=== PATIENT | male | born 1955 | race Caucasian/White ===

== ENCOUNTER → 2016-08-19 | Outpatient (CLI) | payer MEDICARE, OTHER ==
[2016-08-05 09:41] VITALS: BP 114/36
[~2016-08-19] MED LIST: ALPR0.254 PO; AMLO5TAB2 PO; ASCO500T2 PO; ASPI-482 PO; ATOR20TA58 PO; BISA10SU2 RC; CALC300T5 PO; CARV3.122 PO; CEFE1VIA5 IJ; DAPT500V IV; DARB60DI SQ; DOXY100C2 PO; DOXY100T9 PO; ENOX150D3 SQ; ENOX40DI SQ; ESCI10TA PO; FURO-68 PO; FURO80TA3 IV; GUAI600T38 PO; HYDR-2666 PO; HYDR25TA9 PO; Hydrocodone Bit/Acetaminophen PO; INSU100I13 SQ; INSU100I17 SQ; INSU100V13 SQ; IPRA4AER IH; LIDO700A4 TD; LISI40TA PO; METF10002 PO; METO5TAB55 PO; MULT1TAB52 PO; OMEP20CA5 PO; OXYC1TAB7 PO; OXYC5TAB88 PO; PANT40TA3 PO; PIOG45TA PO; RAMI10CA PO; SENN-22 PO; SENN-37 PO; TAMS0.4C2 PO; WARF4TAB7 PO; WARF6TAB PO; Warfarin Sodium MC; [UNRECOGNIZED DRUG - CODE] IV
== END ==
LOC: PMGWOUND 09:43
PROVIDERS: ATTEND Preventive Medicine Undersea and Hyperbaric Medicine
DX: E11.621 Type 2 diabetes mellitus with foot ulcer (principal); L97.421 Non-pressure chronic ulcer of left heel and midfoot limited to breakdown of skin; E11.69 Type 2 diabetes mellitus with other specified complication; M86.68 Other chronic osteomyelitis, other site; E11.22 Type 2 diabetes mellitus with diabetic chronic kidney disease; I13.2 Hypertensive heart and chronic kidney disease with heart failure and with stage 5 chronic kidney disease, or end stage renal disease; I50.9 Heart failure, unspecified; N18.6 End stage renal disease; I48.91 Unspecified atrial fibrillation; Z86.711 Personal history of pulmonary embolism
CPT/HCPCS: 11042

== ENCOUNTER → 2016-08-24 | Outpatient (CLI) | payer OTHER, MEDICARE ==
[2016-08-05 09:41] VITALS: BP 114/36
[2016-08-24 10:47] LABS: INR 2.2 (0.8-1.1); PROTHROMBIN TIME PATIENT 23.4 SEC (11.7-14.0)
== END | disposition home or self-care (01) ==
LOC: LAB 10:13
PROVIDERS: ATTEND Internal Medicine Nephrology
DX: N18.6 End stage renal disease (principal); Z99.2 Dependence on renal dialysis
CPT/HCPCS: 36415; 85610

== ENCOUNTER → 2016-08-26 | Outpatient (CLI) | payer MEDICARE, OTHER ==
[2016-08-05 09:41] VITALS: BP 114/36
== END | disposition home or self-care (01) ==
LOC: PMGWOUND 09:48
PROVIDERS: ATTEND Preventive Medicine Undersea and Hyperbaric Medicine
DX: E11.621 Type 2 diabetes mellitus with foot ulcer (principal); L97.424 Non-pressure chronic ulcer of left heel and midfoot with necrosis of bone; E11.69 Type 2 diabetes mellitus with other specified complication; M86.8X7 Other osteomyelitis, ankle and foot; E11.22 Type 2 diabetes mellitus with diabetic chronic kidney disease; I13.2 Hypertensive heart and chronic kidney disease with heart failure and with stage 5 chronic kidney disease, or end stage renal disease; I50.9 Heart failure, unspecified; N18.6 End stage renal disease; I48.91 Unspecified atrial fibrillation; Z87.01 Personal history of pneumonia (recurrent); Z86.711 Personal history of pulmonary embolism; Z89.511 Acquired absence of right leg below knee; Z89.412 Acquired absence of left great toe
CPT/HCPCS: 97597

== ENCOUNTER → 2016-09-02 | Outpatient (CLI) | payer MEDICARE, OTHER ==
[2016-08-05 09:41] VITALS: BP 114/36
== END | disposition home or self-care (01) ==
LOC: PMGWOUND 09:51
PROVIDERS: ATTEND Preventive Medicine Undersea and Hyperbaric Medicine
DX: E11.621 Type 2 diabetes mellitus with foot ulcer (principal); L97.424 Non-pressure chronic ulcer of left heel and midfoot with necrosis of bone; E11.22 Type 2 diabetes mellitus with diabetic chronic kidney disease; I13.2 Hypertensive heart and chronic kidney disease with heart failure and with stage 5 chronic kidney disease, or end stage renal disease; I50.9 Heart failure, unspecified; N18.6 End stage renal disease; I48.91 Unspecified atrial fibrillation; M86.8X7 Other osteomyelitis, ankle and foot; E11.69 Type 2 diabetes mellitus with other specified complication; Z86.711 Personal history of pulmonary embolism; Z87.01 Personal history of pneumonia (recurrent); Z89.412 Acquired absence of left great toe; Z89.511 Acquired absence of right leg below knee
CPT/HCPCS: 97597

== ENCOUNTER → 2016-09-09 | Outpatient (CLI) | payer MEDICARE, OTHER ==
[2016-08-05 09:41] VITALS: BP 114/36
== END | disposition home or self-care (01) ==
LOC: PMGWOUND 10:36
PROVIDERS: ATTEND Preventive Medicine Undersea and Hyperbaric Medicine
DX: E11.621 Type 2 diabetes mellitus with foot ulcer (principal); L97.424 Non-pressure chronic ulcer of left heel and midfoot with necrosis of bone; E11.22 Type 2 diabetes mellitus with diabetic chronic kidney disease; I13.2 Hypertensive heart and chronic kidney disease with heart failure and with stage 5 chronic kidney disease, or end stage renal disease; I50.9 Heart failure, unspecified; N18.6 End stage renal disease; E11.69 Type 2 diabetes mellitus with other specified complication; M86.8X7 Other osteomyelitis, ankle and foot; I48.91 Unspecified atrial fibrillation; Z87.01 Personal history of pneumonia (recurrent); Z86.711 Personal history of pulmonary embolism; Z89.511 Acquired absence of right leg below knee; Z89.412 Acquired absence of left great toe
CPT/HCPCS: 97597

== ENCOUNTER → 2016-09-16 | Outpatient (CLI) | payer MEDICARE, OTHER ==
[2016-08-05 09:41] VITALS: BP 114/36
== END | disposition home or self-care (01) ==
LOC: PMGWOUND 11:42
PROVIDERS: ATTEND Preventive Medicine Undersea and Hyperbaric Medicine
DX: E11.621 Type 2 diabetes mellitus with foot ulcer (principal); L97.424 Non-pressure chronic ulcer of left heel and midfoot with necrosis of bone; E11.69 Type 2 diabetes mellitus with other specified complication; M86.8X7 Other osteomyelitis, ankle and foot; I13.2 Hypertensive heart and chronic kidney disease with heart failure and with stage 5 chronic kidney disease, or end stage renal disease; N18.6 End stage renal disease; I50.9 Heart failure, unspecified; I48.91 Unspecified atrial fibrillation; Z87.01 Personal history of pneumonia (recurrent); Z86.711 Personal history of pulmonary embolism; Z89.412 Acquired absence of left great toe; Z89.511 Acquired absence of right leg below knee
CPT/HCPCS: 11042

== ENCOUNTER → 2016-09-23 | Outpatient (CLI) | payer OTHER, MEDICARE ==
[2016-08-05 09:41] VITALS: BP 114/36
== END | disposition home or self-care (01) ==
LOC: PMGWOUND 10:34
PROVIDERS: ATTEND Preventive Medicine Undersea and Hyperbaric Medicine
DX: E11.621 Type 2 diabetes mellitus with foot ulcer (principal); L97.424 Non-pressure chronic ulcer of left heel and midfoot with necrosis of bone; E11.69 Type 2 diabetes mellitus with other specified complication; M86.8X7 Other osteomyelitis, ankle and foot; E11.22 Type 2 diabetes mellitus with diabetic chronic kidney disease; I13.2 Hypertensive heart and chronic kidney disease with heart failure and with stage 5 chronic kidney disease, or end stage renal disease; N18.6 End stage renal disease; I50.9 Heart failure, unspecified; I48.91 Unspecified atrial fibrillation; Z87.01 Personal history of pneumonia (recurrent); Z86.711 Personal history of pulmonary embolism; Z89.412 Acquired absence of left great toe; Z89.511 Acquired absence of right leg below knee
CPT/HCPCS: 15275; Q4101

== ENCOUNTER → 2016-09-30 | Outpatient (CLI) | payer OTHER, MEDICARE ==
[2016-08-05 09:41] VITALS: BP 114/36
[~2016-09-30] MED LIST changes: +METF-620 PO; -METF10002 PO; -WARF6TAB PO; +WARF6TAB49 PO; +[UNRECOGNIZED DRUG - CODE] IV; -[UNRECOGNIZED DRUG - CODE] IV
== END | disposition home or self-care (01) ==
LOC: PMGWOUND 10:47
PROVIDERS: ATTEND Preventive Medicine Undersea and Hyperbaric Medicine
DX: E11.621 Type 2 diabetes mellitus with foot ulcer (principal); L97.421 Non-pressure chronic ulcer of left heel and midfoot limited to breakdown of skin; E11.69 Type 2 diabetes mellitus with other specified complication; M86.68 Other chronic osteomyelitis, other site; I48.91 Unspecified atrial fibrillation; E11.22 Type 2 diabetes mellitus with diabetic chronic kidney disease; I13.2 Hypertensive heart and chronic kidney disease with heart failure and with stage 5 chronic kidney disease, or end stage renal disease; I50.9 Heart failure, unspecified; N18.6 End stage renal disease; F15.90 Other stimulant use, unspecified, uncomplicated; Z86.711 Personal history of pulmonary embolism; Z89.511 Acquired absence of right leg below knee; Z89.412 Acquired absence of left great toe
CPT/HCPCS: 97597

== ENCOUNTER → 2016-10-07 | Outpatient (CLI) | payer OTHER, MEDICARE ==
[2016-08-05 09:41] VITALS: BP 114/36
== END | disposition home or self-care (01) ==
LOC: PMGWOUND 09:56
PROVIDERS: ATTEND Preventive Medicine Undersea and Hyperbaric Medicine
DX: E11.621 Type 2 diabetes mellitus with foot ulcer (principal); L97.421 Non-pressure chronic ulcer of left heel and midfoot limited to breakdown of skin; E11.69 Type 2 diabetes mellitus with other specified complication; M86.68 Other chronic osteomyelitis, other site; E11.22 Type 2 diabetes mellitus with diabetic chronic kidney disease; I13.2 Hypertensive heart and chronic kidney disease with heart failure and with stage 5 chronic kidney disease, or end stage renal disease; I50.9 Heart failure, unspecified; N18.6 End stage renal disease; I48.91 Unspecified atrial fibrillation; F15.90 Other stimulant use, unspecified, uncomplicated; Z86.711 Personal history of pulmonary embolism; Z89.511 Acquired absence of right leg below knee; Z89.412 Acquired absence of left great toe
CPT/HCPCS: 97597

== ENCOUNTER → 2016-10-14 | Outpatient (CLI) | payer OTHER, MEDICARE ==
[2016-08-05 09:41] VITALS: BP 114/36
== END | disposition home or self-care (01) ==
LOC: PMGWOUND 10:20
PROVIDERS: ATTEND Preventive Medicine Undersea and Hyperbaric Medicine
DX: E11.621 Type 2 diabetes mellitus with foot ulcer (principal); L97.421 Non-pressure chronic ulcer of left heel and midfoot limited to breakdown of skin; L89.313 Pressure ulcer of right buttock, stage 3; L89.892 Pressure ulcer of other site, stage 2; E11.69 Type 2 diabetes mellitus with other specified complication; M86.68 Other chronic osteomyelitis, other site; I48.91 Unspecified atrial fibrillation; E11.22 Type 2 diabetes mellitus with diabetic chronic kidney disease; I13.2 Hypertensive heart and chronic kidney disease with heart failure and with stage 5 chronic kidney disease, or end stage renal disease; I50.9 Heart failure, unspecified; N18.6 End stage renal disease; Z86.711 Personal history of pulmonary embolism; Z89.511 Acquired absence of right leg below knee
CPT/HCPCS: 99214

== ENCOUNTER → 2016-10-21 | Outpatient (CLI) | payer OTHER, MEDICARE ==
[2016-08-05 09:41] VITALS: BP 114/36
[~2016-10-21] MED LIST changes: +ALPR1TAB6 PO; +DIPH1TAB PO; +FOLI0.8T21 PO; +METO10TA81 PO; +PIOG45TA19 PO; +SULF1TAB3 PO; +WARF2TAB7 PO
== END | disposition home or self-care (01) ==
LOC: PMGWOUND 09:17
PROVIDERS: ATTEND Preventive Medicine Undersea and Hyperbaric Medicine
DX: E11.621 Type 2 diabetes mellitus with foot ulcer (principal); L97.424 Non-pressure chronic ulcer of left heel and midfoot with necrosis of bone; L89.313 Pressure ulcer of right buttock, stage 3; L89.892 Pressure ulcer of other site, stage 2; I13.2 Hypertensive heart and chronic kidney disease with heart failure and with stage 5 chronic kidney disease, or end stage renal disease; N18.6 End stage renal disease; I50.9 Heart failure, unspecified; E11.22 Type 2 diabetes mellitus with diabetic chronic kidney disease; I48.91 Unspecified atrial fibrillation; E11.69 Type 2 diabetes mellitus with other specified complication; M86.8X7 Other osteomyelitis, ankle and foot; M86.68 Other chronic osteomyelitis, other site; Z87.01 Personal history of pneumonia (recurrent); Z86.711 Personal history of pulmonary embolism; Z89.412 Acquired absence of left great toe; Z89.511 Acquired absence of right leg below knee
CPT/HCPCS: 99214

== ENCOUNTER 2016-10-22 05:58 | Inpatient (IN) | payer OTHER, MEDICARE ==
[2016-10-22] VITALS (20 sets, daily range): BP systolic 67–150; BP diastolic 30–65
[~2016-10-22] VITALS: Ht 190.5 cm; Wt 122.9 kg
[~2016-10-22 05:58] MED LIST changes: -ALPR1TAB6 PO; -DIPH1TAB PO; -FOLI0.8T21 PO; -METO10TA81 PO; -PIOG45TA19 PO; -SULF1TAB3 PO; -WARF2TAB7 PO
[2016-10-22] MEDS ORDERED: fentaNYL PF VIAL 100 MCG/2 ML VIAL IV PRN (06:30)
[2016-10-22] MEDS ORDERED: CONTRAST GIVEN MC PRN ×2 (06:45→07:00)
[2016-10-22] MEDS: PANTOPRAZOLE SODIUM IV 80 MG in IV NORMAL SALINE 100ML 100 ML IV SCH ×2 (06:56→17:00)
--- NOTE | 2016-10-22 06:59 | ED.ADGEN ---
Past Medical History Past Medical History: A-Fib, CHF, Diabetes-Type II, Hypertension, Renal Failure , Other Additional Past Medical Histor: Respiratory arrest Past Surgical History: Other Additional Past Surgical Histo: PEG placement, right BKA, left great toe, left arm shunt, Alcohol Use: None Drug Use: None Adult General Chief Complaint Chief Complaint: RECTAL BLEED HPI HPI Patient is a 61 year old m, hx of type II DM, s/p L bka, htn, ESRD on HD, TTS, scheduled for HD today, p/w c/o dark stool x 2 days, following brown loose stool , multiple emesis w/ dark material since yesterday, multiple episodes. Pt on warfarin 2/2 afib/PE/DVT hx, no hx of GI bleeding, experiencing abd "discomfort ", nausae, no SOB, CP, + for chills, temp 99.4 PO in ED. C/O severe fatigue. No injuries, no recent travel, no sick contacts or exposures. No med changes. Last INR 2.9 last week. Review of Systems Review of Systems Constitutional: Denies fever or chills. [] Eyes: Denies change in visual acuity. [] HENT: Denies nasal congestion or sore throat. [] Respiratory: Denies cough or shortness of breath. [] Cardiovascular: Denies chest pain or edema. [] GI: Abd pain, n/v/d, bloody stool and emesis. : Denies dysuria. [] Musculoskeletal: Denies back pain or joint pain. [] Integument: Denies rash. [] Neurologic: Denies headache, focal weakness or sensory changes. [] Endocrine: Denies polyuria or polydipsia. [] Lymphatic: Denies swollen glands. [] Psychiatric: Denies depression or anxiety. [] Current Medications Current Medications Current Medications Medications (Trade) Dose Ordered Sig/Nanette Start Time Stop Time Status Last Admin Dose Admin Fentanyl Citrate (Fentanyl 2ml Vial) 25 mcg PRN Q15MIN PRN 10/22/16 06:30 10/23/16 06:29 Furosemide (Lasix) 40 mg 1X PRN PRN 10/22/16 07:45 10/23/16 07:44 Info (Do NOT chart on this entry -- for MONITORING) 1 each PRN DAILY PRN 10/22/16 07:00 10/24/16 06:59 Iohexol (Omnipaque 300 Mg/ml) 75 ml 1X ONCE 10/22/16 07:00 10/22/16 07:01 DC Iohexol (Omnipaque 350 Mg/ml) 90 ml 1X ONCE 10/22/16 07:00 10/22/16 07:01 DC 10/22/16 07:34 90 ML Metoclopramide HCl (Reglan) 10 mg 1X ONCE 10/22/16 07:00 10/22/16 07:01 DC 10/22/16 06:51 10 MG Octreotide Acetate 500 mcg/ Sodium Chloride 101 ml @ 0 mls/hr CONT PRN 10/22/16 07:00 10/22/16 06:55 10 MLS/HR Octreotide Acetate (SandoSTATIN) 100 mcg 1X ONCE 10/22/16 07:00 10/22/16 07:01 DC 10/22/16 06:52 100 MCG Ondansetron HCl (Zofran) 4 mg 1X ONCE 10/22/16 07:00 10/22/16 07:01 DC 10/22/16 06:51 4 MG Pantoprazole Sodium (Protonix Vial) 80 mg 1X ONCE 10/22/16 07:00 10/22/16 07:01 DC 10/22/16 06:52 80 MG Pantoprazole Sodium 80 mg/ Sodium Chloride 100 ml @ 10 mls/hr Q10H 10/22/16 07:00 10/22/16 06:56 10 MLS/HR Allergies Allergies Allergies Coded Allergies Type Severity Reaction Last Updated Verified I S O L A T I O N *CONTACT* Allergy Unknown 08/02/15 Yes No Known Medication Allergies Allergy Unknown 08/02/15 Yes Physical Exam Physical Exam Constitutional: Well developed, well nourished, uncomfortable, ill in appearance HENT: Normocephalic, atraumatic, bilateral external ears normal, oropharynx moist, no oral exudates, nose normal. [] Eyes: PERRLA, EOMI, conjunctiva pale, no discharge. [] Neck: Normal range of motion, no tenderness, supple, no stridor. [] Cardiovascular:Heart rate regular rhythm, no murmur, S1, S2, no rubs or gallops. No chest wall TTP, no crepitus.[] Lungs & Thorax: Bilateral breath sounds clear to auscultation, no W/R/R.[] Abdomen: Bowel sounds normal, soft, obese, MTTP epigastric region, periumbilical, no masses, no pulsatile masses. [] Skin: Warm, dry, no erythema, no rash. [] Back: No tenderness, no CVA tenderness. [] Extremities: No tenderness, no cyanosis, no clubbing, ROM intact, no edema. - Peter's sign.[] Neurologic: Alert and oriented X 3, normal motor function, normal sensory function, no focal deficits noted. [] Psychologic: Affect normal, judgement normal, mood normal. [] Current Patient Data Vital Signs Vital Signs Date Time Temp Pulse Resp B/P (MAP) Pulse Ox O2 Delivery O2 Flow Rate FiO2 10/22/16 08:25 57 20 88/50 (63) 95 Nasal Cannula 2.0 10/22/16 06:13 99.4 99.4 Lab Values Laboratory Tests Test 10/22/16 06:10 10/22/16 07:00 Stool Occult Blood Positive (NEG) White Blood Count 21.5 x10^3/uL (4.0-11.0) H Red Blood Count 2.22 x10^6/uL (4.30-5.70) L Hemoglobin 6.6 g/dL (13.0-17.5) *L Hematocrit 20.4 % (39.0-53.0) *L Mean Corpuscular Volume 92 fL (79-100) Mean Corpuscular Hemoglobin 30 pg (25-35) Mean Corpuscular Hemoglobin Concent 32 g/dL (31-37) Red Cell Distribution Width 16.9 % (11.5-14.5) H Platelet Count 316 x10^3/uL (140-400) Neutrophils (%) (Auto) 95 % (31-73) H Lymphocytes (%) (Auto) 2 % (24-48) L Monocytes (%) (Auto) 3 % (0-9) Eosinophils (%) (Auto) 0 % (0-3) Basophils (%) (Auto) 0 % (0-3) Neutrophils # (Auto) 20.4 x10^3uL (1.8-7.7) H Lymphocytes # (Auto) 0.3 x10^3/uL (1.0-4.8) L Monocytes # (Auto) 0.7 x10^3/uL (0.0-1.1) Eosinophils # (Auto) 0.0 x10^3/uL (0.0-0.7) Basophils # (Auto) 0.1 x10^3/uL (0.0-0.2) Segmented Neutrophils % 70 % (35-66) H Band Neutrophils % 23 % (0-9) H Lymphocytes % 3 % (24-48) L Monocytes % 4 % (0-10) Toxic Granulation Slight Platelet Estimate Adequate (ADEQUATE) Hypochromasia Slight Poikilocytosis Slight Anisocytosis Slight Prothrombin Time 34.2 SEC (11.7-14.0) H Prothrombin Time INR 3.7 (0.8-1.1) H PTT 41 SEC (24-38) H Sodium Level 133 mmol/L (136-145) L Potassium Level 4.6 mmol/L (3.5-5.1) Chloride Level 92 mmol/L (98-107) L Carbon Dioxide Level 19 mmol/L (21-32) L Anion Gap 22 (6-14) H Blood Urea Nitrogen 95 mg/dL (8-26) H Creatinine 6.4 mg/dL (0.7-1.3) H Estimated GFR (Cockcroft-Gault) 9.0 BUN/Creatinine Ratio 15 (6-20) Glucose Level 208 mg/dL (70-99) H Lactic Acid Level 4.4 mmol/L (0.4-2.0) *H Calcium Level 8.5 mg/dL (8.5-10.1) Total Bilirubin 0.6 mg/dL (0.2-1.0) Aspartate Amino Transferase (AST) 23 U/L (15-37) Alanine Aminotransferase (ALT) 28 U/L (16-63) Alkaline Phosphatase 126 U/L (46-116) H Troponin I Quantitative 0.218 ng/mL (0.000-0.055) Total Protein 7.2 g/dL (6.4-8.2) Albumin 3.3 g/dL (3.4-5.0) L Albumin/Globulin Ratio 0.8 (1.0-1.7) L Laboratory Tests 10/22/16 07:00 Laboratory Tests 10/22/16 07:00 EKG EKG EC: A. fib, 77 BPM, baseline artifact, low limb lead voltage, L axis deviation, QRS 104, QTC 532, abnormalities in inf, ant lead. Abnormal ECG, does not meet STEMI criteria. As interpreted by me. Radiology/Procedures Radiology/Procedures [][place] [id number] IMAGING REPORT Signed PATIENT: KLEBER NEGRETE ACCOUNT: [id number] : 1955 LOCATION: ER AGE: 61 SEX: M EXAM STATUS: REG ER ORD. PHYSICIAN: MOHINDER MONTANO DO REASON: GI bleeding/weakness PROCEDURE: PORTABLE CHEST 1V Indication weakness. GI bleeding. Protocol study. A single view of the chest was obtained and is compared to an examination 08/17/2015. Cardiomegaly is again seen and appears unchanged. There is no congestive heart failure. There is no focal infiltrate. Significant pleural fluid is not seen. Overall a significant change in the appearance of the chest compared to the previous exam is not seen. Vascular stent in the area of the left axilla is noted. IMPRESSION: Unchanged cardiomegaly. No acute or focal process. No significant change DICTATED and SIGNED BY: SABRINA LEE MD DATE: 10/22/16729 CC: MOHINDER MONTANO DO; RADHA MEYER MD ~ Impressions: [address] [id number] IMAGING REPORT Signed PATIENT: KLEBER NEGRETE ACCOUNT: [id number] : 1955 LOCATION: ER AGE: 61 SEX: M EXAM STATUS: REG ER ORD. PHYSICIAN: MOHINDER MONTANO DO REASON: GI bleed/fever/diarrhea PROCEDURE: CT ABD PELV W/ IV CONTRST ONLY Indication GI bleeding. Multiphase imaging through the abdomen and pelvis was performed. Initially noncontrast imaging through the abdomen and pelvis was performed. This was followed by imaging during the portal venous phase and finally delayed images. There is overall not good opacification of the vascular structures. No arterial phase imaging was obtained. No recent CT imaging of the abdomen or pelvis is available.. No definite GI bleeding is seen but again the study is very limited in this regard. The lung bases are clear. There is mild diffuse soft tissue swelling suggesting a systemic process such as anasarca. There is a small periumbilical hernia which appears uncomplicated. The liver and spleen appear unremarkable. There is a small pericardial effusion. There is sludge and/or small stones in the dependent portion of the gallbladder. No pancreatic abnormality is seen. The [place] kidneys are small but otherwise unremarkable. No pancreatic abnormality is seen. There is a moderate amount of abdominal ascites. A focal mass or inflammatory process in the abdomen is not seen. No focal mass or inflammatory process is seen in the pelvis. Healed fracture deformity associated with the left ischium is noted. Sacral plasty changes are noted in the pelvis. IVC filter is noted. IMPRESSION: Very limited study evaluating for GI bleeding. Gross GI bleeding is not seen. Abdominal ascites. Sludge versus small stones in the gallbladder. Generalized soft tissue swelling suggesting anasarca. Chronic musculoskeletal changes. Small kidneys. DICTATED and SIGNED BY: SABRINA LEE MD DATE: 10/22/16 0811 CC: MOHINDER MONTANO DO; RADHA MEYER MD ~ Course & Med Decision Making Course & Med Decision Making Pertinent Labs and Imaging studies reviewed. (See chart for details) Patient without any emesis or stool in the emergency department. Hemoglobin resulted at 6.6, discussed the patient at bedside, he is agreeable to receiving a blood transfusion, also receiving FFP, consent paperwork was signed at bedside with the patient. Blood pressures are 100s over 50s, heart rate is in the 70s, oxygen saturation remains in the mid 90s on 2 L nasal cannula. INR of 3.7, FFP ordered as stated, also received 10 mg of oral vitamin K. CT of abdomen and pelvis done with GI parameters, denied identify a source of GI bleeding, or other concerning findings, aside from a small amount of ascites. Chest x-ray was unremarkable. Findings as above discussed with Dr. Meyer,, patient's primary care provider. At this point the patient's blood pressure is in the upper 80s over 40s and 50s, heart rate remained stable, oxygen saturations remained stable on supple oxygen, with the patient's elevated INR, and the fact that he has 3 IVs and is currently receiving blood transfusion along with Protonix bolus and Protonix drip, started received an octreotide bolus octreotide drip is running, we'll hold off on placing a central line at this time. Patient accepted his service as a full admission to the ICU, consultation also placed for Dr. Mcmullen of GI, who recommended holding the octreotide infusion, and continuing with other treatment as stated, he will evaluate the patient in the ICU. I also spoke with Dr. Donovan of nephrology, who will arrange for dialysis to be performed in the ICU. Dr. Damon of cardiology was also consult it, to see the patient in the ICU, although he does not state with him in the ED, the patient's elevated troponin, although is likely due to the patient's demand ischemia, and possibly due to his lack of dialysis and simple accumulation of the troponin due to his inability to clear. Patient noted to have a elevate lactic of 4.4, which was repeated, he is denying any abdominal pain or other complaints this time, states that he is feeling better with blood infusing at this time. I stated patient was initially 99.4, repeat temperature was 100.4, this was prior to the initiation of blood as stated, patient did receive Tylenol in the emergency department, is also receive Lasix, with transfusion pending as stated. Patient's blood pressure remained in the upper 80s over 40s and 50s, heart rate in the 70s, oxygen saturation stable on 2 L nasal cannula, temperature transfer to the ICU with plan as above. Bridge orders entered per discussion. Dragon Disclaimer Dragon Disclaimer This electronic medical record was generated, in whole or in part, using a voice recognition dictation system. Critical Care Note Comments Critical care time exclusive of procedures was 45 minutes as stated, both at bedside with patient, and discussion with physicians to coordinate the patient' s care. Problems: Critical Care Time Critical care time was 45 minutes exclusive of procedures. MOHINDER MONTANO DO October 22, 2016 06:59
[2016-10-22] MEDS ORDERED: ONDANSETRON PF 4 MG/2 ML VIAL. IV ONE (07:00)
[2016-10-22] MEDS ORDERED: IOHEXOL 300 MG/ML 75 ML VIAL IV ONE (07:00)
[2016-10-22] MEDS ORDERED: IOHEXOL 350 MG/ML 100 ML VIAL. IV ONE (07:00)
[2016-10-22] MEDS ORDERED: OCTREOTIDE 500 MCG in IV NORMAL SALINE 100ML 100 ML IV PRN (07:00)
[2016-10-22] MEDS ORDERED: PANTOPRAZOLE IV PUSH 40 MG VIAL. IVP ONE (07:00)
[2016-10-22] MEDS ORDERED: METOCLOPRAMIDE HCL 10 MG/2 ML VIAL. IV ONE (07:00)
[2016-10-22] MEDS ORDERED: OCTREOTIDE 100 MCG/ML VIAL IV ONE (07:00)
--- NOTE | 2016-10-22 07:08 | ACF ---
Admission Forms Criteria GASTROINTESTINAL BLEEDING Clinical Indications for Inpatient Care (Place 'X' for any and all applicable criteria): Ongoing inpatient care may be indicated for gastrointestinal bleeding with ANY ONE of the following (4)(20)(21)(22)(23)(24): [X]I. Active bleeding (eg, fresh voluminous blood in emesis or nasogastric aspirate, or per rectum) [ ]II. Hemodynamic instability [ ]III. Anticoagulation therapy or coagulopathy ((eg, advanced liver disease, irreversible anticoagulation) [ ]IV. Ischemic colitis (22) [ ]V. Endoscopy showing arterial bleeding, adherent clot, nonbleeding visible vessel, varices, flat red spots, ulcer size greater than 2 cm, or portal hypertensive gastropathy [ ]. High-risk low platelet count [ ]VII. Anemia requiring inpatient care as indicated by ANY ONE of the following a)[ ] Cognitive impairment b)[ ] Syncope c)[ ] Heart failure d)[ ] Chest pain e)[ ] Dyspnea f)[ ] Other findings suggesting inadequate perfusion (eg, peripheral or myocardial ischemia, end organ dysfunction) [ ]VIII. High-risk low platelet count [ ]IX. Suspected variceal cause of bleeding as indicated by ANY ONE of the following(27)(28): a)[ ] Known varices b)[ ] Hepatomegaly or splenomegaly c)[ ] Ascites d)[ ] Jaundice or scleral icterus e)[ ] History of liver disease (eg, cirrhosis) f)[ ] Physical findings of portal hypertension (eg, caput medusa) g)[ ] Comorbid disorder indicating risk for portal vein thrombosis (eg , abdominal surgery, sepsis, shock, exchange transfusion, prior umbilical vein catheterization) Extended stay may be needed until ALL of the following are present(20)(38)(47): [ ]a) Hemodynamic stability [ ]b) No evidence of active bleeding (eg, stable Hematocrit) [ ]c) Platelet count, prothrombin time, and partial thromboplastin time acceptable for next level of care [ ]d) Surgical or other acute intervention not needed [ ]e) Oral hydration and diet tolerated The original [employer] content created by Melissa Reece has been revised. The portions of the content which have been revised are identified through the use of italic text or in bold, and Melissa Reece has neither reviewed nor approved the modified material. All other unmodified content is copyright [facility]. Please see references footnoted in the original [facility] edition 2016 LIBORIO VALENTINO October 22, 2016 07:08
[2016-10-22 07:18] LABS: BASO # 0.1 x10^3/uL (0.0-0.2); BASO % 0 % (0-3); EOS % 0 % (0-3); LYMPH # 0.3 x10^3/uL (1.0-4.8); LYMPH % 2 % (24-48); MEAN CORPUSCULAR HEMOGLOBIN 30 pg (25-35); MEAN CORPUSCULAR HGB CONC 32 g/dL (31-37); MEAN CORPUSCULAR VOLUME 92 fL (79-100); MONO % 3 % (0-9); NEUT % 95 % (31-73); PLATELET COUNT 316 x10^3/uL (140-400); RED BLOOD COUNT 2.22 x10^6/uL (4.30-5.70); RED CELL DISTRIBUTION WIDTH 16.9 % (11.5-14.5); WHITE BLOOD COUNT 21.5 x10^3/uL (4.0-11.0)
[2016-10-22 07:22] LABS: CALCIUM 8.5 mg/dL (8.5-10.1); CREATININE 6.4 mg/dL (0.7-1.3); POTASSIUM 4.6 mmol/L (3.5-5.1)
[2016-10-22 07:23] LABS: HEMOGLOBIN 6.6 g/dL (13.0-17.5)
[2016-10-22 07:24] LABS: HEMATOCRIT 20.4 % (39.0-53.0)
[2016-10-22 07:25] LABS: NEG OBC FOB NEG; POS OBC FOB POS
[2016-10-22 07:26] LABS: INR 3.7 (0.8-1.1); PROTHROMBIN TIME PATIENT 34.2 SEC (11.7-14.0)
[2016-10-22 07:28] LABS: ALBUMIN 3.3 g/dL (3.4-5.0); ALBUMIN/GLOBULIN RATIO 0.8 (1.0-1.7); TOTAL BILIRUBIN 0.6 mg/dL (0.2-1.0); TOTAL PROTEIN 7.2 g/dL (6.4-8.2)
--- NOTE | 2016-10-22 07:34 | RAD ---
Indication weakness. GI bleeding. Protocol study. A single view of the chest was obtained and is compared to an examination 08/17/2015. Cardiomegaly is again seen and appears unchanged. There is no congestive heart failure. There is no focal infiltrate. Significant pleural fluid is not seen. Overall a significant change in the appearance of the chest compared to the previous exam is not seen. Vascular stent in the area of the left axilla is noted. IMPRESSION: Unchanged cardiomegaly. No acute or focal process. No significant change
[2016-10-22] MEDS ORDERED: FUROSEMIDE 40 MG/4 ML VIAL. IV PRN (07:45)
--- NOTE | 2016-10-22 07:54 | EKG ---
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
--- NOTE | 2016-10-22 08:30 | RAD ---
Indication GI bleeding. Multiphase imaging through the abdomen and pelvis was performed. Initially noncontrast imaging through the abdomen and pelvis was performed. This was followed by imaging during the portal venous phase and finally delayed images. There is overall not good opacification of the vascular structures. No arterial phase imaging was obtained. No recent CT imaging of the abdomen or pelvis is available.. No definite GI bleeding is seen but again the study is very limited in this regard. The lung bases are clear. There is mild diffuse soft tissue swelling suggesting a systemic process such as anasarca. There is a small periumbilical hernia which appears uncomplicated. The liver and spleen appear unremarkable. There is a small pericardial effusion. There is sludge and/or small stones in the dependent portion of the gallbladder. No pancreatic abnormality is seen. The [place] kidneys are small but otherwise unremarkable. No pancreatic abnormality is seen. There is a moderate amount of abdominal ascites. A focal mass or inflammatory process in the abdomen is not seen. No focal mass or inflammatory process is seen in the pelvis. Healed fracture deformity associated with the left ischium is noted. Sacral plasty changes are noted in the pelvis. IVC filter is noted. IMPRESSION: Very limited study evaluating for GI bleeding. Gross GI bleeding is not seen. Abdominal ascites. Sludge versus small stones in the gallbladder. Generalized soft tissue swelling suggesting anasarca. Chronic musculoskeletal changes. Small kidneys.
[2016-10-22] MEDS ORDERED: PHYTONADIONE (VIT K1) 5 MG TABLET PO ONE (09:15)
[2016-10-22 09:41] LABS: PLT ESTIMATE ADEQUATE (ADEQUATE)
[2016-10-22 09:42] LABS: HYPOCHROMIA SLIGHT
[2016-10-22 09:43] LABS: ANISOCYTOSIS SLIGHT; POIKILOCYTOSIS SLIGHT; TOXIC GRANULATION SLIGHT
[2016-10-22] MEDS ORDERED: DEXTROSE 50% 25 GM / 50ML DISP.SYRIN. IV PRN ×2 (09:45→11:45)
[2016-10-22] MEDS ORDERED: ACETAMINOPHEN 325 MG TABLET. PO PRN (09:45)
--- NOTE | 2016-10-22 09:50 | ACF ---
Admission Forms Criteria INTENSIVE CARE UNIT ADMISSION Intensive Care Admission Guidelines ( Place 'X' for any and all applicable criteria): Admission to ICU may be indicated when need is demonstrated by ANY ONE of the following (1)(2)(3)(4)(5)(6)(7)(8)(9) : [X]I. Vital sign abnormalities, including ANY ONE of the following: [ ]a) Systolic arterial pressure less than 90 mm Hg, or 20 mm Hg below the patient's usual pressure [ ]b) Diastolic arterial pressure greater than 120 mm Hg [X]c) Mean arterial pressure less than 70 mm Hg [A] [ ]d) Pulse less than 40 or greater than 140 beats per minute (in adult) [ ]e) Respiratory rate greater than 35 or less than 8 breaths per minute [ ]II. Laboratory findings (new), including ANY ONE of the following (10): [ ]a) Saturation of arterial oxygen less than 88% or partial pressure of oxygen less than 60 mm Hg (8.0 kPa) despite oxygen supplementation [ ]b) Rising partial pressure of carbon dioxide with respiratory acidosis [ ]c) pH less than 7.2 or greater than 7.65 [ ]d) Serum glucose greater than 800 mg/dL (44.4 mmol/L) [ ]e) Serum sodium less than 110 mEq/L (mmol/L) or greater than 160 mEq/L (mmol/L) [ ]f) Serum potassium less than 2 mEq/L (mmol/L) or greater than 7 mEq /L (mmol/L) [ ]g) Serum calcium greater than 15 mg/dL (3.75 mmol/L) [ ]h) Serum phosphorus less than 1 mg/dL (0.32 mmol/L) [ ]i) Toxic drug level or poisoning causing or likely to cause neurologic or Hemodynamic instability [ ]j) Less severe laboratory abnormalities contributing to ANY ONE of the following: [ ]i) Seizure [ ]ii) Altered mental status [ ]iii) Muscle weakness [ ]iv) Arrhythmias [ ]v) Hemodynamic instability [ ]vi) Other significant clinical manifestations [ ]III. Electrocardiogram (or cardiac monitoring) findings, including ANY ONE of the following: [ ]a) Inherently unstable or life-threatening arrhythmia (eg, sustained ventricular tachycardia, ventricular fibrillation, asystole) [ ]b) Arrhythmia causing severe hypotension (eg, bradycardia, tachycardia) [ ]c) Complete heart block causing severe hypotension [ ]d) Other findings indicative of a need for intensive care (eg , AZ) [ ]IV.Physical findings, including ANY ONE of the following: [ ]a) Threatened airway [ ]b) Sudden altered mental status [ ]c) Repeated or prolonged seizures [ ]d) Coma [ ]e) New-onset anuria (urine output <0.1 mL/kg/hr over 4 h) [ ]f) Cyanosis (new) [ ]g) Cardiac tamponade [ ]h) Status post respiratory or cardiac arrest [ ]i) Severe clark (eg, partial thickness clark over more than 10% of body surface, third-degree clark) [ ]j) Findings consistent with abdominal emergency (eg, peritoneal signs) [ ]V.Imaging findings, such as dissecting aneurysm or ruptured viscus [ ].Specific intervention or monitoring needed, as indicated by ANY ONE of the following: [ ]a) New need for assisted ventilation, invasive or noninvasive(11) [ ]b) New need for intubation (eg, to protect airway) [ ]c) New tracheostomy (less than 48 hours old) [ ]d) Hourly vital signs or neurologic checks [ ]e) Pulmonary artery line monitoring needed [ ]f) Continuous arterial line monitoring needed [ ]g) Continuous IV vasoactive drugs [ ]h) Continuous IV antiarrhythmics [ ]i) Large volume IV fluid resuscitation (eg, greater than 6 L per day ) [ ]j) Large or rapid transfusion needs (eg, more than 6 units within 24 hours) [ ]k) High-risk IV treatment, such as bolus IV medicatns or mannitol infusion [ ]l) Acute cardiac pacing [ ]m) Intra-aortic balloon pump [ ]n) Ventricular assist device [ ]o) Cardioversion [ ]p) Pericardiocentesis [ ]q) Hemodialysis in unstable patient [ ]r) Continuous renal replacement therapy (eg, continuous veno-venous hemofiltration) [ ]s) Peritoneal dialysis initiation [ ]t) Emergency bronchoscopic therapy (eg, for hemoptysis) [ ]u) Emergency endoscopic therapy for bleeding [ ]v) Balloon tamponade for variceal bleeding [ ]w) Intracranial pressure monitoring or tissue oxygen monitoring [ ]x) Ventriculostomy monitoring [ ]y) Treatment of ongoing seizures [ ]z) Induced hypothermia or coma [ ]aa) Ongoing frequent testing and treatment for acute conditions, including ANY ONE of the following: [ ]i) Correction of severe metabolic acidosis/ alkalosis [ ]ii). Severe fluid overload [ ]iii) Cerebral edema [ ]iv) Monitoring or suctioning for respiratory insufficiency or acidosis [ ]v) Monitoring for active bleeding [ ]bb) Rapid desensitization for high-risk hypersensitivity reaction to required medication (eg, penicillin)(12) [ ]cc) Other need for treatment or monitoring not available outside the ICU [ ]VII.Cardiology diagnoses or procedures, including ANY ONE of the following (13)(14)(15)(16)(17): [ ]a) Chest pain with ANY ONE of the following: [ ]i) Hemodynamic instability [ ]ii) Suspicion of diagnoses needing ICU care (eg, aortic dissection) [ ]iii) New unstable or symptomatic arrhythmia or ECG finding (eg, ventricular tachycardia, ventricular fibrillation, advanced heart block) [ ]iv) Syncope or near-syncope [ ]v) SBP less than 100 mm Hg [ ]vi) Pulmonary edema thought to be due to ischemia [ ]vii) New or worsening mitral regurgitation murmur, S3 , or rales [ ]b) Acute AZ with complications as indicated by ANY ONE of the following: [ ]i) Persistent chest pain [ ]ii) Hemodynamic instability [ ]iii) New unstable or symptomatic arrhythmia or ECG finding (eg, ventricular tachycardia, ventricular fibrillation, advanced heart block) [ ]iv) Syncope or near-syncope [ ]v) Pulmonary edema thought to be due to ischemia [ ]vi) New or worsening mitral regurgitation murmur, S3 , or rales [ ]vii) New-onset bundle branch block [ ]viii) Hemorrhagic complication (eg, intracranial or access site bleed following thrombolysis) [ ]c) Cardiac arrhythmia or conduction defect with Hemodynamic instability [ ]d) Complication of cardiac ablation, including ANY ONE of the following(18): [ ]i) Pericardial tamponade [ ]ii) Hemodynamic instability [ ]iii) Thromboembolic stroke [ ]iv) Aortic valve injury [ ]v) Vascular injuries [ ]vi) Esophageal perforation [ ]vii) Severe arrhythmia [ ]viii) Air embolism [ ]ix) Other severe complication [ ]e) Cardiogenic shock [ ]f) Hypertensive emergency, with need for ANY ONE of the following(19): [ ]i) IV antihypertensive therapy [ ]ii) Invasive hemodynamic monitoring (eg, arterial line) [ ]g) Pericardial tamponade [ ]h) Severe heart failure, with ANY ONE of the following(15): [ ]i) Respiratory failure [ ]ii) Cardiogenic shock [ ]iii) Severe arrhythmias [ ]iv) Evidence of cardiac ischemia [ ]i Myocarditis, with ANY ONE of the following [ ]i) Hemodynamic instability [ ]ii) Respiratory failure [ ]iii) Severe arrhythmias [ ]iv) Need for cardiac assist device (eg, left ventricular assist device or extracorporeal membrane oxygenator) [ ]j) Status post cardiac arrest(20) [ ]VIII. Cardiovascular Surgery diagnoses or procedures, including ANY ONE of the following.(21)(22): [ ]a) Acute aortic dissection [ ]b) Aortic surgery for ANY ONE of the following: [ ]i) Thoracic aneurysm [ ]ii) Abdominal aneurysm with ANY ONE of the following(23): [ ]1) Emergency repair [ ]2) Severe cardiopulmonary disease [ ]3) Dialysis-dependent renal failure [ ]4) Need for IV blood pressure control [ ]5) Need for ongoing ventilatory support [ ]6) Perioperative complications, including ANY ONE of the following: [ ]A. Sustained Hemodynamic instability [ ]B. Cardiac ischemia or arrhythmia [ ]C. Hypothermia (less than 35 degrees C (95 degrees F)) [ ]D. Blood transfusion greater than 3 L [ ]iii) Aortic coarctation operative excision or repair [ ]iv) Aortofemoral or aortoiliac bypass with ANY ONE of the following: [ ]1) Continued intubation [ ]2) Hemodynamic instability [ ]3) Need for IV blood pressure control [ ]4) Severe cardiopulmonary disease [ ]c) Cardiac surgery [ ]d) Carotid endarterectomy or stent placement with ANY ONE of the following: [ ]i) Blood pressure <100/60 mm Hg or >160/90 mm Hg despite 4 h of postanesthetic management [ ]ii) New or progressive neurologic defect [ ]iii) Chest pain [ ]iv) Continued intubation [ ]v) Heart failure [ ]vi) Airway compromise by hematoma or vocal cord paralysis [ ]vi) Need for IV blood pressure control [ ]e) Heart transplant [ ]f) Infrainguinal peripheral vascular surgery with ANY ONE of the following: [ ]i) Hemodynamic instability [ ]ii) Acute complications such as persistent chest pain or respiratory distress [ ]iii) Requirement for IV antiarrhythmic or vasoactive agent [ ]iv) Requirement for pulmonary artery catheter [ ]v) Severe hypertension despite 6 hours of recovery room management [ ]g) Complications of any surgery requiring ICU intervention as indicated by ANY ONE of the following(24): [ ]i) Hemodynamic instability [ ]ii) Myocardial infarction with complications (eg, severe arrhythmia, hypotension) [ ]iii) Excessive bleeding or severe coagulopathy [ ]iv) Respiratory failure [ ]v) Renal failure [ ]vi) Airway instability or obstruction [ ]vii) Neurologic deterioration [ ]viii) Infection with likelihood of sepsis syndrome or significant fluid shifts [ ]IX.Endocrinology diagnoses or procedures, including ANY ONE of the following(25)(26): [ ]a) Adrenal crisis with Hemodynamic instability(27) [ ]b) Pheochromocytoma with ANY ONE of the following(28): [ ]i) Hypertensive crisis [ ]ii) Postoperative Hemodynamic instability [ ]iii) Need for IV vasoactive therapy [ ]iv) Need for invasive arterial or central venous pressure monitoring [ ]v) Organ ischemia [ ]c) Diabetic hyperosmolar state with obtundation or coma [ ]d) Diabetic ketoacidosis with ANY ONE of the following: [ ]i) Serum pH less than 7.10 or bicarbonate level less than 10 mEq/L (mmol/L) [ ]ii) Rapidly changing electrolytes [ ]iii) Hypotension [ ]iv) Requirement for large-volume fluid resuscitation [ ]v) Respiratory insufficiency [ ]vi) Life-threatening cardiac dysrhythmias [ ]vii) Obtundation [ ]viii) Severe precipitating condition such as sepsis, stroke, or acute AZ [ ]e) Severe hypoglycemia requiring continuous glucose infusion with frequent adjustment or glucagon infusion [ ]f) Hyperthyroidism associated with thyroid storm (also known as thyrotoxic crisis)(29) [ ]g) Myxedema with life-threatening neurologic, cardiovascular, electrolyte, or renal dysfunction(29) [ ]h) Diabetes insipidus that cannot be controlled with routine medication (30) [ ]X. Gastroenterology diagnoses or procedures, including ANY ONE of the following: [ ]a) Esophageal perforation(31) [ ]b) Severe caustic esophageal injury(31) [ ]c) Liver disease complications with ANY ONE of the following(32): [ ]i) Severe hepatic encephalopathy (eg, stage 3 (somnolent) or higher) [ ]ii) Type 1 hepatorenal syndrome [ ]iii) Other cirrhosis-associated causes of acute renal failure ( eg, severe hypovolemia, acute tubular necrosis, abdominal compartment syndrome) [ ]iv) Hemodynamic instability [ ]v) Respiratory insufficiency due to severe ascites [ ]vi) Sepsis due to spontaneous bacterial peritonitis [ ]d) Fulminant hepatic failure when aggressive intervention or transplant is anticipated (32) [ ]e) Gastrointestinal hemorrhage (upper or lower) with ANY ONE of the following(33)(34): [ ]i) Active ongoing bleeding [ ]ii) Transfusion requirement greater than 2 units of packed red cells [ ]iii) Bleeding ulcer or nonbleeding visible vessel seen on endoscopy [ ]iv) Bleeding ulcer, visible blood vessel, bleeding (or recently bleeding) esophageal varices seen on endoscopy [ ]v) Hypotension [ ]vi) Syncope [ ]vii) Coagulopathy [ ]viii) Hepatic cirrhosis [ ]ix) Abnormal mental status [ ]x) Unstable comorbid condition or end organ dysfunction [ ]xi) Ischemia due to poor perfusion [ ]xii) Need for hemodynamic monitoring (eg, for patients with heart failure or valvular disease) [ ]f) Severe pancreatitis indicated by ANY ONE of the following (35)(36): [ ]i) Requirement for aggressive fluid resuscitation [ ]ii) Life-threatening electrolyte abnormality [ ]iii) SBP less than 90 mm Hg [ ]iv) Persistent tachycardia greater than 120 beats per minute [ ]v) Patients at high risk of rapid deterioration, including ANY ONE of the following: [ ]1) Calculated [place] II score greater than 8 [ ]2) Age older than 55 years [ ]3) BMI greater than 30 [ ]4) Greater than 30% pancreatic necrosis on CT scan [ ]5) Admission hematocrit greater than 47% (0.47) [ ]vi) Organ failure as indicated by ANY ONE of the following: [ ]1) Serum creatinine greater than 1.9 mg/dL (168 micromoles/L) [ ]2) Requirement for mechanical ventilation [ ]3) Urine output less than 50 mL/hour [ ]4) Arterial partial pressure of oxygen less than 60 mm Hg (8.0 kPa) despite supplemental oxygen [ ]5) PiO2/FiO2 ratio less than 300 [ ]vii) Expanding pseudocyst [ ]viii) Infected pancreas [ ]ix) Pleural effusion [ ]x) Encephalopathy [ ]xi) Severe comorbidities [ ]XI. General Surgery diagnoses or procedures, including ANY ONE of the following (9)(24)(37): [ ]a) Acute abdominal catastrophe (eg, ischemic bowel, perforated viscus, abdominal compartment syndrome) [ ]b) Complications of any surgery requiring ICU intervention as indicated by ANY ONE of the following: [ ]i) Hemodynamic instability [ ]ii) [place] with complications (eg, severe arrhythmia, hypotension) [ ]iii) Excessive bleeding or severe coagulopathy [ ]iv) Respiratory failure [ ]v) Renal failure [ ]vi) Airway instability or obstruction [ ]vii) Neurologic deterioration [ ]viii) Infection with likelihood of sepsis syndrome or significant fluid shifts [ ]c) Multiple trauma with complicating features as indicated by ANY ONE of the following(38): [ ]i) Impending acute respiratory failure due to lung contusion, unstable chest wall, aspiration, or hemorrhage [ ]ii) Facial or neck injury threatening airway patency [ ]iii) Cardiac contusion [ ]iv) Pericardial effusion [ ]v) Bronchial tear [ ]vi) Hemodynamic instability [ ]vii) Rhabdomyolisis requiring large volume IV fluid resuscitation [ ]viii)Other significant complicating feature [ ]d) Organ transplant(39)(40) [ ]e) Esophagectomy(31) [ ]f) Whipple procedure [ ]g) Preoperative or postoperative patients requiring ICU intervention, such as hemodynamic optimization, pulmonary artery monitoring, mechanical ventilation, or extensive nursing care [ ]h) Obesity surgery patients with ANY ONE of the following(41): [ ]i) ICU management needs for comorbid conditions, such as sleep apnea or airway management needs [ ]ii) Failed postoperative extubation [ ]iii) Intraoperative complications [ ]XII. Nephrology diagnoses or procedures, including acute, or acute on chronic renal insufficiency with ANY ONE of the following(44)(45): [ ]a) Life-threatening electrolyte or acid-base disorder [ ]b) Acute pulmonary edema [ ]c) Hypotension or significant volume depletion [ ]d) Hypertensive emergency [ ]e) Underlying critical illness contributing to renal failure (eg, septic shock, hepatorenal syndrome) [ ]f) Need for continuous renal replacement therapy [ ]XIII. Neurology diagnoses or procedures, including ANY ONE of the following (46)(47) [B] : [ ]a) Intracranial hypertension requiring ANY ONE of the following(49 ): [ ]i) Induced barbiturate coma [ ]ii) Pharmacologic paralysis or deep sedation and mechanical ventilation [ ]iii) Intracranial pressure or cerebral perfusion pressure monitoring [ ]iv) IV mannitol or hypertonic saline [ ]v) Frequent serum osmolality measurements [ ]b) Seizures with ANY ONE of the following(50): [ ]i) Status epilepticus [ ]ii) Airway compromise requiring or likely to require mechanical ventilation [ ]iii) Severe electrolyte abnormalities causing seizures [ ]c) Progressive acute neurologic dysfunction requiring or likely to require ANY ONE of the following: [ ]i) Mechanical ventilation [ ]ii) Intracranial pressure or cerebral perfusion pressure monitoring [ ]d) Meningitis with obtundation or respiratory insufficiency [C])(51 ) [ ]e) Stroke with ANY ONE of the following(52)(53): [ ]i) Need for observation after thrombolysis [ ]ii) Altered mental status [ ]iii) Need for mechanical ventilation [ ]iv) Elevated intracranial pressure [ ]v) Hypertensive emergency [ ]vi) High risk of progressive infarction or deterioration based on CT scan or MRI [ ]vii) Hemorrhage [ ]f) Acute coma [ ]g) Acute spontaneous intracranial hemorrhage(53)(54) [ ]h) Drug ingestion with ANY ONE of the following(56)(57): [ ]i) Hemodynamic instability [ ]ii) Respiratory depression (partial pressure of carbon dioxide >45 mm Hg (6.0 kPa), new) [ ]iii) Patient requires or is likely to require mechanical ventilation. [ ]iv) Arrhythmias [ ]v) Seizures [ ]vi) Altered mental status ([place] coma scale score less than 12, new) [ ]vii) Significant risk for acute deterioration (eg, toxic level of hypotension or arrhythmia-producing drug) [ ]viii) Drug-induced hypothermia or hyperthermia [ ]ix) Increasing metabolic acidosis [ ]x) Severe hypoglycemia requiring glucose infusion with frequent adjustment or glucagon administration [ ]xi) Ongoing antidote administration (eg, continuous naloxone infusion, organophosphate toxicity treatment) [ ]xii) Emergency intervention need (eg, dialysis, hemoperfusion, restraints) [ ]i) Brain with preparation for organ donation [ ]j) Traumatic brain injury with ANY ONE of the following(55): [ ]i) Altered mental status (eg, new onset Jeremias coma scale score less than 10) [ ]ii) Cerebral edema [ ]iii) Cerebral hemorrhage [ ]iv) Increased intracranial pressure [ ]XIV. Neurosurgery diagnoses or procedures, including ANY ONE of the following(49)(58)(59): [ ]a) Emergency craniotomy for tumor, hematoma, or trauma [ ]b) Elective craniotomy for posterior fossa tumor [ ]c) Elective craniotomy (supratentorial) for tumor with ANY ONE of the following: [ ]i) Postoperative neurologic deficit or impaired consciousness 6 hours after completion of procedure [ ]ii) SBP less than 110 mm Hg or greater than 180 mm Hg despite therapy [ ]iii) Extensive operative blood loss [ ]iv) High anesthesia risk (eg, [place] [employer] anesthesi[employer] score greater than 3 [ ]d) Craniotomy for aneurysm with ANY ONE of the following: [ ]i) Postoperative neurologic deficit or impaired consciousness 6 hours after completion of procedure [ ]ii) Preoperative Lopez-Arguelles grade 3 or higher [ ]iii) SBP less than 110 mm Hg or greater than 180 mm Hg despite therapy [ ]iv) Intracranial pressure monitoring [ ]e) Acute spinal cord injury [ ]f) Subarachnoid hemorrhage [ ]g) Traumatic brain injury with ANY ONE of the following: [ ]i) Acute mental status change (Jeremias coma scale score less than 10) [ ]ii) CT scan showing cerebral edema or hemorrhage [ ]iii) Intracranial pressure monitoring [ ]h) Complications of any surgery requiring ICU intervention as indicated by ANY ONE of the following(60): [ ]i) Hemodynamic instability [ ]ii) [place] with complications (eg, severe arrhythmia, hypotension) [ ]iii) Excessive bleeding or severe coagulopathy [ ]iv) Respiratory failure [ ] v) Renal failure [ ]vi) Airway instability or obstruction [ ]vii) Neurologic deterioration [ ]viii) Infection with likelihood of sepsis syndrome or significant fluid shifts [ ]i) Preoperative or postoperative patients requiring ICU intervention, such as hemodynamic optimization, pulmonary artery monitoring, mechanical ventilation, or extensive nursing care [ ]XV.Obstetrics and Gynecology diagnoses or procedures, including ANY ONE of the ffg. (61)(62)(63): [ ]a) Severe peripartum condition as indicated by ANY ONE of the following: [ ]i) Eclampsia [ ]ii) Hypertensive emergency [ ]iii) HELLP syndrome (hemolysis, elevated liver enzymes, and low platelet count) [ ]iv) Pulmonary edema [ ]v) Respiratory failure [ ]vi) Pulmonary embolism [ ]vii) Anaphylactoid syndrome of (amniotic fluid embolus) [ ]viii) Ovarian hyperstimulation syndrome [D] [ ]ix) Acute fatty liver of (hepatic failure) [ ]x) Complications such as placental abruption or severe hemorrhage [ ]xi) Sepsis (eg, puerperal sepsis, chorioamnionitis, septic ) [ ]xii) cardiomyopathy with severe congestive heart failure (eg, respiratory failure, cardiogenic shock) [ ]b) Ruptured ectopic [ ]c) Complications of any surgery requiring ICU intervention as indicated by ANY ONE of the following: [ ]i) Hemodynamic instability [ ]ii) [place] with complications (eg, severe arrhythmia, hypotension) [ ]iii) Excessive bleeding or severe coagulopathy [ ]iv) Respiratory failure [ ]v) Renal failure [ ]vi) Airway instability or obstruction [ ]vii) Neurologic deterioration [ ]viii) Infection with likelihood of sepsis syndrome or significant fluid shifts [ ]d) Preoperative or postoperative patients requiring ICU intervention , such as hemodynamic optimization, pulmonary artery monitoring, mechanical ventilation, or extensive nursing care [ ]XVI.Ophthalmology diagnoses or procedures, including ANY ONE of the following (64): [ ]a) Complications of any surgery requiring ICU intervention, such as ANY ONE of the following: [ ]i) Hemodynamic instability [ ]ii) [place] with complications (eg, severe arrhythmia, hypotension) [ ]iii) Excessive bleeding or severe coagulopathy [ ]iv) Respiratory failure [ ]v) Renal failure [ ]vi) Airway instability or obstruction [ ]vii) Neurologic deterioration [ ]viii) Infection with likelihood of sepsis syndrome or significant fluid shifts [ ]b) Preoperative or postoperative patients requiring ICU intervention , such as hemodynamic optimization, pulmonary artery monitoring, mechanical ventilation, or extensive nursing care [ ]XVII.Orthopedics diagnoses or procedures, including ANY ONE of the following [phone]): [ ]a) Complications of any surgery requiring ICU intervention as indicated by ANY ONE of the following: [ ]i) Hemodynamic instability [ ]ii) [place] with complications (eg, severe arrhythmia, hypotension) [ ]iii) Excessive bleeding or severe coagulopathy [ ]iv) Respiratory failure [ ]v) Renal failure [ ]vi) Airway instability or obstruction [ ] vii) Neurologic deterioration [ ]viii) Infection with likelihood of sepsis syndrome or significant fluid shifts [ ]b) Multiple trauma with complicating features as indicated by ANY ONE of the following(38): [ ]i) Impending acute respiratory failure due to lung contusion, unstable chest wall, pneumothorax, aspiration, or hemorrhage [ ]ii) Facial or neck injury threatening airway patency [ ]iii) Cardiac contusion [ ]iv) Rhabdomyolysis requiring large volume IV fluid resuscitation [ ]v) Pericardial effusion [ ]vi) Bronchial tear [ ]vii) Hemodynamic instability [ ]viii) Other significant complicating feature [ ]c) Threatened compartment syndrome [ ]d) Severe clark with ANY ONE of the following(68)(69)(70): [ ]i) Hypotension or requirement for aggressive fluid resuscitation [ ]ii) Respiratory insufficiency with requirement for high- flow oxygen or mechanical ventilation [ ]iii) Carbon monoxide poisoning [ ]iv) Life-threatening cardiac, renal, pulmonary, or neurologic dysfunction [ ]v) High-voltage (eg, 1000 volts or more) electrical burn [ ]vi) Requirement for frequent or intensive debridement and dressing changes; examples include: [ ]1) Partial thickness clark greater than 10% of body surface [ ]2) Clark on face, hands, feet, genitalia, perineum , or major joints [ ]3) Third-degree clark [ ]4) Any burn greater than 15% of body surface area [ ]vii) Inhalation lung injury [ ]viii) Concomitant trauma or other medical condition requiring ICU care [ ]e) Preoperative or postoperative patients requiring ICU intervention , such as hemodynamic optimization, pulmonary artery monitoring, mechanical ventilation, or extensive nursing care [ ]XVIII.Otolaryngology diagnoses or procedures, including ANY ONE of the following (71)(72): [ ]a) Complications of any surgery requiring ICU intervention as indicated by ANY ONE of the following: [ ]i) Hemodynamic instability [ ]ii) [place] with complications (eg, severe arrhythmia, hypotension) [ ]iii) Excessive bleeding or severe coagulopathy [ ]iv) Respiratory failure [ ]v) Renal failure [ ]vi) Airway instability or obstruction [ ]vii) Neurologic deterioration [ ]viii) Infection with likelihood of sepsis syndrome or significant fluid shifts [ ]b) Airway or hemodynamic compromise that persists after 3 hours of observation in postanesthesia care unit following nasal, palate (eg, uvulopalatopharyngoplasty or palatoplasty), or tongue surgery for sleep apnea [ ]c) Preoperative or postoperative patient requiring ICU intervention, such as hemodynamic optimization, pulmonary artery monitoring, mechanical ventilation, or extensive nursing care [ ]d) Symptomatic upper airway compromise (eg, laryngeal edema, mass) [ ]e) Other airway-compromising procedure (eg, posterior nasal packing) [ ]XIX.Thoracic Surgery and Pulmonary Disease Diagnosis or procedures, including ANY ONE of the following(6): [ ]a) Asthma with ANY ONE of the following(73)(74): [ ]i) Impending or actual respiratory arrest [ ]ii) Need for mechanical ventilation [ ]iii) Peak expiratory flow rate less than 30% of predicted or personal best [ ]iv) Peak expiratory flow rate or FEV1 less than 40% predicted after 1 hour of initial treatment [ ]v) Acidosis [ ]vi) Persistent or worsening hypoxia after initial treatment [ ]vii) Hypercapnia (eg, partial pressure of carbon dioxide greater than 43 mm Hg (5.7 kPa)) [ ]viii) Severe drowsiness, confusion, or coma [ ]ix) Requiring continuous inhaled bronchodilator [ ]b) COPD with ANY ONE of the following(75): [ ]i) Need for assisted ventilation [ ]ii) Hemodynamic instability [ ]iii) Severe dyspnea unresponsive to initial treatment [ ]iv) Change in level of consciousness [ ]v) Persistent findings despite oxygen and outpatient management, including ANY ONE of the following: [ ]1) Partial pressure of oxygen less than 40 mm Hg ( 5.3 kPa) [ ]2) Partial pressure of carbon dioxide greater than 60 mm Hg (8.0 kPa) [ ]3) pH less than 7.25 [ ]4) Worsening hypoxemia or acidosis [ ]c) Cor pulmonale with ANY ONE of the following(75)(76)(77): [ ]i) Hemodynamic instability [ ]ii) Need for IV inotropic or vasoactive agent [ ]iii) Need for invasive hemodynamic monitoring (eg, central venous, pulmonary artery, or arterial catheter) [ ]iv) Hypoxemia with partial pressure of oxygen less than 40 mm Hg (5.3 kPa) [ ]v) Worsening hypoxemia or acidosis despite oxygen therapy [ ]vi) Need for assisted ventilation [ ]vii) Need for right ventricular assist device [ ]viii) Unstable atrial tachyarrhythmia [ ]ix) Need for inhaled nitric oxide [ ]d) Aspiration pneumonia with ANY ONE of the following(78): [ ]i) Acute respiratory distress syndrome (PaO2/FiO2 ratio of 300 or less) [ ]ii) Impending or actual respiratory arrest [ ]iii) Need for invasive or noninvasive mechanical ventilation [ ]e) Pneumocystis jiroveci pneumonia with ANY ONE of the following(79): [ ]i) Impending or actual respiratory arrest [ ]ii) Hypoxia (eg, PO260 mmGh (8.0 kPa) or less despite oxygen therapy) [ ]iii) Need for invasive or noninvasive mechanical ventilation [ ]f) Pneumonia with ANY ONE of the following(80)(81)(82): [ ]i) Need for invasive or noninvasive assisted ventilation [ ]ii) Hemodynamic instability [ ]iii) Severity factors as indicated by 3 or MORE of the following: [ ]1) Respiratory rate 30 breaths per minute or greater [ ]2) PaO2/FiO2 ratio of 250 or less [ ]3) Multilobed infiltrates [ ]4) Altered mental status [ ]5) BUN 20 mg/dL (7.1 mmol/L) or greater [ ]6) WBC count less than 4000/mm3 (4 x109/L) [ ]7) Platelet count <100,000/mm3 (100 x109/L) [ ]8) Temperature less than 36 degrees C (96.8 degrees F ) [ ]9) Hypotension requiring aggressive fluid resuscitation [ ]g) Pulmonary hypertension requiring initiation of parenteral pulmonary vasodilator or trial of inhaled nitric oxide (eg, need for right heart catheterization)(76) [ ]h) Impending respiratory failure as indicated by ANY ONE of the following: [ ]i) Respiratory rate greater than 30 or partial pressure of oxygen less than 60 mm Hg (8.0 kPa) on 50% oxygen or more [ ]ii) Partial pressure of carbon dioxide greater than 45 mm Hg (6.0 kPa) with pH less than 7.35 [ ]i) Respiratory failure with ANY ONE of the following (47): [ ]i) Need for invasive or noninvasive mechanical ventilation [ ]ii) High likelihood of requiring mechanical ventilation within 24 hours [ ]iii) Observation in the first several hours immediately after extubation from mechanical ventilation [ ]iv) Need for close observation and aggressive therapy, such as suctioning, chest physiotherapy, or inhalation treatments at intervals less than 1 hour [ ]v) Pharmacologic ventilatory paralysis [ ]j) Venous thromboembolism with need for systemic or catheter- directed thrombolysis (eg, for limb-threatening thrombosis, phlegmasia cerulea dolens) (83) [ ]k) Pulmonary embolus with ANY ONE of the following(83): [ ]i) Hypotension [ ]ii) Severe hypoxia [ ]iii) Dangerous arrhythmia [ ]iv) Bleeding [ ]v) Need for systemic or catheter-directed thrombolysis [ ]l) Lobectomy or other major thoracic surgery [ ]m) Lung transplant [ ]n) Symptomatic upper airway obstruction (eg, laryngeal edema, mass) [ ]o) Massive hemoptysis [ ]p) Infection or thrombosis of an intravenous device with ANY ONE of the following(6)(84): [ ]i) Hemodynamic instability [ ]ii) Requirement for frequent hemodynamic measurements [ ]iii) Shock [ ]iv) End organ dysfunction [ ] v) Acute renal failure due to missed dialysis [ ]vi) Unstable acute complication (eg, pericardial tamponade , tension pneumothorax) [ ]q) Traumatic rib fracture or fractures with ANY ONE of the following(85): [ ]i) Injury severity score of 19 or greater [ ]ii) Respiratory insufficiency [ ]iii) Flail chest [ ]iv) Sternum fracture [ ]v) Vascular injury (eg, heart or great vessels) [ ]r) Pleural effusion with ANY ONE of the following(86): [ ]i) Respiratory insufficiency [ ]ii) Hemothorax with active ongoing bleeding [ ]iii) Hemodynamic instability [ ]iv) Unstable comorbid condition (eg, sepsis or heart failure [ ]XX. Urology diagnoses or procedures, including ANY ONE of the following ( 87)(88): [ ]a) Renal transplant [ ]b) Complications of any surgery requiring ICU intervention as indicated by ANY ONE of the following: [ ]i) Hemodynamic instability [ ]ii) [place] with complications (eg, severe arrhythmia, hypotension) [ ]iii) Excessive bleeding or severe coagulopathy [ ]iv) Respiratory failure [ ]v) Renal failure [ ]vi) Airway instability or obstruction [ ]vii) Neurologic deterioration [ ]viii) Infection with likelihood of sepsis syndrome or significant fluid shifts [ ]c) Preoperative or postoperative patients requiring ICU intervention , such as hemodynamic optimization, pulmonary artery monitoring, mechanical ventilation , or extensive nursing care [ ]XXI.Infectious Disease diagnoses or procedures, with ANY ONE of the following (6)(43): [ ]a) Hemodynamic instability [ ]b) Shock [ ]c) Requirement for frequent hemodynamic measurements (eg, arterial catheter, pulmonary artery catheter) [ ]d) Sepsis or suspected sepsis with end organ dysfunction (eg, acute kidney injury, acute respiratory distress syndrome) [ ]e) Necrotizing soft tissue infection [ ] XXII.Hematology - Oncology diagnoses or procedures, including chemotherapy administration with ANY ONE of the following(42): [ ]a) Hemodynamic instability [ ]b) Tumor lysis syndrome with ANY ONE of the following : [ ]1) Acute kidney injury [ ]2) Severe electrolyte abnormality [ ]3) Cardiac dysrhythmia [ ]XXIII. Systemic conditions, including ANY ONE of the following: [ ]a) Severe electrolyte or metabolic disturbance causing or likely to cause ANY ONE of the following(10)(89)(90): [ ]i) Life-threatening cardiac dysrhythmia [ ]ii) Respiratory insufficiency [ ]iii) Altered mental status [ ]iv) Seizures [ ]v) Hemodynamic instability [ ]vi) Muscular weakness [ ]b) Environmental injuries such as hypothermia, hyperthermia, electrical injuries, or near drowning(70)(91)(92) The original [facility] content created by [employer] has been revised. The portions of the content which have been revised are identified through the use of italic text or in bold, and [facility] has neither reviewed nor approved the modified material. All other unmodified content is copyright [facility]. Please see references footnoted in the original [facility] edition 2016 Admission Criteria Met?: Yes LIBORIO VALENTINO October 22, 2016 09:50
[2016-10-22] MEDS ORDERED: NOREPINEPHRIN PREMIX 250 ML IV ONE (11:03)
[2016-10-22] MEDS ORDERED: NOREPINEPHRIN PREMIX 250 ML IV PRN (11:15)
[2016-10-22] MEDS ORDERED: PIP/TAZO PER PHARMACY MC PRN (11:30)
[2016-10-22] MEDS ORDERED: VANCOMYCIN 2 GM in IV NORMAL SALINE 500ML BAG 500 ML IV ONE (11:30)
--- NOTE | 2016-10-22 11:42 | PDOC2 ---
GI CONSULT Reason For Consult: GI Bleed HPI: HPI: 61 y/o male w/ extensive PMH as below, on Warfarin and ASA (h/o A Fib and PE), evaluated in the ER for dark stools and dark emesis. He has been "feeling lousy " for awhile (doesn't really elaborate) and has been taking Advil (although has no specific pain). Has a h/o GERD, takes OTC Prilosec PRN. Additional h/o gastroparesis, takes metoclopramide 10mg QID. Also sometimes has diarrhea, takes Lomotil PRN. Has been on and off antibiotics for foot wound/infection, most recently Bactrim which was stopped because it "tore up his stomach." Has noted some darker stools for a few days; this was worse and associated w/ black emesis yesterday evening. In the ER, Hgb 6.6 w/ elevated RDW, INR 3.7, lactic acid 4.4, elevated troponin (0.218), Cr 6.4 (ESRD on HD), BUN 95, hemoccult positive. Last Hgb here in 12/2015 in 9-10 range. Noted w/ fever (max 101.3) and hypotension. CT A/P w/ ascites, gallbladder sludge vs stones, anasarca, and small kidneys. Admitted to ICU on octreotide and PPI drips, along w/ norepinephrine. Has transfused 1 unit pRBCs with another 2 planned during dialysis later as d/w Dr. Donovan. Cardiology consult pending. Reviewed [facility] records. For n/v in 2013, had an EGD by Dr. Wayne which showed mild esophagitis and retained food. Screening colonoscopy that year showed diverticulosis and hemorrhoids. Had PEG tube placed and removed in 2014 for dysphagia post-code. Hiatal hernia and gastritis also noted. Has h/o ascites, doesn't feel more bloated than normal. No h/o liver disease or GI bleeding. PMH: PMH: IDDM, CHF, ESRD on HD, A Fib, HTN, HLD, PE, PVD, NASH, pulmonary hypertension, anemia, hyperparathyroidism, osteomyelitis, depression/anxiety, left hip fracture, tonsillectomy, LE I&Ds, right BKA, left great toe amputation, AV fistula, left hip nailing, bronchoscopy FH: Family History: No pertinent hx Social History: ALCOHOL: none Drugs: None ROS: GEN: +fatigue, "feeling lousy" HEENT: Denies blurred vision, sore throat CV: Denies chest pain RESP: Denies shortness of air, cough GI: Per HPI : Denies hematuria, dysuria ENDO: +fluctuating weight NEURO: Denies confusion, dizziness MSK: Denies weakness, joint pain/swelling SKIN: Denies jaundice, pruritus Vitals: Vitals: Vital Signs Date Time Temp Pulse Resp B/P (MAP) Pulse Ox O2 Delivery O2 Flow Rate FiO2 10/22/16 11:00 66 16 70/38 (49) 97 Nasal Cannula 3.0 10/22/16 10:45 101.3 101.3 Labs: Labs: Laboratory Tests Test 10/22/16 06:10 10/22/16 07:00 Stool Occult Blood Positive (NEG) White Blood Count 21.5 x10^3/uL (4.0-11.0) Red Blood Count 2.22 x10^6/uL (4.30-5.70) Hemoglobin 6.6 g/dL (13.0-17.5) Hematocrit 20.4 % (39.0-53.0) Mean Corpuscular Volume 92 fL (79-100) Mean Corpuscular Hemoglobin 30 pg (25-35) Mean Corpuscular Hemoglobin Concent 32 g/dL (31-37) Red Cell Distribution Width 16.9 % (11.5-14.5) Platelet Count 316 x10^3/uL (140-400) Neutrophils (%) (Auto) 95 % (31-73) Lymphocytes (%) (Auto) 2 % (24-48) Monocytes (%) (Auto) 3 % (0-9) Eosinophils (%) (Auto) 0 % (0-3) Basophils (%) (Auto) 0 % (0-3) Neutrophils # (Auto) 20.4 x10^3uL (1.8-7.7) Lymphocytes # (Auto) 0.3 x10^3/uL (1.0-4.8) Monocytes # (Auto) 0.7 x10^3/uL (0.0-1.1) Eosinophils # (Auto) 0.0 x10^3/uL (0.0-0.7) Basophils # (Auto) 0.1 x10^3/uL (0.0-0.2) Segmented Neutrophils % 70 % (35-66) Band Neutrophils % 23 % (0-9) Lymphocytes % 3 % (24-48) Monocytes % 4 % (0-10) Toxic Granulation Slight Platelet Estimate Adequate (ADEQUATE) Hypochromasia Slight Poikilocytosis Slight Anisocytosis Slight Prothrombin Time 34.2 SEC (11.7-14.0) Prothromb Time International Ratio 3.7 (0.8-1.1) Activated Partial Thromboplast Time 41 SEC (24-38) Sodium Level 133 mmol/L (136-145) Potassium Level 4.6 mmol/L (3.5-5.1) Chloride Level 92 mmol/L (98-107) Carbon Dioxide Level 19 mmol/L (21-32) Anion Gap 22 (6-14) Blood Urea Nitrogen 95 mg/dL (8-26) Creatinine 6.4 mg/dL (0.7-1.3) Estimated GFR (Cockcroft-Gault) 9.0 BUN/Creatinine Ratio 15 (6-20) Glucose Level 208 mg/dL (70-99) Lactic Acid Level 4.4 mmol/L (0.4-2.0) Calcium Level 8.5 mg/dL (8.5-10.1) Total Bilirubin 0.6 mg/dL (0.2-1.0) Aspartate Amino Transf (AST/SGOT) 23 U/L (15-37) Alanine Aminotransferase (ALT/SGPT) 28 U/L (16-63) Alkaline Phosphatase 126 U/L (46-116) Troponin I Quantitative 0.218 ng/mL (0.000-0.055) Total Protein 7.2 g/dL (6.4-8.2) Albumin 3.3 g/dL (3.4-5.0) Albumin/Globulin Ratio 0.8 (1.0-1.7) Allergies: Coded Allergies: I S O L A T I O N *CONTACT* (Verified Allergy, Unknown, 08/02/15) mrsa + No Known Medication Allergies (Verified Allergy, Unknown, 08/02/15) Medications: Current Medications Medications (Trade) Dose Ordered Sig/Nanette Route PRN Reason Start Time Stop Time Status Last Admin Dose Admin Pantoprazole Sodium 80 mg/ Sodium Chloride 100 ml @ 10 mls/hr Q10H IV 10/22/16 07:00 10/22/16 06:56 Pantoprazole Sodium (Protonix Vial) 80 mg 1X ONCE IVP 10/22/16 07:00 10/22/16 07:01 DC 10/22/16 06:52 Octreotide Acetate 500 mcg/ Sodium Chloride 101 ml @ 0 mls/hr CONT PRN IV SEE I/O RECORD 10/22/16 07:00 10/22/16 06:55 Octreotide Acetate (SandoSTATIN) 100 mcg 1X ONCE IV 10/22/16 07:00 10/22/16 07:01 DC 10/22/16 06:52 Metoclopramide HCl (Reglan) 10 mg 1X ONCE IV 10/22/16 07:00 10/22/16 07:01 DC 10/22/16 06:51 Ondansetron HCl (Zofran) 4 mg 1X ONCE IV 10/22/16 07:00 10/22/16 07:01 DC 10/22/16 06:51 Iohexol (Omnipaque 350 Mg/ml) 90 ml 1X ONCE IV 10/22/16 07:00 10/22/16 07:01 DC 10/22/16 07:34 Phytonadione (Mephyton) 10 mg 1X ONCE PO 10/22/16 09:15 10/22/16 09:16 DC 10/22/16 09:18 Norepinephrine Bitartrate 250 ml @ 0 mls/hr CONT PRN IV SEE I/O RECORD 10/22/16 11:15 10/22/16 11:11 Imaging: Imaging: CXR 10/22/16 IMPRESSION: Unchanged cardiomegaly. No acute or focal process. No significant change. CT A/P 10/22/16 IMPRESSION: Very limited study evaluating for GI bleeding. Gross GI bleeding is not seen. Abdominal ascites. Sludge versus small stones in the gallbladder. Generalized soft tissue swelling suggesting anasarca.Chronic musculoskeletal changes. Small kidneys. PE: GEN: a bit uncomfortable HEENT: atraumatic, PERRL LUNGS: clear anteriorly HEART: RRR ABD: some distention/ascites, soft, non-tender, BS+ EXTREMITY: RBKA SKIN: left heel w/ bandage NEURO/PSYCH: A & O 3 OTHER: sister, RN, Dr. Donovan present A/P: A/P: Anemia, coffee-ground emesis, dark/hemoccult positive stools Hypotension, fever, elevated troponin, lactic acidosis -in ICU on pressor ESRD on HD, h/o A Fib and PE on Warfarin and ASA, h/o ascites, h/o PVD w/ LE wounds -plans for additional transfusions during dialysis today -on octreotide and PPI drips -has been on/off atbx Acid reflux -occasional symptoms improved w/ OTC PPI PRN NSAID use -has been taking Advil daily for a few weeks H/o gastroparesis, h/o PEG tube placement (now removed) -retained food on EGD in 2013, takes metoclopramide 10mg QID CRC screen -up to date, colonoscopy in 2013 w/ diverticulosis and hemorrhoids -- Will review w/ Dr. Mcmullen. LOLY RODRIGEZ October 22, 2016 11:42
--- NOTE | 2016-10-22 11:46 | PDOC2 ---
CONSULT Date of Consult Date of Consult DATE: 10/22/16 TIME: 11:42 Reason for Consult Reason for Consult: ESRD Referring Physician Referring Physician: MITCH Identification/Chief Complaint Chief Complaint WEAKNESS AND ABD PAIN WITH BLOOD IN STOOL Source Source: Chart review, Patient History of Present Illness Reason for Visit: THIS IS A 61 YR OLD ADMITTED WITH ABD PAIN AND WEAKNESS. HE HAS BEEN HAVING DARK BLOOD IN HIS STOOL FOR SEVERAL DAYS. HE HAS A HIGH INR DUE TO COUMADIN USE. HE HAS ESRD AND IS ON OP HD ON TTS. HIS BP WAS LOW ON ADMIT AND HE IS NOTED TO HAVE SEVERE ANEMIA. LABS ARE OTHERWISE C/W ESRD Past Medical History Cardiovascular: CHF, HTN, Hyperlipidemia, Valve insufficiency, Pulmonary hypertension Pulmonary: Pulmonary embolus, Other GI: Constipation, Gastritis, Other Heme/Onc: Anemia NOS Renal/: Chronic renal failure Endocrine: Diabetes, Hyperparathyroidism Past Surgical History Past Surgical History: Tonsillectomy, Other Family History Family History: No Significant Social History ALCOHOL: none Drugs: None Lives: with Family Current Medications Current Medications Current Medications Fentanyl Citrate (Fentanyl 2ml Vial) 25 mcg PRN Q15MIN PRN IV PAIN GREATER THAN 3/10; Start 10/22/16 at 06:30; Stop 10/23/16 at 06:29 Pantoprazole Sodium 80 mg/ Sodium Chloride 100 ml @ 10 mls/hr Q10H IV Last administered on 10/22/16 06:56; Start 10/22/16 at 07:00 Pantoprazole Sodium (Protonix Vial) 80 mg 1X ONCE IVP Last administered on 06:52; Start 10/22/16 at 07:00; Stop 10/22/16 at 07:01; Status DC Octreotide Acetate 500 mcg/ Sodium Chloride 101 ml @ 0 mls/hr CONT PRN IV SEE I /O RECORD Last administered on 10/22/16 06:55; Start 10/22/16 at 07:00 Octreotide Acetate (SandoSTATIN) 100 mcg 1X ONCE IV Last administered on 06:52; Start 10/22/16 at 07:00; Stop 10/22/16 at 07:01; Status DC Metoclopramide HCl (Reglan) 10 mg 1X ONCE IV Last administered on 10/22/16 06 :51; Start 10/22/16 at 07:00; Stop 10/22/16 at 07:01; Status DC Ondansetron HCl (Zofran) 4 mg 1X ONCE IV Last administered on 10/22/16 06:51 ; Start 10/22/16 at 07:00; Stop 10/22/16 at 07:01; Status DC Iohexol (Omnipaque 300 Mg/ml) 75 ml 1X ONCE IV ; Start 10/22/16 at 07:00; Stop 10/22/16 at 07:01; Status DC Info (Do NOT chart on this entry -- for MONITORING) 1 each PRN DAILY PRN MC SEE COMMENTS; Start 10/22/16 at 06:45; Stop 10/24/16 at 06:44 Iohexol (Omnipaque 350 Mg/ml) 90 ml 1X ONCE IV Last administered on 10/22/16 07:34; Start 10/22/16 at 07:00; Stop 10/22/16 at 07:01; Status DC Info (Do NOT chart on this entry -- for MONITORING) 1 each PRN DAILY PRN MC SEE COMMENTS; Start 10/22/16 at 07:00; Stop 10/24/16 at 06:59 Furosemide (Lasix) 40 mg 1X PRN PRN IV blood transfusion; Start 10/22/16 at 07: 45; Stop 10/23/16 at 07:44 Phytonadione (Mephyton) 10 mg 1X ONCE PO Last administered on 10/22/16 09:18 ; Start 10/22/16 at 09:15; Stop 10/22/16 at 09:16; Status DC Fentanyl Citrate (Fentanyl 2ml Vial) 50 mcg PRN Q2HR PRN IV PAIN; Start at 09:45; Stop 10/23/16 at 09:44 Acetaminophen (Tylenol) 650 mg PRN Q4HRS PRN PO FEVER; Start 10/22/16 at 09:45 ; Stop 10/23/16 at 09:44 Insulin Aspart (NovoLOG) 0-5 UNITS TIDWMEALS SQ ; Start 10/22/16 at 12:00 Dextrose (Dextrose 50%-Water Syringe) 12.5 gm PRN Q15MIN PRN IV SEE COMMENTS; Start 10/22/16 at 09:45 Norepinephrine Bitartrate 250 ml @ As Directed STK-MED ONCE IV ; Start at 11:03; Stop 10/22/16 at 11:04; Status DC Norepinephrine Bitartrate 250 ml @ 0 mls/hr CONT PRN IV SEE I/O RECORD Last administered on 10/22/16t 11:11; Start 10/22/16 at 11:15 Vancomycin HCl 2 gm/Sodium Chloride 500 ml @ 250 mls/hr 1X ONCE IV ; Start at 11:30; Stop 10/22/16 at 13:29 Piperacillin Sod/ Tazobactam Sod 2.25 gm/Sodium Chloride 50 ml @ 100 mls/hr Q6HRS IV ; Start 10/22/16 at 12:00; Status UNV Piperacillin Sod/ Tazobactam Sod (Zosyn Per Pharmacy) 1 each PRN DAILY PRN MC SEE COMMENTS; Start 10/22/16 at 11:30 Insulin Aspart (NovoLOG) 0-7 UNITS TIDWMEALS SQ ; Start 10/22/16 at 12:00 Dextrose (Dextrose 50%-Water Syringe) 12.5 gm PRN Q15MIN PRN IV SEE COMMENTS; Start 10/22/16 at 11:45 Active Scripts Active Senna-Time S Tablet (Sennosides/Docusate Sodium) 1 Each Tablet 2 Tab PO PRN DAILY PRN Lidoderm (Lidocaine) 700 Mg Adh..patch 2 Patch TD DAILY Novolog Flexpen (Insulin Aspart) 300 Units/3 Ml Insuln.pen 0 Units SQ TIDWMEALS Roxicodone (Oxycodone HCl) 5 Mg Tablet 10 Mg PO PRN Q4HRS PRN Reglan (Metoclopramide Hcl) 5 Mg Tablet 5 Mg PO TIDACHC Alprazolam 0.25 Mg Tablet 1 Tab PO TID PRN PRN Reported Doxycycline Hyclate 100 Mg Tablet.dr 1 Tab PO BID Vitamin C (Ascorbic Acid) 500 Mg Tablet 500 Mg PO DAILY Protonix (Pantoprazole Sodium) 40 Mg Tablet.dr 40 Mg PO DAILY Ramipril 10 Mg Capsule 10 Mg PO DAILY Tums (Calcium Carbonate) 300 Mg Tab.chew 300 Mg PO TIDAC Warfarin Sodium 4 Mg Tablet 4 Mg PO DAILY Escitalopram Oxalate 10 Mg Tablet 1 Tab PO DAILY Carvedilol 3.125 Mg Tablet 1 Tab PO BID Aspir 81 (Aspirin) 81 Mg Tablet.dr 81 Mg PO HS Atorvastatin Calcium 20 Mg Tablet 20 Mg PO DAILY Allergies Allergies: Coded Allergies: I S O L A T I O N *CONTACT* (Verified Allergy, Unknown, 08/02/15) mrsa + No Known Medication Allergies (Verified Allergy, Unknown, 08/02/15) ROS General: YES: Fatigue, Malaise, Appetite PSYCHOLOGICAL ROS: YES: Anxiety Eyes: Yes Decreased vision HEENT: YES: Heacaches Respiratory: YES: Cough Gastrointestinal: Yes Nausea, Yes Abdominal Pain Genitourinary: YES Other (ANURIA) Musculoskeletal: Yes Muscular Weakness Skin: Yes Dry Skin Physical Exam General: Alert, Oriented X3, Cooperative, No acute distress HEENT: Atraumatic, PERRLA, EOMI Lungs: Normal air movement, Other (DECREASED AT BASES) Heart: Regular rate Abdomen: Normal bowel sounds, No tenderness Extremities: No clubbing, No cyanosis Skin: No rashes, No breakdown, No significant lesion Neuro: Normal speech Psych/Mental Status: Other (ANXIOUS AFFECT) MUSCULOSKELETAL: Other (LE AMP) Vitals VITALS Vital Signs Date Time Temp Pulse Resp B/P (MAP) Pulse Ox O2 Delivery O2 Flow Rate FiO2 10/22/16 11:00 66 16 70/38 (49) 97 Nasal Cannula 3.0 10/22/16 10:45 101.3 101.3 Labs Labs Laboratory Tests Test 10/22/16 06:10 10/22/16 07:00 Stool Occult Blood Positive (NEG) White Blood Count 21.5 x10^3/uL (4.0-11.0) Red Blood Count 2.22 x10^6/uL (4.30-5.70) Hemoglobin 6.6 g/dL (13.0-17.5) Hematocrit 20.4 % (39.0-53.0) Mean Corpuscular Volume 92 fL (79-100) Mean Corpuscular Hemoglobin 30 pg (25-35) Mean Corpuscular Hemoglobin Concent 32 g/dL (31-37) Red Cell Distribution Width 16.9 % (11.5-14.5) Platelet Count 316 x10^3/uL (140-400) Neutrophils (%) (Auto) 95 % (31-73) Lymphocytes (%) (Auto) 2 % (24-48) Monocytes (%) (Auto) 3 % (0-9) Eosinophils (%) (Auto) 0 % (0-3) Basophils (%) (Auto) 0 % (0-3) Neutrophils # (Auto) 20.4 x10^3uL (1.8-7.7) Lymphocytes # (Auto) 0.3 x10^3/uL (1.0-4.8) Monocytes # (Auto) 0.7 x10^3/uL (0.0-1.1) Eosinophils # (Auto) 0.0 x10^3/uL (0.0-0.7) Basophils # (Auto) 0.1 x10^3/uL (0.0-0.2) Segmented Neutrophils % 70 % (35-66) Band Neutrophils % 23 % (0-9) Lymphocytes % 3 % (24-48) Monocytes % 4 % (0-10) Toxic Granulation Slight Platelet Estimate Adequate (ADEQUATE) Hypochromasia Slight Poikilocytosis Slight Anisocytosis Slight Prothrombin Time 34.2 SEC (11.7-14.0) Prothromb Time International Ratio 3.7 (0.8-1.1) Activated Partial Thromboplast Time 41 SEC (24-38) Sodium Level 133 mmol/L (136-145) Potassium Level 4.6 mmol/L (3.5-5.1) Chloride Level 92 mmol/L (98-107) Carbon Dioxide Level 19 mmol/L (21-32) Anion Gap 22 (6-14) Blood Urea Nitrogen 95 mg/dL (8-26) Creatinine 6.4 mg/dL (0.7-1.3) Estimated GFR (Cockcroft-Gault) 9.0 BUN/Creatinine Ratio 15 (6-20) Glucose Level 208 mg/dL (70-99) Lactic Acid Level 4.4 mmol/L (0.4-2.0) Calcium Level 8.5 mg/dL (8.5-10.1) Total Bilirubin 0.6 mg/dL (0.2-1.0) Aspartate Amino Transf (AST/SGOT) 23 U/L (15-37) Alanine Aminotransferase (ALT/SGPT) 28 U/L (16-63) Alkaline Phosphatase 126 U/L (46-116) Troponin I Quantitative 0.218 ng/mL (0.000-0.055) Total Protein 7.2 g/dL (6.4-8.2) Albumin 3.3 g/dL (3.4-5.0) Albumin/Globulin Ratio 0.8 (1.0-1.7) Laboratory Tests Test 10/22/16 06:10 10/22/16 07:00 Stool Occult Blood Positive (NEG) White Blood Count 21.5 x10^3/uL (4.0-11.0) Red Blood Count 2.22 x10^6/uL (4.30-5.70) Hemoglobin 6.6 g/dL (13.0-17.5) Hematocrit 20.4 % (39.0-53.0) Mean Corpuscular Volume 92 fL (79-100) Mean Corpuscular Hemoglobin 30 pg (25-35) Mean Corpuscular Hemoglobin Concent 32 g/dL (31-37) Red Cell Distribution Width 16.9 % (11.5-14.5) Platelet Count 316 x10^3/uL (140-400) Neutrophils (%) (Auto) 95 % (31-73) Lymphocytes (%) (Auto) 2 % (24-48) Monocytes (%) (Auto) 3 % (0-9) Eosinophils (%) (Auto) 0 % (0-3) Basophils (%) (Auto) 0 % (0-3) Neutrophils # (Auto) 20.4 x10^3uL (1.8-7.7) Lymphocytes # (Auto) 0.3 x10^3/uL (1.0-4.8) Monocytes # (Auto) 0.7 x10^3/uL (0.0-1.1) Eosinophils # (Auto) 0.0 x10^3/uL (0.0-0.7) Basophils # (Auto) 0.1 x10^3/uL (0.0-0.2) Segmented Neutrophils % 70 % (35-66) Band Neutrophils % 23 % (0-9) Lymphocytes % 3 % (24-48) Monocytes % 4 % (0-10) Toxic Granulation Slight Platelet Estimate Adequate (ADEQUATE) Hypochromasia Slight Poikilocytosis Slight Anisocytosis Slight Prothrombin Time 34.2 SEC (11.7-14.0) Prothromb Time International Ratio 3.7 (0.8-1.1) Activated Partial Thromboplast Time 41 SEC (24-38) Sodium Level 133 mmol/L (136-145) Potassium Level 4.6 mmol/L (3.5-5.1) Chloride Level 92 mmol/L (98-107) Carbon Dioxide Level 19 mmol/L (21-32) Anion Gap 22 (6-14) Blood Urea Nitrogen 95 mg/dL (8-26) Creatinine 6.4 mg/dL (0.7-1.3) Estimated GFR (Cockcroft-Gault) 9.0 BUN/Creatinine Ratio 15 (6-20) Glucose Level 208 mg/dL (70-99) Lactic Acid Level 4.4 mmol/L (0.4-2.0) Calcium Level 8.5 mg/dL (8.5-10.1) Total Bilirubin 0.6 mg/dL (0.2-1.0) Aspartate Amino Transf (AST/SGOT) 23 U/L (15-37) Alanine Aminotransferase (ALT/SGPT) 28 U/L (16-63) Alkaline Phosphatase 126 U/L (46-116) Troponin I Quantitative 0.218 ng/mL (0.000-0.055) Total Protein 7.2 g/dL (6.4-8.2) Albumin 3.3 g/dL (3.4-5.0) Albumin/Globulin Ratio 0.8 (1.0-1.7) Assessment/Plan Assessment/Plan IMP ANEMIA GI BLEED COAGULOPATHY DM II HTN HX HYPOTENSION ESRD PLAN PRBC FFP ARANESP GI EVAL AND TX HD TODAY UF TO DW PRESSORS IF NEEDED DONNY LUEVANO MD October 22, 2016 11:46
[2016-10-22] MEDS: INSULIN ASPART 300 UNITS/3 ML INSULN.PEN SQ SCH ×4 (12:00→17:00)
[2016-10-22] MEDS ORDERED: DARBEPOETIN ALFA 60 MCG/0.3 ML DISP.SYRIN. SQ ONE (13:00)
[2016-10-22] MEDS ORDERED: IV NORMAL SALINE 1000ML BAG 1,000 ML IV PRN ×2 (15:04)
[2016-10-22] MEDS ORDERED: METO10TA81 PO (15:13)
[2016-10-22] MEDS ORDERED: DIPH1TAB PO (15:13)
[2016-10-22] MEDS ORDERED: SULF1TAB3 PO (15:13)
[2016-10-22] MEDS ORDERED: DIALYSIS PATIENT. MC PRN ×2 (15:15)
[2016-10-22] MEDS ORDERED: ALBUMIN HUMAN 25% 200 ML IV PRN (15:15)
[2016-10-22] MEDS ORDERED: PIOG45TA19 PO (15:20)
[2016-10-22] MEDS ORDERED: WARF2TAB7 PO (15:20)
[2016-10-22] MEDS ORDERED: ALPR1TAB6 PO (15:20)
[2016-10-22] MEDS ORDERED: HYDR-2666 PO (15:20)
[2016-10-22] MEDS ORDERED: FOLI0.8T21 PO (15:20)
[2016-10-22] MEDS: fentaNYL PF VIAL 100 MCG/2 ML VIAL IV PRN ×2 (17:24→20:52)
--- NOTE | 2016-10-22 17:36 | PDOC2 ---
CONSULT Date of Consult Date of Consult DATE: 10/22/16 TIME: 17:32 Reason for Consult Reason for Consult: Cardiac history Referring Physician Referring Physician: Dr. Araujo Identification/Chief Complaint Chief Complaint GI bleed History of Present Illness Reason for Visit: This patient is a 61-year-old gentleman with a long cardiac history that has chronic atrial fibrillation and valvular heart disease. He has disease of the aorta with aortic insufficiency and has had problems with CHF in the past and a cardiomyopathy with systolic dysfunction. He also has had previous pulmonary embolisms, peripheral vascular disease, diabetes and end- stage renal disease requiring dialysis. The patient comes in with a possible GI bleed. This is being worked up. I was asked to see him about his heart condition. Patient denies any cardiac complaints at this time. Past Medical History Cardiovascular: AFIB, CAD, CHF, HTN, Hyperlipidemia, Valve insufficiency, Pulmonary hypertension Pulmonary: Pulmonary embolus, Other GI: Constipation, Gastritis, Other Heme/Onc: Anemia NOS Renal/: Chronic renal failure Endocrine: Diabetes, Hyperparathyroidism Past Surgical History Past Surgical History: Tonsillectomy, Other Family History Family History: No Significant Social History ALCOHOL: none Drugs: None Lives: with Family Current Medications Current Medications Current Medications Fentanyl Citrate (Fentanyl 2ml Vial) 25 mcg PRN Q15MIN PRN IV PAIN GREATER THAN 3/10; Start 10/22/16 at 06:30; Stop 10/23/16 at 06:29 Pantoprazole Sodium 80 mg/ Sodium Chloride 100 ml @ 10 mls/hr Q10H IV Last administered on 10/22/16 06:56; Start 10/22/16 at 07:00 Pantoprazole Sodium (Protonix Vial) 80 mg 1X ONCE IVP Last administered on 06:52; Start 10/22/16 at 07:00; Stop 10/22/16 at 07:01; Status DC Octreotide Acetate 500 mcg/ Sodium Chloride 101 ml @ 0 mls/hr CONT PRN IV SEE I /O RECORD Last administered on 10/22/16 06:55; Start 10/22/16 at 07:00 Octreotide Acetate (SandoSTATIN) 100 mcg 1X ONCE IV Last administered on 06:52; Start 10/22/16 at 07:00; Stop 10/22/16 at 07:01; Status DC Metoclopramide HCl (Reglan) 10 mg 1X ONCE IV Last administered on 10/22/16 06 :51; Start 10/22/16 at 07:00; Stop 10/22/16 at 07:01; Status DC Ondansetron HCl (Zofran) 4 mg 1X ONCE IV Last administered on 10/22/16 06:51 ; Start 10/22/16 at 07:00; Stop 10/22/16 at 07:01; Status DC Iohexol (Omnipaque 300 Mg/ml) 75 ml 1X ONCE IV ; Start 10/22/16 at 07:00; Stop 10/22/16 at 07:01; Status DC Info (Do NOT chart on this entry -- for MONITORING) 1 each PRN DAILY PRN MC SEE COMMENTS; Start 10/22/16 at 06:45; Stop 10/24/16 at 06:44 Iohexol (Omnipaque 350 Mg/ml) 90 ml 1X ONCE IV Last administered on 10/22/16 07:34; Start 10/22/16 at 07:00; Stop 10/22/16 at 07:01; Status DC Info (Do NOT chart on this entry -- for MONITORING) 1 each PRN DAILY PRN MC SEE COMMENTS; Start 10/22/16 at 07:00; Stop 10/24/16 at 06:59 Furosemide (Lasix) 40 mg 1X PRN PRN IV blood transfusion; Start 10/22/16 at 07: 45; Stop 10/23/16 at 07:44 Phytonadione (Mephyton) 10 mg 1X ONCE PO Last administered on 10/22/16 09:18 ; Start 10/22/16 at 09:15; Stop 10/22/16 at 09:16; Status DC Fentanyl Citrate (Fentanyl 2ml Vial) 50 mcg PRN Q2HR PRN IV PAIN Last administered on 10/22/16 17:24; Start 10/22/16 at 09:45; Stop 10/23/16 at 09:44 Acetaminophen (Tylenol) 650 mg PRN Q4HRS PRN PO FEVER; Start 10/22/16 at 09:45 ; Stop 10/23/16 at 09:44 Insulin Aspart (NovoLOG) 0-5 UNITS TIDWMEALS SQ ; Start 10/22/16 at 12:00 Dextrose (Dextrose 50%-Water Syringe) 12.5 gm PRN Q15MIN PRN IV SEE COMMENTS; Start 10/22/16 at 09:45; Stop 10/22/16 at 12:42; Status DC Norepinephrine Bitartrate 250 ml @ As Directed STK-MED ONCE IV ; Start at 11:03; Stop 10/22/16 at 11:04; Status DC Norepinephrine Bitartrate 250 ml @ 0 mls/hr CONT PRN IV SEE I/O RECORD Last administered on 10/22/16 11:11; Start 10/22/16 at 11:15 Vancomycin HCl 2 gm/Sodium Chloride 500 ml @ 250 mls/hr 1X ONCE IV ; Start at 11:30; Stop 10/22/16 at 13:29; Status DC Piperacillin Sod/ Tazobactam Sod 2.25 gm/Sodium Chloride 50 ml @ 100 mls/hr Q8HRS IV ; Start 10/22/16 at 12:00 Piperacillin Sod/ Tazobactam Sod (Zosyn Per Pharmacy) 1 each PRN DAILY PRN MC SEE COMMENTS; Start 10/22/16 at 11:30 Insulin Aspart (NovoLOG) 0-7 UNITS TIDWMEALS SQ ; Start 10/22/16 at 12:00 Dextrose (Dextrose 50%-Water Syringe) 12.5 gm PRN Q15MIN PRN IV SEE COMMENTS; Start 10/22/16 at 11:45 Darbepoetin Noel (Aranesp) 60 mcg 1X ONCE SQ Last administered on 10/22/16 15 :48; Start 10/22/16 at 13:00; Stop 10/22/16 at 13:01; Status DC Sodium Chloride 1,000 ml @ 1,000 mls/hr Q1H PRN IV hypotension; Start 10/22/16 at 15:04; Stop 10/22/16 at 21:03 Albumin Human 200 ml @ 200 mls/hr 1X PRN PRN IV Hypotension; Start 10/22/16 at 15:15; Stop 10/22/16 at 21:14 Sodium Chloride 1,000 ml @ 400 mls/hr Q2H30M PRN IV PATENCY; Start 10/22/16 at 15:04; Stop 10/23/16 at 03:03 Info (PHARMACY MONITORING -- do not chart) 1 each PRN DAILY PRN MC SEE COMMENTS ; Start 10/22/16 at 15:15; Status UNV Info (PHARMACY MONITORING -- do not chart) 1 each PRN DAILY PRN MC SEE COMMENTS ; Start 10/22/16 at 15:15 Sodium Chloride 1,000 ml @ 30 mls/hr Q24H IV ; Start 10/23/16 at 11:30 Active Scripts Active Senna-Time S Tablet (Sennosides/Docusate Sodium) 1 Each Tablet 2 Tab PO PRN DAILY PRN Novolog Flexpen (Insulin Aspart) 300 Units/3 Ml Insuln.pen 0 Units SQ TIDWMEALS Reported Sapphire-Sara Tablet (Folic Acid/Vitamin B Comp W-C) 0.8 Mg Tablet 0.8 Mg PO Alprazolam 1 Mg Tablet 1 Tab PO TID Hydrocodone-Apap 5-325 (Hydrocodone Bit/Acetaminophen) 1 Each Tablet 1 Tab PO PRN Q8HRS PRN Warfarin Sodium 2 Mg Tablet 1 Tab PO DAILY Actos (Pioglitazone Hcl) 45 Mg Tablet 1 Tab PO DAILY Reglan (Metoclopramide Hcl) 10 Mg Tablet 10 Mg PO QIDACHS Lomotil Tablet (Diphenoxylate Hcl/Atropine) 1 Each Tablet 1 Tab PO QID PRN Sulfamethoxazole-Tmp Ds Tablet (Sulfamethoxazole/Trimethoprim) 1 Each Tablet 1 Tab PO BID Ramipril 10 Mg Capsule 5 Mg PO DAILY Tums (Calcium Carbonate) 300 Mg Tab.chew 300 Mg PO TIDAC Warfarin Sodium 4 Mg Tablet 5 Mg PO DAILY Escitalopram Oxalate 10 Mg Tablet 40 Tab PO DAILY Atorvastatin Calcium 20 Mg Tablet 40 Mg PO DAILY Allergies Allergies: Coded Allergies: I S O L A T I O N *CONTACT* (Verified Allergy, Unknown, 08/02/15) mrsa + No Known Medication Allergies (Verified Allergy, Unknown, 08/02/15) Physical Exam General: Alert, Oriented X3, Cooperative HEENT: Atraumatic, PERRLA Lungs: Clear to auscultation Heart: Other (irregularly irregular, S1-S2) Abdomen: Normal bowel sounds, Soft Extremities: Other (status post amputation) Vitals VITALS Vital Signs Date Time Temp Pulse Resp B/P (MAP) Pulse Ox O2 Delivery O2 Flow Rate FiO2 10/22/16 17:24 100 Nasal Cannula 3.0 10/22/16 17:00 87 16 150/64 (92) 10/22/16 14:00 99.4 99.4 Labs Labs Laboratory Tests Test 10/22/16 06:10 10/22/16 07:00 10/22/16 11:50 10/22/16 15:00 Stool Occult Blood Positive (NEG) White Blood Count 21.5 x10^3/uL (4.0-11.0) Red Blood Count 2.22 x10^6/uL (4.30-5.70) Hemoglobin 6.6 g/dL (13.0-17.5) 8.1 g/dL (13.0-17.5) Hematocrit 20.4 % (39.0-53.0) Mean Corpuscular Volume 92 fL (79-100) Mean Corpuscular Hemoglobin 30 pg (25-35) Mean Corpuscular Hemoglobin Concent 32 g/dL (31-37) Red Cell Distribution Width 16.9 % (11.5-14.5) Platelet Count 316 x10^3/uL (140-400) Neutrophils (%) (Auto) 95 % (31-73) Lymphocytes (%) (Auto) 2 % (24-48) Monocytes (%) (Auto) 3 % (0-9) Eosinophils (%) (Auto) 0 % (0-3) Basophils (%) (Auto) 0 % (0-3) Neutrophils # (Auto) 20.4 x10^3uL (1.8-7.7) Lymphocytes # (Auto) 0.3 x10^3/uL (1.0-4.8) Monocytes # (Auto) 0.7 x10^3/uL (0.0-1.1) Eosinophils # (Auto) 0.0 x10^3/uL (0.0-0.7) Basophils # (Auto) 0.1 x10^3/uL (0.0-0.2) Segmented Neutrophils % 70 % (35-66) Band Neutrophils % 23 % (0-9) Lymphocytes % 3 % (24-48) Monocytes % 4 % (0-10) Toxic Granulation Slight Platelet Estimate Adequate (ADEQUATE) Hypochromasia Slight Poikilocytosis Slight Anisocytosis Slight Prothrombin Time 34.2 SEC (11.7-14.0) Prothromb Time International Ratio 3.7 (0.8-1.1) Activated Partial Thromboplast Time 41 SEC (24-38) Sodium Level 133 mmol/L (136-145) Potassium Level 4.6 mmol/L (3.5-5.1) Chloride Level 92 mmol/L (98-107) Carbon Dioxide Level 19 mmol/L (21-32) Anion Gap 22 (6-14) Blood Urea Nitrogen 95 mg/dL (8-26) Creatinine 6.4 mg/dL (0.7-1.3) Estimated GFR (Cockcroft-Gault) 9.0 BUN/Creatinine Ratio 15 (6-20) Glucose Level 208 mg/dL (70-99) Lactic Acid Level 4.4 mmol/L (0.4-2.0) 1.0 mmol/L (0.4-2.0) Calcium Level 8.5 mg/dL (8.5-10.1) Total Bilirubin 0.6 mg/dL (0.2-1.0) Aspartate Amino Transf (AST/SGOT) 23 U/L (15-37) Alanine Aminotransferase (ALT/SGPT) 28 U/L (16-63) Alkaline Phosphatase 126 U/L (46-116) Troponin I Quantitative 0.218 ng/mL (0.000-0.055) Total Protein 7.2 g/dL (6.4-8.2) Albumin 3.3 g/dL (3.4-5.0) Albumin/Globulin Ratio 0.8 (1.0-1.7) Laboratory Tests Test 10/22/16 06:10 10/22/16 07:00 10/22/16 11:50 10/22/16 15:00 Stool Occult Blood Positive (NEG) White Blood Count 21.5 x10^3/uL (4.0-11.0) Red Blood Count 2.22 x10^6/uL (4.30-5.70) Hemoglobin 6.6 g/dL (13.0-17.5) 8.1 g/dL (13.0-17.5) Hematocrit 20.4 % (39.0-53.0) Mean Corpuscular Volume 92 fL (79-100) Mean Corpuscular Hemoglobin 30 pg (25-35) Mean Corpuscular Hemoglobin Concent 32 g/dL (31-37) Red Cell Distribution Width 16.9 % (11.5-14.5) Platelet Count 316 x10^3/uL (140-400) Neutrophils (%) (Auto) 95 % (31-73) Lymphocytes (%) (Auto) 2 % (24-48) Monocytes (%) (Auto) 3 % (0-9) Eosinophils (%) (Auto) 0 % (0-3) Basophils (%) (Auto) 0 % (0-3) Neutrophils # (Auto) 20.4 x10^3uL (1.8-7.7) Lymphocytes # (Auto) 0.3 x10^3/uL (1.0-4.8) Monocytes # (Auto) 0.7 x10^3/uL (0.0-1.1) Eosinophils # (Auto) 0.0 x10^3/uL (0.0-0.7) Basophils # (Auto) 0.1 x10^3/uL (0.0-0.2) Segmented Neutrophils % 70 % (35-66) Band Neutrophils % 23 % (0-9) Lymphocytes % 3 % (24-48) Monocytes % 4 % (0-10) Toxic Granulation Slight Platelet Estimate Adequate (ADEQUATE) Hypochromasia Slight Poikilocytosis Slight Anisocytosis Slight Prothrombin Time 34.2 SEC (11.7-14.0) Prothromb Time International Ratio 3.7 (0.8-1.1) Activated Partial Thromboplast Time 41 SEC (24-38) Sodium Level 133 mmol/L (136-145) Potassium Level 4.6 mmol/L (3.5-5.1) Chloride Level 92 mmol/L (98-107) Carbon Dioxide Level 19 mmol/L (21-32) Anion Gap 22 (6-14) Blood Urea Nitrogen 95 mg/dL (8-26) Creatinine 6.4 mg/dL (0.7-1.3) Estimated GFR (Cockcroft-Gault) 9.0 BUN/Creatinine Ratio 15 (6-20) Glucose Level 208 mg/dL (70-99) Lactic Acid Level 4.4 mmol/L (0.4-2.0) 1.0 mmol/L (0.4-2.0) Calcium Level 8.5 mg/dL (8.5-10.1) Total Bilirubin 0.6 mg/dL (0.2-1.0) Aspartate Amino Transf (AST/SGOT) 23 U/L (15-37) Alanine Aminotransferase (ALT/SGPT) 28 U/L (16-63) Alkaline Phosphatase 126 U/L (46-116) Troponin I Quantitative 0.218 ng/mL (0.000-0.055) Total Protein 7.2 g/dL (6.4-8.2) Albumin 3.3 g/dL (3.4-5.0) Albumin/Globulin Ratio 0.8 (1.0-1.7) Assessment/Plan Assessment/Plan This patient appears to be compensated cardiac-vazquez at this time. He has a long cardiac history but that does not seem to be the issue. He has been on anticoagulation with warfarin due to his valvular heart disease as well as the rhythm. In addition to that he scattered known history of DVT and pulmonary embolisms. I agree with holding the anticoagulation for now and to proceed with a GI workup. Thank you very much for asking me to participate in the care of this patient JARON RAMOS MD October 22, 2016 17:36
--- NOTE | 2016-10-22 18:21 | PDOC ---
Provider Note Provider Note H&P dictated.. critical care .more than 30mts time spent coordinating care. #[id number] RADHA MEYER MD October 22, 2016 18:21
[2016-10-22] MEDS: PIPERACILLIN/TAZOBACTAM 2.25 GM in IV NORMAL SALINE 50ML 50 ML IV SCH (18:27)
[2016-10-22 21:26] LABS: CALCIUM 8.5 mg/dL (8.5-10.1); CREATININE 4.4 mg/dL (0.7-1.3); GFR 13.8; POTASSIUM 4.2 mmol/L (3.5-5.1)
--- NOTE | 2016-10-22 22:00 | HP ---
ADMIT DATE: 10/22/2016 LOCATION: 114. REASON FOR ADMISSION TO THE HOSPITAL: Gastrointestinal bleed. HISTORY OF PRESENT ILLNESS: The patient is a 61-year-old male patient known to me with history of diabetes, hypertension, congestive heart failure, sick sinus syndrome, and paroxysmal AFib, on Coumadin. He was having nausea and vomiting the last couple of days, got progressively worse and noticed some black stools, came to the Emergency Room; his hemoglobin was low at 6, white count was high, blood pressure was low. The patient was seen in the Emergency Room, was given fluids, transfusion, and admitted to the ICU, seen by GI, scheduled for an EGD tomorrow. The patient is also on dialysis 3 times a week, was dialyzed in the ICU. PAST MEDICAL HISTORY: History of end-stage renal disease secondary to diabetes, hypertension, chronic systolic heart failure, atrial fibrillation, diabetes type 2, hypertension. PAST SURGICAL HISTORY: Right idzrr-cml-ibje amputation, left big toe amputation, AV shunt in the left arm, had a cardiac cath in the past. The patient is on Coumadin for atrial fibrillation. ALLERGIES: No known drug allergies. MEDICATIONS: At home, the patient is on Coumadin 4 mg, Xanax 1 mg 3 times a day, atorvastatin 40 mg daily, Lomotil p.r.n., Lexapro 40 mg daily, folic acid daily, hydrocodone 5/325 mg q. 6 hours, insulin sliding scale, Reglan 10 mg before meals and at bedtime, senna daily, calcium carbonate times daily, Actos 45 mg daily, Altace 10 mg daily. PERSONAL HISTORY: No history of smoking, alcohol, or drug abuse. FAMILY HISTORY: Positive for diabetes and heart disease in the parents, . SOCIAL HISTORY: The patient lives with his , goes to dialysis in a wheelchair level, has been to the [facility]. PHYSICAL EXAMINATION: GENERAL: The patient is not in any distress, getting dialysis today. At this moment seen in the ICU. VITAL SIGNS: Temperature went up to 101.3, pulse 64, respirations 16, blood pressure 85/38, 97 on 2 liters. HEENT: Head is atraumatic. Pupils equal. Oral cavity: No congestion. NECK: Supple. Thyroid not enlarged. JVD not elevated. CHEST: Symmetrical. CARDIOVASCULAR: S1, S2. LUNGS: Clear to auscultation. ABDOMEN: Slight epigastric tenderness to deep palpation. Bowel sounds present. No mass palpable. EXTERNAL GENITALIA: No Jeong. RECTAL: Deferred. EXTREMITIES: Right nevwo-zlf-samt amputation, stump looks good. Left foot, amputation of the left big toe, patient has ulcer on the posterior left heel, Achilles tendon area, which is 1 inch x 1/2 inch wide, stage 2, with some granulation tissue. LABORATORY DATA: 21 WBC, hemoglobin 6.6, platelets 316. Electrolytes show sodium 133, potassium 4.6, chloride 92, BUN 95, creatinine 6.4, glucose 208. Lactic acid 4.4. LFTs were normal. Troponin 0.2. INR is 3.7. Stool was positive for occult blood. CT of the abdomen and pelvis, some ascites, sludge in the gallbladder. Chest x-ray, cardiomegaly. EKG done, report is pending. FINAL IMPRESSION: 1. Acute gastrointestinal bleed, possible upper gastrointestinal source. 2. Leukocytosis with elevated temperature, possible aspiration pneumonia. 3. End-stage renal disease, on hemodialysis. 4. Chronic atrial fibrillation, on Coumadin. 5. Anemia secondary to acute gastrointestinal blood loss. 6. Diabetes, insulin-dependent. 7. Chronic systolic heart failure, stable. 8. Right smbju-weq-qeaw amputation. 9. Stage 2 ulcer, left foot. PLAN: At this time, was admitted to hospital, was seen by Cardiology and also GI scheduled for EGD tomorrow,Octeride IV as well as IV Protonix drip and transfuse to keep hemoglobin between 8 and 10, checking the hemoglobin every 8 hours where he is given FFP and vitamin K. Dialyzed today and see how the patient's condition improves. Also, because of his aspiration pneumonia, was given a dose of vancomycin and Zosyn. ID is consulted. Critical care, total time spent more than 30 minutes. RADHA MEYER MD DR: TODD/makenna JOB#: [id number] / [id number] KAROLINA
[2016-10-23] VITALS (28 sets, daily range): BP systolic 76–134; BP diastolic 37–58
[2016-10-23] MEDS: PIPERACILLIN/TAZOBACTAM 2.25 GM in IV NORMAL SALINE 50ML 50 ML IV SCH ×4 (01:27→21:41)
[2016-10-23] MEDS: NYSTATIN TOPICAL POWDER 15GM BOTTLE. TP SCH ×3 (01:29→21:20)
[2016-10-23] MEDS: PANTOPRAZOLE SODIUM IV 80 MG in IV NORMAL SALINE 100ML 100 ML IV SCH ×2 (01:30→13:00)
[2016-10-23 05:47] LABS: BASO # 0.1 x10^3/uL (0.0-0.2); BASO % 0 % (0-3); EOS % 0 % (0-3); HEMATOCRIT 22.1 % (39.0-53.0); HEMOGLOBIN 7.2 g/dL (13.0-17.5); LYMPH # 0.7 x10^3/uL (1.0-4.8); LYMPH % 3 % (24-48); MEAN CORPUSCULAR HEMOGLOBIN 29 pg (25-35); MEAN CORPUSCULAR HGB CONC 33 g/dL (31-37); MEAN CORPUSCULAR VOLUME 90 fL (79-100); MONO % 6 % (0-9); NEUT % 92 % (31-73); PLATELET COUNT 267 x10^3/uL (140-400); RED BLOOD COUNT 2.44 x10^6/uL (4.30-5.70); RED CELL DISTRIBUTION WIDTH 16.5 % (11.5-14.5); WHITE BLOOD COUNT 28.4 x10^3/uL (4.0-11.0)
[2016-10-23 06:06] LABS: CALCIUM 8.8 mg/dL (8.5-10.1); CREATININE 4.7 mg/dL (0.7-1.3); GFR 12.8; POTASSIUM 4.7 mmol/L (3.5-5.1)
[2016-10-23] MEDS: ONDANSETRON PF 4 MG/2 ML VIAL. IV PRN ×2 (07:35→13:12)
[2016-10-23] MEDS: INSULIN ASPART 300 UNITS/3 ML INSULN.PEN SQ SCH ×6 (08:00→17:00)
--- NOTE | 2016-10-23 08:42 | PDOC ---
Infectious Disease Note Vital Sign Vital Signs Vital Signs Date Time Temp Pulse Resp B/P (MAP) Pulse Ox O2 Delivery O2 Flow Rate FiO2 10/23/16 06:00 77 16 80/48 (59) 99 Nasal Cannula 3.0 10/23/16 04:00 98.9 98.9 Labs Lab Laboratory Tests Test 10/22/16 11:15 10/22/16 11:50 10/22/16 15:00 10/22/16 18:37 Nasal Screen MRSA (PCR) Negative (Negative) Hemoglobin 8.1 g/dL (13.0-17.5) Lactic Acid Level 1.0 mmol/L (0.4-2.0) Glucose (Fingerstick) 111 mg/dL (70-99) Test 10/22/16 20:55 10/23/16 05:00 Hemoglobin 7.0 g/dL (13.0-17.5) 7.2 g/dL (13.0-17.5) Sodium Level 138 mmol/L (136-145) 136 mmol/L (136-145) Potassium Level 4.2 mmol/L (3.5-5.1) 4.7 mmol/L (3.5-5.1) Chloride Level 98 mmol/L (98-107) 97 mmol/L (98-107) Carbon Dioxide Level 25 mmol/L (21-32) 26 mmol/L (21-32) Anion Gap 15 (6-14) 13 (6-14) Blood Urea Nitrogen 57 mg/dL (8-26) 62 mg/dL (8-26) Creatinine 4.4 mg/dL (0.7-1.3) 4.7 mg/dL (0.7-1.3) Estimated GFR (Cockcroft-Gault) 13.8 12.8 Glucose Level 126 mg/dL (70-99) 165 mg/dL (70-99) Calcium Level 8.5 mg/dL (8.5-10.1) 8.8 mg/dL (8.5-10.1) Troponin I Quantitative 1.204 ng/mL (0.000-0.055) White Blood Count 28.4 x10^3/uL (4.0-11.0) Red Blood Count 2.44 x10^6/uL (4.30-5.70) Hematocrit 22.1 % (39.0-53.0) Mean Corpuscular Volume 90 fL (79-100) Mean Corpuscular Hemoglobin 29 pg (25-35) Mean Corpuscular Hemoglobin Concent 33 g/dL (31-37) Red Cell Distribution Width 16.5 % (11.5-14.5) Platelet Count 267 x10^3/uL (140-400) Neutrophils (%) (Auto) 92 % (31-73) Lymphocytes (%) (Auto) 3 % (24-48) Monocytes (%) (Auto) 6 % (0-9) Eosinophils (%) (Auto) 0 % (0-3) Basophils (%) (Auto) 0 % (0-3) Neutrophils # (Auto) 26.0 x10^3uL (1.8-7.7) Lymphocytes # (Auto) 0.7 x10^3/uL (1.0-4.8) Monocytes # (Auto) 1.6 x10^3/uL (0.0-1.1) Eosinophils # (Auto) 0.0 x10^3/uL (0.0-0.7) Basophils # (Auto) 0.1 x10^3/uL (0.0-0.2) Objective Assessment GI bleed Fever and leukocytosis ESRD on HD DM Possible aspiration Lactic acidosis Plan Plan of Care vanc and zosyn culture supportive care ALEAH SCHAFER MD October 23, 2016 08:42
[2016-10-23 10:15] LABS: INR 2.9 (0.8-1.1); PROTHROMBIN TIME PATIENT 28.8 SEC (11.7-14.0)
--- NOTE | 2016-10-23 10:16 | PDOC ---
PROGRESS NOTES Subjective Subjective no more active bleed Objective Objective Vital Signs Date Time Temp Pulse Resp B/P (MAP) Pulse Ox O2 Delivery O2 Flow Rate FiO2 10/23/16 06:00 77 16 80/48 (59) 99 Nasal Cannula 3.0 10/23/16 04:00 98.9 98.9 Intake and Output 10/23/16 07:00 Intake Total 1902 ml Output Total 0 ml Balance 1902 ml Intake Oral 0 ml IV Total 1552 ml Blood Product IV Normal Saline Flush 350 ml Output Urine Total 0 ml Physical Exam Abdomen: Normal bowel sounds, Soft Heart: Other (irregularly irregular, S1-S2) Extremities: Other (status post amputation) General: Alert, Oriented X3, Cooperative HEENT: Atraumatic, PERRLA Lungs: Clear to auscultation MUSCULOSKELETAL: Other (LE AMP) Neuro: Normal speech Psych/Mental Status: Other (ANXIOUS AFFECT) Skin: No rashes, No breakdown, No significant lesion COMMENT Rt BKA Assessment Assessment FINAL IMPRESSION: 1. Acute gastrointestinal bleed, possible upper gastrointestinal source. 2. Leukocytosis with elevated temperature, possible aspiration pneumonia. 3. End-stage renal disease, on hemodialysis. 4. Chronic atrial fibrillation, on Coumadin. 5. Anemia secondary to acute gastrointestinal blood loss. 6. Diabetes, insulin-dependent. 7. Chronic systolic heart failure, stable. 8. Right ihhiv-tat-rbru amputation. 9. Stage 2 ulcer, left foot. 10 .sarika troponin ,?demand ischemia PLAN: transfuse prn, Hb 7.0 EGD today. FFP and vit k . inr check.pending iv antibiotics for aspiration, wbc 22 Dialysis today?. At this time, was admitted to hospital, was seen by Cardiology and also GI scheduled for EGD today.Octaride IV as well as IV Protonix drip and transfuse to keep hemoglobin between 8 and 10, checking the hemoglobin every 8 hours where he is given FFB and vitamin K. Dialyzed today and see how the patient's condition improves. Also, because of his aspiration pneumonia, was given a dose of vancomycin and Zosyn. ID is consulted. Problems: Comment Review of Relevant I have reviewed the following items maria teresa (where applicable) has been applied. Labs Laboratory Tests Test 10/22/16 11:15 10/22/16 11:50 10/22/16 15:00 10/22/16 18:37 Nasal Screen MRSA (PCR) Negative (Negative) Hemoglobin 8.1 g/dL (13.0-17.5) Lactic Acid Level 1.0 mmol/L (0.4-2.0) Glucose (Fingerstick) 111 mg/dL (70-99) Test 10/22/16 20:55 10/23/16 05:00 Hemoglobin 7.0 g/dL (13.0-17.5) 7.2 g/dL (13.0-17.5) Sodium Level 138 mmol/L (136-145) 136 mmol/L (136-145) Potassium Level 4.2 mmol/L (3.5-5.1) 4.7 mmol/L (3.5-5.1) Chloride Level 98 mmol/L (98-107) 97 mmol/L (98-107) Carbon Dioxide Level 25 mmol/L (21-32) 26 mmol/L (21-32) Anion Gap 15 (6-14) 13 (6-14) Blood Urea Nitrogen 57 mg/dL (8-26) 62 mg/dL (8-26) Creatinine 4.4 mg/dL (0.7-1.3) 4.7 mg/dL (0.7-1.3) Estimated GFR (Cockcroft-Gault) 13.8 12.8 Glucose Level 126 mg/dL (70-99) 165 mg/dL (70-99) Calcium Level 8.5 mg/dL (8.5-10.1) 8.8 mg/dL (8.5-10.1) Troponin I Quantitative 1.204 ng/mL (0.000-0.055) White Blood Count 28.4 x10^3/uL (4.0-11.0) Red Blood Count 2.44 x10^6/uL (4.30-5.70) Hematocrit 22.1 % (39.0-53.0) Mean Corpuscular Volume 90 fL (79-100) Mean Corpuscular Hemoglobin 29 pg (25-35) Mean Corpuscular Hemoglobin Concent 33 g/dL (31-37) Red Cell Distribution Width 16.5 % (11.5-14.5) Platelet Count 267 x10^3/uL (140-400) Neutrophils (%) (Auto) 92 % (31-73) Lymphocytes (%) (Auto) 3 % (24-48) Monocytes (%) (Auto) 6 % (0-9) Eosinophils (%) (Auto) 0 % (0-3) Basophils (%) (Auto) 0 % (0-3) Neutrophils # (Auto) 26.0 x10^3uL (1.8-7.7) Lymphocytes # (Auto) 0.7 x10^3/uL (1.0-4.8) Monocytes # (Auto) 1.6 x10^3/uL (0.0-1.1) Eosinophils # (Auto) 0.0 x10^3/uL (0.0-0.7) Basophils # (Auto) 0.1 x10^3/uL (0.0-0.2) Medications Current Medications Albumin Human 200 ml @ 200 mls/hr 1X PRN PRN IV Hypotension; Start 10/22/16 at 15:15; Stop 10/22/16 at 21:14; Status DC Darbepoetin Noel (Aranesp) 60 mcg 1X ONCE SQ Last administered on 10/22/16t 15 :48; Start 10/22/16 at 13:00; Stop 10/22/16 at 13:01; Status DC Dextrose (Dextrose 50%-Water Syringe) 12.5 gm PRN Q15MIN PRN IV SEE COMMENTS; Start 10/22/16 at 11:45 Fentanyl Citrate (Fentanyl 2ml Vial) 25 mcg PRN Q2HR PRN IV SEVERE PAIN; Start 10/22/16 at 21:15 Info (PHARMACY MONITORING -- do not chart) 1 each PRN DAILY PRN MC SEE COMMENTS ; Start 10/22/16 at 15:15 Info (PHARMACY MONITORING -- do not chart) 1 each PRN DAILY PRN MC SEE COMMENTS ; Start 10/22/16 at 15:15; Status UNV Insulin Aspart (NovoLOG) 0-5 UNITS TIDWMEALS SQ ; Start 10/22/16 at 12:00 Insulin Aspart (NovoLOG) 0-7 UNITS TIDWMEALS SQ ; Start 10/22/16 at 12:00 Mupirocin (Bactroban) 1 leana BID NS ; Start 10/23/16 at 09:00 Norepinephrine Bitartrate 250 ml @ As Directed STK-MED ONCE IV ; Start at 11:03; Stop 10/22/16 at 11:04; Status DC Norepinephrine Bitartrate 250 ml @ 0 mls/hr CONT PRN IV SEE I/O RECORD Last administered on 10/22/16 11:11; Start 10/22/16 at 11:15 Nystatin (Nystop) 1 leana BID TP Last administered on 10/23/16 01:29; Start at 22:00 Ondansetron HCl (Zofran) 4 mg PRN Q6HRS PRN IV NAUSEA/VOMITING Last administered on 10/23/16 07:35; Start 10/23/16 at 07:30 Piperacillin Sod/ Tazobactam Sod (Zosyn Per Pharmacy) 1 each PRN DAILY PRN MC SEE COMMENTS; Start 10/22/16 at 11:30 Piperacillin Sod/ Tazobactam Sod 2.25 gm/Sodium Chloride 50 ml @ 100 mls/hr Q8HRS IV Last administered on 10/23/16 06:06; Start 10/22/16 at 12:00 Sodium Chloride 1,000 ml @ 30 mls/hr Q24H IV ; Start 10/23/16 at 11:30 Sodium Chloride 1,000 ml @ 400 mls/hr Q2H30M PRN IV PATENCY; Start 10/22/16 at 15:04; Stop 10/23/16 at 03:03; Status DC Sodium Chloride 1,000 ml @ 1,000 mls/hr Q1H PRN IV hypotension; Start 10/22/16 at 15:04; Stop 10/22/16 at 21:03; Status DC Vancomycin HCl 2 gm/Sodium Chloride 500 ml @ 250 mls/hr 1X ONCE IV Last administered on 10/22/16 18:28; Start 10/22/16 at 11:30; Stop 10/22/16 at 13:29 ; Status DC Vitals/I & O Vital Sign - Last 24 Hours 10/22/16 10/22/16 10/22/16 10/22/16 10:30 10:45 11:00 12:00 Temp 101.3 101.3 Pulse 64 66 68 Resp 16 16 16 B/P (MAP) 85/38 (54) 70/38 (49) 101/47 (65) Pulse Ox 97 97 100 O2 Delivery Nasal Cannula Nasal Cannula Nasal Cannula Nasal Cannula O2 Flow Rate 3.0 2.0 3.0 3.0 10/22/16 10/22/16 10/22/16 10/22/16 12:00 12:05 13:00 13:48 Temp 100.3 99.5 100.3 99.5 Pulse 70 65 68 Resp 18 16 16 B/P (MAP) 104/49 121/49 (73) 121/49 Pulse Ox 99 O2 Delivery Nasal Cannula Nasal Cannula O2 Flow Rate 3.0 3.0 10/22/16 10/22/16 10/22/16 10/22/16 14:00 15:00 16:00 16:00 Temp 99.4 99.4 Pulse 66 65 68 Resp 16 16 16 B/P (MAP) 137/46 (76) 131/57 (81) 132/65 (87) Pulse Ox 100 100 100 O2 Delivery Nasal Cannula Nasal Cannula Nasal Cannula Nasal Cannula O2 Flow Rate 3.0 3.0 3.0 3.0 10/22/16 10/22/16 10/22/16 10/22/16 17:00 17:24 18:00 19:00 Temp 99.3 99.3 Pulse 87 68 64 Resp 16 16 12 B/P (MAP) 150/64 (92) 131/62 (85) 97/44 (61) Pulse Ox 100 100 100 100 O2 Delivery Nasal Cannula Nasal Cannula Nasal Cannula Nasal Cannula O2 Flow Rate 3.0 3.0 3.0 3.0 10/22/16 10/22/16 10/22/16 10/22/16 20:00 20:00 20:52 21:00 Temp 98.7 98.7 Pulse 66 64 Resp 20 16 B/P (MAP) 90/48 (62) 86/43 (57) Pulse Ox 100 100 100 O2 Delivery Nasal Cannula Nasal Cannula Nasal Cannula Nasal Cannula O2 Flow Rate 3.0 3.0 3.0 3.0 10/22/16 10/22/16 10/22/16 10/22/16 21:22 22:00 22:53 23:00 Temp 98.7 98.7 Pulse 62 63 64 Resp 16 24 20 24 B/P (MAP) 82/44 (57) 67/30 87/53 (64) Pulse Ox 100 100 100 O2 Delivery Nasal Cannula Nasal Cannula Nasal Cannula O2 Flow Rate 3.0 3.0 3.0 10/22/16 10/23/16 10/23/16 10/23/16 23:59 00:00 01:00 01:45 Temp 99.0 99.0 99.0 99.0 Pulse 65 65 68 Resp 16 16 16 B/P (MAP) 92/47 (62) 92/48 (63) 92/48 Pulse Ox 100 100 O2 Delivery Nasal Cannula Nasal Cannula Nasal Cannula O2 Flow Rate 3.0 3.0 3.0 10/23/16 10/23/16 10/23/16 10/23/16 02:00 03:00 04:00 04:00 Temp 98.9 98.9 Pulse 65 56 70 Resp 16 16 16 B/P (MAP) 108/45 (66) 86/49 (61) 87/49 (62) Pulse Ox 100 95 95 O2 Delivery Nasal Cannula Nasal Cannula Nasal Cannula Nasal Cannula O2 Flow Rate 3.0 3.0 3.0 3.0 10/23/16 10/23/16 05:00 06:00 Pulse 60 77 Resp 16 16 B/P (MAP) 90/46 (61) 80/48 (59) Pulse Ox 99 99 O2 Delivery Nasal Cannula Nasal Cannula O2 Flow Rate 3.0 3.0 Intake and Output 10/22/16 10/22/16 10/23/16 15:00 23:00 07:00 Intake Total 360 ml 1542 ml Output Total 0 ml 0 ml 0 ml Balance 360 ml 0 ml 1542 ml RADHA MEYER MD October 23, 2016 10:16
--- NOTE | 2016-10-23 10:30 | CONS ---
DATE OF CONSULTATION: 10/23/2016 REQUESTING PHYSICIAN: Dr. Araujo. REASON FOR CONSULTATION: Lactic acidosis. HISTORY OF PRESENT ILLNESS: This is a 61-year-old gentleman who has multiple medical problems including diabetes, end-stage renal disease, who says, couple of days ago, he started having loose stool and then yesterday turned into pure black stool and then he started coffee ground emesis. He vomited about at least 3 times. The patient came in, patient had fever here. The patient had lactic acidosis, severe anemia, leukocytosis. The patient has been admitted, supported, and started on vancomycin and Zosyn. The patient is feeling a little bit better. The black stool has improved now with the stooling. The patient denies any chest pain, denies any shortness of breath. There is some diffuse abdominal discomfort present. He denies any headache or visual symptoms. PAST MEDICAL HISTORY: Positive for diabetes mellitus; end-stage renal disease, on hemodialysis; hypertension; congestive heart failure; atrial fibrillation. The patient also has right below knee amputation, left big toe amputation, and a left calcaneal wound that he has been doctoring at the wound care center. ALLERGIES: No known drug allergies. CURRENT MEDICATIONS: Reviewed. The patient is on vancomycin and Zosyn. REVIEW OF SYSTEMS: As per HPI, all other systems reviewed and are negative. PHYSICAL EXAMINATION: GENERAL: Alert and oriented gentleman, not in any distress. VITAL SIGNS: Stable, afebrile. T-max is 99, when he came in, it was 101.3; pulse is 65; respirations 16; blood pressure 92/48. HEENT: Both pupils are round and reacting. No conjunctival lesion. No lesion in the mouth. NECK: Supple, no JVP, no lymphadenopathy. LUNGS: Clear. HEART: S1, S2 regular. ABDOMEN: Soft, very mild diffuse tenderness present. No rebound or guarding. EXTREMITIES: No edema or cyanosis. SKIN: Unremarkable. Right below knee amputation is unremarkable. Left calcaneal ulcer is not bad. Rest of the skin examination is unremarkable. NEUROLOGIC: The patient is neurologically intact. He does have a left upper arm graft/fistula and it is not showing any signs of infection. LABORATORY DATA: White count is 28,000; hemoglobin was down to 6.6; platelets are normal. BUN is 62, creatinine 4.7. Lactic acid was up to 4.4, which has improved. Cultures are pending. CT scan of the abdomen and pelvis was unremarkable. Chest x-ray is unremarkable. IMPRESSION: 1. Gastrointestinal bleed. 2. Lactic acidosis may have been secondary to the infection/sepsis. 3. Possible aspiration from vomiting. 4. End-stage renal disease, on hemodialysis. 5. Diabetes. 6. Fever and leukocytosis. RECOMMENDATIONS: I would continue vancomycin and Zosyn, earl-cultures have been done, supportive care, control of GI bleed, and we will continue to follow. Thank you very much, Dr. Araujo, for giving me the opportunity to participate in this patient's care. ALEAH SCHAFER MD DR: FLOR/makenna JOB#: [id number] / [id number]
--- NOTE | 2016-10-23 11:04 | PDOC ---
Renal-Progress Notes Subjective Notes Notes FEELING BETTER, HAVING BM History of Present Illness Hx of present illness STABLE Vitals Vitals Vital Signs Date Time Temp Pulse Resp B/P (MAP) Pulse Ox O2 Delivery O2 Flow Rate FiO2 10/23/16 06:00 77 16 80/48 (59) 99 Nasal Cannula 3.0 10/23/16 04:00 98.9 98.9 Weight Weight [ ] I.O. Intake and Output Intake and Output 10/23/16 06:59 Intake Total 1902 ml Output Total 0 ml Balance 1902 ml Intake Oral 0 ml IV Total 1552 ml Blood Product IV Normal Saline Flush 350 ml Output Urine Total 0 ml Labs Labs Laboratory Tests Test 10/22/16 11:15 10/22/16 11:50 10/22/16 15:00 10/22/16 18:37 Nasal Screen MRSA (PCR) Negative (Negative) Hemoglobin 8.1 g/dL (13.0-17.5) Lactic Acid Level 1.0 mmol/L (0.4-2.0) Glucose (Fingerstick) 111 mg/dL (70-99) Test 10/22/16 20:55 10/23/16 05:00 10/23/16 09:45 Hemoglobin 7.0 g/dL (13.0-17.5) 7.2 g/dL (13.0-17.5) Sodium Level 138 mmol/L (136-145) 136 mmol/L (136-145) Potassium Level 4.2 mmol/L (3.5-5.1) 4.7 mmol/L (3.5-5.1) Chloride Level 98 mmol/L (98-107) 97 mmol/L (98-107) Carbon Dioxide Level 25 mmol/L (21-32) 26 mmol/L (21-32) Anion Gap 15 (6-14) 13 (6-14) Blood Urea Nitrogen 57 mg/dL (8-26) 62 mg/dL (8-26) Creatinine 4.4 mg/dL (0.7-1.3) 4.7 mg/dL (0.7-1.3) Estimated GFR (Cockcroft-Gault) 13.8 12.8 Glucose Level 126 mg/dL (70-99) 165 mg/dL (70-99) Calcium Level 8.5 mg/dL (8.5-10.1) 8.8 mg/dL (8.5-10.1) Troponin I Quantitative 1.204 ng/mL (0.000-0.055) White Blood Count 28.4 x10^3/uL (4.0-11.0) Red Blood Count 2.44 x10^6/uL (4.30-5.70) Hematocrit 22.1 % (39.0-53.0) Mean Corpuscular Volume 90 fL (79-100) Mean Corpuscular Hemoglobin 29 pg (25-35) Mean Corpuscular Hemoglobin Concent 33 g/dL (31-37) Red Cell Distribution Width 16.5 % (11.5-14.5) Platelet Count 267 x10^3/uL (140-400) Neutrophils (%) (Auto) 92 % (31-73) Lymphocytes (%) (Auto) 3 % (24-48) Monocytes (%) (Auto) 6 % (0-9) Eosinophils (%) (Auto) 0 % (0-3) Basophils (%) (Auto) 0 % (0-3) Neutrophils # (Auto) 26.0 x10^3uL (1.8-7.7) Lymphocytes # (Auto) 0.7 x10^3/uL (1.0-4.8) Monocytes # (Auto) 1.6 x10^3/uL (0.0-1.1) Eosinophils # (Auto) 0.0 x10^3/uL (0.0-0.7) Basophils # (Auto) 0.1 x10^3/uL (0.0-0.2) Prothrombin Time 28.8 SEC (11.7-14.0) Prothromb Time International Ratio 2.9 (0.8-1.1) Review of Systems Constitutional: yes: weakness, alert, oriented Ears/Nose/Throat: Yes: no symptom reported Pulmonary: Yes dyspnea Cardiovascular: Yes edema Gastrointestional: Yes: diarrhea Musculoskeletal: Yes: muscle stiffness Skin: Yes no symptom reported Physical Exam General Appearance: no apparent distress Skin: warm Respiratory: decreased breath sounds Heart: S1S2 Abdomen: soft, bowel sounds present Genitourinary: bladder flat Neurology: alert Assessment Assessment IMP ANEMIA ESRD HYPERVOLEMIA PLAN EXTRA HD TODAY TO GET HIM TO HIS DW CONT ARANESP PRBC TODAY GI EVAL AND TX LUEVANO,DONNY S MD October 23, 2016 11:04
[2016-10-23] MEDS: IV NORMAL SALINE 1000ML BAG 1,000 ML IV SCH (11:30)
[2016-10-23] MEDS: MUPIROCIN 2 % NASAL OINTMENT 22GM TUBE. NS SCH ×2 (13:14→21:21)
[2016-10-23] MEDS: fentaNYL PF VIAL 100 MCG/2 ML VIAL IV PRN ×2 (14:27→19:06)
[2016-10-23] MEDS ORDERED: ETOMIDATE 20 MG/10 ML VIAL. IV ONE (15:03)
[2016-10-23] MEDS ORDERED: PROPOFOL 20 ML IV ONE (15:03)
--- NOTE | 2016-10-23 15:44 | PDOC4 ---
PROCEDURE Procedure EGD Indication: hematemesis. Meds: per anesthesia Findings: D-Ehvqgi-nycqex reflux at 40cm with very mild stricturing, non-obstructive. G--Normal D--Edema, bulb. No discrete ulcer seen (though if on posterior wall at apex, couldn't see). No fresh or old blood present. Second portion normal. Leesa. well. IMP: 1. Reflux esophagitis 2. Would be suspicious of unseen ulcer at apex of the bulb, posterior wall--seems a popular spot for NSAID DU's and difficult to see with 'scope. REC: Clears ok. po PPI bid while here; consider daily PPI at home chronically, particularly if continues to use NSAIDs. No NSAIDS for at least 2 weeks. Strive to keep INR ~2.5 or so. GURWINDER ESTEVEZ MD October 23, 2016 15:44
[2016-10-23 16:33] LABS: HEMATOCRIT 23.6 % (39.0-53.0); HEMOGLOBIN 7.8 g/dL (13.0-17.5); RED BLOOD COUNT 2.67 x10^6/uL (4.30-5.70); WHITE BLOOD COUNT 24.6 x10^3/uL (4.0-11.0)
--- NOTE | 2016-10-23 16:40 | PDOC ---
PROGRESS NOTES Subjective Subjective Patient's BP has been labile. He had an endoscopy done today and tolerated it well. No apparent source of bleeding was found. Objective Objective Vital Signs Date Time Temp Pulse Resp B/P (MAP) Pulse Ox O2 Delivery O2 Flow Rate FiO2 10/23/16 15:39 70 20 124/56 97 10/23/16 15:35 99.4 Nasal Cannula 99.4 10/23/16 15:19 3.0 Intake and Output 10/23/16 07:00 Intake Total 1902 ml Output Total 0 ml Balance 1902 ml Intake Oral 0 ml IV Total 1552 ml Blood Product IV Normal Saline Flush 350 ml Output Urine Total 0 ml Physical Exam Physical Exam No significant changes in cardiac exam Assessment Assessment Patient's BP is chronically labile especially on dialysis days. I agree with present plan. Comment Review of Relevant I have reviewed the following items maria teresa (where applicable) has been applied. Labs Laboratory Tests Test 10/22/16 06:10 10/22/16 07:00 10/22/16 11:15 10/22/16 11:50 Stool Occult Blood Positive (NEG) White Blood Count 21.5 x10^3/uL (4.0-11.0) Red Blood Count 2.22 x10^6/uL (4.30-5.70) Hemoglobin 6.6 g/dL (13.0-17.5) 8.1 g/dL (13.0-17.5) Hematocrit 20.4 % (39.0-53.0) Mean Corpuscular Volume 92 fL (79-100) Mean Corpuscular Hemoglobin 30 pg (25-35) Mean Corpuscular Hemoglobin Concent 32 g/dL (31-37) Red Cell Distribution Width 16.9 % (11.5-14.5) Platelet Count 316 x10^3/uL (140-400) Neutrophils (%) (Auto) 95 % (31-73) Lymphocytes (%) (Auto) 2 % (24-48) Monocytes (%) (Auto) 3 % (0-9) Eosinophils (%) (Auto) 0 % (0-3) Basophils (%) (Auto) 0 % (0-3) Neutrophils # (Auto) 20.4 x10^3uL (1.8-7.7) Lymphocytes # (Auto) 0.3 x10^3/uL (1.0-4.8) Monocytes # (Auto) 0.7 x10^3/uL (0.0-1.1) Eosinophils # (Auto) 0.0 x10^3/uL (0.0-0.7) Basophils # (Auto) 0.1 x10^3/uL (0.0-0.2) Segmented Neutrophils % 70 % (35-66) Band Neutrophils % 23 % (0-9) Lymphocytes % 3 % (24-48) Monocytes % 4 % (0-10) Toxic Granulation Slight Platelet Estimate Adequate (ADEQUATE) Hypochromasia Slight Poikilocytosis Slight Anisocytosis Slight Prothrombin Time 34.2 SEC (11.7-14.0) Prothromb Time International Ratio 3.7 (0.8-1.1) Activated Partial Thromboplast Time 41 SEC (24-38) Sodium Level 133 mmol/L (136-145) Potassium Level 4.6 mmol/L (3.5-5.1) Chloride Level 92 mmol/L (98-107) Carbon Dioxide Level 19 mmol/L (21-32) Anion Gap 22 (6-14) Blood Urea Nitrogen 95 mg/dL (8-26) Creatinine 6.4 mg/dL (0.7-1.3) Estimated GFR (Cockcroft-Gault) 9.0 BUN/Creatinine Ratio 15 (6-20) Glucose Level 208 mg/dL (70-99) Lactic Acid Level 4.4 mmol/L (0.4-2.0) Calcium Level 8.5 mg/dL (8.5-10.1) Total Bilirubin 0.6 mg/dL (0.2-1.0) Aspartate Amino Transf (AST/SGOT) 23 U/L (15-37) Alanine Aminotransferase (ALT/SGPT) 28 U/L (16-63) Alkaline Phosphatase 126 U/L (46-116) Troponin I Quantitative 0.218 ng/mL (0.000-0.055) Total Protein 7.2 g/dL (6.4-8.2) Albumin 3.3 g/dL (3.4-5.0) Albumin/Globulin Ratio 0.8 (1.0-1.7) Nasal Screen MRSA (PCR) Negative (Negative) Test 10/22/16 15:00 10/22/16 18:37 10/22/16 20:55 10/23/16 05:00 Lactic Acid Level 1.0 mmol/L (0.4-2.0) Glucose (Fingerstick) 111 mg/dL (70-99) Hemoglobin 7.0 g/dL (13.0-17.5) 7.2 g/dL (13.0-17.5) Sodium Level 138 mmol/L (136-145) 136 mmol/L (136-145) Potassium Level 4.2 mmol/L (3.5-5.1) 4.7 mmol/L (3.5-5.1) Chloride Level 98 mmol/L (98-107) 97 mmol/L (98-107) Carbon Dioxide Level 25 mmol/L (21-32) 26 mmol/L (21-32) Anion Gap 15 (6-14) 13 (6-14) Blood Urea Nitrogen 57 mg/dL (8-26) 62 mg/dL (8-26) Creatinine 4.4 mg/dL (0.7-1.3) 4.7 mg/dL (0.7-1.3) Estimated GFR (Cockcroft-Gault) 13.8 12.8 Glucose Level 126 mg/dL (70-99) 165 mg/dL (70-99) Calcium Level 8.5 mg/dL (8.5-10.1) 8.8 mg/dL (8.5-10.1) Troponin I Quantitative 1.204 ng/mL (0.000-0.055) White Blood Count 28.4 x10^3/uL (4.0-11.0) Red Blood Count 2.44 x10^6/uL (4.30-5.70) Hematocrit 22.1 % (39.0-53.0) Mean Corpuscular Volume 90 fL (79-100) Mean Corpuscular Hemoglobin 29 pg (25-35) Mean Corpuscular Hemoglobin Concent 33 g/dL (31-37) Red Cell Distribution Width 16.5 % (11.5-14.5) Platelet Count 267 x10^3/uL (140-400) Neutrophils (%) (Auto) 92 % (31-73) Lymphocytes (%) (Auto) 3 % (24-48) Monocytes (%) (Auto) 6 % (0-9) Eosinophils (%) (Auto) 0 % (0-3) Basophils (%) (Auto) 0 % (0-3) Neutrophils # (Auto) 26.0 x10^3uL (1.8-7.7) Lymphocytes # (Auto) 0.7 x10^3/uL (1.0-4.8) Monocytes # (Auto) 1.6 x10^3/uL (0.0-1.1) Eosinophils # (Auto) 0.0 x10^3/uL (0.0-0.7) Basophils # (Auto) 0.1 x10^3/uL (0.0-0.2) Test 10/23/16 09:45 10/23/16 16:25 Prothrombin Time 28.8 SEC (11.7-14.0) Prothromb Time International Ratio 2.9 (0.8-1.1) White Blood Count 24.6 x10^3/uL (4.0-11.0) Red Blood Count 2.67 x10^6/uL (4.30-5.70) Hemoglobin 7.8 g/dL (13.0-17.5) Hematocrit 23.6 % (39.0-53.0) Mean Corpuscular Volume 89 fL (79-100) Mean Corpuscular Hemoglobin 29 pg (25-35) Mean Corpuscular Hemoglobin Concent 33 g/dL (31-37) Red Cell Distribution Width 17.0 % (11.5-14.5) Platelet Count 269 x10^3/uL (140-400) Laboratory Tests Test 10/22/16 18:37 10/22/16 20:55 10/23/16 05:00 10/23/16 09:45 Glucose (Fingerstick) 111 mg/dL (70-99) Hemoglobin 7.0 g/dL (13.0-17.5) 7.2 g/dL (13.0-17.5) Sodium Level 138 mmol/L (136-145) 136 mmol/L (136-145) Potassium Level 4.2 mmol/L (3.5-5.1) 4.7 mmol/L (3.5-5.1) Chloride Level 98 mmol/L (98-107) 97 mmol/L (98-107) Carbon Dioxide Level 25 mmol/L (21-32) 26 mmol/L (21-32) Anion Gap 15 (6-14) 13 (6-14) Blood Urea Nitrogen 57 mg/dL (8-26) 62 mg/dL (8-26) Creatinine 4.4 mg/dL (0.7-1.3) 4.7 mg/dL (0.7-1.3) Estimated GFR (Cockcroft-Gault) 13.8 12.8 Glucose Level 126 mg/dL (70-99) 165 mg/dL (70-99) Calcium Level 8.5 mg/dL (8.5-10.1) 8.8 mg/dL (8.5-10.1) Troponin I Quantitative 1.204 ng/mL (0.000-0.055) White Blood Count 28.4 x10^3/uL (4.0-11.0) Red Blood Count 2.44 x10^6/uL (4.30-5.70) Hematocrit 22.1 % (39.0-53.0) Mean Corpuscular Volume 90 fL (79-100) Mean Corpuscular Hemoglobin 29 pg (25-35) Mean Corpuscular Hemoglobin Concent 33 g/dL (31-37) Red Cell Distribution Width 16.5 % (11.5-14.5) Platelet Count 267 x10^3/uL (140-400) Neutrophils (%) (Auto) 92 % (31-73) Lymphocytes (%) (Auto) 3 % (24-48) Monocytes (%) (Auto) 6 % (0-9) Eosinophils (%) (Auto) 0 % (0-3) Basophils (%) (Auto) 0 % (0-3) Neutrophils # (Auto) 26.0 x10^3uL (1.8-7.7) Lymphocytes # (Auto) 0.7 x10^3/uL (1.0-4.8) Monocytes # (Auto) 1.6 x10^3/uL (0.0-1.1) Eosinophils # (Auto) 0.0 x10^3/uL (0.0-0.7) Basophils # (Auto) 0.1 x10^3/uL (0.0-0.2) Prothrombin Time 28.8 SEC (11.7-14.0) Prothromb Time International Ratio 2.9 (0.8-1.1) Test 10/23/16 16:25 White Blood Count 24.6 x10^3/uL (4.0-11.0) Red Blood Count 2.67 x10^6/uL (4.30-5.70) Hemoglobin 7.8 g/dL (13.0-17.5) Hematocrit 23.6 % (39.0-53.0) Mean Corpuscular Volume 89 fL (79-100) Mean Corpuscular Hemoglobin 29 pg (25-35) Mean Corpuscular Hemoglobin Concent 33 g/dL (31-37) Red Cell Distribution Width 17.0 % (11.5-14.5) Platelet Count 269 x10^3/uL (140-400) Microbiology 10/22/16 Blood Culture - Preliminary, Resulted NO GROWTH AFTER 1 DAY Medications Current Medications Fentanyl Citrate (Fentanyl 2ml Vial) 25 mcg PRN Q15MIN PRN IV PAIN GREATER THAN 3/10; Start 10/22/16 at 06:30; Stop 10/23/16 at 06:29; Status DC Pantoprazole Sodium 80 mg/ Sodium Chloride 100 ml @ 10 mls/hr Q10H IV Last administered on 10/23/16 01:30; Start 10/22/16 at 07:00; Stop 10/23/16 at 15:46 ; Status DC Pantoprazole Sodium (Protonix Vial) 80 mg 1X ONCE IVP Last administered on 06:52; Start 10/22/16 at 07:00; Stop 10/22/16 at 07:01; Status DC Octreotide Acetate 500 mcg/ Sodium Chloride 101 ml @ 0 mls/hr CONT PRN IV SEE I /O RECORD Last administered on 10/22/16 06:55; Start 10/22/16 at 07:00 Octreotide Acetate (SandoSTATIN) 100 mcg 1X ONCE IV Last administered on 06:52; Start 10/22/16 at 07:00; Stop 10/22/16 at 07:01; Status DC Metoclopramide HCl (Reglan) 10 mg 1X ONCE IV Last administered on 10/22/16 06 :51; Start 10/22/16 at 07:00; Stop 10/22/16 at 07:01; Status DC Ondansetron HCl (Zofran) 4 mg 1X ONCE IV Last administered on 10/22/16 06:51 ; Start 10/22/16 at 07:00; Stop 10/22/16 at 07:01; Status DC Iohexol (Omnipaque 300 Mg/ml) 75 ml 1X ONCE IV ; Start 10/22/16 at 07:00; Stop 10/22/16 at 07:01; Status DC Info (Do NOT chart on this entry -- for MONITORING) 1 each PRN DAILY PRN MC SEE COMMENTS; Start 10/22/16 at 06:45; Stop 10/23/16 at 07:26; Status DC Iohexol (Omnipaque 350 Mg/ml) 90 ml 1X ONCE IV Last administered on 10/22/16 07:34; Start 10/22/16 at 07:00; Stop 10/22/16 at 07:01; Status DC Info (Do NOT chart on this entry -- for MONITORING) 1 each PRN DAILY PRN MC SEE COMMENTS; Start 10/22/16 at 07:00; Stop 10/24/16 at 06:59 Furosemide (Lasix) 40 mg 1X PRN PRN IV blood transfusion; Start 10/22/16 at 07: 45; Stop 10/23/16 at 07:44; Status DC Phytonadione (Mephyton) 10 mg 1X ONCE PO Last administered on 10/22/16 09:18 ; Start 10/22/16 at 09:15; Stop 10/22/16 at 09:16; Status DC Fentanyl Citrate (Fentanyl 2ml Vial) 50 mcg PRN Q2HR PRN IV PAIN Last administered on 10/22/16 20:52; Start 10/22/16 at 09:45; Stop 10/23/16 at 09:44 ; Status DC Acetaminophen (Tylenol) 650 mg PRN Q4HRS PRN PO FEVER; Start 10/22/16 at 09:45 ; Stop 10/23/16 at 09:44; Status DC Insulin Aspart (NovoLOG) 0-5 UNITS TIDWMEALS SQ ; Start 10/22/16 at 12:00 Dextrose (Dextrose 50%-Water Syringe) 12.5 gm PRN Q15MIN PRN IV SEE COMMENTS; Start 10/22/16 at 09:45; Stop 10/22/16 at 12:42; Status DC Norepinephrine Bitartrate 250 ml @ As Directed STK-MED ONCE IV ; Start at 11:03; Stop 10/22/16 at 11:04; Status DC Norepinephrine Bitartrate 250 ml @ 0 mls/hr CONT PRN IV SEE I/O RECORD Last administered on 10/22/16 11:11; Start 10/22/16 at 11:15 Vancomycin HCl 2 gm/Sodium Chloride 500 ml @ 250 mls/hr 1X ONCE IV Last administered on 10/22/16 18:28; Start 10/22/16 at 11:30; Stop 10/22/16 at 13:29 ; Status DC Piperacillin Sod/ Tazobactam Sod 2.25 gm/Sodium Chloride 50 ml @ 100 mls/hr Q8HRS IV Last administered on 10/23/16 06:06; Start 10/22/16 at 12:00 Piperacillin Sod/ Tazobactam Sod (Zosyn Per Pharmacy) 1 each PRN DAILY PRN MC SEE COMMENTS; Start 10/22/16 at 11:30 Insulin Aspart (NovoLOG) 0-7 UNITS TIDWMEALS SQ ; Start 10/22/16 at 12:00 Dextrose (Dextrose 50%-Water Syringe) 12.5 gm PRN Q15MIN PRN IV SEE COMMENTS; Start 10/22/16 at 11:45 Darbepoetin Noel (Aranesp) 60 mcg 1X ONCE SQ Last administered on 10/22/16 15 :48; Start 10/22/16 at 13:00; Stop 10/22/16 at 13:01; Status DC Sodium Chloride 1,000 ml @ 1,000 mls/hr Q1H PRN IV hypotension; Start 10/22/16 at 15:04; Stop 10/22/16 at 21:03; Status DC Albumin Human 200 ml @ 200 mls/hr 1X PRN PRN IV Hypotension; Start 10/22/16 at 15:15; Stop 10/22/16 at 21:14; Status DC Sodium Chloride 1,000 ml @ 400 mls/hr Q2H30M PRN IV PATENCY; Start 10/22/16 at 15:04; Stop 10/23/16 at 03:03; Status DC Info (PHARMACY MONITORING -- do not chart) 1 each PRN DAILY PRN MC SEE COMMENTS ; Start 10/22/16 at 15:15; Status UNV Info (PHARMACY MONITORING -- do not chart) 1 each PRN DAILY PRN MC SEE COMMENTS ; Start 10/22/16 at 15:15 Sodium Chloride 1,000 ml @ 30 mls/hr Q24H IV ; Start 10/23/16 at 11:30 Nystatin (Nystop) 1 leana BID TP Last administered on 10/23/16 13:14; Start at 22:00 Fentanyl Citrate (Fentanyl 2ml Vial) 25 mcg PRN Q2HR PRN IV SEVERE PAIN Last administered on 10/23/16 14:27; Start 10/22/16 at 21:15 Mupirocin (Bactroban) 1 leana BID NS Last administered on 10/23/16 13:14; Start 10/23/16 at 09:00 Ondansetron HCl (Zofran) 4 mg PRN Q6HRS PRN IV NAUSEA/VOMITING Last administered on 10/23/16 13:12; Start 10/23/16 at 07:30 Etomidate (Amidate) 20 mg STK-MED ONCE IV ; Start 10/23/16 at 15:03; Stop at 15:04; Status DC Propofol 20 ml @ As Directed STK-MED ONCE IV ; Start 10/23/16 at 15:03; Stop at 15:04; Status DC Pantoprazole Sodium (Protonix) 40 mg BIDAC PO ; Start 10/23/16 at 16:30 Active Scripts Active Senna-Time S Tablet (Sennosides/Docusate Sodium) 1 Each Tablet 2 Tab PO PRN DAILY PRN Novolog Flexpen (Insulin Aspart) 300 Units/3 Ml Insuln.pen 0 Units SQ TIDWMEALS Reported Sapphire-Sara Tablet (Folic Acid/Vitamin B Comp W-C) 0.8 Mg Tablet 0.8 Mg PO Alprazolam 1 Mg Tablet 1 Tab PO TID Hydrocodone-Apap 5-325 (Hydrocodone Bit/Acetaminophen) 1 Each Tablet 1 Tab PO PRN Q8HRS PRN Warfarin Sodium 2 Mg Tablet 1 Tab PO DAILY Actos (Pioglitazone Hcl) 45 Mg Tablet 1 Tab PO DAILY Reglan (Metoclopramide Hcl) 10 Mg Tablet 10 Mg PO QIDACHS Lomotil Tablet (Diphenoxylate Hcl/Atropine) 1 Each Tablet 1 Tab PO QID PRN Sulfamethoxazole-Tmp Ds Tablet (Sulfamethoxazole/Trimethoprim) 1 Each Tablet 1 Tab PO BID Ramipril 10 Mg Capsule 5 Mg PO DAILY Tums (Calcium Carbonate) 300 Mg Tab.chew 300 Mg PO TIDAC Warfarin Sodium 4 Mg Tablet 5 Mg PO DAILY Escitalopram Oxalate 10 Mg Tablet 40 Tab PO DAILY Atorvastatin Calcium 20 Mg Tablet 40 Mg PO DAILY Vitals/I & O Vital Sign - Last 24 Hours 10/22/16 10/22/16 10/22/16 10/22/16 17:00 17:24 18:00 19:00 Temp 99.3 99.3 Pulse 87 68 64 Resp 16 12 B/P (MAP) 150/64 (92) 131/62 (85) 97/44 (61) Pulse Ox 100 100 100 100 O2 Delivery Nasal Cannula Nasal Cannula Nasal Cannula Nasal Cannula O2 Flow Rate 3.0 3.0 3.0 3.0 10/22/16 10/22/16 10/22/16 10/22/16 20:00 20:00 20:52 21:00 Temp 98.7 98.7 Pulse 66 64 Resp 16 B/P (MAP) 90/48 (62) 86/43 (57) Pulse Ox 100 100 100 O2 Delivery Nasal Cannula Nasal Cannula Nasal Cannula Nasal Cannula O2 Flow Rate 3.0 3.0 3.0 3.0 10/22/16 10/22/16 10/22/16 10/22/16 21:22 22:00 22:53 23:00 Temp 98.7 98.7 Pulse 62 63 64 Resp 16 24 B/P (MAP) 82/44 (57) 67/30 87/53 (64) Pulse Ox 100 100 100 O2 Delivery Nasal Cannula Nasal Cannula Nasal Cannula O2 Flow Rate 3.0 3.0 3.0 10/22/16 10/23/16 10/23/16 10/23/16 23:59 00:00 01:00 01:45 Temp 99.0 99.0 99.0 99.0 Pulse 65 65 68 Resp 16 16 16 B/P (MAP) 92/47 (62) 92/48 (63) 92/48 Pulse Ox 100 100 O2 Delivery Nasal Cannula Nasal Cannula Nasal Cannula O2 Flow Rate 3.0 3.0 3.0 5/10/23/16 10/23/16 10/23/16 02:00 03:00 04:00 04:00 Temp 98.9 98.9 Pulse 65 56 70 Resp 16 16 16 B/P (MAP) 108/45 (66) 86/49 (61) 87/49 (62) Pulse Ox 100 95 95 O2 Delivery Nasal Cannula Nasal Cannula Nasal Cannula Nasal Cannula O2 Flow Rate 3.0 3.0 3.0 3.0 10/23/16 10/23/16 10/23/16 10/23/16 05:00 06:00 14:24 14:27 Temp 98.4 98.4 Pulse 60 77 62 Resp 16 16 18 B/P (MAP) 90/46 (61) 80/48 (59) 93/44 Pulse Ox 99 99 99 O2 Delivery Nasal Cannula Nasal Cannula Nasal Cannula O2 Flow Rate 3.0 3.0 3.0 10/23/16 10/23/16 10/23/16 10/23/16 14:39 14:52 14:57 15:19 Temp 98.3 99.1 98.3 99.1 Pulse 60 59 Resp 20 20 B/P (MAP) 110/46 112/52 Pulse Ox 97 O2 Delivery Nasal Cannula Nasal Cannula O2 Flow Rate 3.0 3.0 10/23/16 10/23/16 10/23/16 15:20 15:35 15:39 Temp 99.4 99.4 99.4 99.4 Pulse 66 67 70 Resp 20 20 20 B/P (MAP) 91/31 124/56 Pulse Ox 99 96 97 O2 Delivery Nasal Cannula Intake and Output 10/22/16 10/22/16 10/23/16 15:00 23:00 07:00 Intake Total 360 ml 1542 ml Output Total 0 ml 0 ml 0 ml Balance 360 ml 0 ml 1542 ml JARON RAMOS MD October 23, 2016 16:40
[2016-10-23] MEDS: PANTOPRAZOLE 40 MG TABLET.DR. PO SCH (18:01)
[2016-10-23] MEDS: ALPRAZolam 1 MG TABLET PO SCH (21:20)
[2016-10-24] VITALS (19 sets, daily range): BP systolic 78–107; BP diastolic 44–69
[2016-10-24 05:38] LABS: BASO % 0 % (0-3); EOS % 1 % (0-3); HEMATOCRIT 24.1 % (39.0-53.0); HEMOGLOBIN 8.3 g/dL (13.0-17.5); LYMPH # 0.8 x10^3/uL (1.0-4.8); LYMPH % 4 % (24-48); MEAN CORPUSCULAR HEMOGLOBIN 31 pg (25-35); MEAN CORPUSCULAR HGB CONC 35 g/dL (31-37); MEAN CORPUSCULAR VOLUME 88 fL (79-100); MONO % 5 % (0-9); NEUT % 90 % (31-73); PLATELET COUNT 293 x10^3/uL (140-400); RED BLOOD COUNT 2.72 x10^6/uL (4.30-5.70); RED CELL DISTRIBUTION WIDTH 17.5 % (11.5-14.5)
[2016-10-24 05:52] LABS: CALCIUM 8.5 mg/dL (8.5-10.1); CREATININE 4.7 mg/dL (0.7-1.3); GFR 12.8; POTASSIUM 4.1 mmol/L (3.5-5.1)
[2016-10-24] MEDS: PIPERACILLIN/TAZOBACTAM 2.25 GM in IV NORMAL SALINE 50ML 50 ML IV SCH ×3 (05:59→22:10)
[2016-10-24] MEDS ORDERED: IV NORMAL SALINE 1000ML BAG 1,000 ML IV PRN ×2 (07:23)
[2016-10-24] MEDS ORDERED: DIALYSIS PATIENT. MC PRN (07:30)
[2016-10-24] MEDS: INSULIN ASPART 300 UNITS/3 ML INSULN.PEN SQ SCH ×4 (07:47→17:25)
[2016-10-24 07:56] LABS: % BASOS 1 % (0-3); ANISOCYTOSIS PRESENT; PLT ESTIMATE ADEQUATE (ADEQUATE)
[2016-10-24 07:57] LABS: POIKILOCYTOSIS PRESENT
--- NOTE | 2016-10-24 08:20 | PDOC ---
G I PROGRESS NOTE Subjective No complaints. No melena, N or V. Tolerated clears. Objective No reports of any overt bleeding. Physical Exam Lungs clear. RRR Abdomen soft, not tender nor distended. Review of Relevant I have reviewed the following items maria teresa (where applicable) has been applied. Labs Laboratory Tests Test 10/22/16 11:15 10/22/16 11:50 10/22/16 15:00 10/22/16 18:37 Nasal Screen MRSA (PCR) Negative (Negative) Hemoglobin 8.1 g/dL (13.0-17.5) Lactic Acid Level 1.0 mmol/L (0.4-2.0) Glucose (Fingerstick) 111 mg/dL (70-99) Test 10/22/16 20:55 10/23/16 05:00 10/23/16 09:45 10/23/16 16:25 Hemoglobin 7.0 g/dL (13.0-17.5) 7.2 g/dL (13.0-17.5) 7.8 g/dL (13.0-17.5) Sodium Level 138 mmol/L (136-145) 136 mmol/L (136-145) Potassium Level 4.2 mmol/L (3.5-5.1) 4.7 mmol/L (3.5-5.1) Chloride Level 98 mmol/L (98-107) 97 mmol/L (98-107) Carbon Dioxide Level 25 mmol/L (21-32) 26 mmol/L (21-32) Anion Gap 15 (6-14) 13 (6-14) Blood Urea Nitrogen 57 mg/dL (8-26) 62 mg/dL (8-26) Creatinine 4.4 mg/dL (0.7-1.3) 4.7 mg/dL (0.7-1.3) Estimated GFR (Cockcroft-Gault) 13.8 12.8 Glucose Level 126 mg/dL (70-99) 165 mg/dL (70-99) Calcium Level 8.5 mg/dL (8.5-10.1) 8.8 mg/dL (8.5-10.1) Troponin I Quantitative 1.204 ng/mL (0.000-0.055) White Blood Count 28.4 x10^3/uL (4.0-11.0) 24.6 x10^3/uL (4.0-11.0) Red Blood Count 2.44 x10^6/uL (4.30-5.70) 2.67 x10^6/uL (4.30-5.70) Hematocrit 22.1 % (39.0-53.0) 23.6 % (39.0-53.0) Mean Corpuscular Volume 90 fL (79-100) 89 fL (79-100) Mean Corpuscular Hemoglobin 29 pg (25-35) 29 pg (25-35) Mean Corpuscular Hemoglobin Concent 33 g/dL (31-37) 33 g/dL (31-37) Red Cell Distribution Width 16.5 % (11.5-14.5) 17.0 % (11.5-14.5) Platelet Count 267 x10^3/uL (140-400) 269 x10^3/uL (140-400) Neutrophils (%) (Auto) 92 % (31-73) Lymphocytes (%) (Auto) 3 % (24-48) Monocytes (%) (Auto) 6 % (0-9) Eosinophils (%) (Auto) 0 % (0-3) Basophils (%) (Auto) 0 % (0-3) Neutrophils # (Auto) 26.0 x10^3uL (1.8-7.7) Lymphocytes # (Auto) 0.7 x10^3/uL (1.0-4.8) Monocytes # (Auto) 1.6 x10^3/uL (0.0-1.1) Eosinophils # (Auto) 0.0 x10^3/uL (0.0-0.7) Basophils # (Auto) 0.1 x10^3/uL (0.0-0.2) Prothrombin Time 28.8 SEC (11.7-14.0) Prothromb Time International Ratio 2.9 (0.8-1.1) Test 10/23/16 17:57 10/24/16 05:00 10/24/16 07:42 Glucose (Fingerstick) 134 mg/dL (70-99) 150 mg/dL (70-99) White Blood Count 21.0 x10^3/uL (4.0-11.0) Red Blood Count 2.72 x10^6/uL (4.30-5.70) Hemoglobin 8.3 g/dL (13.0-17.5) Hematocrit 24.1 % (39.0-53.0) Mean Corpuscular Volume 88 fL (79-100) Mean Corpuscular Hemoglobin 31 pg (25-35) Mean Corpuscular Hemoglobin Concent 35 g/dL (31-37) Red Cell Distribution Width 17.5 % (11.5-14.5) Platelet Count 293 x10^3/uL (140-400) Neutrophils (%) (Auto) 90 % (31-73) Lymphocytes (%) (Auto) 4 % (24-48) Monocytes (%) (Auto) 5 % (0-9) Eosinophils (%) (Auto) 1 % (0-3) Basophils (%) (Auto) 0 % (0-3) Neutrophils # (Auto) 18.8 x10^3uL (1.8-7.7) Lymphocytes # (Auto) 0.8 x10^3/uL (1.0-4.8) Monocytes # (Auto) 1.1 x10^3/uL (0.0-1.1) Eosinophils # (Auto) 0.3 x10^3/uL (0.0-0.7) Basophils # (Auto) 0.0 x10^3/uL (0.0-0.2) Segmented Neutrophils % 86 % (35-66) Band Neutrophils % 6 % (0-9) Lymphocytes % 6 % (24-48) Monocytes % 1 % (0-10) Basophils % 1 % (0-3) Platelet Estimate Adequate (ADEQUATE) Poikilocytosis Present Anisocytosis Present Sodium Level 135 mmol/L (136-145) Potassium Level 4.1 mmol/L (3.5-5.1) Chloride Level 96 mmol/L (98-107) Carbon Dioxide Level 27 mmol/L (21-32) Anion Gap 12 (6-14) Blood Urea Nitrogen 56 mg/dL (8-26) Creatinine 4.7 mg/dL (0.7-1.3) Estimated GFR (Cockcroft-Gault) 12.8 Glucose Level 148 mg/dL (70-99) Calcium Level 8.5 mg/dL (8.5-10.1) Laboratory Tests Test 10/23/16 09:45 10/23/16 16:25 10/23/16 17:57 10/24/16 05:00 Prothrombin Time 28.8 SEC (11.7-14.0) Prothromb Time International Ratio 2.9 (0.8-1.1) White Blood Count 24.6 x10^3/uL (4.0-11.0) 21.0 x10^3/uL (4.0-11.0) Red Blood Count 2.67 x10^6/uL (4.30-5.70) 2.72 x10^6/uL (4.30-5.70) Hemoglobin 7.8 g/dL (13.0-17.5) 8.3 g/dL (13.0-17.5) Hematocrit 23.6 % (39.0-53.0) 24.1 % (39.0-53.0) Mean Corpuscular Volume 89 fL (79-100) 88 fL (79-100) Mean Corpuscular Hemoglobin 29 pg (25-35) 31 pg (25-35) Mean Corpuscular Hemoglobin Concent 33 g/dL (31-37) 35 g/dL (31-37) Red Cell Distribution Width 17.0 % (11.5-14.5) 17.5 % (11.5-14.5) Platelet Count 269 x10^3/uL (140-400) 293 x10^3/uL (140-400) Glucose (Fingerstick) 134 mg/dL (70-99) Neutrophils (%) (Auto) 90 % (31-73) Lymphocytes (%) (Auto) 4 % (24-48) Monocytes (%) (Auto) 5 % (0-9) Eosinophils (%) (Auto) 1 % (0-3) Basophils (%) (Auto) 0 % (0-3) Neutrophils # (Auto) 18.8 x10^3uL (1.8-7.7) Lymphocytes # (Auto) 0.8 x10^3/uL (1.0-4.8) Monocytes # (Auto) 1.1 x10^3/uL (0.0-1.1) Eosinophils # (Auto) 0.3 x10^3/uL (0.0-0.7) Basophils # (Auto) 0.0 x10^3/uL (0.0-0.2) Segmented Neutrophils % 86 % (35-66) Band Neutrophils % 6 % (0-9) Lymphocytes % 6 % (24-48) Monocytes % 1 % (0-10) Basophils % 1 % (0-3) Platelet Estimate Adequate (ADEQUATE) Poikilocytosis Present Anisocytosis Present Sodium Level 135 mmol/L (136-145) Potassium Level 4.1 mmol/L (3.5-5.1) Chloride Level 96 mmol/L (98-107) Carbon Dioxide Level 27 mmol/L (21-32) Anion Gap 12 (6-14) Blood Urea Nitrogen 56 mg/dL (8-26) Creatinine 4.7 mg/dL (0.7-1.3) Estimated GFR (Cockcroft-Gault) 12.8 Glucose Level 148 mg/dL (70-99) Calcium Level 8.5 mg/dL (8.5-10.1) Test 10/24/16 07:42 Glucose (Fingerstick) 150 mg/dL (70-99) Microbiology 10/22/16 Blood Culture - Preliminary, Resulted NO GROWTH AFTER 1 DAY Hemoglobin stable overnight. Medications Current Medications Fentanyl Citrate (Fentanyl 2ml Vial) 25 mcg PRN Q15MIN PRN IV PAIN GREATER THAN 3/10; Start 10/22/16 at 06:30; Stop 10/23/16 at 06:29; Status DC Pantoprazole Sodium 80 mg/ Sodium Chloride 100 ml @ 10 mls/hr Q10H IV Last administered on 10/23/16 01:30; Start 10/22/16 at 07:00; Stop 10/23/16 at 15:46 ; Status DC Pantoprazole Sodium (Protonix Vial) 80 mg 1X ONCE IVP Last administered on 06:52; Start 10/22/16 at 07:00; Stop 10/22/16 at 07:01; Status DC Octreotide Acetate 500 mcg/ Sodium Chloride 101 ml @ 0 mls/hr CONT PRN IV SEE I /O RECORD Last administered on 10/22/16 06:55; Start 10/22/16 at 07:00 Octreotide Acetate (SandoSTATIN) 100 mcg 1X ONCE IV Last administered on 06:52; Start 10/22/16 at 07:00; Stop 10/22/16 at 07:01; Status DC Metoclopramide HCl (Reglan) 10 mg 1X ONCE IV Last administered on 10/22/16 06 :51; Start 10/22/16 at 07:00; Stop 10/22/16 at 07:01; Status DC Ondansetron HCl (Zofran) 4 mg 1X ONCE IV Last administered on 10/22/16 06:51 ; Start 10/22/16 at 07:00; Stop 10/22/16 at 07:01; Status DC Iohexol (Omnipaque 300 Mg/ml) 75 ml 1X ONCE IV ; Start 10/22/16 at 07:00; Stop 10/22/16 at 07:01; Status DC Info (Do NOT chart on this entry -- for MONITORING) 1 each PRN DAILY PRN MC SEE COMMENTS; Start 10/22/16 at 06:45; Stop 10/23/16 at 07:26; Status DC Iohexol (Omnipaque 350 Mg/ml) 90 ml 1X ONCE IV Last administered on 10/22/16 07:34; Start 10/22/16 at 07:00; Stop 10/22/16 at 07:01; Status DC Info (Do NOT chart on this entry -- for MONITORING) 1 each PRN DAILY PRN MC SEE COMMENTS; Start 10/22/16 at 07:00; Stop 10/24/16 at 06:59; Status DC Furosemide (Lasix) 40 mg 1X PRN PRN IV blood transfusion; Start 10/22/16 at 07: 45; Stop 10/23/16 at 07:44; Status DC Phytonadione (Mephyton) 10 mg 1X ONCE PO Last administered on 10/22/16 09:18 ; Start 10/22/16 at 09:15; Stop 10/22/16 at 09:16; Status DC Fentanyl Citrate (Fentanyl 2ml Vial) 50 mcg PRN Q2HR PRN IV PAIN Last administered on 10/22/16 20:52; Start 10/22/16 at 09:45; Stop 10/23/16 at 09:44 ; Status DC Acetaminophen (Tylenol) 650 mg PRN Q4HRS PRN PO FEVER; Start 10/22/16 at 09:45 ; Stop 10/23/16 at 09:44; Status DC Insulin Aspart (NovoLOG) 0-5 UNITS TIDWMEALS SQ ; Start 10/22/16 at 12:00 Dextrose (Dextrose 50%-Water Syringe) 12.5 gm PRN Q15MIN PRN IV SEE COMMENTS; Start 10/22/16 at 09:45; Stop 10/22/16 at 12:42; Status DC Norepinephrine Bitartrate 250 ml @ As Directed STK-MED ONCE IV ; Start at 11:03; Stop 10/22/16 at 11:04; Status DC Norepinephrine Bitartrate 250 ml @ 0 mls/hr CONT PRN IV SEE I/O RECORD Last administered on 10/22/16 11:11; Start 10/22/16 at 11:15 Vancomycin HCl 2 gm/Sodium Chloride 500 ml @ 250 mls/hr 1X ONCE IV Last administered on 10/22/16 18:28; Start 10/22/16 at 11:30; Stop 10/22/16 at 13:29 ; Status DC Piperacillin Sod/ Tazobactam Sod 2.25 gm/Sodium Chloride 50 ml @ 100 mls/hr Q8HRS IV Last administered on 10/24/16 05:59; Start 10/22/16 at 12:00 Piperacillin Sod/ Tazobactam Sod (Zosyn Per Pharmacy) 1 each PRN DAILY PRN MC SEE COMMENTS; Start 10/22/16 at 11:30 Insulin Aspart (NovoLOG) 0-7 UNITS TIDWMEALS SQ ; Start 10/22/16 at 12:00 Dextrose (Dextrose 50%-Water Syringe) 12.5 gm PRN Q15MIN PRN IV SEE COMMENTS; Start 10/22/16 at 11:45 Darbepoetin Noel (Aranesp) 60 mcg 1X ONCE SQ Last administered on 10/22/16 15 :48; Start 10/22/16 at 13:00; Stop 10/22/16 at 13:01; Status DC Sodium Chloride 1,000 ml @ 1,000 mls/hr Q1H PRN IV hypotension; Start 10/22/16 at 15:04; Stop 10/22/16 at 21:03; Status DC Albumin Human 200 ml @ 200 mls/hr 1X PRN PRN IV Hypotension; Start 10/22/16 at 15:15; Stop 10/22/16 at 21:14; Status DC Sodium Chloride 1,000 ml @ 400 mls/hr Q2H30M PRN IV PATENCY; Start 10/22/16 at 15:04; Stop 10/23/16 at 03:03; Status DC Info (PHARMACY MONITORING -- do not chart) 1 each PRN DAILY PRN MC SEE COMMENTS ; Start 10/22/16 at 15:15; Status UNV Info (PHARMACY MONITORING -- do not chart) 1 each PRN DAILY PRN MC SEE COMMENTS ; Start 10/22/16 at 15:15 Sodium Chloride 1,000 ml @ 30 mls/hr Q24H IV ; Start 10/23/16 at 11:30 Nystatin (Nystop) 1 leana BID TP Last administered on 10/23/16 21:20; Start at 22:00 Fentanyl Citrate (Fentanyl 2ml Vial) 25 mcg PRN Q2HR PRN IV SEVERE PAIN Last administered on 10/23/16 19:06; Start 10/22/16 at 21:15 Mupirocin (Bactroban) 1 leana BID NS Last administered on 10/23/16 21:21; Start 10/23/16 at 09:00 Ondansetron HCl (Zofran) 4 mg PRN Q6HRS PRN IV NAUSEA/VOMITING Last administered on 10/23/16 13:12; Start 10/23/16 at 07:30 Etomidate (Amidate) 20 mg STK-MED ONCE IV ; Start 10/23/16 at 15:03; Stop at 15:04; Status DC Propofol 20 ml @ As Directed STK-MED ONCE IV ; Start 10/23/16 at 15:03; Stop at 15:04; Status DC Pantoprazole Sodium (Protonix) 40 mg BIDAC PO Last administered on 10/23/16 18 :01; Start 10/23/16 at 16:30 Alprazolam (Xanax) 1 mg TID PO Last administered on 10/23/16 21:20; Start at 21:00 Sodium Chloride 1,000 ml @ 1,000 mls/hr Q1H PRN IV hypotension; Start 10/24/16 at 07:23; Stop 10/24/16 at 13:22 Sodium Chloride 1,000 ml @ 400 mls/hr Q2H30M PRN IV PATENCY; Start 10/24/16 at 07:23; Stop 10/24/16 at 19:22 Info (PHARMACY MONITORING -- do not chart) 1 each PRN DAILY PRN MC SEE COMMENTS ; Start 10/24/16 at 07:30 Active Scripts Active Senna-Time S Tablet (Sennosides/Docusate Sodium) 1 Each Tablet 2 Tab PO PRN DAILY PRN Novolog Flexpen (Insulin Aspart) 300 Units/3 Ml Insuln.pen 0 Units SQ TIDWMEALS Reported Sapphire-Sara Tablet (Folic Acid/Vitamin B Comp W-C) 0.8 Mg Tablet 0.8 Mg PO Alprazolam 1 Mg Tablet 1 Tab PO TID Hydrocodone-Apap 5-325 (Hydrocodone Bit/Acetaminophen) 1 Each Tablet 1 Tab PO PRN Q8HRS PRN Warfarin Sodium 2 Mg Tablet 1 Tab PO DAILY Actos (Pioglitazone Hcl) 45 Mg Tablet 1 Tab PO DAILY Reglan (Metoclopramide Hcl) 10 Mg Tablet 10 Mg PO QIDACHS Lomotil Tablet (Diphenoxylate Hcl/Atropine) 1 Each Tablet 1 Tab PO QID PRN Sulfamethoxazole-Tmp Ds Tablet (Sulfamethoxazole/Trimethoprim) 1 Each Tablet 1 Tab PO BID Ramipril 10 Mg Capsule 5 Mg PO DAILY Tums (Calcium Carbonate) 300 Mg Tab.chew 300 Mg PO TIDAC Warfarin Sodium 4 Mg Tablet 5 Mg PO DAILY Escitalopram Oxalate 10 Mg Tablet 40 Tab PO DAILY Atorvastatin Calcium 20 Mg Tablet 40 Mg PO DAILY Vitals/I & O Vital Sign - Last 24 Hours 10/23/16 10/23/16 10/23/16 10/23/16 09:00 10:00 11:00 12:00 Pulse 77 77 77 77 Resp 16 16 16 16 B/P (MAP) 80/48 (59) 76/37 (50) 81/39 (53) 99/48 (65) Pulse Ox 99 99 99 99 O2 Delivery Nasal Cannula Nasal Cannula Nasal Cannula Nasal Cannula O2 Flow Rate 3.0 3.0 3.0 3.0 10/23/16 10/23/16 10/23/16 10/23/16 13:00 14:00 14:24 14:27 Temp 98.4 98.4 Pulse 77 77 62 Resp 16 16 18 B/P (MAP) 93/44 (60) 115/51 (72) 93/44 Pulse Ox 99 99 99 O2 Delivery Nasal Cannula Nasal Cannula Nasal Cannula O2 Flow Rate 3.0 3.0 3.0 10/23/16 10/23/16 10/23/16 10/23/16 14:39 14:52 15:00 15:19 Temp 98.3 99.1 98.3 99.1 Pulse 60 59 77 Resp 20 20 16 B/P (MAP) 110/46 112/52 92/45 (61) Pulse Ox 99 O2 Delivery Nasal Cannula Nasal Cannula O2 Flow Rate 3.0 3.0 10/23/16 10/23/16 10/23/16 10/23/16 15:20 15:35 15:39 16:00 Temp 99.4 99.4 99.4 99.4 Pulse 66 67 70 77 Resp 20 20 20 16 B/P (MAP) 91/31 124/56 121/54 (76) Pulse Ox 99 96 97 99 O2 Delivery Nasal Cannula Nasal Cannula O2 Flow Rate 3.0 10/23/16 10/23/16 10/23/16 10/23/16 17:00 18:00 19:00 19:06 Temp 99.5 99.5 Pulse 77 77 65 Resp 16 16 16 16 B/P (MAP) 80/48 (59) 134/56 (82) 104/53 (70) Pulse Ox 99 99 100 O2 Delivery Nasal Cannula Nasal Cannula Nasal Cannula O2 Flow Rate 3.0 3.0 3.0 3.0 10/23/16 10/23/16 10/23/16 10/23/16 19:36 20:00 20:00 21:00 Temp 98.9 98.9 Pulse 60 60 Resp 12 16 12 B/P (MAP) 87/40 (56) 82/41 (55) Pulse Ox 99 99 99 O2 Delivery Nasal Cannula Nasal Cannula Nasal Cannula Nasal Cannula O2 Flow Rate 3.0 3.0 3.0 3.0 10/23/16 10/23/16 10/24/16 10/24/16 22:00 23:00 00:00 00:00 Pulse 58 60 62 Resp 19 12 19 B/P (MAP) 93/47 (62) 86/47 (60) 87/44 (58) Pulse Ox 100 98 96 O2 Delivery Nasal Cannula Nasal Cannula Nasal Cannula Nasal Cannula O2 Flow Rate 3.0 3.0 3.0 3.0 10/24/16 10/24/16 10/24/16 10/24/16 01:00 02:00 03:00 04:00 Temp 98.4 98.4 Pulse 60 58 56 56 Resp 20 20 19 19 B/P (MAP) 87/48 (61) 83/48 (60) 84/47 (59) 95/46 (62) Pulse Ox 97 98 99 99 O2 Delivery Nasal Cannula Nasal Cannula Nasal Cannula Nasal Cannula O2 Flow Rate 3.0 3.0 3.0 3.0 10/24/16 10/24/16 10/24/16 04:00 05:00 06:00 Pulse 56 57 Resp 22 19 B/P (MAP) 83/49 (60) 92/51 (65) Pulse Ox 99 99 O2 Delivery Nasal Cannula Nasal Cannula Nasal Cannula O2 Flow Rate 3.0 3.0 3.0 Intake and Output 10/23/16 10/23/16 10/24/16 15:00 23:00 07:00 Intake Total 350 ml 600 ml Output Total 0 ml Balance 350 ml 0 ml 600 ml Assessment Hematemesis, resolved. NSAID DU suspect; likely in area not well seen with endoscopy. Plan of Care: Continue current Tx, Mgmt Plan of Care Note OK to advance diet cautiously and consider out of ICU. Would give BID PPI here and once daily at home for 3-4 weeks; chronic Rx if continues NSAID use, though advised to go back to narcotics for pain. GURWINDER ESTEVEZ MD October 24, 2016 08:20
[2016-10-24] MEDS: ALPRAZolam 1 MG TABLET PO SCH ×3 (09:00→20:48)
--- NOTE | 2016-10-24 09:40 | PDOC ---
Infectious Disease Note Subjective Subjective Comfortable, denies pain No fever last 24 hours Runny stools yesterday, no BM so far today On supplemental O2 at 3LNC. SpO2 100% ROS ROS Denies chills, aches or sweats Denies SOA or cough Denies N/V Vital Sign Vital Signs Vital Signs Date Time Temp Pulse Resp B/P (MAP) Pulse Ox O2 Delivery O2 Flow Rate FiO2 10/24/16 09:00 58 22 98/55 (69) 100 Nasal Cannula 3.0 10/24/16 08:00 98.3 98.3 Physical Exam PHYSICAL EXAM GENERAL: Alert, dialyzing, relaxed appearance HEENT: PERRL, OC/OP pink and dry LUNGS: Clear HEART: S1S2 ABD: BS present, soft, NT EXT: No edema, no cyanosis. Right BKA-unremarkable. Wound left heel, bandaged. GERIATRICS PHYSICIAN: Alert, oriented x 3, no focal neurologic deficit SKIN: No rash Peripheral IVs. Labs Lab Laboratory Tests Test 10/23/16 09:45 10/23/16 16:25 10/23/16 17:57 10/24/16 05:00 Prothrombin Time 28.8 SEC (11.7-14.0) Prothromb Time International Ratio 2.9 (0.8-1.1) White Blood Count 24.6 x10^3/uL (4.0-11.0) 21.0 x10^3/uL (4.0-11.0) Red Blood Count 2.67 x10^6/uL (4.30-5.70) 2.72 x10^6/uL (4.30-5.70) Hemoglobin 7.8 g/dL (13.0-17.5) 8.3 g/dL (13.0-17.5) Hematocrit 23.6 % (39.0-53.0) 24.1 % (39.0-53.0) Mean Corpuscular Volume 89 fL (79-100) 88 fL (79-100) Mean Corpuscular Hemoglobin 29 pg (25-35) 31 pg (25-35) Mean Corpuscular Hemoglobin Concent 33 g/dL (31-37) 35 g/dL (31-37) Red Cell Distribution Width 17.0 % (11.5-14.5) 17.5 % (11.5-14.5) Platelet Count 269 x10^3/uL (140-400) 293 x10^3/uL (140-400) Glucose (Fingerstick) 134 mg/dL (70-99) Neutrophils (%) (Auto) 90 % (31-73) Lymphocytes (%) (Auto) 4 % (24-48) Monocytes (%) (Auto) 5 % (0-9) Eosinophils (%) (Auto) 1 % (0-3) Basophils (%) (Auto) 0 % (0-3) Neutrophils # (Auto) 18.8 x10^3uL (1.8-7.7) Lymphocytes # (Auto) 0.8 x10^3/uL (1.0-4.8) Monocytes # (Auto) 1.1 x10^3/uL (0.0-1.1) Eosinophils # (Auto) 0.3 x10^3/uL (0.0-0.7) Basophils # (Auto) 0.0 x10^3/uL (0.0-0.2) Segmented Neutrophils % 86 % (35-66) Band Neutrophils % 6 % (0-9) Lymphocytes % 6 % (24-48) Monocytes % 1 % (0-10) Basophils % 1 % (0-3) Platelet Estimate Adequate (ADEQUATE) Poikilocytosis Present Anisocytosis Present Sodium Level 135 mmol/L (136-145) Potassium Level 4.1 mmol/L (3.5-5.1) Chloride Level 96 mmol/L (98-107) Carbon Dioxide Level 27 mmol/L (21-32) Anion Gap 12 (6-14) Blood Urea Nitrogen 56 mg/dL (8-26) Creatinine 4.7 mg/dL (0.7-1.3) Estimated GFR (Cockcroft-Gault) 12.8 Glucose Level 148 mg/dL (70-99) Calcium Level 8.5 mg/dL (8.5-10.1) Test 10/24/16 07:42 Glucose (Fingerstick) 150 mg/dL (70-99) Micro BLOOD CULTURE Preliminary NO GROWTH AFTER 1 DAY Objective Assessment GI bleed Fever, better Leukocytosis, slowly trending down ESRD on HD DM Possible aspiration Lactic acidosis h/o MRSA Plan Plan of Care Zosyn vanc times one dose, 10/22 CXR in am f/u cultures supportive care D/w family Attending Co-Sign Attending Co-Sign The patient was seen and interviewed as well as examined at the bedside. The chart was reviewed. The case was discussed. Agree with the plan of care. MANUEL PEDROZA APRN October 24, 2016 09:40 THOMAS DANIELSON MD October 24, 2016 13:47
[2016-10-24 10:30] LABS: INR 1.6 (0.8-1.1); PROTHROMBIN TIME PATIENT 18.4 SEC (11.7-14.0)
--- NOTE | 2016-10-24 12:01 | PDOC ---
PROGRESS NOTES Subjective Subjective just done with dialysis Objective Objective Vital Signs Date Time Temp Pulse Resp B/P (MAP) Pulse Ox O2 Delivery O2 Flow Rate FiO2 10/24/16 11:00 66 22 105/52 (69) 100 Nasal Cannula 3.0 10/24/16 08:00 98.3 98.3 Intake and Output 10/24/16 07:00 Intake Total 950 ml Output Total 0 ml Balance 950 ml IV Total 600 ml Blood Product IV Normal Saline Flush 350 ml Output Urine Total 0 ml # Bowel Movements 3 Physical Exam Abdomen: Normal bowel sounds, Soft Heart: Other (irregularly irregular, S1-S2) Extremities: Other (status post amputation) General: Alert, Oriented X3, Cooperative HEENT: Atraumatic, PERRLA Lungs: Clear to auscultation MUSCULOSKELETAL: Other (LE AMP) Neuro: Normal speech Psych/Mental Status: Other (ANXIOUS AFFECT) Skin: No rashes, No breakdown, No significant lesion COMMENT Rt BKA Assessment Assessment FINAL IMPRESSION: 1. Acute gastrointestinal bleed, possible upper gastrointestinal source. 2. Leukocytosis with elevated temperature, possible aspiration pneumonia. 3. End-stage renal disease, on hemodialysis. 4. Chronic atrial fibrillation, on Coumadin. 5. Anemia secondary to acute gastrointestinal blood loss. 6. Diabetes, insulin-dependent. 7. Chronic systolic heart failure, stable. 8. Right [id number] amputation. 9. Stage 2 ulcer, left foot. 10 .sarika troponin ,?demand ischemia PLAN: transfer out of icu today transfuse prn, Hb 8.4 EGD no active bleeding lesions identified FFP and vit k .inr 1.6 today iv antibiotics for aspiration, wbc 18 trending down Dialysis today At this time, was admitted to hospital, was seen by Cardiology and also GI scheduled for EGD today.Octaride IV as well as IV Protonix drip and transfuse to keep hemoglobin between 8 and 10, checking the hemoglobin every 8 hours where he is given FFB and vitamin K. Dialyzed today and see how the patient's condition improves. Also, because of his aspiration pneumonia, was given a dose of vancomycin and Zosyn. ID is consulted. Problems: Comment Review of Relevant I have reviewed the following items maria teresa (where applicable) has been applied. Labs Laboratory Tests Test 10/23/16 16:25 10/23/16 17:57 10/24/16 05:00 10/24/16 07:42 White Blood Count 24.6 x10^3/uL (4.0-11.0) 21.0 x10^3/uL (4.0-11.0) Red Blood Count 2.67 x10^6/uL (4.30-5.70) 2.72 x10^6/uL (4.30-5.70) Hemoglobin 7.8 g/dL (13.0-17.5) 8.3 g/dL (13.0-17.5) Hematocrit 23.6 % (39.0-53.0) 24.1 % (39.0-53.0) Mean Corpuscular Volume 89 fL (79-100) 88 fL (79-100) Mean Corpuscular Hemoglobin 29 pg (25-35) 31 pg (25-35) Mean Corpuscular Hemoglobin Concent 33 g/dL (31-37) 35 g/dL (31-37) Red Cell Distribution Width 17.0 % (11.5-14.5) 17.5 % (11.5-14.5) Platelet Count 269 x10^3/uL (140-400) 293 x10^3/uL (140-400) Glucose (Fingerstick) 134 mg/dL (70-99) 150 mg/dL (70-99) Neutrophils (%) (Auto) 90 % (31-73) Lymphocytes (%) (Auto) 4 % (24-48) Monocytes (%) (Auto) 5 % (0-9) Eosinophils (%) (Auto) 1 % (0-3) Basophils (%) (Auto) 0 % (0-3) Neutrophils # (Auto) 18.8 x10^3uL (1.8-7.7) Lymphocytes # (Auto) 0.8 x10^3/uL (1.0-4.8) Monocytes # (Auto) 1.1 x10^3/uL (0.0-1.1) Eosinophils # (Auto) 0.3 x10^3/uL (0.0-0.7) Basophils # (Auto) 0.0 x10^3/uL (0.0-0.2) Segmented Neutrophils % 86 % (35-66) Band Neutrophils % 6 % (0-9) Lymphocytes % 6 % (24-48) Monocytes % 1 % (0-10) Basophils % 1 % (0-3) Platelet Estimate Adequate (ADEQUATE) Poikilocytosis Present Anisocytosis Present Sodium Level 135 mmol/L (136-145) Potassium Level 4.1 mmol/L (3.5-5.1) Chloride Level 96 mmol/L (98-107) Carbon Dioxide Level 27 mmol/L (21-32) Anion Gap 12 (6-14) Blood Urea Nitrogen 56 mg/dL (8-26) Creatinine 4.7 mg/dL (0.7-1.3) Estimated GFR (Cockcroft-Gault) 12.8 Glucose Level 148 mg/dL (70-99) Calcium Level 8.5 mg/dL (8.5-10.1) Test 10/24/16 10:00 10/24/16 11:29 Prothrombin Time 18.4 SEC (11.7-14.0) Prothromb Time International Ratio 1.6 (0.8-1.1) Glucose (Fingerstick) 107 mg/dL (70-99) Microbiology 10/22/16 Blood Culture - Preliminary, Resulted NO GROWTH AFTER 1 DAY Medications Current Medications Alprazolam (Xanax) 1 mg TID PO Last administered on 10/23/16 21:20; Start at 21:00 Etomidate (Amidate) 20 mg STK-MED ONCE IV ; Start 10/23/16 at 15:03; Stop at 15:04; Status DC Info (PHARMACY MONITORING -- do not chart) 1 each PRN DAILY PRN MC SEE COMMENTS ; Start 10/24/16 at 07:30; Status Cancel Pantoprazole Sodium (Protonix) 40 mg BIDAC PO Last administered on 10/23/16 18 :01; Start 10/23/16 at 16:30 Propofol 20 ml @ As Directed STK-MED ONCE IV ; Start 10/23/16 at 15:03; Stop at 15:04; Status DC Sodium Chloride 1,000 ml @ 400 mls/hr Q2H30M PRN IV PATENCY; Start 10/24/16 at 07:23; Stop 10/24/16 at 19:22 Sodium Chloride 1,000 ml @ 1,000 mls/hr Q1H PRN IV hypotension; Start 10/24/16 at 07:23; Stop 10/24/16 at 13:22 Vitals/I & O Vital Sign - Last 24 Hours 10/23/16 10/23/16 10/23/16 10/23/16 12:00 13:00 14:00 14:24 Temp 98.4 98.4 Pulse 77 77 77 62 Resp 16 16 16 18 B/P (MAP) 99/48 (65) 93/44 (60) 115/51 (72) 93/44 Pulse Ox 99 99 99 O2 Delivery Nasal Cannula Nasal Cannula Nasal Cannula O2 Flow Rate 3.0 3.0 3.0 10/23/16 10/23/16 10/23/16 10/23/16 14:27 14:39 14:52 15:00 Temp 98.3 99.1 98.3 99.1 Pulse 60 59 77 Resp 20 20 16 B/P (MAP) 110/46 112/52 92/45 (61) Pulse Ox 99 99 O2 Delivery Nasal Cannula Nasal Cannula O2 Flow Rate 3.0 3.0 10/23/16 10/23/16 10/23/16 10/23/16 15:19 15:20 15:35 15:39 Temp 99.4 99.4 99.4 99.4 Pulse 66 67 70 Resp 20 20 20 B/P (MAP) 91/31 124/56 Pulse Ox 99 96 97 O2 Delivery Nasal Cannula Nasal Cannula O2 Flow Rate 3.0 10/23/16 10/23/16 10/23/16 10/23/16 16:00 17:00 18:00 19:00 Temp 99.5 99.5 Pulse 77 77 77 65 Resp 16 16 16 16 B/P (MAP) 121/54 (76) 80/48 (59) 134/56 (82) 104/53 (70) Pulse Ox 99 99 99 100 O2 Delivery Nasal Cannula Nasal Cannula Nasal Cannula Nasal Cannula O2 Flow Rate 3.0 3.0 3.0 3.0 10/23/16 10/23/16 10/23/16 10/23/16 19:06 19:36 20:00 20:00 Temp 98.9 98.9 Pulse 60 Resp 16 12 16 B/P (MAP) 87/40 (56) Pulse Ox 99 99 O2 Delivery Nasal Cannula Nasal Cannula Nasal Cannula O2 Flow Rate 3.0 3.0 3.0 3.0 10/23/16 10/23/16 10/23/16 10/24/16 21:00 22:00 23:00 00:00 Pulse 60 58 60 62 Resp 12 19 12 19 B/P (MAP) 82/41 (55) 93/47 (62) 86/47 (60) 87/44 (58) Pulse Ox 99 100 98 96 O2 Delivery Nasal Cannula Nasal Cannula Nasal Cannula Nasal Cannula O2 Flow Rate 3.0 3.0 3.0 3.0 10/24/16 10/24/16 10/24/16 10/24/16 00:00 01:00 02:00 03:00 Pulse 60 58 56 Resp 20 20 19 B/P (MAP) 87/48 (61) 83/48 (60) 84/47 (59) Pulse Ox 97 98 99 O2 Delivery Nasal Cannula Nasal Cannula Nasal Cannula Nasal Cannula O2 Flow Rate 3.0 3.0 3.0 3.0 10/24/16 10/24/16 10/24/16 10/24/16 04:00 04:00 05:00 06:00 Temp 98.4 98.4 Pulse 56 56 57 Resp 19 22 19 B/P (MAP) 95/46 (62) 83/49 (60) 92/51 (65) Pulse Ox 99 99 99 O2 Delivery Nasal Cannula Nasal Cannula Nasal Cannula Nasal Cannula O2 Flow Rate 3.0 3.0 3.0 3.0 10/24/16 10/24/16 10/24/16 10/24/16 07:00 08:00 08:00 09:00 Temp 98.3 98.3 Pulse 60 55 58 Resp 16 20 22 B/P (MAP) 96/52 (67) 93/54 (67) 98/55 (69) Pulse Ox 100 100 100 O2 Delivery Nasal Cannula Nasal Cannula Nasal Cannula Nasal Cannula O2 Flow Rate 3.0 3.0 3.0 3.0 10/24/16 10/24/16 10:00 11:00 Pulse 60 66 Resp 14 22 B/P (MAP) 99/52 (68) 105/52 (69) Pulse Ox 100 100 O2 Delivery Nasal Cannula Nasal Cannula O2 Flow Rate 3.0 3.0 Intake and Output 10/23/16 10/23/16 10/24/16 15:00 23:00 07:00 Intake Total 350 ml 600 ml Output Total 0 ml Balance 350 ml 0 ml 600 ml RADHA MEYER MD October 24, 2016 12:01
[2016-10-24] MEDS: fentaNYL PF VIAL 100 MCG/2 ML VIAL IV PRN (12:16)
[2016-10-24] MEDS: PANTOPRAZOLE 40 MG TABLET.DR. PO SCH ×2 (12:16→17:22)
[2016-10-24] MEDS: MUPIROCIN 2 % NASAL OINTMENT 22GM TUBE. NS SCH ×2 (12:16→20:48)
[2016-10-24] MEDS: NYSTATIN TOPICAL POWDER 15GM BOTTLE. TP SCH ×2 (12:16→20:48)
[2016-10-24] MEDS: IV NORMAL SALINE 1000ML BAG 1,000 ML IV SCH ×2 (12:28→20:38)
--- NOTE | 2016-10-24 13:43 | PDOC ---
SUBJECTIVE ROS ESRD done with HD earlier today and vernell well CVS: no Orthopnea, no CP RESP: no SOB, no SHAH GI: no Nausea, no Vomiting : no Dysuria, no Urgency OBJECTIVE Vital Signs Vital Signs Date Time Temp Pulse Resp B/P (MAP) Pulse Ox O2 Delivery O2 Flow Rate FiO2 10/24/16 13:00 73 16 107/55 (72) 100 Nasal Cannula 3.0 10/24/16 12:00 98.0 98.0 I & 0 Intake and Output 10/24/16 07:00 Intake Total 950 ml Output Total 0 ml Balance 950 ml IV Total 600 ml Blood Product IV Normal Saline Flush 350 ml Output Urine Total 0 ml # Bowel Movements 3 PHYSICAL EXAM Physical Exam GEN: Awake, Oriented x 3, In no distress EYES: Vision Unchanged, Conjunctiva Normal EN: No EN Drainage, Mucous Membranes moist NECK: no JVD, min JVP, Supple, no Thyromegaly CVS: S1S2, + Murmur, No Gallop, No Rub,tr Edema RESP: no Rales, no Rhonchi,no Acc. 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 ANEMIA in CKD ; (wa felt to be due to GI Bleed) somewhat better after hemoconcentration; Aranesp as ordered, Transfuse with next HD as needed HyperPhosphatemia/ KAYLAH -cehck phos levels and alter binder regimen base on PO intake Discussed Plan of Care with family at bedside Problems: COMMENT/RELEVANT DATA Meds Current Medications Medications (Trade) Dose Ordered Sig/Nanette Start Time Stop Time Status Last Admin Dose Admin Acetaminophen (Tylenol) 650 mg PRN Q4HRS PRN 10/22/16 09:45 10/23/16 09:44 DC Albumin Human 200 ml @ 200 mls/hr 1X PRN PRN 10/22/16 15:15 10/22/16 21:14 DC Alprazolam (Xanax) 1 mg TID 10/23/16 21:00 10/24/16 12:15 1 MG Darbepoetin Noel (Aranesp) 60 mcg 1X ONCE 10/22/16 13:00 10/22/16 13:01 DC 10/22/16 15:48 60 MCG Dextrose (Dextrose 50%-Water Syringe) 12.5 gm PRN Q15MIN PRN 10/22/16 11:45 Etomidate (Amidate) 20 mg STK-MED ONCE 10/23/16 15:03 10/23/16 15:04 DC Fentanyl Citrate (Fentanyl 2ml Vial) 25 mcg PRN Q2HR PRN 10/22/16 21:15 10/24/16 12:16 25 MCG Furosemide (Lasix) 40 mg 1X PRN PRN 10/22/16 07:45 10/23/16 07:44 DC Info (Do NOT chart on this entry -- for MONITORING) 1 each PRN DAILY PRN 10/22/16 07:00 10/24/16 06:59 DC Info (PHARMACY MONITORING -- do not chart) 1 each PRN DAILY PRN 10/24/16 07:30 Cancel Insulin Aspart (NovoLOG) 0-7 UNITS TIDWMEALS 10/22/16 12:00 Iohexol (Omnipaque 300 Mg/ml) 75 ml 1X ONCE 10/22/16 07:00 10/22/16 07:01 DC Iohexol (Omnipaque 350 Mg/ml) 90 ml 1X ONCE 10/22/16 07:00 10/22/16 07:01 DC 10/22/16 07:34 90 ML Metoclopramide HCl (Reglan) 10 mg 1X ONCE 10/22/16 07:00 10/22/16 07:01 DC 10/22/16 06:51 10 MG Mupirocin (Bactroban) 1 leana BID 10/23/16 09:00 10/24/16 12:16 1 LEANA Norepinephrine Bitartrate 250 ml @ 0 mls/hr CONT PRN 10/22/16 11:15 10/22/16 11:11 18.75 MLS/HR Nystatin (Nystop) 1 leana BID 10/22/16 22:00 10/24/16 12:16 1 LEANA Octreotide Acetate 500 mcg/ Sodium Chloride 101 ml @ 0 mls/hr CONT PRN 10/22/16 07:00 10/22/16 06:55 10 MLS/HR Octreotide Acetate (SandoSTATIN) 100 mcg 1X ONCE 10/22/16 07:00 10/22/16 07:01 DC 10/22/16 06:52 100 MCG Ondansetron HCl (Zofran) 4 mg PRN Q6HRS PRN 10/23/16 07:30 10/23/16 13:12 4 MG Pantoprazole Sodium (Protonix Vial) 80 mg 1X ONCE 10/22/16 07:00 10/22/16 07:01 DC 10/22/16 06:52 80 MG Pantoprazole Sodium (Protonix) 40 mg BIDAC 10/23/16 16:30 10/24/16 12:16 40 MG Pantoprazole Sodium 80 mg/ Sodium Chloride 100 ml @ 10 mls/hr Q10H 10/22/16 07:00 10/23/16 15:46 DC 10/23/16 01:30 10 MLS/HR Phytonadione (Mephyton) 10 mg 1X ONCE 10/22/16 09:15 10/22/16 09:16 DC 10/22/16 09:18 10 MG Piperacillin Sod/ Tazobactam Sod (Zosyn Per Pharmacy) 1 each PRN DAILY PRN 10/22/16 11:30 Piperacillin Sod/ Tazobactam Sod 2.25 gm/Sodium Chloride 50 ml @ 100 mls/hr Q8HRS 10/22/16 12:00 10/24/16 05:59 100 MLS/HR Propofol 20 ml @ As Directed STK-MED ONCE 10/23/16 15:03 10/23/16 15:04 DC Sodium Chloride 1,000 ml @ 400 mls/hr Q2H30M PRN 10/24/16 07:23 10/24/16 19:22 Vancomycin HCl 2 gm/Sodium Chloride 500 ml @ 250 mls/hr 1X ONCE 10/22/16 11:30 10/22/16 13:29 DC 10/22/16 18:28 250 MLS/HR Warfarin Sodium (Coumadin Per Pharmacy) 1 each PRN DAILY PRN 10/24/16 12:00 10/24/16 12:15 1 EACH Warfarin Sodium (Coumadin) 3 mg 1X WARF ONCE 10/24/16 16:00 10/24/16 16:01 Lab Laboratory Tests Test 10/23/16 16:25 10/23/16 17:57 10/24/16 05:00 10/24/16 07:42 White Blood Count 24.6 x10^3/uL (4.0-11.0) 21.0 x10^3/uL (4.0-11.0) Red Blood Count 2.67 x10^6/uL (4.30-5.70) 2.72 x10^6/uL (4.30-5.70) Hemoglobin 7.8 g/dL (13.0-17.5) 8.3 g/dL (13.0-17.5) Hematocrit 23.6 % (39.0-53.0) 24.1 % (39.0-53.0) Mean Corpuscular Volume 89 fL (79-100) 88 fL (79-100) Mean Corpuscular Hemoglobin 29 pg (25-35) 31 pg (25-35) Mean Corpuscular Hemoglobin Concent 33 g/dL (31-37) 35 g/dL (31-37) Red Cell Distribution Width 17.0 % (11.5-14.5) 17.5 % (11.5-14.5) Platelet Count 269 x10^3/uL (140-400) 293 x10^3/uL (140-400) Glucose (Fingerstick) 134 mg/dL (70-99) 150 mg/dL (70-99) Neutrophils (%) (Auto) 90 % (31-73) Lymphocytes (%) (Auto) 4 % (24-48) Monocytes (%) (Auto) 5 % (0-9) Eosinophils (%) (Auto) 1 % (0-3) Basophils (%) (Auto) 0 % (0-3) Neutrophils # (Auto) 18.8 x10^3uL (1.8-7.7) Lymphocytes # (Auto) 0.8 x10^3/uL (1.0-4.8) Monocytes # (Auto) 1.1 x10^3/uL (0.0-1.1) Eosinophils # (Auto) 0.3 x10^3/uL (0.0-0.7) Basophils # (Auto) 0.0 x10^3/uL (0.0-0.2) Segmented Neutrophils % 86 % (35-66) Band Neutrophils % 6 % (0-9) Lymphocytes % 6 % (24-48) Monocytes % 1 % (0-10) Basophils % 1 % (0-3) Platelet Estimate Adequate (ADEQUATE) Poikilocytosis Present Anisocytosis Present Sodium Level 135 mmol/L (136-145) Potassium Level 4.1 mmol/L (3.5-5.1) Chloride Level 96 mmol/L (98-107) Carbon Dioxide Level 27 mmol/L (21-32) Anion Gap 12 (6-14) Blood Urea Nitrogen 56 mg/dL (8-26) Creatinine 4.7 mg/dL (0.7-1.3) Estimated GFR (Cockcroft-Gault) 12.8 Glucose Level 148 mg/dL (70-99) Calcium Level 8.5 mg/dL (8.5-10.1) Test 10/24/16 10:00 10/24/16 11:29 Prothrombin Time 18.4 SEC (11.7-14.0) Prothromb Time International Ratio 1.6 (0.8-1.1) Glucose (Fingerstick) 107 mg/dL (70-99) YUMIKO SCHAFER MD October 24, 2016 13:43
--- NOTE | 2016-10-24 14:46 | PDOC ---
PROGRESS NOTES Subjective Subjective The patient has no new complaints. He tolerated dialysis well. Presently the blood pressure is doing better. Objective Objective Vital Signs Date Time Temp Pulse Resp B/P (MAP) Pulse Ox O2 Delivery O2 Flow Rate FiO2 10/24/16 13:00 73 16 107/55 (72) 100 Nasal Cannula 3.0 10/24/16 12:00 98.0 98.0 Intake and Output 10/24/16 07:00 Intake Total 950 ml Output Total 0 ml Balance 950 ml IV Total 600 ml Blood Product IV Normal Saline Flush 350 ml Output Urine Total 0 ml # Bowel Movements 3 Physical Exam Physical Exam No significant changes in cardiac exam Assessment Assessment Patient appears to be compensated cardiac-vazquez. He usually has episodes of hypotension I would not recommend adding any drips for that on this patient. I agree with the present plan. Comment Review of Relevant I have reviewed the following items maria teresa (where applicable) has been applied. Labs Laboratory Tests Test 10/22/16 15:00 10/22/16 18:37 10/22/16 20:55 10/23/16 05:00 Lactic Acid Level 1.0 mmol/L (0.4-2.0) Glucose (Fingerstick) 111 mg/dL (70-99) Hemoglobin 7.0 g/dL (13.0-17.5) 7.2 g/dL (13.0-17.5) Sodium Level 138 mmol/L (136-145) 136 mmol/L (136-145) Potassium Level 4.2 mmol/L (3.5-5.1) 4.7 mmol/L (3.5-5.1) Chloride Level 98 mmol/L (98-107) 97 mmol/L (98-107) Carbon Dioxide Level 25 mmol/L (21-32) 26 mmol/L (21-32) Anion Gap 15 (6-14) 13 (6-14) Blood Urea Nitrogen 57 mg/dL (8-26) 62 mg/dL (8-26) Creatinine 4.4 mg/dL (0.7-1.3) 4.7 mg/dL (0.7-1.3) Estimated GFR (Cockcroft-Gault) 13.8 12.8 Glucose Level 126 mg/dL (70-99) 165 mg/dL (70-99) Calcium Level 8.5 mg/dL (8.5-10.1) 8.8 mg/dL (8.5-10.1) Troponin I Quantitative 1.204 ng/mL (0.000-0.055) White Blood Count 28.4 x10^3/uL (4.0-11.0) Red Blood Count 2.44 x10^6/uL (4.30-5.70) Hematocrit 22.1 % (39.0-53.0) Mean Corpuscular Volume 90 fL (79-100) Mean Corpuscular Hemoglobin 29 pg (25-35) Mean Corpuscular Hemoglobin Concent 33 g/dL (31-37) Red Cell Distribution Width 16.5 % (11.5-14.5) Platelet Count 267 x10^3/uL (140-400) Neutrophils (%) (Auto) 92 % (31-73) Lymphocytes (%) (Auto) 3 % (24-48) Monocytes (%) (Auto) 6 % (0-9) Eosinophils (%) (Auto) 0 % (0-3) Basophils (%) (Auto) 0 % (0-3) Neutrophils # (Auto) 26.0 x10^3uL (1.8-7.7) Lymphocytes # (Auto) 0.7 x10^3/uL (1.0-4.8) Monocytes # (Auto) 1.6 x10^3/uL (0.0-1.1) Eosinophils # (Auto) 0.0 x10^3/uL (0.0-0.7) Basophils # (Auto) 0.1 x10^3/uL (0.0-0.2) Test 10/23/16 09:45 10/23/16 16:25 10/23/16 17:57 10/24/16 05:00 Prothrombin Time 28.8 SEC (11.7-14.0) Prothromb Time International Ratio 2.9 (0.8-1.1) White Blood Count 24.6 x10^3/uL (4.0-11.0) 21.0 x10^3/uL (4.0-11.0) Red Blood Count 2.67 x10^6/uL (4.30-5.70) 2.72 x10^6/uL (4.30-5.70) Hemoglobin 7.8 g/dL (13.0-17.5) 8.3 g/dL (13.0-17.5) Hematocrit 23.6 % (39.0-53.0) 24.1 % (39.0-53.0) Mean Corpuscular Volume 89 fL (79-100) 88 fL (79-100) Mean Corpuscular Hemoglobin 29 pg (25-35) 31 pg (25-35) Mean Corpuscular Hemoglobin Concent 33 g/dL (31-37) 35 g/dL (31-37) Red Cell Distribution Width 17.0 % (11.5-14.5) 17.5 % (11.5-14.5) Platelet Count 269 x10^3/uL (140-400) 293 x10^3/uL (140-400) Glucose (Fingerstick) 134 mg/dL (70-99) Neutrophils (%) (Auto) 90 % (31-73) Lymphocytes (%) (Auto) 4 % (24-48) Monocytes (%) (Auto) 5 % (0-9) Eosinophils (%) (Auto) 1 % (0-3) Basophils (%) (Auto) 0 % (0-3) Neutrophils # (Auto) 18.8 x10^3uL (1.8-7.7) Lymphocytes # (Auto) 0.8 x10^3/uL (1.0-4.8) Monocytes # (Auto) 1.1 x10^3/uL (0.0-1.1) Eosinophils # (Auto) 0.3 x10^3/uL (0.0-0.7) Basophils # (Auto) 0.0 x10^3/uL (0.0-0.2) Segmented Neutrophils % 86 % (35-66) Band Neutrophils % 6 % (0-9) Lymphocytes % 6 % (24-48) Monocytes % 1 % (0-10) Basophils % 1 % (0-3) Platelet Estimate Adequate (ADEQUATE) Poikilocytosis Present Anisocytosis Present Sodium Level 135 mmol/L (136-145) Potassium Level 4.1 mmol/L (3.5-5.1) Chloride Level 96 mmol/L (98-107) Carbon Dioxide Level 27 mmol/L (21-32) Anion Gap 12 (6-14) Blood Urea Nitrogen 56 mg/dL (8-26) Creatinine 4.7 mg/dL (0.7-1.3) Estimated GFR (Cockcroft-Gault) 12.8 Glucose Level 148 mg/dL (70-99) Calcium Level 8.5 mg/dL (8.5-10.1) Test 10/24/16 07:42 10/24/16 10:00 10/24/16 11:29 Glucose (Fingerstick) 150 mg/dL (70-99) 107 mg/dL (70-99) Prothrombin Time 18.4 SEC (11.7-14.0) Prothromb Time International Ratio 1.6 (0.8-1.1) Laboratory Tests Test 10/23/16 16:25 10/23/16 17:57 10/24/16 05:00 10/24/16 07:42 White Blood Count 24.6 x10^3/uL (4.0-11.0) 21.0 x10^3/uL (4.0-11.0) Red Blood Count 2.67 x10^6/uL (4.30-5.70) 2.72 x10^6/uL (4.30-5.70) Hemoglobin 7.8 g/dL (13.0-17.5) 8.3 g/dL (13.0-17.5) Hematocrit 23.6 % (39.0-53.0) 24.1 % (39.0-53.0) Mean Corpuscular Volume 89 fL (79-100) 88 fL (79-100) Mean Corpuscular Hemoglobin 29 pg (25-35) 31 pg (25-35) Mean Corpuscular Hemoglobin Concent 33 g/dL (31-37) 35 g/dL (31-37) Red Cell Distribution Width 17.0 % (11.5-14.5) 17.5 % (11.5-14.5) Platelet Count 269 x10^3/uL (140-400) 293 x10^3/uL (140-400) Glucose (Fingerstick) 134 mg/dL (70-99) 150 mg/dL (70-99) Neutrophils (%) (Auto) 90 % (31-73) Lymphocytes (%) (Auto) 4 % (24-48) Monocytes (%) (Auto) 5 % (0-9) Eosinophils (%) (Auto) 1 % (0-3) Basophils (%) (Auto) 0 % (0-3) Neutrophils # (Auto) 18.8 x10^3uL (1.8-7.7) Lymphocytes # (Auto) 0.8 x10^3/uL (1.0-4.8) Monocytes # (Auto) 1.1 x10^3/uL (0.0-1.1) Eosinophils # (Auto) 0.3 x10^3/uL (0.0-0.7) Basophils # (Auto) 0.0 x10^3/uL (0.0-0.2) Segmented Neutrophils % 86 % (35-66) Band Neutrophils % 6 % (0-9) Lymphocytes % 6 % (24-48) Monocytes % 1 % (0-10) Basophils % 1 % (0-3) Platelet Estimate Adequate (ADEQUATE) Poikilocytosis Present Anisocytosis Present Sodium Level 135 mmol/L (136-145) Potassium Level 4.1 mmol/L (3.5-5.1) Chloride Level 96 mmol/L (98-107) Carbon Dioxide Level 27 mmol/L (21-32) Anion Gap 12 (6-14) Blood Urea Nitrogen 56 mg/dL (8-26) Creatinine 4.7 mg/dL (0.7-1.3) Estimated GFR (Cockcroft-Gault) 12.8 Glucose Level 148 mg/dL (70-99) Calcium Level 8.5 mg/dL (8.5-10.1) Test 10/24/16 10:00 10/24/16 11:29 Prothrombin Time 18.4 SEC (11.7-14.0) Prothromb Time International Ratio 1.6 (0.8-1.1) Glucose (Fingerstick) 107 mg/dL (70-99) Microbiology 10/22/16 Blood Culture - Preliminary, Resulted NO GROWTH AFTER 1 DAY Medications Current Medications Fentanyl Citrate (Fentanyl 2ml Vial) 25 mcg PRN Q15MIN PRN IV PAIN GREATER THAN 3/10; Start 10/22/16 at 06:30; Stop 10/23/16 at 06:29; Status DC Pantoprazole Sodium 80 mg/ Sodium Chloride 100 ml @ 10 mls/hr Q10H IV Last administered on 10/23/16 01:30; Start 10/22/16 at 07:00; Stop 10/23/16 at 15:46 ; Status DC Pantoprazole Sodium (Protonix Vial) 80 mg 1X ONCE IVP Last administered on 06:52; Start 10/22/16 at 07:00; Stop 10/22/16 at 07:01; Status DC Octreotide Acetate 500 mcg/ Sodium Chloride 101 ml @ 0 mls/hr CONT PRN IV SEE I /O RECORD Last administered on 10/22/16 06:55; Start 10/22/16 at 07:00 Octreotide Acetate (SandoSTATIN) 100 mcg 1X ONCE IV Last administered on 06:52; Start 10/22/16 at 07:00; Stop 10/22/16 at 07:01; Status DC Metoclopramide HCl (Reglan) 10 mg 1X ONCE IV Last administered on 10/22/16 06 :51; Start 10/22/16 at 07:00; Stop 10/22/16 at 07:01; Status DC Ondansetron HCl (Zofran) 4 mg 1X ONCE IV Last administered on 10/22/16 06:51 ; Start 10/22/16 at 07:00; Stop 10/22/16 at 07:01; Status DC Iohexol (Omnipaque 300 Mg/ml) 75 ml 1X ONCE IV ; Start 10/22/16 at 07:00; Stop 10/22/16 at 07:01; Status DC Info (Do NOT chart on this entry -- for MONITORING) 1 each PRN DAILY PRN MC SEE COMMENTS; Start 10/22/16 at 06:45; Stop 10/23/16 at 07:26; Status DC Iohexol (Omnipaque 350 Mg/ml) 90 ml 1X ONCE IV Last administered on 10/22/16 07:34; Start 10/22/16 at 07:00; Stop 10/22/16 at 07:01; Status DC Info (Do NOT chart on this entry -- for MONITORING) 1 each PRN DAILY PRN MC SEE COMMENTS; Start 10/22/16 at 07:00; Stop 10/24/16 at 06:59; Status DC Furosemide (Lasix) 40 mg 1X PRN PRN IV blood transfusion; Start 10/22/16 at 07: 45; Stop 10/23/16 at 07:44; Status DC Phytonadione (Mephyton) 10 mg 1X ONCE PO Last administered on 10/22/16 09:18 ; Start 10/22/16 at 09:15; Stop 10/22/16 at 09:16; Status DC Fentanyl Citrate (Fentanyl 2ml Vial) 50 mcg PRN Q2HR PRN IV PAIN Last administered on 10/22/16 20:52; Start 10/22/16 at 09:45; Stop 10/23/16 at 09:44 ; Status DC Acetaminophen (Tylenol) 650 mg PRN Q4HRS PRN PO FEVER; Start 10/22/16 at 09:45 ; Stop 10/23/16 at 09:44; Status DC Insulin Aspart (NovoLOG) 0-5 UNITS TIDWMEALS SQ ; Start 10/22/16 at 12:00; Stop 10/24/16 at 10:42; Status DC Dextrose (Dextrose 50%-Water Syringe) 12.5 gm PRN Q15MIN PRN IV SEE COMMENTS; Start 10/22/16 at 09:45; Stop 10/22/16 at 12:42; Status DC Norepinephrine Bitartrate 250 ml @ As Directed STK-MED ONCE IV ; Start at 11:03; Stop 10/22/16 at 11:04; Status DC Norepinephrine Bitartrate 250 ml @ 0 mls/hr CONT PRN IV SEE I/O RECORD Last administered on 10/22/16 11:11; Start 10/22/16 at 11:15 Vancomycin HCl 2 gm/Sodium Chloride 500 ml @ 250 mls/hr 1X ONCE IV Last administered on 10/22/16 18:28; Start 10/22/16 at 11:30; Stop 10/22/16 at 13:29 ; Status DC Piperacillin Sod/ Tazobactam Sod 2.25 gm/Sodium Chloride 50 ml @ 100 mls/hr Q8HRS IV Last administered on 10/24/16 13:34; Start 10/22/16 at 12:00 Piperacillin Sod/ Tazobactam Sod (Zosyn Per Pharmacy) 1 each PRN DAILY PRN MC SEE COMMENTS; Start 10/22/16 at 11:30 Insulin Aspart (NovoLOG) 0-7 UNITS TIDWMEALS SQ ; Start 10/22/16 at 12:00 Dextrose (Dextrose 50%-Water Syringe) 12.5 gm PRN Q15MIN PRN IV SEE COMMENTS; Start 10/22/16 at 11:45 Darbepoetin Noel (Aranesp) 60 mcg 1X ONCE SQ Last administered on 10/22/16 15 :48; Start 10/22/16 at 13:00; Stop 10/22/16 at 13:01; Status DC Sodium Chloride 1,000 ml @ 1,000 mls/hr Q1H PRN IV hypotension; Start 10/22/16 at 15:04; Stop 10/22/16 at 21:03; Status DC Albumin Human 200 ml @ 200 mls/hr 1X PRN PRN IV Hypotension; Start 10/22/16 at 15:15; Stop 10/22/16 at 21:14; Status DC Sodium Chloride 1,000 ml @ 400 mls/hr Q2H30M PRN IV PATENCY; Start 10/22/16 at 15:04; Stop 10/23/16 at 03:03; Status DC Info (PHARMACY MONITORING -- do not chart) 1 each PRN DAILY PRN MC SEE COMMENTS ; Start 10/22/16 at 15:15; Status UNV Info (PHARMACY MONITORING -- do not chart) 1 each PRN DAILY PRN MC SEE COMMENTS ; Start 10/22/16 at 15:15 Sodium Chloride 1,000 ml @ 30 mls/hr Q24H IV Last administered on 10/24/16 12 :28; Start 10/23/16 at 11:30 Nystatin (Nystop) 1 leana BID TP Last administered on 10/24/16 12:16; Start at 22:00 Fentanyl Citrate (Fentanyl 2ml Vial) 25 mcg PRN Q2HR PRN IV SEVERE PAIN Last administered on 10/24/16 12:16; Start 10/22/16 at 21:15 Mupirocin (Bactroban) 1 leana BID NS Last administered on 10/24/16 12:16; Start 10/23/16 at 09:00 Ondansetron HCl (Zofran) 4 mg PRN Q6HRS PRN IV NAUSEA/VOMITING Last administered on 10/23/16 13:12; Start 10/23/16 at 07:30 Etomidate (Amidate) 20 mg STK-MED ONCE IV ; Start 10/23/16 at 15:03; Stop at 15:04; Status DC Propofol 20 ml @ As Directed STK-MED ONCE IV ; Start 10/23/16 at 15:03; Stop at 15:04; Status DC Pantoprazole Sodium (Protonix) 40 mg BIDAC PO Last administered on 10/24/16 12 :16; Start 10/23/16 at 16:30 Alprazolam (Xanax) 1 mg TID PO Last administered on 10/24/16 12:15; Start at 21:00 Sodium Chloride 1,000 ml @ 1,000 mls/hr Q1H PRN IV hypotension; Start 10/24/16 at 07:23; Stop 10/24/16 at 13:22; Status DC Sodium Chloride 1,000 ml @ 400 mls/hr Q2H30M PRN IV PATENCY; Start 10/24/16 at 07:23; Stop 10/24/16 at 19:22 Info (PHARMACY MONITORING -- do not chart) 1 each PRN DAILY PRN MC SEE COMMENTS ; Start 10/24/16 at 07:30; Status Cancel Warfarin Sodium (Coumadin Per Pharmacy) 1 each PRN DAILY PRN MC SEE COMMENTS Last administered on 10/24/16 12:15; Start 10/24/16 at 12:00 Warfarin Sodium (Coumadin) 3 mg 1X WARF ONCE PO ; Start 10/24/16 at 16:00; Stop 10/24/16 at 16:01 Active Scripts Active Senna-Time S Tablet (Sennosides/Docusate Sodium) 1 Each Tablet 2 Tab PO PRN DAILY PRN Novolog Flexpen (Insulin Aspart) 300 Units/3 Ml Insuln.pen 0 Units SQ TIDWMEALS Reported Sapphire-Sara Tablet (Folic Acid/Vitamin B Comp W-C) 0.8 Mg Tablet 0.8 Mg PO Alprazolam 1 Mg Tablet 1 Tab PO TID Hydrocodone-Apap 5-325 (Hydrocodone Bit/Acetaminophen) 1 Each Tablet 1 Tab PO PRN Q8HRS PRN Warfarin Sodium 2 Mg Tablet 1 Tab PO DAILY Actos (Pioglitazone Hcl) 45 Mg Tablet 1 Tab PO DAILY Reglan (Metoclopramide Hcl) 10 Mg Tablet 10 Mg PO QIDACHS Lomotil Tablet (Diphenoxylate Hcl/Atropine) 1 Each Tablet 1 Tab PO QID PRN Sulfamethoxazole-Tmp Ds Tablet (Sulfamethoxazole/Trimethoprim) 1 Each Tablet 1 Tab PO BID Ramipril 10 Mg Capsule 5 Mg PO DAILY Tums (Calcium Carbonate) 300 Mg Tab.chew 300 Mg PO TIDAC Warfarin Sodium 4 Mg Tablet 5 Mg PO DAILY Escitalopram Oxalate 10 Mg Tablet 40 Tab PO DAILY Atorvastatin Calcium 20 Mg Tablet 40 Mg PO DAILY Vitals/I & O Vital Sign - Last 24 Hours 10/23/16 10/23/16 10/23/16 10/23/16 14:52 15:00 15:19 15:20 Temp 99.1 99.4 99.1 99.4 Pulse 59 77 66 Resp 20 16 20 B/P (MAP) 112/52 92/45 (61) Pulse Ox 99 99 O2 Delivery Nasal Cannula Nasal Cannula O2 Flow Rate 3.0 3.0 10/23/16 10/23/16 10/23/16 10/23/16 15:35 15:39 16:00 17:00 Temp 99.4 99.5 99.4 99.5 Pulse 67 70 77 77 Resp 20 20 16 16 B/P (MAP) 91/31 124/56 121/54 (76) 80/48 (59) Pulse Ox 96 97 99 99 O2 Delivery Nasal Cannula Nasal Cannula Nasal Cannula O2 Flow Rate 3.0 3.0 10/23/16 10/23/16 10/23/16 10/23/16 18:00 19:00 19:06 20:00 Pulse 77 65 Resp 16 16 16 B/P (MAP) 134/56 (82) 104/53 (70) Pulse Ox 99 100 O2 Delivery Nasal Cannula Nasal Cannula Nasal Cannula O2 Flow Rate 3.0 3.0 3.0 3.0 10/23/16 10/23/16 10/23/16 10/23/16 20:00 21:00 22:00 23:00 Temp 98.9 98.9 Pulse 60 60 58 60 Resp 16 12 19 12 B/P (MAP) 87/40 (56) 82/41 (55) 93/47 (62) 86/47 (60) Pulse Ox 99 99 100 98 O2 Delivery Nasal Cannula Nasal Cannula Nasal Cannula Nasal Cannula O2 Flow Rate 3.0 3.0 3.0 3.0 10/24/16 10/24/16 10/24/16 10/24/16 00:00 00:00 01:00 02:00 Pulse 62 60 58 Resp 19 20 20 B/P (MAP) 87/44 (58) 87/48 (61) 83/48 (60) Pulse Ox 96 97 98 O2 Delivery Nasal Cannula Nasal Cannula Nasal Cannula Nasal Cannula O2 Flow Rate 3.0 3.0 3.0 3.0 10/24/16 10/24/16 10/24/16 10/24/16 03:00 04:00 04:00 05:00 Temp 98.4 98.4 Pulse 56 56 56 Resp 19 19 22 B/P (MAP) 84/47 (59) 95/46 (62) 83/49 (60) Pulse Ox 99 99 99 O2 Delivery Nasal Cannula Nasal Cannula Nasal Cannula Nasal Cannula O2 Flow Rate 3.0 3.0 3.0 3.0 10/24/16 10/24/16 10/24/16 10/24/16 06:00 07:00 08:00 08:00 Temp 98.3 98.3 Pulse 57 60 55 Resp 19 16 20 B/P (MAP) 92/51 (65) 96/52 (67) 93/54 (67) Pulse Ox 99 100 100 O2 Delivery Nasal Cannula Nasal Cannula Nasal Cannula Nasal Cannula O2 Flow Rate 3.0 3.0 3.0 3.0 10/24/16 10/24/16 10/24/16 10/24/16 09:00 10:00 11:00 12:00 Temp 98.0 98.0 Pulse 58 60 66 66 Resp 22 14 22 16 B/P (MAP) 98/55 (69) 99/52 (68) 105/52 (69) 102/69 (80) Pulse Ox 100 100 100 100 O2 Delivery Nasal Cannula Nasal Cannula Nasal Cannula Nasal Cannula O2 Flow Rate 3.0 3.0 3.0 3.0 10/24/16 10/24/16 10/24/16 10/24/16 12:00 12:16 12:50 13:00 Pulse 73 Resp 16 18 16 B/P (MAP) 107/55 (72) Pulse Ox 99 99 100 O2 Delivery Nasal Cannula Nasal Cannula Nasal Cannula Nasal Cannula O2 Flow Rate 3.0 3.0 3.0 3.0 Intake and Output 10/23/16 10/23/16 10/24/16 15:00 23:00 07:00 Intake Total 350 ml 600 ml Output Total 0 ml Balance 350 ml 0 ml 600 ml JARON RAMOS MD October 24, 2016 14:46
[2016-10-24] MEDS ORDERED: WARFARIN 3 MG TABLET. PO ONE (16:00)
[2016-10-25 03:00] VITALS: BP 94/48
[2016-10-25 05:37] LABS: BASO % 0 % (0-3); EOS % 2 % (0-3); HEMATOCRIT 24.5 % (39.0-53.0); HEMOGLOBIN 8.3 g/dL (13.0-17.5); LYMPH # 0.9 x10^3/uL (1.0-4.8); LYMPH % 7 % (24-48); MEAN CORPUSCULAR HEMOGLOBIN 30 pg (25-35); MEAN CORPUSCULAR HGB CONC 34 g/dL (31-37); MEAN CORPUSCULAR VOLUME 89 fL (79-100); MONO % 7 % (0-9); NEUT % 84 % (31-73); PLATELET COUNT 299 x10^3/uL (140-400); RED BLOOD COUNT 2.76 x10^6/uL (4.30-5.70); WHITE BLOOD COUNT 12.7 x10^3/uL (4.0-11.0)
[2016-10-25 05:51] LABS: INR 2.2 (0.8-1.1)
[2016-10-25] MEDS: PIPERACILLIN/TAZOBACTAM 2.25 GM in IV NORMAL SALINE 50ML 50 ML IV SCH (05:52)
[2016-10-25 07:00] VITALS: BP 99/41
--- NOTE | 2016-10-25 07:39 | RAD ---
EXAM: Chest, single view. HISTORY: Aspiration. COMPARISON: 10/22/2016. FINDINGS: A frontal view of the chest is obtained. There is no infiltrate, effusion or pneumothorax. The heart is normal in size for portable technique. IMPRESSION: No acute pulmonary finding.
--- NOTE | 2016-10-25 07:57 | PDOC ---
SUBJECTIVE ROS ESRD Doign and feeling better today CVS: no Orthopnea, no CP RESP: no SOB, no SHAH GI: no Nausea, no Vomiting : no Dysuria, no Urgency OBJECTIVE Vital Signs Vital Signs Date Time Temp Pulse Resp B/P (MAP) Pulse Ox O2 Delivery O2 Flow Rate FiO2 10/25/16 07:00 98.3 59 18 99/41 (60) 100 Room Air 98.3 10/25/16 03:00 3.0 I & 0 Intake and Output 10/25/16 07:00 Intake Total 1000 ml Balance 1000 ml Intake Oral 1000 ml # Voids 1 # Bowel Movements 1 PHYSICAL EXAM Physical Exam GEN: Awake, Oriented x 3, In no distress EYES: Vision Unchanged, Conjunctiva Normal EN: No EN Drainage, Mucous Membranes moist NECK: no JVD, min JVP, Supple, no Thyromegaly CVS: S1S2, + Murmur, No Gallop, No Rub,tr Edema RESP: no Rales, no Rhonchi,no Acc. Muscle Use GI: BS + ve, NO Bruit, Non Tender, Non Distended : no CVA tenderness, no Suprapubic Tenderness DIAGNOSIS/ASSESSMENT Assessment & Plan ESRD: Current fluid and E-lyte status does not necessitate emergent need for dialysis. Will re-evaluate for dialysis in the am and continue on TTSat schedule. Fl Overload: clinically much better ANEMIA in CKD ; (was felt to be due to GI Bleed) somewhat better after hemoconcentration; Aranesp as ordered, Transfuse with next HD as needed HyperPhosphatemia/ KAYLAH -cehck phos levels and alter binder regimen base on PO intake Marginal BP: restrict aggressive Uf as OP Discussed Plan of Care with family at bedside; OK to D/c from renal standpoint COMMENT/RELEVANT DATA Meds Current Medications Medications (Trade) Dose Ordered Sig/Nanette Start Time Stop Time Status Last Admin Dose Admin Acetaminophen (Tylenol) 650 mg PRN Q4HRS PRN 10/22/16 09:45 10/23/16 09:44 DC Albumin Human 200 ml @ 200 mls/hr 1X PRN PRN 10/22/16 15:15 10/22/16 21:14 DC Alprazolam (Xanax) 1 mg TID 10/23/16 21:00 10/24/16 20:48 1 MG Darbepoetin Noel (Aranesp) 60 mcg 1X ONCE 10/22/16 13:00 10/22/16 13:01 DC 10/22/16 15:48 60 MCG Dextrose (Dextrose 50%-Water Syringe) 12.5 gm PRN Q15MIN PRN 10/22/16 11:45 Etomidate (Amidate) 20 mg STK-MED ONCE 10/23/16 15:03 10/23/16 15:04 DC Fentanyl Citrate (Fentanyl 2ml Vial) 25 mcg PRN Q2HR PRN 10/22/16 21:15 10/24/16 12:16 25 MCG Furosemide (Lasix) 40 mg 1X PRN PRN 10/22/16 07:45 10/23/16 07:44 DC Info (Do NOT chart on this entry -- for MONITORING) 1 each PRN DAILY PRN 10/22/16 07:00 10/24/16 06:59 DC Info (PHARMACY MONITORING -- do not chart) 1 each PRN DAILY PRN 10/24/16 07:30 Cancel Insulin Aspart (NovoLOG) 0-7 UNITS TIDWMEALS 10/22/16 12:00 10/24/16 17:25 4 UNITS Iohexol (Omnipaque 300 Mg/ml) 75 ml 1X ONCE 10/22/16 07:00 10/22/16 07:01 DC Iohexol (Omnipaque 350 Mg/ml) 90 ml 1X ONCE 10/22/16 07:00 10/22/16 07:01 DC 10/22/16 07:34 90 ML Metoclopramide HCl (Reglan) 10 mg 1X ONCE 10/22/16 07:00 10/22/16 07:01 DC 10/22/16 06:51 10 MG Mupirocin (Bactroban) 1 leana BID 10/23/16 09:00 10/24/16 20:48 1 LEANA Norepinephrine Bitartrate 250 ml @ 0 mls/hr CONT PRN 10/22/16 11:15 10/22/16 11:11 18.75 MLS/HR Nystatin (Nystop) 1 leana BID 10/22/16 22:00 10/24/16 20:48 1 LEANA Octreotide Acetate 500 mcg/ Sodium Chloride 101 ml @ 0 mls/hr CONT PRN 10/22/16 07:00 10/22/16 06:55 10 MLS/HR Octreotide Acetate (SandoSTATIN) 100 mcg 1X ONCE 10/22/16 07:00 10/22/16 07:01 DC 10/22/16 06:52 100 MCG Ondansetron HCl (Zofran) 4 mg PRN Q6HRS PRN 10/23/16 07:30 10/23/16 13:12 4 MG Pantoprazole Sodium (Protonix Vial) 80 mg 1X ONCE 10/22/16 07:00 10/22/16 07:01 DC 10/22/16 06:52 80 MG Pantoprazole Sodium (Protonix) 40 mg BIDAC 10/23/16 16:30 10/24/16 17:22 40 MG Pantoprazole Sodium 80 mg/ Sodium Chloride 100 ml @ 10 mls/hr Q10H 10/22/16 07:00 10/23/16 15:46 DC 10/23/16 01:30 10 MLS/HR Phytonadione (Mephyton) 10 mg 1X ONCE 10/22/16 09:15 10/22/16 09:16 DC 10/22/16 09:18 10 MG Piperacillin Sod/ Tazobactam Sod (Zosyn Per Pharmacy) 1 each PRN DAILY PRN 10/22/16 11:30 Piperacillin Sod/ Tazobactam Sod 2.25 gm/Sodium Chloride 50 ml @ 100 mls/hr Q8HRS 10/22/16 12:00 10/25/16 05:52 100 MLS/HR Propofol 20 ml @ As Directed STK-MED ONCE 10/23/16 15:03 10/23/16 15:04 DC Sodium Chloride 1,000 ml @ 400 mls/hr Q2H30M PRN 10/24/16 07:23 10/24/16 19:22 DC Vancomycin HCl 2 gm/Sodium Chloride 500 ml @ 250 mls/hr 1X ONCE 10/22/16 11:30 10/22/16 13:29 DC 10/22/16 18:28 250 MLS/HR Warfarin Sodium (Coumadin Per Pharmacy) 1 each PRN DAILY PRN 10/24/16 12:00 10/24/16 12:15 1 EACH Warfarin Sodium (Coumadin) 3 mg 1X WARF ONCE 10/24/16 16:00 10/24/16 16:01 DC 10/24/16 17:22 3 MG Lab Laboratory Tests Test 10/24/16 10:00 10/24/16 11:29 10/24/16 17:16 10/24/16 20:51 Prothrombin Time 18.4 SEC (11.7-14.0) Prothromb Time International Ratio 1.6 (0.8-1.1) Glucose (Fingerstick) 107 mg/dL (70-99) 207 mg/dL (70-99) 176 mg/dL (70-99) Test 10/25/16 05:15 10/25/16 07:24 White Blood Count 12.7 x10^3/uL (4.0-11.0) Red Blood Count 2.76 x10^6/uL (4.30-5.70) Hemoglobin 8.3 g/dL (13.0-17.5) Hematocrit 24.5 % (39.0-53.0) Mean Corpuscular Volume 89 fL (79-100) Mean Corpuscular Hemoglobin 30 pg (25-35) Mean Corpuscular Hemoglobin Concent 34 g/dL (31-37) Red Cell Distribution Width 17.0 % (11.5-14.5) Platelet Count 299 x10^3/uL (140-400) Neutrophils (%) (Auto) 84 % (31-73) Lymphocytes (%) (Auto) 7 % (24-48) Monocytes (%) (Auto) 7 % (0-9) Eosinophils (%) (Auto) 2 % (0-3) Basophils (%) (Auto) 0 % (0-3) Neutrophils # (Auto) 10.7 x10^3uL (1.8-7.7) Lymphocytes # (Auto) 0.9 x10^3/uL (1.0-4.8) Monocytes # (Auto) 0.9 x10^3/uL (0.0-1.1) Eosinophils # (Auto) 0.2 x10^3/uL (0.0-0.7) Basophils # (Auto) 0.0 x10^3/uL (0.0-0.2) Prothrombin Time 23.0 SEC (11.7-14.0) Prothromb Time International Ratio 2.2 (0.8-1.1) Glucose (Fingerstick) 179 mg/dL (70-99) YUMIKO SCHAFER MD October 25, 2016 07:57
[2016-10-25] MEDS ORDERED: MAGNESIUM SULFATE 2GM 50 ML IV PRN (08:00)
[2016-10-25] MEDS: INSULIN ASPART 300 UNITS/3 ML INSULN.PEN SQ SCH ×3 (08:00→17:42)
[2016-10-25] MEDS: PANTOPRAZOLE 40 MG TABLET.DR. PO SCH ×2 (08:36→16:55)
[2016-10-25] MEDS: ALPRAZolam 1 MG TABLET PO SCH ×4 (08:36→20:54)
--- NOTE | 2016-10-25 08:40 | PDOC ---
G I PROGRESS NOTE Subjective No GI complaints. Eating well. No further overt bleeding. Physical Exam Lungs clear. RRR Abdomen soft, not tender nor distended. Review of Relevant I have reviewed the following items maria teresa (where applicable) has been applied. Labs Laboratory Tests Test 10/23/16 09:45 10/23/16 16:25 10/23/16 17:57 10/24/16 05:00 Prothrombin Time 28.8 SEC (11.7-14.0) Prothromb Time International Ratio 2.9 (0.8-1.1) White Blood Count 24.6 x10^3/uL (4.0-11.0) 21.0 x10^3/uL (4.0-11.0) Red Blood Count 2.67 x10^6/uL (4.30-5.70) 2.72 x10^6/uL (4.30-5.70) Hemoglobin 7.8 g/dL (13.0-17.5) 8.3 g/dL (13.0-17.5) Hematocrit 23.6 % (39.0-53.0) 24.1 % (39.0-53.0) Mean Corpuscular Volume 89 fL (79-100) 88 fL (79-100) Mean Corpuscular Hemoglobin 29 pg (25-35) 31 pg (25-35) Mean Corpuscular Hemoglobin Concent 33 g/dL (31-37) 35 g/dL (31-37) Red Cell Distribution Width 17.0 % (11.5-14.5) 17.5 % (11.5-14.5) Platelet Count 269 x10^3/uL (140-400) 293 x10^3/uL (140-400) Glucose (Fingerstick) 134 mg/dL (70-99) Neutrophils (%) (Auto) 90 % (31-73) Lymphocytes (%) (Auto) 4 % (24-48) Monocytes (%) (Auto) 5 % (0-9) Eosinophils (%) (Auto) 1 % (0-3) Basophils (%) (Auto) 0 % (0-3) Neutrophils # (Auto) 18.8 x10^3uL (1.8-7.7) Lymphocytes # (Auto) 0.8 x10^3/uL (1.0-4.8) Monocytes # (Auto) 1.1 x10^3/uL (0.0-1.1) Eosinophils # (Auto) 0.3 x10^3/uL (0.0-0.7) Basophils # (Auto) 0.0 x10^3/uL (0.0-0.2) Segmented Neutrophils % 86 % (35-66) Band Neutrophils % 6 % (0-9) Lymphocytes % 6 % (24-48) Monocytes % 1 % (0-10) Basophils % 1 % (0-3) Platelet Estimate Adequate (ADEQUATE) Poikilocytosis Present Anisocytosis Present Sodium Level 135 mmol/L (136-145) Potassium Level 4.1 mmol/L (3.5-5.1) Chloride Level 96 mmol/L (98-107) Carbon Dioxide Level 27 mmol/L (21-32) Anion Gap 12 (6-14) Blood Urea Nitrogen 56 mg/dL (8-26) Creatinine 4.7 mg/dL (0.7-1.3) Estimated GFR (Cockcroft-Gault) 12.8 Glucose Level 148 mg/dL (70-99) Calcium Level 8.5 mg/dL (8.5-10.1) Test 10/24/16 07:42 10/24/16 10:00 10/24/16 11:29 10/24/16 17:16 Glucose (Fingerstick) 150 mg/dL (70-99) 107 mg/dL (70-99) 207 mg/dL (70-99) Prothrombin Time 18.4 SEC (11.7-14.0) Prothromb Time International Ratio 1.6 (0.8-1.1) Test 10/24/16 20:51 10/25/16 05:15 10/25/16 07:24 Glucose (Fingerstick) 176 mg/dL (70-99) 179 mg/dL (70-99) White Blood Count 12.7 x10^3/uL (4.0-11.0) Red Blood Count 2.76 x10^6/uL (4.30-5.70) Hemoglobin 8.3 g/dL (13.0-17.5) Hematocrit 24.5 % (39.0-53.0) Mean Corpuscular Volume 89 fL (79-100) Mean Corpuscular Hemoglobin 30 pg (25-35) Mean Corpuscular Hemoglobin Concent 34 g/dL (31-37) Red Cell Distribution Width 17.0 % (11.5-14.5) Platelet Count 299 x10^3/uL (140-400) Neutrophils (%) (Auto) 84 % (31-73) Lymphocytes (%) (Auto) 7 % (24-48) Monocytes (%) (Auto) 7 % (0-9) Eosinophils (%) (Auto) 2 % (0-3) Basophils (%) (Auto) 0 % (0-3) Neutrophils # (Auto) 10.7 x10^3uL (1.8-7.7) Lymphocytes # (Auto) 0.9 x10^3/uL (1.0-4.8) Monocytes # (Auto) 0.9 x10^3/uL (0.0-1.1) Eosinophils # (Auto) 0.2 x10^3/uL (0.0-0.7) Basophils # (Auto) 0.0 x10^3/uL (0.0-0.2) Prothrombin Time 23.0 SEC (11.7-14.0) Prothromb Time International Ratio 2.2 (0.8-1.1) Laboratory Tests Test 10/24/16 10:00 10/24/16 11:29 10/24/16 17:16 10/24/16 20:51 Prothrombin Time 18.4 SEC (11.7-14.0) Prothromb Time International Ratio 1.6 (0.8-1.1) Glucose (Fingerstick) 107 mg/dL (70-99) 207 mg/dL (70-99) 176 mg/dL (70-99) Test 10/25/16 05:15 10/25/16 07:24 White Blood Count 12.7 x10^3/uL (4.0-11.0) Red Blood Count 2.76 x10^6/uL (4.30-5.70) Hemoglobin 8.3 g/dL (13.0-17.5) Hematocrit 24.5 % (39.0-53.0) Mean Corpuscular Volume 89 fL (79-100) Mean Corpuscular Hemoglobin 30 pg (25-35) Mean Corpuscular Hemoglobin Concent 34 g/dL (31-37) Red Cell Distribution Width 17.0 % (11.5-14.5) Platelet Count 299 x10^3/uL (140-400) Neutrophils (%) (Auto) 84 % (31-73) Lymphocytes (%) (Auto) 7 % (24-48) Monocytes (%) (Auto) 7 % (0-9) Eosinophils (%) (Auto) 2 % (0-3) Basophils (%) (Auto) 0 % (0-3) Neutrophils # (Auto) 10.7 x10^3uL (1.8-7.7) Lymphocytes # (Auto) 0.9 x10^3/uL (1.0-4.8) Monocytes # (Auto) 0.9 x10^3/uL (0.0-1.1) Eosinophils # (Auto) 0.2 x10^3/uL (0.0-0.7) Basophils # (Auto) 0.0 x10^3/uL (0.0-0.2) Prothrombin Time 23.0 SEC (11.7-14.0) Prothromb Time International Ratio 2.2 (0.8-1.1) Glucose (Fingerstick) 179 mg/dL (70-99) Microbiology 10/22/16 Blood Culture - Preliminary, Resulted NO GROWTH AFTER 2 DAYS Medications Current Medications Fentanyl Citrate (Fentanyl 2ml Vial) 25 mcg PRN Q15MIN PRN IV PAIN GREATER THAN 3/10; Start 10/22/16 at 06:30; Stop 10/23/16 at 06:29; Status DC Pantoprazole Sodium 80 mg/ Sodium Chloride 100 ml @ 10 mls/hr Q10H IV Last administered on 10/23/16 01:30; Start 10/22/16 at 07:00; Stop 10/23/16 at 15:46 ; Status DC Pantoprazole Sodium (Protonix Vial) 80 mg 1X ONCE IVP Last administered on 06:52; Start 10/22/16 at 07:00; Stop 10/22/16 at 07:01; Status DC Octreotide Acetate 500 mcg/ Sodium Chloride 101 ml @ 0 mls/hr CONT PRN IV SEE I /O RECORD Last administered on 10/22/16 06:55; Start 10/22/16 at 07:00 Octreotide Acetate (SandoSTATIN) 100 mcg 1X ONCE IV Last administered on 06:52; Start 10/22/16 at 07:00; Stop 10/22/16 at 07:01; Status DC Metoclopramide HCl (Reglan) 10 mg 1X ONCE IV Last administered on 10/22/16 06 :51; Start 10/22/16 at 07:00; Stop 10/22/16 at 07:01; Status DC Ondansetron HCl (Zofran) 4 mg 1X ONCE IV Last administered on 10/22/16 06:51 ; Start 10/22/16 at 07:00; Stop 10/22/16 at 07:01; Status DC Iohexol (Omnipaque 300 Mg/ml) 75 ml 1X ONCE IV ; Start 10/22/16 at 07:00; Stop 10/22/16 at 07:01; Status DC Info (Do NOT chart on this entry -- for MONITORING) 1 each PRN DAILY PRN MC SEE COMMENTS; Start 10/22/16 at 06:45; Stop 10/23/16 at 07:26; Status DC Iohexol (Omnipaque 350 Mg/ml) 90 ml 1X ONCE IV Last administered on 10/22/16 07:34; Start 10/22/16 at 07:00; Stop 10/22/16 at 07:01; Status DC Info (Do NOT chart on this entry -- for MONITORING) 1 each PRN DAILY PRN MC SEE COMMENTS; Start 10/22/16 at 07:00; Stop 10/24/16 at 06:59; Status DC Furosemide (Lasix) 40 mg 1X PRN PRN IV blood transfusion; Start 10/22/16 at 07: 45; Stop 10/23/16 at 07:44; Status DC Phytonadione (Mephyton) 10 mg 1X ONCE PO Last administered on 10/22/16 09:18 ; Start 10/22/16 at 09:15; Stop 10/22/16 at 09:16; Status DC Fentanyl Citrate (Fentanyl 2ml Vial) 50 mcg PRN Q2HR PRN IV PAIN Last administered on 10/22/16 20:52; Start 10/22/16 at 09:45; Stop 10/23/16 at 09:44 ; Status DC Acetaminophen (Tylenol) 650 mg PRN Q4HRS PRN PO FEVER; Start 10/22/16 at 09:45 ; Stop 10/23/16 at 09:44; Status DC Insulin Aspart (NovoLOG) 0-5 UNITS TIDWMEALS SQ ; Start 10/22/16 at 12:00; Stop 10/24/16 at 10:42; Status DC Dextrose (Dextrose 50%-Water Syringe) 12.5 gm PRN Q15MIN PRN IV SEE COMMENTS; Start 10/22/16 at 09:45; Stop 10/22/16 at 12:42; Status DC Norepinephrine Bitartrate 250 ml @ As Directed STK-MED ONCE IV ; Start at 11:03; Stop 10/22/16 at 11:04; Status DC Norepinephrine Bitartrate 250 ml @ 0 mls/hr CONT PRN IV SEE I/O RECORD Last administered on 10/22/16 11:11; Start 10/22/16 at 11:15 Vancomycin HCl 2 gm/Sodium Chloride 500 ml @ 250 mls/hr 1X ONCE IV Last administered on 10/22/16 18:28; Start 10/22/16 at 11:30; Stop 10/22/16 at 13:29 ; Status DC Piperacillin Sod/ Tazobactam Sod 2.25 gm/Sodium Chloride 50 ml @ 100 mls/hr Q8HRS IV Last administered on 10/25/16 05:52; Start 10/22/16 at 12:00 Piperacillin Sod/ Tazobactam Sod (Zosyn Per Pharmacy) 1 each PRN DAILY PRN MC SEE COMMENTS; Start 10/22/16 at 11:30 Insulin Aspart (NovoLOG) 0-7 UNITS TIDWMEALS SQ Last administered on 10/25/16 08:00; Start 10/22/16 at 12:00 Dextrose (Dextrose 50%-Water Syringe) 12.5 gm PRN Q15MIN PRN IV SEE COMMENTS; Start 10/22/16 at 11:45 Darbepoetin Noel (Aranesp) 60 mcg 1X ONCE SQ Last administered on 10/22/16 15 :48; Start 10/22/16 at 13:00; Stop 10/22/16 at 13:01; Status DC Sodium Chloride 1,000 ml @ 1,000 mls/hr Q1H PRN IV hypotension; Start 10/22/16 at 15:04; Stop 10/22/16 at 21:03; Status DC Albumin Human 200 ml @ 200 mls/hr 1X PRN PRN IV Hypotension; Start 10/22/16 at 15:15; Stop 10/22/16 at 21:14; Status DC Sodium Chloride 1,000 ml @ 400 mls/hr Q2H30M PRN IV PATENCY; Start 10/22/16 at 15:04; Stop 10/23/16 at 03:03; Status DC Info (PHARMACY MONITORING -- do not chart) 1 each PRN DAILY PRN MC SEE COMMENTS ; Start 10/22/16 at 15:15; Status UNV Info (PHARMACY MONITORING -- do not chart) 1 each PRN DAILY PRN MC SEE COMMENTS ; Start 10/22/16 at 15:15 Sodium Chloride 1,000 ml @ 30 mls/hr Q24H IV Last administered on 10/24/16 20 :38; Start 10/23/16 at 11:30 Nystatin (Nystop) 1 leana BID TP Last administered on 10/24/16 20:48; Start at 22:00 Fentanyl Citrate (Fentanyl 2ml Vial) 25 mcg PRN Q2HR PRN IV SEVERE PAIN Last administered on 10/24/16 12:16; Start 10/22/16 at 21:15 Mupirocin (Bactroban) 1 leana BID NS Last administered on 10/24/16 20:48; Start 10/23/16 at 09:00 Ondansetron HCl (Zofran) 4 mg PRN Q6HRS PRN IV NAUSEA/VOMITING Last administered on 10/23/16 13:12; Start 10/23/16 at 07:30 Etomidate (Amidate) 20 mg STK-MED ONCE IV ; Start 10/23/16 at 15:03; Stop at 15:04; Status DC Propofol 20 ml @ As Directed STK-MED ONCE IV ; Start 10/23/16 at 15:03; Stop at 15:04; Status DC Pantoprazole Sodium (Protonix) 40 mg BIDAC PO Last administered on 10/24/16 17 :22; Start 10/23/16 at 16:30 Alprazolam (Xanax) 1 mg TID PO Last administered on 10/24/16 20:48; Start at 21:00 Sodium Chloride 1,000 ml @ 1,000 mls/hr Q1H PRN IV hypotension; Start 10/24/16 at 07:23; Stop 10/24/16 at 13:22; Status DC Sodium Chloride 1,000 ml @ 400 mls/hr Q2H30M PRN IV PATENCY; Start 10/24/16 at 07:23; Stop 10/24/16 at 19:22; Status DC Info (PHARMACY MONITORING -- do not chart) 1 each PRN DAILY PRN MC SEE COMMENTS ; Start 10/24/16 at 07:30; Status Cancel Warfarin Sodium (Coumadin Per Pharmacy) 1 each PRN DAILY PRN MC SEE COMMENTS Last administered on 10/24/16 12:15; Start 10/24/16 at 12:00 Warfarin Sodium (Coumadin) 3 mg 1X WARF ONCE PO Last administered on 17:22; Start 10/24/16 at 16:00; Stop 10/24/16 at 16:01; Status DC Magnesium Sulfate/ Dextrose 50 ml @ 25 mls/hr PRN DAILY PRN IV for Mag < 1.7 on am labs; Start 10/25/16 at 08:00 Active Scripts Active Senna-Time S Tablet (Sennosides/Docusate Sodium) 1 Each Tablet 2 Tab PO PRN DAILY PRN Novolog Flexpen (Insulin Aspart) 300 Units/3 Ml Insuln.pen 0 Units SQ TIDWMEALS Reported Sapphire-Sara Tablet (Folic Acid/Vitamin B Comp W-C) 0.8 Mg Tablet 0.8 Mg PO Alprazolam 1 Mg Tablet 1 Tab PO TID Hydrocodone-Apap 5-325 (Hydrocodone Bit/Acetaminophen) 1 Each Tablet 1 Tab PO PRN Q8HRS PRN Warfarin Sodium 2 Mg Tablet 1 Tab PO DAILY Actos (Pioglitazone Hcl) 45 Mg Tablet 1 Tab PO DAILY Reglan (Metoclopramide Hcl) 10 Mg Tablet 10 Mg PO QIDACHS Lomotil Tablet (Diphenoxylate Hcl/Atropine) 1 Each Tablet 1 Tab PO QID PRN Sulfamethoxazole-Tmp Ds Tablet (Sulfamethoxazole/Trimethoprim) 1 Each Tablet 1 Tab PO BID Ramipril 10 Mg Capsule 5 Mg PO DAILY Tums (Calcium Carbonate) 300 Mg Tab.chew 300 Mg PO TIDAC Warfarin Sodium 4 Mg Tablet 5 Mg PO DAILY Escitalopram Oxalate 10 Mg Tablet 40 Tab PO DAILY Atorvastatin Calcium 20 Mg Tablet 40 Mg PO DAILY Vitals/I & O Vital Sign - Last 24 Hours 10/24/16 10/24/16 10/24/16 10/24/16 09:00 10:00 11:00 12:00 Temp 98.0 98.0 Pulse 58 60 66 66 Resp 22 14 22 16 B/P (MAP) 98/55 (69) 99/52 (68) 105/52 (69) 102/69 (80) Pulse Ox 100 100 100 100 O2 Delivery Nasal Cannula Nasal Cannula Nasal Cannula Nasal Cannula O2 Flow Rate 3.0 3.0 3.0 3.0 10/24/16 10/24/16 10/24/16 10/24/16 12:00 12:16 12:50 13:00 Pulse 73 Resp 16 18 16 B/P (MAP) 107/55 (72) Pulse Ox 99 99 100 O2 Delivery Nasal Cannula Nasal Cannula Nasal Cannula Nasal Cannula O2 Flow Rate 3.0 3.0 3.0 3.0 10/24/16 10/24/16 10/24/16 10/24/16 14:00 15:00 16:00 19:30 Temp 98.2 98.1 98.2 98.1 Pulse 73 68 63 57 Resp 16 18 18 16 B/P (MAP) 90/49 (63) 78/54 (62) 96/47 (63) 99/46 (63) Pulse Ox 100 100 97 100 O2 Delivery Nasal Cannula Nasal Cannula Room Air Room Air O2 Flow Rate 3.0 3.0 10/24/16 10/24/16 10/25/16 10/25/16 21:00 23:00 03:00 07:00 Temp 98.4 97.7 98.3 98.4 97.7 98.3 Pulse 74 67 59 Resp 20 14 18 B/P (MAP) 78/46 (57) 94/48 (63) 99/41 (60) Pulse Ox 89 99 100 O2 Delivery Room Air Room Air Nasal Cannula Room Air O2 Flow Rate 3.0 Intake and Output 10/24/16 10/24/16 10/25/16 15:00 23:00 07:00 Intake Total 300 ml 700 ml Balance 300 ml 700 ml Assessment UGI bleed. Exact cause unclear, but NSAID-related lesion suspect in non- visualized area. Plan of Care: Continue current Tx, Mgmt Plan of Care Note BID PPI here/once daily at home for at least 4 weeks. Consider chronic therapy , particularly if continues use of NSAID. Consider po iron bid-tid for 6 months to replace iron stores. OK with me to dismiss at your discretion. F/u with us prn. GURWINDER ESTEVEZ MD October 25, 2016 08:40
[2016-10-25] MEDS: MUPIROCIN 2 % NASAL OINTMENT 22GM TUBE. NS SCH ×2 (09:00→20:54)
[2016-10-25] MEDS: NYSTATIN TOPICAL POWDER 15GM BOTTLE. TP SCH ×2 (09:00→20:54)
--- NOTE | 2016-10-25 09:09 | PDOC ---
Infectious Disease Note Subjective Subjective Feeling anxious Denies pain + loose stools O2 at night ROS ROS GEN: Denies fevers, chills, sweats CV: Denies chest pain RESP: Denies shortness of air, cough GI: Denies n/v NEURO: Denies confusion, dizziness Vital Sign Vital Signs Vital Signs Date Time Temp Pulse Resp B/P (MAP) Pulse Ox O2 Delivery O2 Flow Rate FiO2 10/25/16 07:00 98.3 59 18 99/41 (60) 100 Room Air 98.3 10/25/16 03:00 3.0 Physical Exam PHYSICAL EXAM GENERAL: Sitting on side of bed, calm, HEENT: PERRL, OC/OP pink and dry LUNGS: Clear HEART: S1S2 ABD: BS present, soft, NT EXT: No edema, no cyanosis. Right BKA-unremarkable. Wound left heel, bandaged. 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 Labs Lab Laboratory Tests Test 10/24/16 10:00 10/24/16 11:29 10/24/16 17:16 10/24/16 20:51 Prothrombin Time 18.4 SEC (11.7-14.0) Prothromb Time International Ratio 1.6 (0.8-1.1) Glucose (Fingerstick) 107 mg/dL (70-99) 207 mg/dL (70-99) 176 mg/dL (70-99) Test 10/25/16 05:15 10/25/16 07:24 White Blood Count 12.7 x10^3/uL (4.0-11.0) Red Blood Count 2.76 x10^6/uL (4.30-5.70) Hemoglobin 8.3 g/dL (13.0-17.5) Hematocrit 24.5 % (39.0-53.0) Mean Corpuscular Volume 89 fL (79-100) Mean Corpuscular Hemoglobin 30 pg (25-35) Mean Corpuscular Hemoglobin Concent 34 g/dL (31-37) Red Cell Distribution Width 17.0 % (11.5-14.5) Platelet Count 299 x10^3/uL (140-400) Neutrophils (%) (Auto) 84 % (31-73) Lymphocytes (%) (Auto) 7 % (24-48) Monocytes (%) (Auto) 7 % (0-9) Eosinophils (%) (Auto) 2 % (0-3) Basophils (%) (Auto) 0 % (0-3) Neutrophils # (Auto) 10.7 x10^3uL (1.8-7.7) Lymphocytes # (Auto) 0.9 x10^3/uL (1.0-4.8) Monocytes # (Auto) 0.9 x10^3/uL (0.0-1.1) Eosinophils # (Auto) 0.2 x10^3/uL (0.0-0.7) Basophils # (Auto) 0.0 x10^3/uL (0.0-0.2) Prothrombin Time 23.0 SEC (11.7-14.0) Prothromb Time International Ratio 2.2 (0.8-1.1) Glucose (Fingerstick) 179 mg/dL (70-99) EXAM: Chest, single view. HISTORY: Aspiration. COMPARISON: 10/22/2016. FINDINGS: A frontal view of the chest is obtained. There is no infiltrate, effusion or pneumothorax. The heart is normal in size for portable technique. IMPRESSION: No acute pulmonary finding. Micro BLOOD CULTURE Preliminary NO GROWTH AFTER 2 DAY Objective Assessment GI bleed Fever, better Leukocytosis, slowly trending down ESRD on HD DM Possible aspiration. CXR unremarkable Lactic acidosis h/o MRSA Plan Plan of Care D/c Zosyn- wean soon - CXR clean vanc times one dose, 10/22 Cultures NGTD supportive care F/u C-diff but unlikely given no cramps/bloating/Fever and WBC better Attending Co-Sign Attending Co-Sign The patient was seen and interviewed as well as examined at the bedside. The chart was reviewed. The case was discussed. Agree with the plan of care. MANUEL PEDROZA APRN October 25, 2016 09:09 THOMAS DANIELSON MD October 25, 2016 13:01
[2016-10-25 10:52] VITALS: BP 98/53
--- NOTE | 2016-10-25 11:06 | PDOC ---
PROGRESS NOTES Subjective Subjective anxious today Objective Objective Vital Signs Date Time Temp Pulse Resp B/P (MAP) Pulse Ox O2 Delivery O2 Flow Rate FiO2 10/25/16 10:52 98.2 59 20 98/53 (68) 92 Room Air 98.2 10/25/16 03:00 3.0 Intake and Output 10/25/16 07:00 Intake Total 1000 ml Balance 1000 ml Intake Oral 1000 ml # Voids 1 # Bowel Movements 1 Physical Exam Abdomen: Normal bowel sounds, Soft Heart: Other (irregularly irregular, S1-S2) Extremities: Other (status post amputation) General: Alert, Oriented X3, Cooperative HEENT: Atraumatic, PERRLA Lungs: Clear to auscultation MUSCULOSKELETAL: Other (LE AMP) Neuro: Normal speech Psych/Mental Status: Other (ANXIOUS AFFECT) Skin: No rashes, No breakdown, No significant lesion COMMENT Rt BKA Assessment Assessment FINAL IMPRESSION: 1. Acute gastrointestinal bleed, possible upper gastrointestinal source. 2. Leukocytosis with elevated temperature, possible aspiration pneumonia. 3. End-stage renal disease, on hemodialysis. 4. Chronic atrial fibrillation, on Coumadin. 5. Anemia secondary to acute gastrointestinal blood loss. 6. Diabetes, insulin-dependent. 7. Chronic systolic heart failure, stable. 8. Right [id number] amputation. 9. Stage 2 ulcer, left foot. 10 .sarika troponin ,?demand ischemia PLAN: transfered out of icu 10/24 transfused prn, Hb 8.4 EGD no active bleeding lesions identified resumed coumadin.inr 2.3 today iv antibiotics for aspiration, wbc 12 trending down Dialysis wednesday. cxr imrpoved Problems: Comment Review of Relevant I have reviewed the following items maria teresa (where applicable) has been applied. Labs Laboratory Tests Test 10/24/16 11:29 10/24/16 17:16 10/24/16 20:51 10/25/16 05:15 Glucose (Fingerstick) 107 mg/dL (70-99) 207 mg/dL (70-99) 176 mg/dL (70-99) White Blood Count 12.7 x10^3/uL (4.0-11.0) Red Blood Count 2.76 x10^6/uL (4.30-5.70) Hemoglobin 8.3 g/dL (13.0-17.5) Hematocrit 24.5 % (39.0-53.0) Mean Corpuscular Volume 89 fL (79-100) Mean Corpuscular Hemoglobin 30 pg (25-35) Mean Corpuscular Hemoglobin Concent 34 g/dL (31-37) Red Cell Distribution Width 17.0 % (11.5-14.5) Platelet Count 299 x10^3/uL (140-400) Neutrophils (%) (Auto) 84 % (31-73) Lymphocytes (%) (Auto) 7 % (24-48) Monocytes (%) (Auto) 7 % (0-9) Eosinophils (%) (Auto) 2 % (0-3) Basophils (%) (Auto) 0 % (0-3) Neutrophils # (Auto) 10.7 x10^3uL (1.8-7.7) Lymphocytes # (Auto) 0.9 x10^3/uL (1.0-4.8) Monocytes # (Auto) 0.9 x10^3/uL (0.0-1.1) Eosinophils # (Auto) 0.2 x10^3/uL (0.0-0.7) Basophils # (Auto) 0.0 x10^3/uL (0.0-0.2) Prothrombin Time 23.0 SEC (11.7-14.0) Prothromb Time International Ratio 2.2 (0.8-1.1) Test 10/25/16 07:24 Glucose (Fingerstick) 179 mg/dL (70-99) Microbiology 10/22/16 Blood Culture - Preliminary, Resulted NO GROWTH AFTER 2 DAYS Medications Current Medications Magnesium Sulfate/ Dextrose 50 ml @ 25 mls/hr PRN DAILY PRN IV for Mag < 1.7 on am labs; Start 10/25/16 at 08:00 Warfarin Sodium (Coumadin Per Pharmacy) 1 each PRN DAILY PRN MC SEE COMMENTS Last administered on 10/24/16 12:15; Start 10/24/16 at 12:00 Warfarin Sodium (Coumadin) 3 mg 1X WARF ONCE PO Last administered on 17:22; Start 10/24/16 at 16:00; Stop 10/24/16 at 16:01; Status DC Vitals/I & O Vital Sign - Last 24 Hours 10/24/16 10/24/16 10/24/16 10/24/16 12:00 12:00 12:16 12:50 Temp 98.0 98.0 Pulse 66 Resp 16 16 18 B/P (MAP) 102/69 (80) Pulse Ox 100 99 99 O2 Delivery Nasal Cannula Nasal Cannula Nasal Cannula Nasal Cannula O2 Flow Rate 3.0 3.0 3.0 3.0 10/24/16 10/24/16 10/24/16 10/24/16 13:00 14:00 15:00 16:00 Temp 98.2 98.2 Pulse 73 73 68 63 Resp 16 16 18 18 B/P (MAP) 107/55 (72) 90/49 (63) 78/54 (62) 96/47 (63) Pulse Ox 100 100 100 97 O2 Delivery Nasal Cannula Nasal Cannula Nasal Cannula Room Air O2 Flow Rate 3.0 3.0 3.0 10/24/16 10/24/16 10/24/16 10/25/16 19:30 21:00 23:00 03:00 Temp 98.1 98.4 97.7 98.1 98.4 97.7 Pulse 57 74 67 Resp 16 20 14 B/P (MAP) 99/46 (63) 78/46 (57) 94/48 (63) Pulse Ox 100 89 99 O2 Delivery Room Air Room Air Room Air Nasal Cannula O2 Flow Rate 3.0 10/25/16 10/25/16 10/25/16 07:00 08:00 10:52 Temp 98.3 98.2 98.3 98.2 Pulse 59 59 Resp 18 20 B/P (MAP) 99/41 (60) 98/53 (68) Pulse Ox 100 92 O2 Delivery Room Air Room Air Room Air Intake and Output 10/24/16 10/24/16 10/25/16 15:00 23:00 07:00 Intake Total 300 ml 700 ml Balance 300 ml 700 ml RADHA MEYER MD October 25, 2016 11:06
--- NOTE | 2016-10-25 13:23 | PDOC ---
PROGRESS NOTES Subjective Subjective The patient is feeling better today and his blood pressure has improved. He is able to sit up and not become hypotensive and dizzy. No cardiac complaints. Objective Objective Vital Signs Date Time Temp Pulse Resp B/P (MAP) Pulse Ox O2 Delivery O2 Flow Rate FiO2 10/25/16 10:52 98.2 59 20 98/53 (68) 92 Room Air 98.2 10/25/16 03:00 3.0 Intake and Output 10/25/16 07:00 Intake Total 1000 ml Balance 1000 ml Intake Oral 1000 ml # Voids 1 # Bowel Movements 1 Physical Exam Physical Exam No significant changes in cardiac exam Assessment Assessment Patient seems to be improving. No apparent acute bleeding. Compensated cardiac-vazquez. I agree with present plan. Comment Review of Relevant I have reviewed the following items maria teresa (where applicable) has been applied. Labs Laboratory Tests Test 10/23/16 16:25 10/23/16 17:57 10/24/16 05:00 10/24/16 07:42 White Blood Count 24.6 x10^3/uL (4.0-11.0) 21.0 x10^3/uL (4.0-11.0) Red Blood Count 2.67 x10^6/uL (4.30-5.70) 2.72 x10^6/uL (4.30-5.70) Hemoglobin 7.8 g/dL (13.0-17.5) 8.3 g/dL (13.0-17.5) Hematocrit 23.6 % (39.0-53.0) 24.1 % (39.0-53.0) Mean Corpuscular Volume 89 fL (79-100) 88 fL (79-100) Mean Corpuscular Hemoglobin 29 pg (25-35) 31 pg (25-35) Mean Corpuscular Hemoglobin Concent 33 g/dL (31-37) 35 g/dL (31-37) Red Cell Distribution Width 17.0 % (11.5-14.5) 17.5 % (11.5-14.5) Platelet Count 269 x10^3/uL (140-400) 293 x10^3/uL (140-400) Glucose (Fingerstick) 134 mg/dL (70-99) 150 mg/dL (70-99) Neutrophils (%) (Auto) 90 % (31-73) Lymphocytes (%) (Auto) 4 % (24-48) Monocytes (%) (Auto) 5 % (0-9) Eosinophils (%) (Auto) 1 % (0-3) Basophils (%) (Auto) 0 % (0-3) Neutrophils # (Auto) 18.8 x10^3uL (1.8-7.7) Lymphocytes # (Auto) 0.8 x10^3/uL (1.0-4.8) Monocytes # (Auto) 1.1 x10^3/uL (0.0-1.1) Eosinophils # (Auto) 0.3 x10^3/uL (0.0-0.7) Basophils # (Auto) 0.0 x10^3/uL (0.0-0.2) Segmented Neutrophils % 86 % (35-66) Band Neutrophils % 6 % (0-9) Lymphocytes % 6 % (24-48) Monocytes % 1 % (0-10) Basophils % 1 % (0-3) Platelet Estimate Adequate (ADEQUATE) Poikilocytosis Present Anisocytosis Present Sodium Level 135 mmol/L (136-145) Potassium Level 4.1 mmol/L (3.5-5.1) Chloride Level 96 mmol/L (98-107) Carbon Dioxide Level 27 mmol/L (21-32) Anion Gap 12 (6-14) Blood Urea Nitrogen 56 mg/dL (8-26) Creatinine 4.7 mg/dL (0.7-1.3) Estimated GFR (Cockcroft-Gault) 12.8 Glucose Level 148 mg/dL (70-99) Calcium Level 8.5 mg/dL (8.5-10.1) Test 10/24/16 10:00 10/24/16 11:29 10/24/16 17:16 10/24/16 20:51 Prothrombin Time 18.4 SEC (11.7-14.0) Prothromb Time International Ratio 1.6 (0.8-1.1) Glucose (Fingerstick) 107 mg/dL (70-99) 207 mg/dL (70-99) 176 mg/dL (70-99) Test 10/25/16 05:15 10/25/16 07:24 10/25/16 11:34 White Blood Count 12.7 x10^3/uL (4.0-11.0) Red Blood Count 2.76 x10^6/uL (4.30-5.70) Hemoglobin 8.3 g/dL (13.0-17.5) Hematocrit 24.5 % (39.0-53.0) Mean Corpuscular Volume 89 fL (79-100) Mean Corpuscular Hemoglobin 30 pg (25-35) Mean Corpuscular Hemoglobin Concent 34 g/dL (31-37) Red Cell Distribution Width 17.0 % (11.5-14.5) Platelet Count 299 x10^3/uL (140-400) Neutrophils (%) (Auto) 84 % (31-73) Lymphocytes (%) (Auto) 7 % (24-48) Monocytes (%) (Auto) 7 % (0-9) Eosinophils (%) (Auto) 2 % (0-3) Basophils (%) (Auto) 0 % (0-3) Neutrophils # (Auto) 10.7 x10^3uL (1.8-7.7) Lymphocytes # (Auto) 0.9 x10^3/uL (1.0-4.8) Monocytes # (Auto) 0.9 x10^3/uL (0.0-1.1) Eosinophils # (Auto) 0.2 x10^3/uL (0.0-0.7) Basophils # (Auto) 0.0 x10^3/uL (0.0-0.2) Prothrombin Time 23.0 SEC (11.7-14.0) Prothromb Time International Ratio 2.2 (0.8-1.1) Glucose (Fingerstick) 179 mg/dL (70-99) 237 mg/dL (70-99) Laboratory Tests Test 10/24/16 17:16 10/24/16 20:51 10/25/16 05:15 10/25/16 07:24 Glucose (Fingerstick) 207 mg/dL (70-99) 176 mg/dL (70-99) 179 mg/dL (70-99) White Blood Count 12.7 x10^3/uL (4.0-11.0) Red Blood Count 2.76 x10^6/uL (4.30-5.70) Hemoglobin 8.3 g/dL (13.0-17.5) Hematocrit 24.5 % (39.0-53.0) Mean Corpuscular Volume 89 fL (79-100) Mean Corpuscular Hemoglobin 30 pg (25-35) Mean Corpuscular Hemoglobin Concent 34 g/dL (31-37) Red Cell Distribution Width 17.0 % (11.5-14.5) Platelet Count 299 x10^3/uL (140-400) Neutrophils (%) (Auto) 84 % (31-73) Lymphocytes (%) (Auto) 7 % (24-48) Monocytes (%) (Auto) 7 % (0-9) Eosinophils (%) (Auto) 2 % (0-3) Basophils (%) (Auto) 0 % (0-3) Neutrophils # (Auto) 10.7 x10^3uL (1.8-7.7) Lymphocytes # (Auto) 0.9 x10^3/uL (1.0-4.8) Monocytes # (Auto) 0.9 x10^3/uL (0.0-1.1) Eosinophils # (Auto) 0.2 x10^3/uL (0.0-0.7) Basophils # (Auto) 0.0 x10^3/uL (0.0-0.2) Prothrombin Time 23.0 SEC (11.7-14.0) Prothromb Time International Ratio 2.2 (0.8-1.1) Test 10/25/16 11:34 Glucose (Fingerstick) 237 mg/dL (70-99) Microbiology 10/22/16 Blood Culture - Preliminary, Resulted NO GROWTH AFTER 2 DAYS Medications Current Medications Fentanyl Citrate (Fentanyl 2ml Vial) 25 mcg PRN Q15MIN PRN IV PAIN GREATER THAN 3/10; Start 10/22/16 at 06:30; Stop 10/23/16 at 06:29; Status DC Pantoprazole Sodium 80 mg/ Sodium Chloride 100 ml @ 10 mls/hr Q10H IV Last administered on 10/23/16 01:30; Start 10/22/16 at 07:00; Stop 10/23/16 at 15:46 ; Status DC Pantoprazole Sodium (Protonix Vial) 80 mg 1X ONCE IVP Last administered on 06:52; Start 10/22/16 at 07:00; Stop 10/22/16 at 07:01; Status DC Octreotide Acetate 500 mcg/ Sodium Chloride 101 ml @ 0 mls/hr CONT PRN IV SEE I /O RECORD Last administered on 10/22/16 06:55; Start 10/22/16 at 07:00; Stop at 11:05; Status DC Octreotide Acetate (SandoSTATIN) 100 mcg 1X ONCE IV Last administered on 06:52; Start 10/22/16 at 07:00; Stop 10/22/16 at 07:01; Status DC Metoclopramide HCl (Reglan) 10 mg 1X ONCE IV Last administered on 10/22/16 06 :51; Start 10/22/16 at 07:00; Stop 10/22/16 at 07:01; Status DC Ondansetron HCl (Zofran) 4 mg 1X ONCE IV Last administered on 10/22/16 06:51 ; Start 10/22/16 at 07:00; Stop 10/22/16 at 07:01; Status DC Iohexol (Omnipaque 300 Mg/ml) 75 ml 1X ONCE IV ; Start 10/22/16 at 07:00; Stop 10/22/16 at 07:01; Status DC Info (Do NOT chart on this entry -- for MONITORING) 1 each PRN DAILY PRN MC SEE COMMENTS; Start 10/22/16 at 06:45; Stop 10/23/16 at 07:26; Status DC Iohexol (Omnipaque 350 Mg/ml) 90 ml 1X ONCE IV Last administered on 10/22/16 07:34; Start 10/22/16 at 07:00; Stop 10/22/16 at 07:01; Status DC Info (Do NOT chart on this entry -- for MONITORING) 1 each PRN DAILY PRN MC SEE COMMENTS; Start 10/22/16 at 07:00; Stop 10/24/16 at 06:59; Status DC Furosemide (Lasix) 40 mg 1X PRN PRN IV blood transfusion; Start 10/22/16 at 07: 45; Stop 10/23/16 at 07:44; Status DC Phytonadione (Mephyton) 10 mg 1X ONCE PO Last administered on 10/22/16 09:18 ; Start 10/22/16 at 09:15; Stop 10/22/16 at 09:16; Status DC Fentanyl Citrate (Fentanyl 2ml Vial) 50 mcg PRN Q2HR PRN IV PAIN Last administered on 10/22/16 20:52; Start 10/22/16 at 09:45; Stop 10/23/16 at 09:44 ; Status DC Acetaminophen (Tylenol) 650 mg PRN Q4HRS PRN PO FEVER; Start 10/22/16 at 09:45 ; Stop 10/23/16 at 09:44; Status DC Insulin Aspart (NovoLOG) 0-5 UNITS TIDWMEALS SQ ; Start 10/22/16 at 12:00; Stop 10/24/16 at 10:42; Status DC Dextrose (Dextrose 50%-Water Syringe) 12.5 gm PRN Q15MIN PRN IV SEE COMMENTS; Start 10/22/16 at 09:45; Stop 10/22/16 at 12:42; Status DC Norepinephrine Bitartrate 250 ml @ As Directed STK-MED ONCE IV ; Start at 11:03; Stop 10/22/16 at 11:04; Status DC Norepinephrine Bitartrate 250 ml @ 0 mls/hr CONT PRN IV SEE I/O RECORD Last administered on 10/22/16 11:11; Start 10/22/16 at 11:15 Vancomycin HCl 2 gm/Sodium Chloride 500 ml @ 250 mls/hr 1X ONCE IV Last administered on 10/22/16 18:28; Start 10/22/16 at 11:30; Stop 10/22/16 at 13:29 ; Status DC Piperacillin Sod/ Tazobactam Sod 2.25 gm/Sodium Chloride 50 ml @ 100 mls/hr Q8HRS IV Last administered on 10/25/16 05:52; Start 10/22/16 at 12:00; Stop at 13:00; Status DC Piperacillin Sod/ Tazobactam Sod (Zosyn Per Pharmacy) 1 each PRN DAILY PRN MC SEE COMMENTS; Start 10/22/16 at 11:30 Insulin Aspart (NovoLOG) 0-7 UNITS TIDWMEALS SQ Last administered on 10/25/16 12:00; Start 10/22/16 at 12:00 Dextrose (Dextrose 50%-Water Syringe) 12.5 gm PRN Q15MIN PRN IV SEE COMMENTS; Start 10/22/16 at 11:45 Darbepoetin Noel (Aranesp) 60 mcg 1X ONCE SQ Last administered on 10/22/16 15 :48; Start 10/22/16 at 13:00; Stop 10/22/16 at 13:01; Status DC Sodium Chloride 1,000 ml @ 1,000 mls/hr Q1H PRN IV hypotension; Start 10/22/16 at 15:04; Stop 10/22/16 at 21:03; Status DC Albumin Human 200 ml @ 200 mls/hr 1X PRN PRN IV Hypotension; Start 10/22/16 at 15:15; Stop 10/22/16 at 21:14; Status DC Sodium Chloride 1,000 ml @ 400 mls/hr Q2H30M PRN IV PATENCY; Start 10/22/16 at 15:04; Stop 10/23/16 at 03:03; Status DC Info (PHARMACY MONITORING -- do not chart) 1 each PRN DAILY PRN MC SEE COMMENTS ; Start 10/22/16 at 15:15; Status UNV Info (PHARMACY MONITORING -- do not chart) 1 each PRN DAILY PRN MC SEE COMMENTS ; Start 10/22/16 at 15:15 Sodium Chloride 1,000 ml @ 30 mls/hr Q24H IV Last administered on 10/24/16 20 :38; Start 10/23/16 at 11:30; Stop 10/25/16 at 11:05; Status DC Nystatin (Nystop) 1 leana BID TP Last administered on 10/24/16 20:48; Start at 22:00 Fentanyl Citrate (Fentanyl 2ml Vial) 25 mcg PRN Q2HR PRN IV SEVERE PAIN Last administered on 10/24/16 12:16; Start 10/22/16 at 21:15 Mupirocin (Bactroban) 1 leana BID NS Last administered on 10/24/16 20:48; Start 10/23/16 at 09:00 Ondansetron HCl (Zofran) 4 mg PRN Q6HRS PRN IV NAUSEA/VOMITING Last administered on 10/23/16 13:12; Start 10/23/16 at 07:30 Etomidate (Amidate) 20 mg STK-MED ONCE IV ; Start 10/23/16 at 15:03; Stop at 15:04; Status DC Propofol 20 ml @ As Directed STK-MED ONCE IV ; Start 10/23/16 at 15:03; Stop at 15:04; Status DC Pantoprazole Sodium (Protonix) 40 mg BIDAC PO Last administered on 10/25/16 08 :36; Start 10/23/16 at 16:30 Alprazolam (Xanax) 1 mg TID PO Last administered on 10/25/16 08:36; Start at 21:00; Stop 10/25/16 at 11:05; Status DC Sodium Chloride 1,000 ml @ 1,000 mls/hr Q1H PRN IV hypotension; Start 10/24/16 at 07:23; Stop 10/24/16 at 13:22; Status DC Sodium Chloride 1,000 ml @ 400 mls/hr Q2H30M PRN IV PATENCY; Start 10/24/16 at 07:23; Stop 10/24/16 at 19:22; Status DC Info (PHARMACY MONITORING -- do not chart) 1 each PRN DAILY PRN MC SEE COMMENTS ; Start 10/24/16 at 07:30; Status Cancel Warfarin Sodium (Coumadin Per Pharmacy) 1 each PRN DAILY PRN MC SEE COMMENTS Last administered on 10/24/16 12:15; Start 10/24/16 at 12:00 Warfarin Sodium (Coumadin) 3 mg 1X WARF ONCE PO Last administered on 17:22; Start 10/24/16 at 16:00; Stop 10/24/16 at 16:01; Status DC Magnesium Sulfate/ Dextrose 50 ml @ 25 mls/hr PRN DAILY PRN IV for Mag < 1.7 on am labs; Start 10/25/16 at 08:00 Alprazolam (Xanax) 1 mg QID PO Last administered on 10/25/16 13:15; Start at 13:00 Active Scripts Active Senna-Time S Tablet (Sennosides/Docusate Sodium) 1 Each Tablet 2 Tab PO PRN DAILY PRN Novolog Flexpen (Insulin Aspart) 300 Units/3 Ml Insuln.pen 0 Units SQ TIDWMEALS Reported Sapphire-Sara Tablet (Folic Acid/Vitamin B Comp W-C) 0.8 Mg Tablet 0.8 Mg PO Alprazolam 1 Mg Tablet 1 Tab PO TID Hydrocodone-Apap 5-325 (Hydrocodone Bit/Acetaminophen) 1 Each Tablet 1 Tab PO PRN Q8HRS PRN Warfarin Sodium 2 Mg Tablet 1 Tab PO DAILY Actos (Pioglitazone Hcl) 45 Mg Tablet 1 Tab PO DAILY Reglan (Metoclopramide Hcl) 10 Mg Tablet 10 Mg PO QIDACHS Lomotil Tablet (Diphenoxylate Hcl/Atropine) 1 Each Tablet 1 Tab PO QID PRN Sulfamethoxazole-Tmp Ds Tablet (Sulfamethoxazole/Trimethoprim) 1 Each Tablet 1 Tab PO BID Ramipril 10 Mg Capsule 5 Mg PO DAILY Tums (Calcium Carbonate) 300 Mg Tab.chew 300 Mg PO TIDAC Warfarin Sodium 4 Mg Tablet 5 Mg PO DAILY Escitalopram Oxalate 10 Mg Tablet 40 Tab PO DAILY Atorvastatin Calcium 20 Mg Tablet 40 Mg PO DAILY Vitals/I & O Vital Sign - Last 24 Hours 10/24/16 10/24/16 10/24/16 10/24/16 14:00 15:00 16:00 19:30 Temp 98.2 98.1 98.2 98.1 Pulse 73 68 63 57 Resp 16 18 18 16 B/P (MAP) 90/49 (63) 78/54 (62) 96/47 (63) 99/46 (63) Pulse Ox 100 100 97 100 O2 Delivery Nasal Cannula Nasal Cannula Room Air Room Air O2 Flow Rate 3.0 3.0 10/24/16 10/24/16 10/25/16 10/25/16 21:00 23:00 03:00 07:00 Temp 98.4 97.7 98.3 98.4 97.7 98.3 Pulse 74 67 59 Resp 20 14 18 B/P (MAP) 78/46 (57) 94/48 (63) 99/41 (60) Pulse Ox 89 99 100 O2 Delivery Room Air Room Air Nasal Cannula Room Air O2 Flow Rate 3.0 10/25/16 10/25/16 08:00 10:52 Temp 98.2 98.2 Pulse 59 Resp 20 B/P (MAP) 98/53 (68) Pulse Ox 92 O2 Delivery Room Air Room Air Intake and Output 10/24/16 10/24/16 10/25/16 15:00 23:00 07:00 Intake Total 300 ml 700 ml Balance 300 ml 700 ml JARON RAMOS MD October 25, 2016 13:23
[2016-10-25] MEDS ORDERED: WARFARIN 3 MG TABLET. PO ONE (16:00)
[2016-10-25] MEDS: fentaNYL PF VIAL 100 MCG/2 ML VIAL IV PRN (18:43)
[2016-10-25 19:47] VITALS: BP 105/69
[2016-10-25 23:00] VITALS: BP 103/54
[2016-10-26 03:42] LABS: BASO # 0.1 x10^3/uL (0.0-0.2); BASO % 1 % (0-3); EOS % 6 % (0-3); HEMATOCRIT 24.4 % (39.0-53.0); LYMPH % 12 % (24-48); MEAN CORPUSCULAR HEMOGLOBIN 30 pg (25-35); MEAN CORPUSCULAR HGB CONC 33 g/dL (31-37); MEAN CORPUSCULAR VOLUME 92 fL (79-100); MONO % 9 % (0-9); NEUT % 71 % (31-73); PLATELET COUNT 296 x10^3/uL (140-400); RED BLOOD COUNT 2.65 x10^6/uL (4.30-5.70)
[2016-10-26 03:48] VITALS: BP 102/29
[2016-10-26 04:02] LABS: ALBUMIN 2.7 g/dL (3.4-5.0); CALCIUM 8.1 mg/dL (8.5-10.1); CREATININE 5.4 mg/dL (0.7-1.3); GFR 10.9; PHOSPHORUS 5.2 mg/dL (2.6-4.7); POTASSIUM 3.9 mmol/L (3.5-5.1)
[2016-10-26 04:08] LABS: INR 2.5 (0.8-1.1); PROTHROMBIN TIME PATIENT 25.2 SEC (11.7-14.0)
[2016-10-26 07:00] VITALS: BP 106/49
[2016-10-26] MEDS: PANTOPRAZOLE 40 MG TABLET.DR. PO SCH ×2 (07:42→17:39)
[2016-10-26] MEDS: ALPRAZolam 1 MG TABLET PO SCH ×4 (08:05→20:13)
--- NOTE | 2016-10-26 08:06 | PDOC ---
Infectious Disease Note Subjective Subjective Occ cough but nothing unusual Denies pain + loose stools times one O2 at night ROS ROS GEN: Denies fevers, chills, sweats HEENT: Denies blurred vision, sore throat CV: Denies chest pain RESP: Denies shortness of air, cough GI: Denies n/v/d NEURO: Denies confusion, dizziness MSK: Denies weakness, joint pain/swelling Vital Sign Vital Signs Vital Signs Date Time Temp Pulse Resp B/P (MAP) Pulse Ox O2 Delivery O2 Flow Rate FiO2 10/26/16 07:49 Room Air 10/26/16 03:48 97.6 58 18 102/29 (53) 99 3.0 97.6 Physical Exam PHYSICAL EXAM GENERAL: NAD, coop HEENT: PERRL, OC/OP pink and dry LUNGS: Clear HEART: S1S2 ABD: BS present, soft, NT EXT: No edema, no cyanosis. Right BKA-unremarkable. Wound left heel, bandaged. [employer]: Alert, oriented x 3, no focal neurologic deficit SKIN: No rash Peripheral IVs. Labs Lab Laboratory Tests Test 10/25/16 11:34 10/25/16 17:20 10/25/16 20:11 10/26/16 02:55 Glucose (Fingerstick) 237 mg/dL (70-99) 224 mg/dL (70-99) 188 mg/dL (70-99) White Blood Count 8.0 x10^3/uL (4.0-11.0) Red Blood Count 2.65 x10^6/uL (4.30-5.70) Hemoglobin 8.0 g/dL (13.0-17.5) Hematocrit 24.4 % (39.0-53.0) Mean Corpuscular Volume 92 fL (79-100) Mean Corpuscular Hemoglobin 30 pg (25-35) Mean Corpuscular Hemoglobin Concent 33 g/dL (31-37) Red Cell Distribution Width 17.0 % (11.5-14.5) Platelet Count 296 x10^3/uL (140-400) Neutrophils (%) (Auto) 71 % (31-73) Lymphocytes (%) (Auto) 12 % (24-48) Monocytes (%) (Auto) 9 % (0-9) Eosinophils (%) (Auto) 6 % (0-3) Basophils (%) (Auto) 1 % (0-3) Neutrophils # (Auto) 5.7 x10^3uL (1.8-7.7) Lymphocytes # (Auto) 1.0 x10^3/uL (1.0-4.8) Monocytes # (Auto) 0.7 x10^3/uL (0.0-1.1) Eosinophils # (Auto) 0.5 x10^3/uL (0.0-0.7) Basophils # (Auto) 0.1 x10^3/uL (0.0-0.2) Prothrombin Time 25.2 SEC (11.7-14.0) Prothromb Time International Ratio 2.5 (0.8-1.1) Sodium Level 134 mmol/L (136-145) Potassium Level 3.9 mmol/L (3.5-5.1) Chloride Level 95 mmol/L (98-107) Carbon Dioxide Level 27 mmol/L (21-32) Anion Gap 12 (6-14) Blood Urea Nitrogen 42 mg/dL (8-26) Creatinine 5.4 mg/dL (0.7-1.3) Estimated GFR (Cockcroft-Gault) 10.9 Glucose Level 212 mg/dL (70-99) Calcium Level 8.1 mg/dL (8.5-10.1) Phosphorus Level 5.2 mg/dL (2.6-4.7) Magnesium Level 1.9 mg/dL (1.8-2.4) Albumin 2.7 g/dL (3.4-5.0) Objective Assessment GI bleed Fever, better Leukocytosis - resolved ESRD on HD DM Possible aspiration. CXR unremarkable Lactic acidosis h/o MRSA Plan Plan of Care Cont off abx Please call with questions THOMAS DANIELSON MD October 26, 2016 08:06
[2016-10-26] MEDS: INSULIN ASPART 300 UNITS/3 ML INSULN.PEN SQ SCH ×3 (08:09→17:00)
--- NOTE | 2016-10-26 08:53 | PDOC ---
G I PROGRESS NOTE Subjective No GI complaints. Eating well. No further overt bleeding. Thinks home maybe today or tomorrow. Physical Exam Lungs clear. RRR Abdomen soft, not tender nor distended. Review of Relevant I have reviewed the following items maria teresa (where applicable) has been applied. Labs Laboratory Tests Test 10/24/16 10:00 10/24/16 11:29 10/24/16 17:16 10/24/16 20:51 Prothrombin Time 18.4 SEC (11.7-14.0) Prothromb Time International Ratio 1.6 (0.8-1.1) Glucose (Fingerstick) 107 mg/dL (70-99) 207 mg/dL (70-99) 176 mg/dL (70-99) Test 10/25/16 05:15 10/25/16 07:24 10/25/16 11:34 10/25/16 17:20 White Blood Count 12.7 x10^3/uL (4.0-11.0) Red Blood Count 2.76 x10^6/uL (4.30-5.70) Hemoglobin 8.3 g/dL (13.0-17.5) Hematocrit 24.5 % (39.0-53.0) Mean Corpuscular Volume 89 fL (79-100) Mean Corpuscular Hemoglobin 30 pg (25-35) Mean Corpuscular Hemoglobin Concent 34 g/dL (31-37) Red Cell Distribution Width 17.0 % (11.5-14.5) Platelet Count 299 x10^3/uL (140-400) Neutrophils (%) (Auto) 84 % (31-73) Lymphocytes (%) (Auto) 7 % (24-48) Monocytes (%) (Auto) 7 % (0-9) Eosinophils (%) (Auto) 2 % (0-3) Basophils (%) (Auto) 0 % (0-3) Neutrophils # (Auto) 10.7 x10^3uL (1.8-7.7) Lymphocytes # (Auto) 0.9 x10^3/uL (1.0-4.8) Monocytes # (Auto) 0.9 x10^3/uL (0.0-1.1) Eosinophils # (Auto) 0.2 x10^3/uL (0.0-0.7) Basophils # (Auto) 0.0 x10^3/uL (0.0-0.2) Prothrombin Time 23.0 SEC (11.7-14.0) Prothromb Time International Ratio 2.2 (0.8-1.1) Glucose (Fingerstick) 179 mg/dL (70-99) 237 mg/dL (70-99) 224 mg/dL (70-99) Test 10/25/16 20:11 10/26/16 02:55 Glucose (Fingerstick) 188 mg/dL (70-99) White Blood Count 8.0 x10^3/uL (4.0-11.0) Red Blood Count 2.65 x10^6/uL (4.30-5.70) Hemoglobin 8.0 g/dL (13.0-17.5) Hematocrit 24.4 % (39.0-53.0) Mean Corpuscular Volume 92 fL (79-100) Mean Corpuscular Hemoglobin 30 pg (25-35) Mean Corpuscular Hemoglobin Concent 33 g/dL (31-37) Red Cell Distribution Width 17.0 % (11.5-14.5) Platelet Count 296 x10^3/uL (140-400) Neutrophils (%) (Auto) 71 % (31-73) Lymphocytes (%) (Auto) 12 % (24-48) Monocytes (%) (Auto) 9 % (0-9) Eosinophils (%) (Auto) 6 % (0-3) Basophils (%) (Auto) 1 % (0-3) Neutrophils # (Auto) 5.7 x10^3uL (1.8-7.7) Lymphocytes # (Auto) 1.0 x10^3/uL (1.0-4.8) Monocytes # (Auto) 0.7 x10^3/uL (0.0-1.1) Eosinophils # (Auto) 0.5 x10^3/uL (0.0-0.7) Basophils # (Auto) 0.1 x10^3/uL (0.0-0.2) Prothrombin Time 25.2 SEC (11.7-14.0) Prothromb Time International Ratio 2.5 (0.8-1.1) Sodium Level 134 mmol/L (136-145) Potassium Level 3.9 mmol/L (3.5-5.1) Chloride Level 95 mmol/L (98-107) Carbon Dioxide Level 27 mmol/L (21-32) Anion Gap 12 (6-14) Blood Urea Nitrogen 42 mg/dL (8-26) Creatinine 5.4 mg/dL (0.7-1.3) Estimated GFR (Cockcroft-Gault) 10.9 Glucose Level 212 mg/dL (70-99) Calcium Level 8.1 mg/dL (8.5-10.1) Phosphorus Level 5.2 mg/dL (2.6-4.7) Magnesium Level 1.9 mg/dL (1.8-2.4) Albumin 2.7 g/dL (3.4-5.0) Laboratory Tests Test 10/25/16 11:34 10/25/16 17:20 10/25/16 20:11 10/26/16 02:55 Glucose (Fingerstick) 237 mg/dL (70-99) 224 mg/dL (70-99) 188 mg/dL (70-99) White Blood Count 8.0 x10^3/uL (4.0-11.0) Red Blood Count 2.65 x10^6/uL (4.30-5.70) Hemoglobin 8.0 g/dL (13.0-17.5) Hematocrit 24.4 % (39.0-53.0) Mean Corpuscular Volume 92 fL (79-100) Mean Corpuscular Hemoglobin 30 pg (25-35) Mean Corpuscular Hemoglobin Concent 33 g/dL (31-37) Red Cell Distribution Width 17.0 % (11.5-14.5) Platelet Count 296 x10^3/uL (140-400) Neutrophils (%) (Auto) 71 % (31-73) Lymphocytes (%) (Auto) 12 % (24-48) Monocytes (%) (Auto) 9 % (0-9) Eosinophils (%) (Auto) 6 % (0-3) Basophils (%) (Auto) 1 % (0-3) Neutrophils # (Auto) 5.7 x10^3uL (1.8-7.7) Lymphocytes # (Auto) 1.0 x10^3/uL (1.0-4.8) Monocytes # (Auto) 0.7 x10^3/uL (0.0-1.1) Eosinophils # (Auto) 0.5 x10^3/uL (0.0-0.7) Basophils # (Auto) 0.1 x10^3/uL (0.0-0.2) Prothrombin Time 25.2 SEC (11.7-14.0) Prothromb Time International Ratio 2.5 (0.8-1.1) Sodium Level 134 mmol/L (136-145) Potassium Level 3.9 mmol/L (3.5-5.1) Chloride Level 95 mmol/L (98-107) Carbon Dioxide Level 27 mmol/L (21-32) Anion Gap 12 (6-14) Blood Urea Nitrogen 42 mg/dL (8-26) Creatinine 5.4 mg/dL (0.7-1.3) Estimated GFR (Cockcroft-Gault) 10.9 Glucose Level 212 mg/dL (70-99) Calcium Level 8.1 mg/dL (8.5-10.1) Phosphorus Level 5.2 mg/dL (2.6-4.7) Magnesium Level 1.9 mg/dL (1.8-2.4) Albumin 2.7 g/dL (3.4-5.0) Microbiology 10/22/16 Blood Culture - Preliminary, Resulted NO GROWTH AFTER 3 DAYS Hemoglobin stable. Medications Current Medications Fentanyl Citrate (Fentanyl 2ml Vial) 25 mcg PRN Q15MIN PRN IV PAIN GREATER THAN 3/10; Start 10/22/16 at 06:30; Stop 10/23/16 at 06:29; Status DC Pantoprazole Sodium 80 mg/ Sodium Chloride 100 ml @ 10 mls/hr Q10H IV Last administered on 10/23/16 01:30; Start 10/22/16 at 07:00; Stop 10/23/16 at 15:46 ; Status DC Pantoprazole Sodium (Protonix Vial) 80 mg 1X ONCE IVP Last administered on 06:52; Start 10/22/16 at 07:00; Stop 10/22/16 at 07:01; Status DC Octreotide Acetate 500 mcg/ Sodium Chloride 101 ml @ 0 mls/hr CONT PRN IV SEE I /O RECORD Last administered on 10/22/16 06:55; Start 10/22/16 at 07:00; Stop at 11:05; Status DC Octreotide Acetate (SandoSTATIN) 100 mcg 1X ONCE IV Last administered on 06:52; Start 10/22/16 at 07:00; Stop 10/22/16 at 07:01; Status DC Metoclopramide HCl (Reglan) 10 mg 1X ONCE IV Last administered on 10/22/16 06 :51; Start 10/22/16 at 07:00; Stop 10/22/16 at 07:01; Status DC Ondansetron HCl (Zofran) 4 mg 1X ONCE IV Last administered on 10/22/16 06:51 ; Start 10/22/16 at 07:00; Stop 10/22/16 at 07:01; Status DC Iohexol (Omnipaque 300 Mg/ml) 75 ml 1X ONCE IV ; Start 10/22/16 at 07:00; Stop 10/22/16 at 07:01; Status DC Info (Do NOT chart on this entry -- for MONITORING) 1 each PRN DAILY PRN MC SEE COMMENTS; Start 10/22/16 at 06:45; Stop 10/23/16 at 07:26; Status DC Iohexol (Omnipaque 350 Mg/ml) 90 ml 1X ONCE IV Last administered on 10/22/16 07:34; Start 10/22/16 at 07:00; Stop 10/22/16 at 07:01; Status DC Info (Do NOT chart on this entry -- for MONITORING) 1 each PRN DAILY PRN MC SEE COMMENTS; Start 10/22/16 at 07:00; Stop 10/24/16 at 06:59; Status DC Furosemide (Lasix) 40 mg 1X PRN PRN IV blood transfusion; Start 10/22/16 at 07: 45; Stop 10/23/16 at 07:44; Status DC Phytonadione (Mephyton) 10 mg 1X ONCE PO Last administered on 10/22/16 09:18 ; Start 10/22/16 at 09:15; Stop 10/22/16 at 09:16; Status DC Fentanyl Citrate (Fentanyl 2ml Vial) 50 mcg PRN Q2HR PRN IV PAIN Last administered on 10/22/16 20:52; Start 10/22/16 at 09:45; Stop 10/23/16 at 09:44 ; Status DC Acetaminophen (Tylenol) 650 mg PRN Q4HRS PRN PO FEVER; Start 10/22/16 at 09:45 ; Stop 10/23/16 at 09:44; Status DC Insulin Aspart (NovoLOG) 0-5 UNITS TIDWMEALS SQ ; Start 10/22/16 at 12:00; Stop 10/24/16 at 10:42; Status DC Dextrose (Dextrose 50%-Water Syringe) 12.5 gm PRN Q15MIN PRN IV SEE COMMENTS; Start 10/22/16 at 09:45; Stop 10/22/16 at 12:42; Status DC Norepinephrine Bitartrate 250 ml @ As Directed STK-MED ONCE IV ; Start at 11:03; Stop 10/22/16 at 11:04; Status DC Norepinephrine Bitartrate 250 ml @ 0 mls/hr CONT PRN IV SEE I/O RECORD Last administered on 10/22/16 11:11; Start 10/22/16 at 11:15 Vancomycin HCl 2 gm/Sodium Chloride 500 ml @ 250 mls/hr 1X ONCE IV Last administered on 10/22/16 18:28; Start 10/22/16 at 11:30; Stop 10/22/16 at 13:29 ; Status DC Piperacillin Sod/ Tazobactam Sod 2.25 gm/Sodium Chloride 50 ml @ 100 mls/hr Q8HRS IV Last administered on 10/25/16 05:52; Start 10/22/16 at 12:00; Stop at 13:00; Status DC Piperacillin Sod/ Tazobactam Sod (Zosyn Per Pharmacy) 1 each PRN DAILY PRN MC SEE COMMENTS; Start 10/22/16 at 11:30 Insulin Aspart (NovoLOG) 0-7 UNITS TIDWMEALS SQ Last administered on 10/26/16 08:09; Start 10/22/16 at 12:00 Dextrose (Dextrose 50%-Water Syringe) 12.5 gm PRN Q15MIN PRN IV SEE COMMENTS; Start 10/22/16 at 11:45 Darbepoetin Noel (Aranesp) 60 mcg 1X ONCE SQ Last administered on 10/22/16 15 :48; Start 10/22/16 at 13:00; Stop 10/22/16 at 13:01; Status DC Sodium Chloride 1,000 ml @ 1,000 mls/hr Q1H PRN IV hypotension; Start 10/22/16 at 15:04; Stop 10/22/16 at 21:03; Status DC Albumin Human 200 ml @ 200 mls/hr 1X PRN PRN IV Hypotension; Start 10/22/16 at 15:15; Stop 10/22/16 at 21:14; Status DC Sodium Chloride 1,000 ml @ 400 mls/hr Q2H30M PRN IV PATENCY; Start 10/22/16 at 15:04; Stop 10/23/16 at 03:03; Status DC Info (PHARMACY MONITORING -- do not chart) 1 each PRN DAILY PRN MC SEE COMMENTS ; Start 10/22/16 at 15:15; Status UNV Info (PHARMACY MONITORING -- do not chart) 1 each PRN DAILY PRN MC SEE COMMENTS ; Start 10/22/16 at 15:15 Sodium Chloride 1,000 ml @ 30 mls/hr Q24H IV Last administered on 10/24/16 20 :38; Start 10/23/16 at 11:30; Stop 10/25/16 at 11:05; Status DC Nystatin (Nystop) 1 leana BID TP Last administered on 10/25/16 20:54; Start at 22:00 Fentanyl Citrate (Fentanyl 2ml Vial) 25 mcg PRN Q2HR PRN IV SEVERE PAIN Last administered on 10/25/16 18:43; Start 10/22/16 at 21:15 Mupirocin (Bactroban) 1 leana BID NS Last administered on 10/25/16 20:54; Start 10/23/16 at 09:00 Ondansetron HCl (Zofran) 4 mg PRN Q6HRS PRN IV NAUSEA/VOMITING Last administered on 10/23/16 13:12; Start 10/23/16 at 07:30 Etomidate (Amidate) 20 mg STK-MED ONCE IV ; Start 10/23/16 at 15:03; Stop at 15:04; Status DC Propofol 20 ml @ As Directed STK-MED ONCE IV ; Start 10/23/16 at 15:03; Stop at 15:04; Status DC Pantoprazole Sodium (Protonix) 40 mg BIDAC PO Last administered on 10/26/16 07 :42; Start 10/23/16 at 16:30 Alprazolam (Xanax) 1 mg TID PO Last administered on 10/25/16 08:36; Start at 21:00; Stop 10/25/16 at 11:05; Status DC Sodium Chloride 1,000 ml @ 1,000 mls/hr Q1H PRN IV hypotension; Start 10/24/16 at 07:23; Stop 10/24/16 at 13:22; Status DC Sodium Chloride 1,000 ml @ 400 mls/hr Q2H30M PRN IV PATENCY; Start 10/24/16 at 07:23; Stop 10/24/16 at 19:22; Status DC Info (PHARMACY MONITORING -- do not chart) 1 each PRN DAILY PRN MC SEE COMMENTS ; Start 10/24/16 at 07:30; Status Cancel Warfarin Sodium (Coumadin Per Pharmacy) 1 each PRN DAILY PRN MC SEE COMMENTS Last administered on 10/25/16 15:40; Start 10/24/16 at 12:00 Warfarin Sodium (Coumadin) 3 mg 1X WARF ONCE PO Last administered on 17:22; Start 10/24/16 at 16:00; Stop 10/24/16 at 16:01; Status DC Magnesium Sulfate/ Dextrose 50 ml @ 25 mls/hr PRN DAILY PRN IV for Mag < 1.7 on am labs; Start 10/25/16 at 08:00 Alprazolam (Xanax) 1 mg QID PO Last administered on 10/26/16 08:05; Start at 13:00 Warfarin Sodium (Coumadin) 3 mg 1X WARF ONCE PO Last administered on 16:55; Start 10/25/16 at 16:00; Stop 10/25/16 at 16:01; Status DC Active Scripts Active Senna-Time S Tablet (Sennosides/Docusate Sodium) 1 Each Tablet 2 Tab PO PRN DAILY PRN Novolog Flexpen (Insulin Aspart) 300 Units/3 Ml Insuln.pen 0 Units SQ TIDWMEALS Reported Sapphire-Sara Tablet (Folic Acid/Vitamin B Comp W-C) 0.8 Mg Tablet 0.8 Mg PO Alprazolam 1 Mg Tablet 1 Tab PO TID Hydrocodone-Apap 5-325 (Hydrocodone Bit/Acetaminophen) 1 Each Tablet 1 Tab PO PRN Q8HRS PRN Warfarin Sodium 2 Mg Tablet 1 Tab PO DAILY Actos (Pioglitazone Hcl) 45 Mg Tablet 1 Tab PO DAILY Reglan (Metoclopramide Hcl) 10 Mg Tablet 10 Mg PO QIDACHS Lomotil Tablet (Diphenoxylate Hcl/Atropine) 1 Each Tablet 1 Tab PO QID PRN Sulfamethoxazole-Tmp Ds Tablet (Sulfamethoxazole/Trimethoprim) 1 Each Tablet 1 Tab PO BID Ramipril 10 Mg Capsule 5 Mg PO DAILY Tums (Calcium Carbonate) 300 Mg Tab.chew 300 Mg PO TIDAC Warfarin Sodium 4 Mg Tablet 5 Mg PO DAILY Escitalopram Oxalate 10 Mg Tablet 40 Tab PO DAILY Atorvastatin Calcium 20 Mg Tablet 40 Mg PO DAILY Vitals/I & O Vital Sign - Last 24 Hours 10/25/16 10/25/16 10/25/16 10/25/16 10:52 19:47 19:54 20:00 Temp 98.2 98.2 98.2 98.2 Pulse 59 63 Resp 20 18 B/P (MAP) 98/53 (68) 105/69 (81) Pulse Ox 92 96 O2 Delivery Room Air Room Air Room Air Nasal Cannula O2 Flow Rate 3.0 10/25/16 10/26/16 10/26/16 10/26/16 23:00 03:48 07:00 07:49 Temp 97.7 97.6 97.5 97.7 97.6 97.5 Pulse 57 58 61 Resp 18 18 18 B/P (MAP) 103/54 (70) 102/29 (53) 106/49 (68) Pulse Ox 99 99 99 O2 Delivery Nasal Cannula Nasal Cannula Room Air Room Air O2 Flow Rate 3.0 3.0 Intake and Output 10/25/16 10/25/16 10/26/16 14:59 22:59 06:59 Intake Total 840 ml 2520 ml 0 ml Balance 840 ml 2520 ml 0 ml Assessment UGI bleed, ceased. NSAID lesion suspect, though not seen. Plan of Care: Continue current Tx, Mgmt Plan of Care Note PPI rec's as per yesterday. OK with me to dismiss at your discretion. GURWINDER ESTEVEZ MD October 26, 2016 08:52
[2016-10-26] MEDS: MUPIROCIN 2 % NASAL OINTMENT 22GM TUBE. NS SCH ×2 (09:00→20:14)
[2016-10-26] MEDS: NYSTATIN TOPICAL POWDER 15GM BOTTLE. TP SCH ×2 (09:00→20:14)
--- NOTE | 2016-10-26 10:06 | PDOC ---
SUBJECTIVE ROS ESRD doing OK overall CVS: no Orthopnea, no CP RESP: no SOB, no SHAH GI: no Nausea, no Vomiting : no Dysuria, no Urgency OBJECTIVE Vital Signs Vital Signs Date Time Temp Pulse Resp B/P (MAP) Pulse Ox O2 Delivery O2 Flow Rate FiO2 10/26/16 07:49 Room Air 10/26/16 07:00 97.5 61 18 106/49 (68) 99 97.5 10/26/16 03:48 3.0 I & 0 Intake and Output 10/26/16 07:00 Intake Total 3360 ml Balance 3360 ml Intake Oral 3360 ml # Voids 2 # Bowel Movements 3 PHYSICAL EXAM Physical Exam GEN: Awake, Oriented x 3, In no distress EYES: Vision Unchanged, Conjunctiva Normal EN: No EN Drainage, Mucous Membranes moist NECK: no JVD, min JVP, Supple, no Thyromegaly CVS: S1S2, + Murmur, No Gallop, No Rub,tr Edema RESP: no Rales, no Rhonchi,no Acc. Muscle Use GI: BS + ve, NO Bruit, Non Tender, Non Distended : no CVA tenderness, no Suprapubic Tenderness DIAGNOSIS/ASSESSMENT Assessment & Plan ESRD: Current E-lyte status does not necessitate emergent need for dialysis. Will re-evaluate for dialysis in the am and continue on TTSat schedule. Will SCUF today for 3L as vernell Fl Overload: clinically much better; SCUF 3L today as vernell ANEMIA in CKD ; (was felt to be due to GI Bleed) somewhat better after hemoconcentration; Aranesp as ordered, Transfuse with next HD as needed HyperPhosphatemia/ KAYLAH - see O for change to binder regimen Marginal BP: restrict aggressive Uf as OP Discussed Plan of Care with family at bedside; OK to D/c from renal standpoint COMMENT/RELEVANT DATA Meds Current Medications Medications (Trade) Dose Ordered Sig/Nanette Start Time Stop Time Status Last Admin Dose Admin Acetaminophen (Tylenol) 650 mg PRN Q4HRS PRN 10/22/16 09:45 10/23/16 09:44 DC Albumin Human 200 ml @ 200 mls/hr 1X PRN PRN 10/22/16 15:15 10/22/16 21:14 DC Alprazolam (Xanax) 1 mg QID 10/25/16 13:00 10/26/16 08:05 1 MG Darbepoetin Noel (Aranesp) 60 mcg 1X ONCE 10/22/16 13:00 10/22/16 13:01 DC 10/22/16 15:48 60 MCG Dextrose (Dextrose 50%-Water Syringe) 12.5 gm PRN Q15MIN PRN 10/22/16 11:45 Etomidate (Amidate) 20 mg STK-MED ONCE 10/23/16 15:03 10/23/16 15:04 DC Fentanyl Citrate (Fentanyl 2ml Vial) 25 mcg PRN Q2HR PRN 10/22/16 21:15 10/25/16 18:43 25 MCG Furosemide (Lasix) 40 mg 1X PRN PRN 10/22/16 07:45 10/23/16 07:44 DC Info (Do NOT chart on this entry -- for MONITORING) 1 each PRN DAILY PRN 10/22/16 07:00 10/24/16 06:59 DC Info (PHARMACY MONITORING -- do not chart) 1 each PRN DAILY PRN 10/24/16 07:30 Cancel Insulin Aspart (NovoLOG) 0-7 UNITS TIDWMEALS 10/22/16 12:00 10/26/16 08:09 4 UNITS Iohexol (Omnipaque 300 Mg/ml) 75 ml 1X ONCE 10/22/16 07:00 10/22/16 07:01 DC Iohexol (Omnipaque 350 Mg/ml) 90 ml 1X ONCE 10/22/16 07:00 10/22/16 07:01 DC 10/22/16 07:34 90 ML Magnesium Sulfate/ Dextrose 50 ml @ 25 mls/hr PRN DAILY PRN 10/25/16 08:00 Metoclopramide HCl (Reglan) 10 mg 1X ONCE 10/22/16 07:00 10/22/16 07:01 DC 10/22/16 06:51 10 MG Mupirocin (Bactroban) 1 leana BID 10/23/16 09:00 10/25/16 20:54 1 LEANA Norepinephrine Bitartrate 250 ml @ 0 mls/hr CONT PRN 10/22/16 11:15 10/22/16 11:11 18.75 MLS/HR Nystatin (Nystop) 1 leana BID 10/22/16 22:00 10/25/16 20:54 1 LEANA Octreotide Acetate 500 mcg/ Sodium Chloride 101 ml @ 0 mls/hr CONT PRN 10/22/16 07:00 10/25/16 11:05 DC 10/22/16 06:55 10 MLS/HR Octreotide Acetate (SandoSTATIN) 100 mcg 1X ONCE 10/22/16 07:00 10/22/16 07:01 DC 10/22/16 06:52 100 MCG Ondansetron HCl (Zofran) 4 mg PRN Q6HRS PRN 10/23/16 07:30 10/23/16 13:12 4 MG Pantoprazole Sodium (Protonix Vial) 80 mg 1X ONCE 10/22/16 07:00 10/22/16 07:01 DC 10/22/16 06:52 80 MG Pantoprazole Sodium (Protonix) 40 mg BIDAC 10/23/16 16:30 10/26/16 07:42 40 MG Pantoprazole Sodium 80 mg/ Sodium Chloride 100 ml @ 10 mls/hr Q10H 10/22/16 07:00 10/23/16 15:46 DC 10/23/16 01:30 10 MLS/HR Phytonadione (Mephyton) 10 mg 1X ONCE 10/22/16 09:15 10/22/16 09:16 DC 10/22/16 09:18 10 MG Piperacillin Sod/ Tazobactam Sod (Zosyn Per Pharmacy) 1 each PRN DAILY PRN 10/22/16 11:30 Piperacillin Sod/ Tazobactam Sod 2.25 gm/Sodium Chloride 50 ml @ 100 mls/hr Q8HRS 10/22/16 12:00 10/25/16 13:00 DC 10/25/16 05:52 100 MLS/HR Propofol 20 ml @ As Directed STK-MED ONCE 10/23/16 15:03 10/23/16 15:04 DC Sodium Chloride 1,000 ml @ 400 mls/hr Q2H30M PRN 10/24/16 07:23 10/24/16 19:22 DC Vancomycin HCl 2 gm/Sodium Chloride 500 ml @ 250 mls/hr 1X ONCE 10/22/16 11:30 10/22/16 13:29 DC 10/22/16 18:28 250 MLS/HR Warfarin Sodium (Coumadin Per Pharmacy) 1 each PRN DAILY PRN 10/24/16 12:00 10/25/16 15:40 1 EACH Warfarin Sodium (Coumadin) 3 mg 1X WARF ONCE 10/25/16 16:00 10/25/16 16:01 DC 10/25/16 16:55 3 MG Lab Laboratory Tests Test 10/25/16 11:34 10/25/16 17:20 10/25/16 20:11 10/26/16 02:55 Glucose (Fingerstick) 237 mg/dL (70-99) 224 mg/dL (70-99) 188 mg/dL (70-99) White Blood Count 8.0 x10^3/uL (4.0-11.0) Red Blood Count 2.65 x10^6/uL (4.30-5.70) Hemoglobin 8.0 g/dL (13.0-17.5) Hematocrit 24.4 % (39.0-53.0) Mean Corpuscular Volume 92 fL (79-100) Mean Corpuscular Hemoglobin 30 pg (25-35) Mean Corpuscular Hemoglobin Concent 33 g/dL (31-37) Red Cell Distribution Width 17.0 % (11.5-14.5) Platelet Count 296 x10^3/uL (140-400) Neutrophils (%) (Auto) 71 % (31-73) Lymphocytes (%) (Auto) 12 % (24-48) Monocytes (%) (Auto) 9 % (0-9) Eosinophils (%) (Auto) 6 % (0-3) Basophils (%) (Auto) 1 % (0-3) Neutrophils # (Auto) 5.7 x10^3uL (1.8-7.7) Lymphocytes # (Auto) 1.0 x10^3/uL (1.0-4.8) Monocytes # (Auto) 0.7 x10^3/uL (0.0-1.1) Eosinophils # (Auto) 0.5 x10^3/uL (0.0-0.7) Basophils # (Auto) 0.1 x10^3/uL (0.0-0.2) Prothrombin Time 25.2 SEC (11.7-14.0) Prothromb Time International Ratio 2.5 (0.8-1.1) Sodium Level 134 mmol/L (136-145) Potassium Level 3.9 mmol/L (3.5-5.1) Chloride Level 95 mmol/L (98-107) Carbon Dioxide Level 27 mmol/L (21-32) Anion Gap 12 (6-14) Blood Urea Nitrogen 42 mg/dL (8-26) Creatinine 5.4 mg/dL (0.7-1.3) Estimated GFR (Cockcroft-Gault) 10.9 Glucose Level 212 mg/dL (70-99) Calcium Level 8.1 mg/dL (8.5-10.1) Phosphorus Level 5.2 mg/dL (2.6-4.7) Magnesium Level 1.9 mg/dL (1.8-2.4) Albumin 2.7 g/dL (3.4-5.0) YUMIKO SCHAFER MD October 26, 2016 10:06
[2016-10-26] MEDS ORDERED: DARBEPOETIN ALFA 100 MCG/0.5 ML DISP.SYRIN. SQ SCH ×2 (10:12→21:00)
--- NOTE | 2016-10-26 10:27 | PDOC ---
PROGRESS NOTES Subjective Subjective Pt has no cardiac complaints Objective Objective Vital Signs Date Time Temp Pulse Resp B/P (MAP) Pulse Ox O2 Delivery O2 Flow Rate FiO2 10/26/16 07:49 Room Air 10/26/16 07:00 97.5 61 18 106/49 (68) 99 97.5 10/26/16 03:48 3.0 Intake and Output 10/26/16 07:00 Intake Total 3360 ml Balance 3360 ml Intake Oral 3360 ml # Voids 2 # Bowel Movements 3 Physical Exam Physical Exam No significant changes in cardiac exam Assessment Assessment Stable May go home Comment Review of Relevant I have reviewed the following items maria teresa (where applicable) has been applied. Labs Laboratory Tests Test 10/24/16 11:29 10/24/16 17:16 10/24/16 20:51 10/25/16 05:15 Glucose (Fingerstick) 107 mg/dL (70-99) 207 mg/dL (70-99) 176 mg/dL (70-99) White Blood Count 12.7 x10^3/uL (4.0-11.0) Red Blood Count 2.76 x10^6/uL (4.30-5.70) Hemoglobin 8.3 g/dL (13.0-17.5) Hematocrit 24.5 % (39.0-53.0) Mean Corpuscular Volume 89 fL (79-100) Mean Corpuscular Hemoglobin 30 pg (25-35) Mean Corpuscular Hemoglobin Concent 34 g/dL (31-37) Red Cell Distribution Width 17.0 % (11.5-14.5) Platelet Count 299 x10^3/uL (140-400) Neutrophils (%) (Auto) 84 % (31-73) Lymphocytes (%) (Auto) 7 % (24-48) Monocytes (%) (Auto) 7 % (0-9) Eosinophils (%) (Auto) 2 % (0-3) Basophils (%) (Auto) 0 % (0-3) Neutrophils # (Auto) 10.7 x10^3uL (1.8-7.7) Lymphocytes # (Auto) 0.9 x10^3/uL (1.0-4.8) Monocytes # (Auto) 0.9 x10^3/uL (0.0-1.1) Eosinophils # (Auto) 0.2 x10^3/uL (0.0-0.7) Basophils # (Auto) 0.0 x10^3/uL (0.0-0.2) Prothrombin Time 23.0 SEC (11.7-14.0) Prothromb Time International Ratio 2.2 (0.8-1.1) Test 10/25/16 07:24 10/25/16 11:34 10/25/16 17:20 10/25/16 20:11 Glucose (Fingerstick) 179 mg/dL (70-99) 237 mg/dL (70-99) 224 mg/dL (70-99) 188 mg/dL (70-99) Test 10/26/16 02:55 White Blood Count 8.0 x10^3/uL (4.0-11.0) Red Blood Count 2.65 x10^6/uL (4.30-5.70) Hemoglobin 8.0 g/dL (13.0-17.5) Hematocrit 24.4 % (39.0-53.0) Mean Corpuscular Volume 92 fL (79-100) Mean Corpuscular Hemoglobin 30 pg (25-35) Mean Corpuscular Hemoglobin Concent 33 g/dL (31-37) Red Cell Distribution Width 17.0 % (11.5-14.5) Platelet Count 296 x10^3/uL (140-400) Neutrophils (%) (Auto) 71 % (31-73) Lymphocytes (%) (Auto) 12 % (24-48) Monocytes (%) (Auto) 9 % (0-9) Eosinophils (%) (Auto) 6 % (0-3) Basophils (%) (Auto) 1 % (0-3) Neutrophils # (Auto) 5.7 x10^3uL (1.8-7.7) Lymphocytes # (Auto) 1.0 x10^3/uL (1.0-4.8) Monocytes # (Auto) 0.7 x10^3/uL (0.0-1.1) Eosinophils # (Auto) 0.5 x10^3/uL (0.0-0.7) Basophils # (Auto) 0.1 x10^3/uL (0.0-0.2) Prothrombin Time 25.2 SEC (11.7-14.0) Prothromb Time International Ratio 2.5 (0.8-1.1) Sodium Level 134 mmol/L (136-145) Potassium Level 3.9 mmol/L (3.5-5.1) Chloride Level 95 mmol/L (98-107) Carbon Dioxide Level 27 mmol/L (21-32) Anion Gap 12 (6-14) Blood Urea Nitrogen 42 mg/dL (8-26) Creatinine 5.4 mg/dL (0.7-1.3) Estimated GFR (Cockcroft-Gault) 10.9 Glucose Level 212 mg/dL (70-99) Calcium Level 8.1 mg/dL (8.5-10.1) Phosphorus Level 5.2 mg/dL (2.6-4.7) Magnesium Level 1.9 mg/dL (1.8-2.4) Albumin 2.7 g/dL (3.4-5.0) Laboratory Tests Test 10/25/16 11:34 10/25/16 17:20 10/25/16 20:11 10/26/16 02:55 Glucose (Fingerstick) 237 mg/dL (70-99) 224 mg/dL (70-99) 188 mg/dL (70-99) White Blood Count 8.0 x10^3/uL (4.0-11.0) Red Blood Count 2.65 x10^6/uL (4.30-5.70) Hemoglobin 8.0 g/dL (13.0-17.5) Hematocrit 24.4 % (39.0-53.0) Mean Corpuscular Volume 92 fL (79-100) Mean Corpuscular Hemoglobin 30 pg (25-35) Mean Corpuscular Hemoglobin Concent 33 g/dL (31-37) Red Cell Distribution Width 17.0 % (11.5-14.5) Platelet Count 296 x10^3/uL (140-400) Neutrophils (%) (Auto) 71 % (31-73) Lymphocytes (%) (Auto) 12 % (24-48) Monocytes (%) (Auto) 9 % (0-9) Eosinophils (%) (Auto) 6 % (0-3) Basophils (%) (Auto) 1 % (0-3) Neutrophils # (Auto) 5.7 x10^3uL (1.8-7.7) Lymphocytes # (Auto) 1.0 x10^3/uL (1.0-4.8) Monocytes # (Auto) 0.7 x10^3/uL (0.0-1.1) Eosinophils # (Auto) 0.5 x10^3/uL (0.0-0.7) Basophils # (Auto) 0.1 x10^3/uL (0.0-0.2) Prothrombin Time 25.2 SEC (11.7-14.0) Prothromb Time International Ratio 2.5 (0.8-1.1) Sodium Level 134 mmol/L (136-145) Potassium Level 3.9 mmol/L (3.5-5.1) Chloride Level 95 mmol/L (98-107) Carbon Dioxide Level 27 mmol/L (21-32) Anion Gap 12 (6-14) Blood Urea Nitrogen 42 mg/dL (8-26) Creatinine 5.4 mg/dL (0.7-1.3) Estimated GFR (Cockcroft-Gault) 10.9 Glucose Level 212 mg/dL (70-99) Calcium Level 8.1 mg/dL (8.5-10.1) Phosphorus Level 5.2 mg/dL (2.6-4.7) Magnesium Level 1.9 mg/dL (1.8-2.4) Albumin 2.7 g/dL (3.4-5.0) Microbiology 10/22/16 Blood Culture - Preliminary, Resulted NO GROWTH AFTER 3 DAYS Medications Current Medications Fentanyl Citrate (Fentanyl 2ml Vial) 25 mcg PRN Q15MIN PRN IV PAIN GREATER THAN 3/10; Start 10/22/16 at 06:30; Stop 10/23/16 at 06:29; Status DC Pantoprazole Sodium 80 mg/ Sodium Chloride 100 ml @ 10 mls/hr Q10H IV Last administered on 10/23/16 01:30; Start 10/22/16 at 07:00; Stop 10/23/16 at 15:46 ; Status DC Pantoprazole Sodium (Protonix Vial) 80 mg 1X ONCE IVP Last administered on 06:52; Start 10/22/16 at 07:00; Stop 10/22/16 at 07:01; Status DC Octreotide Acetate 500 mcg/ Sodium Chloride 101 ml @ 0 mls/hr CONT PRN IV SEE I /O RECORD Last administered on 10/22/16 06:55; Start 10/22/16 at 07:00; Stop at 11:05; Status DC Octreotide Acetate (SandoSTATIN) 100 mcg 1X ONCE IV Last administered on 06:52; Start 10/22/16 at 07:00; Stop 10/22/16 at 07:01; Status DC Metoclopramide HCl (Reglan) 10 mg 1X ONCE IV Last administered on 10/22/16 06 :51; Start 10/22/16 at 07:00; Stop 10/22/16 at 07:01; Status DC Ondansetron HCl (Zofran) 4 mg 1X ONCE IV Last administered on 10/22/16 06:51 ; Start 10/22/16 at 07:00; Stop 10/22/16 at 07:01; Status DC Iohexol (Omnipaque 300 Mg/ml) 75 ml 1X ONCE IV ; Start 10/22/16 at 07:00; Stop 10/22/16 at 07:01; Status DC Info (Do NOT chart on this entry -- for MONITORING) 1 each PRN DAILY PRN MC SEE COMMENTS; Start 10/22/16 at 06:45; Stop 10/23/16 at 07:26; Status DC Iohexol (Omnipaque 350 Mg/ml) 90 ml 1X ONCE IV Last administered on 10/22/16 07:34; Start 10/22/16 at 07:00; Stop 10/22/16 at 07:01; Status DC Info (Do NOT chart on this entry -- for MONITORING) 1 each PRN DAILY PRN MC SEE COMMENTS; Start 10/22/16 at 07:00; Stop 10/24/16 at 06:59; Status DC Furosemide (Lasix) 40 mg 1X PRN PRN IV blood transfusion; Start 10/22/16 at 07: 45; Stop 10/23/16 at 07:44; Status DC Phytonadione (Mephyton) 10 mg 1X ONCE PO Last administered on 10/22/16 09:18 ; Start 10/22/16 at 09:15; Stop 10/22/16 at 09:16; Status DC Fentanyl Citrate (Fentanyl 2ml Vial) 50 mcg PRN Q2HR PRN IV PAIN Last administered on 10/22/16 20:52; Start 10/22/16 at 09:45; Stop 10/23/16 at 09:44 ; Status DC Acetaminophen (Tylenol) 650 mg PRN Q4HRS PRN PO FEVER; Start 10/22/16 at 09:45 ; Stop 10/23/16 at 09:44; Status DC Insulin Aspart (NovoLOG) 0-5 UNITS TIDWMEALS SQ ; Start 10/22/16 at 12:00; Stop 10/24/16 at 10:42; Status DC Dextrose (Dextrose 50%-Water Syringe) 12.5 gm PRN Q15MIN PRN IV SEE COMMENTS; Start 10/22/16 at 09:45; Stop 10/22/16 at 12:42; Status DC Norepinephrine Bitartrate 250 ml @ As Directed STK-MED ONCE IV ; Start at 11:03; Stop 10/22/16 at 11:04; Status DC Norepinephrine Bitartrate 250 ml @ 0 mls/hr CONT PRN IV SEE I/O RECORD Last administered on 10/22/16 11:11; Start 10/22/16 at 11:15 Vancomycin HCl 2 gm/Sodium Chloride 500 ml @ 250 mls/hr 1X ONCE IV Last administered on 10/22/16 18:28; Start 10/22/16 at 11:30; Stop 10/22/16 at 13:29 ; Status DC Piperacillin Sod/ Tazobactam Sod 2.25 gm/Sodium Chloride 50 ml @ 100 mls/hr Q8HRS IV Last administered on 10/25/16 05:52; Start 10/22/16 at 12:00; Stop at 13:00; Status DC Piperacillin Sod/ Tazobactam Sod (Zosyn Per Pharmacy) 1 each PRN DAILY PRN MC SEE COMMENTS; Start 10/22/16 at 11:30 Insulin Aspart (NovoLOG) 0-7 UNITS TIDWMEALS SQ Last administered on 10/26/16 08:09; Start 10/22/16 at 12:00 Dextrose (Dextrose 50%-Water Syringe) 12.5 gm PRN Q15MIN PRN IV SEE COMMENTS; Start 10/22/16 at 11:45 Darbepoetin Noel (Aranesp) 60 mcg 1X ONCE SQ Last administered on 10/22/16 15 :48; Start 10/22/16 at 13:00; Stop 10/22/16 at 13:01; Status DC Sodium Chloride 1,000 ml @ 1,000 mls/hr Q1H PRN IV hypotension; Start 10/22/16 at 15:04; Stop 10/22/16 at 21:03; Status DC Albumin Human 200 ml @ 200 mls/hr 1X PRN PRN IV Hypotension; Start 10/22/16 at 15:15; Stop 10/22/16 at 21:14; Status DC Sodium Chloride 1,000 ml @ 400 mls/hr Q2H30M PRN IV PATENCY; Start 10/22/16 at 15:04; Stop 10/23/16 at 03:03; Status DC Info (PHARMACY MONITORING -- do not chart) 1 each PRN DAILY PRN MC SEE COMMENTS ; Start 10/22/16 at 15:15; Status UNV Info (PHARMACY MONITORING -- do not chart) 1 each PRN DAILY PRN MC SEE COMMENTS ; Start 10/22/16 at 15:15 Sodium Chloride 1,000 ml @ 30 mls/hr Q24H IV Last administered on 10/24/16 20 :38; Start 10/23/16 at 11:30; Stop 10/25/16 at 11:05; Status DC Nystatin (Nystop) 1 leana BID TP Last administered on 10/25/16 20:54; Start at 22:00 Fentanyl Citrate (Fentanyl 2ml Vial) 25 mcg PRN Q2HR PRN IV SEVERE PAIN Last administered on 10/25/16 18:43; Start 10/22/16 at 21:15 Mupirocin (Bactroban) 1 leana BID NS Last administered on 10/25/16 20:54; Start 10/23/16 at 09:00 Ondansetron HCl (Zofran) 4 mg PRN Q6HRS PRN IV NAUSEA/VOMITING Last administered on 10/23/16 13:12; Start 10/23/16 at 07:30 Etomidate (Amidate) 20 mg STK-MED ONCE IV ; Start 10/23/16 at 15:03; Stop at 15:04; Status DC Propofol 20 ml @ As Directed STK-MED ONCE IV ; Start 10/23/16 at 15:03; Stop at 15:04; Status DC Pantoprazole Sodium (Protonix) 40 mg BIDAC PO Last administered on 10/26/16 07 :42; Start 10/23/16 at 16:30 Alprazolam (Xanax) 1 mg TID PO Last administered on 10/25/16 08:36; Start at 21:00; Stop 10/25/16 at 11:05; Status DC Sodium Chloride 1,000 ml @ 1,000 mls/hr Q1H PRN IV hypotension; Start 10/24/16 at 07:23; Stop 10/24/16 at 13:22; Status DC Sodium Chloride 1,000 ml @ 400 mls/hr Q2H30M PRN IV PATENCY; Start 10/24/16 at 07:23; Stop 10/24/16 at 19:22; Status DC Info (PHARMACY MONITORING -- do not chart) 1 each PRN DAILY PRN MC SEE COMMENTS ; Start 10/24/16 at 07:30; Status Cancel Warfarin Sodium (Coumadin Per Pharmacy) 1 each PRN DAILY PRN MC SEE COMMENTS Last administered on 10/25/16 15:40; Start 10/24/16 at 12:00 Warfarin Sodium (Coumadin) 3 mg 1X WARF ONCE PO Last administered on 17:22; Start 10/24/16 at 16:00; Stop 10/24/16 at 16:01; Status DC Magnesium Sulfate/ Dextrose 50 ml @ 25 mls/hr PRN DAILY PRN IV for Mag < 1.7 on am labs; Start 10/25/16 at 08:00 Alprazolam (Xanax) 1 mg QID PO Last administered on 10/26/16 08:05; Start at 13:00 Warfarin Sodium (Coumadin) 3 mg 1X WARF ONCE PO Last administered on 16:55; Start 10/25/16 at 16:00; Stop 10/25/16 at 16:01; Status DC Darbepoetin Noel (Aranesp) 60 mcg Mo SQ ; Start 10/26/16 at 21:00 Calcium Acetate (Phoslo) 1,334 mg TIDWMEALS PO ; Start 10/26/16 at 12:00 Darbepoetin Noel (Aranesp) 100 mcg Mo SQ ; Start 10/26/16 at 10:12 Active Scripts Active Senna-Time S Tablet (Sennosides/Docusate Sodium) 1 Each Tablet 2 Tab PO PRN DAILY PRN Novolog Flexpen (Insulin Aspart) 300 Units/3 Ml Insuln.pen 0 Units SQ TIDWMEALS Reported Sapphire-Sara Tablet (Folic Acid/Vitamin B Comp W-C) 0.8 Mg Tablet 0.8 Mg PO Alprazolam 1 Mg Tablet 1 Tab PO TID Hydrocodone-Apap 5-325 (Hydrocodone Bit/Acetaminophen) 1 Each Tablet 1 Tab PO PRN Q8HRS PRN Warfarin Sodium 2 Mg Tablet 1 Tab PO DAILY Actos (Pioglitazone Hcl) 45 Mg Tablet 1 Tab PO DAILY Reglan (Metoclopramide Hcl) 10 Mg Tablet 10 Mg PO QIDACHS Lomotil Tablet (Diphenoxylate Hcl/Atropine) 1 Each Tablet 1 Tab PO QID PRN Sulfamethoxazole-Tmp Ds Tablet (Sulfamethoxazole/Trimethoprim) 1 Each Tablet 1 Tab PO BID Ramipril 10 Mg Capsule 5 Mg PO DAILY Tums (Calcium Carbonate) 300 Mg Tab.chew 300 Mg PO TIDAC Warfarin Sodium 4 Mg Tablet 5 Mg PO DAILY Escitalopram Oxalate 10 Mg Tablet 40 Tab PO DAILY Atorvastatin Calcium 20 Mg Tablet 40 Mg PO DAILY Vitals/I & O Vital Sign - Last 24 Hours 10/25/16 10/25/16 10/25/16 10/25/16 10:52 19:47 19:54 20:00 Temp 98.2 98.2 98.2 98.2 Pulse 59 63 Resp 20 18 B/P (MAP) 98/53 (68) 105/69 (81) Pulse Ox 92 96 O2 Delivery Room Air Room Air Room Air Nasal Cannula O2 Flow Rate 3.0 10/25/16 10/26/16 10/26/16 10/26/16 23:00 03:48 07:00 07:49 Temp 97.7 97.6 97.5 97.7 97.6 97.5 Pulse 57 58 61 Resp 18 18 18 B/P (MAP) 103/54 (70) 102/29 (53) 106/49 (68) Pulse Ox 99 99 99 O2 Delivery Nasal Cannula Nasal Cannula Room Air Room Air O2 Flow Rate 3.0 3.0 Intake and Output 10/25/16 10/25/16 10/26/16 15:00 23:00 07:00 Intake Total 840 ml 2520 ml 0 ml Balance 840 ml 2520 ml 0 ml JARON RAMOS MD October 26, 2016 10:27
--- NOTE | 2016-10-26 10:32 | PDOC ---
PROGRESS NOTES Subjective Subjective feels better today Objective Objective Vital Signs Date Time Temp Pulse Resp B/P (MAP) Pulse Ox O2 Delivery O2 Flow Rate FiO2 10/26/16 07:49 Room Air 10/26/16 07:00 97.5 61 18 106/49 (68) 99 97.5 10/26/16 03:48 3.0 Intake and Output 10/26/16 07:00 Intake Total 3360 ml Balance 3360 ml Intake Oral 3360 ml # Voids 2 # Bowel Movements 3 Physical Exam Abdomen: Normal bowel sounds, Soft Heart: Other (irregularly irregular, S1-S2) Extremities: Other (status post amputation) General: Alert, Oriented X3, Cooperative HEENT: Atraumatic, PERRLA Lungs: Clear to auscultation MUSCULOSKELETAL: Other (LE AMP) Neuro: Normal speech Psych/Mental Status: Other (ANXIOUS AFFECT) Skin: No rashes, No breakdown, No significant lesion COMMENT Rt BKA Assessment Assessment FINAL IMPRESSION: 1. Acute gastrointestinal bleed, possible upper gastrointestinal source. 2. Leukocytosis with elevated temperature, possible aspiration pneumonia. 3. End-stage renal disease, on hemodialysis. 4. Chronic atrial fibrillation, on Coumadin. 5. Anemia secondary to acute gastrointestinal blood loss. 6. Diabetes, insulin-dependent. 7. Chronic systolic heart failure, stable. 8. Right [id number] amputation. 9. Stage 2 ulcer, left foot. 10 .sarika troponin ,?demand ischemia PLAN: home tomorrow after dialysis transferred out of icu 10/24 transfused prn, Hb 8.4 EGD no active bleeding lesions identified resumed [email or web address] 2.5 today iv antibiotics for aspiration, wbc 8 trending down Dialysis wednesday. cxr improved. home tomorrow Problems: Comment Review of Relevant I have reviewed the following items maria teresa (where applicable) has been applied. Labs Laboratory Tests Test 10/25/16 11:34 10/25/16 17:20 10/25/16 20:11 10/26/16 02:55 Glucose (Fingerstick) 237 mg/dL (70-99) 224 mg/dL (70-99) 188 mg/dL (70-99) White Blood Count 8.0 x10^3/uL (4.0-11.0) Red Blood Count 2.65 x10^6/uL (4.30-5.70) Hemoglobin 8.0 g/dL (13.0-17.5) Hematocrit 24.4 % (39.0-53.0) Mean Corpuscular Volume 92 fL (79-100) Mean Corpuscular Hemoglobin 30 pg (25-35) Mean Corpuscular Hemoglobin Concent 33 g/dL (31-37) Red Cell Distribution Width 17.0 % (11.5-14.5) Platelet Count 296 x10^3/uL (140-400) Neutrophils (%) (Auto) 71 % (31-73) Lymphocytes (%) (Auto) 12 % (24-48) Monocytes (%) (Auto) 9 % (0-9) Eosinophils (%) (Auto) 6 % (0-3) Basophils (%) (Auto) 1 % (0-3) Neutrophils # (Auto) 5.7 x10^3uL (1.8-7.7) Lymphocytes # (Auto) 1.0 x10^3/uL (1.0-4.8) Monocytes # (Auto) 0.7 x10^3/uL (0.0-1.1) Eosinophils # (Auto) 0.5 x10^3/uL (0.0-0.7) Basophils # (Auto) 0.1 x10^3/uL (0.0-0.2) Prothrombin Time 25.2 SEC (11.7-14.0) Prothromb Time International Ratio 2.5 (0.8-1.1) Sodium Level 134 mmol/L (136-145) Potassium Level 3.9 mmol/L (3.5-5.1) Chloride Level 95 mmol/L (98-107) Carbon Dioxide Level 27 mmol/L (21-32) Anion Gap 12 (6-14) Blood Urea Nitrogen 42 mg/dL (8-26) Creatinine 5.4 mg/dL (0.7-1.3) Estimated GFR (Cockcroft-Gault) 10.9 Glucose Level 212 mg/dL (70-99) Calcium Level 8.1 mg/dL (8.5-10.1) Phosphorus Level 5.2 mg/dL (2.6-4.7) Magnesium Level 1.9 mg/dL (1.8-2.4) Albumin 2.7 g/dL (3.4-5.0) Microbiology 10/22/16 Blood Culture - Preliminary, Resulted NO GROWTH AFTER 3 DAYS Medications Current Medications Alprazolam (Xanax) 1 mg QID PO Last administered on 10/26/16 08:05; Start at 13:00 Calcium Acetate (Phoslo) 1,334 mg TIDWMEALS PO ; Start 10/26/16 at 12:00 Darbepoetin Noel (Aranesp) 60 mcg Mo SQ ; Start 10/26/16 at 21:00 Darbepoetin Noel (Aranesp) 100 mcg Mo SQ ; Start 10/26/16 at 10:12 Warfarin Sodium (Coumadin) 3 mg 1X WARF ONCE PO Last administered on 16:55; Start 10/25/16 at 16:00; Stop 10/25/16 at 16:01; Status DC Vitals/I & O Vital Sign - Last 24 Hours 10/25/16 10/25/16 10/25/16 10/25/16 10:52 19:47 19:54 20:00 Temp 98.2 98.2 98.2 98.2 Pulse 59 63 Resp 20 18 B/P (MAP) 98/53 (68) 105/69 (81) Pulse Ox 92 96 O2 Delivery Room Air Room Air Room Air Nasal Cannula O2 Flow Rate 3.0 10/25/16 10/26/16 10/26/16 10/26/16 23:00 03:48 07:00 07:49 Temp 97.7 97.6 97.5 97.7 97.6 97.5 Pulse 57 58 61 Resp 18 18 18 B/P (MAP) 103/54 (70) 102/29 (53) 106/49 (68) Pulse Ox 99 99 99 O2 Delivery Nasal Cannula Nasal Cannula Room Air Room Air O2 Flow Rate 3.0 3.0 Intake and Output 10/25/16 10/25/16 10/26/16 15:00 23:00 07:00 Intake Total 840 ml 2520 ml 0 ml Balance 840 ml 2520 ml 0 ml RADHA MEYER MD October 26, 2016 10:31
[2016-10-26 10:51] VITALS: BP 110/52
[2016-10-26] MEDS: CALCIUM ACETATE 667 MG CAPSULE PO SCH ×2 (12:00→17:39)
[2016-10-26] MEDS ORDERED: IV NORMAL SALINE 1000ML BAG 1,000 ML IV PRN ×2 (12:04)
[2016-10-26] MEDS ORDERED: DIALYSIS PATIENT. MC PRN (12:15)
[2016-10-26] MEDS ORDERED: ALBUMIN HUMAN 25% 200 ML IV PRN (12:15)
[2016-10-26 15:00] VITALS: BP 110/52
[2016-10-26] MEDS ORDERED: WARFARIN 2 MG TABLET. PO ONE (16:00)
[2016-10-26 19:55] VITALS: BP_SYST 100
[2016-10-26] MEDS ORDERED: DARBEPOETIN ALFA 60 MCG/0.3 ML DISP.SYRIN. SQ SCH (21:00)
[2016-10-26] MEDS: fentaNYL PF VIAL 100 MCG/2 ML VIAL IV PRN (21:12)
[2016-10-26 23:16] VITALS: BP 110/56
[2016-10-27 03:26] VITALS: BP 102/53
[2016-10-27 06:07] LABS: INR 1.7 (0.8-1.1); PROTHROMBIN TIME PATIENT 19.2 SEC (11.7-14.0)
[2016-10-27 06:13] LABS: ALBUMIN 2.6 g/dL (3.4-5.0); CREATININE 4.8 mg/dL (0.7-1.3); GFR 12.5; MAGNESIUM 1.7 mg/dL (1.8-2.4); PHOSPHORUS 4.9 mg/dL (2.6-4.7); POTASSIUM 3.8 mmol/L (3.5-5.1)
[2016-10-27 07:34] VITALS: BP 108/56
[2016-10-27] MEDS: PANTOPRAZOLE 40 MG TABLET.DR. PO SCH ×2 (07:53→15:57)
[2016-10-27] MEDS: MUPIROCIN 2 % NASAL OINTMENT 22GM TUBE. NS SCH (07:54)
[2016-10-27] MEDS: NYSTATIN TOPICAL POWDER 15GM BOTTLE. TP SCH (07:58)
[2016-10-27] MEDS: INSULIN ASPART 300 UNITS/3 ML INSULN.PEN SQ SCH ×2 (08:03→15:03)
[2016-10-27] MEDS: ALPRAZolam 1 MG TABLET PO SCH ×2 (08:06→14:55)
[2016-10-27] MEDS: CALCIUM ACETATE 667 MG CAPSULE PO SCH ×2 (08:06→14:55)
[2016-10-27] MEDS ORDERED: DIALYSIS PATIENT. MC PRN ×2 (10:30)
[2016-10-27] MEDS ORDERED: IV NORMAL SALINE 1000ML BAG 1,000 ML IV PRN (10:30)
--- NOTE | 2016-10-27 10:43 | PDOC ---
PROGRESS NOTES Subjective Subjective no complaints Objective Objective Vital Signs Date Time Temp Pulse Resp B/P (MAP) Pulse Ox O2 Delivery O2 Flow Rate FiO2 10/27/16 08:00 Room Air 10/27/16 07:34 98.0 62 20 108/56 (73) 96 3.0 98.0 Intake and Output 10/27/16 07:00 Intake Total 2050 ml Balance 2050 ml Intake Oral 700 ml IV Total 1050 ml Blood Product IV Normal Saline Flush 300 ml # Voids 1 # Bowel Movements 3 Physical Exam Abdomen: Normal bowel sounds, Soft Heart: Other (irregularly irregular, S1-S2) Extremities: Other (status post amputation) General: Alert, Oriented X3, Cooperative HEENT: Atraumatic, PERRLA Lungs: Clear to auscultation MUSCULOSKELETAL: Other (LE AMP) Neuro: Normal speech Psych/Mental Status: Other (ANXIOUS AFFECT) Skin: No rashes, No breakdown, No significant lesion COMMENT Rt BKA Assessment Assessment FINAL IMPRESSION: 1. Acute gastrointestinal bleed, possible upper gastrointestinal source. 2. Leukocytosis with elevated temperature, possible aspiration pneumonia. 3. End-stage renal disease, on hemodialysis. 4. Chronic atrial fibrillation, on Coumadin. 5. Anemia secondary to acute gastrointestinal blood loss. 6. Diabetes, insulin-dependent. 7. Chronic systolic heart failure, stable. 8. Right [id number] amputation. 9. Stage 2 ulcer, left foot. 10 .sarika troponin ,?demand ischemia PLAN: home today after dialysis transferred out of icu 10/24 transfused prn, Hb 8.4 EGD no active bleeding lesions identified resumed coumadin.inr 2.5 today off antibiotics for aspiration, wbc 8 trending down Dialysis wednesday. cxr improved. home today Problems: Comment Review of Relevant I have reviewed the following items maria teresa (where applicable) has been applied. Labs Laboratory Tests Test 10/26/16 12:04 10/26/16 17:01 10/26/16 20:45 10/27/16 05:15 Glucose (Fingerstick) 209 mg/dL (70-99) 154 mg/dL (70-99) 230 mg/dL (70-99) Prothrombin Time 19.2 SEC (11.7-14.0) Prothromb Time International Ratio 1.7 (0.8-1.1) Sodium Level 134 mmol/L (136-145) Potassium Level 3.8 mmol/L (3.5-5.1) Chloride Level 97 mmol/L (98-107) Carbon Dioxide Level 28 mmol/L (21-32) Anion Gap 9 (6-14) Blood Urea Nitrogen 33 mg/dL (8-26) Creatinine 4.8 mg/dL (0.7-1.3) Estimated GFR (Cockcroft-Gault) 12.5 Glucose Level 220 mg/dL (70-99) Calcium Level 8.0 mg/dL (8.5-10.1) Phosphorus Level 4.9 mg/dL (2.6-4.7) Magnesium Level 1.7 mg/dL (1.8-2.4) Albumin 2.6 g/dL (3.4-5.0) Test 10/27/16 07:38 Glucose (Fingerstick) 227 mg/dL (70-99) Microbiology 10/22/16 Blood Culture - Preliminary, Resulted NO GROWTH AFTER 4 DAYS Medications Current Medications Albumin Human 200 ml @ 200 mls/hr 1X PRN PRN IV Hypotension; Start 10/26/16 at 12:15; Stop 10/26/16 at 18:14; Status DC Calcium Acetate (Phoslo) 1,334 mg TIDWMEALS PO Last administered on 10/27/16 08:06; Start 10/26/16 at 12:00 Darbepoetin Noel (Aranesp) 60 mcg Mo SQ Last administered on 10/26/16 20:13; Start 10/26/16 at 21:00 Darbepoetin Noel (Aranesp) 100 mcg Mo SQ Last administered on 10/26/16 20:13; Start 10/26/16 at 21:00 Info (PHARMACY MONITORING -- do not chart) 1 each PRN DAILY PRN MC SEE COMMENTS ; Start 10/26/16 at 12:15 Info (PHARMACY MONITORING -- do not chart) 1 each PRN DAILY PRN MC SEE COMMENTS ; Start 10/27/16 at 10:30; Status UNV Info (PHARMACY MONITORING -- do not chart) 1 each PRN DAILY PRN MC SEE COMMENTS ; Start 10/27/16 at 10:30; Status UNV Sodium Chloride 1,000 ml @ 400 mls/hr Q2H30M PRN IV PATENCY; Start 10/26/16 at 12:04; Stop 10/27/16 at 00:03; Status DC Sodium Chloride 1,000 ml @ 1,000 mls/hr Q1H PRN IV hypotension; Start 10/26/16 at 12:04; Stop 10/26/16 at 18:03; Status DC Sodium Chloride 1,000 ml @ 1,000 mls/hr Q1H PRN IV hypotension; Start 10/27/16 at 10:30; Stop 10/27/16 at 16:29 Warfarin Sodium (Coumadin) 2 mg 1X WARF ONCE PO Last administered on t 17:39; Start 10/26/16 at 16:00; Stop 10/26/16 at 16:01; Status DC Vitals/I & O Vital Sign - Last 24 Hours 10/26/16 10/26/16 10/26/16 10/26/16 10:51 15:00 19:48 19:55 Temp 97.6 97.6 98.2 97.6 97.6 98.2 Pulse 60 60 61 Resp 18 16 B/P (MAP) 110/52 (71) 110/52 (71) 100/ Pulse Ox 99 99 95 O2 Delivery Room Air Room Air Room Air Room Air O2 Flow Rate 3.0 10/26/16 10/27/16 10/27/16 10/27/16 23:16 03:26 07:34 08:00 Temp 98.2 98.4 98.0 98.2 98.4 98.0 Pulse 69 61 62 Resp 20 20 20 B/P (MAP) 110/56 (74) 102/53 (69) 108/56 (73) Pulse Ox 97 100 96 O2 Delivery Nasal Cannula Nasal Cannula Nasal Cannula Room Air O2 Flow Rate 3.0 3.0 3.0 Intake and Output 10/26/16 10/26/16 10/27/16 15:00 23:00 07:00 Intake Total 1350 ml 300 ml 400 ml Balance 1350 ml 300 ml 400 ml RADHA MEYER MD October 27, 2016 10:43
--- NOTE | 2016-10-27 10:44 | PDOC ---
Dialysis Progress Note Dialysis Note Dialysis Note Seen on Hemodialysis, tolerating treatment Okay Vitals on Hemodialysis: 108/50 72 afeb General Appearance: Awake: Alert Oriented x 3 Neck: No JVD or JVP Chest: CTA Breezy Heart: S1 S2 Abdomen - Soft NTND Extremities - No Edema ESRD : Dialysis as below F 180 NR 4.0 Hrs 3 K 2.5 Ca 140 Na 35 HC03 Qb 350 + Qd 500+ Heparin 0 Units Uf 3 Kgs or to dry weight as tolerated May give 25-50 gms of 25% Albumin if needed to maintain Hemodynamic stability Treatment plan reviewed and discussed with media services director Vitals Vital Signs Vital Signs Date Time Temp Pulse Resp B/P (MAP) Pulse Ox O2 Delivery O2 Flow Rate FiO2 10/27/16 08:00 Room Air 10/27/16 07:34 98.0 62 20 108/56 (73) 96 3.0 98.0 Labs Last Labs Laboratory Tests Test 10/25/16 11:34 10/25/16 17:20 10/25/16 20:11 10/26/16 02:55 Glucose (Fingerstick) 237 mg/dL (70-99) 224 mg/dL (70-99) 188 mg/dL (70-99) White Blood Count 8.0 x10^3/uL (4.0-11.0) Red Blood Count 2.65 x10^6/uL (4.30-5.70) Hemoglobin 8.0 g/dL (13.0-17.5) Hematocrit 24.4 % (39.0-53.0) Mean Corpuscular Volume 92 fL (79-100) Mean Corpuscular Hemoglobin 30 pg (25-35) Mean Corpuscular Hemoglobin Concent 33 g/dL (31-37) Red Cell Distribution Width 17.0 % (11.5-14.5) Platelet Count 296 x10^3/uL (140-400) Neutrophils (%) (Auto) 71 % (31-73) Lymphocytes (%) (Auto) 12 % (24-48) Monocytes (%) (Auto) 9 % (0-9) Eosinophils (%) (Auto) 6 % (0-3) Basophils (%) (Auto) 1 % (0-3) Neutrophils # (Auto) 5.7 x10^3uL (1.8-7.7) Lymphocytes # (Auto) 1.0 x10^3/uL (1.0-4.8) Monocytes # (Auto) 0.7 x10^3/uL (0.0-1.1) Eosinophils # (Auto) 0.5 x10^3/uL (0.0-0.7) Basophils # (Auto) 0.1 x10^3/uL (0.0-0.2) Prothrombin Time 25.2 SEC (11.7-14.0) Prothromb Time International Ratio 2.5 (0.8-1.1) Sodium Level 134 mmol/L (136-145) Potassium Level 3.9 mmol/L (3.5-5.1) Chloride Level 95 mmol/L (98-107) Carbon Dioxide Level 27 mmol/L (21-32) Anion Gap 12 (6-14) Blood Urea Nitrogen 42 mg/dL (8-26) Creatinine 5.4 mg/dL (0.7-1.3) Estimated GFR (Cockcroft-Gault) 10.9 Glucose Level 212 mg/dL (70-99) Calcium Level 8.1 mg/dL (8.5-10.1) Phosphorus Level 5.2 mg/dL (2.6-4.7) Magnesium Level 1.9 mg/dL (1.8-2.4) Albumin 2.7 g/dL (3.4-5.0) Test 10/26/16 07:23 10/26/16 12:04 10/26/16 17:01 10/26/16 20:45 Glucose (Fingerstick) 212 mg/dL (70-99) 209 mg/dL (70-99) 154 mg/dL (70-99) 230 mg/dL (70-99) Test 10/27/16 05:15 10/27/16 07:38 Prothrombin Time 19.2 SEC (11.7-14.0) Prothromb Time International Ratio 1.7 (0.8-1.1) Sodium Level 134 mmol/L (136-145) Potassium Level 3.8 mmol/L (3.5-5.1) Chloride Level 97 mmol/L (98-107) Carbon Dioxide Level 28 mmol/L (21-32) Anion Gap 9 (6-14) Blood Urea Nitrogen 33 mg/dL (8-26) Creatinine 4.8 mg/dL (0.7-1.3) Estimated GFR (Cockcroft-Gault) 12.5 Glucose Level 220 mg/dL (70-99) Calcium Level 8.0 mg/dL (8.5-10.1) Phosphorus Level 4.9 mg/dL (2.6-4.7) Magnesium Level 1.7 mg/dL (1.8-2.4) Albumin 2.6 g/dL (3.4-5.0) Glucose (Fingerstick) 227 mg/dL (70-99) Laboratory Tests Test 10/26/16 12:04 10/26/16 17:01 10/26/16 20:45 10/27/16 05:15 Glucose (Fingerstick) 209 mg/dL (70-99) 154 mg/dL (70-99) 230 mg/dL (70-99) Prothrombin Time 19.2 SEC (11.7-14.0) Prothromb Time International Ratio 1.7 (0.8-1.1) Sodium Level 134 mmol/L (136-145) Potassium Level 3.8 mmol/L (3.5-5.1) Chloride Level 97 mmol/L (98-107) Carbon Dioxide Level 28 mmol/L (21-32) Anion Gap 9 (6-14) Blood Urea Nitrogen 33 mg/dL (8-26) Creatinine 4.8 mg/dL (0.7-1.3) Estimated GFR (Cockcroft-Gault) 12.5 Glucose Level 220 mg/dL (70-99) Calcium Level 8.0 mg/dL (8.5-10.1) Phosphorus Level 4.9 mg/dL (2.6-4.7) Magnesium Level 1.7 mg/dL (1.8-2.4) Albumin 2.6 g/dL (3.4-5.0) Test 10/27/16 07:38 Glucose (Fingerstick) 227 mg/dL (70-99) YUMIKO SCHAFER MD October 27, 2016 10:44
[2016-10-27] MEDS ORDERED: ALPR1TAB6 PO (10:46)
[2016-10-27] MEDS ORDERED: PANT40TA5 PO (10:46)
[2016-10-27] MEDS ORDERED: HYDR-2672 PO (10:46)
[2016-10-27] MEDS ORDERED: MAGNESIUM SULFATE 1GM 100 ML IV ONE (11:00)
--- NOTE | 2016-10-27 11:21 | PDOC ---
Subjective: Subjective: No complaints, says discharging today. No bleeding. Objective: Vital Signs: Vital Signs Date Time Temp Pulse Resp B/P (MAP) Pulse Ox O2 Delivery O2 Flow Rate FiO2 10/27/16 08:00 Room Air 10/27/16 07:34 98.0 62 20 108/56 (73) 96 3.0 98.0 Labs: Laboratory Tests Test 10/26/16 12:04 10/26/16 17:01 10/26/16 20:45 10/27/16 05:15 Glucose (Fingerstick) 209 mg/dL 154 mg/dL 230 mg/dL Prothrombin Time 19.2 SEC Prothromb Time International Ratio 1.7 Sodium Level 134 mmol/L Potassium Level 3.8 mmol/L Chloride Level 97 mmol/L Carbon Dioxide Level 28 mmol/L Anion Gap 9 Blood Urea Nitrogen 33 mg/dL Creatinine 4.8 mg/dL Estimated GFR (Cockcroft-Gault) 12.5 Glucose Level 220 mg/dL Calcium Level 8.0 mg/dL Phosphorus Level 4.9 mg/dL Magnesium Level 1.7 mg/dL Albumin 2.6 g/dL Test 10/27/16 07:38 Glucose (Fingerstick) 227 mg/dL Imaging: EGD 10/23/16 O-[id number]-rctqka reflux at 40cm with very mild stricturing, non-obstructive. G--Normal D--Edema, bulb. No discrete ulcer seen (though if on posterior wall at apex, couldn't see). No fresh or old blood present. Second portion normal. IMP: 1. Reflux esophagitis 2. Would be suspicious of unseen ulcer at apex of the bulb, posterior wall--seems a popular spot for NSAID DU's and difficult to see with 'scope. PE: GEN: NAD, dialyzing LUNGS: clear HEART: S1S2 ABD: soft, non-tender NEURO/PSYCH: A & O 3 A/P: Coffee-ground emesis, dark stools - resolved Anemia -Hgb improved/stable GERD, suspected NSAID lesion (duodenum) on EGD -on PPI H/o gastroparesis -takes metoclopramide 10mg QID at home CRC screen -up to date, colonoscopy in 2013 w/ diverticulosis and hemorrhoids -- Note DC plans, okay per GI. Continue PPI, avoid NSAIDs. LOLY RODRIGEZ October 27, 2016 11:21
[2016-10-27 15:27] VITALS: BP 128/63
[2016-10-27] MEDS: fentaNYL PF VIAL 100 MCG/2 ML VIAL IV PRN (15:57)
[2016-10-27] MEDS ORDERED: WARFARIN 4 MG TABLET. PO ONE (16:00)
--- NOTE | 2016-10-28 20:29 | PDOC ---
Provider Note Provider Note Discharge summary dictated. #[id number] RADHA MEYER MD October 28, 2016 20:29
--- NOTE | 2016-10-29 13:15 | DS ---
DATE OF DISCHARGE: 10/27/2016 REASON FOR ADMISSION TO THE HOSPITAL: Upper GI bleed. CONSULTATIONS: Dr. Mcmullen. PROCEDURES DONE: 1. EGD. 2. Blood Transfusion. 3. Hemodialysis. HOSPITAL COURSE: The patient is a 61-year-old male with history of diabetes, end-stage renal disease on dialysis, also atrial fibrillation on Coumadin and he has been taking Coumadin plus he has been having lot of pain, taking ibuprofen. He was complaining of dark bloody stools, so the patient was admitted to the hospital. His hemoglobin was low at 6.4. INR was 5. The patient was given vitamin K and FFP. It corrected the patient. The patient is on hemodialysis 3 times a week, was dialyzed in the hospital and the patient was given blood transfusion to keep hemoglobin around 9. Pt was seen by GI, Had EGD, which showed reflux esophagitis, suspicious ulcers of the apex of the bulb posterior wall, but it is hard to see with a scope. It was recommended that the patient not take any non steroidals and take narcotic pain medications for pain and was given Octeride IV and IV Protonix and later on changed to oral Protonix. The patient was seen by Physical Therapy Rehab, moved out of ICU, continued on hemodialysis and monitored INR. The patient also had a white count of 24,000, fever and x-ray showed infiltrates in the lung. The patient has vomited and it was felt that the patient had probable aspiration pneumonia, was treated with vancomycin and Zosyn. White count came down nicely to 8 at the time of discharge, hemoglobin remained stable at 8, platelets 290. Electrolytes were reasonable. Creatinine 4.8. The patient has dialysis. INR was 2.5 and it was felt that the patient could be discharged home. Monitor INR periodically to keep between 2 to 2.5, avoid nonsteroidals, continue Protonix and the patient is off IV antibiotics, received a week of antibiotics in the hospital. RADHA MEYER MD DR: TODD/makenna JOB#: [id number] / [id number] KAROLINA
== END 2016-10-27 17:33 | disposition home or self-care (01) | DRG 177 ==
LOC: ER 05:58 → 1 WEST ICU 08:41 → 6 SOUTH 10-24 15:00
PROVIDERS: ADMIT Internal Medicine; ATTEND Internal Medicine
PROC: 0DJ08ZZ Inspection of Upper Intestinal Tract, Via Natural or Artificial Opening Endoscopic (ICD-10-PCS; principal; 2016-10-22)
PROC: 30233L1 Transfusion of Nonautologous Fresh Plasma into Peripheral Vein, Percutaneous Approach (ICD-10-PCS; 2016-10-22)
PROC: 30233N1 Transfusion of Nonautologous Red Blood Cells into Peripheral Vein, Percutaneous Approach (ICD-10-PCS; 2016-10-22)
PROC: 30233K1 Transfusion of Nonautologous Frozen Plasma into Peripheral Vein, Percutaneous Approach (ICD-10-PCS; 2016-10-22)
PROC: 5A1D60Z (ICD-10-PCS; 2016-10-22)
DX: J69.0 Pneumonitis due to inhalation of food and vomit (principal); N18.6 End stage renal disease; K92.2 Gastrointestinal hemorrhage, unspecified; E87.2 Acidosis; D68.9 Coagulation defect, unspecified; D62 Acute posthemorrhagic anemia; I13.2 Hypertensive heart and chronic kidney disease with heart failure and with stage 5 chronic kidney disease, or end stage renal disease; I42.9 Cardiomyopathy, unspecified; R18.8 Other ascites; M86.9 Osteomyelitis, unspecified; I50.22 Chronic systolic (congestive) heart failure; I31.3 Pericardial effusion (noninflammatory); K21.0 Gastro-esophageal reflux disease with esophagitis; E11.22 Type 2 diabetes mellitus with diabetic chronic kidney disease; E11.43 Type 2 diabetes mellitus with diabetic autonomic (poly)neuropathy; E11.51 Type 2 diabetes mellitus with diabetic peripheral angiopathy without gangrene; E11.69 Type 2 diabetes mellitus with other specified complication; E78.5 Hyperlipidemia, unspecified; E21.3 Hyperparathyroidism, unspecified; F32.9 Major depressive disorder, single episode, unspecified; E11.621 Type 2 diabetes mellitus with foot ulcer; F41.9 Anxiety disorder, unspecified; G47.33 Obstructive sleep apnea (adult) (pediatric); I25.10 Atherosclerotic heart disease of native coronary artery without angina pectoris; I35.1 Nonrheumatic aortic (valve) insufficiency; I27.2 Other secondary pulmonary hypertension; K31.84 Gastroparesis; K57.90 Diverticulosis of intestine, part unspecified, without perforation or abscess without bleeding; L97.529 Non-pressure chronic ulcer of other part of left foot with unspecified severity; I49.5 Sick sinus syndrome; K59.00 Constipation, unspecified; R13.10 Dysphagia, unspecified; I95.9 Hypotension, unspecified; K80.20 Calculus of gallbladder without cholecystitis without obstruction; I48.0 Paroxysmal atrial fibrillation; D63.1 Anemia in chronic kidney disease; K64.9 Unspecified hemorrhoids; K44.9 Diaphragmatic hernia without obstruction or gangrene; K29.70 Gastritis, unspecified, without bleeding; K42.9 Umbilical hernia without obstruction or gangrene; D72.829 Elevated white blood cell count, unspecified; Z79.4 Long term (current) use of insulin; Z79.01 Long term (current) use of anticoagulants; Z99.2 Dependence on renal dialysis; Z83.3 Family history of diabetes mellitus; Z86.14 Personal history of Methicillin resistant Staphylococcus aureus infection; Z86.711 Personal history of pulmonary embolism; Z86.718 Personal history of other venous thrombosis and embolism; Z89.511 Acquired absence of right leg below knee; Z89.512 Acquired absence of left leg below knee
CPT/HCPCS: 36415; 36430; 71010; 74177; 80048; 80053; 80069; 82274; 82962; 83605; 83735; 84484; 85007; 85018; 85027; 85610; 85730; 86850; 86900; 86901; 86920; 86927; 87040; 87641; 93005; 96365; 96366; 96375; C9113; J0881; J1815; J2354; J2405; J2543; J2704; J2765; J3010; J3370; J3475; J7030; J7040; P9016; P9017; Q9967; 97116; 97530; 99291-25

== ENCOUNTER → 2016-11-04 | Outpatient (CLI) | payer OTHER, MEDICARE ==
[2016-10-27 15:27] VITALS: BP 128/63
[~2016-11-04] MED LIST changes: +ALPR1TAB6 PO; +DIPH1TAB PO; +FOLI0.8T21 PO; +HYDR-2672 PO; +METO10TA81 PO; +PANT40TA5 PO; +PIOG45TA19 PO; +SULF1TAB3 PO; +WARF2TAB7 PO
== END | disposition home or self-care (01) ==
LOC: PMGWOUND 08:23
PROVIDERS: ATTEND Preventive Medicine Undersea and Hyperbaric Medicine
DX: E11.621 Type 2 diabetes mellitus with foot ulcer (principal); L97.424 Non-pressure chronic ulcer of left heel and midfoot with necrosis of bone; F41.9 Anxiety disorder, unspecified; K21.9 Gastro-esophageal reflux disease without esophagitis; E78.5 Hyperlipidemia, unspecified; E21.3 Hyperparathyroidism, unspecified; I48.0 Paroxysmal atrial fibrillation; F32.9 Major depressive disorder, single episode, unspecified; E11.43 Type 2 diabetes mellitus with diabetic autonomic (poly)neuropathy; E11.51 Type 2 diabetes mellitus with diabetic peripheral angiopathy without gangrene; E11.69 Type 2 diabetes mellitus with other specified complication; M86.68 Other chronic osteomyelitis, other site; M86.8X7 Other osteomyelitis, ankle and foot; F15.90 Other stimulant use, unspecified, uncomplicated; E11.22 Type 2 diabetes mellitus with diabetic chronic kidney disease; I13.2 Hypertensive heart and chronic kidney disease with heart failure and with stage 5 chronic kidney disease, or end stage renal disease; N18.6 End stage renal disease; I50.22 Chronic systolic (congestive) heart failure; Z99.2 Dependence on renal dialysis; Z79.4 Long term (current) use of insulin; Z79.01 Long term (current) use of anticoagulants; Z87.01 Personal history of pneumonia (recurrent); Z86.711 Personal history of pulmonary embolism; Z86.718 Personal history of other venous thrombosis and embolism; Z86.14 Personal history of Methicillin resistant Staphylococcus aureus infection; Z89.512 Acquired absence of left leg below knee; Z89.511 Acquired absence of right leg below knee
CPT/HCPCS: 97597

== ENCOUNTER → 2016-11-11 | Outpatient (CLI) | payer OTHER, MEDICARE ==
[2016-10-27 15:27] VITALS: BP 128/63
[~2016-11-11] MED LIST changes: -ESCI10TA PO; +ESCITALOPRAM OX10 MG PO; -GUAI600T38 PO; +GUAI600T47 PO; -HYDR-2666 PO; -HYDR-2672 PO; +HYDR-2758 PO; +HYDR-2766 PO; -PIOG45TA PO; -PIOG45TA19 PO; +PIOG45TA3 PO; +PIOG45TA40 PO; +SULF-143 PO; -SULF1TAB3 PO
== END | disposition home or self-care (01) ==
LOC: PMGWOUND 10:15
PROVIDERS: ATTEND Preventive Medicine Undersea and Hyperbaric Medicine
DX: E11.621 Type 2 diabetes mellitus with foot ulcer (principal); L97.424 Non-pressure chronic ulcer of left heel and midfoot with necrosis of bone; F41.9 Anxiety disorder, unspecified; K21.9 Gastro-esophageal reflux disease without esophagitis; E78.5 Hyperlipidemia, unspecified; E21.3 Hyperparathyroidism, unspecified; F32.9 Major depressive disorder, single episode, unspecified; F15.90 Other stimulant use, unspecified, uncomplicated; I48.0 Paroxysmal atrial fibrillation; E11.69 Type 2 diabetes mellitus with other specified complication; M86.68 Other chronic osteomyelitis, other site; M86.8X7 Other osteomyelitis, ankle and foot; E11.51 Type 2 diabetes mellitus with diabetic peripheral angiopathy without gangrene; E11.43 Type 2 diabetes mellitus with diabetic autonomic (poly)neuropathy; E11.22 Type 2 diabetes mellitus with diabetic chronic kidney disease; I13.2 Hypertensive heart and chronic kidney disease with heart failure and with stage 5 chronic kidney disease, or end stage renal disease; N18.6 End stage renal disease; I50.22 Chronic systolic (congestive) heart failure; Z99.2 Dependence on renal dialysis; Z87.01 Personal history of pneumonia (recurrent); Z86.14 Personal history of Methicillin resistant Staphylococcus aureus infection; Z86.711 Personal history of pulmonary embolism; Z79.4 Long term (current) use of insulin; Z79.01 Long term (current) use of anticoagulants; Z89.512 Acquired absence of left leg below knee; Z89.511 Acquired absence of right leg below knee
CPT/HCPCS: 97597

== ENCOUNTER → 2016-11-18 | Outpatient (CLI) | payer OTHER, MEDICARE ==
[2016-10-27 15:27] VITALS: BP 128/63
== END | disposition home or self-care (01) ==
LOC: PMGWOUND 11:16
PROVIDERS: ATTEND Preventive Medicine Undersea and Hyperbaric Medicine
DX: E11.621 Type 2 diabetes mellitus with foot ulcer (principal); L97.424 Non-pressure chronic ulcer of left heel and midfoot with necrosis of bone; K21.9 Gastro-esophageal reflux disease without esophagitis; F41.9 Anxiety disorder, unspecified; E11.22 Type 2 diabetes mellitus with diabetic chronic kidney disease; I13.2 Hypertensive heart and chronic kidney disease with heart failure and with stage 5 chronic kidney disease, or end stage renal disease; I50.32 Chronic diastolic (congestive) heart failure; N18.6 End stage renal disease; E78.5 Hyperlipidemia, unspecified; E21.3 Hyperparathyroidism, unspecified; F32.9 Major depressive disorder, single episode, unspecified; E11.69 Type 2 diabetes mellitus with other specified complication; M86.68 Other chronic osteomyelitis, other site; M86.8X7 Other osteomyelitis, ankle and foot; F15.90 Other stimulant use, unspecified, uncomplicated; I48.0 Paroxysmal atrial fibrillation; E11.51 Type 2 diabetes mellitus with diabetic peripheral angiopathy without gangrene; E11.43 Type 2 diabetes mellitus with diabetic autonomic (poly)neuropathy; Z86.14 Personal history of Methicillin resistant Staphylococcus aureus infection; Z86.711 Personal history of pulmonary embolism; Z87.01 Personal history of pneumonia (recurrent); Z79.4 Long term (current) use of insulin; Z79.01 Long term (current) use of anticoagulants; Z89.511 Acquired absence of right leg below knee; Z89.512 Acquired absence of left leg below knee; Z99.2 Dependence on renal dialysis
CPT/HCPCS: 97597

== ENCOUNTER → 2016-11-25 | Outpatient (CLI) | payer OTHER, MEDICARE ==
[2016-10-27 15:27] VITALS: BP 128/63
== END | disposition home or self-care (01) ==
LOC: PMGWOUND 11:15
PROVIDERS: ATTEND Preventive Medicine Undersea and Hyperbaric Medicine
DX: E11.621 Type 2 diabetes mellitus with foot ulcer (principal); L97.424 Non-pressure chronic ulcer of left heel and midfoot with necrosis of bone; F41.9 Anxiety disorder, unspecified; F32.9 Major depressive disorder, single episode, unspecified; K21.9 Gastro-esophageal reflux disease without esophagitis; E78.5 Hyperlipidemia, unspecified; E11.43 Type 2 diabetes mellitus with diabetic autonomic (poly)neuropathy; E11.69 Type 2 diabetes mellitus with other specified complication; M86.8X7 Other osteomyelitis, ankle and foot; M86.68 Other chronic osteomyelitis, other site; E11.51 Type 2 diabetes mellitus with diabetic peripheral angiopathy without gangrene; E11.22 Type 2 diabetes mellitus with diabetic chronic kidney disease; I13.2 Hypertensive heart and chronic kidney disease with heart failure and with stage 5 chronic kidney disease, or end stage renal disease; I50.42 Chronic combined systolic (congestive) and diastolic (congestive) heart failure; N18.6 End stage renal disease; E21.3 Hyperparathyroidism, unspecified; I48.0 Paroxysmal atrial fibrillation; F15.90 Other stimulant use, unspecified, uncomplicated; Z86.14 Personal history of Methicillin resistant Staphylococcus aureus infection; Z79.01 Long term (current) use of anticoagulants; Z99.2 Dependence on renal dialysis; Z79.4 Long term (current) use of insulin; Z87.01 Personal history of pneumonia (recurrent); Z86.711 Personal history of pulmonary embolism; Z86.718 Personal history of other venous thrombosis and embolism; Z89.512 Acquired absence of left leg below knee; Z89.511 Acquired absence of right leg below knee
CPT/HCPCS: 97597

== ENCOUNTER → 2016-12-02 | Outpatient (CLI) | payer OTHER, MEDICARE | END | disposition home or self-care (01) | LOC: PMGWOUND 11:56 | PROVIDERS: ATTEND Preventive Medicine Undersea and Hyperbaric Medicine | DX: E11.621 Type 2 diabetes mellitus with foot ulcer (principal); L97.424 Non-pressure chronic ulcer of left heel and midfoot with necrosis of bone; S90.425D Blister (nonthermal), left lesser toe(s), subsequent encounter; F41.9 Anxiety disorder, unspecified; F32.9 Major depressive disorder, single episode, unspecified; F15.90 Other stimulant use, unspecified, uncomplicated; K21.9 Gastro-esophageal reflux disease without esophagitis; E78.5 Hyperlipidemia, unspecified; E21.3 Hyperparathyroidism, unspecified; E11.22 Type 2 diabetes mellitus with diabetic chronic kidney disease; I13.2 Hypertensive heart and chronic kidney disease with heart failure and with stage 5 chronic kidney disease, or end stage renal disease; N18.6 End stage renal disease; I50.42 Chronic combined systolic (congestive) and diastolic (congestive) heart failure; E11.69 Type 2 diabetes mellitus with other specified complication; M86.8X7 Other osteomyelitis, ankle and foot; E11.43 Type 2 diabetes mellitus with diabetic autonomic (poly)neuropathy; I48.0 Paroxysmal atrial fibrillation; Z99.2 Dependence on renal dialysis; Z86.14 Personal history of Methicillin resistant Staphylococcus aureus infection; Z86.718 Personal history of other venous thrombosis and embolism; Z87.01 Personal history of pneumonia (recurrent); Z86.711 Personal history of pulmonary embolism; Z79.4 Long term (current) use of insulin; Z89.511 Acquired absence of right leg below knee; Z89.512 Acquired absence of left leg below knee; X58.XXXD Exposure to other specified factors, subsequent encounter | CPT/HCPCS: 11042; 97597 ==

== ENCOUNTER → 2016-12-09 | Outpatient (CLI) | payer OTHER, MEDICARE | END | disposition home or self-care (01) | LOC: PMGWOUND 11:03 | PROVIDERS: ATTEND Preventive Medicine Undersea and Hyperbaric Medicine | DX: E11.621 Type 2 diabetes mellitus with foot ulcer (principal); L97.424 Non-pressure chronic ulcer of left heel and midfoot with necrosis of bone; L97.521 Non-pressure chronic ulcer of other part of left foot limited to breakdown of skin; F41.9 Anxiety disorder, unspecified; K21.9 Gastro-esophageal reflux disease without esophagitis; E78.5 Hyperlipidemia, unspecified; E21.3 Hyperparathyroidism, unspecified; F32.9 Major depressive disorder, single episode, unspecified; E11.43 Type 2 diabetes mellitus with diabetic autonomic (poly)neuropathy; E11.51 Type 2 diabetes mellitus with diabetic peripheral angiopathy without gangrene; E11.22 Type 2 diabetes mellitus with diabetic chronic kidney disease; I13.2 Hypertensive heart and chronic kidney disease with heart failure and with stage 5 chronic kidney disease, or end stage renal disease; N18.6 End stage renal disease; I50.42 Chronic combined systolic (congestive) and diastolic (congestive) heart failure; E11.69 Type 2 diabetes mellitus with other specified complication; M86.8X7 Other osteomyelitis, ankle and foot; F15.90 Other stimulant use, unspecified, uncomplicated; I48.0 Paroxysmal atrial fibrillation; Z86.14 Personal history of Methicillin resistant Staphylococcus aureus infection; Z86.718 Personal history of other venous thrombosis and embolism; Z86.711 Personal history of pulmonary embolism; Z87.01 Personal history of pneumonia (recurrent); Z79.01 Long term (current) use of anticoagulants; Z99.2 Dependence on renal dialysis; Z79.4 Long term (current) use of insulin; Z89.511 Acquired absence of right leg below knee; Z89.512 Acquired absence of left leg below knee; M86.68 Other chronic osteomyelitis, other site | CPT/HCPCS: 97597; 97598 ==

== ENCOUNTER → 2016-12-16 | Outpatient (CLI) | payer OTHER, MEDICARE | END | disposition home or self-care (01) | LOC: PMGWOUND 11:19 | PROVIDERS: ATTEND Preventive Medicine Undersea and Hyperbaric Medicine | DX: E11.621 Type 2 diabetes mellitus with foot ulcer (principal); L97.424 Non-pressure chronic ulcer of left heel and midfoot with necrosis of bone; F41.9 Anxiety disorder, unspecified; K21.9 Gastro-esophageal reflux disease without esophagitis; E78.5 Hyperlipidemia, unspecified; E21.3 Hyperparathyroidism, unspecified; F32.9 Major depressive disorder, single episode, unspecified; E11.69 Type 2 diabetes mellitus with other specified complication; M86.68 Other chronic osteomyelitis, other site; M86.8X7 Other osteomyelitis, ankle and foot; F15.90 Other stimulant use, unspecified, uncomplicated; I48.0 Paroxysmal atrial fibrillation; E11.51 Type 2 diabetes mellitus with diabetic peripheral angiopathy without gangrene; E11.43 Type 2 diabetes mellitus with diabetic autonomic (poly)neuropathy; I13.2 Hypertensive heart and chronic kidney disease with heart failure and with stage 5 chronic kidney disease, or end stage renal disease; E11.22 Type 2 diabetes mellitus with diabetic chronic kidney disease; N18.6 End stage renal disease; I50.42 Chronic combined systolic (congestive) and diastolic (congestive) heart failure; Z86.718 Personal history of other venous thrombosis and embolism; Z86.14 Personal history of Methicillin resistant Staphylococcus aureus infection; Z87.01 Personal history of pneumonia (recurrent); Z99.2 Dependence on renal dialysis; Z86.711 Personal history of pulmonary embolism; Z79.4 Long term (current) use of insulin; Z79.01 Long term (current) use of anticoagulants; Z89.511 Acquired absence of right leg below knee; Z89.512 Acquired absence of left leg below knee | CPT/HCPCS: 97597 ==

== ENCOUNTER → 2016-12-23 | Outpatient (CLI) | payer OTHER, MEDICARE | END | disposition home or self-care (01) | LOC: PMGWOUND 10:52 | PROVIDERS: ATTEND Preventive Medicine Undersea and Hyperbaric Medicine | DX: E11.621 Type 2 diabetes mellitus with foot ulcer (principal); L97.424 Non-pressure chronic ulcer of left heel and midfoot with necrosis of bone; E11.69 Type 2 diabetes mellitus with other specified complication; M86.68 Other chronic osteomyelitis, other site; I48.91 Unspecified atrial fibrillation; E11.22 Type 2 diabetes mellitus with diabetic chronic kidney disease; I13.2 Hypertensive heart and chronic kidney disease with heart failure and with stage 5 chronic kidney disease, or end stage renal disease; I50.42 Chronic combined systolic (congestive) and diastolic (congestive) heart failure; N18.6 End stage renal disease; Z99.2 Dependence on renal dialysis; F41.9 Anxiety disorder, unspecified; K21.9 Gastro-esophageal reflux disease without esophagitis; E78.5 Hyperlipidemia, unspecified; F32.9 Major depressive disorder, single episode, unspecified; E11.43 Type 2 diabetes mellitus with diabetic autonomic (poly)neuropathy; E11.51 Type 2 diabetes mellitus with diabetic peripheral angiopathy without gangrene; Z86.711 Personal history of pulmonary embolism; Z89.511 Acquired absence of right leg below knee; Z79.4 Long term (current) use of insulin; Z86.718 Personal history of other venous thrombosis and embolism | CPT/HCPCS: 97597 ==

== ENCOUNTER → 2016-12-30 | Outpatient (CLI) | payer OTHER, MEDICARE | END | disposition home or self-care (01) | LOC: PMGWOUND 11:27 | PROVIDERS: ATTEND Emergency Medicine Undersea and Hyperbaric Medicine | DX: E11.621 Type 2 diabetes mellitus with foot ulcer (principal); L97.424 Non-pressure chronic ulcer of left heel and midfoot with necrosis of bone; E11.622 Type 2 diabetes mellitus with other skin ulcer; L98.491 Non-pressure chronic ulcer of skin of other sites limited to breakdown of skin; S90.425D Blister (nonthermal), left lesser toe(s), subsequent encounter; E11.22 Type 2 diabetes mellitus with diabetic chronic kidney disease; I13.2 Hypertensive heart and chronic kidney disease with heart failure and with stage 5 chronic kidney disease, or end stage renal disease; I50.42 Chronic combined systolic (congestive) and diastolic (congestive) heart failure; N18.6 End stage renal disease; E11.69 Type 2 diabetes mellitus with other specified complication; M86.8X7 Other osteomyelitis, ankle and foot; M86.68 Other chronic osteomyelitis, other site; K21.9 Gastro-esophageal reflux disease without esophagitis; E11.43 Type 2 diabetes mellitus with diabetic autonomic (poly)neuropathy; E11.51 Type 2 diabetes mellitus with diabetic peripheral angiopathy without gangrene; F15.90 Other stimulant use, unspecified, uncomplicated; E21.3 Hyperparathyroidism, unspecified; I48.0 Paroxysmal atrial fibrillation; F41.9 Anxiety disorder, unspecified; F32.9 Major depressive disorder, single episode, unspecified; Z99.2 Dependence on renal dialysis; Z87.01 Personal history of pneumonia (recurrent); Z86.711 Personal history of pulmonary embolism; Z89.412 Acquired absence of left great toe; Z89.511 Acquired absence of right leg below knee; Z79.4 Long term (current) use of insulin; Z86.718 Personal history of other venous thrombosis and embolism; Z79.01 Long term (current) use of anticoagulants; Z86.14 Personal history of Methicillin resistant Staphylococcus aureus infection; X58.XXXD Exposure to other specified factors, subsequent encounter | CPT/HCPCS: 99214 ==

== ENCOUNTER → 2017-01-06 | Outpatient (CLI) | payer OTHER, MEDICARE | END | disposition home or self-care (01) | LOC: PMGWOUND 09:15 | PROVIDERS: ATTEND Emergency Medicine Undersea and Hyperbaric Medicine | DX: E11.621 Type 2 diabetes mellitus with foot ulcer (principal); L97.424 Non-pressure chronic ulcer of left heel and midfoot with necrosis of bone; E11.69 Type 2 diabetes mellitus with other specified complication; M86.68 Other chronic osteomyelitis, other site; E11.22 Type 2 diabetes mellitus with diabetic chronic kidney disease; I13.2 Hypertensive heart and chronic kidney disease with heart failure and with stage 5 chronic kidney disease, or end stage renal disease; I50.9 Heart failure, unspecified; N18.6 End stage renal disease; Z99.2 Dependence on renal dialysis; I48.91 Unspecified atrial fibrillation; Z86.711 Personal history of pulmonary embolism; Z89.412 Acquired absence of left great toe; Z89.511 Acquired absence of right leg below knee | CPT/HCPCS: 11042; 97597 ==

== ENCOUNTER → 2017-01-13 | Outpatient (CLI) | payer OTHER, MEDICARE | END | disposition home or self-care (01) | LOC: PMGWOUND 10:56 | PROVIDERS: ATTEND Preventive Medicine Undersea and Hyperbaric Medicine | DX: E11.621 Type 2 diabetes mellitus with foot ulcer (principal); L97.424 Non-pressure chronic ulcer of left heel and midfoot with necrosis of bone; E11.622 Type 2 diabetes mellitus with other skin ulcer; L98.491 Non-pressure chronic ulcer of skin of other sites limited to breakdown of skin; E11.69 Type 2 diabetes mellitus with other specified complication; M86.8X7 Other osteomyelitis, ankle and foot; E11.22 Type 2 diabetes mellitus with diabetic chronic kidney disease; I13.2 Hypertensive heart and chronic kidney disease with heart failure and with stage 5 chronic kidney disease, or end stage renal disease; I50.9 Heart failure, unspecified; N18.6 End stage renal disease; I48.91 Unspecified atrial fibrillation; Z87.01 Personal history of pneumonia (recurrent); Z86.711 Personal history of pulmonary embolism; Z89.511 Acquired absence of right leg below knee; Z89.412 Acquired absence of left great toe | CPT/HCPCS: 97597 ==

== ENCOUNTER → 2017-01-20 | Outpatient (CLI) | payer OTHER, MEDICARE | END | disposition home or self-care (01) | LOC: PMGWOUND 11:07 | PROVIDERS: ATTEND Preventive Medicine Undersea and Hyperbaric Medicine | DX: E11.621 Type 2 diabetes mellitus with foot ulcer (principal); L97.424 Non-pressure chronic ulcer of left heel and midfoot with necrosis of bone; S90.425D Blister (nonthermal), left lesser toe(s), subsequent encounter; E11.22 Type 2 diabetes mellitus with diabetic chronic kidney disease; I13.2 Hypertensive heart and chronic kidney disease with heart failure and with stage 5 chronic kidney disease, or end stage renal disease; N18.6 End stage renal disease; I50.42 Chronic combined systolic (congestive) and diastolic (congestive) heart failure; E11.69 Type 2 diabetes mellitus with other specified complication; M86.68 Other chronic osteomyelitis, other site; F41.9 Anxiety disorder, unspecified; K21.9 Gastro-esophageal reflux disease without esophagitis; E21.3 Hyperparathyroidism, unspecified; F32.9 Major depressive disorder, single episode, unspecified; F15.90 Other stimulant use, unspecified, uncomplicated; I48.0 Paroxysmal atrial fibrillation; E11.43 Type 2 diabetes mellitus with diabetic autonomic (poly)neuropathy; E11.51 Type 2 diabetes mellitus with diabetic peripheral angiopathy without gangrene; E78.5 Hyperlipidemia, unspecified; Z86.711 Personal history of pulmonary embolism; Z87.01 Personal history of pneumonia (recurrent); Z86.14 Personal history of Methicillin resistant Staphylococcus aureus infection; Z86.718 Personal history of other venous thrombosis and embolism; Z99.2 Dependence on renal dialysis; Z79.4 Long term (current) use of insulin; Z79.01 Long term (current) use of anticoagulants; Z89.412 Acquired absence of left great toe; Z89.511 Acquired absence of right leg below knee; X58.XXXD Exposure to other specified factors, subsequent encounter | CPT/HCPCS: 11042; 97597 ==

== ENCOUNTER → 2017-01-27 | Outpatient (CLI) | payer OTHER, MEDICARE | END | disposition home or self-care (01) | LOC: PMGWOUND 10:06 | PROVIDERS: ATTEND Preventive Medicine Undersea and Hyperbaric Medicine | DX: E11.621 Type 2 diabetes mellitus with foot ulcer (principal); L97.424 Non-pressure chronic ulcer of left heel and midfoot with necrosis of bone; L97.521 Non-pressure chronic ulcer of other part of left foot limited to breakdown of skin; E11.69 Type 2 diabetes mellitus with other specified complication; M86.68 Other chronic osteomyelitis, other site; E11.22 Type 2 diabetes mellitus with diabetic chronic kidney disease; I13.2 Hypertensive heart and chronic kidney disease with heart failure and with stage 5 chronic kidney disease, or end stage renal disease; I50.9 Heart failure, unspecified; N18.6 End stage renal disease; Z99.2 Dependence on renal dialysis; Z86.711 Personal history of pulmonary embolism; Z89.511 Acquired absence of right leg below knee; Z89.412 Acquired absence of left great toe | CPT/HCPCS: 97597 ==

== ENCOUNTER → 2017-02-03 | Outpatient (CLI) | payer OTHER, MEDICARE ==
--- NOTE | 2017-02-03 12:20 | RAD ---
Indication ulcer on the second toe which will not heal. AP oblique and lateral views of the left foot were obtained. There is marked bony demineralization. The patient is status post amputation of the great toe. There are some degenerative changes at the metatarsal phalangeal joints of the second, third and fourth digits. There is deformity of the second metacarpal similar to an examination 03/11/2016. There is fusion of the PIP and DIP joints of the second digit. There is chronic appearing deformity associated with the calcaneus. An acute bony finding is not seen. Plain film findings of osteomyelitis are not seen. Extensive vascular calcification is noted IMPRESSION: Chronic changes. No definite acute finding seen
== END | disposition home or self-care (01) ==
LOC: PMGWOUND 09:58
PROVIDERS: ATTEND Preventive Medicine Undersea and Hyperbaric Medicine
DX: E11.621 Type 2 diabetes mellitus with foot ulcer (principal); L97.424 Non-pressure chronic ulcer of left heel and midfoot with necrosis of bone; S90.424D Blister (nonthermal), right lesser toe(s), subsequent encounter; I13.2 Hypertensive heart and chronic kidney disease with heart failure and with stage 5 chronic kidney disease, or end stage renal disease; E11.22 Type 2 diabetes mellitus with diabetic chronic kidney disease; I50.42 Chronic combined systolic (congestive) and diastolic (congestive) heart failure; N18.6 End stage renal disease; E11.69 Type 2 diabetes mellitus with other specified complication; M86.68 Other chronic osteomyelitis, other site; M86.8X7 Other osteomyelitis, ankle and foot; F41.9 Anxiety disorder, unspecified; K21.9 Gastro-esophageal reflux disease without esophagitis; E78.5 Hyperlipidemia, unspecified; E11.43 Type 2 diabetes mellitus with diabetic autonomic (poly)neuropathy; E11.51 Type 2 diabetes mellitus with diabetic peripheral angiopathy without gangrene; E21.3 Hyperparathyroidism, unspecified; F32.9 Major depressive disorder, single episode, unspecified; I48.0 Paroxysmal atrial fibrillation; F15.90 Other stimulant use, unspecified, uncomplicated; Z86.711 Personal history of pulmonary embolism; Z86.14 Personal history of Methicillin resistant Staphylococcus aureus infection; Z87.01 Personal history of pneumonia (recurrent); Z86.718 Personal history of other venous thrombosis and embolism; Z99.2 Dependence on renal dialysis; Z79.4 Long term (current) use of insulin; Z79.01 Long term (current) use of anticoagulants; Z89.512 Acquired absence of left leg below knee; X58.XXXD Exposure to other specified factors, subsequent encounter
CPT/HCPCS: 73630; 97597

== ENCOUNTER → 2017-02-10 | Outpatient (CLI) | payer OTHER, MEDICARE | END | disposition home or self-care (01) | LOC: PMGWOUND 09:59 | PROVIDERS: ATTEND Preventive Medicine Undersea and Hyperbaric Medicine | DX: E11.621 Type 2 diabetes mellitus with foot ulcer (principal); L97.424 Non-pressure chronic ulcer of left heel and midfoot with necrosis of bone; F41.9 Anxiety disorder, unspecified; K21.9 Gastro-esophageal reflux disease without esophagitis; E11.22 Type 2 diabetes mellitus with diabetic chronic kidney disease; I13.2 Hypertensive heart and chronic kidney disease with heart failure and with stage 5 chronic kidney disease, or end stage renal disease; N18.6 End stage renal disease; I50.43 Acute on chronic combined systolic (congestive) and diastolic (congestive) heart failure; E78.5 Hyperlipidemia, unspecified; E21.3 Hyperparathyroidism, unspecified; F32.9 Major depressive disorder, single episode, unspecified; E11.69 Type 2 diabetes mellitus with other specified complication; M86.8X7 Other osteomyelitis, ankle and foot; M86.68 Other chronic osteomyelitis, other site; I48.0 Paroxysmal atrial fibrillation; E11.43 Type 2 diabetes mellitus with diabetic autonomic (poly)neuropathy; E11.51 Type 2 diabetes mellitus with diabetic peripheral angiopathy without gangrene; F15.90 Other stimulant use, unspecified, uncomplicated; Z86.14 Personal history of Methicillin resistant Staphylococcus aureus infection; Z86.718 Personal history of other venous thrombosis and embolism; Z86.711 Personal history of pulmonary embolism; Z89.511 Acquired absence of right leg below knee; Z89.512 Acquired absence of left leg below knee; Z99.2 Dependence on renal dialysis; Z79.01 Long term (current) use of anticoagulants; Z79.4 Long term (current) use of insulin | CPT/HCPCS: 97597 ==

== ENCOUNTER → 2017-02-17 | Outpatient (CLI) | payer OTHER, MEDICARE | END | disposition home or self-care (01) | LOC: PMGWOUND 10:34 | PROVIDERS: ATTEND Preventive Medicine Undersea and Hyperbaric Medicine | DX: E11.621 Type 2 diabetes mellitus with foot ulcer (principal); L97.424 Non-pressure chronic ulcer of left heel and midfoot with necrosis of bone; L97.521 Non-pressure chronic ulcer of other part of left foot limited to breakdown of skin; F41.9 Anxiety disorder, unspecified; K21.9 Gastro-esophageal reflux disease without esophagitis; E11.22 Type 2 diabetes mellitus with diabetic chronic kidney disease; I13.2 Hypertensive heart and chronic kidney disease with heart failure and with stage 5 chronic kidney disease, or end stage renal disease; N18.6 End stage renal disease; I50.43 Acute on chronic combined systolic (congestive) and diastolic (congestive) heart failure; E78.5 Hyperlipidemia, unspecified; E21.3 Hyperparathyroidism, unspecified; F32.9 Major depressive disorder, single episode, unspecified; E11.69 Type 2 diabetes mellitus with other specified complication; M86.8X7 Other osteomyelitis, ankle and foot; M86.68 Other chronic osteomyelitis, other site; F15.90 Other stimulant use, unspecified, uncomplicated; I48.0 Paroxysmal atrial fibrillation; E11.43 Type 2 diabetes mellitus with diabetic autonomic (poly)neuropathy; E11.51 Type 2 diabetes mellitus with diabetic peripheral angiopathy without gangrene; Z86.14 Personal history of Methicillin resistant Staphylococcus aureus infection; Z86.718 Personal history of other venous thrombosis and embolism; Z86.711 Personal history of pulmonary embolism; Z87.01 Personal history of pneumonia (recurrent); Z89.511 Acquired absence of right leg below knee; Z89.512 Acquired absence of left leg below knee; Z79.01 Long term (current) use of anticoagulants; Z79.4 Long term (current) use of insulin; Z99.2 Dependence on renal dialysis | CPT/HCPCS: 97597 ==

== ENCOUNTER 2017-02-23 16:56 | Inpatient (IN) | payer OTHER, MEDICARE ==
[~2017-02-23] VITALS: Ht 190.5 cm; Wt 120.7 kg
--- NOTE | 2017-02-23 17:11 | PHYS DOC ---
Past Medical History Past Medical History: A-Fib, CHF, Diabetes-Type II, Hypertension, Renal Failure , Other Additional Past Medical Histor: Respiratory arrest Past Surgical History: Other Additional Past Surgical Histo: PEG placement, right BKA, left great toe, left arm shunt, Alcohol Use: None Drug Use: None Adult General Chief Complaint Chief Complaint: LOWER EXT PAIN HPI HPI Patient is a 61 year old male who presents with of his left second toe on his left foot. He states it started couple weeks ago is been getting worse. According to his she states the bones been exposed and they've been going to wound care 2 nights ago she noticed there is redness of the leg and he hasn't been filling as well as he normally does. He denies any nausea but states he's had less appetite. He denies any fevers but has felt some chills. He denies any vomiting. He follows with Dr. Prater. He also does dialysis on Saturdays and came from dialysis today. Review of Systems Review of Systems Constitutional: As it for chills [] Eyes: Denies change in visual acuity, redness, or eye pain [] HENT: Denies nasal congestion or sore throat [] Respiratory: Denies cough or shortness of breath [] Cardiovascular: No additional information not addressed in HPI [] GI: Denies abdominal pain, nausea, vomiting, bloody stools or diarrhea [] : Denies dysuria or hematuria [] Musculoskeletal: Denies back pain or joint pain [] Integument: Positive for redness and warmth of left lower extremity Neurologic: Denies headache, focal weakness or sensory changes [] Endocrine: Denies polyuria or polydipsia [] Current Medications Current Medications Current Medications Medications (Trade) Dose Ordered Sig/Nanette Start Time Stop Time Status Last Admin Dose Admin Lorazepam (Ativan) 0.5 mg 1X ONCE 02/23/17 18:15 02/23/17 18:16 DC 02/23/17 18:23 0.5 MG Allergies Allergies Allergies Coded Allergies Type Severity Reaction Last Updated Verified I S O L A T I O N *CONTACT* Allergy Unknown 10/23/16 Yes No Known Medication Allergies Allergy Unknown 10/23/16 Yes Physical Exam Physical Exam Constitutional: Well developed, well nourished, no acute distress, non-toxic appearance. [] HENT: Normocephalic, atraumatic, bilateral external ears normal, oropharynx moist, no oral exudates, nose normal. [] Eyes: PERRLA, EOMI, conjunctiva normal, no discharge. [] Neck: Normal range of motion, no tenderness, supple, no stridor. [] Cardiovascular:Heart rate regular rhythm, no murmur [] Lungs & Thorax: Bilateral breath sounds clear to auscultation [] Abdomen: Bowel sounds normal, soft, no tenderness, no masses, no pulsatile masses. [] Skin: Warm, dry, no erythema, no rash. [] Back: No tenderness, no CVA tenderness. [] Extremities: Right BKA, left lower show many erythema from mid calf to toes with 1+ pitting edema, great toe surgically removed, second toe on the left with erythema and an open wound. Neurologic: Alert and oriented X 3, normal motor function, normal sensory function, no focal deficits noted. [] Psychologic: Affect normal, judgement normal, mood normal. [] Current Patient Data Vital Signs Vital Signs Date Time Temp Pulse Resp B/P (MAP) Pulse Ox O2 Delivery O2 Flow Rate FiO2 02/23/17 17:20 98.4 63 20 128/58 (81) 98 Room Air 98.4 Lab Values Laboratory Tests Test 02/23/17 18:05 White Blood Count 15.1 x10^3/uL (4.0-11.0) H Red Blood Count 3.72 x10^6/uL (4.30-5.70) L Hemoglobin 10.5 g/dL (13.0-17.5) L Hematocrit 33.1 % (39.0-53.0) L Mean Corpuscular Volume 89 fL (79-100) Mean Corpuscular Hemoglobin 28 pg (25-35) Mean Corpuscular Hemoglobin Concent 32 g/dL (31-37) Red Cell Distribution Width 17.6 % (11.5-14.5) H Platelet Count 425 x10^3/uL (140-400) H Neutrophils (%) (Auto) 90 % (31-73) H Lymphocytes (%) (Auto) 4 % (24-48) L Monocytes (%) (Auto) 5 % (0-9) Eosinophils (%) (Auto) 1 % (0-3) Basophils (%) (Auto) 0 % (0-3) Neutrophils # (Auto) 13.6 x10^3uL (1.8-7.7) H Lymphocytes # (Auto) 0.7 x10^3/uL (1.0-4.8) L Monocytes # (Auto) 0.7 x10^3/uL (0.0-1.1) Eosinophils # (Auto) 0.1 x10^3/uL (0.0-0.7) Basophils # (Auto) 0.1 x10^3/uL (0.0-0.2) Platelet Estimate Pending Prothrombin Time 33.2 SEC (11.7-14.0) H Prothrombin Time INR 3.5 (0.8-1.1) H PTT 55 SEC (24-38) H Sodium Level 135 mmol/L (136-145) L Potassium Level 3.6 mmol/L (3.5-5.1) Chloride Level 92 mmol/L (98-107) L Carbon Dioxide Level 29 mmol/L (21-32) Anion Gap 14 (6-14) Blood Urea Nitrogen 35 mg/dL (8-26) H Creatinine 4.3 mg/dL (0.7-1.3) H Estimated GFR (Cockcroft-Gault) 14.2 Glucose Level 137 mg/dL (70-99) H Lactic Acid Level 1.3 mmol/L (0.4-2.0) Calcium Level 8.9 mg/dL (8.5-10.1) Total Bilirubin 0.9 mg/dL (0.2-1.0) Direct Bilirubin 0.4 mg/dL (0.0-0.2) H Aspartate Amino Transferase (AST) 33 U/L (15-37) Alanine Aminotransferase (ALT) 42 U/L (16-63) Alkaline Phosphatase 284 U/L (46-116) H Total Protein 8.5 g/dL (6.4-8.2) H Albumin 3.3 g/dL (3.4-5.0) L Laboratory Tests 02/23/17 18:05 Laboratory Tests 02/23/17 18:05 EKG EKG [] Radiology/Procedures Radiology/Procedures Left lower extremity 3 view x-ray shows osteoporosis, surgical removal of the great toe, degeneration of the second toe with soft tissue swelling, no foreign bodies appreciated. Impressions: Cellulitis of the left lower extremities Diabetes End-stage renal disease on hemodialysis Wednesday On anticoagulation Course & Med Decision Making Course & Med Decision Making Pertinent Labs and Imaging studies reviewed. (See chart for details) Patient presents with cellulitis of the left calf and a wound on his left foot that's likely the source. Dr. Prater is planning on taking him to the OR tomorrow to remove his second toe on his left foot. I've started Vanco and Zosyn per pharmacy dosing for his renal disease per 's request. I spoke with Dr. Lezama he wanted to units of FFP given and the patient's Coumadin held tonight. Patient isn't agreeable condition and interim orders have been written. Dragon Disclaimer Dragon Disclaimer This electronic medical record was generated, in whole or in part, using a voice recognition dictation system. Departure Departure Impression: Primary Impression: Diabetic ulcer of left foot Disposition: ADMITTED INPATIENT Admitting Physician: Radha Meyer Condition: STABLE Referrals: RADHA MEYER MD (PCP) Problem Qualifiers Primary Impression: Diabetic ulcer of left foot Diabetic foot ulcer location: toe Diabetes mellitus type: type 2 Non- pressure ulcer stage: unspecified non-pressure ulcer stage Qualified Codes: E11.621 - Type 2 diabetes mellitus with foot ulcer; L97.529 - Non-pressure chronic ulcer of other part of left foot with unspecified severity LUANNE HERNANDEZ MD Feb 23, 2017 17:11
[2017-02-23 18:24] LABS: BASO # 0.1 x10^3/uL (0.0-0.2); BASO % 0 % (0-3); EOS % 1 % (0-3); HEMATOCRIT 33.1 % (39.0-53.0); HEMOGLOBIN 10.5 g/dL (13.0-17.5); LYMPH # 0.7 x10^3/uL (1.0-4.8); LYMPH % 4 % (24-48); MEAN CORPUSCULAR HEMOGLOBIN 28 pg (25-35); MEAN CORPUSCULAR HGB CONC 32 g/dL (31-37); MEAN CORPUSCULAR VOLUME 89 fL (79-100); MONO % 5 % (0-9); NEUT % 90 % (31-73); PLATELET COUNT 425 x10^3/uL (140-400); RED BLOOD COUNT 3.72 x10^6/uL (4.30-5.70); RED CELL DISTRIBUTION WIDTH 17.6 % (11.5-14.5); WHITE BLOOD COUNT 15.1 x10^3/uL (4.0-11.0)
[2017-02-23 18:34] LABS: INR 3.5 (0.8-1.1); PROTHROMBIN TIME PATIENT 33.2 SEC (11.7-14.0)
[2017-02-23 18:44] LABS: CALCIUM 8.9 mg/dL (8.5-10.1); CREATININE 4.3 mg/dL (0.7-1.3); GFR 14.2; POTASSIUM 3.6 mmol/L (3.5-5.1)
[2017-02-23] MEDS ORDERED: PIP/TAZO PER PHARMACY MC PRN (18:45)
[2017-02-23] MEDS ORDERED: VANCOMYCIN 2 GM in IV NORMAL SALINE 500ML BAG 500 ML IV ONE (18:45)
[2017-02-23] MEDS ORDERED: PIPERACILLIN/TAZOBACTAM 3.375 GM in IV NORMAL SALINE 50ML 50 ML IV ONE (18:45)
[2017-02-23 18:49] LABS: ALBUMIN 3.3 g/dL (3.4-5.0); DIRECT BILIRUBIN 0.4 mg/dL (0.0-0.2); TOTAL BILIRUBIN 0.9 mg/dL (0.2-1.0); TOTAL PROTEIN 8.5 g/dL (6.4-8.2)
[2017-02-23] MEDS ORDERED: ONDANSETRON PF 4 MG/2 ML VIAL. IV PRN (19:15)
[2017-02-23 20:02] LABS: ANISOCYTOSIS SLIGHT; PLT ESTIMATE INCREASED (ADEQUATE); POIKILOCYTOSIS SLIGHT
[2017-02-23 20:13] VITALS: BP 111/36
[2017-02-23] MEDS: VANCOMYCIN PER PHARMACY MC PRN (20:57)
[2017-02-23] MEDS ORDERED: DIPHENOXYLATE/ATROPINE TABLET. PO PRN (21:30)
[2017-02-23] MEDS ORDERED: ACETAMINOPHEN 325 MG TABLET. PO PRN (21:30)
[2017-02-23] MEDS ORDERED: HYDROcodone/APAP 10/325 1 TAB TABLET PO PRN (21:30)
[2017-02-23] MEDS ORDERED: SENNOSIDES/DOCUSATE 8.6/50MG TABLET. PO PRN (21:30)
[2017-02-23] MEDS ORDERED: PIPERACILLIN/TAZOBACTAM 2.25 GM in IV NORMAL SALINE 50ML 50 ML IV SCH (22:00)
[2017-02-23 22:31] VITALS: BP 98/37
[2017-02-23 23:05] VITALS: BP 99/42
[2017-02-23 23:20] VITALS: BP 99/41
[2017-02-24] VITALS (15 sets, daily range): BP systolic 96–130; BP diastolic 28–78
[2017-02-24] MEDS: PIPERACILLIN/TAZOBACTAM 2.25 GM in IV NORMAL SALINE 50ML 50 ML IV SCH ×3 (06:17→21:22)
[2017-02-24] MEDS ORDERED: BUPIVACAINE 0.5% 50 ML VIAL. ONE (06:30)
--- NOTE | 2017-02-24 06:47 | EKG ---
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
[2017-02-24] MEDS ORDERED: PROPOFOL 20 ML IV ONE (07:17)
[2017-02-24] MEDS ORDERED: KETAMINE HCL 500 MG/10 ML VIAL. ONE (07:17)
[2017-02-24] MEDS: CALCIUM CARBONATE 500 MG TAB.CHEW PO SCH ×3 (07:30→17:42)
[2017-02-24] MEDS: METOCLOPRAMIDE 5 MG TABLET. PO SCH ×4 (07:30→21:22)
[2017-02-24] MEDS: PANTOPRAZOLE 40 MG TABLET.DR. PO SCH ×2 (07:30→17:42)
[2017-02-24] MEDS: INSULIN ASPART 300 UNITS/3 ML INSULN.PEN SQ SCH ×4 (08:00→17:45)
[2017-02-24] MEDS ORDERED: ALPRAZolam 1 MG TABLET PO SCH (09:00)
[2017-02-24] MEDS ORDERED: DEXTROSE 50% 25 GM / 50ML DISP.SYRIN. IV PRN (09:15)
--- NOTE | 2017-02-24 09:16 | RAD ---
Examination: 3 views of the left foot History: History of infected foot, diabetic ulcer. Comparison: 02/03/2017 Findings: Diffuse osseous demineralization limits evaluation. Amputation changes of the great toe are again identified. Moderate degenerative disease identified in the tarsometatarsal joints, metatarsophalangeal joints. Deformity of the second metacarpal likely old healed fracture again identified. There is chronic appearing deformity of the calcaneus. Moderate degenerative disease identified in the third and fourth metatarsophalangeal joints. There is mild soft tissue swelling identified at the amputation site. Impression: 1. Chronic changes described above. 2. No obvious plain film evidence of osteomyelitis however if osteomyelitis is a clinical concern MRI may be useful.
[2017-02-24] MEDS: FOLIC/VIT B COMP W-C (RENAL) TABLET. PO SCH (09:49)
[2017-02-24] MEDS: LISINOPRIL 10 MG TABLET PO SCH (09:50)
[2017-02-24] MEDS: PIOGLITAZONE 15 MG TABLET. PO SCH (09:50)
[2017-02-24] MEDS: CITALOPRAM 20 MG TABLET. PO SCH (09:50)
--- NOTE | 2017-02-24 10:22 | PDOC ---
Provider Note Provider Note Pt seen,H&P dictated. #[id number] RADHA MEYER MD Feb 24, 2017 10:22
[2017-02-24 11:18] LABS: BASO # 0.1 x10^3/uL (0.0-0.2); BASO % 1 % (0-3); EOS % 1 % (0-3); HEMATOCRIT 28.7 % (39.0-53.0); HEMOGLOBIN 9.4 g/dL (13.0-17.5); LYMPH # 0.9 x10^3/uL (1.0-4.8); LYMPH % 9 % (24-48); MEAN CORPUSCULAR HEMOGLOBIN 29 pg (25-35); MEAN CORPUSCULAR HGB CONC 33 g/dL (31-37); MEAN CORPUSCULAR VOLUME 89 fL (79-100); MONO % 8 % (0-9); NEUT % 81 % (31-73); PLATELET COUNT 373 x10^3/uL (140-400); RED BLOOD COUNT 3.22 x10^6/uL (4.30-5.70); RED CELL DISTRIBUTION WIDTH 17.4 % (11.5-14.5)
[2017-02-24 11:27] LABS: INR 3.4 (0.8-1.1); PROTHROMBIN TIME PATIENT 32.1 SEC (11.7-14.0)
[2017-02-24 11:38] LABS: CALCIUM 8.8 mg/dL (8.5-10.1); CREATININE 5.5 mg/dL (0.7-1.3); GFR 10.7; POTASSIUM 4.1 mmol/L (3.5-5.1)
--- NOTE | 2017-02-24 12:46 | PDOC2 ---
CONSULT Date of Consult Date of Consult DATE: 02/24/17 TIME: 12:43 Reason for Consult Reason for Consult: ESRD Referring Physician Referring Physician: MITCH Identification/Chief Complaint Chief Complaint LEFT FOOT WOUND Problems: Source Source: Chart review, Patient History of Present Illness Reason for Visit: THIS IS A 61 YR OLD WITH A LEFT FOOT DIABETIC ULCER. HX OF SIGNIFICANT LE WOUNDS NEEDING AMPUTATIONS. HE HAS ESRD AND IS ON OP HD ON TTS. LAST HD WAS YESTERDAY. LABS ARE C/W ESRD. PAIN CONTROL IS ADEQUATE Past Medical History Cardiovascular: AFIB, CAD, CHF, HTN, Hyperlipidemia, Valve insufficiency, Pulmonary hypertension Pulmonary: Pulmonary embolus, Other GI: Constipation, Gastritis, Other Heme/Onc: Anemia NOS Renal/: Chronic renal failure Endocrine: Diabetes, Hyperparathyroidism Past Surgical History Past Surgical History: Tonsillectomy, Other Family History Family History: No Significant Social History ALCOHOL: none Drugs: None Lives: with Family Current Problem List Problem List Problems Medical Problems: (1) Diabetic ulcer of left foot Status: Acute Current Medications Current Medications Current Medications Lorazepam (Ativan) 0.5 mg 1X ONCE IV Last administered on 02/23/17 18:23; Start 02/23/17 at 18:15; Stop 02/23/17 at 18:16; Status DC Vancomycin HCl (Vanco Per Pharmacy) 1 each PRN DAILY PRN MC SEE COMMENTS Last administered on 02/23/17 20:57; Start 02/23/17 at 18:45 Piperacillin Sod/ Tazobactam Sod (Zosyn Per Pharmacy) 1 each PRN DAILY PRN MC SEE COMMENTS; Start 02/23/17 at 18:45 Vancomycin HCl 2 gm/Sodium Chloride 500 ml @ 250 mls/hr 1X ONCE IV Last administered on 02/23/17 20:35; Start 02/23/17 at 18:45; Stop 02/23/17 at 20:44 ; Status DC Piperacillin Sod/ Tazobactam Sod 3.375 gm/Sodium Chloride 50 ml @ 100 mls/hr 1X ONCE IV Last administered on 02/23/17 19:26; Start 02/23/17 at 18:45; Stop 02/23/17 at 19:14; Status DC Ondansetron HCl (Zofran) 4 mg PRN Q8HRS PRN IV NAUSEA/VOMITING; Start 02/23/17 at 19:15; Stop 02/24/17 at 19:14 Vancomycin HCl 1 each 1X ONCE MC ; Start 02/25/17 at 06:00; Stop 02/25/17 at 06 :01 Piperacillin Sod/ Tazobactam Sod 2.25 gm/Sodium Chloride 50 ml @ 100 mls/hr Q8HRS IV ; Start 02/23/17 at 22:00; Stop 02/23/17 at 22:00; Status DC Piperacillin Sod/ Tazobactam Sod 2.25 gm/Sodium Chloride 50 ml @ 100 mls/hr Q8HRS IV Last administered on 02/24/17 06:17; Start 02/24/17 at 06:00 Acetaminophen (Tylenol) 650 mg PRN Q6HRS PRN PO MILD PAIN / TEMP; Start at 21:30 Alprazolam (Xanax) 1 mg QID PO Last administered on 02/24/17 09:49; Start at 09:00; Stop 02/24/17 at 10:06; Status DC Atorvastatin Calcium (Lipitor) 40 mg HS PO ; Start 02/24/17 at 21:00 Diphenoxylate HCl/ Atropine (Lomotil) 1 tab PRN QID PRN PO CONSTIPATION; Start 02/23/17 at 21:30 Vitamin B Complex/ Vitamin C (Sapphire-Sara) 1 tab DAILY PO Last administered on 09:49; Start 02/24/17 at 09:00 Acetaminophen/ Hydrocodone Bitart (Lortab 10/325) 1 tab PRN Q6HRS PRN PO PAIN; Start 02/23/17 at 21:30 Insulin Aspart (NovoLOG) TIDWMEALS SQ ; Start 02/24/17 at 08:00 Metoclopramide HCl (Reglan) 5 mg QIDACHS PO Last administered on 02/24/17 12: 12; Start 02/24/17 at 07:30 Pantoprazole Sodium (Protonix) 40 mg BIDAC PO ; Start 02/24/17 at 07:30 Senna/Docusate Sodium (Senna Plus) 2 tab PRN DAILY PRN PO CONSTIPATION 1ST CHOICE; Start 02/23/17 at 21:30 Calcium Carbonate/ Glycine (Tums) 250 mg TIDAC PO Last administered on 12:13; Start 02/24/17 at 07:30 Citalopram Hydrobromide (CeleXA) 80 mg DAILY PO Last administered on 02/24/17 09:50; Start 02/24/17 at 09:00 Pioglitazone HCl (Actos) 45 mg DAILY PO Last administered on 02/24/17 09:50; Start 02/24/17 at 09:00 Lisinopril (Prinivil) 10 mg DAILY PO Last administered on 02/24/17 09:50; Start 02/24/17 at 09:00 Trazodone HCl (Desyrel) 50 mg QHS PO ; Start 02/24/17 at 21:00 Propofol 20 ml @ As Directed STK-MED ONCE IV ; Start 02/24/17 at 07:17; Stop at 07:18; Status DC Ketamine HCl 500 mg STK-MED ONCE .ROUTE ; Start 02/24/17 at 07:17; Stop at 07:18; Status DC Bupivacaine HCl (Marcaine 0.5%) 50 ml STK-MED ONCE .ROUTE Last administered on 02/24/17 07:47; Start 02/24/17 at 06:30; Stop 02/24/17 at 07:31; Status DC Alprazolam (Xanax) 1 mg TID PO ; Start 02/24/17 at 14:00 Insulin Aspart (NovoLOG) 0-7 UNITS TIDWMEALS SQ ; Start 02/24/17 at 12:00 Dextrose (Dextrose 50%-Water Syringe) 12.5 gm PRN Q15MIN PRN IV SEE COMMENTS; Start 02/24/17 at 09:15 Active Scripts Active Hydrocodone-Apap 10-325 (Hydrocodone Bit/Acetaminophen) 1 Each Tablet 1 Tab PO PRN Q6HRS PRN 30 Days Alprazolam 1 Mg Tablet 1 Mg PO QID 30 Days Pantoprazole Sodium 40 Mg Tablet.dr 40 Mg PO BIDAC 30 Days Senna-Time S Tablet (Sennosides/Docusate Sodium) 1 Each Tablet 2 Tab PO PRN DAILY PRN Novolog Flexpen (Insulin Aspart) 300 Units/3 Ml Insuln.pen 0 Units SQ TIDWMEALS Reported Sapphire-Sara Tablet (Folic Acid/Vitamin B Comp W-C) 0.8 Mg Tablet 0.8 Mg PO Alprazolam 1 Mg Tablet 1 Tab PO TID Warfarin Sodium 2 Mg Tablet 1 Tab PO DAILY Actos (Pioglitazone Hcl) 45 Mg Tablet 1 Tab PO DAILY Reglan (Metoclopramide Hcl) 10 Mg Tablet 10 Mg PO QIDACHS Lomotil Tablet (Diphenoxylate Hcl/Atropine) 1 Each Tablet 1 Tab PO QID PRN Ramipril 10 Mg Capsule 5 Mg PO DAILY Tums (Calcium Carbonate) 300 Mg Tab.chew 300 Mg PO TIDAC Warfarin Sodium 4 Mg Tablet 5 Mg PO DAILY Escitalopram Oxalate 10 Mg Tablet 40 Tab PO DAILY Atorvastatin Calcium 20 Mg Tablet 40 Mg PO DAILY Allergies Allergies: Coded Allergies: I S O L A T I O N *CONTACT* (Verified Allergy, Unknown, 02/24/17) mrsa + No Known Medication Allergies (Verified Allergy, Unknown, 02/24/17) ROS General: YES: Fatigue PSYCHOLOGICAL ROS: YES: Anxiety, Depression Eyes: Yes Decreased vision HEENT: YES: Heacaches Respiratory: YES: Cough Cardiovascular: yes Orthopnea Gastrointestinal: Yes Constipation Genitourinary: YES Other (ANURIA) Musculoskeletal: Yes Joint Pain Neurological: Yes Weakness Physical Exam General: Alert, Oriented X3, Cooperative, No acute distress HEENT: Atraumatic Lungs: Clear to auscultation Heart: Regular rate Abdomen: Normal bowel sounds, Soft, No tenderness Extremities: No clubbing, No cyanosis, Other (LEFT FOOT WOUND-? BONE EXPOSED) MUSCULOSKELETAL: Other (LE AMP) Vitals VITALS Vital Signs Date Time Temp Pulse Resp B/P (MAP) Pulse Ox O2 Delivery O2 Flow Rate FiO2 02/24/17 11:10 54 100/30 (53) 96 Room Air 02/24/17 09:55 20 02/24/17 09:40 97.7 97.7 02/24/17 09:10 3 Labs Labs Laboratory Tests Test 02/23/17 18:05 02/23/17 20:35 02/24/17 07:01 02/24/17 08:25 White Blood Count 15.1 x10^3/uL (4.0-11.0) Red Blood Count 3.72 x10^6/uL (4.30-5.70) Hemoglobin 10.5 g/dL (13.0-17.5) Hematocrit 33.1 % (39.0-53.0) Mean Corpuscular Volume 89 fL (79-100) Mean Corpuscular Hemoglobin 28 pg (25-35) Mean Corpuscular Hemoglobin Concent 32 g/dL (31-37) Red Cell Distribution Width 17.6 % (11.5-14.5) Platelet Count 425 x10^3/uL (140-400) Neutrophils (%) (Auto) 90 % (31-73) Lymphocytes (%) (Auto) 4 % (24-48) Monocytes (%) (Auto) 5 % (0-9) Eosinophils (%) (Auto) 1 % (0-3) Basophils (%) (Auto) 0 % (0-3) Neutrophils # (Auto) 13.6 x10^3uL (1.8-7.7) Lymphocytes # (Auto) 0.7 x10^3/uL (1.0-4.8) Monocytes # (Auto) 0.7 x10^3/uL (0.0-1.1) Eosinophils # (Auto) 0.1 x10^3/uL (0.0-0.7) Basophils # (Auto) 0.1 x10^3/uL (0.0-0.2) Segmented Neutrophils % 85 % (35-66) Band Neutrophils % 4 % (0-9) Lymphocytes % 7 % (24-48) Monocytes % 4 % (0-10) Platelet Estimate Increased (ADEQUATE) Poikilocytosis Slight Anisocytosis Slight Prothrombin Time 33.2 SEC (11.7-14.0) Prothromb Time International Ratio 3.5 (0.8-1.1) Activated Partial Thromboplast Time 55 SEC (24-38) Sodium Level 135 mmol/L (136-145) Potassium Level 3.6 mmol/L (3.5-5.1) Chloride Level 92 mmol/L (98-107) Carbon Dioxide Level 29 mmol/L (21-32) Anion Gap 14 (6-14) Blood Urea Nitrogen 35 mg/dL (8-26) Creatinine 4.3 mg/dL (0.7-1.3) Estimated GFR (Cockcroft-Gault) 14.2 Glucose Level 137 mg/dL (70-99) Lactic Acid Level 1.3 mmol/L (0.4-2.0) Calcium Level 8.9 mg/dL (8.5-10.1) Total Bilirubin 0.9 mg/dL (0.2-1.0) Direct Bilirubin 0.4 mg/dL (0.0-0.2) Aspartate Amino Transf (AST/SGOT) 33 U/L (15-37) Alanine Aminotransferase (ALT/SGPT) 42 U/L (16-63) Alkaline Phosphatase 284 U/L (46-116) Total Protein 8.5 g/dL (6.4-8.2) Albumin 3.3 g/dL (3.4-5.0) Glucose (Fingerstick) 166 mg/dL (70-99) 133 mg/dL (70-99) 139 mg/dL (70-99) Test 02/24/17 10:50 02/24/17 11:42 White Blood Count 10.0 x10^3/uL (4.0-11.0) Red Blood Count 3.22 x10^6/uL (4.30-5.70) Hemoglobin 9.4 g/dL (13.0-17.5) Hematocrit 28.7 % (39.0-53.0) Mean Corpuscular Volume 89 fL (79-100) Mean Corpuscular Hemoglobin 29 pg (25-35) Mean Corpuscular Hemoglobin Concent 33 g/dL (31-37) Red Cell Distribution Width 17.4 % (11.5-14.5) Platelet Count 373 x10^3/uL (140-400) Neutrophils (%) (Auto) 81 % (31-73) Lymphocytes (%) (Auto) 9 % (24-48) Monocytes (%) (Auto) 8 % (0-9) Eosinophils (%) (Auto) 1 % (0-3) Basophils (%) (Auto) 1 % (0-3) Neutrophils # (Auto) 8.1 x10^3uL (1.8-7.7) Lymphocytes # (Auto) 0.9 x10^3/uL (1.0-4.8) Monocytes # (Auto) 0.8 x10^3/uL (0.0-1.1) Eosinophils # (Auto) 0.1 x10^3/uL (0.0-0.7) Basophils # (Auto) 0.1 x10^3/uL (0.0-0.2) Prothrombin Time 32.1 SEC (11.7-14.0) Prothromb Time International Ratio 3.4 (0.8-1.1) Sodium Level 135 mmol/L (136-145) Potassium Level 4.1 mmol/L (3.5-5.1) Chloride Level 95 mmol/L (98-107) Carbon Dioxide Level 28 mmol/L (21-32) Anion Gap 12 (6-14) Blood Urea Nitrogen 48 mg/dL (8-26) Creatinine 5.5 mg/dL (0.7-1.3) Estimated GFR (Cockcroft-Gault) 10.7 Glucose Level 139 mg/dL (70-99) Calcium Level 8.8 mg/dL (8.5-10.1) Glucose (Fingerstick) 134 mg/dL (70-99) Laboratory Tests Test 02/23/17 18:05 02/23/17 20:35 02/24/17 07:01 02/24/17 08:25 White Blood Count 15.1 x10^3/uL (4.0-11.0) Red Blood Count 3.72 x10^6/uL (4.30-5.70) Hemoglobin 10.5 g/dL (13.0-17.5) Hematocrit 33.1 % (39.0-53.0) Mean Corpuscular Volume 89 fL (79-100) Mean Corpuscular Hemoglobin 28 pg (25-35) Mean Corpuscular Hemoglobin Concent 32 g/dL (31-37) Red Cell Distribution Width 17.6 % (11.5-14.5) Platelet Count 425 x10^3/uL (140-400) Neutrophils (%) (Auto) 90 % (31-73) Lymphocytes (%) (Auto) 4 % (24-48) Monocytes (%) (Auto) 5 % (0-9) Eosinophils (%) (Auto) 1 % (0-3) Basophils (%) (Auto) 0 % (0-3) Neutrophils # (Auto) 13.6 x10^3uL (1.8-7.7) Lymphocytes # (Auto) 0.7 x10^3/uL (1.0-4.8) Monocytes # (Auto) 0.7 x10^3/uL (0.0-1.1) Eosinophils # (Auto) 0.1 x10^3/uL (0.0-0.7) Basophils # (Auto) 0.1 x10^3/uL (0.0-0.2) Segmented Neutrophils % 85 % (35-66) Band Neutrophils % 4 % (0-9) Lymphocytes % 7 % (24-48) Monocytes % 4 % (0-10) Platelet Estimate Increased (ADEQUATE) Poikilocytosis Slight Anisocytosis Slight Prothrombin Time 33.2 SEC (11.7-14.0) Prothromb Time International Ratio 3.5 (0.8-1.1) Activated Partial Thromboplast Time 55 SEC (24-38) Sodium Level 135 mmol/L (136-145) Potassium Level 3.6 mmol/L (3.5-5.1) Chloride Level 92 mmol/L (98-107) Carbon Dioxide Level 29 mmol/L (21-32) Anion Gap 14 (6-14) Blood Urea Nitrogen 35 mg/dL (8-26) Creatinine 4.3 mg/dL (0.7-1.3) Estimated GFR (Cockcroft-Gault) 14.2 Glucose Level 137 mg/dL (70-99) Lactic Acid Level 1.3 mmol/L (0.4-2.0) Calcium Level 8.9 mg/dL (8.5-10.1) Total Bilirubin 0.9 mg/dL (0.2-1.0) Direct Bilirubin 0.4 mg/dL (0.0-0.2) Aspartate Amino Transf (AST/SGOT) 33 U/L (15-37) Alanine Aminotransferase (ALT/SGPT) 42 U/L (16-63) Alkaline Phosphatase 284 U/L (46-116) Total Protein 8.5 g/dL (6.4-8.2) Albumin 3.3 g/dL (3.4-5.0) Glucose (Fingerstick) 166 mg/dL (70-99) 133 mg/dL (70-99) 139 mg/dL (70-99) Test 02/24/17 10:50 02/24/17 11:42 White Blood Count 10.0 x10^3/uL (4.0-11.0) Red Blood Count 3.22 x10^6/uL (4.30-5.70) Hemoglobin 9.4 g/dL (13.0-17.5) Hematocrit 28.7 % (39.0-53.0) Mean Corpuscular Volume 89 fL (79-100) Mean Corpuscular Hemoglobin 29 pg (25-35) Mean Corpuscular Hemoglobin Concent 33 g/dL (31-37) Red Cell Distribution Width 17.4 % (11.5-14.5) Platelet Count 373 x10^3/uL (140-400) Neutrophils (%) (Auto) 81 % (31-73) Lymphocytes (%) (Auto) 9 % (24-48) Monocytes (%) (Auto) 8 % (0-9) Eosinophils (%) (Auto) 1 % (0-3) Basophils (%) (Auto) 1 % (0-3) Neutrophils # (Auto) 8.1 x10^3uL (1.8-7.7) Lymphocytes # (Auto) 0.9 x10^3/uL (1.0-4.8) Monocytes # (Auto) 0.8 x10^3/uL (0.0-1.1) Eosinophils # (Auto) 0.1 x10^3/uL (0.0-0.7) Basophils # (Auto) 0.1 x10^3/uL (0.0-0.2) Prothrombin Time 32.1 SEC (11.7-14.0) Prothromb Time International Ratio 3.4 (0.8-1.1) Sodium Level 135 mmol/L (136-145) Potassium Level 4.1 mmol/L (3.5-5.1) Chloride Level 95 mmol/L (98-107) Carbon Dioxide Level 28 mmol/L (21-32) Anion Gap 12 (6-14) Blood Urea Nitrogen 48 mg/dL (8-26) Creatinine 5.5 mg/dL (0.7-1.3) Estimated GFR (Cockcroft-Gault) 10.7 Glucose Level 139 mg/dL (70-99) Calcium Level 8.8 mg/dL (8.5-10.1) Glucose (Fingerstick) 134 mg/dL (70-99) Assessment/Plan Assessment/Plan IMP ESRD ANEMIA DM II HTN LEFT FOOT DM RELATED ULCER PLAN START [facility] DONNY LUEVANO MD Feb 24, 2017 12:46
[2017-02-24] MEDS: ALPRAZolam 1 MG TABLET PO SCH ×2 (13:27→21:22)
--- NOTE | 2017-02-24 13:50 | HP ---
ADMIT DATE: 02/23/2017 REASON FOR ADMISSION TO THE HOSPITAL: Left second toe osteomyelitis with cellulitis of the leg, diabetes, end-stage renal disease, on dialysis. HISTORY OF PRESENT ILLNESS: The patient is a 61-year-old male patient, known to me, has history of diabetes, end-stage renal disease on hemodialysis for at least 2 years now. He has foot ulcer, [facility], lately his second toe was getting worse with ulceration, redness and redness extending to the leg. He came to the Emergency Room and was admitted for IV antibiotics, surgical consult was done. Orthopedic took him to surgery this morning, had amputation of the left second toe, had a previous amputation of the left big toe. PAST MEDICAL HISTORY: The patient has a history of diabetes, had amputation of the right leg, has a prosthesis now. He also had a broken left hip, end-stage renal disease on hemodialysis. He also has atrial fibrillation on Coumadin, diabetes, hypertension, hyperlipidemia. PAST SURGICAL HISTORY: He had a right [id number] amputation, left big toe amputation, AV shunt, had a cardiac catheterization in the past and a left hip fracture surgery. ALLERGIES: No known drug allergies. MEDICATIONS: The patient is on Coumadin 5-7 mg for anticoagulation, Xanax 1 mg 4 times daily, atorvastatin 40 mg daily, calcium 3 times a day, Lomotil for diarrhea, Lexapro 40 mg daily, hydrocodone for pain, insulin sliding scale, Reglan 10 mg 3 times daily, Protonix 40 mg daily, Actos 45 mg daily, Altace 10 mg daily, senna 1 daily. PERSONAL HISTORY: No history of smoking, alcohol or drug abuse. FAMILY HISTORY: Positive for diabetes, heart disease. REVIEW OF SYSTEMS: CARDIAC: No chest pain. GASTROINTESTINAL: No nausea or vomiting. Rest of the 14 systems reviewed. SOCIAL HISTORY: No smoking or drinking. He is on motorized wheelchair because of mobility, and dialysis on Wednesday, , Wednesday. PHYSICAL EXAMINATION: VITAL SIGNS: At the time of admission shows temperature 101, pulse 62, respirations 18, blood pressure 113/36, 95% on room air. HEENT: Head is atraumatic. Pupils equal. Oral cavity: No congestion. NECK: Supple. Thyroid not enlarged. JVD not elevated. CHEST: Symmetrical. CARDIOVASCULAR: S1, S2. LUNGS: Clear to auscultation. ABDOMEN: Soft. No mass palpable. EXTERNAL GENITALIA: No Jeong. RECTAL: Deferred. EXTREMITIES: Right below the knee stump looks good. Left foot had a dressing, just came from the operating room, had a surgery, amputation of second toe, dressing present, and has AV shunt in the left arm. LABORATORY DATA: Shows a white count 15, came down to 10 today, hemoglobin 10, platelets 425. Electrolytes show sodium 135, potassium 3.6, chloride 92, bicarbonate 14, BUN 35, creatinine 4.3. Lactic acid 1.3. LFTs were normal. INR is 3.5. Foot x-ray shows no obvious osteomyelitis. FINAL IMPRESSION: 1. Left second toe with cellulitis, ulceration, osteomyelitis. The patient was taken to surgery, had amputation done. 2. Chronic anticoagulation, Coumadin, for atrial fibrillation. 3. Chronic systolic heart failure, ejection fraction is 30%. 4. Diabetes, insulin dependent. 5. End-stage renal disease, on hemodialysis. 6. History of [id number] amputation. PLAN: At this time, admit to hospital, intravenous antibiotics and the patient was taken to surgery, had amputation done. PT/OT, was given fresh frozen plasma to correct the INR. Resume Coumadin and see how the patient's condition improves. RADHA MEYER MD DR: TODD/makenna JOB#: [id number] / [id number]
[2017-02-24] MEDS: VANCOMYCIN PER PHARMACY MC PRN (14:10)
--- NOTE | 2017-02-24 18:04 | PDOC4 ---
Operative Note Operative Note Date of surgery: 02/24/2017 Preoperative diagnosis: Osteomyelitis left second toe Postoperative diagnosis: Same Procedure: Left second toe amputation Surgeon: Josi Anesthesia: Local plus deep sedation Estimated blood loss 25 mL Complications none Specimen discarded Operative indications: Patient was seen previously in the office with osteomyelitis of his left second toe and surgery actually planned for next week but he was sent in early from the wound clinic with cellulitis and increase of his wound infection symptoms and admitted following his dialysis yesterday. I previously gone over with him the risks benefits postoperative course of toe amputation and the rationale due to his infection possibility of additional procedures if infection is not completely eradicated and his risk for medical surgical complications especially with this heart history. All his questions were answered he wants to proceed with surgical evaluation and treatment. Informed consent was obtained. Operative text: Patient was identified procedure verified. Patient was placed in the supine position on the operating table in the left lower extremity was prepped and draped in standard sterile fashion. After adequate amounts of sedation were provided by anesthesia a local digital block was obtained with half percent plain Marcaine and a fishmouth incision was made at the base of the toe phalanges were sharply removed and found to be soft osteomyelitic bone that was removed in its entirety. Flexor tendon was trimmed back to and allowed to retract and tissue was debrided back to healthy tissue bleeding points controlled by electrocautery skin edges were trimmed thorough irrigation again carried out normal saline solution and closure was accomplished with 3-0 nylon suture sterile dressings were applied patient was returned to recovery room in stable condition having tolerated procedure well APURVA SEVILLA MD Feb 24, 2017 18:04
--- NOTE | 2017-02-24 18:35 | CONS ---
DATE OF CONSULTATION: 02/23/2017 REQUESTING PHYSICIAN: [facility] and Dr. Araujo. REASON FOR CONSULTATION: Left second toe infection with osteomyelitis. HISTORY OF PRESENT ILLNESS: The patient is a 61-year-old male that was seen last week in clinic due to some exposed bone on his left second toe and planned for elective left second toe amputation, pending some medical examination and logistics arrangement who was actually in the wound care clinic today and noted to have worsening infection of his left second toe and was sent to the Emergency Department following his dialysis and I was notified of his admission due to the worsening of the toe. The left second toe problem has been going on for a few weeks. He indicates that he has had decreased appetite recently and overall feeling poorly, has had some chills. He is unaware of any fever. PAST MEDICAL HISTORY: Significant for congestive heart failure, type 2 diabetes, atrial fibrillation, hypertension, renal failure. PAST SURGICAL HISTORY: Right below knee amputation, left great toe amputation, left arm shunt for dialysis and a PEG tube placement. MEDICATIONS: List is reviewed. ALLERGIES: INCLUDE NO KNOWN DRUG ALLERGIES. REVIEW OF SYSTEMS: Some chills, overall lethargy and some redness and warmth of his left lower extremity. Denies any headache, focal weakness, sensory changes, chest pain, shortness of breath. PHYSICAL EXAMINATION: GENERAL: This is a pleasant, cooperative 61-year-old male, alert and oriented, no acute distress. VITAL SIGNS: Blood pressure 128/58, 98% saturation on room air, pulse 63, respirations 20, temperature 98.4. EXTREMITIES: Examination of the left second toe shows obvious bone exposed, some granulation tissue around the area, but overall poor blood supply and some cellulitis to the lower extremity, well-healed incision site from a previous great toe amputation. He has an intact below knee amputation on the right. Good hip and knee alignment, stability bilaterally. IMAGING: No imaging studies obtained today, but previous imaging showed osteomyelitis of his left second toe. LABORATORY EXAMINATION: Shows a white count of 15.1. IMPRESSION: Left second toe osteomyelitis and left lower extremity cellulitis. TREATMENT PLAN: I had gone over with him the previous plans for amputation of his toe, pending some medical evaluation and some antibiotics for cellulitis. He agrees to proceed and surgery will proceed for a left second toe amputation as soon as medically cleared and reasonably stable. APURVA SEVILLA MD DR: SENG/makenna JOB#: [id number] / [id number]
--- NOTE | 2017-02-24 20:37 | PDOC2 ---
CONSULT Date of Consult Date of Consult DATE: 02/24/17 TIME: 20:34 Reason for Consult Reason for Consult: Heart disease Referring Physician Referring Physician: Dr Araujo Identification/Chief Complaint Chief Complaint Toe amputation Problems: History of Present Illness Reason for Visit: This patient is a 61-year-old gentleman that has a known history of heart disease and valvular heart disease with aortic insufficiency. He's had previous episodes of CHF. He has been doing rather well with medical treatment to control the heart failure. He is an amputee and had his right leg amputated in the past. The patient now comes in for amputation of a toe. He has been treated as an outpatient but the situation with the toe continues to worsen therefore was decided to bring him in for further surgery. At the time that I saw him the patient denies any cardiac issues. Past Medical History Cardiovascular: AFIB, CAD, CHF, HTN, Hyperlipidemia, Valve insufficiency, Pulmonary hypertension Pulmonary: Pulmonary embolus, Other GI: Constipation, Gastritis, Other Heme/Onc: Anemia NOS Renal/: Chronic renal failure Endocrine: Diabetes, Hyperparathyroidism Past Surgical History Past Surgical History: Tonsillectomy, Other Family History Family History: No Significant Social History ALCOHOL: none Drugs: None Lives: with Family Current Problem List Problem List Problems Medical Problems: (1) Diabetic ulcer of left foot Status: Acute Current Medications Current Medications Current Medications Lorazepam (Ativan) 0.5 mg 1X ONCE IV Last administered on 02/23/17 18:23; Start 02/23/17 at 18:15; Stop 02/23/17 at 18:16; Status DC Vancomycin HCl (Vanco Per Pharmacy) 1 each PRN DAILY PRN MC SEE COMMENTS Last administered on 02/24/17 14:10; Start 02/23/17 at 18:45 Piperacillin Sod/ Tazobactam Sod (Zosyn Per Pharmacy) 1 each PRN DAILY PRN MC SEE COMMENTS; Start 02/23/17 at 18:45 Vancomycin HCl 2 gm/Sodium Chloride 500 ml @ 250 mls/hr 1X ONCE IV Last administered on 02/23/17 20:35; Start 02/23/17 at 18:45; Stop 02/23/17 at 20:44 ; Status DC Piperacillin Sod/ Tazobactam Sod 3.375 gm/Sodium Chloride 50 ml @ 100 mls/hr 1X ONCE IV Last administered on 02/23/17 19:26; Start 02/23/17 at 18:45; Stop 02/23/17 at 19:14; Status DC Ondansetron HCl (Zofran) 4 mg PRN Q8HRS PRN IV NAUSEA/VOMITING; Start 02/23/17 at 19:15; Stop 02/24/17 at 19:14; Status DC Vancomycin HCl 1 each 1X ONCE MC ; Start 02/25/17 at 06:00; Stop 02/25/17 at 06 :01 Piperacillin Sod/ Tazobactam Sod 2.25 gm/Sodium Chloride 50 ml @ 100 mls/hr Q8HRS IV ; Start 02/23/17 at 22:00; Stop 02/23/17 at 22:00; Status DC Piperacillin Sod/ Tazobactam Sod 2.25 gm/Sodium Chloride 50 ml @ 100 mls/hr Q8HRS IV Last administered on 02/24/17 13:23; Start 02/24/17 at 06:00 Acetaminophen (Tylenol) 650 mg PRN Q6HRS PRN PO MILD PAIN / TEMP; Start at 21:30 Alprazolam (Xanax) 1 mg QID PO Last administered on 02/24/17 09:49; Start at 09:00; Stop 02/24/17 at 10:06; Status DC Atorvastatin Calcium (Lipitor) 40 mg HS PO ; Start 02/24/17 at 21:00 Diphenoxylate HCl/ Atropine (Lomotil) 1 tab PRN QID PRN PO CONSTIPATION; Start 02/23/17 at 21:30 Vitamin B Complex/ Vitamin C (Sapphire-Sara) 1 tab DAILY PO Last administered on 09:49; Start 02/24/17 at 09:00 Acetaminophen/ Hydrocodone Bitart (Lortab 10/325) 1 tab PRN Q6HRS PRN PO PAIN; Start 02/23/17 at 21:30 Insulin Aspart (NovoLOG) TIDWMEALS SQ ; Start 02/24/17 at 08:00; Stop 02/24/17 at 14:07; Status DC Metoclopramide HCl (Reglan) 5 mg QIDACHS PO Last administered on 02/24/17 17: 42; Start 02/24/17 at 07:30 Pantoprazole Sodium (Protonix) 40 mg BIDAC PO Last administered on 02/24/17 17 :42; Start 02/24/17 at 07:30 Senna/Docusate Sodium (Senna Plus) 2 tab PRN DAILY PRN PO CONSTIPATION 1ST CHOICE; Start 02/23/17 at 21:30 Calcium Carbonate/ Glycine (Tums) 250 mg TIDAC PO Last administered on 17:42; Start 02/24/17 at 07:30 Citalopram Hydrobromide (CeleXA) 80 mg DAILY PO Last administered on 02/24/17 09:50; Start 02/24/17 at 09:00 Pioglitazone HCl (Actos) 45 mg DAILY PO Last administered on 02/24/17 09:50; Start 02/24/17 at 09:00 Lisinopril (Prinivil) 10 mg DAILY PO Last administered on 02/24/17 09:50; Start 02/24/17 at 09:00 Trazodone HCl (Desyrel) 50 mg QHS PO ; Start 02/24/17 at 21:00 Propofol 20 ml @ As Directed STK-MED ONCE IV ; Start 02/24/17 at 07:17; Stop at 07:18; Status DC Ketamine HCl 500 mg STK-MED ONCE .ROUTE ; Start 02/24/17 at 07:17; Stop at 07:18; Status DC Bupivacaine HCl (Marcaine 0.5%) 50 ml STK-MED ONCE .ROUTE Last administered on 02/24/17 07:47; Start 02/24/17 at 06:30; Stop 02/24/17 at 07:31; Status DC Alprazolam (Xanax) 1 mg TID PO Last administered on 02/24/17 13:27; Start at 14:00 Insulin Aspart (NovoLOG) 0-7 UNITS TIDWMEALS SQ Last administered on 02/24/17 17:45; Start 02/24/17 at 12:00 Dextrose (Dextrose 50%-Water Syringe) 12.5 gm PRN Q15MIN PRN IV SEE COMMENTS; Start 02/24/17 at 09:15 Darbepoetin Noel (Aranesp) 60 mcg We SQ ; Start 02/24/17 at 21:00 Active Scripts Active Hydrocodone-Apap 10-325 (Hydrocodone Bit/Acetaminophen) 1 Each Tablet 1 Tab PO PRN Q6HRS PRN 30 Days Alprazolam 1 Mg Tablet 1 Mg PO QID 30 Days Pantoprazole Sodium 40 Mg Tablet.dr 40 Mg PO BIDAC 30 Days Senna-Time S Tablet (Sennosides/Docusate Sodium) 1 Each Tablet 2 Tab PO PRN DAILY PRN Novolog Flexpen (Insulin Aspart) 300 Units/3 Ml Insuln.pen 0 Units SQ TIDWMEALS Reported Sapphire-Sara Tablet (Folic Acid/Vitamin B Comp W-C) 0.8 Mg Tablet 0.8 Mg PO Alprazolam 1 Mg Tablet 1 Tab PO TID Warfarin Sodium 2 Mg Tablet 1 Tab PO DAILY Actos (Pioglitazone Hcl) 45 Mg Tablet 1 Tab PO DAILY Reglan (Metoclopramide Hcl) 10 Mg Tablet 10 Mg PO QIDACHS Lomotil Tablet (Diphenoxylate Hcl/Atropine) 1 Each Tablet 1 Tab PO QID PRN Ramipril 10 Mg Capsule 5 Mg PO DAILY Tums (Calcium Carbonate) 300 Mg Tab.chew 300 Mg PO TIDAC Warfarin Sodium 4 Mg Tablet 5 Mg PO DAILY Escitalopram Oxalate 10 Mg Tablet 40 Tab PO DAILY Atorvastatin Calcium 20 Mg Tablet 40 Mg PO DAILY Allergies Allergies: Coded Allergies: I S O L A T I O N *CONTACT* (Verified Allergy, Unknown, 02/24/17) mrsa + No Known Medication Allergies (Verified Allergy, Unknown, 02/24/17) Physical Exam General: Alert, Oriented X3, Cooperative HEENT: PERRLA Lungs: Clear to auscultation Heart: Other (irregularly irregular, S1, S2 no changes in murmur.) Extremities: Other (right leg amputation. Large dressing over the left foot) Vitals VITALS Vital Signs Date Time Temp Pulse Resp B/P (MAP) Pulse Ox O2 Delivery O2 Flow Rate FiO2 02/24/17 16:30 98.2 47 20 108/53 (71) 97 Room Air 98.2 02/24/17 09:10 3 Labs Labs Laboratory Tests Test 02/23/17 18:05 02/23/17 20:35 02/23/17 23:58 02/24/17 07:01 White Blood Count 15.1 x10^3/uL (4.0-11.0) Red Blood Count 3.72 x10^6/uL (4.30-5.70) Hemoglobin 10.5 g/dL (13.0-17.5) Hematocrit 33.1 % (39.0-53.0) Mean Corpuscular Volume 89 fL (79-100) Mean Corpuscular Hemoglobin 28 pg (25-35) Mean Corpuscular Hemoglobin Concent 32 g/dL (31-37) Red Cell Distribution Width 17.6 % (11.5-14.5) Platelet Count 425 x10^3/uL (140-400) Neutrophils (%) (Auto) 90 % (31-73) Lymphocytes (%) (Auto) 4 % (24-48) Monocytes (%) (Auto) 5 % (0-9) Eosinophils (%) (Auto) 1 % (0-3) Basophils (%) (Auto) 0 % (0-3) Neutrophils # (Auto) 13.6 x10^3uL (1.8-7.7) Lymphocytes # (Auto) 0.7 x10^3/uL (1.0-4.8) Monocytes # (Auto) 0.7 x10^3/uL (0.0-1.1) Eosinophils # (Auto) 0.1 x10^3/uL (0.0-0.7) Basophils # (Auto) 0.1 x10^3/uL (0.0-0.2) Segmented Neutrophils % 85 % (35-66) Band Neutrophils % 4 % (0-9) Lymphocytes % 7 % (24-48) Monocytes % 4 % (0-10) Platelet Estimate Increased (ADEQUATE) Poikilocytosis Slight Anisocytosis Slight Prothrombin Time 33.2 SEC (11.7-14.0) Prothromb Time International Ratio 3.5 (0.8-1.1) Activated Partial Thromboplast Time 55 SEC (24-38) Sodium Level 135 mmol/L (136-145) Potassium Level 3.6 mmol/L (3.5-5.1) Chloride Level 92 mmol/L (98-107) Carbon Dioxide Level 29 mmol/L (21-32) Anion Gap 14 (6-14) Blood Urea Nitrogen 35 mg/dL (8-26) Creatinine 4.3 mg/dL (0.7-1.3) Estimated GFR (Cockcroft-Gault) 14.2 Glucose Level 137 mg/dL (70-99) Lactic Acid Level 1.3 mmol/L (0.4-2.0) Calcium Level 8.9 mg/dL (8.5-10.1) Total Bilirubin 0.9 mg/dL (0.2-1.0) Direct Bilirubin 0.4 mg/dL (0.0-0.2) Aspartate Amino Transf (AST/SGOT) 33 U/L (15-37) Alanine Aminotransferase (ALT/SGPT) 42 U/L (16-63) Alkaline Phosphatase 284 U/L (46-116) Total Protein 8.5 g/dL (6.4-8.2) Albumin 3.3 g/dL (3.4-5.0) Glucose (Fingerstick) 166 mg/dL (70-99) 133 mg/dL (70-99) Nasal Screen MRSA (PCR) Negative (Negative) Test 02/24/17 08:25 02/24/17 10:50 02/24/17 11:42 02/24/17 16:34 Glucose (Fingerstick) 139 mg/dL (70-99) 134 mg/dL (70-99) 219 mg/dL (70-99) White Blood Count 10.0 x10^3/uL (4.0-11.0) Red Blood Count 3.22 x10^6/uL (4.30-5.70) Hemoglobin 9.4 g/dL (13.0-17.5) Hematocrit 28.7 % (39.0-53.0) Mean Corpuscular Volume 89 fL (79-100) Mean Corpuscular Hemoglobin 29 pg (25-35) Mean Corpuscular Hemoglobin Concent 33 g/dL (31-37) Red Cell Distribution Width 17.4 % (11.5-14.5) Platelet Count 373 x10^3/uL (140-400) Neutrophils (%) (Auto) 81 % (31-73) Lymphocytes (%) (Auto) 9 % (24-48) Monocytes (%) (Auto) 8 % (0-9) Eosinophils (%) (Auto) 1 % (0-3) Basophils (%) (Auto) 1 % (0-3) Neutrophils # (Auto) 8.1 x10^3uL (1.8-7.7) Lymphocytes # (Auto) 0.9 x10^3/uL (1.0-4.8) Monocytes # (Auto) 0.8 x10^3/uL (0.0-1.1) Eosinophils # (Auto) 0.1 x10^3/uL (0.0-0.7) Basophils # (Auto) 0.1 x10^3/uL (0.0-0.2) Prothrombin Time 32.1 SEC (11.7-14.0) Prothromb Time International Ratio 3.4 (0.8-1.1) Sodium Level 135 mmol/L (136-145) Potassium Level 4.1 mmol/L (3.5-5.1) Chloride Level 95 mmol/L (98-107) Carbon Dioxide Level 28 mmol/L (21-32) Anion Gap 12 (6-14) Blood Urea Nitrogen 48 mg/dL (8-26) Creatinine 5.5 mg/dL (0.7-1.3) Estimated GFR (Cockcroft-Gault) 10.7 Glucose Level 139 mg/dL (70-99) Calcium Level 8.8 mg/dL (8.5-10.1) Laboratory Tests Test 02/23/17 20:35 02/23/17 23:58 02/24/17 07:01 02/24/17 08:25 Glucose (Fingerstick) 166 mg/dL (70-99) 133 mg/dL (70-99) 139 mg/dL (70-99) Nasal Screen MRSA (PCR) Negative (Negative) Test 02/24/17 10:50 02/24/17 11:42 02/24/17 16:34 White Blood Count 10.0 x10^3/uL (4.0-11.0) Red Blood Count 3.22 x10^6/uL (4.30-5.70) Hemoglobin 9.4 g/dL (13.0-17.5) Hematocrit 28.7 % (39.0-53.0) Mean Corpuscular Volume 89 fL (79-100) Mean Corpuscular Hemoglobin 29 pg (25-35) Mean Corpuscular Hemoglobin Concent 33 g/dL (31-37) Red Cell Distribution Width 17.4 % (11.5-14.5) Platelet Count 373 x10^3/uL (140-400) Neutrophils (%) (Auto) 81 % (31-73) Lymphocytes (%) (Auto) 9 % (24-48) Monocytes (%) (Auto) 8 % (0-9) Eosinophils (%) (Auto) 1 % (0-3) Basophils (%) (Auto) 1 % (0-3) Neutrophils # (Auto) 8.1 x10^3uL (1.8-7.7) Lymphocytes # (Auto) 0.9 x10^3/uL (1.0-4.8) Monocytes # (Auto) 0.8 x10^3/uL (0.0-1.1) Eosinophils # (Auto) 0.1 x10^3/uL (0.0-0.7) Basophils # (Auto) 0.1 x10^3/uL (0.0-0.2) Prothrombin Time 32.1 SEC (11.7-14.0) Prothromb Time International Ratio 3.4 (0.8-1.1) Sodium Level 135 mmol/L (136-145) Potassium Level 4.1 mmol/L (3.5-5.1) Chloride Level 95 mmol/L (98-107) Carbon Dioxide Level 28 mmol/L (21-32) Anion Gap 12 (6-14) Blood Urea Nitrogen 48 mg/dL (8-26) Creatinine 5.5 mg/dL (0.7-1.3) Estimated GFR (Cockcroft-Gault) 10.7 Glucose Level 139 mg/dL (70-99) Calcium Level 8.8 mg/dL (8.5-10.1) Glucose (Fingerstick) 134 mg/dL (70-99) 219 mg/dL (70-99) Assessment/Plan Assessment/Plan This patient comes in for amputation of that toe. He is stable cardiac vazquez and may proceed with the surgery. Thank you very much for asking me to participate in the care of this patient JARON RAMOS MD Feb 24, 2017 20:37
[2017-02-24] MEDS ORDERED: DARBEPOETIN ALFA 60 MCG/0.3 ML DISP.SYRIN. SQ SCH (21:00)
[2017-02-24] MEDS: ATORVASTATIN CALCIUM 20 MG TABLET PO SCH (21:22)
[2017-02-24] MEDS: traZODone 50 MG TABLET. PO SCH (21:23)
[2017-02-25 03:38] VITALS: BP 116/53
[2017-02-25] MEDS: PIPERACILLIN/TAZOBACTAM 2.25 GM in IV NORMAL SALINE 50ML 50 ML IV SCH ×3 (05:51→20:06)
[2017-02-25] MEDS ORDERED: VANCOMYCIN RANDOM LEVEL. MC ONE (06:00)
[2017-02-25 06:45] VITALS: BP 117/57
[2017-02-25 06:58] LABS: CALCIUM 8.6 mg/dL (8.5-10.1); CREATININE 6.6 mg/dL (0.7-1.3); GFR 8.7; POTASSIUM 4.4 mmol/L (3.5-5.1)
[2017-02-25 07:02] LABS: INR 3.5 (0.8-1.1); PROTHROMBIN TIME PATIENT 32.7 SEC (11.7-14.0)
[2017-02-25 07:05] LABS: BASO # 0.1 x10^3/uL (0.0-0.2); BASO % 1 % (0-3); EOS % 4 % (0-3); HEMATOCRIT 29.4 % (39.0-53.0); HEMOGLOBIN 9.6 g/dL (13.0-17.5); LYMPH # 1.2 x10^3/uL (1.0-4.8); LYMPH % 15 % (24-48); MEAN CORPUSCULAR HEMOGLOBIN 29 pg (25-35); MEAN CORPUSCULAR HGB CONC 33 g/dL (31-37); MEAN CORPUSCULAR VOLUME 89 fL (79-100); MONO % 11 % (0-9); NEUT % 69 % (31-73); PLATELET COUNT 410 x10^3/uL (140-400); RED BLOOD COUNT 3.32 x10^6/uL (4.30-5.70); RED CELL DISTRIBUTION WIDTH 17.5 % (11.5-14.5)
[2017-02-25] MEDS: METOCLOPRAMIDE 5 MG TABLET. PO SCH ×4 (07:30→20:07)
[2017-02-25] MEDS: CALCIUM CARBONATE 500 MG TAB.CHEW PO SCH ×3 (07:30→16:35)
[2017-02-25] MEDS: PANTOPRAZOLE 40 MG TABLET.DR. PO SCH ×2 (07:30→16:35)
[2017-02-25] MEDS: LISINOPRIL 10 MG TABLET PO SCH (08:57)
[2017-02-25] MEDS: CITALOPRAM 20 MG TABLET. PO SCH (08:58)
[2017-02-25] MEDS: PIOGLITAZONE 15 MG TABLET. PO SCH (08:58)
[2017-02-25] MEDS: FOLIC/VIT B COMP W-C (RENAL) TABLET. PO SCH (08:58)
[2017-02-25] MEDS: ALPRAZolam 1 MG TABLET PO SCH ×3 (08:58→20:06)
[2017-02-25] MEDS: INSULIN ASPART 300 UNITS/3 ML INSULN.PEN SQ SCH ×3 (09:04→17:00)
--- NOTE | 2017-02-25 10:17 | PDOC ---
PROGRESS NOTES Subjective Subjective feels better Objective Objective Vital Signs Date Time Temp Pulse Resp B/P (MAP) Pulse Ox O2 Delivery O2 Flow Rate FiO2 02/25/17 08:57 52 117/57 02/25/17 06:45 98.1 17 95 BiPAP/CPAP 98.1 02/24/17 09:10 3 Physical Exam Abdomen: Normal bowel sounds, Soft, No tenderness Heart: Regular rate, Normal S1, Normal S2, Other (irregularly irregular, S1, S2 no changes in murmur.) Extremities: Other (right leg amputation. Large dressing over the left foot) General: Alert, Oriented X3, Cooperative HEENT: PERRLA Lungs: Clear to auscultation MUSCULOSKELETAL: Other (LE AMP) Neck: Supple Neuro: Normal speech Psych/Mental Status: Mental status NL Diagnosis Problem List Problems Medical Problems: (1) Diabetic ulcer of left foot Status: Acute Assessment Assessment Problems Medical Problems: (1) Diabetic ulcer of left foot Status: Acute FINAL IMPRESSION: 1. Left second toe with cellulitis, ulceration, osteomyelitis. The patient was taken to surgery, had amputation done. 2. Chronic anticoagulation, Coumadin, for atrial fibrillation. 3. Chronic systolic heart failure, ejection fraction is 30%. 4. Diabetes, insulin dependent. 5. End-stage renal disease, on hemodialysis. 6. 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 PLAN: had amputation of toe 2nd toe. dialysis today. iv antibiotics. home tomorrow. redness down. wbc 8.0. At this time, admit to hospital, intravenous antibiotics and the patient was taken to surgery, had amputation done. PT/OT, was given fresh frozen plasma to correct the INR. Resume Coumadin and see how the patient's condition improves. Problems: Plan Plan of Care Problems Medical Problems: (1) Diabetic ulcer of left foot Status: Acute Comment Review of Relevant I have reviewed the following items maria teresa (where applicable) has been applied. Labs Laboratory Tests Test 02/24/17 10:50 02/24/17 11:42 02/24/17 16:34 02/24/17 21:27 White Blood Count 10.0 x10^3/uL (4.0-11.0) Red Blood Count 3.22 x10^6/uL (4.30-5.70) Hemoglobin 9.4 g/dL (13.0-17.5) Hematocrit 28.7 % (39.0-53.0) Mean Corpuscular Volume 89 fL (79-100) Mean Corpuscular Hemoglobin 29 pg (25-35) Mean Corpuscular Hemoglobin Concent 33 g/dL (31-37) Red Cell Distribution Width 17.4 % (11.5-14.5) Platelet Count 373 x10^3/uL (140-400) Neutrophils (%) (Auto) 81 % (31-73) Lymphocytes (%) (Auto) 9 % (24-48) Monocytes (%) (Auto) 8 % (0-9) Eosinophils (%) (Auto) 1 % (0-3) Basophils (%) (Auto) 1 % (0-3) Neutrophils # (Auto) 8.1 x10^3uL (1.8-7.7) Lymphocytes # (Auto) 0.9 x10^3/uL (1.0-4.8) Monocytes # (Auto) 0.8 x10^3/uL (0.0-1.1) Eosinophils # (Auto) 0.1 x10^3/uL (0.0-0.7) Basophils # (Auto) 0.1 x10^3/uL (0.0-0.2) Prothrombin Time 32.1 SEC (11.7-14.0) Prothromb Time International Ratio 3.4 (0.8-1.1) Sodium Level 135 mmol/L (136-145) Potassium Level 4.1 mmol/L (3.5-5.1) Chloride Level 95 mmol/L (98-107) Carbon Dioxide Level 28 mmol/L (21-32) Anion Gap 12 (6-14) Blood Urea Nitrogen 48 mg/dL (8-26) Creatinine 5.5 mg/dL (0.7-1.3) Estimated GFR (Cockcroft-Gault) 10.7 Glucose Level 139 mg/dL (70-99) Calcium Level 8.8 mg/dL (8.5-10.1) Glucose (Fingerstick) 134 mg/dL (70-99) 219 mg/dL (70-99) 232 mg/dL (70-99) Test 02/25/17 05:00 02/25/17 06:52 White Blood Count 8.0 x10^3/uL (4.0-11.0) Red Blood Count 3.32 x10^6/uL (4.30-5.70) Hemoglobin 9.6 g/dL (13.0-17.5) Hematocrit 29.4 % (39.0-53.0) Mean Corpuscular Volume 89 fL (79-100) Mean Corpuscular Hemoglobin 29 pg (25-35) Mean Corpuscular Hemoglobin Concent 33 g/dL (31-37) Red Cell Distribution Width 17.5 % (11.5-14.5) Platelet Count 410 x10^3/uL (140-400) Neutrophils (%) (Auto) 69 % (31-73) Lymphocytes (%) (Auto) 15 % (24-48) Monocytes (%) (Auto) 11 % (0-9) Eosinophils (%) (Auto) 4 % (0-3) Basophils (%) (Auto) 1 % (0-3) Neutrophils # (Auto) 5.5 x10^3uL (1.8-7.7) Lymphocytes # (Auto) 1.2 x10^3/uL (1.0-4.8) Monocytes # (Auto) 0.9 x10^3/uL (0.0-1.1) Eosinophils # (Auto) 0.4 x10^3/uL (0.0-0.7) Basophils # (Auto) 0.1 x10^3/uL (0.0-0.2) Prothrombin Time 32.7 SEC (11.7-14.0) Prothromb Time International Ratio 3.5 (0.8-1.1) Sodium Level 134 mmol/L (136-145) Potassium Level 4.4 mmol/L (3.5-5.1) Chloride Level 93 mmol/L (98-107) Carbon Dioxide Level 28 mmol/L (21-32) Anion Gap 13 (6-14) Blood Urea Nitrogen 58 mg/dL (8-26) Creatinine 6.6 mg/dL (0.7-1.3) Estimated GFR (Cockcroft-Gault) 8.7 Glucose Level 196 mg/dL (70-99) Calcium Level 8.6 mg/dL (8.5-10.1) Random Vancomycin Level 17.5 mcg/mL Glucose (Fingerstick) 174 mg/dL (70-99) Microbiology 02/23/17 Blood Culture - Preliminary, Resulted NO GROWTH AFTER 1 DAY Medications Current Medications Alprazolam (Xanax) 1 mg TID PO Last administered on 02/25/17 08:58; Start at 14:00 Atorvastatin Calcium (Lipitor) 40 mg HS PO Last administered on 02/24/17 21:22 ; Start 02/24/17 at 21:00 Darbepoetin Noel (Aranesp) 60 mcg We SQ Last administered on 02/24/17 21:23; Start 02/24/17 at 21:00 Insulin Aspart (NovoLOG) 0-7 UNITS TIDWMEALS SQ Last administered on 02/25/17 09:04; Start 02/24/17 at 12:00 Trazodone HCl (Desyrel) 50 mg QHS PO Last administered on 02/24/17 21:23; Start 02/24/17 at 21:00 Vancomycin HCl 1 each 1X ONCE MC ; Start 02/25/17 at 06:00; Stop 02/25/17 at 06 :01; Status DC Vitals/I & O Vital Sign - Last 24 Hours 02/24/17 02/24/17 02/24/17 02/24/17 10:20 10:50 11:10 16:30 Temp 98.2 98.2 Pulse 59 52 54 47 Resp 20 B/P (MAP) 127/52 (77) 103/28 (53) 100/30 (53) 108/53 (71) Pulse Ox 97 96 96 97 O2 Delivery Room Air Room Air Room Air Room Air 02/24/17 02/24/17 02/24/17 02/25/17 19:00 20:15 23:39 03:38 Temp 98.2 98.3 98.1 98.2 98.3 98.1 Pulse 68 48 48 Resp 18 18 16 B/P (MAP) 109/78 (88) 101/44 (63) 116/53 (74) Pulse Ox 95 93 94 O2 Delivery Room Air Room Air BiPAP/CPAP BiPAP/CPAP 02/25/17 02/25/17 06:45 08:57 Temp 98.1 98.1 Pulse 52 52 Resp 17 B/P (MAP) 117/57 (77) 117/57 Pulse Ox 95 O2 Delivery BiPAP/CPAP RADHA MEYER MD Feb 25, 2017 10:17
[2017-02-25] MEDS: VANCOMYCIN PER PHARMACY MC PRN (11:16)
--- NOTE | 2017-02-25 11:42 | PDOC ---
Renal-Progress Notes Subjective Notes Notes NO NEW COMPLAINTS. PAIN IS WELL CONTROLLED History of Present Illness Hx of present illness STABLE Vitals Vitals Vital Signs Date Time Temp Pulse Resp B/P (MAP) Pulse Ox O2 Delivery O2 Flow Rate FiO2 02/25/17 08:57 52 117/57 02/25/17 06:45 98.1 17 95 BiPAP/CPAP 98.1 02/24/17 09:10 3 Weight Weight [ ] Labs Labs Laboratory Tests Test 02/24/17 11:42 02/24/17 16:34 02/24/17 21:27 02/25/17 05:00 Glucose (Fingerstick) 134 mg/dL (70-99) 219 mg/dL (70-99) 232 mg/dL (70-99) White Blood Count 8.0 x10^3/uL (4.0-11.0) Red Blood Count 3.32 x10^6/uL (4.30-5.70) Hemoglobin 9.6 g/dL (13.0-17.5) Hematocrit 29.4 % (39.0-53.0) Mean Corpuscular Volume 89 fL (79-100) Mean Corpuscular Hemoglobin 29 pg (25-35) Mean Corpuscular Hemoglobin Concent 33 g/dL (31-37) Red Cell Distribution Width 17.5 % (11.5-14.5) Platelet Count 410 x10^3/uL (140-400) Neutrophils (%) (Auto) 69 % (31-73) Lymphocytes (%) (Auto) 15 % (24-48) Monocytes (%) (Auto) 11 % (0-9) Eosinophils (%) (Auto) 4 % (0-3) Basophils (%) (Auto) 1 % (0-3) Neutrophils # (Auto) 5.5 x10^3uL (1.8-7.7) Lymphocytes # (Auto) 1.2 x10^3/uL (1.0-4.8) Monocytes # (Auto) 0.9 x10^3/uL (0.0-1.1) Eosinophils # (Auto) 0.4 x10^3/uL (0.0-0.7) Basophils # (Auto) 0.1 x10^3/uL (0.0-0.2) Prothrombin Time 32.7 SEC (11.7-14.0) Prothromb Time International Ratio 3.5 (0.8-1.1) Sodium Level 134 mmol/L (136-145) Potassium Level 4.4 mmol/L (3.5-5.1) Chloride Level 93 mmol/L (98-107) Carbon Dioxide Level 28 mmol/L (21-32) Anion Gap 13 (6-14) Blood Urea Nitrogen 58 mg/dL (8-26) Creatinine 6.6 mg/dL (0.7-1.3) Estimated GFR (Cockcroft-Gault) 8.7 Glucose Level 196 mg/dL (70-99) Calcium Level 8.6 mg/dL (8.5-10.1) Random Vancomycin Level 17.5 mcg/mL Test 02/25/17 06:52 Glucose (Fingerstick) 174 mg/dL (70-99) Micro Micro Microbiology 02/23/17 Blood Culture - Preliminary, Resulted NO GROWTH AFTER 1 DAY Review of Systems Constitutional: yes: weakness, alert, oriented Ears/Nose/Throat: Yes: no symptom reported Eyes: Yes: no symptom reported Pulmonary: Yes no symptom reported Cardiovascular: Yes no symptom reported Gastrointestional: Yes: constipation Genitourinary: Yes: no symptom reported Musculoskeletal: Yes: foot pain Skin: Yes no symptom reported Psychiatric/Neurological: Yes: no symptom reported Endocrine: Yes: no symptom reported Physical Exam General Appearance: no apparent distress Skin: warm Respiratory: bilateral CTA Heart: S1S2, RRR Abdomen: soft, bowel sounds present Extremities: pulses present, atrophy Neurology: alert, oriented Assessment Assessment IMP ESRD DM II HTN ANEMIA S/P LEFT 2ND TOE AMP PLAN HD TODAY UF TO DW DONNY JUAREZ MD Feb 25, 2017 11:42
--- NOTE | 2017-02-25 14:27 | PDOC ---
ORTHO PROGRESS NOTES Subjective Patient is doing well, No significant pain. diminished sensation left foot. Post-op Day: 1 (Left second toe amputation) Vitals Vital Signs Date Time Temp Pulse Resp B/P (MAP) Pulse Ox O2 Delivery O2 Flow Rate FiO2 02/25/17 08:57 52 117/57 02/25/17 06:45 98.1 17 95 BiPAP/CPAP 98.1 02/24/17 09:10 3 Labs Laboratory Tests Test 02/23/17 18:05 02/23/17 20:35 02/23/17 23:58 02/24/17 07:01 White Blood Count 15.1 x10^3/uL (4.0-11.0) Red Blood Count 3.72 x10^6/uL (4.30-5.70) Hemoglobin 10.5 g/dL (13.0-17.5) Hematocrit 33.1 % (39.0-53.0) Mean Corpuscular Volume 89 fL (79-100) Mean Corpuscular Hemoglobin 28 pg (25-35) Mean Corpuscular Hemoglobin Concent 32 g/dL (31-37) Red Cell Distribution Width 17.6 % (11.5-14.5) Platelet Count 425 x10^3/uL (140-400) Neutrophils (%) (Auto) 90 % (31-73) Lymphocytes (%) (Auto) 4 % (24-48) Monocytes (%) (Auto) 5 % (0-9) Eosinophils (%) (Auto) 1 % (0-3) Basophils (%) (Auto) 0 % (0-3) Neutrophils # (Auto) 13.6 x10^3uL (1.8-7.7) Lymphocytes # (Auto) 0.7 x10^3/uL (1.0-4.8) Monocytes # (Auto) 0.7 x10^3/uL (0.0-1.1) Eosinophils # (Auto) 0.1 x10^3/uL (0.0-0.7) Basophils # (Auto) 0.1 x10^3/uL (0.0-0.2) Segmented Neutrophils % 85 % (35-66) Band Neutrophils % 4 % (0-9) Lymphocytes % 7 % (24-48) Monocytes % 4 % (0-10) Platelet Estimate Increased (ADEQUATE) Poikilocytosis Slight Anisocytosis Slight Prothrombin Time 33.2 SEC (11.7-14.0) Prothromb Time International Ratio 3.5 (0.8-1.1) Activated Partial Thromboplast Time 55 SEC (24-38) Sodium Level 135 mmol/L (136-145) Potassium Level 3.6 mmol/L (3.5-5.1) Chloride Level 92 mmol/L (98-107) Carbon Dioxide Level 29 mmol/L (21-32) Anion Gap 14 (6-14) Blood Urea Nitrogen 35 mg/dL (8-26) Creatinine 4.3 mg/dL (0.7-1.3) Estimated GFR (Cockcroft-Gault) 14.2 Glucose Level 137 mg/dL (70-99) Lactic Acid Level 1.3 mmol/L (0.4-2.0) Calcium Level 8.9 mg/dL (8.5-10.1) Total Bilirubin 0.9 mg/dL (0.2-1.0) Direct Bilirubin 0.4 mg/dL (0.0-0.2) Aspartate Amino Transf (AST/SGOT) 33 U/L (15-37) Alanine Aminotransferase (ALT/SGPT) 42 U/L (16-63) Alkaline Phosphatase 284 U/L (46-116) Total Protein 8.5 g/dL (6.4-8.2) Albumin 3.3 g/dL (3.4-5.0) Glucose (Fingerstick) 166 mg/dL (70-99) 133 mg/dL (70-99) Nasal Screen MRSA (PCR) Negative (Negative) Test 02/24/17 08:25 02/24/17 10:50 02/24/17 11:42 02/24/17 16:34 Glucose (Fingerstick) 139 mg/dL (70-99) 134 mg/dL (70-99) 219 mg/dL (70-99) White Blood Count 10.0 x10^3/uL (4.0-11.0) Red Blood Count 3.22 x10^6/uL (4.30-5.70) Hemoglobin 9.4 g/dL (13.0-17.5) Hematocrit 28.7 % (39.0-53.0) Mean Corpuscular Volume 89 fL (79-100) Mean Corpuscular Hemoglobin 29 pg (25-35) Mean Corpuscular Hemoglobin Concent 33 g/dL (31-37) Red Cell Distribution Width 17.4 % (11.5-14.5) Platelet Count 373 x10^3/uL (140-400) Neutrophils (%) (Auto) 81 % (31-73) Lymphocytes (%) (Auto) 9 % (24-48) Monocytes (%) (Auto) 8 % (0-9) Eosinophils (%) (Auto) 1 % (0-3) Basophils (%) (Auto) 1 % (0-3) Neutrophils # (Auto) 8.1 x10^3uL (1.8-7.7) Lymphocytes # (Auto) 0.9 x10^3/uL (1.0-4.8) Monocytes # (Auto) 0.8 x10^3/uL (0.0-1.1) Eosinophils # (Auto) 0.1 x10^3/uL (0.0-0.7) Basophils # (Auto) 0.1 x10^3/uL (0.0-0.2) Prothrombin Time 32.1 SEC (11.7-14.0) Prothromb Time International Ratio 3.4 (0.8-1.1) Sodium Level 135 mmol/L (136-145) Potassium Level 4.1 mmol/L (3.5-5.1) Chloride Level 95 mmol/L (98-107) Carbon Dioxide Level 28 mmol/L (21-32) Anion Gap 12 (6-14) Blood Urea Nitrogen 48 mg/dL (8-26) Creatinine 5.5 mg/dL (0.7-1.3) Estimated GFR (Cockcroft-Gault) 10.7 Glucose Level 139 mg/dL (70-99) Calcium Level 8.8 mg/dL (8.5-10.1) Test 02/24/17 21:27 02/25/17 05:00 02/25/17 06:52 Glucose (Fingerstick) 232 mg/dL (70-99) 174 mg/dL (70-99) White Blood Count 8.0 x10^3/uL (4.0-11.0) Red Blood Count 3.32 x10^6/uL (4.30-5.70) Hemoglobin 9.6 g/dL (13.0-17.5) Hematocrit 29.4 % (39.0-53.0) Mean Corpuscular Volume 89 fL (79-100) Mean Corpuscular Hemoglobin 29 pg (25-35) Mean Corpuscular Hemoglobin Concent 33 g/dL (31-37) Red Cell Distribution Width 17.5 % (11.5-14.5) Platelet Count 410 x10^3/uL (140-400) Neutrophils (%) (Auto) 69 % (31-73) Lymphocytes (%) (Auto) 15 % (24-48) Monocytes (%) (Auto) 11 % (0-9) Eosinophils (%) (Auto) 4 % (0-3) Basophils (%) (Auto) 1 % (0-3) Neutrophils # (Auto) 5.5 x10^3uL (1.8-7.7) Lymphocytes # (Auto) 1.2 x10^3/uL (1.0-4.8) Monocytes # (Auto) 0.9 x10^3/uL (0.0-1.1) Eosinophils # (Auto) 0.4 x10^3/uL (0.0-0.7) Basophils # (Auto) 0.1 x10^3/uL (0.0-0.2) Prothrombin Time 32.7 SEC (11.7-14.0) Prothromb Time International Ratio 3.5 (0.8-1.1) Sodium Level 134 mmol/L (136-145) Potassium Level 4.4 mmol/L (3.5-5.1) Chloride Level 93 mmol/L (98-107) Carbon Dioxide Level 28 mmol/L (21-32) Anion Gap 13 (6-14) Blood Urea Nitrogen 58 mg/dL (8-26) Creatinine 6.6 mg/dL (0.7-1.3) Estimated GFR (Cockcroft-Gault) 8.7 Glucose Level 196 mg/dL (70-99) Calcium Level 8.6 mg/dL (8.5-10.1) Random Vancomycin Level 17.5 mcg/mL Laboratory Tests Test 02/24/17 16:34 02/24/17 21:27 02/25/17 05:00 02/25/17 06:52 Glucose (Fingerstick) 219 mg/dL (70-99) 232 mg/dL (70-99) 174 mg/dL (70-99) White Blood Count 8.0 x10^3/uL (4.0-11.0) Red Blood Count 3.32 x10^6/uL (4.30-5.70) Hemoglobin 9.6 g/dL (13.0-17.5) Hematocrit 29.4 % (39.0-53.0) Mean Corpuscular Volume 89 fL (79-100) Mean Corpuscular Hemoglobin 29 pg (25-35) Mean Corpuscular Hemoglobin Concent 33 g/dL (31-37) Red Cell Distribution Width 17.5 % (11.5-14.5) Platelet Count 410 x10^3/uL (140-400) Neutrophils (%) (Auto) 69 % (31-73) Lymphocytes (%) (Auto) 15 % (24-48) Monocytes (%) (Auto) 11 % (0-9) Eosinophils (%) (Auto) 4 % (0-3) Basophils (%) (Auto) 1 % (0-3) Neutrophils # (Auto) 5.5 x10^3uL (1.8-7.7) Lymphocytes # (Auto) 1.2 x10^3/uL (1.0-4.8) Monocytes # (Auto) 0.9 x10^3/uL (0.0-1.1) Eosinophils # (Auto) 0.4 x10^3/uL (0.0-0.7) Basophils # (Auto) 0.1 x10^3/uL (0.0-0.2) Prothrombin Time 32.7 SEC (11.7-14.0) Prothromb Time International Ratio 3.5 (0.8-1.1) Sodium Level 134 mmol/L (136-145) Potassium Level 4.4 mmol/L (3.5-5.1) Chloride Level 93 mmol/L (98-107) Carbon Dioxide Level 28 mmol/L (21-32) Anion Gap 13 (6-14) Blood Urea Nitrogen 58 mg/dL (8-26) Creatinine 6.6 mg/dL (0.7-1.3) Estimated GFR (Cockcroft-Gault) 8.7 Glucose Level 196 mg/dL (70-99) Calcium Level 8.6 mg/dL (8.5-10.1) Random Vancomycin Level 17.5 mcg/mL Notes Patient is awake and alert sitting up in bed. Breathing unlabored, no acute distress. Incision is well approximated closed with sutures and slight bloody drainage. Good cap refill and surrounding skin. No erythema, apparently at drainage or significant tenderness. Diminished sensation. Palpable pedal pulse Problems: (1) Osteomyelitis of ankle or foot Assessment and Plan Daily dressing changes Nonweightbearing GRISELDA PETERS INSURANCE AGENT Feb 25, 2017 14:27
[2017-02-25] MEDS ORDERED: VANCOMYCIN 1 GM in IV NORMAL SALINE 250ML 250 ML IV ONE (16:00)
[2017-02-25 19:00] VITALS: BP 123/41
[2017-02-25] MEDS: ATORVASTATIN CALCIUM 20 MG TABLET PO SCH (20:07)
[2017-02-25] MEDS: traZODone 50 MG TABLET. PO SCH (20:07)
[2017-02-25 23:00] VITALS: BP 128/50
[2017-02-26 03:00] VITALS: BP 134/41
[2017-02-26] MEDS: PIPERACILLIN/TAZOBACTAM 2.25 GM in IV NORMAL SALINE 50ML 50 ML IV SCH (05:57)
[2017-02-26 07:00] VITALS: BP 116/44
[2017-02-26 08:32] VITALS: BP 116/44
[2017-02-26] MEDS: ALPRAZolam 1 MG TABLET PO SCH (08:32)
[2017-02-26] MEDS: FOLIC/VIT B COMP W-C (RENAL) TABLET. PO SCH (08:32)
[2017-02-26] MEDS: LISINOPRIL 10 MG TABLET PO SCH (08:32)
[2017-02-26] MEDS: PANTOPRAZOLE 40 MG TABLET.DR. PO SCH (08:33)
[2017-02-26] MEDS: PIOGLITAZONE 15 MG TABLET. PO SCH (08:33)
[2017-02-26] MEDS: CITALOPRAM 20 MG TABLET. PO SCH (08:33)
[2017-02-26] MEDS: CALCIUM CARBONATE 500 MG TAB.CHEW PO SCH (08:33)
[2017-02-26] MEDS: METOCLOPRAMIDE 5 MG TABLET. PO SCH (08:33)
[2017-02-26] MEDS: INSULIN ASPART 300 UNITS/3 ML INSULN.PEN SQ SCH (08:39)
--- NOTE | 2017-02-26 09:20 | PDOC ---
PROGRESS NOTES Subjective Subjective feels good ,ready to go home Objective Objective Vital Signs Date Time Temp Pulse Resp B/P (MAP) Pulse Ox O2 Delivery O2 Flow Rate FiO2 02/26/17 08:32 53 116/44 02/26/17 07:00 97.5 20 99 Room Air 97.5 Physical Exam Abdomen: Normal bowel sounds, Soft, No tenderness Heart: Regular rate, Normal S1, Normal S2, Other (irregularly irregular, S1, S2 no changes in murmur.) Extremities: Other (right leg amputation. Large dressing over the left foot) General: Alert, Oriented X3, Cooperative HEENT: PERRLA Lungs: Clear to auscultation MUSCULOSKELETAL: Other (LE AMP) Neck: Supple Neuro: Normal speech Psych/Mental Status: Mental status NL Diagnosis Problem List Problems Medical Problems: (1) Diabetic ulcer of left foot Status: Acute Assessment Assessment Problems Medical Problems: (1) Diabetic ulcer of left foot Status: Acute FINAL IMPRESSION: 1. Left second toe with cellulitis, ulceration, osteomyelitis. The patient was taken to surgery, had amputation done. 2. Chronic anticoagulation, Coumadin, for atrial fibrillation. 3. Chronic systolic heart failure, ejection fraction is 30%. 4. Diabetes, insulin dependent. 5. End-stage renal disease, on hemodialysis. 6. History of cytsw-loe-qvvf amputation. PLAN: had amputation of toe 2nd toe. dialysis yesterday po antibiotics. home today. redness cleared wbc 8.0. inr 3.5 Problems: Plan Plan of Care Problems Medical Problems: (1) Diabetic ulcer of left foot Status: Acute Comment Review of Relevant I have reviewed the following items maria teresa (where applicable) has been applied. Labs Laboratory Tests Test 02/25/17 16:22 02/25/17 22:06 02/26/17 07:11 Glucose (Fingerstick) 147 mg/dL (70-99) 322 mg/dL (70-99) 226 mg/dL (70-99) Microbiology 02/23/17 Blood Culture - Preliminary, Resulted NO GROWTH AFTER 2 DAYS Medications Current Medications Vancomycin HCl 750 mg/Sodium Chloride 250 ml @ 250 mls/hr QTUTHSA IV ; Start at 16:00 Vancomycin HCl 1 gm/Sodium Chloride 250 ml @ 250 mls/hr 1X ONCE IV Last administered on 02/25/17t 16:32; Start 02/25/17 at 16:00; Stop 02/25/17 at 16:59 ; Status DC Vitals/I & O Vital Sign - Last 24 Hours 02/25/17 02/25/17 02/25/17 02/25/17 19:00 20:00 22:09 23:00 Temp 98.8 98.3 98.8 98.3 Pulse 61 59 Resp 20 20 B/P (MAP) 123/41 (68) 128/50 (76) Pulse Ox 98 98 O2 Delivery Room Air Room Air Room Air Room Air 02/25/17 02/26/17 02/26/17 02/26/17 23:20 03:00 07:00 08:32 Temp 98.2 97.5 98.2 97.5 Pulse 48 53 53 Resp 20 20 B/P (MAP) 134/41 (72) 116/44 (68) 116/44 Pulse Ox 94 99 O2 Delivery Room Air BiPAP/CPAP Room Air RADHA MEYER MD Feb 26, 2017 09:20
[2017-02-26] MEDS ORDERED: WARF3TAB54 PO (09:24)
[2017-02-26] MEDS ORDERED: AMOX1TAB58 PO (09:24)
[2017-02-26 09:32] LABS: INR 2.1 (0.8-1.1); PROTHROMBIN TIME PATIENT 22.4 SEC (11.7-14.0)
--- NOTE | 2017-02-26 12:36 | PDOC ---
Renal-Progress Notes Subjective Notes Notes FEELS WELL, NO PAIN History of Present Illness Hx of present illness STABLE Vitals Vitals Vital Signs Date Time Temp Pulse Resp B/P (MAP) Pulse Ox O2 Delivery O2 Flow Rate FiO2 02/26/17 08:32 53 116/44 02/26/17 08:00 Room Air 3.0 02/26/17 07:00 97.5 20 99 97.5 Weight Weight [ ] Labs Labs Laboratory Tests Test 02/25/17 16:22 02/25/17 22:06 02/26/17 07:11 02/26/17 08:50 Glucose (Fingerstick) 147 mg/dL (70-99) 322 mg/dL (70-99) 226 mg/dL (70-99) Prothrombin Time 22.4 SEC (11.7-14.0) Prothromb Time International Ratio 2.1 (0.8-1.1) Micro Micro Microbiology 02/23/17 Blood Culture - Preliminary, Resulted NO GROWTH AFTER 2 DAYS Review of Systems Constitutional: yes: weakness, alert, oriented Ears/Nose/Throat: Yes: no symptom reported Eyes: Yes: no symptom reported Pulmonary: Yes no symptom reported Cardiovascular: Yes no symptom reported Gastrointestional: Yes: constipation Genitourinary: Yes: no symptom reported Musculoskeletal: Yes: foot pain Skin: Yes no symptom reported Psychiatric/Neurological: Yes: no symptom reported Endocrine: Yes: no symptom reported Physical Exam General Appearance: no apparent distress Skin: warm Respiratory: bilateral CTA Heart: S1S2, RRR Abdomen: soft, bowel sounds present Extremities: pulses present, atrophy Neurology: alert, oriented Assessment Assessment IMP ESRD DM II HTN ANEMIA S/P LEFT 2ND TOE AMP PLAN HD TOMORROW OP D/C TOMORROW REPORT CALLED DONNY LUEVANO MD Feb 26, 2017 12:36
[2017-02-26] MEDS: VANCOMYCIN PER PHARMACY MC PRN (14:14)
--- NOTE | 2017-02-27 15:12 | PATHOLOGY ---
PATHOLOGY REPORT * * * * * * * * FINAL DIAGNOSIS: Toe, left second, amputation: - Skin with focal ulceration and acute abscess. - Underlying bone with focal fibrosis of marrow space. - Viable skin and subcutaneous tissue present at margin of specimen. (SKM:matthias; 02/26/2017) REPORT ELECTRONICALLY SIGNED BY: Susan Crandall M.D. DATE/TIME: 02/27/2017 15:11 * * * * * * * * GROSS PATHOLOGY: The specimen is received in formalin labeled "Kleber Bonilla, left second toe". Received is an amputated digit measuring 5.7 x 2.3 x 2.0 cm in greatest dimensions. The bone margin is jagged in appearance. The bone and soft tissue margins are inked black. The nail is absent. The ventral aspect of the specimen displays a poorly circumscribed, irregular in contour, necrotic, focally ulcerated light degroot lesion measuring 3.5 x 2.1 cm, which grossly abuts the inked margin. A full-thickness longitudinal cross-section is submitted from proximal to distal aspects in cassettes A1 and A2, following decalcification. (CAA; 02/25/2017) INITIAL CPT CODE(S): A; 04211, 57437 Professional services performed [place] [address] Technical services performed by [facility] at [address] [place] [address], [place] [address]. SPECIMEN(S) RECEIVED: A.Left second toe CLINICAL HISTORY: Osteomyelitis, cellulitis, left foot PATIENT: KLEBER BONILLA /AGE: 5 1955 (Age: 61) PATIENT #: [id number] ALT CASE #: SPECIMEN COLLECTION DATE: 02/24/2017 SPECIMEN RECEIVED DATE: 02/24/2017 [facility] - [address] [place] [address] - PHONE: [phone] * * * END OF REPORT * * *
[2017-02-27] MEDS ORDERED: VANCOMYCIN 750 MG in IV NORMAL SALINE 250ML 250 ML IV SCH (16:00)
--- NOTE | 2017-02-27 23:19 | PDOC ---
Provider Note Provider Note Discharge summary dictated. #[id number] RADHA MEYER MD Feb 27, 2017 23:19
--- NOTE | 2017-02-28 00:04 | DS ---
DATE OF DISCHARGE: 02/26/2017 REASON FOR ADMISSION TO THE HOSPITAL: Osteomyelitis of the left second toe. PROCEDURES DONE: 1. Amputation done. 2. Hemodialysis. CONSULTATIONS: Dr. Prater, Dr. Donovan, Dr. Damon. HOSPITAL COURSE: The patient is a 61-year-old male with history of diabetes. He has a previous amputation of the right below the knee and left foot as [facility]. He had a previous amputation of the left big toe, now the second toe has infection not doing any better, developed cellulitis of the foot and the thigh, was admitted to the hospital, was given vancomycin and Zosyn, was taken to surgery, had amputation of the left second toe and the patient was admitted to the hospital, was given antibiotics, was taken to surgery, and the patient's left second toe was done. The patient was given dialysis. His white count was down. Cellulitis improved, redness cleared up. The patient will be discharged on Augmentin for 7 more days. The patient is on Coumadin for atrial fibrillation. INR was slightly at 3.5, was given fresh frozen plasma prior to surgery to correct coagulopathy and patient was resumed back on Coumadin after that to keep it between 2 and 3 as a goal. FINAL DIAGNOSES: 1. Left second toe osteomyelitis. The patient underwent toe amputation. 2. End-stage renal disease, on hemodialysis. 3. Diabetes. 4. Hypertension. 5. Hyperlipidemia. 6. History of previous right cwfbp-ixn-wtzp amputation. 7. Ch A fib on coumadin DISPOSITION: Home. DISCHARGE MEDICATIONS: See MRAD for discharge medications. FOLLOWUP: [facility]. RADHA MEYER MD DR: TODD/makenna JOB#: [id number] / [id number] KAROLINA
== END 2017-02-26 14:36 | disposition home or self-care (01) | DRG 853 ==
LOC: ER 16:56 → 6 SOUTH 18:30
PROVIDERS: ADMIT Internal Medicine; ATTEND Internal Medicine
PROC: 5A1D00Z (ICD-10-PCS; 2017-02-23)
PROC: 30233L1 Transfusion of Nonautologous Fresh Plasma into Peripheral Vein, Percutaneous Approach (ICD-10-PCS; 2017-02-23)
PROC: 30233K1 Transfusion of Nonautologous Frozen Plasma into Peripheral Vein, Percutaneous Approach (ICD-10-PCS; 2017-02-23)
PROC: 0Y6S0Z0 Detachment at Left 2nd Toe, Complete, Open Approach (ICD-10-PCS; principal; 2017-02-24 07:30)
DX: A41.9 Sepsis, unspecified organism (principal); N18.6 End stage renal disease; I13.2 Hypertensive heart and chronic kidney disease with heart failure and with stage 5 chronic kidney disease, or end stage renal disease; E11.22 Type 2 diabetes mellitus with diabetic chronic kidney disease; E11.621 Type 2 diabetes mellitus with foot ulcer; D68.9 Coagulation defect, unspecified; L03.116 Cellulitis of left lower limb; I50.22 Chronic systolic (congestive) heart failure; M86.8X8 Other osteomyelitis, other site; I27.2 Other secondary pulmonary hypertension; L03.032 Cellulitis of left toe; D64.9 Anemia, unspecified; E11.69 Type 2 diabetes mellitus with other specified complication; E78.5 Hyperlipidemia, unspecified; I25.10 Atherosclerotic heart disease of native coronary artery without angina pectoris; I48.91 Unspecified atrial fibrillation; L97.529 Non-pressure chronic ulcer of other part of left foot with unspecified severity; Z83.3 Family history of diabetes mellitus; Z86.711 Personal history of pulmonary embolism; Z89.412 Acquired absence of left great toe; Z89.511 Acquired absence of right leg below knee; Z99.2 Dependence on renal dialysis; E21.3 Hyperparathyroidism, unspecified; K59.00 Constipation, unspecified; Z88.8 Allergy status to other drugs, medicaments and biological substances; E11.65 Type 2 diabetes mellitus with hyperglycemia
CPT/HCPCS: 36415; 73630; 80048; 80076; 80202; 82962; 83605; 85007; 85025; 85610; 85730; 86850; 86900; 86901; 86927; 87040; 87641; 93005; 96365; 96375; J0881; J1815; J2060; J2543; J2704; J3370; J3490; J7040; J7050; J8597; P9017; 99285-25; J7030

== ENCOUNTER → 2017-03-03 | Outpatient (CLI) | payer OTHER, MEDICARE ==
[2017-02-26 08:32] VITALS: BP 116/44
[~2017-03-03] MED LIST changes: +AMOX1TAB58 PO; +WARF3TAB54 PO
== END | disposition home or self-care (01) ==
LOC: PMGWOUND 11:03
PROVIDERS: ATTEND Preventive Medicine Undersea and Hyperbaric Medicine
DX: E11.621 Type 2 diabetes mellitus with foot ulcer (principal); L97.424 Non-pressure chronic ulcer of left heel and midfoot with necrosis of bone; E11.69 Type 2 diabetes mellitus with other specified complication; M86.68 Other chronic osteomyelitis, other site; E11.22 Type 2 diabetes mellitus with diabetic chronic kidney disease; I13.2 Hypertensive heart and chronic kidney disease with heart failure and with stage 5 chronic kidney disease, or end stage renal disease; I50.9 Heart failure, unspecified; N18.6 End stage renal disease; Z99.2 Dependence on renal dialysis; I48.91 Unspecified atrial fibrillation; Z86.711 Personal history of pulmonary embolism; Z89.511 Acquired absence of right leg below knee
CPT/HCPCS: 97597

== ENCOUNTER → 2017-03-10 | Outpatient (CLI) | payer OTHER, MEDICARE ==
[2017-02-26 08:32] VITALS: BP 116/44
== END | disposition home or self-care (01) ==
LOC: PMGWOUND 11:00
PROVIDERS: ATTEND Preventive Medicine Undersea and Hyperbaric Medicine
DX: E11.621 Type 2 diabetes mellitus with foot ulcer (principal); L97.424 Non-pressure chronic ulcer of left heel and midfoot with necrosis of bone; E11.69 Type 2 diabetes mellitus with other specified complication; M86.68 Other chronic osteomyelitis, other site; E11.22 Type 2 diabetes mellitus with diabetic chronic kidney disease; I13.2 Hypertensive heart and chronic kidney disease with heart failure and with stage 5 chronic kidney disease, or end stage renal disease; I50.9 Heart failure, unspecified; N18.6 End stage renal disease; Z99.2 Dependence on renal dialysis; I48.91 Unspecified atrial fibrillation; Z86.711 Personal history of pulmonary embolism
CPT/HCPCS: 97597

== ENCOUNTER → 2017-03-17 | Outpatient (CLI) | payer OTHER, MEDICARE ==
[2017-02-26 08:32] VITALS: BP 116/44
== END | disposition home or self-care (01) ==
LOC: PMGWOUND 10:16
PROVIDERS: ATTEND Emergency Medicine Undersea and Hyperbaric Medicine
DX: E11.621 Type 2 diabetes mellitus with foot ulcer (principal); L97.424 Non-pressure chronic ulcer of left heel and midfoot with necrosis of bone; E11.22 Type 2 diabetes mellitus with diabetic chronic kidney disease; I13.2 Hypertensive heart and chronic kidney disease with heart failure and with stage 5 chronic kidney disease, or end stage renal disease; N18.6 End stage renal disease; I50.43 Acute on chronic combined systolic (congestive) and diastolic (congestive) heart failure; E11.69 Type 2 diabetes mellitus with other specified complication; M86.68 Other chronic osteomyelitis, other site; I25.10 Atherosclerotic heart disease of native coronary artery without angina pectoris; E78.5 Hyperlipidemia, unspecified; E21.3 Hyperparathyroidism, unspecified; F41.9 Anxiety disorder, unspecified; K21.9 Gastro-esophageal reflux disease without esophagitis; F15.90 Other stimulant use, unspecified, uncomplicated; F32.9 Major depressive disorder, single episode, unspecified; M86.8X7 Other osteomyelitis, ankle and foot; I48.0 Paroxysmal atrial fibrillation; E11.51 Type 2 diabetes mellitus with diabetic peripheral angiopathy without gangrene; E11.43 Type 2 diabetes mellitus with diabetic autonomic (poly)neuropathy; Z86.14 Personal history of Methicillin resistant Staphylococcus aureus infection; Z86.711 Personal history of pulmonary embolism; Z86.718 Personal history of other venous thrombosis and embolism; Z79.4 Long term (current) use of insulin; Z79.01 Long term (current) use of anticoagulants; Z89.511 Acquired absence of right leg below knee; Z89.512 Acquired absence of left leg below knee; Z99.2 Dependence on renal dialysis
CPT/HCPCS: 97597

== ENCOUNTER → 2017-03-24 | Outpatient (CLI) | payer OTHER, MEDICARE ==
[2017-02-26 08:32] VITALS: BP 116/44
== END | disposition home or self-care (01) ==
LOC: PMGWOUND 10:00
PROVIDERS: ATTEND Preventive Medicine Undersea and Hyperbaric Medicine
DX: E11.621 Type 2 diabetes mellitus with foot ulcer (principal); L97.424 Non-pressure chronic ulcer of left heel and midfoot with necrosis of bone; L97.524 Non-pressure chronic ulcer of other part of left foot with necrosis of bone; F41.9 Anxiety disorder, unspecified; I25.10 Atherosclerotic heart disease of native coronary artery without angina pectoris; K21.9 Gastro-esophageal reflux disease without esophagitis; E11.22 Type 2 diabetes mellitus with diabetic chronic kidney disease; I13.2 Hypertensive heart and chronic kidney disease with heart failure and with stage 5 chronic kidney disease, or end stage renal disease; N18.6 End stage renal disease; I50.43 Acute on chronic combined systolic (congestive) and diastolic (congestive) heart failure; E78.5 Hyperlipidemia, unspecified; E21.3 Hyperparathyroidism, unspecified; F32.9 Major depressive disorder, single episode, unspecified; E11.69 Type 2 diabetes mellitus with other specified complication; M86.68 Other chronic osteomyelitis, other site; M86.8X7 Other osteomyelitis, ankle and foot; F15.90 Other stimulant use, unspecified, uncomplicated; E11.43 Type 2 diabetes mellitus with diabetic autonomic (poly)neuropathy; E11.51 Type 2 diabetes mellitus with diabetic peripheral angiopathy without gangrene; I48.0 Paroxysmal atrial fibrillation; Z86.718 Personal history of other venous thrombosis and embolism; Z86.711 Personal history of pulmonary embolism; Z89.512 Acquired absence of left leg below knee; Z89.511 Acquired absence of right leg below knee; Z79.4 Long term (current) use of insulin; Z99.2 Dependence on renal dialysis; Z79.01 Long term (current) use of anticoagulants
CPT/HCPCS: 97597

== ENCOUNTER → 2017-03-31 | Outpatient (CLI) | payer OTHER, MEDICARE ==
[~2017-03-31] MED LIST changes: +AMOX1TAB10 PO; +CITA40TA5 PO; +DOXY100T PO; +TRAZ50TA15 PO
== END | disposition home or self-care (01) ==
LOC: PMGWOUND 09:50
PROVIDERS: ATTEND Preventive Medicine Undersea and Hyperbaric Medicine
DX: E11.621 Type 2 diabetes mellitus with foot ulcer (principal); L97.424 Non-pressure chronic ulcer of left heel and midfoot with necrosis of bone; L97.524 Non-pressure chronic ulcer of other part of left foot with necrosis of bone; S60.415A Abrasion of left ring finger, initial encounter; S60.417A Abrasion of left little finger, initial encounter; F41.9 Anxiety disorder, unspecified; I25.10 Atherosclerotic heart disease of native coronary artery without angina pectoris; K21.9 Gastro-esophageal reflux disease without esophagitis; E78.5 Hyperlipidemia, unspecified; E21.3 Hyperparathyroidism, unspecified; F32.9 Major depressive disorder, single episode, unspecified; E11.22 Type 2 diabetes mellitus with diabetic chronic kidney disease; I13.2 Hypertensive heart and chronic kidney disease with heart failure and with stage 5 chronic kidney disease, or end stage renal disease; N18.6 End stage renal disease; I50.43 Acute on chronic combined systolic (congestive) and diastolic (congestive) heart failure; E11.69 Type 2 diabetes mellitus with other specified complication; M86.8X7 Other osteomyelitis, ankle and foot; M86.68 Other chronic osteomyelitis, other site; I48.0 Paroxysmal atrial fibrillation; E11.43 Type 2 diabetes mellitus with diabetic autonomic (poly)neuropathy; E11.51 Type 2 diabetes mellitus with diabetic peripheral angiopathy without gangrene; F15.90 Other stimulant use, unspecified, uncomplicated; Z86.718 Personal history of other venous thrombosis and embolism; Z86.711 Personal history of pulmonary embolism; Z99.2 Dependence on renal dialysis; Z79.01 Long term (current) use of anticoagulants; Z79.4 Long term (current) use of insulin; Z89.511 Acquired absence of right leg below knee; Z89.512 Acquired absence of left leg below knee; X58.XXXA Exposure to other specified factors, initial encounter; Y93.89 Activity, other specified; Y92.89 Other specified places as the place of occurrence of the external cause; Y99.8 Other external cause status
CPT/HCPCS: 97597

== ENCOUNTER 2017-04-28 16:23 | Inpatient (IN) | payer MEDICARE, OTHER ==
[~2017-04-28] VITALS: Ht 190.5 cm; Wt 124.7 kg
[~2017-04-28 16:23] MED LIST changes: +CLON0.5T3 PO; +DARB10SY IJ; +FAMO20TA5 PO; +FERR-26 PO; +FOLI0.8T3 PO; +HYDR100V3 IV; +INSU100V SQ; +LISI10TA2 PO; +OXYC10TA45 PO
[2017-04-28 19:00] VITALS: BP 97/40
[2017-04-28] MEDS: HYDROcodone/APAP 10/325 1 TAB TABLET PO PRN (19:38)
[2017-04-28] MEDS ORDERED: clonazePAM 0.5 MG TABLET PO PRN (21:15)
[2017-04-28] MEDS ORDERED: SENNOSIDES/DOCUSATE 8.6/50MG TABLET. PO PRN (21:15)
[2017-04-28] MEDS ORDERED: INSU100C SQ (21:46)
[2017-04-28] MEDS ORDERED: WARF3TAB7 PO (21:46)
[2017-04-28] MEDS ORDERED: PIOG45TA40 PO (21:46)
[2017-04-28] MEDS ORDERED: MIDO5TAB PO (21:46)
[2017-04-28] MEDS ORDERED: CLON0.5T3 PO (21:46)
[2017-04-28] MEDS ORDERED: DIPH1TAB PO (21:46)
[2017-04-28] MEDS ORDERED: POLY17PO29 PO (21:46)
[2017-04-28] MEDS ORDERED: [UNRECOGNIZED DRUG - OTHER] TOP (21:46)
[2017-04-28] MEDS ORDERED: ONDA4DIS4 IV (21:46)
[2017-04-28] MEDS ORDERED: MICO (21:46)
[2017-04-28] MEDS: clonazePAM 0.5 MG TABLET PO SCH (22:00)
[2017-04-28] MEDS ORDERED: DIPHENOXYLATE/ATROPINE TABLET. PO PRN (22:00)
[2017-04-28] MEDS ORDERED: ONDANSETRON PF 4 MG/2 ML VIAL. IV PRN (22:00)
[2017-04-28] MEDS ORDERED: POLYETHYLENE GLYCOL 3350 17 GM PACKET. PO PRN (22:00)
[2017-04-28] MEDS ORDERED: DEXTROSE 50% 25 GM / 50ML DISP.SYRIN. IV PRN (22:00)
[2017-04-28] MEDS ORDERED: DARB60DI SQ (22:01)
[2017-04-28 23:00] VITALS: BP 90/41
[2017-04-29 05:27] LABS: BASO # 0.2 x10^3/uL (0.0-0.2); BASO % 2 % (0-3); EOS % 6 % (0-3); HEMATOCRIT 24.5 % (39.0-53.0); HEMOGLOBIN 7.8 g/dL (13.0-17.5); LYMPH # 1.1 x10^3/uL (1.0-4.8); LYMPH % 16 % (24-48); MEAN CORPUSCULAR HEMOGLOBIN 29 pg (25-35); MEAN CORPUSCULAR HGB CONC 32 g/dL (31-37); MEAN CORPUSCULAR VOLUME 92 fL (79-100); MONO % 8 % (0-9); NEUT % 67 % (31-73); PLATELET COUNT 256 x10^3/uL (140-400); RED BLOOD COUNT 2.67 x10^6/uL (4.30-5.70); RED CELL DISTRIBUTION WIDTH 17.4 % (11.5-14.5); WHITE BLOOD COUNT 7.1 x10^3/uL (4.0-11.0)
[2017-04-29 05:43] LABS: INR 2.5 (0.8-1.1); PROTHROMBIN TIME PATIENT 25.6 SEC (11.7-14.0)
[2017-04-29 05:46] LABS: CALCIUM 8.5 mg/dL (8.5-10.1); CREATININE 6.7 mg/dL (0.7-1.3); GFR 8.5; POTASSIUM 4.8 mmol/L (3.5-5.1)
[2017-04-29 06:00] VITALS: BP 99/45
[2017-04-29] MEDS: MIDODRINE 5 MG TABLET PO SCH ×2 (07:30→16:14)
[2017-04-29] MEDS ORDERED: INSULIN ASPART 300 UNITS/3 ML INSULN.PEN SQ SCH ×2 (07:30→08:00)
[2017-04-29] MEDS: CALCIUM CARBONATE 500 MG TAB.CHEW PO SCH ×3 (07:30→16:30)
[2017-04-29] MEDS ORDERED: IV NORMAL SALINE 1000ML BAG 1,000 ML IV PRN ×2 (08:39)
[2017-04-29] MEDS ORDERED: DIALYSIS PATIENT. MC PRN ×2 (08:45)
[2017-04-29] MEDS ORDERED: ALBUMIN HUMAN 25% 200 ML IV PRN (08:45)
[2017-04-29] MEDS: CITALOPRAM 20 MG TABLET. PO SCH (09:00)
[2017-04-29] MEDS: FOLIC/VIT B COMP W-C (RENAL) TABLET. PO SCH (09:00)
[2017-04-29] MEDS: FERROUS SULFATE 325 MG TABLET. PO SCH (09:00)
[2017-04-29] MEDS: clonazePAM 0.5 MG TABLET PO SCH ×3 (09:00→21:49)
[2017-04-29] MEDS: oxyCODONE ER 10 MG TAB.ER.12H PO SCH ×2 (09:00→21:49)
[2017-04-29] MEDS: PIOGLITAZONE 15 MG TABLET. PO SCH (09:00)
[2017-04-29] MEDS: ATORVASTATIN CALCIUM 40 MG TABLET. PO SCH (09:00)
[2017-04-29] MEDS: LISINOPRIL 10 MG TABLET PO SCH (09:00)
[2017-04-29] MEDS ORDERED: FAMOTIDINE 20 MG TABLET. PO SCH (09:00)
[2017-04-29] MEDS ORDERED: DEXTROSE 50% 25 GM / 50ML DISP.SYRIN. IV PRN (10:00)
--- NOTE | 2017-04-29 10:15 | PDOC ---
Provider Note Provider Note H&P dictated. #[id number] RADHA MEYER MD Apr 29, 2017 10:15
--- NOTE | 2017-04-29 11:02 | HP ---
ADMIT DATE: 04/28/2017 PATIENT LOCATION: 434. REASON FOR ADMISSION TO THE HOSPITAL: Shift in the fragments of the distal femoral fracture and for possible surgery with correction of the fracture fragment. HISTORY OF PRESENT ILLNESS: The patient is a 61-year-old male. The patient was in the hospital and discharged on 04/08/2017. At that time, he had a fall, had a distal femoral fracture and he also had a previous left hip fracture in the past and had surgery done, removal of hip screw and placement of a long trochanteric nail for the femoral fracture. The patient was discharged to [facility] on 04/08/2017 for rehabilitation and therapy and the patient had seen Dr. Prater yesterday in the office for followup of the fracture. X-ray shows displacement of the distal femoral fracture. So, the patient was admitted to the hospital for contemplating surgery today. The patient is on dialysis this morning. PAST MEDICAL HISTORY: He has a history of congestive heart failure, atrial fibrillation, diabetes, peripheral vascular disease, end-stage renal disease, hypertension and hyperlipidemia. PAST SURGICAL HISTORY: He had a right gnpzr-dso-brei amputation. The patient has a left second toe amputation for osteomyelitis, left hip fracture and beginning of this month, he had a mechanical fall, had a distal femoral fracture and had nailing done. He also had AV shunt, cardiac catheterization in the past. ALLERGIES: None. MEDICATIONS: Coumadin 5 mg daily, Xanax 1 mg 4 times daily, atorvastatin 40 mg daily, Lexapro 40 mg daily, hydrocodone q.6h., insulin sliding scale, Reglan 10 mg 3 times daily, Protonix 40 mg daily, Actos 45 mg daily, Altace 10 mg daily and senna daily. PERSONAL HISTORY: No history of smoking, alcohol or drug abuse. FAMILY HISTORY: Positive for diabetes and heart disease. SOCIAL HISTORY: Lives with his , has a motor scooter and has right yygmm-ykt-glsh prosthesis. REVIEW OF SYMPTOMS: The patient feels okay. Denies any problems, seen in dialysis unit. PHYSICAL EXAMINATION: VITAL SIGNS: Temperature 97, pulse 50, respirations 18, blood pressure 97/40 and 96 on room air. HEENT: Head is atraumatic. Pupils equal. Oral cavity, no congestion. He has a central line in the neck. CHEST: Symmetrical. CARDIOVASCULAR: S1, S2. LUNGS: Clear. ABDOMEN: Soft. No mass palpable. EXTERNAL GENITALIA: No Jeong. RECTAL EXAMINATION: Deferred. EXTREMITIES: Right lygsa-rtm-ldkv amputation stump looks good. Left foot, the patient has a dressing, had a previous amputation of the left second toe and the patient has a surgical scar on the left hip as well as the distal thigh for the recent surgery. NEUROLOGICAL EXAMINATION: Normal cranial nerves. Moving upper extremities. The patient has an AV shunt in the left upper arm. He has ulcers on the left third and fourth fingers on the left hand from chronic vascular disease. LABORATORY DATA: Shows an INR is 2.5. White count 7, hemoglobin 7.8 and platelets 174,000. Electrolytes show sodium 137, potassium 4.8, chloride 99, bicarbonate 30, BUN 52, creatinine 6.7 and glucose 95. FINAL IMPRESSION: 1. Shifting of the distal femoral fragment. The patient had intramedullary nailing done earlier this month, is going to go for revision. 2. End-stage renal disease, on hemodialysis. 3. Insulin-dependent diabetes. 4. Right dokvz-zfw-rhtn amputation. 5. Congestive heart failure, chronic, systolic. 6. Chronic atrial fibrillation, on Coumadin. PLAN: At this time, going to surgery today. Later correct the INR and also dialysis this morning. PT, OT rehabilitation. RADHA MEYER MD DR: TODD/makenna JOB#: [id number] / [id number]
[2017-04-29] MEDS: INSULIN ASPART 300 UNITS/3 ML INSULN.PEN SQ SCH ×2 (12:00→17:00)
--- NOTE | 2017-04-29 12:10 | PDOC ---
Renal-Progress Notes Subjective Notes Notes NO COMPLAINTS History of Present Illness Hx of present illness STABLE Vitals Vitals Vital Signs Date Time Temp Pulse Resp B/P (MAP) Pulse Ox O2 Delivery O2 Flow Rate FiO2 04/29/17 06:00 96.8 54 18 99/45 (63) 97 Room Air 96.8 04/28/17 20:38 2.0 Weight Weight [ ] I.O. Intake and Output Intake and Output 04/29/17 07:00 Intake Total 200 ml Output Total 300 ml Balance -100 ml Intake Oral 200 ml Output Urine Total 300 ml Labs Labs Laboratory Tests Test 04/28/17 21:22 04/29/17 05:20 Glucose (Fingerstick) 104 mg/dL (70-99) White Blood Count 7.1 x10^3/uL (4.0-11.0) Red Blood Count 2.67 x10^6/uL (4.30-5.70) Hemoglobin 7.8 g/dL (13.0-17.5) Hematocrit 24.5 % (39.0-53.0) Mean Corpuscular Volume 92 fL (79-100) Mean Corpuscular Hemoglobin 29 pg (25-35) Mean Corpuscular Hemoglobin Concent 32 g/dL (31-37) Red Cell Distribution Width 17.4 % (11.5-14.5) Platelet Count 256 x10^3/uL (140-400) Neutrophils (%) (Auto) 67 % (31-73) Lymphocytes (%) (Auto) 16 % (24-48) Monocytes (%) (Auto) 8 % (0-9) Eosinophils (%) (Auto) 6 % (0-3) Basophils (%) (Auto) 2 % (0-3) Neutrophils # (Auto) 4.7 x10^3uL (1.8-7.7) Lymphocytes # (Auto) 1.1 x10^3/uL (1.0-4.8) Monocytes # (Auto) 0.6 x10^3/uL (0.0-1.1) Eosinophils # (Auto) 0.5 x10^3/uL (0.0-0.7) Basophils # (Auto) 0.2 x10^3/uL (0.0-0.2) Prothrombin Time 25.6 SEC (11.7-14.0) Prothromb Time International Ratio 2.5 (0.8-1.1) Sodium Level 137 mmol/L (136-145) Potassium Level 4.8 mmol/L (3.5-5.1) Chloride Level 99 mmol/L (98-107) Carbon Dioxide Level 30 mmol/L (21-32) Anion Gap 8 (6-14) Blood Urea Nitrogen 52 mg/dL (8-26) Creatinine 6.7 mg/dL (0.7-1.3) Estimated GFR (Cockcroft-Gault) 8.5 Glucose Level 95 mg/dL (70-99) Calcium Level 8.5 mg/dL (8.5-10.1) Review of Systems Constitutional: yes: weakness, alert, oriented Ears/Nose/Throat: Yes: no symptom reported Pulmonary: Yes no symptom reported Cardiovascular: Yes no symptom reported Gastrointestional: Yes: constipation Genitourinary: Yes: no symptom reported Musculoskeletal: Yes: muscle stiffness Skin: Yes no symptom reported Psychiatric/Neurological: Yes: no symptom reported Endocrine: Yes: no symptom reported Physical Exam General Appearance: no apparent distress Skin: warm Respiratory: bilateral CTA Heart: S1S2 Abdomen: soft Genitourinary: bladder flat Extremities: pulses present Neurology: alert, oriented Assessment Assessment IMP ESRD ANEMIA DM II HTN DISTAL FEMUR FX - APPARENT SHIFT IN A DISTAL FRAGMENT? PLAN START ARANESP HD TODAY UF TO DW CORRECTIVE SURGERY LATER TODAY DONNY LUEVANO MD Apr 29, 2017 12:10
--- NOTE | 2017-04-29 13:47 | PDOC ---
Provider Note Provider Note Reason for consult Lt foot wound with wound vac Referring physician DR Araujo HPI: 61-year-old male well known to us [facility] getting [facility]. The patient was in the hospital and discharged on 04/08/2017. Patient had seen Dr. Prater in the office for followup of the fracture. X-ray shows displacement of the Lt distal femoral fracture. Pt readmitted at [facility] for possible surgery.He has not been on any antibiotics at this time.He is at dialysis unit today ROS pt says feels ok pain is under control otherwise neg wound vac lt foot PAST MEDICAL HISTORY: ESRD on HD H/O CHF,A FIB DM PVD HTN HLD PAST SURGICAL HISTORY: Right tapzy-fst-pbtd amputation. The patient has a left second toe amputation for osteomyelitis,treated with wound vac He had left hip fracture s/p distal femoral fracture with nail ALLERGIES: None. MEDICATIONS: reviewed antibiotics none FAMILY HISTORY: as in H and P SOCIAL HISTORY: No history of smoking, alcohol or drug abuse. PHYSICAL EXAMINATION: VITAL SIGNS: stable afebrile HEENT: atraumatic,normocephalic no oral lesions NECK supple CHEST: Clear HEART S1, S2. ABDO: Soft. No mass palpable. EXT Right uwtwy-glr-lggw amputation stump looks good. Left foot, the patient has a dressing, had a previous amputation of the left second toe and the patient has a surgical scar on the left hip as well as the distal thigh for the recent surgery.Dressing intact, dry, wound vac in place, pics seen NEURO: grossly intact DERM no gen rash He has ulcers on the left third and fourth fingers on the left hand from chronic vascular disease.stable PSYCH appropiate mood LAB CBC,CMP reviewed IMP 1. Shifting of the distal femoral fragment. The patient had intramedullary nailing done earlier this month, is going to go for revision. 2. End-stage renal disease, on hemodialysis. 3. Insulin-dependent diabetes. 4. Right mzqtr-kqw-hzct amputation. 5. Congestive heart failure, chronic, systolic. 6. Chronic atrial fibrillation, on Coumadin. 7.Chronic ulcers on lt hand not infected 8.Lt foot wound with wound vac stable REC: Continue observation off antibiotics at this tiime Plans is to go for surgery today Monitor for fever continue supportive care HOLLIE SCHAFER MD Apr 29, 2017 13:47
[2017-04-29] MEDS ORDERED: fentaNYL PF VIAL 100 MCG/2 ML VIAL IM PRN (14:15)
[2017-04-29 14:35] VITALS: BP 115/44
[2017-04-29 14:57] VITALS: BP 117/46
[2017-04-29] MEDS ORDERED: PROPOFOL 20 ML IV ONE (15:45)
[2017-04-29] MEDS ORDERED: LIDOCAINE 2% PF Vial for OR 5 ML VIAL. ONE (15:45)
[2017-04-29] MEDS ORDERED: fentaNYL PF VIAL 100 MCG/2 ML VIAL ONE ×2 (15:46→17:23)
[2017-04-29] MEDS ORDERED: ROCURONIUM 50 MG/5 ML VIAL. ONE ×2 (15:46→17:23)
[2017-04-29] MEDS ORDERED: SUCCINYLCHOLINE 200 MG/10 ML VIAL. ONE (15:46)
[2017-04-29] MEDS: WARFARIN 3 MG TABLET. PO SCH (16:00)
[2017-04-29] MEDS ORDERED: NEOSTIGMINE 10 MG/10 ML VIAL. ONE (17:32)
[2017-04-29] MEDS ORDERED: ONDANSETRON PF 4 MG/2 ML VIAL. ONE (17:32)
[2017-04-29] MEDS ORDERED: GLYCOPYRROLATE 1 MG/5 ML VIAL. ONE (17:33)
[2017-04-29] MEDS ORDERED: ALBUMIN HUMAN 5% 500 ML IV ONE (17:50)
[2017-04-29] MEDS ORDERED: VASOPRESSIN 20 UNIT/ML VIAL. ONE (17:53)
[2017-04-29] MEDS ORDERED: 0.9 % SODIUM CHLORIDE 50 ML VIAL. IJ ONE (17:54)
[2017-04-29 18:07] LABS: HEMATOCRIT 21.2 % (39.0-53.0); WHITE BLOOD COUNT 6.6 x10^3/uL (4.0-11.0)
[2017-04-29 18:10] LABS: HEMOGLOBIN 6.9 g/dL (13.0-17.5)
[2017-04-29 18:11] LABS: HEP B SURFACE ABDY Non Reactive (.)
[2017-04-29 18:11] LABS: INR 2.1 (0.8-1.1); PROTHROMBIN TIME PATIENT 22.2 SEC (11.7-14.0)
[2017-04-29 20:00] VITALS: BP 92/49
--- NOTE | 2017-04-29 20:02 | PDOC4 ---
Operative Note Operative Note Date of surgery: 04/29/2017 Preoperative diagnosis: Left distal femur fracture Postoperative diagnosis same Operative procedure: Operative reduction internal fixation left distal femur fracture Surgeon: Josi Anesthesia: Gen. endotracheal Estimated blood loss: 1000 mL Complications: None Transfused 4 units packed red blood cells, 2 units fresh frozen plasma plus crystalloid Operative indications: Patient is a 61-year-old male endstage renal disease on dialysis with multiple medical problems who underwent intramedullary fixation of a femoral shaft fracture with a long intramedullary nail secondary to a present healing intertrochanteric fracture as well. Patient sustained a fractured distal to the fixation and rehabilitation. I explained to the family despite his risk of healing due to circulatory issues and diabetes among other medical problems this fracture requires open plate fixation. All the patient's and family's questions were answered consent was obtained and he agrees to proceed with operative evaluation and treatment Operative text: Patient was identified procedure verified patient placed in the supine position on the operating table. After adequate amounts of general endotracheal anesthesia were administered the left lower extremity was prepped and draped in standard sterile fashion and after timeout was performed patient procedure identified and verified and incision was made over the lateral femur dissection carried out through the iliotibial band and the comminuted fracture site was located. Distal femoral nail locking screws were involved in the fracture site and were therefore loose and removed. An 18 hole Catie periprosthetic distal femur locking plate was placed with the minimally invasive targeting guide and a single distal fixation screw was carried out under fluoroscopic guidance with the plate aligned proximally under fluoroscopic guidance a single cable was placed to draw the bone into the plate and several distal locking screws were placed in the femoral condyle area one through the nail which was locked for additional fixation and proximal screws were placed anterior and posterior to the nail for additional fixation as well as unicortical screws very proximally where the nail impeded their further progress these were all locked to ensure optimal and fixation and excellent fixation carried out under multiple fluoroscopic views. Thorough irrigation carried out normal saline solution fascia was closed with #1 strata fix PDS suture subcutaneous closure with buried Vicryl suture skin closure with tia sterile dressings were applied patient was returned recovery room and subsequently to intensive care unit in stable condition APURVA SEVILLA MD Apr 29, 2017 20:02
[2017-04-29] MEDS ORDERED: HYDROmorphone 2 MG/ML VIAL IV PRN (20:30)
[2017-04-29] MEDS ORDERED: fentaNYL PF VIAL 100 MCG/2 ML VIAL IV PRN ×2 (20:30)
[2017-04-29] MEDS ORDERED: ONDANSETRON PF 4 MG/2 ML VIAL. IV PRN (20:30)
[2017-04-29] MEDS ORDERED: MORPHINE SULFATE 2 MG/ML DISP.SYRIN. IV PRN (20:30)
[2017-04-29] MEDS: PHENYLEPHRINE INJ 80 MG in IV NORMAL SALINE 250ML 250 ML IV PRN (20:36)
[2017-04-29 20:43] LABS: BASO # 0.1 x10^3/uL (0.0-0.2); BASO % 1 % (0-3); EOS % 0 % (0-3); HEMATOCRIT 26.4 % (39.0-53.0); HEMOGLOBIN 8.7 g/dL (13.0-17.5); LYMPH # 0.2 x10^3/uL (1.0-4.8); LYMPH % 2 % (24-48); MEAN CORPUSCULAR HEMOGLOBIN 29 pg (25-35); MEAN CORPUSCULAR HGB CONC 33 g/dL (31-37); MEAN CORPUSCULAR VOLUME 88 fL (79-100); MONO % 1 % (0-9); NEUT % 97 % (31-73); PLATELET COUNT 165 x10^3/uL (140-400); RED BLOOD COUNT 2.99 x10^6/uL (4.30-5.70); RED CELL DISTRIBUTION WIDTH 17.2 % (11.5-14.5); WHITE BLOOD COUNT 12.7 x10^3/uL (4.0-11.0)
[2017-04-29 20:53] LABS: INR 2.5 (0.8-1.1); PROTHROMBIN TIME PATIENT 25.4 SEC (11.7-14.0)
[2017-04-29 20:59] LABS: ALBUMIN 2.6 g/dL (3.4-5.0); ALBUMIN/GLOBULIN RATIO 0.9 (1.0-1.7); CALCIUM 7.8 mg/dL (8.5-10.1); CREATININE 3.9 mg/dL (0.7-1.3); GFR 15.9; POTASSIUM 4.6 mmol/L (3.5-5.1); TOTAL BILIRUBIN 1.2 mg/dL (0.2-1.0); TOTAL PROTEIN 5.6 g/dL (6.4-8.2)
[2017-04-29] MEDS ORDERED: INSULIN DETEMIR 300 UNITS/3 ML INSULN.PEN. SQ SCH (21:00)
[2017-04-29] MEDS: INSULIN DETEMIR 300 UNITS/3 ML INSULN.PEN. SQ SCH (21:00)
[2017-04-29] MEDS ORDERED: DARBEPOETIN ALFA 60 MCG/0.3 ML DISP.SYRIN. SQ SCH ×2 (21:00)
[2017-04-29 21:10] LABS: ANISOCYTOSIS SLIGHT; PLT ESTIMATE ADEQUATE (ADEQUATE)
[2017-04-29 21:11] LABS: BURR CELLS FEW; POIKILOCYTOSIS SLIGHT; SCHISTOCYTES OCC
[2017-04-29] MEDS: traZODone 50 MG TABLET. PO PRN (21:50)
[2017-04-29 22:00] VITALS: BP 114/39
[2017-04-29 23:00] VITALS: BP 91/46
[2017-04-30] VITALS (24 sets, daily range): BP systolic 78–141; BP diastolic 39–61
[2017-04-30] MEDS: fentaNYL PF VIAL 100 MCG/2 ML VIAL IV PRN ×4 (00:24→20:18)
[2017-04-30 07:16] LABS: CALCIUM 7.8 mg/dL (8.5-10.1); CREATININE 4.6 mg/dL (0.7-1.3); GFR 13.1; POTASSIUM 5.1 mmol/L (3.5-5.1)
--- NOTE | 2017-04-30 07:28 | PDOC ---
Infectious Disease Note Subjective Subjective pt feels ok, pain is under control, no f/c/n/v/d he underwent Operative reduction internal fixation left distal femur fracture for lt distal femur fracture on 04/29/2017 ROS ROS neg Vital Sign Vital Signs Vital Signs Date Time Temp Pulse Resp B/P (MAP) Pulse Ox O2 Delivery O2 Flow Rate FiO2 04/30/17 06:00 74 17 110/53 (72) 100 Nasal Cannula 4.0 04/30/17 04:00 98.3 98.3 Physical Exam PHYSICAL EXAM GENERAL: NAD, Alertxox3 HEENT: anicteric NECK: Supple, no JVD, LUNGS: Clear HEART: S1S2, ABD: Soft, NT, no organomegaly, no rebound EXT: LLE dressing intact, dry,RT BKA stump looks good, lt hand dressing dry, intact, ulcers stable 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: Alert, oriented x 3, no focal neurologic deficit SKIN: No rash IV: ok RT IJ,PIV LUE fistula site looks ok Labs Lab Laboratory Tests Test 04/29/17 08:50 04/29/17 14:05 04/29/17 18:00 04/29/17 19:27 Hepatitis B Surface Antigen Negative (Negative) Hepatitis B Surface Antibody Non reactive (.) Glucose (Fingerstick) 77 mg/dL (70-99) 121 mg/dL (70-99) White Blood Count 6.6 x10^3/uL (4.0-11.0) Hemoglobin 6.9 g/dL (13.0-17.5) Hematocrit 21.2 % (39.0-53.0) Platelet Count 232 x10^3/uL (140-400) Prothrombin Time 22.2 SEC (11.7-14.0) Prothromb Time International Ratio 2.1 (0.8-1.1) Activated Partial Thromboplast Time 48 SEC (24-38) Test 04/29/17 20:30 04/29/17 21:53 White Blood Count 12.7 x10^3/uL (4.0-11.0) Red Blood Count 2.99 x10^6/uL (4.30-5.70) Hemoglobin 8.7 g/dL (13.0-17.5) Hematocrit 26.4 % (39.0-53.0) Mean Corpuscular Volume 88 fL (79-100) Mean Corpuscular Hemoglobin 29 pg (25-35) Mean Corpuscular Hemoglobin Concent 33 g/dL (31-37) Red Cell Distribution Width 17.2 % (11.5-14.5) Platelet Count 165 x10^3/uL (140-400) Neutrophils (%) (Auto) 97 % (31-73) Lymphocytes (%) (Auto) 2 % (24-48) Monocytes (%) (Auto) 1 % (0-9) Eosinophils (%) (Auto) 0 % (0-3) Basophils (%) (Auto) 1 % (0-3) Neutrophils # (Auto) 12.3 x10^3uL (1.8-7.7) Lymphocytes # (Auto) 0.2 x10^3/uL (1.0-4.8) Monocytes # (Auto) 0.1 x10^3/uL (0.0-1.1) Eosinophils # (Auto) 0.0 x10^3/uL (0.0-0.7) Basophils # (Auto) 0.1 x10^3/uL (0.0-0.2) Segmented Neutrophils % 89 % (35-66) Band Neutrophils % 7 % (0-9) Lymphocytes % 3 % (24-48) Monocytes % 1 % (0-10) Platelet Estimate Adequate (ADEQUATE) Poikilocytosis Slight Anisocytosis Slight [place] Cells Few Schistocytes Occ Prothrombin Time 25.4 SEC (11.7-14.0) Prothromb Time International Ratio 2.5 (0.8-1.1) Sodium Level 138 mmol/L (136-145) Potassium Level 4.6 mmol/L (3.5-5.1) Chloride Level 99 mmol/L (98-107) Carbon Dioxide Level 26 mmol/L (21-32) Anion Gap 13 (6-14) Blood Urea Nitrogen 27 mg/dL (8-26) Creatinine 3.9 mg/dL (0.7-1.3) Estimated GFR (Cockcroft-Gault) 15.9 BUN/Creatinine Ratio 7 (6-20) Glucose Level 162 mg/dL (70-99) Calcium Level 7.8 mg/dL (8.5-10.1) Total Bilirubin 1.2 mg/dL (0.2-1.0) Aspartate Amino Transf (AST/SGOT) 26 U/L (15-37) Alanine Aminotransferase (ALT/SGPT) 13 U/L (16-63) Alkaline Phosphatase 127 U/L (46-116) Total Protein 5.6 g/dL (6.4-8.2) Albumin 2.6 g/dL (3.4-5.0) Albumin/Globulin Ratio 0.9 (1.0-1.7) Glucose (Fingerstick) 159 mg/dL (70-99) Micro none Objective Assessment 1.Fracture of distal femoral fragment Operative reduction internal fixation left distal femur fracture for lt distal femur fracture on 04/29/2017 2. End-stage renal disease, on hemodialysis. 3. Insulin-dependent diabetes. 4. Right mwcho-[id number] amputation. 5. h/o Congestive heart failure, chronic, systolic. 6. Chronic atrial fibrillation, on Coumadin. 7.Chronic ulcers on lt hand un infected,ischemia from underlying PAD 8.Lt foot wound per wound team pics stable 9.leucocytosis reactive 10.anemia chronic 11.PAD Plan Plan of Care continue off abx at this time monitor closely leucocytosis is reactive ,post surgery wound care for LLE and lt hand HOLLIE SCHAFER MD Apr 30, 2017 07:28
--- NOTE | 2017-04-30 07:39 | PDOC ---
PROGRESS NOTES Objective Objective Vital Signs Date Time Temp Pulse Resp B/P (MAP) Pulse Ox O2 Delivery O2 Flow Rate FiO2 04/30/17 06:00 74 17 110/53 (72) 100 Nasal Cannula 4.0 04/30/17 04:00 98.3 98.3 Intake and Output 04/30/17 07:00 Intake Total 1149 ml Output Total 0 ml Balance 1149 ml Intake Oral 480 ml IV Total 31 ml Blood Product IV Normal Saline Flush 638 ml Output Urine Total 0 ml # Bowel Movements 1 Physical Exam MUSCULOSKELETAL: Other Comment Review of Relevant I have reviewed the following items maria teresa (where applicable) has been applied. Labs Laboratory Tests Test 04/29/17 08:50 04/29/17 14:05 04/29/17 18:00 04/29/17 19:27 Hepatitis B Surface Antigen Negative (Negative) Hepatitis B Surface Antibody Non reactive (.) Glucose (Fingerstick) 77 mg/dL (70-99) 121 mg/dL (70-99) White Blood Count 6.6 x10^3/uL (4.0-11.0) Hemoglobin 6.9 g/dL (13.0-17.5) Hematocrit 21.2 % (39.0-53.0) Platelet Count 232 x10^3/uL (140-400) Prothrombin Time 22.2 SEC (11.7-14.0) Prothromb Time International Ratio 2.1 (0.8-1.1) Activated Partial Thromboplast Time 48 SEC (24-38) Test 04/29/17 20:30 04/29/17 21:53 04/30/17 06:50 White Blood Count 12.7 x10^3/uL (4.0-11.0) Red Blood Count 2.99 x10^6/uL (4.30-5.70) Hemoglobin 8.7 g/dL (13.0-17.5) Hematocrit 26.4 % (39.0-53.0) Mean Corpuscular Volume 88 fL (79-100) Mean Corpuscular Hemoglobin 29 pg (25-35) Mean Corpuscular Hemoglobin Concent 33 g/dL (31-37) Red Cell Distribution Width 17.2 % (11.5-14.5) Platelet Count 165 x10^3/uL (140-400) Neutrophils (%) (Auto) 97 % (31-73) Lymphocytes (%) (Auto) 2 % (24-48) Monocytes (%) (Auto) 1 % (0-9) Eosinophils (%) (Auto) 0 % (0-3) Basophils (%) (Auto) 1 % (0-3) Neutrophils # (Auto) 12.3 x10^3uL (1.8-7.7) Lymphocytes # (Auto) 0.2 x10^3/uL (1.0-4.8) Monocytes # (Auto) 0.1 x10^3/uL (0.0-1.1) Eosinophils # (Auto) 0.0 x10^3/uL (0.0-0.7) Basophils # (Auto) 0.1 x10^3/uL (0.0-0.2) Segmented Neutrophils % 89 % (35-66) Band Neutrophils % 7 % (0-9) Lymphocytes % 3 % (24-48) Monocytes % 1 % (0-10) Platelet Estimate Adequate (ADEQUATE) Poikilocytosis Slight Anisocytosis Slight [place] Cells Few Schistocytes Occ Prothrombin Time 25.4 SEC (11.7-14.0) Prothromb Time International Ratio 2.5 (0.8-1.1) Sodium Level 138 mmol/L (136-145) 136 mmol/L (136-145) Potassium Level 4.6 mmol/L (3.5-5.1) 5.1 mmol/L (3.5-5.1) Chloride Level 99 mmol/L (98-107) 97 mmol/L (98-107) Carbon Dioxide Level 26 mmol/L (21-32) 27 mmol/L (21-32) Anion Gap 13 (6-14) 12 (6-14) Blood Urea Nitrogen 27 mg/dL (8-26) 34 mg/dL (8-26) Creatinine 3.9 mg/dL (0.7-1.3) 4.6 mg/dL (0.7-1.3) Estimated GFR (Cockcroft-Gault) 15.9 13.1 BUN/Creatinine Ratio 7 (6-20) Glucose Level 162 mg/dL (70-99) 225 mg/dL (70-99) Calcium Level 7.8 mg/dL (8.5-10.1) 7.8 mg/dL (8.5-10.1) Total Bilirubin 1.2 mg/dL (0.2-1.0) Aspartate Amino Transf (AST/SGOT) 26 U/L (15-37) Alanine Aminotransferase (ALT/SGPT) 13 U/L (16-63) Alkaline Phosphatase 127 U/L (46-116) Total Protein 5.6 g/dL (6.4-8.2) Albumin 2.6 g/dL (3.4-5.0) Albumin/Globulin Ratio 0.9 (1.0-1.7) Glucose (Fingerstick) 159 mg/dL (70-99) Medications Current Medications Albumin Human 200 ml @ 200 mls/hr 1X PRN PRN IV Hypotension; Start 04/29/17 at 08:45; Stop 04/29/17 at 14:44; Status DC Albumin Human 500 ml @ As Directed STK-MED ONCE IV ; Start 04/29/17 at 17:50; Stop 04/29/17 at 17:51; Status DC Atorvastatin Calcium (Lipitor) 40 mg DAILY PO ; Start 04/29/17 at 09:00 Cefazolin Sodium/ Dextrose 50 ml @ As Directed STK-MED ONCE IV ; Start at 16:46; Stop 04/29/17 at 16:47; Status DC Citalopram Hydrobromide (CeleXA) 20 mg DAILY PO ; Start 04/29/17 at 09:00 Darbepoetin Noel (Aranesp) 60 mcg Th SQ Last administered on 04/29/17t 22:11; Start 04/29/17 at 21:00 Darbepoetin Noel (Aranesp) 60 mcg WEEKLYHS SQ ; Start 04/29/17 at 21:00; Stop 04/29/17 at 21:00; Status DC Dextrose (Dextrose 50%-Water Syringe) 12.5 gm PRN Q15MIN PRN IV SEE COMMENTS; Start 04/29/17 at 10:00 Ephedrine Sulfate (Akovaz) 50 mg STK-MED ONCE .ROUTE ; Start 04/29/17 at 16:47 ; Stop 04/29/17 at 16:48; Status DC Famotidine (Pepcid) 20 mg DAILY PO ; Start 04/29/17 at 09:00; Stop 04/29/17 at 14:04; Status DC Famotidine (Pepcid) 20 mg Q48H PO ; Start 05/01/17 at 09:00 Fentanyl Citrate (Fentanyl 2ml Vial) 12.5 mcg PRN Q3HRS PRN IM PAIN; Start at 14:15; Stop 04/29/17 at 14:34; Status DC Fentanyl Citrate (Fentanyl 2ml Vial) 12.5 mcg PRN Q3HRS PRN IV PAIN Last administered on 04/30/17t 00:24; Start 04/29/17 at 14:45 Fentanyl Citrate (Fentanyl 2ml Vial) 25 mcg PRN Q5MIN PRN IV Acute Pain; Start 04/29/17 at 20:30; Stop 04/30/17 at 20:29 Fentanyl Citrate (Fentanyl 2ml Vial) 50 mcg PRN Q5MIN PRN IV Acute Pain; Start 04/29/17 at 20:30; Stop 04/30/17 at 20:29 Fentanyl Citrate (Fentanyl 2ml Vial) 100 mcg STK-MED ONCE .ROUTE ; Start at 15:46; Stop 04/29/17 at 15:47; Status DC Fentanyl Citrate (Fentanyl 2ml Vial) 100 mcg STK-MED ONCE .ROUTE ; Start at 17:23; Stop 04/29/17 at 17:24; Status DC Ferrous Sulfate (Feosol) 325 mg DAILY PO ; Start 04/29/17 at 09:00 Glycopyrrolate (Robinul) 1 mg STK-MED ONCE .ROUTE ; Start 04/29/17 at 17:33; Stop 04/29/17 at 17:34; Status DC Hydromorphone HCl (Dilaudid) 0.2 mg PRN Q10MIN PRN IV Mild pain; Start at 20:30; Stop 04/30/17 at 20:29 Info (PHARMACY MONITORING -- do not chart) 1 each PRN DAILY PRN MC SEE COMMENTS ; Start 04/29/17 at 08:45 Info (PHARMACY MONITORING -- do not chart) 1 each PRN DAILY PRN MC SEE COMMENTS ; Start 04/29/17 at 08:45; Status UNV Insulin Aspart (NovoLOG) 0-5 UNITS TIDWMEALS SQ ; Start 04/29/17 at 08:00; Stop 04/29/17 at 14:05; Status DC Insulin Aspart (NovoLOG) 0-7 UNITS TIDWMEALS SQ ; Start 04/29/17 at 12:00 Insulin Detemir (Levemir) 12 units QHS SQ ; Start 04/29/17 at 21:00 Insulin Detemir (Levemir) 22 units QHS SQ ; Start 04/29/17 at 21:00; Stop at 21:00; Status DC Lidocaine HCl (Lidocaine Pf 2% Vial) 5 ml STK-MED ONCE .ROUTE ; Start 04/29/17 at 15:45; Stop 04/29/17 at 15:46; Status DC Lisinopril (Prinivil) 10 mg DAILY PO ; Start 04/29/17 at 09:00 Morphine Sulfate 2 mg PRN Q10MIN PRN IV Mild Pain; Start 04/29/17 at 20:30; Stop 04/30/17 at 20:29 Neostigmine Methylsulfate (Bloxiverz) 10 mg STK-MED ONCE .ROUTE ; Start at 17:32; Stop 04/29/17 at 17:33; Status DC Ondansetron HCl (Zofran) 4 mg PRN Q6HRS PRN IV Nausea, 1st Choice; Start 04/29 at 20:30; Stop 04/30/17 at 20:29 Ondansetron HCl (Zofran) 4 mg STK-MED ONCE .ROUTE ; Start 04/29/17 at 17:32; Stop 04/29/17 at 17:33; Status DC Oxycodone HCl (OxyCONTIN) 10 mg BID PO Last administered on 04/29/17t 21:49; Start 04/29/17 at 09:00 Phenylephrine HCl 80 mg/Sodium Chloride 258 ml @ 0 mls/hr CONT PRN IV SEE I/O RECORD Last administered on 04/29/17 20:36; Start 04/29/17 at 20:30 Pioglitazone HCl (Actos) 45 mg DAILY PO ; Start 04/29/17 at 09:00 Propofol 20 ml @ As Directed STK-MED ONCE IV ; Start 04/29/17 at 15:45; Stop 04/29/17 at 15:46; Status DC Rocuronium [place] (Zemuron) 50 mg STK-MED ONCE .ROUTE ; Start 04/29/17 at 15: 46; Stop 04/29/17 at 15:47; Status DC Rocuronium [place] (Zemuron) 50 mg STK-MED ONCE .ROUTE ; Start 04/29/17 at 17: 23; Stop 04/29/17 at 17:24; Status DC Sodium Chloride 1,000 ml @ 400 mls/hr Q2H30M PRN IV PATENCY; Start 04/29/17 at 08:39; Stop 04/29/17 at 20:38; Status DC Sodium Chloride 1,000 ml @ 1,000 mls/hr Q1H PRN IV hypotension; Start at 08:39; Stop 04/29/17 at 14:38; Status DC Sodium Chloride (Sodium Chloride) 50 ml STK-MED ONCE IJ ; Start 04/29/17 at 17: 54; Stop 04/29/17 at 17:55; Status DC Succinylcholine Chloride (Anectine) 200 mg STK-MED ONCE .ROUTE ; Start at 15:46; Stop 04/29/17 at 15:47; Status DC Vasopressin (Vasostrict) 20 unit STK-MED ONCE .ROUTE ; Start 04/29/17 at 17:53 ; Stop 04/29/17 at 17:54; Status DC Vitamin B Complex/ Vitamin C (Sapphire-Sara) 1 tab DAILY PO ; Start 04/29/17 at 09: 00 Warfarin Sodium (Coumadin) 3 mg DAILY16 PO ; Start 04/29/17 at 16:00 Vitals/I & O Vital Sign - Last 24 Hours 04/29/17 04/29/17 04/29/17 04/29/17 08:00 14:35 14:57 15:32 Temp 97.9 98.1 97.4 97.9 98.1 97.4 Pulse 72 72 74 Resp 18 18 17 B/P (MAP) 115/44 117/46 135/62 Pulse Ox 96 O2 Delivery Nasal Cannula Nasal Cannula O2 Flow Rate 3 04/29/17 04/29/17 04/29/17 04/29/17 15:32 15:35 19:25 19:30 Temp 36.45022 101.7 36.3 101.7 Pulse 74 84 Resp 20 B/P (MAP) 118/52 Pulse Ox 96 94 O2 Delivery Nasal Cannula Nasal Cannula Nasal Cannula O2 Flow Rate 3 4.0 04/29/17 04/29/17 04/29/17 04/29/17 19:40 19:55 20:00 20:09 Pulse 84 84 84 89 Resp 20 22 12 20 B/P (MAP) 109/52 84/45 92/49 (63) 67/41 Pulse Ox 94 94 100 96 O2 Delivery Nasal Cannula Nasal Cannula Nasal Cannula Nasal Cannula O2 Flow Rate 4 4 4.0 4 04/29/17 04/29/17 04/29/17 04/29/17 20:15 20:30 20:45 21:49 Pulse 88 86 86 Resp 22 20 20 16 B/P (MAP) 84/45 74/41 92/46 Pulse Ox 100 100 99 100 O2 Delivery Nasal Cannula Nasal Cannula Nasal Cannula Nasal Cannula O2 Flow Rate 4 4 4 4.0 04/29/17 04/29/17 04/30/17 04/30/17 22:00 23:00 00:00 00:00 Temp 98.1 98.1 Pulse 85 90 84 Resp 03 21 16 B/P (MAP) 114/39 (64) 91/46 (61) 99/47 (64) Pulse Ox 100 100 96 O2 Delivery Nasal Cannula Nasal Cannula BiPAP/CPAP Nasal Cannula O2 Flow Rate 4.0 4.0 3.0 4.0 04/30/17 04/30/17 04/30/17 04/30/17 00:24 00:54 01:00 01:50 Pulse 81 Resp 23 16 16 18 B/P (MAP) 96/45 (62) Pulse Ox 96 94 94 96 O2 Delivery BiPAP/CPAP BiPAP/CPAP BiPAP/CPAP BiPAP/CPAP O2 Flow Rate 3.0 3.0 3.0 3.0 04/30/17 04/30/17 04/30/17 04/30/17 02:00 03:00 04:00 04:00 Temp 98.3 98.3 Pulse 81 76 77 Resp 18 15 15 B/P (MAP) 101/50 (67) 95/47 (63) 101/49 (66) Pulse Ox 96 94 94 O2 Delivery BiPAP/CPAP BiPAP/CPAP BiPAP/CPAP Nasal Cannula O2 Flow Rate 3.0 3.0 3.0 3.0 04/30/17 04/30/17 05:00 06:00 Pulse 74 74 Resp 26 17 B/P (MAP) 102/49 (66) 110/53 (72) Pulse Ox 92 100 O2 Delivery BiPAP/CPAP Nasal Cannula O2 Flow Rate 3.0 4.0 Intake and Output 04/29/17 04/29/17 04/30/17 15:00 23:00 07:00 Intake Total 338 ml 300 ml 511 ml Output Total 0 ml 0 ml Balance 338 ml 300 ml 511 ml RADHA MEYER MD Apr 30, 2017 07:39
[2017-04-30 07:41] LABS: BASO % 0 % (0-3); EOS % 0 % (0-3); HEMOGLOBIN 8.2 g/dL (13.0-17.5); LYMPH # 0.5 x10^3/uL (1.0-4.8); LYMPH % 5 % (24-48); MEAN CORPUSCULAR HEMOGLOBIN 29 pg (25-35); MEAN CORPUSCULAR HGB CONC 33 g/dL (31-37); MEAN CORPUSCULAR VOLUME 88 fL (79-100); MONO % 3 % (0-9); NEUT % 92 % (31-73); PLATELET COUNT 202 x10^3/uL (140-400); RED BLOOD COUNT 2.86 x10^6/uL (4.30-5.70); WHITE BLOOD COUNT 9.7 x10^3/uL (4.0-11.0)
[2017-04-30] MEDS: INSULIN ASPART 300 UNITS/3 ML INSULN.PEN SQ SCH ×3 (08:00→17:36)
[2017-04-30] MEDS ORDERED: IV NORMAL SALINE 1000ML BAG 1,000 ML IV PRN ×2 (08:33)
[2017-04-30] MEDS ORDERED: diphenhydrAMINE 50 MG/ML VIAL IV PRN ×2 (08:45)
[2017-04-30] MEDS ORDERED: DIALYSIS PATIENT. MC PRN (08:45)
[2017-04-30] MEDS: LISINOPRIL 10 MG TABLET PO SCH ×2 (09:00→09:25)
[2017-04-30] MEDS: ATORVASTATIN CALCIUM 40 MG TABLET. PO SCH (09:24)
[2017-04-30] MEDS: FOLIC/VIT B COMP W-C (RENAL) TABLET. PO SCH (09:24)
[2017-04-30] MEDS: CALCIUM CARBONATE 500 MG TAB.CHEW PO SCH ×3 (09:24→17:33)
[2017-04-30] MEDS: oxyCODONE ER 10 MG TAB.ER.12H PO SCH ×2 (09:25→21:00)
[2017-04-30] MEDS: MIDODRINE 5 MG TABLET PO SCH ×2 (09:25→17:33)
[2017-04-30] MEDS: CITALOPRAM 20 MG TABLET. PO SCH (09:25)
[2017-04-30] MEDS: FERROUS SULFATE 325 MG TABLET. PO SCH (09:25)
[2017-04-30] MEDS: PIOGLITAZONE 15 MG TABLET. PO SCH (09:25)
[2017-04-30] MEDS: clonazePAM 0.5 MG TABLET PO SCH ×3 (09:25→20:59)
[2017-04-30 11:17] LABS: INR 2.5 (0.8-1.1); PROTHROMBIN TIME PATIENT 25.6 SEC (11.7-14.0)
--- NOTE | 2017-04-30 11:40 | PDOC ---
Renal-Progress Notes Subjective Notes Notes NONE History of Present Illness Hx of present illness STABLE Vitals Vitals Vital Signs Date Time Temp Pulse Resp B/P (MAP) Pulse Ox O2 Delivery O2 Flow Rate FiO2 04/30/17 09:25 74 110/53 04/30/17 09:25 100 Nasal Cannula 4.0 04/30/17 06:00 17 04/30/17 04:00 98.3 98.3 Weight Weight [ ] I.O. Intake and Output Intake and Output 04/30/17 07:00 Intake Total 1149 ml Output Total 0 ml Balance 1149 ml Intake Oral 480 ml IV Total 31 ml Blood Product IV Normal Saline Flush 638 ml Output Urine Total 0 ml # Bowel Movements 1 Labs Labs Laboratory Tests Test 04/29/17 14:05 04/29/17 18:00 04/29/17 19:27 04/29/17 20:30 Glucose (Fingerstick) 77 mg/dL (70-99) 121 mg/dL (70-99) White Blood Count 6.6 x10^3/uL (4.0-11.0) 12.7 x10^3/uL (4.0-11.0) Hemoglobin 6.9 g/dL (13.0-17.5) 8.7 g/dL (13.0-17.5) Hematocrit 21.2 % (39.0-53.0) 26.4 % (39.0-53.0) Platelet Count 232 x10^3/uL (140-400) 165 x10^3/uL (140-400) Prothrombin Time 22.2 SEC (11.7-14.0) 25.4 SEC (11.7-14.0) Prothromb Time International Ratio 2.1 (0.8-1.1) 2.5 (0.8-1.1) Activated Partial Thromboplast Time 48 SEC (24-38) Red Blood Count 2.99 x10^6/uL (4.30-5.70) Mean Corpuscular Volume 88 fL (79-100) Mean Corpuscular Hemoglobin 29 pg (25-35) Mean Corpuscular Hemoglobin Concent 33 g/dL (31-37) Red Cell Distribution Width 17.2 % (11.5-14.5) Neutrophils (%) (Auto) 97 % (31-73) Lymphocytes (%) (Auto) 2 % (24-48) Monocytes (%) (Auto) 1 % (0-9) Eosinophils (%) (Auto) 0 % (0-3) Basophils (%) (Auto) 1 % (0-3) Neutrophils # (Auto) 12.3 x10^3uL (1.8-7.7) Lymphocytes # (Auto) 0.2 x10^3/uL (1.0-4.8) Monocytes # (Auto) 0.1 x10^3/uL (0.0-1.1) Eosinophils # (Auto) 0.0 x10^3/uL (0.0-0.7) Basophils # (Auto) 0.1 x10^3/uL (0.0-0.2) Segmented Neutrophils % 89 % (35-66) Band Neutrophils % 7 % (0-9) Lymphocytes % 3 % (24-48) Monocytes % 1 % (0-10) Platelet Estimate Adequate (ADEQUATE) Poikilocytosis Slight Anisocytosis Slight [place] Cells Few Schistocytes Occ Sodium Level 138 mmol/L (136-145) Potassium Level 4.6 mmol/L (3.5-5.1) Chloride Level 99 mmol/L (98-107) Carbon Dioxide Level 26 mmol/L (21-32) Anion Gap 13 (6-14) Blood Urea Nitrogen 27 mg/dL (8-26) Creatinine 3.9 mg/dL (0.7-1.3) Estimated GFR (Cockcroft-Gault) 15.9 BUN/Creatinine Ratio 7 (6-20) Glucose Level 162 mg/dL (70-99) Calcium Level 7.8 mg/dL (8.5-10.1) Total Bilirubin 1.2 mg/dL (0.2-1.0) Aspartate Amino Transf (AST/SGOT) 26 U/L (15-37) Alanine Aminotransferase (ALT/SGPT) 13 U/L (16-63) Alkaline Phosphatase 127 U/L (46-116) Total Protein 5.6 g/dL (6.4-8.2) Albumin 2.6 g/dL (3.4-5.0) Albumin/Globulin Ratio 0.9 (1.0-1.7) Test 04/29/17 21:53 04/30/17 06:50 Glucose (Fingerstick) 159 mg/dL (70-99) White Blood Count 9.7 x10^3/uL (4.0-11.0) Red Blood Count 2.86 x10^6/uL (4.30-5.70) Hemoglobin 8.2 g/dL (13.0-17.5) Hematocrit 25.0 % (39.0-53.0) Mean Corpuscular Volume 88 fL (79-100) Mean Corpuscular Hemoglobin 29 pg (25-35) Mean Corpuscular Hemoglobin Concent 33 g/dL (31-37) Red Cell Distribution Width 17.0 % (11.5-14.5) Platelet Count 202 x10^3/uL (140-400) Neutrophils (%) (Auto) 92 % (31-73) Lymphocytes (%) (Auto) 5 % (24-48) Monocytes (%) (Auto) 3 % (0-9) Eosinophils (%) (Auto) 0 % (0-3) Basophils (%) (Auto) 0 % (0-3) Neutrophils # (Auto) 8.9 x10^3uL (1.8-7.7) Lymphocytes # (Auto) 0.5 x10^3/uL (1.0-4.8) Monocytes # (Auto) 0.3 x10^3/uL (0.0-1.1) Eosinophils # (Auto) 0.0 x10^3/uL (0.0-0.7) Basophils # (Auto) 0.0 x10^3/uL (0.0-0.2) Prothrombin Time 25.6 SEC (11.7-14.0) Prothromb Time International Ratio 2.5 (0.8-1.1) Sodium Level 136 mmol/L (136-145) Potassium Level 5.1 mmol/L (3.5-5.1) Chloride Level 97 mmol/L (98-107) Carbon Dioxide Level 27 mmol/L (21-32) Anion Gap 12 (6-14) Blood Urea Nitrogen 34 mg/dL (8-26) Creatinine 4.6 mg/dL (0.7-1.3) Estimated GFR (Cockcroft-Gault) 13.1 Glucose Level 225 mg/dL (70-99) Calcium Level 7.8 mg/dL (8.5-10.1) 25-Hydroxy Vitamin D Total 10.3 ng/mL (30-100) Review of Systems Constitutional: yes: weakness, alert, oriented Ears/Nose/Throat: Yes: no symptom reported Pulmonary: Yes no symptom reported Cardiovascular: Yes no symptom reported Gastrointestional: Yes: constipation Genitourinary: Yes: no symptom reported Musculoskeletal: Yes: muscle stiffness Skin: Yes no symptom reported Psychiatric/Neurological: Yes: no symptom reported Endocrine: Yes: no symptom reported Physical Exam General Appearance: no apparent distress Skin: warm Respiratory: bilateral CTA Heart: S1S2 Abdomen: soft Genitourinary: bladder flat Extremities: pulses present Neurology: alert, oriented Assessment Assessment IMP ESRD ANEMIA DM II HTN S/P ORIF OF DISTAL FEMUR FX PLAN CONT ARANESP HD TODAY UF TO DONNY ENCISO MD Apr 30, 2017 11:40
[2017-04-30] MEDS: HYDROcodone/APAP 10/325 1 TAB TABLET PO PRN ×2 (11:55→18:13)
--- NOTE | 2017-04-30 15:55 | PDOC2 ---
CONSULT Date of Consult Date of Consult DATE: 04/30/17 TIME: 15:44 Reason for Consult Reason for Consult: Cardiac history Referring Physician Referring Physician: Dr. 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 He is already had multiple amputations. He came in with a leg that required surgery and there are some issues with healing. The patient is with end-stage renal disease and has been on dialysis. He needs valve surgery for his heart but he is not a surgical candidate. For some time he has been having all kinds of issues with recurrent infections and admissions to the hospital and he has had a very poor quality of life for the last 2 years. At this point he didn't have any cardiac complaints but that's probably about one of the few things that he did not complain about Past Medical History Cardiovascular: AFIB, CAD, CHF, HTN, Hyperlipidemia, Valve insufficiency, Pulmonary hypertension Pulmonary: Pulmonary embolus, Other GI: Constipation, Gastritis, Other Heme/Onc: Anemia NOS Renal/: Chronic renal failure Endocrine: Diabetes, Hyperparathyroidism Past Surgical History Past Surgical History: Tonsillectomy, Other Family History Family History: No Significant Social History ALCOHOL: none Drugs: None Lives: with Family Current Medications Current Medications Current Medications Acetaminophen/ Hydrocodone Bitart (Lortab 10/325) 1 tab PRN Q6HRS PRN PO PAIN Last administered on 04/30/17 11:55; Start 04/28/17 at 18:45 Atorvastatin Calcium (Lipitor) 40 mg DAILY PO Last administered on 04/30/17 09 :24; Start 04/29/17 at 09:00 Clonazepam (KlonoPIN) 0.5 mg PRN Q6HRS PRN PO ANXIETY / AGITATION; Start 04/28 at 21:15 Famotidine (Pepcid) 20 mg DAILY PO ; Start 04/29/17 at 09:00; Stop 04/29/17 at 14:04; Status DC Ferrous Sulfate (Feosol) 325 mg DAILY PO Last administered on 04/30/17 09:25; Start 04/29/17 at 09:00 Vitamin B Complex/ Vitamin C (Sapphire-Sara) 1 tab DAILY PO Last administered on 09:24; Start 04/29/17 at 09:00 Lisinopril (Prinivil) 10 mg DAILY PO ; Start 04/29/17 at 09:00 Oxycodone HCl (OxyCONTIN) 10 mg BID PO Last administered on 04/30/17 09:25; Start 04/29/17 at 09:00 Senna/Docusate Sodium (Senna Plus) 2 tab PRN DAILY PRN PO CONSTIPATION 1ST CHOICE; Start 04/28/17 at 21:15 Trazodone HCl (Desyrel) 50 mg PRN QHS PRN PO INSOMNIA Last administered on 21:50; Start 04/28/17 at 21:15 Calcium Carbonate/ Glycine (Tums) 500 mg TIDAC PO Last administered on 13:29; Start 04/29/17 at 07:30 Citalopram Hydrobromide (CeleXA) 20 mg DAILY PO Last administered on 04/30/17 09:25; Start 04/29/17 at 09:00 Insulin Detemir (Levemir) 22 units QHS SQ ; Start 04/29/17 at 21:00; Stop at 21:00; Status DC Insulin Aspart (NovoLOG) 2 units TIDAC SQ ; Start 04/29/17 at 07:30; Stop at 07:30; Status DC Pioglitazone HCl (Actos) 45 mg DAILY PO Last administered on 04/30/17 09:25; Start 04/29/17 at 09:00 Insulin Detemir (Levemir) 12 units QHS SQ ; Start 04/29/17 at 21:00 Insulin Aspart (NovoLOG) 0-5 UNITS TIDWMEALS SQ ; Start 04/29/17 at 08:00; Stop 04/29/17 at 14:05; Status DC Dextrose (Dextrose 50%-Water Syringe) 12.5 gm PRN Q15MIN PRN IV SEE COMMENTS; Start 04/28/17 at 22:00; Stop 04/29/17 at 12:17; Status DC Clonazepam (KlonoPIN) 0.5 mg TID PO Last administered on 04/30/17 13:30; Start 04/28/17 at 22:00 Diphenoxylate HCl/ Atropine (Lomotil) 1 tab PRN QID PRN PO DIARRHEA; Start at 22:00 Midodrine (Proamatine) 5 mg BIDBFRMEAL PO Last administered on 04/30/17 09:25 ; Start 04/29/17 at 07:30 Polyethylene Glycol (miraLAX PACKET) 17 gm PRN DAILY PRN PO CONSTIPATION; Start 04/28/17 at 22:00 Warfarin Sodium (Coumadin) 3 mg DAILY16 PO ; Start 04/29/17 at 16:00 Darbepoetin Noel (Aranesp) 60 mcg Th SQ Last administered on 04/29/17 22:11; Start 04/29/17 at 21:00 Ondansetron HCl (Zofran) 4 mg PRN Q4HRS PRN IV NAUSEA; Start 04/28/17 at 22:00 Warfarin Sodium (Coumadin Per Physician) 1 each PRN DAILY PRN MC SEE COMMENTS Last administered on 04/30/17 11:15; Start 04/28/17 at 22:15 Sodium Chloride 1,000 ml @ 1,000 mls/hr Q1H PRN IV hypotension; Start at 08:39; Stop 04/29/17 at 14:38; Status DC Albumin Human 200 ml @ 200 mls/hr 1X PRN PRN IV Hypotension; Start 04/29/17 at 08:45; Stop 04/29/17 at 14:44; Status DC Sodium Chloride 1,000 ml @ 400 mls/hr Q2H30M PRN IV PATENCY; Start 04/29/17 at 08:39; Stop 04/29/17 at 20:38; Status DC Info (PHARMACY MONITORING -- do not chart) 1 each PRN DAILY PRN MC SEE COMMENTS ; Start 04/29/17 at 08:45; Status UNV Info (PHARMACY MONITORING -- do not chart) 1 each PRN DAILY PRN MC SEE COMMENTS ; Start 04/29/17 at 08:45 Insulin Aspart (NovoLOG) 0-7 UNITS TIDWMEALS SQ ; Start 04/29/17 at 12:00 Dextrose (Dextrose 50%-Water Syringe) 12.5 gm PRN Q15MIN PRN IV SEE COMMENTS; Start 04/29/17 at 10:00 Darbepoetin Noel (Aranesp) 60 mcg WEEKLYHS SQ ; Start 04/29/17 at 21:00; Stop 04/29/17 at 21:00; Status DC Famotidine (Pepcid) 20 mg Q48H PO ; Start 05/01/17 at 09:00 Fentanyl Citrate (Fentanyl 2ml Vial) 12.5 mcg PRN Q3HRS PRN IM PAIN; Start at 14:15; Stop 04/29/17 at 14:34; Status DC Fentanyl Citrate (Fentanyl 2ml Vial) 12.5 mcg PRN Q3HRS PRN IV PAIN Last administered on 04/30/17t 13:29; Start 04/29/17 at 14:45 Propofol 20 ml @ As Directed STK-MED ONCE IV ; Start 04/29/17 at 15:45; Stop 04/29/17 at 15:46; Status DC Lidocaine HCl (Lidocaine Pf 2% Vial) 5 ml STK-MED ONCE .ROUTE ; Start 04/29/17 at 15:45; Stop 04/29/17 at 15:46; Status DC Succinylcholine Chloride (Anectine) 200 mg STK-MED ONCE .ROUTE ; Start at 15:46; Stop 04/29/17 at 15:47; Status DC Rocuronium Surveyor (Zemuron) 50 mg STK-MED ONCE .ROUTE ; Start 04/29/17 at 15: 46; Stop 04/29/17 at 15:47; Status DC Fentanyl Citrate (Fentanyl 2ml Vial) 100 mcg STK-MED ONCE .ROUTE ; Start at 15:46; Stop 04/29/17 at 15:47; Status DC Cefazolin Sodium/ Dextrose 50 ml @ As Directed STK-MED ONCE IV ; Start at 16:46; Stop 04/29/17 at 16:47; Status DC Ephedrine Sulfate (Akovaz) 50 mg STK-MED ONCE .ROUTE ; Start 04/29/17 at 16:47 ; Stop 04/29/17 at 16:48; Status DC Rocuronium Surveyor (Zemuron) 50 mg STK-MED ONCE .ROUTE ; Start 04/29/17 at 17: 23; Stop 04/29/17 at 17:24; Status DC Fentanyl Citrate (Fentanyl 2ml Vial) 100 mcg STK-MED ONCE .ROUTE ; Start at 17:23; Stop 04/29/17 at 17:24; Status DC Ondansetron HCl (Zofran) 4 mg STK-MED ONCE .ROUTE ; Start 04/29/17 at 17:32; Stop 04/29/17 at 17:33; Status DC Neostigmine Methylsulfate (Bloxiverz) 10 mg STK-MED ONCE .ROUTE ; Start at 17:32; Stop 04/29/17 at 17:33; Status DC Glycopyrrolate (Robinul) 1 mg STK-MED ONCE .ROUTE ; Start 04/29/17 at 17:33; Stop 04/29/17 at 17:34; Status DC Albumin Human 500 ml @ As Directed STK-MED ONCE IV ; Start 04/29/17 at 17:50; Stop 04/29/17 at 17:51; Status DC Vasopressin (Vasostrict) 20 unit STK-MED ONCE .ROUTE ; Start 04/29/17 at 17:53 ; Stop 04/29/17 at 17:54; Status DC Sodium Chloride (Sodium Chloride) 50 ml STK-MED ONCE IJ ; Start 04/29/17 at 17: 54; Stop 04/29/17 at 17:55; Status DC Phenylephrine HCl 80 mg/Sodium Chloride 258 ml @ 0 mls/hr CONT PRN IV SEE I/O RECORD Last administered on 04/29/17t 20:36; Start 04/29/17 at 20:30 Fentanyl Citrate (Fentanyl 2ml Vial) 25 mcg PRN Q5MIN PRN IV Acute Pain; Start 04/29/17 at 20:30; Stop 04/30/17 at 20:29 Fentanyl Citrate (Fentanyl 2ml Vial) 50 mcg PRN Q5MIN PRN IV Acute Pain; Start 04/29/17 at 20:30; Stop 04/30/17 at 20:29 Morphine Sulfate 2 mg PRN Q10MIN PRN IV Mild Pain; Start 04/29/17 at 20:30; Stop 04/30/17 at 20:29 Hydromorphone HCl (Dilaudid) 0.2 mg PRN Q10MIN PRN IV Mild pain; Start at 20:30; Stop 04/30/17 at 20:29 Ondansetron HCl (Zofran) 4 mg PRN Q6HRS PRN IV Nausea, 1st Choice; Start 04/29 at 20:30; Stop 04/30/17 at 20:29 Sodium Chloride 1,000 ml @ 1,000 mls/hr Q1H PRN IV hypotension; Start 04/30/17 at 08:33; Stop 04/30/17 at 14:32; Status DC Diphenhydramine HCl (Benadryl) 25 mg 1X PRN PRN IV ITCHING; Start 04/30/17 at 08:45; Stop 05/01/17 at 08:44 Diphenhydramine HCl (Benadryl) 25 mg 1X PRN PRN IV ITCHING; Start 04/30/17 at 08:45; Stop 05/01/17 at 08:44 Sodium Chloride 1,000 ml @ 400 mls/hr Q2H30M PRN IV PATENCY; Start 04/30/17 at 08:33; Stop 04/30/17 at 20:32 Info (PHARMACY MONITORING -- do not chart) 1 each PRN DAILY PRN MC SEE COMMENTS ; Start 04/30/17 at 08:45; Status UNV Active Scripts Active Hydrocodone-Apap 10-325 (Hydrocodone Bit/Acetaminophen) 1 Each Tablet 1 Tab PO PRN Q6HRS PRN 30 Days Senna-Time S Tablet (Sennosides/Docusate Sodium) 1 Each Tablet 2 Tab PO PRN DAILY PRN Reported Aranesp Syringe (Darbepoetin Noel In Polysorbat) 60 Mcg/0.3 Ml Disp.syrin 60 Mcg SQ WE@2100 Warfarin Sodium 3 Mg Tablet 1 Tab PO DAILY Midodrine Hcl 5 Mg Tablet 5 Mg PO BID at 10 and 18 Clonazepam 0.5 Mg Tablet 1 Tab PO TID [micro guard2% powd] TOP [moriah] Miralax (Polyethylene Glycol 3350) 17 Gm Powd.pack 1 Packet PO DAILY PRN Actos (Pioglitazone Hcl) 45 Mg Tablet 1 Tab PO DAILY Ondansetron HCl 4 mg/2 ml Syr (Ondansetron HCl/Pf) 4 Mg/2 Ml Syringe 4 Mg IV Q4HRS PRN Lomotil Tablet (Diphenoxylate Hcl/Atropine) 1 Each Tablet 1 Tab PO QID PRN Humalog (Insulin Lispro) 100 Unit/1 Ml Cartridge 0 SQ TIDAC sliding scale Lisinopril 10 Mg Tablet 10 Mg PO DAILY Oxycontin (Oxycodone HCl) 10 Mg Tab.er.12h 10 Mg PO BID Nephro-Sara Tablet (Folic Acid/Vitamin B Comp W-C) 0.8 Mg Tablet 0.8 Mg PO DAILY Ferrous Sulfate 325 Mg Tablet 325 Mg PO DAILY Famotidine 20 Mg Tablet 20 Mg PO DAILY Clonazepam 0.5 Mg Tablet 0.5 Mg PO Q6HRS PRN Escitalopram Oxalate 10 Mg Tablet 10 Mg PO DAILY Lantus Solostar (Insulin Glargine,Hum.rec.anlog) 100 Unit/1 Ml Insuln.pen 12 Units SQ QHS Trazodone Hcl 50 Mg Tablet 50 Mg PO PRN QHS PRN Actos (Pioglitazone Hcl) 45 Mg Tablet 1 Tab PO DAILY Tums (Calcium Carbonate) 300 Mg Tab.chew 300 Mg PO TIDAC Atorvastatin Calcium 20 Mg Tablet 40 Mg PO DAILY Allergies Allergies: Coded Allergies: I S O L A T I O N *CONTACT* (Verified Allergy, Unknown, 04/29/17) mrsa + No Known Medication Allergies (Verified Allergy, Unknown, 04/29/17) Physical Exam General: Alert, Oriented X3, Cooperative HEENT: PERRLA Lungs: Normal air movement Heart: Other (regular rate and rhythm S1-S2 2/6 systolic murmur. 1 to 2/6 diastolic murmur.) Abdomen: Normal bowel sounds, Soft Extremities: Other (right leg has been amputated and there is a dressing over the stump from an area that is infected. The left leg is in a dressing that covers the leg and foot below the knee. The left hand and wrist are completely dressed.) Vitals VITALS Vital Signs Date Time Temp Pulse Resp B/P (MAP) Pulse Ox O2 Delivery O2 Flow Rate FiO2 04/30/17 15:00 82 16 78/39 (52) 95 Nasal Cannula 4.0 04/30/17 12:00 97.8 97.8 Labs Labs Laboratory Tests Test 04/28/17 20:00 04/28/17 21:22 04/29/17 05:20 04/29/17 08:50 Nasal Screen MRSA (PCR) Negative (Negative) Glucose (Fingerstick) 104 mg/dL (70-99) White Blood Count 7.1 x10^3/uL (4.0-11.0) Red Blood Count 2.67 x10^6/uL (4.30-5.70) Hemoglobin 7.8 g/dL (13.0-17.5) Hematocrit 24.5 % (39.0-53.0) Mean Corpuscular Volume 92 fL (79-100) Mean Corpuscular Hemoglobin 29 pg (25-35) Mean Corpuscular Hemoglobin Concent 32 g/dL (31-37) Red Cell Distribution Width 17.4 % (11.5-14.5) Platelet Count 256 x10^3/uL (140-400) Neutrophils (%) (Auto) 67 % (31-73) Lymphocytes (%) (Auto) 16 % (24-48) Monocytes (%) (Auto) 8 % (0-9) Eosinophils (%) (Auto) 6 % (0-3) Basophils (%) (Auto) 2 % (0-3) Neutrophils # (Auto) 4.7 x10^3uL (1.8-7.7) Lymphocytes # (Auto) 1.1 x10^3/uL (1.0-4.8) Monocytes # (Auto) 0.6 x10^3/uL (0.0-1.1) Eosinophils # (Auto) 0.5 x10^3/uL (0.0-0.7) Basophils # (Auto) 0.2 x10^3/uL (0.0-0.2) Prothrombin Time 25.6 SEC (11.7-14.0) Prothromb Time International Ratio 2.5 (0.8-1.1) Sodium Level 137 mmol/L (136-145) Potassium Level 4.8 mmol/L (3.5-5.1) Chloride Level 99 mmol/L (98-107) Carbon Dioxide Level 30 mmol/L (21-32) Anion Gap 8 (6-14) Blood Urea Nitrogen 52 mg/dL (8-26) Creatinine 6.7 mg/dL (0.7-1.3) Estimated GFR (Cockcroft-Gault) 8.5 Glucose Level 95 mg/dL (70-99) Calcium Level 8.5 mg/dL (8.5-10.1) Hepatitis B Surface Antigen Negative (Negative) Hepatitis B Surface Antibody Non reactive (.) Test 04/29/17 14:05 04/29/17 18:00 04/29/17 19:04/29/17 20:30 Glucose (Fingerstick) 77 mg/dL (70-99) 121 mg/dL (70-99) White Blood Count 6.6 x10^3/uL (4.0-11.0) 12.7 x10^3/uL (4.0-11.0) Hemoglobin 6.9 g/dL (13.0-17.5) 8.7 g/dL (13.0-17.5) Hematocrit 21.2 % (39.0-53.0) 26.4 % (39.0-53.0) Platelet Count 232 x10^3/uL (140-400) 165 x10^3/uL (140-400) Prothrombin Time 22.2 SEC (11.7-14.0) 25.4 SEC (11.7-14.0) Prothromb Time International Ratio 2.1 (0.8-1.1) 2.5 (0.8-1.1) Activated Partial Thromboplast Time 48 SEC (24-38) Red Blood Count 2.99 x10^6/uL (4.30-5.70) Mean Corpuscular Volume 88 fL (79-100) Mean Corpuscular Hemoglobin 29 pg (25-35) Mean Corpuscular Hemoglobin Concent 33 g/dL (31-37) Red Cell Distribution Width 17.2 % (11.5-14.5) Neutrophils (%) (Auto) 97 % (31-73) Lymphocytes (%) (Auto) 2 % (24-48) Monocytes (%) (Auto) 1 % (0-9) Eosinophils (%) (Auto) 0 % (0-3) Basophils (%) (Auto) 1 % (0-3) Neutrophils # (Auto) 12.3 x10^3uL (1.8-7.7) Lymphocytes # (Auto) 0.2 x10^3/uL (1.0-4.8) Monocytes # (Auto) 0.1 x10^3/uL (0.0-1.1) Eosinophils # (Auto) 0.0 x10^3/uL (0.0-0.7) Basophils # (Auto) 0.1 x10^3/uL (0.0-0.2) Segmented Neutrophils % 89 % (35-66) Band Neutrophils % 7 % (0-9) Lymphocytes % 3 % (24-48) Monocytes % 1 % (0-10) Platelet Estimate Adequate (ADEQUATE) Poikilocytosis Slight Anisocytosis Slight Central Cells Few Schistocytes Occ Sodium Level 138 mmol/L (136-145) Potassium Level 4.6 mmol/L (3.5-5.1) Chloride Level 99 mmol/L (98-107) Carbon Dioxide Level 26 mmol/L (21-32) Anion Gap 13 (6-14) Blood Urea Nitrogen 27 mg/dL (8-26) Creatinine 3.9 mg/dL (0.7-1.3) Estimated GFR (Cockcroft-Gault) 15.9 BUN/Creatinine Ratio 7 (6-20) Glucose Level 162 mg/dL (70-99) Calcium Level 7.8 mg/dL (8.5-10.1) Total Bilirubin 1.2 mg/dL (0.2-1.0) Aspartate Amino Transf (AST/SGOT) 26 U/L (15-37) Alanine Aminotransferase (ALT/SGPT) 13 U/L (16-63) Alkaline Phosphatase 127 U/L (46-116) Total Protein 5.6 g/dL (6.4-8.2) Albumin 2.6 g/dL (3.4-5.0) Albumin/Globulin Ratio 0.9 (1.0-1.7) Test 04/29/17 21:53 04/30/17 06:50 04/30/17 13:13 Glucose (Fingerstick) 159 mg/dL (70-99) 127 mg/dL (70-99) White Blood Count 9.7 x10^3/uL (4.0-11.0) Red Blood Count 2.86 x10^6/uL (4.30-5.70) Hemoglobin 8.2 g/dL (13.0-17.5) Hematocrit 25.0 % (39.0-53.0) Mean Corpuscular Volume 88 fL (79-100) Mean Corpuscular Hemoglobin 29 pg (25-35) Mean Corpuscular Hemoglobin Concent 33 g/dL (31-37) Red Cell Distribution Width 17.0 % (11.5-14.5) Platelet Count 202 x10^3/uL (140-400) Neutrophils (%) (Auto) 92 % (31-73) Lymphocytes (%) (Auto) 5 % (24-48) Monocytes (%) (Auto) 3 % (0-9) Eosinophils (%) (Auto) 0 % (0-3) Basophils (%) (Auto) 0 % (0-3) Neutrophils # (Auto) 8.9 x10^3uL (1.8-7.7) Lymphocytes # (Auto) 0.5 x10^3/uL (1.0-4.8) Monocytes # (Auto) 0.3 x10^3/uL (0.0-1.1) Eosinophils # (Auto) 0.0 x10^3/uL (0.0-0.7) Basophils # (Auto) 0.0 x10^3/uL (0.0-0.2) Prothrombin Time 25.6 SEC (11.7-14.0) Prothromb Time International Ratio 2.5 (0.8-1.1) Sodium Level 136 mmol/L (136-145) Potassium Level 5.1 mmol/L (3.5-5.1) Chloride Level 97 mmol/L (98-107) Carbon Dioxide Level 27 mmol/L (21-32) Anion Gap 12 (6-14) Blood Urea Nitrogen 34 mg/dL (8-26) Creatinine 4.6 mg/dL (0.7-1.3) Estimated GFR (Cockcroft-Gault) 13.1 Glucose Level 225 mg/dL (70-99) Calcium Level 7.8 mg/dL (8.5-10.1) 25-Hydroxy Vitamin D Total 10.3 ng/mL (30-100) Laboratory Tests Test 04/29/17 18:00 04/29/17 19:27 04/29/17 20:30 04/29/17 21:53 White Blood Count 6.6 x10^3/uL (4.0-11.0) 12.7 x10^3/uL (4.0-11.0) Hemoglobin 6.9 g/dL (13.0-17.5) 8.7 g/dL (13.0-17.5) Hematocrit 21.2 % (39.0-53.0) 26.4 % (39.0-53.0) Platelet Count 232 x10^3/uL (140-400) 165 x10^3/uL (140-400) Prothrombin Time 22.2 SEC (11.7-14.0) 25.4 SEC (11.7-14.0) Prothromb Time International Ratio 2.1 (0.8-1.1) 2.5 (0.8-1.1) Activated Partial Thromboplast Time 48 SEC (24-38) Glucose (Fingerstick) 121 mg/dL (70-99) 159 mg/dL (70-99) Red Blood Count 2.99 x10^6/uL (4.30-5.70) Mean Corpuscular Volume 88 fL (79-100) Mean Corpuscular Hemoglobin 29 pg (25-35) Mean Corpuscular Hemoglobin Concent 33 g/dL (31-37) Red Cell Distribution Width 17.2 % (11.5-14.5) Neutrophils (%) (Auto) 97 % (31-73) Lymphocytes (%) (Auto) 2 % (24-48) Monocytes (%) (Auto) 1 % (0-9) Eosinophils (%) (Auto) 0 % (0-3) Basophils (%) (Auto) 1 % (0-3) Neutrophils # (Auto) 12.3 x10^3uL (1.8-7.7) Lymphocytes # (Auto) 0.2 x10^3/uL (1.0-4.8) Monocytes # (Auto) 0.1 x10^3/uL (0.0-1.1) Eosinophils # (Auto) 0.0 x10^3/uL (0.0-0.7) Basophils # (Auto) 0.1 x10^3/uL (0.0-0.2) Segmented Neutrophils % 89 % (35-66) Band Neutrophils % 7 % (0-9) Lymphocytes % 3 % (24-48) Monocytes % 1 % (0-10) Platelet Estimate Adequate (ADEQUATE) Poikilocytosis Slight Anisocytosis Slight Central Cells Few Schistocytes Occ Sodium Level 138 mmol/L (136-145) Potassium Level 4.6 mmol/L (3.5-5.1) Chloride Level 99 mmol/L (98-107) Carbon Dioxide Level 26 mmol/L (21-32) Anion Gap 13 (6-14) Blood Urea Nitrogen 27 mg/dL (8-26) Creatinine 3.9 mg/dL (0.7-1.3) Estimated GFR (Cockcroft-Gault) 15.9 BUN/Creatinine Ratio 7 (6-20) Glucose Level 162 mg/dL (70-99) Calcium Level 7.8 mg/dL (8.5-10.1) Total Bilirubin 1.2 mg/dL (0.2-1.0) Aspartate Amino Transf (AST/SGOT) 26 U/L (15-37) Alanine Aminotransferase (ALT/SGPT) 13 U/L (16-63) Alkaline Phosphatase 127 U/L (46-116) Total Protein 5.6 g/dL (6.4-8.2) Albumin 2.6 g/dL (3.4-5.0) Albumin/Globulin Ratio 0.9 (1.0-1.7) Test 04/30/17 06:50 04/30/17 13:13 White Blood Count 9.7 x10^3/uL (4.0-11.0) Red Blood Count 2.86 x10^6/uL (4.30-5.70) Hemoglobin 8.2 g/dL (13.0-17.5) Hematocrit 25.0 % (39.0-53.0) Mean Corpuscular Volume 88 fL (79-100) Mean Corpuscular Hemoglobin 29 pg (25-35) Mean Corpuscular Hemoglobin Concent 33 g/dL (31-37) Red Cell Distribution Width 17.0 % (11.5-14.5) Platelet Count 202 x10^3/uL (140-400) Neutrophils (%) (Auto) 92 % (31-73) Lymphocytes (%) (Auto) 5 % (24-48) Monocytes (%) (Auto) 3 % (0-9) Eosinophils (%) (Auto) 0 % (0-3) Basophils (%) (Auto) 0 % (0-3) Neutrophils # (Auto) 8.9 x10^3uL (1.8-7.7) Lymphocytes # (Auto) 0.5 x10^3/uL (1.0-4.8) Monocytes # (Auto) 0.3 x10^3/uL (0.0-1.1) Eosinophils # (Auto) 0.0 x10^3/uL (0.0-0.7) Basophils # (Auto) 0.0 x10^3/uL (0.0-0.2) Prothrombin Time 25.6 SEC (11.7-14.0) Prothromb Time International Ratio 2.5 (0.8-1.1) Sodium Level 136 mmol/L (136-145) Potassium Level 5.1 mmol/L (3.5-5.1) Chloride Level 97 mmol/L (98-107) Carbon Dioxide Level 27 mmol/L (21-32) Anion Gap 12 (6-14) Blood Urea Nitrogen 34 mg/dL (8-26) Creatinine 4.6 mg/dL (0.7-1.3) Estimated GFR (Cockcroft-Gault) 13.1 Glucose Level 225 mg/dL (70-99) Calcium Level 7.8 mg/dL (8.5-10.1) 25-Hydroxy Vitamin D Total 10.3 ng/mL (30-100) Glucose (Fingerstick) 127 mg/dL (70-99) Assessment/Plan Assessment/Plan This patient is a vasculopath diabetic patient with valvular heart disease and end-stage renal disease that is on dialysis and has had multiple amputations. At this point he is compensated cardiac-vazquez. I have no new recommendations from a heart standpoint. However I have had a lengthy discussion with the patient about his situation, prognosis, and options. He has had a very poor quality of life and if things continue the way they are we are just going to continue with further amputations. At the present time the patient states that he does not want any more surgeries. After discussing this at length my recommendation is to continue with medical treatment. No further surgeries. Continue with dialysis until after the New Year 's and then at that point consider stopping dialysis and keeping him on comfort measures only. The patient and the family agree with this approach. Thank you very much for asking me to participate in the care of this patient. JARON RAMOS MD Apr 30, 2017 15:55
--- NOTE | 2017-04-30 16:04 | PDOC ---
PROGRESS NOTES Subjective Subjective transferred to ICU after surgery yesterday Objective Objective Vital Signs Date Time Temp Pulse Resp B/P (MAP) Pulse Ox O2 Delivery O2 Flow Rate FiO2 04/30/17 15:00 82 16 78/39 (52) 95 Nasal Cannula 4.0 04/30/17 12:00 97.8 97.8 Intake and Output 04/30/17 07:00 Intake Total 1149 ml Output Total 0 ml Balance 1149 ml Intake Oral 480 ml IV Total 31 ml Blood Product IV Normal Saline Flush 638 ml Output Urine Total 0 ml # Bowel Movements 1 Physical Exam Abdomen: Normal bowel sounds, Soft Heart: Regular rate, Normal S1, Normal S2, Other (regular rate and rhythm S1- S2 2/6 systolic murmur. 1 to 2/6 diastolic murmur.) Extremities: No clubbing, Other (right leg has been amputated and there is a dressing over the stump from an area that is infected. The left leg is in a dressing that covers the leg and foot below the knee. The left hand and wrist are completely dressed.) General: Alert, Oriented X3, Cooperative HEENT: PERRLA Lungs: Normal air movement MUSCULOSKELETAL: Other Neck: No JVD Neuro: Normal speech Psych/Mental Status: Mental status NL Assessment Assessment FINAL IMPRESSION: Hypotension on pressors levophed 1. Shifting of the distal femoral fragment. The patient had intramedullary nailing done earlier this month, is going to go for revision. 2. End-stage renal disease, on hemodialysis. 3. Insulin-dependent diabetes. 4. Right [id number] amputation. 5. Congestive heart failure, chronic, systolic.30% EJF 6. Chronic atrial fibrillation, on Coumadin. PLAN: Lt femur surgery.Operative procedure: Operative reduction internal fixation left distal femur fracture, 04/29/17 Pt transferred to ICU recieved 5 u prbc+3 uffp levophed to maintain BP dialysis today. pt donot want code blue spoke with staff Problems: Comment Review of Relevant I have reviewed the following items maria teresa (where applicable) has been applied. Labs Laboratory Tests Test 04/29/17 18:00 04/29/17 19:27 04/29/17 20:30 04/29/17 21:53 White Blood Count 6.6 x10^3/uL (4.0-11.0) 12.7 x10^3/uL (4.0-11.0) Hemoglobin 6.9 g/dL (13.0-17.5) 8.7 g/dL (13.0-17.5) Hematocrit 21.2 % (39.0-53.0) 26.4 % (39.0-53.0) Platelet Count 232 x10^3/uL (140-400) 165 x10^3/uL (140-400) Prothrombin Time 22.2 SEC (11.7-14.0) 25.4 SEC (11.7-14.0) Prothromb Time International Ratio 2.1 (0.8-1.1) 2.5 (0.8-1.1) Activated Partial Thromboplast Time 48 SEC (24-38) Glucose (Fingerstick) 121 mg/dL (70-99) 159 mg/dL (70-99) Red Blood Count 2.99 x10^6/uL (4.30-5.70) Mean Corpuscular Volume 88 fL (79-100) Mean Corpuscular Hemoglobin 29 pg (25-35) Mean Corpuscular Hemoglobin Concent 33 g/dL (31-37) Red Cell Distribution Width 17.2 % (11.5-14.5) Neutrophils (%) (Auto) 97 % (31-73) Lymphocytes (%) (Auto) 2 % (24-48) Monocytes (%) (Auto) 1 % (0-9) Eosinophils (%) (Auto) 0 % (0-3) Basophils (%) (Auto) 1 % (0-3) Neutrophils # (Auto) 12.3 x10^3uL (1.8-7.7) Lymphocytes # (Auto) 0.2 x10^3/uL (1.0-4.8) Monocytes # (Auto) 0.1 x10^3/uL (0.0-1.1) Eosinophils # (Auto) 0.0 x10^3/uL (0.0-0.7) Basophils # (Auto) 0.1 x10^3/uL (0.0-0.2) Segmented Neutrophils % 89 % (35-66) Band Neutrophils % 7 % (0-9) Lymphocytes % 3 % (24-48) Monocytes % 1 % (0-10) Platelet Estimate Adequate (ADEQUATE) Poikilocytosis Slight Anisocytosis Slight [place] Cells Few Schistocytes Occ Sodium Level 138 mmol/L (136-145) Potassium Level 4.6 mmol/L (3.5-5.1) Chloride Level 99 mmol/L (98-107) Carbon Dioxide Level 26 mmol/L (21-32) Anion Gap 13 (6-14) Blood Urea Nitrogen 27 mg/dL (8-26) Creatinine 3.9 mg/dL (0.7-1.3) Estimated GFR (Cockcroft-Gault) 15.9 BUN/Creatinine Ratio 7 (6-20) Glucose Level 162 mg/dL (70-99) Calcium Level 7.8 mg/dL (8.5-10.1) Total Bilirubin 1.2 mg/dL (0.2-1.0) Aspartate Amino Transf (AST/SGOT) 26 U/L (15-37) Alanine Aminotransferase (ALT/SGPT) 13 U/L (16-63) Alkaline Phosphatase 127 U/L (46-116) Total Protein 5.6 g/dL (6.4-8.2) Albumin 2.6 g/dL (3.4-5.0) Albumin/Globulin Ratio 0.9 (1.0-1.7) Test 04/30/17 06:50 04/30/17 13:13 White Blood Count 9.7 x10^3/uL (4.0-11.0) Red Blood Count 2.86 x10^6/uL (4.30-5.70) Hemoglobin 8.2 g/dL (13.0-17.5) Hematocrit 25.0 % (39.0-53.0) Mean Corpuscular Volume 88 fL (79-100) Mean Corpuscular Hemoglobin 29 pg (25-35) Mean Corpuscular Hemoglobin Concent 33 g/dL (31-37) Red Cell Distribution Width 17.0 % (11.5-14.5) Platelet Count 202 x10^3/uL (140-400) Neutrophils (%) (Auto) 92 % (31-73) Lymphocytes (%) (Auto) 5 % (24-48) Monocytes (%) (Auto) 3 % (0-9) Eosinophils (%) (Auto) 0 % (0-3) Basophils (%) (Auto) 0 % (0-3) Neutrophils # (Auto) 8.9 x10^3uL (1.8-7.7) Lymphocytes # (Auto) 0.5 x10^3/uL (1.0-4.8) Monocytes # (Auto) 0.3 x10^3/uL (0.0-1.1) Eosinophils # (Auto) 0.0 x10^3/uL (0.0-0.7) Basophils # (Auto) 0.0 x10^3/uL (0.0-0.2) Prothrombin Time 25.6 SEC (11.7-14.0) Prothromb Time International Ratio 2.5 (0.8-1.1) Sodium Level 136 mmol/L (136-145) Potassium Level 5.1 mmol/L (3.5-5.1) Chloride Level 97 mmol/L (98-107) Carbon Dioxide Level 27 mmol/L (21-32) Anion Gap 12 (6-14) Blood Urea Nitrogen 34 mg/dL (8-26) Creatinine 4.6 mg/dL (0.7-1.3) Estimated GFR (Cockcroft-Gault) 13.1 Glucose Level 225 mg/dL (70-99) Calcium Level 7.8 mg/dL (8.5-10.1) 25-Hydroxy Vitamin D Total 10.3 ng/mL (30-100) Glucose (Fingerstick) 127 mg/dL (70-99) Medications Current Medications Albumin Human 500 ml @ As Directed STK-MED ONCE IV ; Start 04/29/17 at 17:50; Stop 04/29/17 at 17:51; Status DC Cefazolin Sodium/ Dextrose 50 ml @ As Directed STK-MED ONCE IV ; Start at 16:46; Stop 04/29/17 at 16:47; Status DC Darbepoetin Noel (Aranesp) 60 mcg Th SQ Last administered on 04/29/17t 22:11; Start 04/29/17 at 21:00 Darbepoetin Noel (Aranesp) 60 mcg WEEKLYHS SQ ; Start 04/29/17 at 21:00; Stop 04/29/17 at 21:00; Status DC Diphenhydramine HCl (Benadryl) 25 mg 1X PRN PRN IV ITCHING; Start 04/30/17 at 08:45; Stop 05/01/17 at 08:44 Diphenhydramine HCl (Benadryl) 25 mg 1X PRN PRN IV ITCHING; Start 04/30/17 at 08:45; Stop 05/01/17 at 08:44 Ephedrine Sulfate (Akovaz) 50 mg STK-MED ONCE .ROUTE ; Start 04/29/17 at 16:47 ; Stop 04/29/17 at 16:48; Status DC Famotidine (Pepcid) 20 mg Q48H PO ; Start 05/01/17 at 09:00 Fentanyl Citrate (Fentanyl 2ml Vial) 25 mcg PRN Q5MIN PRN IV Acute Pain; Start 04/29/17 at 20:30; Stop 04/30/17 at 20:29 Fentanyl Citrate (Fentanyl 2ml Vial) 50 mcg PRN Q5MIN PRN IV Acute Pain; Start 04/29/17 at 20:30; Stop 04/30/17 at 20:29 Fentanyl Citrate (Fentanyl 2ml Vial) 100 mcg STK-MED ONCE .ROUTE ; Start at 17:23; Stop 04/29/17 at 17:24; Status DC Glycopyrrolate (Robinul) 1 mg STK-MED ONCE .ROUTE ; Start 04/29/17 at 17:33; Stop 04/29/17 at 17:34; Status DC Hydromorphone HCl (Dilaudid) 0.2 mg PRN Q10MIN PRN IV Mild pain; Start at 20:30; Stop 04/30/17 at 20:29 Info (PHARMACY MONITORING -- do not chart) 1 each PRN DAILY PRN MC SEE COMMENTS ; Start 04/30/17 at 08:45; Status UNV Insulin Detemir (Levemir) 12 units QHS SQ ; Start 04/29/17 at 21:00 Insulin Detemir (Levemir) 22 units QHS SQ ; Start 04/29/17 at 21:00; Stop at 21:00; Status DC Morphine Sulfate 2 mg PRN Q10MIN PRN IV Mild Pain; Start 04/29/17 at 20:30; Stop 04/30/17 at 20:29 Neostigmine Methylsulfate (Bloxiverz) 10 mg STK-MED ONCE .ROUTE ; Start at 17:32; Stop 04/29/17 at 17:33; Status DC Ondansetron HCl (Zofran) 4 mg PRN Q6HRS PRN IV Nausea, 1st Choice; Start 04/29 at 20:30; Stop 04/30/17 at 20:29 Ondansetron HCl (Zofran) 4 mg STK-MED ONCE .ROUTE ; Start 04/29/17 at 17:32; Stop 04/29/17 at 17:33; Status DC Phenylephrine HCl 80 mg/Sodium Chloride 258 ml @ 0 mls/hr CONT PRN IV SEE I/O RECORD Last administered on 04/29/17t 20:36; Start 04/29/17 at 20:30 Rocuronium [place] (Zemuron) 50 mg STK-MED ONCE .ROUTE ; Start 04/29/17 at 17: 23; Stop 04/29/17 at 17:24; Status DC Sodium Chloride 1,000 ml @ 400 mls/hr Q2H30M PRN IV PATENCY; Start 04/30/17 at 08:33; Stop 04/30/17 at 20:32 Sodium Chloride 1,000 ml @ 1,000 mls/hr Q1H PRN IV hypotension; Start 04/30/17 at 08:33; Stop 04/30/17 at 14:32; Status DC Sodium Chloride (Sodium Chloride) 50 ml STK-MED ONCE IJ ; Start 04/29/17 at 17: 54; Stop 04/29/17 at 17:55; Status DC Vasopressin (Vasostrict) 20 unit STK-MED ONCE .ROUTE ; Start 04/29/17 at 17:53 ; Stop 04/29/17 at 17:54; Status DC Vitals/I & O Vital Sign - Last 24 Hours 04/29/17 04/29/17 04/29/17 04/29/17 19:25 19:30 19:40 19:55 Temp 101.7 101.7 Pulse 84 84 84 Resp 20 20 22 B/P (MAP) 118/52 109/52 84/45 Pulse Ox 94 94 94 O2 Delivery Nasal Cannula Nasal Cannula Nasal Cannula Nasal Cannula O2 Flow Rate 4.0 4 4 04/29/17 04/29/17 04/29/17 04/29/17 20:00 20:09 20:15 20:30 Pulse 84 89 88 86 Resp 12 20 22 20 B/P (MAP) 92/49 (63) 67/41 84/45 74/41 Pulse Ox 100 96 100 100 O2 Delivery Nasal Cannula Nasal Cannula Nasal Cannula Nasal Cannula O2 Flow Rate 4.0 4 4 4 04/29/17 04/29/17 04/29/17 04/29/17 20:45 21:49 22:00 23:00 Pulse 86 85 90 Resp 20 16 10 22 B/P (MAP) 92/46 114/39 (64) 91/46 (61) Pulse Ox 99 100 100 100 O2 Delivery Nasal Cannula Nasal Cannula Nasal Cannula Nasal Cannula O2 Flow Rate 4 4.0 4.0 4.0 04/30/17 04/30/17 04/30/17 04/30/17 00:00 00:00 00:24 00:54 Temp 98.1 98.1 Pulse 84 Resp 16 23 16 B/P (MAP) 99/47 (64) Pulse Ox 96 96 94 O2 Delivery BiPAP/CPAP Nasal Cannula BiPAP/CPAP BiPAP/CPAP O2 Flow Rate 3.0 4.0 3.0 3.0 04/30/17 04/30/17 04/30/17 04/30/17 01:00 01:50 02:00 03:00 Pulse 81 81 76 Resp 16 18 18 15 B/P (MAP) 96/45 (62) 101/50 (67) 95/47 (63) Pulse Ox 94 96 96 94 O2 Delivery BiPAP/CPAP BiPAP/CPAP BiPAP/CPAP BiPAP/CPAP O2 Flow Rate 3.0 3.0 3.0 3.0 04/30/17 04/30/17 04/30/17 04/30/17 04:00 04:00 05:00 06:00 Temp 98.3 98.3 Pulse 77 74 74 Resp 15 26 17 B/P (MAP) 101/49 (66) 102/49 (66) 110/53 (72) Pulse Ox 94 92 100 O2 Delivery BiPAP/CPAP Nasal Cannula BiPAP/CPAP Nasal Cannula O2 Flow Rate 3.0 3.0 3.0 4.0 04/30/17 04/30/17 04/30/17 04/30/17 07:00 08:00 08:00 09:00 Temp 97.6 97.6 Pulse 76 74 74 Resp 14 15 B/P (MAP) 116/54 (74) 113/55 (74) 141/61 (87) Pulse Ox 99 99 O2 Delivery Nasal Cannula Nasal Cannula Nasal Cannula Nasal Cannula O2 Flow Rate 4.0 4.0 3.0 4.0 04/30/17 04/30/17 04/30/17 04/30/17 09:24 09:25 09:25 10:00 Pulse 74 70 Resp 16 B/P (MAP) 110/53 98/43 (61) Pulse Ox 100 100 100 O2 Delivery Nasal Cannula Nasal Cannula Nasal Cannula O2 Flow Rate 4.0 4.0 4.0 04/30/17 04/30/17 04/30/17 04/30/17 11:00 12:00 12:00 13:00 Temp 97.8 97.8 Pulse 68 70 70 Resp 13 15 13 B/P (MAP) 106/52 (70) 106/55 (72) 111/53 (72) Pulse Ox 100 98 99 O2 Delivery Nasal Cannula Nasal Cannula Nasal Cannula Nasal Cannula O2 Flow Rate 4.0 4.0 3.0 4.0 04/30/17 04/30/17 14:00 15:00 Pulse 74 82 Resp 21 16 B/P (MAP) 91/48 (62) 78/39 (52) Pulse Ox 100 95 O2 Delivery Nasal Cannula Nasal Cannula O2 Flow Rate 4.0 4.0 Intake and Output 04/29/17 04/29/17 04/30/17 15:00 23:00 07:00 Intake Total 338 ml 300 ml 511 ml Output Total 0 ml 0 ml Balance 338 ml 300 ml 511 ml RADHA MEYER MD Apr 30, 2017 16:04
[2017-04-30] MEDS: WARFARIN 3 MG TABLET. PO SCH (17:33)
--- NOTE | 2017-04-30 18:47 | PDOC ---
PROGRESS NOTES Subjective Subjective Problems overnight: Doing much better today patient currently undergoing dialysis is awake and alert pain well controlled no other complaints Objective Vital Signs Vital Signs Date Time Temp Pulse Resp B/P (MAP) Pulse Ox O2 Delivery O2 Flow Rate FiO2 04/30/17 18:00 80 16 101/48 (65) 95 Nasal Cannula 4.0 04/30/17 16:00 98.3 98.3 Physical Exam Exam the left lower extremity reveals dressings clean dry intact distal neurovascular status at baseline Labs Laboratory Tests Test 04/28/17 20:00 04/28/17 21:22 04/29/17 05:20 04/29/17 08:50 Nasal Screen MRSA (PCR) Negative (Negative) Glucose (Fingerstick) 104 mg/dL (70-99) White Blood Count 7.1 x10^3/uL (4.0-11.0) Red Blood Count 2.67 x10^6/uL (4.30-5.70) Hemoglobin 7.8 g/dL (13.0-17.5) Hematocrit 24.5 % (39.0-53.0) Mean Corpuscular Volume 92 fL (79-100) Mean Corpuscular Hemoglobin 29 pg (25-35) Mean Corpuscular Hemoglobin Concent 32 g/dL (31-37) Red Cell Distribution Width 17.4 % (11.5-14.5) Platelet Count 256 x10^3/uL (140-400) Neutrophils (%) (Auto) 67 % (31-73) Lymphocytes (%) (Auto) 16 % (24-48) Monocytes (%) (Auto) 8 % (0-9) Eosinophils (%) (Auto) 6 % (0-3) Basophils (%) (Auto) 2 % (0-3) Neutrophils # (Auto) 4.7 x10^3uL (1.8-7.7) Lymphocytes # (Auto) 1.1 x10^3/uL (1.0-4.8) Monocytes # (Auto) 0.6 x10^3/uL (0.0-1.1) Eosinophils # (Auto) 0.5 x10^3/uL (0.0-0.7) Basophils # (Auto) 0.2 x10^3/uL (0.0-0.2) Prothrombin Time 25.6 SEC (11.7-14.0) Prothromb Time International Ratio 2.5 (0.8-1.1) Sodium Level 137 mmol/L (136-145) Potassium Level 4.8 mmol/L (3.5-5.1) Chloride Level 99 mmol/L (98-107) Carbon Dioxide Level 30 mmol/L (21-32) Anion Gap 8 (6-14) Blood Urea Nitrogen 52 mg/dL (8-26) Creatinine 6.7 mg/dL (0.7-1.3) Estimated GFR (Cockcroft-Gault) 8.5 Glucose Level 95 mg/dL (70-99) Calcium Level 8.5 mg/dL (8.5-10.1) Hepatitis B Surface Antigen Negative (Negative) Hepatitis B Surface Antibody Non reactive (.) Test 04/29/17 14:05 04/29/17 18:00 04/29/17 19:27 04/29/17 20:30 Glucose (Fingerstick) 77 mg/dL (70-99) 121 mg/dL (70-99) White Blood Count 6.6 x10^3/uL (4.0-11.0) 12.7 x10^3/uL (4.0-11.0) Hemoglobin 6.9 g/dL (13.0-17.5) 8.7 g/dL (13.0-17.5) Hematocrit 21.2 % (39.0-53.0) 26.4 % (39.0-53.0) Platelet Count 232 x10^3/uL (140-400) 165 x10^3/uL (140-400) Prothrombin Time 22.2 SEC (11.7-14.0) 25.4 SEC (11.7-14.0) Prothromb Time International Ratio 2.1 (0.8-1.1) 2.5 (0.8-1.1) Activated Partial Thromboplast Time 48 SEC (24-38) Red Blood Count 2.99 x10^6/uL (4.30-5.70) Mean Corpuscular Volume 88 fL (79-100) Mean Corpuscular Hemoglobin 29 pg (25-35) Mean Corpuscular Hemoglobin Concent 33 g/dL (31-37) Red Cell Distribution Width 17.2 % (11.5-14.5) Neutrophils (%) (Auto) 97 % (31-73) Lymphocytes (%) (Auto) 2 % (24-48) Monocytes (%) (Auto) 1 % (0-9) Eosinophils (%) (Auto) 0 % (0-3) Basophils (%) (Auto) 1 % (0-3) Neutrophils # (Auto) 12.3 x10^3uL (1.8-7.7) Lymphocytes # (Auto) 0.2 x10^3/uL (1.0-4.8) Monocytes # (Auto) 0.1 x10^3/uL (0.0-1.1) Eosinophils # (Auto) 0.0 x10^3/uL (0.0-0.7) Basophils # (Auto) 0.1 x10^3/uL (0.0-0.2) Segmented Neutrophils % 89 % (35-66) Band Neutrophils % 7 % (0-9) Lymphocytes % 3 % (24-48) Monocytes % 1 % (0-10) Platelet Estimate Adequate (ADEQUATE) Poikilocytosis Slight Anisocytosis Slight [place] Cells Few Schistocytes Occ Sodium Level 138 mmol/L (136-145) Potassium Level 4.6 mmol/L (3.5-5.1) Chloride Level 99 mmol/L (98-107) Carbon Dioxide Level 26 mmol/L (21-32) Anion Gap 13 (6-14) Blood Urea Nitrogen 27 mg/dL (8-26) Creatinine 3.9 mg/dL (0.7-1.3) Estimated GFR (Cockcroft-Gault) 15.9 BUN/Creatinine Ratio 7 (6-20) Glucose Level 162 mg/dL (70-99) Calcium Level 7.8 mg/dL (8.5-10.1) Total Bilirubin 1.2 mg/dL (0.2-1.0) Aspartate Amino Transf (AST/SGOT) 26 U/L (15-37) Alanine Aminotransferase (ALT/SGPT) 13 U/L (16-63) Alkaline Phosphatase 127 U/L (46-116) Total Protein 5.6 g/dL (6.4-8.2) Albumin 2.6 g/dL (3.4-5.0) Albumin/Globulin Ratio 0.9 (1.0-1.7) Test 04/29/17 21:53 04/30/17 06:50 04/30/17 13:13 04/30/17 17:22 Glucose (Fingerstick) 159 mg/dL (70-99) 127 mg/dL (70-99) 265 mg/dL (70-99) White Blood Count 9.7 x10^3/uL (4.0-11.0) Red Blood Count 2.86 x10^6/uL (4.30-5.70) Hemoglobin 8.2 g/dL (13.0-17.5) Hematocrit 25.0 % (39.0-53.0) Mean Corpuscular Volume 88 fL (79-100) Mean Corpuscular Hemoglobin 29 pg (25-35) Mean Corpuscular Hemoglobin Concent 33 g/dL (31-37) Red Cell Distribution Width 17.0 % (11.5-14.5) Platelet Count 202 x10^3/uL (140-400) Neutrophils (%) (Auto) 92 % (31-73) Lymphocytes (%) (Auto) 5 % (24-48) Monocytes (%) (Auto) 3 % (0-9) Eosinophils (%) (Auto) 0 % (0-3) Basophils (%) (Auto) 0 % (0-3) Neutrophils # (Auto) 8.9 x10^3uL (1.8-7.7) Lymphocytes # (Auto) 0.5 x10^3/uL (1.0-4.8) Monocytes # (Auto) 0.3 x10^3/uL (0.0-1.1) Eosinophils # (Auto) 0.0 x10^3/uL (0.0-0.7) Basophils # (Auto) 0.0 x10^3/uL (0.0-0.2) Prothrombin Time 25.6 SEC (11.7-14.0) Prothromb Time International Ratio 2.5 (0.8-1.1) Sodium Level 136 mmol/L (136-145) Potassium Level 5.1 mmol/L (3.5-5.1) Chloride Level 97 mmol/L (98-107) Carbon Dioxide Level 27 mmol/L (21-32) Anion Gap 12 (6-14) Blood Urea Nitrogen 34 mg/dL (8-26) Creatinine 4.6 mg/dL (0.7-1.3) Estimated GFR (Cockcroft-Gault) 13.1 Glucose Level 225 mg/dL (70-99) Calcium Level 7.8 mg/dL (8.5-10.1) 25-Hydroxy Vitamin D Total 10.3 ng/mL (30-100) Laboratory Tests Test 04/29/17 19:27 04/29/17 20:30 04/29/17 21:53 04/30/17 06:50 Glucose (Fingerstick) 121 mg/dL (70-99) 159 mg/dL (70-99) White Blood Count 12.7 x10^3/uL (4.0-11.0) 9.7 x10^3/uL (4.0-11.0) Red Blood Count 2.99 x10^6/uL (4.30-5.70) 2.86 x10^6/uL (4.30-5.70) Hemoglobin 8.7 g/dL (13.0-17.5) 8.2 g/dL (13.0-17.5) Hematocrit 26.4 % (39.0-53.0) 25.0 % (39.0-53.0) Mean Corpuscular Volume 88 fL (79-100) 88 fL (79-100) Mean Corpuscular Hemoglobin 29 pg (25-35) 29 pg (25-35) Mean Corpuscular Hemoglobin Concent 33 g/dL (31-37) 33 g/dL (31-37) Red Cell Distribution Width 17.2 % (11.5-14.5) 17.0 % (11.5-14.5) Platelet Count 165 x10^3/uL (140-400) 202 x10^3/uL (140-400) Neutrophils (%) (Auto) 97 % (31-73) 92 % (31-73) Lymphocytes (%) (Auto) 2 % (24-48) 5 % (24-48) Monocytes (%) (Auto) 1 % (0-9) 3 % (0-9) Eosinophils (%) (Auto) 0 % (0-3) 0 % (0-3) Basophils (%) (Auto) 1 % (0-3) 0 % (0-3) Neutrophils # (Auto) 12.3 x10^3uL (1.8-7.7) 8.9 x10^3uL (1.8-7.7) Lymphocytes # (Auto) 0.2 x10^3/uL (1.0-4.8) 0.5 x10^3/uL (1.0-4.8) Monocytes # (Auto) 0.1 x10^3/uL (0.0-1.1) 0.3 x10^3/uL (0.0-1.1) Eosinophils # (Auto) 0.0 x10^3/uL (0.0-0.7) 0.0 x10^3/uL (0.0-0.7) Basophils # (Auto) 0.1 x10^3/uL (0.0-0.2) 0.0 x10^3/uL (0.0-0.2) Segmented Neutrophils % 89 % (35-66) Band Neutrophils % 7 % (0-9) Lymphocytes % 3 % (24-48) Monocytes % 1 % (0-10) Platelet Estimate Adequate (ADEQUATE) Poikilocytosis Slight Anisocytosis Slight [place] Cells Few Schistocytes Occ Prothrombin Time 25.4 SEC (11.7-14.0) 25.6 SEC (11.7-14.0) Prothromb Time International Ratio 2.5 (0.8-1.1) 2.5 (0.8-1.1) Sodium Level 138 mmol/L (136-145) 136 mmol/L (136-145) Potassium Level 4.6 mmol/L (3.5-5.1) 5.1 mmol/L (3.5-5.1) Chloride Level 99 mmol/L (98-107) 97 mmol/L (98-107) Carbon Dioxide Level 26 mmol/L (21-32) 27 mmol/L (21-32) Anion Gap 13 (6-14) 12 (6-14) Blood Urea Nitrogen 27 mg/dL (8-26) 34 mg/dL (8-26) Creatinine 3.9 mg/dL (0.7-1.3) 4.6 mg/dL (0.7-1.3) Estimated GFR (Cockcroft-Gault) 15.9 13.1 BUN/Creatinine Ratio 7 (6-20) Glucose Level 162 mg/dL (70-99) 225 mg/dL (70-99) Calcium Level 7.8 mg/dL (8.5-10.1) 7.8 mg/dL (8.5-10.1) Total Bilirubin 1.2 mg/dL (0.2-1.0) Aspartate Amino Transf (AST/SGOT) 26 U/L (15-37) Alanine Aminotransferase (ALT/SGPT) 13 U/L (16-63) Alkaline Phosphatase 127 U/L (46-116) Total Protein 5.6 g/dL (6.4-8.2) Albumin 2.6 g/dL (3.4-5.0) Albumin/Globulin Ratio 0.9 (1.0-1.7) 25-Hydroxy Vitamin D Total 10.3 ng/mL (30-100) Test 04/30/17 13:13 04/30/17 17:22 Glucose (Fingerstick) 127 mg/dL (70-99) 265 mg/dL (70-99) Imaging Intraoperative fluoroscopy shows excellent reduction of a comminuted distal femur fracture with plate and screw fixation Assessment Assessment POD# [1], S/P [ORIF left distal femur fracture] Problems: Plan Plan of Care Medical supportive care May transfer with nonweightbearing to left lower extremity APURVA SEVILLA MD Apr 30, 2017 18:47
[2017-04-30] MEDS: traZODone 50 MG TABLET. PO PRN (20:59)
[2017-04-30] MEDS: INSULIN DETEMIR 300 UNITS/3 ML INSULN.PEN. SQ SCH (21:01)
[2017-05-01] VITALS (25 sets, daily range): BP systolic 83–113; BP diastolic 43–61
[2017-05-01 05:56] LABS: BASO % 0 % (0-3); EOS % 0 % (0-3); HEMATOCRIT 22.9 % (39.0-53.0); HEMOGLOBIN 7.4 g/dL (13.0-17.5); LYMPH # 0.9 x10^3/uL (1.0-4.8); LYMPH % 8 % (24-48); MEAN CORPUSCULAR HEMOGLOBIN 28 pg (25-35); MEAN CORPUSCULAR HGB CONC 32 g/dL (31-37); MEAN CORPUSCULAR VOLUME 88 fL (79-100); MONO % 8 % (0-9); NEUT % 84 % (31-73); PLATELET COUNT 255 x10^3/uL (140-400); RED BLOOD COUNT 2.61 x10^6/uL (4.30-5.70); RED CELL DISTRIBUTION WIDTH 17.2 % (11.5-14.5); WHITE BLOOD COUNT 10.6 x10^3/uL (4.0-11.0)
[2017-05-01] MEDS: PHENYLEPHRINE INJ 80 MG in IV NORMAL SALINE 250ML 250 ML IV PRN (05:56)
[2017-05-01 06:56] LABS: CALCIUM 8.5 mg/dL (8.5-10.1); CREATININE 3.5 mg/dL (0.7-1.3); POTASSIUM 3.8 mmol/L (3.5-5.1)
[2017-05-01 07:30] LABS: PROTHROMBIN TIME PATIENT 29.6 SEC (11.7-14.0)
[2017-05-01] MEDS: CALCIUM CARBONATE 500 MG TAB.CHEW PO SCH ×3 (07:54→16:35)
[2017-05-01] MEDS: MIDODRINE 5 MG TABLET PO SCH ×2 (07:55→16:53)
[2017-05-01] MEDS: fentaNYL PF VIAL 100 MCG/2 ML VIAL IV PRN ×5 (07:57→23:20)
[2017-05-01] MEDS: INSULIN ASPART 300 UNITS/3 ML INSULN.PEN SQ SCH ×3 (08:04→17:02)
[2017-05-01] MEDS: ATORVASTATIN CALCIUM 40 MG TABLET. PO SCH (09:23)
[2017-05-01] MEDS: clonazePAM 0.5 MG TABLET PO SCH ×3 (09:23→21:33)
[2017-05-01] MEDS: CITALOPRAM 20 MG TABLET. PO SCH (09:24)
[2017-05-01] MEDS: PIOGLITAZONE 15 MG TABLET. PO SCH (09:24)
[2017-05-01] MEDS: FAMOTIDINE 20 MG TABLET. PO SCH (09:24)
[2017-05-01] MEDS: FOLIC/VIT B COMP W-C (RENAL) TABLET. PO SCH (09:24)
[2017-05-01] MEDS: LISINOPRIL 10 MG TABLET PO SCH (09:25)
[2017-05-01] MEDS: oxyCODONE ER 10 MG TAB.ER.12H PO SCH ×2 (09:25→21:38)
[2017-05-01] MEDS: FERROUS SULFATE 325 MG TABLET. PO SCH (09:25)
--- NOTE | 2017-05-01 09:46 | PDOC ---
BRENDENPedroPILAR SIMONS BILL OF MATERIALS CLERK 05/01/17 0946: IM PROGRESS NOTES- Objective Vitals Vital Signs Date Time Temp Pulse Resp B/P (MAP) Pulse Ox O2 Delivery O2 Flow Rate FiO2 05/01/17 09:25 20 100 Nasal Cannula 4.0 05/01/17 09:25 62 102/54 05/01/17 04:00 97.9 97.9 Input & Output Intake and Output 05/01/17 07:00 Intake Total 365 ml Output Total 0 ml Balance 365 ml Intake Oral 120 ml IV Total 245 ml Output Urine Total 0 ml Physical Exam Physical Exam General appearance - alert,well appearing, and in no distress and oriented to person, place, and time Mental Status - alert, oriented to person, place, and time, affect appropriate to mood Head - normal Chest - clear to auscultation, no wheezes, rales or rhonchi, symmetric air entry Heart - S1 and S2 normal Abdomen - soft, nontender, nondistended, no masses or organomegaly Neurological - alert and oriented Musculoskeletal - no muscular tenderness noted Extremities - no pedal edema Skin - warm and dry Labs Laboratory Tests Test 04/29/17 14:05 04/29/17 18:00 04/29/17 19:27 04/29/17 20:30 Glucose (Fingerstick) 77 mg/dL (70-99) 121 mg/dL (70-99) White Blood Count 6.6 x10^3/uL (4.0-11.0) 12.7 x10^3/uL (4.0-11.0) Hemoglobin 6.9 g/dL (13.0-17.5) 8.7 g/dL (13.0-17.5) Hematocrit 21.2 % (39.0-53.0) 26.4 % (39.0-53.0) Platelet Count 232 x10^3/uL (140-400) 165 x10^3/uL (140-400) Prothrombin Time 22.2 SEC (11.7-14.0) 25.4 SEC (11.7-14.0) Prothromb Time International Ratio 2.1 (0.8-1.1) 2.5 (0.8-1.1) Activated Partial Thromboplast Time 48 SEC (24-38) Red Blood Count 2.99 x10^6/uL (4.30-5.70) Mean Corpuscular Volume 88 fL (79-100) Mean Corpuscular Hemoglobin 29 pg (25-35) Mean Corpuscular Hemoglobin Concent 33 g/dL (31-37) Red Cell Distribution Width 17.2 % (11.5-14.5) Neutrophils (%) (Auto) 97 % (31-73) Lymphocytes (%) (Auto) 2 % (24-48) Monocytes (%) (Auto) 1 % (0-9) Eosinophils (%) (Auto) 0 % (0-3) Basophils (%) (Auto) 1 % (0-3) Neutrophils # (Auto) 12.3 x10^3uL (1.8-7.7) Lymphocytes # (Auto) 0.2 x10^3/uL (1.0-4.8) Monocytes # (Auto) 0.1 x10^3/uL (0.0-1.1) Eosinophils # (Auto) 0.0 x10^3/uL (0.0-0.7) Basophils # (Auto) 0.1 x10^3/uL (0.0-0.2) Segmented Neutrophils % 89 % (35-66) Band Neutrophils % 7 % (0-9) Lymphocytes % 3 % (24-48) Monocytes % 1 % (0-10) Platelet Estimate Adequate (ADEQUATE) Poikilocytosis Slight Anisocytosis Slight [place] Cells Few Schistocytes Occ Sodium Level 138 mmol/L (136-145) Potassium Level 4.6 mmol/L (3.5-5.1) Chloride Level 99 mmol/L (98-107) Carbon Dioxide Level 26 mmol/L (21-32) Anion Gap 13 (6-14) Blood Urea Nitrogen 27 mg/dL (8-26) Creatinine 3.9 mg/dL (0.7-1.3) Estimated GFR (Cockcroft-Gault) 15.9 BUN/Creatinine Ratio 7 (6-20) Glucose Level 162 mg/dL (70-99) Calcium Level 7.8 mg/dL (8.5-10.1) Total Bilirubin 1.2 mg/dL (0.2-1.0) Aspartate Amino Transf (AST/SGOT) 26 U/L (15-37) Alanine Aminotransferase (ALT/SGPT) 13 U/L (16-63) Alkaline Phosphatase 127 U/L (46-116) Total Protein 5.6 g/dL (6.4-8.2) Albumin 2.6 g/dL (3.4-5.0) Albumin/Globulin Ratio 0.9 (1.0-1.7) Test 04/29/17 21:53 04/30/17 06:50 04/30/17 13:13 04/30/17 17:22 Glucose (Fingerstick) 159 mg/dL (70-99) 127 mg/dL (70-99) 265 mg/dL (70-99) White Blood Count 9.7 x10^3/uL (4.0-11.0) Red Blood Count 2.86 x10^6/uL (4.30-5.70) Hemoglobin 8.2 g/dL (13.0-17.5) Hematocrit 25.0 % (39.0-53.0) Mean Corpuscular Volume 88 fL (79-100) Mean Corpuscular Hemoglobin 29 pg (25-35) Mean Corpuscular Hemoglobin Concent 33 g/dL (31-37) Red Cell Distribution Width 17.0 % (11.5-14.5) Platelet Count 202 x10^3/uL (140-400) Neutrophils (%) (Auto) 92 % (31-73) Lymphocytes (%) (Auto) 5 % (24-48) Monocytes (%) (Auto) 3 % (0-9) Eosinophils (%) (Auto) 0 % (0-3) Basophils (%) (Auto) 0 % (0-3) Neutrophils # (Auto) 8.9 x10^3uL (1.8-7.7) Lymphocytes # (Auto) 0.5 x10^3/uL (1.0-4.8) Monocytes # (Auto) 0.3 x10^3/uL (0.0-1.1) Eosinophils # (Auto) 0.0 x10^3/uL (0.0-0.7) Basophils # (Auto) 0.0 x10^3/uL (0.0-0.2) Prothrombin Time 25.6 SEC (11.7-14.0) Prothromb Time International Ratio 2.5 (0.8-1.1) Sodium Level 136 mmol/L (136-145) Potassium Level 5.1 mmol/L (3.5-5.1) Chloride Level 97 mmol/L (98-107) Carbon Dioxide Level 27 mmol/L (21-32) Anion Gap 12 (6-14) Blood Urea Nitrogen 34 mg/dL (8-26) Creatinine 4.6 mg/dL (0.7-1.3) Estimated GFR (Cockcroft-Gault) 13.1 Glucose Level 225 mg/dL (70-99) Calcium Level 7.8 mg/dL (8.5-10.1) 25-Hydroxy Vitamin D Total 10.3 ng/mL (30-100) Test 04/30/17 20:59 05/01/17 05:30 05/01/17 07:55 Glucose (Fingerstick) 250 mg/dL (70-99) 217 mg/dL (70-99) White Blood Count 10.6 x10^3/uL (4.0-11.0) Red Blood Count 2.61 x10^6/uL (4.30-5.70) Hemoglobin 7.4 g/dL (13.0-17.5) Hematocrit 22.9 % (39.0-53.0) Mean Corpuscular Volume 88 fL (79-100) Mean Corpuscular Hemoglobin 28 pg (25-35) Mean Corpuscular Hemoglobin Concent 32 g/dL (31-37) Red Cell Distribution Width 17.2 % (11.5-14.5) Platelet Count 255 x10^3/uL (140-400) Neutrophils (%) (Auto) 84 % (31-73) Lymphocytes (%) (Auto) 8 % (24-48) Monocytes (%) (Auto) 8 % (0-9) Eosinophils (%) (Auto) 0 % (0-3) Basophils (%) (Auto) 0 % (0-3) Neutrophils # (Auto) 8.9 x10^3uL (1.8-7.7) Lymphocytes # (Auto) 0.9 x10^3/uL (1.0-4.8) Monocytes # (Auto) 0.8 x10^3/uL (0.0-1.1) Eosinophils # (Auto) 0.0 x10^3/uL (0.0-0.7) Basophils # (Auto) 0.0 x10^3/uL (0.0-0.2) Prothrombin Time 29.6 SEC (11.7-14.0) Prothromb Time International Ratio 3.0 (0.8-1.1) Sodium Level 137 mmol/L (136-145) Potassium Level 3.8 mmol/L (3.5-5.1) Chloride Level 98 mmol/L (98-107) Carbon Dioxide Level 33 mmol/L (21-32) Anion Gap 6 (6-14) Blood Urea Nitrogen 28 mg/dL (8-26) Creatinine 3.5 mg/dL (0.7-1.3) Estimated GFR (Cockcroft-Gault) 18.0 Glucose Level 228 mg/dL (70-99) Calcium Level 8.5 mg/dL (8.5-10.1) Laboratory Tests Test 04/30/17 13:13 04/30/17 17:22 04/30/17 20:59 05/01/17 05:30 Glucose (Fingerstick) 127 mg/dL (70-99) 265 mg/dL (70-99) 250 mg/dL (70-99) White Blood Count 10.6 x10^3/uL (4.0-11.0) Red Blood Count 2.61 x10^6/uL (4.30-5.70) Hemoglobin 7.4 g/dL (13.0-17.5) Hematocrit 22.9 % (39.0-53.0) Mean Corpuscular Volume 88 fL (79-100) Mean Corpuscular Hemoglobin 28 pg (25-35) Mean Corpuscular Hemoglobin Concent 32 g/dL (31-37) Red Cell Distribution Width 17.2 % (11.5-14.5) Platelet Count 255 x10^3/uL (140-400) Neutrophils (%) (Auto) 84 % (31-73) Lymphocytes (%) (Auto) 8 % (24-48) Monocytes (%) (Auto) 8 % (0-9) Eosinophils (%) (Auto) 0 % (0-3) Basophils (%) (Auto) 0 % (0-3) Neutrophils # (Auto) 8.9 x10^3uL (1.8-7.7) Lymphocytes # (Auto) 0.9 x10^3/uL (1.0-4.8) Monocytes # (Auto) 0.8 x10^3/uL (0.0-1.1) Eosinophils # (Auto) 0.0 x10^3/uL (0.0-0.7) Basophils # (Auto) 0.0 x10^3/uL (0.0-0.2) Prothrombin Time 29.6 SEC (11.7-14.0) Prothromb Time International Ratio 3.0 (0.8-1.1) Sodium Level 137 mmol/L (136-145) Potassium Level 3.8 mmol/L (3.5-5.1) Chloride Level 98 mmol/L (98-107) Carbon Dioxide Level 33 mmol/L (21-32) Anion Gap 6 (6-14) Blood Urea Nitrogen 28 mg/dL (8-26) Creatinine 3.5 mg/dL (0.7-1.3) Estimated GFR (Cockcroft-Gault) 18.0 Glucose Level 228 mg/dL (70-99) Calcium Level 8.5 mg/dL (8.5-10.1) Test 05/01/17 07:55 Glucose (Fingerstick) 217 mg/dL (70-99) Meds Current Medications Famotidine (Pepcid) 20 mg Q48H PO Last administered on 05/01/17t 09:24; Start 05/01/17 at 09:00 Assessment Assessment FINAL IMPRESSION: Hypotension on pressors levophed 1. Shifting of the distal femoral fragment. The patient had intramedullary nailing done earlier this month, is going to go for revision. 2. End-stage renal disease, on hemodialysis. 3. Insulin-dependent diabetes. 4. Right [id number] amputation. 5. Congestive heart failure, chronic, systolic.30% EJF 6. Chronic atrial fibrillation, on Coumadin. PLAN: ORIF L femur fx POD 2 - ortho following hypotension - improved - still on vasopressor anemia a/c - post PRC and ffp Hgb 7.4 anticoagulation - INR 3.0- last dose Warfarin 3mg 04/30 - pharmacy managing DM - BS 127-265 ESRD - hemodialysis sleep apnea - CPAP nightly at hs CAD - cardiology following - asymptomatic For further plan of care, please refer to the orders. Lt femur surgery.Operative procedure: Operative reduction internal fixation left distal femur fracture, 04/29/17 Pt transferred to ICU recieved 5 u prbc+3 uffp levophed to maintain BP dialysis today. pt donot want code blue spoke with staff Plan Plan For more details regarding further plans, please refer to the orders. SURI MCCRARY MD 05/01/17 1011: IM PROGRESS NOTES- Assessment Assessment D/w patient and sister. Clinically improving. The patient was seen and examined by me. Chart reviewed and plan of care formulated. Discussed with, reviewed and agree with MANAGER CARDIOVASCULAR's notes, plan of care and orders with modifications as necessary. For more details regarding further plans, please refer to the orders. PILAR SALGUERO APRN May 01, 2017 09:46 SURI MCCRARY MD May 01, 2017 10:11
--- NOTE | 2017-05-01 10:27 | PDOC ---
PROGRESS NOTES Subjective Subjective Patient doing well. No cardiac issues. Objective Objective Vital Signs Date Time Temp Pulse Resp B/P (MAP) Pulse Ox O2 Delivery O2 Flow Rate FiO2 05/01/17 10:00 60 19 101/46 (64) 100 Nasal Cannula 4.0 05/01/17 08:00 97.8 97.8 Intake and Output 05/01/17 07:00 Intake Total 365 ml Output Total 0 ml Balance 365 ml Intake Oral 120 ml IV Total 245 ml Output Urine Total 0 ml Physical Exam COMMENT Awake, Alert, Oriented In No Acute Distress Lungs CTAB Cardiac: S1-S2, 2/6 systolic murmur and 2/6 diastolic murmur. No changes in cardiac exam Assessment Assessment Patient compensated cardiac vazquez, agree with present plan Plan Plan of Care Diabetic vasculopathy, valvular heart disease, CAD, chronic A Fib- Patient continues to be compensated well cardiac vazquez. Continue cardiac telemetry. Continue Coumadin for chronic A Fib. Plan to continue with medical treatment without any further invasive surgeries. Patient to undergo HD toady. Plan to continue with dialysis until after New Years. At that point will reassess situation, but discussed in length with patient about d/c HD after the New Years and proceeding with comfort measures only. Patient and family in agreement with plan. Comment Review of Relevant I have reviewed the following items maria teresa (where applicable) has been applied. Labs Laboratory Tests Test 04/29/17 14:05 04/29/17 18:00 04/29/17 19:27 04/29/17 20:30 Glucose (Fingerstick) 77 mg/dL (70-99) 121 mg/dL (70-99) White Blood Count 6.6 x10^3/uL (4.0-11.0) 12.7 x10^3/uL (4.0-11.0) Hemoglobin 6.9 g/dL (13.0-17.5) 8.7 g/dL (13.0-17.5) Hematocrit 21.2 % (39.0-53.0) 26.4 % (39.0-53.0) Platelet Count 232 x10^3/uL (140-400) 165 x10^3/uL (140-400) Prothrombin Time 22.2 SEC (11.7-14.0) 25.4 SEC (11.7-14.0) Prothromb Time International Ratio 2.1 (0.8-1.1) 2.5 (0.8-1.1) Activated Partial Thromboplast Time 48 SEC (24-38) Red Blood Count 2.99 x10^6/uL (4.30-5.70) Mean Corpuscular Volume 88 fL (79-100) Mean Corpuscular Hemoglobin 29 pg (25-35) Mean Corpuscular Hemoglobin Concent 33 g/dL (31-37) Red Cell Distribution Width 17.2 % (11.5-14.5) Neutrophils (%) (Auto) 97 % (31-73) Lymphocytes (%) (Auto) 2 % (24-48) Monocytes (%) (Auto) 1 % (0-9) Eosinophils (%) (Auto) 0 % (0-3) Basophils (%) (Auto) 1 % (0-3) Neutrophils # (Auto) 12.3 x10^3uL (1.8-7.7) Lymphocytes # (Auto) 0.2 x10^3/uL (1.0-4.8) Monocytes # (Auto) 0.1 x10^3/uL (0.0-1.1) Eosinophils # (Auto) 0.0 x10^3/uL (0.0-0.7) Basophils # (Auto) 0.1 x10^3/uL (0.0-0.2) Segmented Neutrophils % 89 % (35-66) Band Neutrophils % 7 % (0-9) Lymphocytes % 3 % (24-48) Monocytes % 1 % (0-10) Platelet Estimate Adequate (ADEQUATE) Poikilocytosis Slight Anisocytosis Slight Hany Cells Few Schistocytes Occ Sodium Level 138 mmol/L (136-145) Potassium Level 4.6 mmol/L (3.5-5.1) Chloride Level 99 mmol/L (98-107) Carbon Dioxide Level 26 mmol/L (21-32) Anion Gap 13 (6-14) Blood Urea Nitrogen 27 mg/dL (8-26) Creatinine 3.9 mg/dL (0.7-1.3) Estimated GFR (Cockcroft-Gault) 15.9 BUN/Creatinine Ratio 7 (6-20) Glucose Level 162 mg/dL (70-99) Calcium Level 7.8 mg/dL (8.5-10.1) Total Bilirubin 1.2 mg/dL (0.2-1.0) Aspartate Amino Transf (AST/SGOT) 26 U/L (15-37) Alanine Aminotransferase (ALT/SGPT) 13 U/L (16-63) Alkaline Phosphatase 127 U/L (46-116) Total Protein 5.6 g/dL (6.4-8.2) Albumin 2.6 g/dL (3.4-5.0) Albumin/Globulin Ratio 0.9 (1.0-1.7) Test 04/29/17 21:53 04/30/17 06:50 04/30/17 13:13 04/30/17 17:22 Glucose (Fingerstick) 159 mg/dL (70-99) 127 mg/dL (70-99) 265 mg/dL (70-99) White Blood Count 9.7 x10^3/uL (4.0-11.0) Red Blood Count 2.86 x10^6/uL (4.30-5.70) Hemoglobin 8.2 g/dL (13.0-17.5) Hematocrit 25.0 % (39.0-53.0) Mean Corpuscular Volume 88 fL (79-100) Mean Corpuscular Hemoglobin 29 pg (25-35) Mean Corpuscular Hemoglobin Concent 33 g/dL (31-37) Red Cell Distribution Width 17.0 % (11.5-14.5) Platelet Count 202 x10^3/uL (140-400) Neutrophils (%) (Auto) 92 % (31-73) Lymphocytes (%) (Auto) 5 % (24-48) Monocytes (%) (Auto) 3 % (0-9) Eosinophils (%) (Auto) 0 % (0-3) Basophils (%) (Auto) 0 % (0-3) Neutrophils # (Auto) 8.9 x10^3uL (1.8-7.7) Lymphocytes # (Auto) 0.5 x10^3/uL (1.0-4.8) Monocytes # (Auto) 0.3 x10^3/uL (0.0-1.1) Eosinophils # (Auto) 0.0 x10^3/uL (0.0-0.7) Basophils # (Auto) 0.0 x10^3/uL (0.0-0.2) Prothrombin Time 25.6 SEC (11.7-14.0) Prothromb Time International Ratio 2.5 (0.8-1.1) Sodium Level 136 mmol/L (136-145) Potassium Level 5.1 mmol/L (3.5-5.1) Chloride Level 97 mmol/L (98-107) Carbon Dioxide Level 27 mmol/L (21-32) Anion Gap 12 (6-14) Blood Urea Nitrogen 34 mg/dL (8-26) Creatinine 4.6 mg/dL (0.7-1.3) Estimated GFR (Cockcroft-Gault) 13.1 Glucose Level 225 mg/dL (70-99) Calcium Level 7.8 mg/dL (8.5-10.1) 25-Hydroxy Vitamin D Total 10.3 ng/mL (30-100) Test 04/30/17 20:59 05/01/17 05:30 05/01/17 07:55 Glucose (Fingerstick) 250 mg/dL (70-99) 217 mg/dL (70-99) White Blood Count 10.6 x10^3/uL (4.0-11.0) Red Blood Count 2.61 x10^6/uL (4.30-5.70) Hemoglobin 7.4 g/dL (13.0-17.5) Hematocrit 22.9 % (39.0-53.0) Mean Corpuscular Volume 88 fL (79-100) Mean Corpuscular Hemoglobin 28 pg (25-35) Mean Corpuscular Hemoglobin Concent 32 g/dL (31-37) Red Cell Distribution Width 17.2 % (11.5-14.5) Platelet Count 255 x10^3/uL (140-400) Neutrophils (%) (Auto) 84 % (31-73) Lymphocytes (%) (Auto) 8 % (24-48) Monocytes (%) (Auto) 8 % (0-9) Eosinophils (%) (Auto) 0 % (0-3) Basophils (%) (Auto) 0 % (0-3) Neutrophils # (Auto) 8.9 x10^3uL (1.8-7.7) Lymphocytes # (Auto) 0.9 x10^3/uL (1.0-4.8) Monocytes # (Auto) 0.8 x10^3/uL (0.0-1.1) Eosinophils # (Auto) 0.0 x10^3/uL (0.0-0.7) Basophils # (Auto) 0.0 x10^3/uL (0.0-0.2) Prothrombin Time 29.6 SEC (11.7-14.0) Prothromb Time International Ratio 3.0 (0.8-1.1) Sodium Level 137 mmol/L (136-145) Potassium Level 3.8 mmol/L (3.5-5.1) Chloride Level 98 mmol/L (98-107) Carbon Dioxide Level 33 mmol/L (21-32) Anion Gap 6 (6-14) Blood Urea Nitrogen 28 mg/dL (8-26) Creatinine 3.5 mg/dL (0.7-1.3) Estimated GFR (Cockcroft-Gault) 18.0 Glucose Level 228 mg/dL (70-99) Calcium Level 8.5 mg/dL (8.5-10.1) Laboratory Tests Test 04/30/17 13:13 04/30/17 17:22 04/30/17 20:59 05/01/17 05:30 Glucose (Fingerstick) 127 mg/dL (70-99) 265 mg/dL (70-99) 250 mg/dL (70-99) White Blood Count 10.6 x10^3/uL (4.0-11.0) Red Blood Count 2.61 x10^6/uL (4.30-5.70) Hemoglobin 7.4 g/dL (13.0-17.5) Hematocrit 22.9 % (39.0-53.0) Mean Corpuscular Volume 88 fL (79-100) Mean Corpuscular Hemoglobin 28 pg (25-35) Mean Corpuscular Hemoglobin Concent 32 g/dL (31-37) Red Cell Distribution Width 17.2 % (11.5-14.5) Platelet Count 255 x10^3/uL (140-400) Neutrophils (%) (Auto) 84 % (31-73) Lymphocytes (%) (Auto) 8 % (24-48) Monocytes (%) (Auto) 8 % (0-9) Eosinophils (%) (Auto) 0 % (0-3) Basophils (%) (Auto) 0 % (0-3) Neutrophils # (Auto) 8.9 x10^3uL (1.8-7.7) Lymphocytes # (Auto) 0.9 x10^3/uL (1.0-4.8) Monocytes # (Auto) 0.8 x10^3/uL (0.0-1.1) Eosinophils # (Auto) 0.0 x10^3/uL (0.0-0.7) Basophils # (Auto) 0.0 x10^3/uL (0.0-0.2) Prothrombin Time 29.6 SEC (11.7-14.0) Prothromb Time International Ratio 3.0 (0.8-1.1) Sodium Level 137 mmol/L (136-145) Potassium Level 3.8 mmol/L (3.5-5.1) Chloride Level 98 mmol/L (98-107) Carbon Dioxide Level 33 mmol/L (21-32) Anion Gap 6 (6-14) Blood Urea Nitrogen 28 mg/dL (8-26) Creatinine 3.5 mg/dL (0.7-1.3) Estimated GFR (Cockcroft-Gault) 18.0 Glucose Level 228 mg/dL (70-99) Calcium Level 8.5 mg/dL (8.5-10.1) Test 05/01/17 07:55 Glucose (Fingerstick) 217 mg/dL (70-99) Medications Current Medications Acetaminophen/ Hydrocodone Bitart (Lortab 10/325) 1 tab PRN Q6HRS PRN PO PAIN Last administered on 04/30/17 18:13; Start 04/28/17 at 18:45 Atorvastatin Calcium (Lipitor) 40 mg DAILY PO Last administered on 05/01/17 09 :23; Start 04/29/17 at 09:00 Clonazepam (KlonoPIN) 0.5 mg PRN Q6HRS PRN PO ANXIETY / AGITATION; Start 04/28 at 21:15 Famotidine (Pepcid) 20 mg DAILY PO ; Start 04/29/17 at 09:00; Stop 04/29/17 at 14:04; Status DC Ferrous Sulfate (Feosol) 325 mg DAILY PO Last administered on 05/01/17 09:25; Start 04/29/17 at 09:00 Vitamin B Complex/ Vitamin C (Sapphire-Sara) 1 tab DAILY PO Last administered on 09:24; Start 04/29/17 at 09:00 Lisinopril (Prinivil) 10 mg DAILY PO Last administered on 05/01/17 09:25; Start 04/29/17 at 09:00 Oxycodone HCl (OxyCONTIN) 10 mg BID PO Last administered on 05/01/17 09:25; Start 04/29/17 at 09:00 Senna/Docusate Sodium (Senna Plus) 2 tab PRN DAILY PRN PO CONSTIPATION 1ST CHOICE; Start 04/28/17 at 21:15 Trazodone HCl (Desyrel) 50 mg PRN QHS PRN PO INSOMNIA Last administered on 04/30 20:59; Start 04/28/17 at 21:15 Calcium Carbonate/ Glycine (Tums) 500 mg TIDAC PO Last administered on 07:54; Start 04/29/17 at 07:30 Citalopram Hydrobromide (CeleXA) 20 mg DAILY PO Last administered on 05/01/17 09:24; Start 04/29/17 at 09:00 Insulin Detemir (Levemir) 22 units QHS SQ ; Start 04/29/17 at 21:00; Stop at 21:00; Status DC Insulin Aspart (NovoLOG) 2 units TIDAC SQ ; Start 04/29/17 at 07:30; Stop at 07:30; Status DC Pioglitazone HCl (Actos) 45 mg DAILY PO Last administered on 05/01/17 09:24; Start 04/29/17 at 09:00 Insulin Detemir (Levemir) 12 units QHS SQ Last administered on 04/30/17 21:01 ; Start 04/29/17 at 21:00 Insulin Aspart (NovoLOG) 0-5 UNITS TIDWMEALS SQ ; Start 04/29/17 at 08:00; Stop 04/29/17 at 14:05; Status DC Dextrose (Dextrose 50%-Water Syringe) 12.5 gm PRN Q15MIN PRN IV SEE COMMENTS; Start 04/28/17 at 22:00; Stop 11/30/17 at 12:17; Status DC Clonazepam (KlonoPIN) 0.5 mg TID PO Last administered on 05/01/17 09:23; Start 04/28/17 at 22:00 Diphenoxylate HCl/ Atropine (Lomotil) 1 tab PRN QID PRN PO DIARRHEA; Start at 22:00 Midodrine (Proamatine) 5 mg BIDBFRMEAL PO Last administered on 05/01/17 07:55 ; Start 04/29/17 at 07:30 Polyethylene Glycol (miraLAX PACKET) 17 gm PRN DAILY PRN PO CONSTIPATION; Start 04/28/17 at 22:00 Warfarin Sodium (Coumadin) 3 mg DAILY16 PO Last administered on 04/30/17 17:33 ; Start 04/29/17 at 16:00 Darbepoetin Noel (Aranesp) 60 mcg Th SQ Last administered on 04/29/17 22:11; Start 04/29/17 at 21:00 Ondansetron HCl (Zofran) 4 mg PRN Q4HRS PRN IV NAUSEA; Start 04/28/17 at 22:00 Warfarin Sodium (Coumadin Per Physician) 1 each PRN DAILY PRN MC SEE COMMENTS Last administered on 04/30/17 11:15; Start 04/28/17 at 22:15 Sodium Chloride 1,000 ml @ 1,000 mls/hr Q1H PRN IV hypotension; Start at 08:39; Stop 04/29/17 at 14:38; Status DC Albumin Human 200 ml @ 200 mls/hr 1X PRN PRN IV Hypotension; Start 04/29/17 at 08:45; Stop 04/29/17 at 14:44; Status DC Sodium Chloride 1,000 ml @ 400 mls/hr Q2H30M PRN IV PATENCY; Start 04/29/17 at 08:39; Stop 04/29/17 at 20:38; Status DC Info (PHARMACY MONITORING -- do not chart) 1 each PRN DAILY PRN MC SEE COMMENTS ; Start 04/29/17 at 08:45; Status UNV Info (PHARMACY MONITORING -- do not chart) 1 each PRN DAILY PRN MC SEE COMMENTS ; Start 04/29/17 at 08:45 Insulin Aspart (NovoLOG) 0-7 UNITS TIDWMEALS SQ Last administered on 05/01/17 08:04; Start 04/29/17 at 12:00 Dextrose (Dextrose 50%-Water Syringe) 12.5 gm PRN Q15MIN PRN IV SEE COMMENTS; Start 04/29/17 at 10:00 Darbepoetin Noel (Aranesp) 60 mcg WEEKLYHS SQ ; Start 04/29/17 at 21:00; Stop 04/29/17 at 21:00; Status DC Famotidine (Pepcid) 20 mg Q48H PO Last administered on 05/01/17 09:24; Start 05/01/17 at 09:00 Fentanyl Citrate (Fentanyl 2ml Vial) 12.5 mcg PRN Q3HRS PRN IM PAIN; Start at 14:15; Stop 04/29/17 at 14:34; Status DC Fentanyl Citrate (Fentanyl 2ml Vial) 12.5 mcg PRN Q3HRS PRN IV PAIN Last administered on 05/01/17 07:57; Start 04/29/17 at 14:45 Propofol 20 ml @ As Directed STK-MED ONCE IV ; Start 04/29/17 at 15:45; Stop 04/29/17 at 15:46; Status DC Lidocaine HCl (Lidocaine Pf 2% Vial) 5 ml STK-MED ONCE .ROUTE ; Start 04/29/17 at 15:45; Stop 04/29/17 at 15:46; Status DC Succinylcholine Chloride (Anectine) 200 mg STK-MED ONCE .ROUTE ; Start at 15:46; Stop 04/29/17 at 15:47; Status DC Rocuronium Ulysses (Zemuron) 50 mg STK-MED ONCE .ROUTE ; Start 04/29/17 at 15: 46; Stop 04/29/17 at 15:47; Status DC Fentanyl Citrate (Fentanyl 2ml Vial) 100 mcg STK-MED ONCE .ROUTE ; Start at 15:46; Stop 04/29/17 at 15:47; Status DC Cefazolin Sodium/ Dextrose 50 ml @ As Directed STK-MED ONCE IV ; Start at 16:46; Stop 04/29/17 at 16:47; Status DC Ephedrine Sulfate (Akovaz) 50 mg STK-MED ONCE .ROUTE ; Start 04/29/17 at 16:47 ; Stop 04/29/17 at 16:48; Status DC Rocuronium Ulysses (Zemuron) 50 mg STK-MED ONCE .ROUTE ; Start 04/29/17 at 17: 23; Stop 04/29/17 at 17:24; Status DC Fentanyl Citrate (Fentanyl 2ml Vial) 100 mcg STK-MED ONCE .ROUTE ; Start at 17:23; Stop 04/29/17 at 17:24; Status DC Ondansetron HCl (Zofran) 4 mg STK-MED ONCE .ROUTE ; Start 04/29/17 at 17:32; Stop 04/29/17 at 17:33; Status DC Neostigmine Methylsulfate (Bloxiverz) 10 mg STK-MED ONCE .ROUTE ; Start at 17:32; Stop 04/29/17 at 17:33; Status DC Glycopyrrolate (Robinul) 1 mg STK-MED ONCE .ROUTE ; Start 04/29/17 at 17:33; Stop 04/29/17 at 17:34; Status DC Albumin Human 500 ml @ As Directed STK-MED ONCE IV ; Start 04/29/17 at 17:50; Stop 04/29/17 at 17:51; Status DC Vasopressin (Vasostrict) 20 unit STK-MED ONCE .ROUTE ; Start 04/29/17 at 17:53 ; Stop 04/29/17 at 17:54; Status DC Sodium Chloride (Sodium Chloride) 50 ml STK-MED ONCE IJ ; Start 04/29/17 at 17: 54; Stop 04/29/17 at 17:55; Status DC Phenylephrine HCl 80 mg/Sodium Chloride 258 ml @ 0 mls/hr CONT PRN IV SEE I/O RECORD Last administered on 05/01/17t 05:56; Start 04/29/17 at 20:30 Fentanyl Citrate (Fentanyl 2ml Vial) 25 mcg PRN Q5MIN PRN IV Acute Pain; Start 04/29/17 at 20:30; Stop 04/30/17 at 20:29; Status DC Fentanyl Citrate (Fentanyl 2ml Vial) 50 mcg PRN Q5MIN PRN IV Acute Pain; Start 04/29/17 at 20:30; Stop 04/30/17 at 20:29; Status DC Morphine Sulfate 2 mg PRN Q10MIN PRN IV Mild Pain; Start 04/29/17 at 20:30; Stop 04/30/17 at 20:29; Status DC Hydromorphone HCl (Dilaudid) 0.2 mg PRN Q10MIN PRN IV Mild pain; Start at 20:30; Stop 04/30/17 at 20:29; Status DC Ondansetron HCl (Zofran) 4 mg PRN Q6HRS PRN IV Nausea, 1st Choice; Start 04/29 at 20:30; Stop 04/30/17 at 20:29; Status DC Sodium Chloride 1,000 ml @ 1,000 mls/hr Q1H PRN IV hypotension; Start 04/30/17 at 08:33; Stop 04/30/17 at 14:32; Status DC Diphenhydramine HCl (Benadryl) 25 mg 1X PRN PRN IV ITCHING; Start 04/30/17 at 08:45; Stop 05/01/17 at 08:44; Status DC Diphenhydramine HCl (Benadryl) 25 mg 1X PRN PRN IV ITCHING; Start 04/30/17 at 08:45; Stop 05/01/17 at 08:44; Status DC Sodium Chloride 1,000 ml @ 400 mls/hr Q2H30M PRN IV PATENCY; Start 04/30/17 at 08:33; Stop 04/30/17 at 20:32; Status DC Info (PHARMACY MONITORING -- do not chart) 1 each PRN DAILY PRN MC SEE COMMENTS ; Start 04/30/17 at 08:45; Status UNV Active Scripts Active Hydrocodone-Apap 10-325 (Hydrocodone Bit/Acetaminophen) 1 Each Tablet 1 Tab PO PRN Q6HRS PRN 30 Days Senna-Time S Tablet (Sennosides/Docusate Sodium) 1 Each Tablet 2 Tab PO PRN DAILY PRN Reported Aranesp Syringe (Darbepoetin Noel In Polysorbat) 60 Mcg/0.3 Ml Disp.syrin 60 Mcg SQ WE@2100 Warfarin Sodium 3 Mg Tablet 1 Tab PO DAILY Midodrine Hcl 5 Mg Tablet 5 Mg PO BID at 10 and 18 Clonazepam 0.5 Mg Tablet 1 Tab PO TID [micro guard2% powd] TOP [moriah] Miralax (Polyethylene Glycol 3350) 17 Gm Powd.pack 1 Packet PO DAILY PRN Actos (Pioglitazone Hcl) 45 Mg Tablet 1 Tab PO DAILY Ondansetron HCl 4 mg/2 ml Syr (Ondansetron HCl/Pf) 4 Mg/2 Ml Syringe 4 Mg IV Q4HRS PRN Lomotil Tablet (Diphenoxylate Hcl/Atropine) 1 Each Tablet 1 Tab PO QID PRN Humalog (Insulin Lispro) 100 Unit/1 Ml Cartridge 0 SQ TIDAC sliding scale Lisinopril 10 Mg Tablet 10 Mg PO DAILY Oxycontin (Oxycodone HCl) 10 Mg Tab.er.12h 10 Mg PO BID Nephro-Sara Tablet (Folic Acid/Vitamin B Comp W-C) 0.8 Mg Tablet 0.8 Mg PO DAILY Ferrous Sulfate 325 Mg Tablet 325 Mg PO DAILY Famotidine 20 Mg Tablet 20 Mg PO DAILY Clonazepam 0.5 Mg Tablet 0.5 Mg PO Q6HRS PRN Escitalopram Oxalate 10 Mg Tablet 10 Mg PO DAILY Lantus Solostar (Insulin Glargine,Hum.rec.anlog) 100 Unit/1 Ml Insuln.pen 12 Units SQ QHS Trazodone Hcl 50 Mg Tablet 50 Mg PO PRN QHS PRN Actos (Pioglitazone Hcl) 45 Mg Tablet 1 Tab PO DAILY Tums (Calcium Carbonate) 300 Mg Tab.chew 300 Mg PO TIDAC Atorvastatin Calcium 20 Mg Tablet 40 Mg PO DAILY Vitals/I & O Vital Sign - Last 24 Hours 04/30/17 04/30/17 04/30/17 04/30/17 11:00 12:00 12:00 13:00 Temp 97.8 97.8 Pulse 68 70 70 Resp 13 15 13 B/P (MAP) 106/52 (70) 106/55 (72) 111/53 (72) Pulse Ox 100 98 99 O2 Delivery Nasal Cannula Nasal Cannula Nasal Cannula Nasal Cannula O2 Flow Rate 4.0 4.0 3.0 4.0 04/30/17 04/30/17 04/30/17 04/30/17 14:00 15:00 16:00 16:00 Temp 98.3 98.3 Pulse 74 82 76 Resp 21 16 16 B/P (MAP) 91/48 (62) 78/39 (52) 83/44 (57) Pulse Ox 100 95 95 O2 Delivery Nasal Cannula Nasal Cannula Nasal Cannula Nasal Cannula O2 Flow Rate 4.0 4.0 4.0 4.0 04/30/17 04/30/17 04/30/17 04/30/17 17:00 17:33 18:00 19:00 Temp 98.3 98.3 Pulse 80 78 80 71 Resp 16 16 15 B/P (MAP) 96/48 (64) 100/48 101/48 (65) 86/48 (61) Pulse Ox 95 95 100 O2 Delivery Nasal Cannula Nasal Cannula Nasal Cannula O2 Flow Rate 4.0 4.0 4.0 04/30/17 04/30/17 04/30/17 04/30/17 19:33 20:00 20:18 20:50 Pulse 68 Resp 15 17 15 B/P (MAP) 92/49 (63) Pulse Ox 99 100 100 O2 Delivery Nasal Cannula Nasal Cannula Nasal Cannula Nasal Cannula O2 Flow Rate 4.0 4.0 4.0 4.0 04/30/17 04/30/17 04/30/17 04/30/17 21:00 21:00 22:00 23:00 Pulse 72 68 67 Resp 23 16 14 12 B/P (MAP) 90/48 (62) 99/51 (67) 94/51 (65) Pulse Ox 100 100 98 100 O2 Delivery Nasal Cannula Nasal Cannula Nasal Cannula Nasal Cannula O2 Flow Rate 4.0 4.0 4.0 4.0 05/01/17 05/01/17 05/01/17 05/01/17 00:00 00:00 01:00 01:00 Temp 98.1 98.1 Pulse 63 59 Resp 18 12 14 B/P (MAP) 88/46 (60) 100/51 (67) Pulse Ox 100 100 100 O2 Delivery Nasal Cannula Nasal Cannula Nasal Cannula Nasal Cannula O2 Flow Rate 4.0 4.0 4.0 4.0 05/01/17 05/01/17 05/01/17 05/01/17 02:00 03:00 04:00 04:00 Temp 97.9 97.9 Pulse 57 59 63 Resp 14 16 18 B/P (MAP) 95/51 (66) 103/53 (70) 104/54 (71) Pulse Ox 100 100 99 O2 Delivery Nasal Cannula Nasal Cannula Nasal Cannula Nasal Cannula O2 Flow Rate 4.0 4.0 4.0 4.0 05/01/17 05/01/17 05/01/17 05/01/17 05:00 06:00 07:00 07:55 Pulse 70 58 60 63 Resp 21 19 11 B/P (MAP) 92/48 (63) 99/55 (70) 113/56 (75) 113/56 Pulse Ox 100 100 100 O2 Delivery Nasal Cannula Nasal Cannula Nasal Cannula O2 Flow Rate 4.0 4.0 4.0 05/01/17 05/01/17 05/01/17 05/01/17 07:57 08:00 09:00 09:25 Temp 97.8 97.8 Pulse 64 66 62 Resp 16 20 21 B/P (MAP) 109/53 (71) 102/54 (70) 102/54 Pulse Ox 100 100 O2 Delivery Nasal Cannula Nasal Cannula Nasal Cannula O2 Flow Rate 4.0 4.0 4.0 05/01/17 05/01/17 09:25 10:00 Pulse 60 Resp 20 19 B/P (MAP) 101/46 (64) Pulse Ox 100 100 O2 Delivery Nasal Cannula Nasal Cannula O2 Flow Rate 4.0 4.0 Intake and Output 04/30/17 04/30/17 05/01/17 15:00 23:00 07:00 Intake Total 169 ml 196 ml Output Total 0 ml 0 ml Balance 169 ml 196 ml JARON RAMOS MD May 01, 2017 10:27
--- NOTE | 2017-05-01 10:52 | PDOC ---
PROGRESS NOTES Subjective Subjective Problems overnight: Overall doing well this morning he said he does have pain with range of motion and movement of the leg but it is well controlled when he gets his IV pain medications Objective Vital Signs Vital Signs Date Time Temp Pulse Resp B/P (MAP) Pulse Ox O2 Delivery O2 Flow Rate FiO2 05/01/17 10:00 60 19 101/46 (64) 100 Nasal Cannula 4.0 05/01/17 08:00 97.8 97.8 Physical Exam Examination of the left leg reveals baseline distal neurovascular status wound VAC is intact on the foot from previous treatment and there is no evidence of drainage from his lateral leg wound Labs Laboratory Tests Test 04/29/17 14:05 04/29/17 18:00 04/29/17 19:27 04/29/17 20:30 Glucose (Fingerstick) 77 mg/dL (70-99) 121 mg/dL (70-99) White Blood Count 6.6 x10^3/uL (4.0-11.0) 12.7 x10^3/uL (4.0-11.0) Hemoglobin 6.9 g/dL (13.0-17.5) 8.7 g/dL (13.0-17.5) Hematocrit 21.2 % (39.0-53.0) 26.4 % (39.0-53.0) Platelet Count 232 x10^3/uL (140-400) 165 x10^3/uL (140-400) Prothrombin Time 22.2 SEC (11.7-14.0) 25.4 SEC (11.7-14.0) Prothromb Time International Ratio 2.1 (0.8-1.1) 2.5 (0.8-1.1) Activated Partial Thromboplast Time 48 SEC (24-38) Red Blood Count 2.99 x10^6/uL (4.30-5.70) Mean Corpuscular Volume 88 fL (79-100) Mean Corpuscular Hemoglobin 29 pg (25-35) Mean Corpuscular Hemoglobin Concent 33 g/dL (31-37) Red Cell Distribution Width 17.2 % (11.5-14.5) Neutrophils (%) (Auto) 97 % (31-73) Lymphocytes (%) (Auto) 2 % (24-48) Monocytes (%) (Auto) 1 % (0-9) Eosinophils (%) (Auto) 0 % (0-3) Basophils (%) (Auto) 1 % (0-3) Neutrophils # (Auto) 12.3 x10^3uL (1.8-7.7) Lymphocytes # (Auto) 0.2 x10^3/uL (1.0-4.8) Monocytes # (Auto) 0.1 x10^3/uL (0.0-1.1) Eosinophils # (Auto) 0.0 x10^3/uL (0.0-0.7) Basophils # (Auto) 0.1 x10^3/uL (0.0-0.2) Segmented Neutrophils % 89 % (35-66) Band Neutrophils % 7 % (0-9) Lymphocytes % 3 % (24-48) Monocytes % 1 % (0-10) Platelet Estimate Adequate (ADEQUATE) Poikilocytosis Slight Anisocytosis Slight Hany Cells Few Schistocytes Occ Sodium Level 138 mmol/L (136-145) Potassium Level 4.6 mmol/L (3.5-5.1) Chloride Level 99 mmol/L (98-107) Carbon Dioxide Level 26 mmol/L (21-32) Anion Gap 13 (6-14) Blood Urea Nitrogen 27 mg/dL (8-26) Creatinine 3.9 mg/dL (0.7-1.3) Estimated GFR (Cockcroft-Gault) 15.9 BUN/Creatinine Ratio 7 (6-20) Glucose Level 162 mg/dL (70-99) Calcium Level 7.8 mg/dL (8.5-10.1) Total Bilirubin 1.2 mg/dL (0.2-1.0) Aspartate Amino Transf (AST/SGOT) 26 U/L (15-37) Alanine Aminotransferase (ALT/SGPT) 13 U/L (16-63) Alkaline Phosphatase 127 U/L (46-116) Total Protein 5.6 g/dL (6.4-8.2) Albumin 2.6 g/dL (3.4-5.0) Albumin/Globulin Ratio 0.9 (1.0-1.7) Test 04/29/17 21:53 04/30/17 06:50 04/30/17 13:13 04/30/17 17:22 Glucose (Fingerstick) 159 mg/dL (70-99) 127 mg/dL (70-99) 265 mg/dL (70-99) White Blood Count 9.7 x10^3/uL (4.0-11.0) Red Blood Count 2.86 x10^6/uL (4.30-5.70) Hemoglobin 8.2 g/dL (13.0-17.5) Hematocrit 25.0 % (39.0-53.0) Mean Corpuscular Volume 88 fL (79-100) Mean Corpuscular Hemoglobin 29 pg (25-35) Mean Corpuscular Hemoglobin Concent 33 g/dL (31-37) Red Cell Distribution Width 17.0 % (11.5-14.5) Platelet Count 202 x10^3/uL (140-400) Neutrophils (%) (Auto) 92 % (31-73) Lymphocytes (%) (Auto) 5 % (24-48) Monocytes (%) (Auto) 3 % (0-9) Eosinophils (%) (Auto) 0 % (0-3) Basophils (%) (Auto) 0 % (0-3) Neutrophils # (Auto) 8.9 x10^3uL (1.8-7.7) Lymphocytes # (Auto) 0.5 x10^3/uL (1.0-4.8) Monocytes # (Auto) 0.3 x10^3/uL (0.0-1.1) Eosinophils # (Auto) 0.0 x10^3/uL (0.0-0.7) Basophils # (Auto) 0.0 x10^3/uL (0.0-0.2) Prothrombin Time 25.6 SEC (11.7-14.0) Prothromb Time International Ratio 2.5 (0.8-1.1) Sodium Level 136 mmol/L (136-145) Potassium Level 5.1 mmol/L (3.5-5.1) Chloride Level 97 mmol/L (98-107) Carbon Dioxide Level 27 mmol/L (21-32) Anion Gap 12 (6-14) Blood Urea Nitrogen 34 mg/dL (8-26) Creatinine 4.6 mg/dL (0.7-1.3) Estimated GFR (Cockcroft-Gault) 13.1 Glucose Level 225 mg/dL (70-99) Calcium Level 7.8 mg/dL (8.5-10.1) 25-Hydroxy Vitamin D Total 10.3 ng/mL (30-100) Test 04/30/17 20:59 05/01/17 05:30 05/01/17 07:55 Glucose (Fingerstick) 250 mg/dL (70-99) 217 mg/dL (70-99) White Blood Count 10.6 x10^3/uL (4.0-11.0) Red Blood Count 2.61 x10^6/uL (4.30-5.70) Hemoglobin 7.4 g/dL (13.0-17.5) Hematocrit 22.9 % (39.0-53.0) Mean Corpuscular Volume 88 fL (79-100) Mean Corpuscular Hemoglobin 28 pg (25-35) Mean Corpuscular Hemoglobin Concent 32 g/dL (31-37) Red Cell Distribution Width 17.2 % (11.5-14.5) Platelet Count 255 x10^3/uL (140-400) Neutrophils (%) (Auto) 84 % (31-73) Lymphocytes (%) (Auto) 8 % (24-48) Monocytes (%) (Auto) 8 % (0-9) Eosinophils (%) (Auto) 0 % (0-3) Basophils (%) (Auto) 0 % (0-3) Neutrophils # (Auto) 8.9 x10^3uL (1.8-7.7) Lymphocytes # (Auto) 0.9 x10^3/uL (1.0-4.8) Monocytes # (Auto) 0.8 x10^3/uL (0.0-1.1) Eosinophils # (Auto) 0.0 x10^3/uL (0.0-0.7) Basophils # (Auto) 0.0 x10^3/uL (0.0-0.2) Prothrombin Time 29.6 SEC (11.7-14.0) Prothromb Time International Ratio 3.0 (0.8-1.1) Sodium Level 137 mmol/L (136-145) Potassium Level 3.8 mmol/L (3.5-5.1) Chloride Level 98 mmol/L (98-107) Carbon Dioxide Level 33 mmol/L (21-32) Anion Gap 6 (6-14) Blood Urea Nitrogen 28 mg/dL (8-26) Creatinine 3.5 mg/dL (0.7-1.3) Estimated GFR (Cockcroft-Gault) 18.0 Glucose Level 228 mg/dL (70-99) Calcium Level 8.5 mg/dL (8.5-10.1) Laboratory Tests Test 04/30/17 13:13 04/30/17 17:22 04/30/17 20:59 05/01/17 05:30 Glucose (Fingerstick) 127 mg/dL (70-99) 265 mg/dL (70-99) 250 mg/dL (70-99) White Blood Count 10.6 x10^3/uL (4.0-11.0) Red Blood Count 2.61 x10^6/uL (4.30-5.70) Hemoglobin 7.4 g/dL (13.0-17.5) Hematocrit 22.9 % (39.0-53.0) Mean Corpuscular Volume 88 fL (79-100) Mean Corpuscular Hemoglobin 28 pg (25-35) Mean Corpuscular Hemoglobin Concent 32 g/dL (31-37) Red Cell Distribution Width 17.2 % (11.5-14.5) Platelet Count 255 x10^3/uL (140-400) Neutrophils (%) (Auto) 84 % (31-73) Lymphocytes (%) (Auto) 8 % (24-48) Monocytes (%) (Auto) 8 % (0-9) Eosinophils (%) (Auto) 0 % (0-3) Basophils (%) (Auto) 0 % (0-3) Neutrophils # (Auto) 8.9 x10^3uL (1.8-7.7) Lymphocytes # (Auto) 0.9 x10^3/uL (1.0-4.8) Monocytes # (Auto) 0.8 x10^3/uL (0.0-1.1) Eosinophils # (Auto) 0.0 x10^3/uL (0.0-0.7) Basophils # (Auto) 0.0 x10^3/uL (0.0-0.2) Prothrombin Time 29.6 SEC (11.7-14.0) Prothromb Time International Ratio 3.0 (0.8-1.1) Sodium Level 137 mmol/L (136-145) Potassium Level 3.8 mmol/L (3.5-5.1) Chloride Level 98 mmol/L (98-107) Carbon Dioxide Level 33 mmol/L (21-32) Anion Gap 6 (6-14) Blood Urea Nitrogen 28 mg/dL (8-26) Creatinine 3.5 mg/dL (0.7-1.3) Estimated GFR (Cockcroft-Gault) 18.0 Glucose Level 228 mg/dL (70-99) Calcium Level 8.5 mg/dL (8.5-10.1) Test 05/01/17 07:55 Glucose (Fingerstick) 217 mg/dL (70-99) Assessment Assessment POD# [2], S/P [ORIF left distal femur fracture] Problems: Plan Plan of Care Continue wound care management of left foot Supportive medical care Knee and leg range of motion okay for transfers but maintain nonweightbearing APURVA SEVILLA MD May 01, 2017 10:52
[2017-05-01] MEDS: HYDROcodone/APAP 10/325 1 TAB TABLET PO PRN ×3 (11:37→23:20)
--- NOTE | 2017-05-01 12:54 | PDOC ---
SUBJECTIVE ROS ESRD DOing OK so far, no new complaints CVS: no Orthopnea, no CP RESP: no SOB, no SHAH GI: no Nausea, no Vomiting : no Dysuria, no Urgency OBJECTIVE Vital Signs Vital Signs Date Time Temp Pulse Resp B/P (MAP) Pulse Ox O2 Delivery O2 Flow Rate FiO2 05/01/17 11:37 21 95 Nasal Cannula 4.0 05/01/17 11:00 98.4 60 104/53 (70) 98.4 I & 0 Intake and Output 05/01/17 07:00 Intake Total 365 ml Output Total 0 ml Balance 365 ml Intake Oral 120 ml IV Total 245 ml Output Urine Total 0 ml PHYSICAL EXAM Physical Exam GEN: Awake, Oriented x 3, In no distress EYES: Vision Unchanged, Conjunctiva Normal EN: No EN Drainage, Mucous Membranes dryish NECK: no JVD, no JVP, Supple, no Thyromegaly CVS: S1S2, + Murmur, No Gallop, No Rub,no Edema RESP: no Rales, no Rhonchi,no Acc. Muscle Use GI: BS + ve, NO Bruit, Non Tender, Non Distended : no CVA tenderness, no Suprapubic Tenderness DIAGNOSIS/ASSESSMENT Assessment & Plan ESRD: Current fluid and E-lyte status does not necessitate emergent need for dialysis. Will re-evaluate for dialysis in the am and continue on MWF schedule. ANEMIA; Aranap as ordered, Transfuse with next HD as needed HypoTN: remains on Son for now; consider reECHO BONE & MINERAL: follow phos and later binder regimen Discussion re Stopping HD noted Discussed Plan of Care with family () at bedside Problems: COMMENT/RELEVANT DATA Meds Current Medications Medications (Trade) Dose Ordered Sig/Nanette Start Time Stop Time Status Last Admin Dose Admin Acetaminophen/ Hydrocodone Bitart (Lortab 10/325) 1 tab PRN Q6HRS PRN 04/28/17 18:45 05/01/17 11:37 1 TAB Albumin Human 500 ml @ As Directed STK-MED ONCE 04/29/17 17:50 04/29/17 17:51 DC Atorvastatin Calcium (Lipitor) 40 mg DAILY 04/29/17 09:00 05/01/17 09:23 40 MG Calcium Carbonate/ Glycine (Tums) 500 mg TIDAC 04/29/17 07:30 05/01/17 12:09 500 MG Cefazolin Sodium/ Dextrose 50 ml @ As Directed STK-MED ONCE 04/29/17 16:46 04/29/17 16:47 DC Citalopram Hydrobromide (CeleXA) 20 mg DAILY 04/29/17 09:00 05/01/17 09:24 20 MG Clonazepam (KlonoPIN) 0.5 mg TID 04/28/17 22:00 05/01/17 09:23 0.5 MG Darbepoetin Noel (Aranesp) 60 mcg WEEKLYHS 04/29/17 21:00 04/29/17 21:00 DC Dextrose (Dextrose 50%-Water Syringe) 12.5 gm PRN Q15MIN PRN 04/29/17 10:00 Diphenhydramine HCl (Benadryl) 25 mg 1X PRN PRN 04/30/17 08:45 05/01/17 08:44 DC Diphenoxylate HCl/ Atropine (Lomotil) 1 tab PRN QID PRN 04/28/17 22:00 Ephedrine Sulfate (Akovaz) 50 mg STK-MED ONCE 04/29/17 16:47 04/29/17 16:48 DC Famotidine (Pepcid) 20 mg Q48H 05/01/17 09:00 05/01/17 09:24 20 MG Fentanyl Citrate (Fentanyl 2ml Vial) 50 mcg PRN Q5MIN PRN 04/29/17 20:30 04/30/17 20:29 DC Ferrous Sulfate (Feosol) 325 mg DAILY 04/29/17 09:00 05/01/17 09:25 325 MG Glycopyrrolate (Robinul) 1 mg STK-MED ONCE 04/29/17 17:33 04/29/17 17:34 DC Hydromorphone HCl (Dilaudid) 0.2 mg PRN Q10MIN PRN 04/29/17 20:30 04/30/17 20:29 DC Info (PHARMACY MONITORING -- do not chart) 1 each PRN DAILY PRN 04/30/17 08:45 UNV Insulin Aspart (NovoLOG) 0-7 UNITS TIDWMEALS 04/29/17 12:00 05/01/17 12:11 4 UNITS Insulin Detemir (Levemir) 12 units QHS 04/29/17 21:00 04/30/17 21:01 12 UNITS Lidocaine HCl (Lidocaine Pf 2% Vial) 5 ml STK-MED ONCE 04/29/17 15:45 04/29/17 15:46 DC Lisinopril (Prinivil) 10 mg DAILY 04/29/17 09:00 05/01/17 09:25 10 MG Midodrine (Proamatine) 5 mg BIDBFRMEAL 04/29/17 07:30 05/01/17 07:55 5 MG Morphine Sulfate 2 mg PRN Q10MIN PRN 04/29/17 20:30 04/30/17 20:29 DC Neostigmine Methylsulfate (Bloxiverz) 10 mg STK-MED ONCE 04/29/17 17:32 04/29/17 17:33 DC Ondansetron HCl (Zofran) 4 mg PRN Q6HRS PRN 04/29/17 20:30 04/30/17 20:29 DC Oxycodone HCl (OxyCONTIN) 10 mg BID 04/29/17 09:00 05/01/17 09:25 10 MG Phenylephrine HCl 80 mg/Sodium Chloride 258 ml @ 0 mls/hr CONT PRN 04/29/17 20:30 05/01/17 05:56 7.5 MLS/HR Pioglitazone HCl (Actos) 45 mg DAILY 04/29/17 09:00 05/01/17 09:24 45 MG Polyethylene Glycol (miraLAX PACKET) 17 gm PRN DAILY PRN 04/28/17 22:00 Propofol 20 ml @ As Directed STK-MED ONCE 04/29/17 15:45 04/29/17 15:46 DC Rocuronium Apex (Zemuron) 50 mg STK-MED ONCE 04/29/17 17:23 04/29/17 17:24 DC Senna/Docusate Sodium (Senna Plus) 2 tab PRN DAILY PRN 04/28/17 21:15 Sodium Chloride 1,000 ml @ 400 mls/hr Q2H30M PRN 04/30/17 08:33 04/30/17 20:32 DC Sodium Chloride (Sodium Chloride) 50 ml STK-MED ONCE 04/29/17 17:54 04/29/17 17:55 DC Succinylcholine Chloride (Anectine) 200 mg STK-MED ONCE 04/29/17 15:46 04/29/17 15:47 DC Trazodone HCl (Desyrel) 50 mg PRN QHS PRN 04/28/17 21:15 04/30/17 20:59 50 MG Vasopressin (Vasostrict) 20 unit STK-MED ONCE 04/29/17 17:53 04/29/17 17:54 DC Vitamin B Complex/ Vitamin C (Saphpire-Sara) 1 tab DAILY 04/29/17 09:00 05/01/17 09:24 1 TAB Warfarin Sodium (Coumadin Per Physician) 1 each PRN DAILY PRN 04/28/17 22:15 04/30/17 11:15 1 EACH Warfarin Sodium (Coumadin) 3 mg DAILY16 04/29/17 16:00 04/30/17 17:33 3 MG Lab Laboratory Tests Test 04/30/17 13:13 04/30/17 17:22 04/30/17 20:59 05/01/17 05:30 Glucose (Fingerstick) 127 mg/dL (70-99) 265 mg/dL (70-99) 250 mg/dL (70-99) White Blood Count 10.6 x10^3/uL (4.0-11.0) Red Blood Count 2.61 x10^6/uL (4.30-5.70) Hemoglobin 7.4 g/dL (13.0-17.5) Hematocrit 22.9 % (39.0-53.0) Mean Corpuscular Volume 88 fL (79-100) Mean Corpuscular Hemoglobin 28 pg (25-35) Mean Corpuscular Hemoglobin Concent 32 g/dL (31-37) Red Cell Distribution Width 17.2 % (11.5-14.5) Platelet Count 255 x10^3/uL (140-400) Neutrophils (%) (Auto) 84 % (31-73) Lymphocytes (%) (Auto) 8 % (24-48) Monocytes (%) (Auto) 8 % (0-9) Eosinophils (%) (Auto) 0 % (0-3) Basophils (%) (Auto) 0 % (0-3) Neutrophils # (Auto) 8.9 x10^3uL (1.8-7.7) Lymphocytes # (Auto) 0.9 x10^3/uL (1.0-4.8) Monocytes # (Auto) 0.8 x10^3/uL (0.0-1.1) Eosinophils # (Auto) 0.0 x10^3/uL (0.0-0.7) Basophils # (Auto) 0.0 x10^3/uL (0.0-0.2) Prothrombin Time 29.6 SEC (11.7-14.0) Prothromb Time International Ratio 3.0 (0.8-1.1) Sodium Level 137 mmol/L (136-145) Potassium Level 3.8 mmol/L (3.5-5.1) Chloride Level 98 mmol/L (98-107) Carbon Dioxide Level 33 mmol/L (21-32) Anion Gap 6 (6-14) Blood Urea Nitrogen 28 mg/dL (8-26) Creatinine 3.5 mg/dL (0.7-1.3) Estimated GFR (Cockcroft-Gault) 18.0 Glucose Level 228 mg/dL (70-99) Calcium Level 8.5 mg/dL (8.5-10.1) Test 05/01/17 07:55 05/01/17 11:59 Glucose (Fingerstick) 217 mg/dL (70-99) 205 mg/dL (70-99) YUMIKO SCHAFER MD May 01, 2017 12:54
--- NOTE | 2017-05-01 15:42 | CONS ---
DATE OF CONSULTATION: 05/01/2017 I saw him on 05/01/2017 at the request of Dr. Araujo, our family physician. 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 Prater, and he was transferred to [facility] on 04/08/2017 for continued care. He is doing satisfactorily, had some problem with left knee pain for which I have injected. He had some degree of flexion contracture, left knee and he is working with Physical Therapy and has been getting up. He apparently slid off bed, but no fall to the floor or anything on 04/26/2017. He was seen by Dr. Prater, his orthopedic surgeon, in the office on 04/28/2017 and noted him with some displacement of the distal femoral fracture, so he did open reduction and internal fixation using plate and screws, and the patient postop decided to get off hemodialysis after holidays as he feels like he is never going to walk and he does not want to live if he could not walk. The patient prior to the present hospitalization has lived with his and he requires some help with transfers. The patient also with known congestive heart failure, atrial fibrillation, hypertension, hyperlipidemia. ALLERGIES: The patient is not known allergic to any medication. PHYSICAL EXAMINATION: Today, revealed a middle-aged male. He is alert, oriented to place and person, follows commands appropriately. He had 5/5 grade muscle strength in his upper extremities with relatively increased weakness in hand intrinsic muscles where he had some muscle atrophy. He also had fairly good strength in his right lower extremity. He had dressing to his left thigh and he had wound VAC placed to his left foot. I have not tested his transfers or ambulation skills at this time. He had decreased touch and pinprick sensation over sock and glove distribution. Deep tendon reflexes are decreased to absent overall. ASSESSMENT: The patient is status post open reduction and internal fixation of left distal femur fracture using plate and screws after he had some displacement of the fracture after he had previous intramedullary elieser and pin fixation. The patient with known diabetes mellitus with peripheral neuropathy, end-stage renal disease, on hemodialysis, chronic left foot wound for which he had debridement and wound VAC placed, degenerative joints of left knee with some degree of flexion contracture, hypertension, hyperlipidemia, congestive heart failure, atrial fibrillation, peripheral vascular disease. RECOMMENDATIONS: I spoke to him and his sister and Dr. Araujo to try to provide him comfort care and to prison care unit or back to long-term acute care unit or home with home health when he is medically stable. Dr. Araujo, I appreciate asking me to participate in the care of this interesting patient. I will be glad to follow him with you as needed for the rehabilitation. MORRIS HARMAN MD DR: SABI/makenna JOB#: [id number] / [id number]
--- NOTE | 2017-05-01 16:04 | CONS ---
DATE OF CONSULTATION: ATTENDING PHYSICIAN: Dr. Araujo. REASON FOR CONSULTATION: The patient was seen at the request of Dr. Araujo for rehab evaluation. HISTORY OF PRESENT ILLNESS: This is a 61-year-old male, known to me. The patient was transferred here from [facility] after Dr. Prater saw him in the office and x-rays revealed some displacement of distal femoral shaft fracture, and he underwent open reduction and internal fixation of left distal femur fracture using plate and screws. The patient apparently slid without any fall from the bed on 04/26/2017 during his stay at [facility]. The patient decided that he is going to stop hemodialysis as he might not be able to get up and walk. The patient with diabetes mellitus with peripheral neuropathy, end-stage renal disease, on hemodialysis; status post right below knee amputation for which he uses a prosthesis and he had left second toe amputated and afterwards it got infected and he had debrided and wound VAC placement. The patient MORRIS HARMAN MD DR: SABI/makenna JOB#: [id number] / [id number]
[2017-05-01] MEDS: WARFARIN 3 MG TABLET. PO SCH (16:36)
[2017-05-01] MEDS: INSULIN DETEMIR 300 UNITS/3 ML INSULN.PEN. SQ SCH (21:41)
[2017-05-02] VITALS (24 sets, daily range): BP systolic 78–124; BP diastolic 38–60
[2017-05-02 05:40] LABS: BASO % 0 % (0-3); EOS % 3 % (0-3); HEMATOCRIT 23.4 % (39.0-53.0); HEMOGLOBIN 7.7 g/dL (13.0-17.5); LYMPH % 11 % (24-48); MEAN CORPUSCULAR HEMOGLOBIN 29 pg (25-35); MEAN CORPUSCULAR HGB CONC 33 g/dL (31-37); MEAN CORPUSCULAR VOLUME 89 fL (79-100); MONO % 7 % (0-9); NEUT % 79 % (31-73); PLATELET COUNT 288 x10^3/uL (140-400); RED BLOOD COUNT 2.64 x10^6/uL (4.30-5.70); RED CELL DISTRIBUTION WIDTH 17.3 % (11.5-14.5); WHITE BLOOD COUNT 8.9 x10^3/uL (4.0-11.0)
[2017-05-02 05:55] LABS: CALCIUM 8.1 mg/dL (8.5-10.1); CREATININE 4.6 mg/dL (0.7-1.3); GFR 13.1
[2017-05-02 06:13] LABS: INR 2.9 (0.8-1.1); PROTHROMBIN TIME PATIENT 28.9 SEC (11.7-14.0)
[2017-05-02] MEDS: fentaNYL PF VIAL 100 MCG/2 ML VIAL IV PRN ×5 (07:37→23:22)
[2017-05-02] MEDS: LISINOPRIL 10 MG TABLET PO SCH (09:00)
[2017-05-02] MEDS: PHENYLEPHRINE INJ 80 MG in IV NORMAL SALINE 250ML 250 ML IV PRN ×2 (09:11→21:09)
[2017-05-02] MEDS: FOLIC/VIT B COMP W-C (RENAL) TABLET. PO SCH (09:12)
[2017-05-02] MEDS: oxyCODONE ER 10 MG TAB.ER.12H PO SCH ×2 (09:12→21:09)
[2017-05-02] MEDS: CALCIUM CARBONATE 500 MG TAB.CHEW PO SCH ×3 (09:12→16:38)
[2017-05-02] MEDS: clonazePAM 0.5 MG TABLET PO SCH ×3 (09:12→21:09)
[2017-05-02] MEDS: ATORVASTATIN CALCIUM 40 MG TABLET. PO SCH (09:12)
[2017-05-02] MEDS: CITALOPRAM 20 MG TABLET. PO SCH (09:12)
[2017-05-02] MEDS: PIOGLITAZONE 15 MG TABLET. PO SCH (09:13)
[2017-05-02] MEDS: INSULIN ASPART 300 UNITS/3 ML INSULN.PEN SQ SCH ×3 (09:13→17:40)
[2017-05-02] MEDS: MIDODRINE 5 MG TABLET PO SCH ×2 (09:16→16:38)
--- NOTE | 2017-05-02 10:35 | PDOC ---
SUBJECTIVE ROS ESRD doing OK, now new complaints, remains on Pressors CVS: no Orthopnea, non CP RESP: on SOB, no SHAH GI: no Nausea, no Vomiting : no Dysuria, no Urgency OBJECTIVE Vital Signs Vital Signs Date Time Temp Pulse Resp B/P (MAP) Pulse Ox O2 Delivery O2 Flow Rate FiO2 05/02/17 09:16 66 106/51 05/02/17 09:12 9 100 Nasal Cannula 6.0 05/02/17 04:00 98.1 98.1 I & 0 Intake and Output 05/02/17 07:00 Intake Total 767 ml Output Total 0 ml Balance 767 ml Intake Oral 530 ml IV Total 163 ml Other 74 ml Output Urine Total 0 ml PHYSICAL EXAM Physical Exam GEN: Awake, Oriented x 3, In no distress EYES: Vision Unchanged, Conjunctiva Normal EN: No EN Drainage, Mucous Membranes dryish NECK: no JVD, no JVP, Supple, no Thyromegaly CVS: S1S2, + Murmur, No Gallop, No Rub,no Edema RESP: no Rales, no Rhonchi,no Acc. Muscle Use GI: BS + ve, NO Bruit, Non Tender, Non Distended : no CVA tenderness, no Suprapubic Tenderness DIAGNOSIS/ASSESSMENT Assessment & Plan ESRD: Current fluid and E-lyte status does not necessitate emergent need for dialysis. Will re-evaluate for dialysis in the am and continue on MWF schedule. ANEMIA; Aranesp as ordered, Transfuse with next HD as needed if hgb < 7 HypoTN: remains on Son for now; consider reECHO BONE & MINERAL: follow phos and later binder regimen Discussion re Stopping HD noted Discussed Plan of Care with family () at bedside Problems: COMMENT/RELEVANT DATA Meds Current Medications Medications (Trade) Dose Ordered Sig/Nanette Start Time Stop Time Status Last Admin Dose Admin Acetaminophen/ Hydrocodone Bitart (Lortab 10/325) 1 tab PRN Q6HRS PRN 04/28/17 18:45 05/01/17 23:20 1 TAB Albumin Human 500 ml @ As Directed STK-MED ONCE 04/29/17 17:50 04/29/17 17:51 DC Atorvastatin Calcium (Lipitor) 40 mg DAILY 04/29/17 09:00 05/02/17 09:12 40 MG Calcium Carbonate/ Glycine (Tums) 500 mg TIDAC 04/29/17 07:30 05/02/17 09:12 500 MG Cefazolin Sodium/ Dextrose 50 ml @ As Directed STK-MED ONCE 04/29/17 16:46 04/29/17 16:47 DC Citalopram Hydrobromide (CeleXA) 20 mg DAILY 04/29/17 09:00 05/02/17 09:12 20 MG Clonazepam (KlonoPIN) 0.5 mg TID 04/28/17 22:00 05/02/17 09:12 0.5 MG Darbepoetin Noel (Aranesp) 60 mcg WEEKLYHS 04/29/17 21:00 04/29/17 21:00 DC Dextrose (Dextrose 50%-Water Syringe) 12.5 gm PRN Q15MIN PRN 04/29/17 10:00 Diphenhydramine HCl (Benadryl) 25 mg 1X PRN PRN 04/30/17 08:45 05/01/17 08:44 DC Diphenoxylate HCl/ Atropine (Lomotil) 1 tab PRN QID PRN 04/28/17 22:00 Ephedrine Sulfate (Akovaz) 50 mg STK-MED ONCE 04/29/17 16:47 04/29/17 16:48 DC Famotidine (Pepcid) 20 mg Q48H 05/01/17 09:00 05/01/17 09:24 20 MG Fentanyl Citrate (Fentanyl 2ml Vial) 50 mcg PRN Q5MIN PRN 04/29/17 20:30 04/30/17 20:29 DC Ferrous Sulfate (Feosol) 325 mg DAILY 04/29/17 09:00 05/01/17 12:55 DC 05/01/17 09:25 325 MG Glycopyrrolate (Robinul) 1 mg STK-MED ONCE 04/29/17 17:33 04/29/17 17:34 DC Hydromorphone HCl (Dilaudid) 0.2 mg PRN Q10MIN PRN 04/29/17 20:30 04/30/17 20:29 DC Info (PHARMACY MONITORING -- do not chart) 1 each PRN DAILY PRN 04/30/17 08:45 UNV Insulin Aspart (NovoLOG) 0-7 UNITS TIDWMEALS 04/29/17 12:00 05/02/17 09:13 4 UNITS Insulin Detemir (Levemir) 12 units QHS 04/29/17 21:00 05/01/17 21:41 12 UNITS Lidocaine HCl (Lidocaine Pf 2% Vial) 5 ml STK-MED ONCE 04/29/17 15:45 04/29/17 15:46 DC Lisinopril (Prinivil) 10 mg DAILY 04/29/17 09:00 05/01/17 09:25 10 MG Midodrine (Proamatine) 5 mg BIDBFRMEAL 04/29/17 07:30 05/02/17 09:16 5 MG Morphine Sulfate 2 mg PRN Q10MIN PRN 04/29/17 20:30 04/30/17 20:29 DC Neostigmine Methylsulfate (Bloxiverz) 10 mg STK-MED ONCE 04/29/17 17:32 04/29/17 17:33 DC Ondansetron HCl (Zofran) 4 mg PRN Q6HRS PRN 04/29/17 20:30 04/30/17 20:29 DC Oxycodone HCl (OxyCONTIN) 10 mg BID 04/29/17 09:00 05/02/17 09:12 10 MG Phenylephrine HCl 80 mg/Sodium Chloride 258 ml @ 0 mls/hr CONT PRN 04/29/17 20:30 05/02/17 09:11 13.54 MLS/HR Pioglitazone HCl (Actos) 45 mg DAILY 04/29/17 09:00 05/02/17 09:13 45 MG Polyethylene Glycol (miraLAX PACKET) 17 gm PRN DAILY PRN 04/28/17 22:00 Propofol 20 ml @ As Directed STK-MED ONCE 04/29/17 15:45 04/29/17 15:46 DC Rocuronium [place] (Zemuron) 50 mg STK-MED ONCE 04/29/17 17:23 04/29/17 17:24 DC Senna/Docusate Sodium (Senna Plus) 2 tab PRN DAILY PRN 04/28/17 21:15 Sodium Chloride 1,000 ml @ 400 mls/hr Q2H30M PRN 04/30/17 08:33 04/30/17 20:32 DC Sodium Chloride (Sodium Chloride) 50 ml STK-MED ONCE 04/29/17 17:54 04/29/17 17:55 DC Succinylcholine Chloride (Anectine) 200 mg STK-MED ONCE 04/29/17 15:46 04/29/17 15:47 DC Trazodone HCl (Desyrel) 50 mg PRN QHS PRN 04/28/17 21:15 04/30/17 20:59 50 MG Vasopressin (Vasostrict) 20 unit STK-MED ONCE 04/29/17 17:53 04/29/17 17:54 DC Vitamin B Complex/ Vitamin C (Sapphire-Sara) 1 tab DAILY 04/29/17 09:00 05/02/17 09:12 1 TAB Warfarin Sodium (Coumadin Per Physician) 1 each PRN DAILY PRN 04/28/17 22:15 04/30/17 11:15 1 EACH Warfarin Sodium (Coumadin) 3 mg DAILY16 04/29/17 16:00 05/01/17 16:36 3 MG Lab Laboratory Tests Test 05/01/17 11:59 05/01/17 17:00 05/01/17 21:39 05/02/17 05:00 Glucose (Fingerstick) 205 mg/dL (70-99) 194 mg/dL (70-99) 226 mg/dL (70-99) Prothrombin Time 28.9 SEC (11.7-14.0) Prothromb Time International Ratio 2.9 (0.8-1.1) Test 05/02/17 05:10 White Blood Count 8.9 x10^3/uL (4.0-11.0) Red Blood Count 2.64 x10^6/uL (4.30-5.70) Hemoglobin 7.7 g/dL (13.0-17.5) Hematocrit 23.4 % (39.0-53.0) Mean Corpuscular Volume 89 fL (79-100) Mean Corpuscular Hemoglobin 29 pg (25-35) Mean Corpuscular Hemoglobin Concent 33 g/dL (31-37) Red Cell Distribution Width 17.3 % (11.5-14.5) Platelet Count 288 x10^3/uL (140-400) Neutrophils (%) (Auto) 79 % (31-73) Lymphocytes (%) (Auto) 11 % (24-48) Monocytes (%) (Auto) 7 % (0-9) Eosinophils (%) (Auto) 3 % (0-3) Basophils (%) (Auto) 0 % (0-3) Neutrophils # (Auto) 7.0 x10^3uL (1.8-7.7) Lymphocytes # (Auto) 1.0 x10^3/uL (1.0-4.8) Monocytes # (Auto) 0.6 x10^3/uL (0.0-1.1) Eosinophils # (Auto) 0.3 x10^3/uL (0.0-0.7) Basophils # (Auto) 0.0 x10^3/uL (0.0-0.2) Sodium Level 135 mmol/L (136-145) Potassium Level 4.0 mmol/L (3.5-5.1) Chloride Level 96 mmol/L (98-107) Carbon Dioxide Level 31 mmol/L (21-32) Anion Gap 8 (6-14) Blood Urea Nitrogen 38 mg/dL (8-26) Creatinine 4.6 mg/dL (0.7-1.3) Estimated GFR (Cockcroft-Gault) 13.1 Glucose Level 234 mg/dL (70-99) Calcium Level 8.1 mg/dL (8.5-10.1) YUMIKO SCHAFER MD May 02, 2017 10:35
--- NOTE | 2017-05-02 10:41 | PDOC ---
IM PROGRESS NOTES- Subjective Subjective No pain,dyspnea,dizziness.c/o leg weakness but feels it is due to pain.Wants to wait on any further workup or treatment. Objective Vitals Vital Signs Date Time Temp Pulse Resp B/P (MAP) Pulse Ox O2 Delivery O2 Flow Rate FiO2 05/02/17 09:16 66 106/51 05/02/17 09:12 9 100 Nasal Cannula 6.0 05/02/17 04:00 98.1 98.1 Input & Output Intake and Output 05/02/17 07:00 Intake Total 767 ml Output Total 0 ml Balance 767 ml Intake Oral 530 ml IV Total 163 ml Other 74 ml Output Urine Total 0 ml Physical Exam Physical Exam HEENT: Head is atraumatic. Pupils equal. Oral cavity, no congestion. He has a central line in the neck. CHEST: Symmetrical. CARDIOVASCULAR: S1, S2. LUNGS: Clear. ABDOMEN: Soft. No mass palpable. EXTREMITIES: Right [id number] amputation stump. Left foot, the patient has a dressing, had a previous amputation of the left second toe dressing left thigh. NEUROLOGICAL EXAMINATION: alert,weak. Moving upper extremities.Not moving left lower extremity- ? due to pain. The patient has an AV shunt in the left upper arm. He has ulcers on the left third and fourth fingers on the left hand from chronic vascular disease. Labs Laboratory Tests Test 04/30/17 13:13 04/30/17 17:22 04/30/17 20:59 05/01/17 05:30 Glucose (Fingerstick) 127 mg/dL (70-99) 265 mg/dL (70-99) 250 mg/dL (70-99) White Blood Count 10.6 x10^3/uL (4.0-11.0) Red Blood Count 2.61 x10^6/uL (4.30-5.70) Hemoglobin 7.4 g/dL (13.0-17.5) Hematocrit 22.9 % (39.0-53.0) Mean Corpuscular Volume 88 fL (79-100) Mean Corpuscular Hemoglobin 28 pg (25-35) Mean Corpuscular Hemoglobin Concent 32 g/dL (31-37) Red Cell Distribution Width 17.2 % (11.5-14.5) Platelet Count 255 x10^3/uL (140-400) Neutrophils (%) (Auto) 84 % (31-73) Lymphocytes (%) (Auto) 8 % (24-48) Monocytes (%) (Auto) 8 % (0-9) Eosinophils (%) (Auto) 0 % (0-3) Basophils (%) (Auto) 0 % (0-3) Neutrophils # (Auto) 8.9 x10^3uL (1.8-7.7) Lymphocytes # (Auto) 0.9 x10^3/uL (1.0-4.8) Monocytes # (Auto) 0.8 x10^3/uL (0.0-1.1) Eosinophils # (Auto) 0.0 x10^3/uL (0.0-0.7) Basophils # (Auto) 0.0 x10^3/uL (0.0-0.2) Prothrombin Time 29.6 SEC (11.7-14.0) Prothromb Time International Ratio 3.0 (0.8-1.1) Sodium Level 137 mmol/L (136-145) Potassium Level 3.8 mmol/L (3.5-5.1) Chloride Level 98 mmol/L (98-107) Carbon Dioxide Level 33 mmol/L (21-32) Anion Gap 6 (6-14) Blood Urea Nitrogen 28 mg/dL (8-26) Creatinine 3.5 mg/dL (0.7-1.3) Estimated GFR (Cockcroft-Gault) 18.0 Glucose Level 228 mg/dL (70-99) Calcium Level 8.5 mg/dL (8.5-10.1) Test 05/01/17 07:55 05/01/17 11:59 05/01/17 17:00 05/01/17 21:39 Glucose (Fingerstick) 217 mg/dL (70-99) 205 mg/dL (70-99) 194 mg/dL (70-99) 226 mg/dL (70-99) Test 05/02/17 05:00 05/02/17 05:10 Prothrombin Time 28.9 SEC (11.7-14.0) Prothromb Time International Ratio 2.9 (0.8-1.1) White Blood Count 8.9 x10^3/uL (4.0-11.0) Red Blood Count 2.64 x10^6/uL (4.30-5.70) Hemoglobin 7.7 g/dL (13.0-17.5) Hematocrit 23.4 % (39.0-53.0) Mean Corpuscular Volume 89 fL (79-100) Mean Corpuscular Hemoglobin 29 pg (25-35) Mean Corpuscular Hemoglobin Concent 33 g/dL (31-37) Red Cell Distribution Width 17.3 % (11.5-14.5) Platelet Count 288 x10^3/uL (140-400) Neutrophils (%) (Auto) 79 % (31-73) Lymphocytes (%) (Auto) 11 % (24-48) Monocytes (%) (Auto) 7 % (0-9) Eosinophils (%) (Auto) 3 % (0-3) Basophils (%) (Auto) 0 % (0-3) Neutrophils # (Auto) 7.0 x10^3uL (1.8-7.7) Lymphocytes # (Auto) 1.0 x10^3/uL (1.0-4.8) Monocytes # (Auto) 0.6 x10^3/uL (0.0-1.1) Eosinophils # (Auto) 0.3 x10^3/uL (0.0-0.7) Basophils # (Auto) 0.0 x10^3/uL (0.0-0.2) Sodium Level 135 mmol/L (136-145) Potassium Level 4.0 mmol/L (3.5-5.1) Chloride Level 96 mmol/L (98-107) Carbon Dioxide Level 31 mmol/L (21-32) Anion Gap 8 (6-14) Blood Urea Nitrogen 38 mg/dL (8-26) Creatinine 4.6 mg/dL (0.7-1.3) Estimated GFR (Cockcroft-Gault) 13.1 Glucose Level 234 mg/dL (70-99) Calcium Level 8.1 mg/dL (8.5-10.1) Laboratory Tests Test 05/01/17 11:59 05/01/17 17:00 05/01/17 21:39 05/02/17 05:00 Glucose (Fingerstick) 205 mg/dL (70-99) 194 mg/dL (70-99) 226 mg/dL (70-99) Prothrombin Time 28.9 SEC (11.7-14.0) Prothromb Time International Ratio 2.9 (0.8-1.1) Test 05/02/17 05:10 White Blood Count 8.9 x10^3/uL (4.0-11.0) Red Blood Count 2.64 x10^6/uL (4.30-5.70) Hemoglobin 7.7 g/dL (13.0-17.5) Hematocrit 23.4 % (39.0-53.0) Mean Corpuscular Volume 89 fL (79-100) Mean Corpuscular Hemoglobin 29 pg (25-35) Mean Corpuscular Hemoglobin Concent 33 g/dL (31-37) Red Cell Distribution Width 17.3 % (11.5-14.5) Platelet Count 288 x10^3/uL (140-400) Neutrophils (%) (Auto) 79 % (31-73) Lymphocytes (%) (Auto) 11 % (24-48) Monocytes (%) (Auto) 7 % (0-9) Eosinophils (%) (Auto) 3 % (0-3) Basophils (%) (Auto) 0 % (0-3) Neutrophils # (Auto) 7.0 x10^3uL (1.8-7.7) Lymphocytes # (Auto) 1.0 x10^3/uL (1.0-4.8) Monocytes # (Auto) 0.6 x10^3/uL (0.0-1.1) Eosinophils # (Auto) 0.3 x10^3/uL (0.0-0.7) Basophils # (Auto) 0.0 x10^3/uL (0.0-0.2) Sodium Level 135 mmol/L (136-145) Potassium Level 4.0 mmol/L (3.5-5.1) Chloride Level 96 mmol/L (98-107) Carbon Dioxide Level 31 mmol/L (21-32) Anion Gap 8 (6-14) Blood Urea Nitrogen 38 mg/dL (8-26) Creatinine 4.6 mg/dL (0.7-1.3) Estimated GFR (Cockcroft-Gault) 13.1 Glucose Level 234 mg/dL (70-99) Calcium Level 8.1 mg/dL (8.5-10.1) Assessment Assessment Hypotension on pressors levophed 1. Shifting of the distal femoral fragment. The patient had intramedullary nailing done earlier this month, is going to go for revision. 2. End-stage renal disease, on hemodialysis. 3. Insulin-dependent diabetes. 4. Right [id number] amputation. 5. Congestive heart failure, chronic, systolic.30% EJF 6. Chronic atrial fibrillation, on Coumadin. PLAN: ORIF L femur fx POD 2 - ortho following hypotension - improved - still on vasopressor anemia a/c - post PRC and ffp Hgb 7.4 anticoagulation - INR 3.0- last dose Warfarin 3mg 04/30 - pharmacy managing DM - BS 127-265 ESRD - hemodialysis sleep apnea - CPAP nightly at hs CAD - cardiology following - asymptomatic Monitor for possible left lower extremity weakness.He wants to wait and see how he does after the pain medication. Diabetes not well controlled. Plan Plan SURI MCCRARY MD May 02, 2017 10:41
[2017-05-02] MEDS: HYDROcodone/APAP 10/325 1 TAB TABLET PO PRN (13:53)
--- NOTE | 2017-05-02 13:57 | PDOC ---
PROGRESS NOTES Subjective Subjective Patient requiring jose drip to maintain BP, no new cardiac complaints Objective Objective Vital Signs Date Time Temp Pulse Resp B/P (MAP) Pulse Ox O2 Delivery O2 Flow Rate FiO2 05/02/17 13:53 19 98 Nasal Cannula 6.0 05/02/17 13:00 66 124/50 (74) 05/02/17 12:00 98.4 98.4 Intake and Output 05/02/17 07:00 Intake Total 767 ml Output Total 0 ml Balance 767 ml Intake Oral 530 ml IV Total 163 ml Other 74 ml Output Urine Total 0 ml Physical Exam Physical Exam neck: 1CM JVD lungs: no rales heart: muffled heart sounds, no rub ext: no changes in edema Assessment Assessment Pt is hemodynamically labile, will get an echocardiogram to evaluate for possible effusion Comment Review of Relevant I have reviewed the following items maria teresa (where applicable) has been applied. Labs Laboratory Tests Test 04/30/17 17:22 04/30/17 20:59 05/01/17 05:30 05/01/17 07:55 Glucose (Fingerstick) 265 mg/dL (70-99) 250 mg/dL (70-99) 217 mg/dL (70-99) White Blood Count 10.6 x10^3/uL (4.0-11.0) Red Blood Count 2.61 x10^6/uL (4.30-5.70) Hemoglobin 7.4 g/dL (13.0-17.5) Hematocrit 22.9 % (39.0-53.0) Mean Corpuscular Volume 88 fL (79-100) Mean Corpuscular Hemoglobin 28 pg (25-35) Mean Corpuscular Hemoglobin Concent 32 g/dL (31-37) Red Cell Distribution Width 17.2 % (11.5-14.5) Platelet Count 255 x10^3/uL (140-400) Neutrophils (%) (Auto) 84 % (31-73) Lymphocytes (%) (Auto) 8 % (24-48) Monocytes (%) (Auto) 8 % (0-9) Eosinophils (%) (Auto) 0 % (0-3) Basophils (%) (Auto) 0 % (0-3) Neutrophils # (Auto) 8.9 x10^3uL (1.8-7.7) Lymphocytes # (Auto) 0.9 x10^3/uL (1.0-4.8) Monocytes # (Auto) 0.8 x10^3/uL (0.0-1.1) Eosinophils # (Auto) 0.0 x10^3/uL (0.0-0.7) Basophils # (Auto) 0.0 x10^3/uL (0.0-0.2) Prothrombin Time 29.6 SEC (11.7-14.0) Prothromb Time International Ratio 3.0 (0.8-1.1) Sodium Level 137 mmol/L (136-145) Potassium Level 3.8 mmol/L (3.5-5.1) Chloride Level 98 mmol/L (98-107) Carbon Dioxide Level 33 mmol/L (21-32) Anion Gap 6 (6-14) Blood Urea Nitrogen 28 mg/dL (8-26) Creatinine 3.5 mg/dL (0.7-1.3) Estimated GFR (Cockcroft-Gault) 18.0 Glucose Level 228 mg/dL (70-99) Calcium Level 8.5 mg/dL (8.5-10.1) Test 05/01/17 11:59 05/01/17 17:00 05/01/17 21:39 05/02/17 05:00 Glucose (Fingerstick) 205 mg/dL (70-99) 194 mg/dL (70-99) 226 mg/dL (70-99) Prothrombin Time 28.9 SEC (11.7-14.0) Prothromb Time International Ratio 2.9 (0.8-1.1) Test 05/02/17 05:10 White Blood Count 8.9 x10^3/uL (4.0-11.0) Red Blood Count 2.64 x10^6/uL (4.30-5.70) Hemoglobin 7.7 g/dL (13.0-17.5) Hematocrit 23.4 % (39.0-53.0) Mean Corpuscular Volume 89 fL (79-100) Mean Corpuscular Hemoglobin 29 pg (25-35) Mean Corpuscular Hemoglobin Concent 33 g/dL (31-37) Red Cell Distribution Width 17.3 % (11.5-14.5) Platelet Count 288 x10^3/uL (140-400) Neutrophils (%) (Auto) 79 % (31-73) Lymphocytes (%) (Auto) 11 % (24-48) Monocytes (%) (Auto) 7 % (0-9) Eosinophils (%) (Auto) 3 % (0-3) Basophils (%) (Auto) 0 % (0-3) Neutrophils # (Auto) 7.0 x10^3uL (1.8-7.7) Lymphocytes # (Auto) 1.0 x10^3/uL (1.0-4.8) Monocytes # (Auto) 0.6 x10^3/uL (0.0-1.1) Eosinophils # (Auto) 0.3 x10^3/uL (0.0-0.7) Basophils # (Auto) 0.0 x10^3/uL (0.0-0.2) Sodium Level 135 mmol/L (136-145) Potassium Level 4.0 mmol/L (3.5-5.1) Chloride Level 96 mmol/L (98-107) Carbon Dioxide Level 31 mmol/L (21-32) Anion Gap 8 (6-14) Blood Urea Nitrogen 38 mg/dL (8-26) Creatinine 4.6 mg/dL (0.7-1.3) Estimated GFR (Cockcroft-Gault) 13.1 Glucose Level 234 mg/dL (70-99) Calcium Level 8.1 mg/dL (8.5-10.1) Laboratory Tests Test 05/01/17 17:00 05/01/17 21:39 05/02/17 05:00 05/02/17 05:10 Glucose (Fingerstick) 194 mg/dL (70-99) 226 mg/dL (70-99) Prothrombin Time 28.9 SEC (11.7-14.0) Prothromb Time International Ratio 2.9 (0.8-1.1) White Blood Count 8.9 x10^3/uL (4.0-11.0) Red Blood Count 2.64 x10^6/uL (4.30-5.70) Hemoglobin 7.7 g/dL (13.0-17.5) Hematocrit 23.4 % (39.0-53.0) Mean Corpuscular Volume 89 fL (79-100) Mean Corpuscular Hemoglobin 29 pg (25-35) Mean Corpuscular Hemoglobin Concent 33 g/dL (31-37) Red Cell Distribution Width 17.3 % (11.5-14.5) Platelet Count 288 x10^3/uL (140-400) Neutrophils (%) (Auto) 79 % (31-73) Lymphocytes (%) (Auto) 11 % (24-48) Monocytes (%) (Auto) 7 % (0-9) Eosinophils (%) (Auto) 3 % (0-3) Basophils (%) (Auto) 0 % (0-3) Neutrophils # (Auto) 7.0 x10^3uL (1.8-7.7) Lymphocytes # (Auto) 1.0 x10^3/uL (1.0-4.8) Monocytes # (Auto) 0.6 x10^3/uL (0.0-1.1) Eosinophils # (Auto) 0.3 x10^3/uL (0.0-0.7) Basophils # (Auto) 0.0 x10^3/uL (0.0-0.2) Sodium Level 135 mmol/L (136-145) Potassium Level 4.0 mmol/L (3.5-5.1) Chloride Level 96 mmol/L (98-107) Carbon Dioxide Level 31 mmol/L (21-32) Anion Gap 8 (6-14) Blood Urea Nitrogen 38 mg/dL (8-26) Creatinine 4.6 mg/dL (0.7-1.3) Estimated GFR (Cockcroft-Gault) 13.1 Glucose Level 234 mg/dL (70-99) Calcium Level 8.1 mg/dL (8.5-10.1) Medications Current Medications Acetaminophen/ Hydrocodone Bitart (Lortab 10/325) 1 tab PRN Q6HRS PRN PO PAIN Last administered on 05/02/17 13:53; Start 04/28/17 at 18:45 Atorvastatin Calcium (Lipitor) 40 mg DAILY PO Last administered on 05/02/17 09 :12; Start 04/29/17 at 09:00 Clonazepam (KlonoPIN) 0.5 mg PRN Q6HRS PRN PO ANXIETY / AGITATION; Start 04/28 at 21:15 Famotidine (Pepcid) 20 mg DAILY PO ; Start 04/29/17 at 09:00; Stop 04/29/17 at 14:04; Status DC Ferrous Sulfate (Feosol) 325 mg DAILY PO Last administered on 05/01/17 09:25; Start 04/29/17 at 09:00; Stop 05/01/17 at 12:55; Status DC Vitamin B Complex/ Vitamin C (Sapphire-Sara) 1 tab DAILY PO Last administered on 09:12; Start 04/29/17 at 09:00 Lisinopril (Prinivil) 10 mg DAILY PO Last administered on 05/01/17 09:25; Start 04/29/17 at 09:00 Oxycodone HCl (OxyCONTIN) 10 mg BID PO Last administered on 05/02/17 09:12; Start 04/29/17 at 09:00 Senna/Docusate Sodium (Senna Plus) 2 tab PRN DAILY PRN PO CONSTIPATION 1ST CHOICE; Start 04/28/17 at 21:15 Trazodone HCl (Desyrel) 50 mg PRN QHS PRN PO INSOMNIA Last administered on 04/30 20:59; Start 04/28/17 at 21:15 Calcium Carbonate/ Glycine (Tums) 500 mg TIDAC PO Last administered on 12:52; Start 04/29/17 at 07:30 Citalopram Hydrobromide (CeleXA) 20 mg DAILY PO Last administered on 05/02/17 09:12; Start 04/29/17 at 09:00 Insulin Detemir (Levemir) 22 units QHS SQ ; Start 04/29/17 at 21:00; Stop at 21:00; Status DC Insulin Aspart (NovoLOG) 2 units TIDAC SQ ; Start 04/29/17 at 07:30; Stop at 07:30; Status DC Pioglitazone HCl (Actos) 45 mg DAILY PO Last administered on 05/02/17 09:13; Start 04/29/17 at 09:00 Insulin Detemir (Levemir) 12 units QHS SQ Last administered on 05/01/17 21:41 ; Start 04/29/17 at 21:00 Insulin Aspart (NovoLOG) 0-5 UNITS TIDWMEALS SQ ; Start 04/29/17 at 08:00; Stop 04/29/17 at 14:05; Status DC Dextrose (Dextrose 50%-Water Syringe) 12.5 gm PRN Q15MIN PRN IV SEE COMMENTS; Start 04/28/17 at 22:00; Stop 04/29/17 at 12:17; Status DC Clonazepam (KlonoPIN) 0.5 mg TID PO Last administered on 05/02/17 13:53; Start 04/28/17 at 22:00 Diphenoxylate HCl/ Atropine (Lomotil) 1 tab PRN QID PRN PO DIARRHEA; Start at 22:00 Midodrine (Proamatine) 5 mg BIDBFRMEAL PO Last administered on 05/02/17 09:16 ; Start 04/29/17 at 07:30 Polyethylene Glycol (miraLAX PACKET) 17 gm PRN DAILY PRN PO CONSTIPATION; Start 04/28/17 at 22:00 Warfarin Sodium (Coumadin) 3 mg DAILY16 PO Last administered on 05/01/17 16:36 ; Start 04/29/17 at 16:00 Darbepoetin Noel (Aranesp) 60 mcg Th SQ Last administered on 04/29/17 22:11; Start 04/29/17 at 21:00 Ondansetron HCl (Zofran) 4 mg PRN Q4HRS PRN IV NAUSEA; Start 04/28/17 at 22:00 Warfarin Sodium (Coumadin Per Physician) 1 each PRN DAILY PRN MC SEE COMMENTS Last administered on 04/30/17 11:15; Start 04/28/17 at 22:15 Sodium Chloride 1,000 ml @ 1,000 mls/hr Q1H PRN IV hypotension; Start at 08:39; Stop 04/29/17 at 14:38; Status DC Albumin Human 200 ml @ 200 mls/hr 1X PRN PRN IV Hypotension; Start 04/29/17 at 08:45; Stop 04/29/17 at 14:44; Status DC Sodium Chloride 1,000 ml @ 400 mls/hr Q2H30M PRN IV PATENCY; Start 04/29/17 at 08:39; Stop 04/29/17 at 20:38; Status DC Info (PHARMACY MONITORING -- do not chart) 1 each PRN DAILY PRN MC SEE COMMENTS ; Start 04/29/17 at 08:45; Status UNV Info (PHARMACY MONITORING -- do not chart) 1 each PRN DAILY PRN MC SEE COMMENTS ; Start 04/29/17 at 08:45 Insulin Aspart (NovoLOG) 0-7 UNITS TIDWMEALS SQ Last administered on 05/02/17 09:13; Start 04/29/17 at 12:00 Dextrose (Dextrose 50%-Water Syringe) 12.5 gm PRN Q15MIN PRN IV SEE COMMENTS; Start 04/29/17 at 10:00 Darbepoetin Noel (Aranesp) 60 mcg WEEKLYHS SQ ; Start 04/29/17 at 21:00; Stop 04/29/17 at 21:00; Status DC Famotidine (Pepcid) 20 mg Q48H PO Last administered on 05/01/17 09:24; Start 05/01/17 at 09:00 Fentanyl Citrate (Fentanyl 2ml Vial) 12.5 mcg PRN Q3HRS PRN IM PAIN; Start at 14:15; Stop 04/29/17 at 14:34; Status DC Fentanyl Citrate (Fentanyl 2ml Vial) 12.5 mcg PRN Q3HRS PRN IV PAIN Last administered on 05/02/17 12:15; Start 04/29/17 at 14:45 Propofol 20 ml @ As Directed STK-MED ONCE IV ; Start 04/29/17 at 15:45; Stop 04/29/17 at 15:46; Status DC Lidocaine HCl (Lidocaine Pf 2% Vial) 5 ml STK-MED ONCE .ROUTE ; Start 04/29/17 at 15:45; Stop 04/29/17 at 15:46; Status DC Succinylcholine Chloride (Anectine) 200 mg STK-MED ONCE .ROUTE ; Start at 15:46; Stop 04/29/17 at 15:47; Status DC Rocuronium [place] (Zemuron) 50 mg STK-MED ONCE .ROUTE ; Start 04/29/17 at 15: 46; Stop 04/29/17 at 15:47; Status DC Fentanyl Citrate (Fentanyl 2ml Vial) 100 mcg STK-MED ONCE .ROUTE ; Start at 15:46; Stop 04/29/17 at 15:47; Status DC Cefazolin Sodium/ Dextrose 50 ml @ As Directed STK-MED ONCE IV ; Start at 16:46; Stop 04/29/17 at 16:47; Status DC Ephedrine Sulfate (Akovaz) 50 mg STK-MED ONCE .ROUTE ; Start 04/29/17 at 16:47 ; Stop 04/29/17 at 16:48; Status DC Rocuronium [place] (Zemuron) 50 mg STK-MED ONCE .ROUTE ; Start 04/29/17 at 17: 23; Stop 04/29/17 at 17:24; Status DC Fentanyl Citrate (Fentanyl 2ml Vial) 100 mcg STK-MED ONCE .ROUTE ; Start at 17:23; Stop 04/29/17 at 17:24; Status DC Ondansetron HCl (Zofran) 4 mg STK-MED ONCE .ROUTE ; Start 04/29/17 at 17:32; Stop 04/29/17 at 17:33; Status DC Neostigmine Methylsulfate (Bloxiverz) 10 mg STK-MED ONCE .ROUTE ; Start at 17:32; Stop 04/29/17 at 17:33; Status DC Glycopyrrolate (Robinul) 1 mg STK-MED ONCE .ROUTE ; Start 04/29/17 at 17:33; Stop 04/29/17 at 17:34; Status DC Albumin Human 500 ml @ As Directed STK-MED ONCE IV ; Start 04/29/17 at 17:50; Stop 04/29/17 at 17:51; Status DC Vasopressin (Vasostrict) 20 unit STK-MED ONCE .ROUTE ; Start 04/29/17 at 17:53 ; Stop 04/29/17 at 17:54; Status DC Sodium Chloride (Sodium Chloride) 50 ml STK-MED ONCE IJ ; Start 04/29/17 at 17: 54; Stop 04/29/17 at 17:55; Status DC Phenylephrine HCl 80 mg/Sodium Chloride 258 ml @ 0 mls/hr CONT PRN IV SEE I/O RECORD Last administered on 05/02/17t 09:11; Start 04/29/17 at 20:30 Fentanyl Citrate (Fentanyl 2ml Vial) 25 mcg PRN Q5MIN PRN IV Acute Pain; Start 04/29/17 at 20:30; Stop 04/30/17 at 20:29; Status DC Fentanyl Citrate (Fentanyl 2ml Vial) 50 mcg PRN Q5MIN PRN IV Acute Pain; Start 04/29/17 at 20:30; Stop 04/30/17 at 20:29; Status DC Morphine Sulfate 2 mg PRN Q10MIN PRN IV Mild Pain; Start 04/29/17 at 20:30; Stop 04/30/17 at 20:29; Status DC Hydromorphone HCl (Dilaudid) 0.2 mg PRN Q10MIN PRN IV Mild pain; Start at 20:30; Stop 04/30/17 at 20:29; Status DC Ondansetron HCl (Zofran) 4 mg PRN Q6HRS PRN IV Nausea, 1st Choice; Start 04/29 at 20:30; Stop 04/30/17 at 20:29; Status DC Sodium Chloride 1,000 ml @ 1,000 mls/hr Q1H PRN IV hypotension; Start 04/30/17 at 08:33; Stop 04/30/17 at 14:32; Status DC Diphenhydramine HCl (Benadryl) 25 mg 1X PRN PRN IV ITCHING; Start 04/30/17 at 08:45; Stop 05/01/17 at 08:44; Status DC Diphenhydramine HCl (Benadryl) 25 mg 1X PRN PRN IV ITCHING; Start 04/30/17 at 08:45; Stop 05/01/17 at 08:44; Status DC Sodium Chloride 1,000 ml @ 400 mls/hr Q2H30M PRN IV PATENCY; Start 04/30/17 at 08:33; Stop 04/30/17 at 20:32; Status DC Info (PHARMACY MONITORING -- do not chart) 1 each PRN DAILY PRN MC SEE COMMENTS ; Start 04/30/17 at 08:45; Status UNV Active Scripts Active Hydrocodone-Apap 10-325 (Hydrocodone Bit/Acetaminophen) 1 Each Tablet 1 Tab PO PRN Q6HRS PRN 30 Days Senna-Time S Tablet (Sennosides/Docusate Sodium) 1 Each Tablet 2 Tab PO PRN DAILY PRN Reported Aranesp Syringe (Darbepoetin Noel In Polysorbat) 60 Mcg/0.3 Ml Disp.syrin 60 Mcg SQ WE@2100 Warfarin Sodium 3 Mg Tablet 1 Tab PO DAILY Midodrine Hcl 5 Mg Tablet 5 Mg PO BID at 10 and 18 Clonazepam 0.5 Mg Tablet 1 Tab PO TID [micro guard2% powd] TOP [moriah] Miralax (Polyethylene Glycol 3350) 17 Gm Powd.pack 1 Packet PO DAILY PRN Actos (Pioglitazone Hcl) 45 Mg Tablet 1 Tab PO DAILY Ondansetron HCl 4 mg/2 ml Syr (Ondansetron HCl/Pf) 4 Mg/2 Ml Syringe 4 Mg IV Q4HRS PRN Lomotil Tablet (Diphenoxylate Hcl/Atropine) 1 Each Tablet 1 Tab PO QID PRN Humalog (Insulin Lispro) 100 Unit/1 Ml Cartridge 0 SQ TIDAC sliding scale Lisinopril 10 Mg Tablet 10 Mg PO DAILY Oxycontin (Oxycodone HCl) 10 Mg Tab.er.12h 10 Mg PO BID Nephro-Sara Tablet (Folic Acid/Vitamin B Comp W-C) 0.8 Mg Tablet 0.8 Mg PO DAILY Ferrous Sulfate 325 Mg Tablet 325 Mg PO DAILY Famotidine 20 Mg Tablet 20 Mg PO DAILY Clonazepam 0.5 Mg Tablet 0.5 Mg PO Q6HRS PRN Escitalopram Oxalate 10 Mg Tablet 10 Mg PO DAILY Lantus Solostar (Insulin Glargine,Hum.rec.anlog) 100 Unit/1 Ml Insuln.pen 12 Units SQ QHS Trazodone Hcl 50 Mg Tablet 50 Mg PO PRN QHS PRN Actos (Pioglitazone Hcl) 45 Mg Tablet 1 Tab PO DAILY Tums (Calcium Carbonate) 300 Mg Tab.chew 300 Mg PO TIDAC Atorvastatin Calcium 20 Mg Tablet 40 Mg PO DAILY Vitals/I & O Vital Sign - Last 24 Hours 05/01/17 05/01/17 05/01/17 05/01/17 14:00 14:34 14:57 16:00 Pulse 65 65 Resp 8 8 12 B/P (MAP) 93/45 (61) 84/48 (60) Pulse Ox 98 100 99 O2 Delivery Nasal Cannula Nasal Cannula BiPAP/CPAP Nasal Cannula O2 Flow Rate 6.0 6.0 05/01/17 05/01/17 05/01/17 05/01/17 16:00 16:36 16:53 17:05 Temp 97.8 97.8 Pulse 69 69 68 Resp 12 14 17 B/P (MAP) 86/43 (57) 113/57 109/56 (73) Pulse Ox 99 100 O2 Delivery BiPAP/CPAP BiPAP/CPAP Nasal Cannula O2 Flow Rate 6.0 05/01/17 05/01/17 05/01/17 05/01/17 17:33 18:02 19:00 19:15 Temp 98.7 98.7 Pulse 80 68 70 Resp 13 28 13 B/P (MAP) 99/61 (74) 83/49 (60) 90/50 (63) Pulse Ox 100 100 94 O2 Delivery Nasal Cannula Nasal Cannula BiPAP/CPAP O2 Flow Rate 6.0 6.0 6.0 05/01/17 05/01/17 05/01/17 05/01/17 19:33 20:00 21:00 21:38 Pulse 71 71 Resp 14 14 22 B/P (MAP) 93/52 (66) 93/52 (66) Pulse Ox 96 97 97 O2 Delivery Nasal Cannula BiPAP/CPAP BiPAP/CPAP BiPAP/CPAP O2 Flow Rate 6.0 6.0 6.0 6.0 05/01/17 05/01/17 05/01/17 05/01/17 22:00 23:00 23:20 23:20 Pulse 68 71 Resp 15 10 16 16 B/P (MAP) 89/54 (66) 99/55 (70) Pulse Ox 100 99 99 97 O2 Delivery BiPAP/CPAP BiPAP/CPAP Nasal Cannula Nasal Cannula O2 Flow Rate 6.0 6.0 6.0 6.0 05/02/17 05/02/17 05/02/17 05/02/17 00:00 00:00 00:20 01:00 Temp 98.8 98.8 Pulse 64 65 Resp 10 12 12 B/P (MAP) 107/60 (76) 111/56 (74) Pulse Ox 100 97 100 O2 Delivery BiPAP/CPAP Nasal Cannula Nasal Cannula BiPAP/CPAP O2 Flow Rate 6.0 6.0 6.0 6.0 05/02/17 05/02/17 05/02/17 05/02/17 02:00 03:00 04:00 04:00 Temp 98.1 98.1 Pulse 69 76 62 Resp 12 14 12 B/P (MAP) 108/57 (74) 92/60 (71) 111/55 (73) Pulse Ox 100 100 99 O2 Delivery BiPAP/CPAP BiPAP/CPAP Nasal Cannula Nasal Cannula O2 Flow Rate 6.0 6.0 6.0 6.0 05/02/17 05/02/17 05/02/17 05/02/17 05:00 06:00 07:00 07:37 Pulse 64 61 60 Resp 15 13 11 22 B/P (MAP) 116/50 (72) 110/54 (72) 104/55 (71) Pulse Ox 99 100 100 99 O2 Delivery Nasal Cannula Nasal Cannula Nasal Cannula Nasal Cannula O2 Flow Rate 6.0 6.0 6.0 6.0 05/02/17 05/02/17 05/02/17 05/02/17 08:00 08:00 09:00 09:00 Temp 98.7 98.7 Pulse 62 66 66 Resp 12 18 B/P (MAP) 101/57 (72) 106/51 106/51 (69) Pulse Ox 100 100 O2 Delivery Nasal Cannula Nasal Cannula Nasal Cannula O2 Flow Rate 6.0 6.0 6.0 05/02/17 05/02/17 05/02/17 05/02/17 09:12 09:16 10:00 11:00 Pulse 66 66 62 Resp 9 13 15 B/P (MAP) 106/51 100/52 (68) 108/55 (72) Pulse Ox 100 93 94 O2 Delivery Nasal Cannula Nasal Cannula Nasal Cannula O2 Flow Rate 6.0 6.0 6.0 05/02/17 05/02/17 05/02/17 05/02/17 12:00 12:00 12:15 12:45 Temp 98.4 98.4 Pulse 64 Resp 14 16 26 B/P (MAP) 110/60 (77) Pulse Ox 95 100 O2 Delivery Nasal Cannula Nasal Cannula Nasal Cannula Nasal Cannula O2 Flow Rate 6.0 6.0 3.0 6.0 05/02/17 05/02/17 05/02/17 12:45 13:00 13:53 Pulse 66 Resp 26 23 19 B/P (MAP) 124/50 (74) Pulse Ox 100 93 98 O2 Delivery Nasal Cannula Nasal Cannula Nasal Cannula O2 Flow Rate 6.0 6.0 6.0 Intake and Output 05/01/17 05/01/17 05/02/17 15:00 23:00 07:00 Intake Total 240 ml 124 ml 403 ml Output Total 0 ml 0 ml Balance 240 ml 124 ml 403 ml JARON RAMOS MD May 02, 2017 13:57
[2017-05-02] MEDS: WARFARIN 3 MG TABLET. PO SCH (16:38)
[2017-05-02] MEDS: INSULIN DETEMIR 300 UNITS/3 ML INSULN.PEN. SQ SCH (21:12)
[2017-05-03] VITALS (23 sets, daily range): BP systolic 86–115; BP diastolic 44–70
[2017-05-03] MEDS: HYDROcodone/APAP 10/325 1 TAB TABLET PO PRN ×3 (00:35→14:07)
[2017-05-03 06:21] LABS: BASO # 0.1 x10^3/uL (0.0-0.2); BASO % 1 % (0-3); EOS % 6 % (0-3); HEMATOCRIT 22.5 % (39.0-53.0); HEMOGLOBIN 7.3 g/dL (13.0-17.5); LYMPH # 1.1 x10^3/uL (1.0-4.8); LYMPH % 16 % (24-48); MEAN CORPUSCULAR HEMOGLOBIN 29 pg (25-35); MEAN CORPUSCULAR HGB CONC 33 g/dL (31-37); MEAN CORPUSCULAR VOLUME 89 fL (79-100); MONO % 8 % (0-9); NEUT % 69 % (31-73); PLATELET COUNT 275 x10^3/uL (140-400); RED BLOOD COUNT 2.52 x10^6/uL (4.30-5.70); RED CELL DISTRIBUTION WIDTH 17.2 % (11.5-14.5); WHITE BLOOD COUNT 6.7 x10^3/uL (4.0-11.0)
[2017-05-03 06:38] LABS: CALCIUM 8.2 mg/dL (8.5-10.1); GFR 9.7; POTASSIUM 4.4 mmol/L (3.5-5.1)
[2017-05-03 06:50] LABS: INR 2.8 (0.8-1.1); PROTHROMBIN TIME PATIENT 27.7 SEC (11.7-14.0)
[2017-05-03] MEDS: INSULIN ASPART 300 UNITS/3 ML INSULN.PEN SQ SCH ×3 (08:00→17:00)
[2017-05-03] MEDS ORDERED: IV NORMAL SALINE 1000ML BAG 1,000 ML IV PRN ×2 (08:15)
[2017-05-03] MEDS ORDERED: DIALYSIS PATIENT. MC PRN ×2 (08:15)
--- NOTE | 2017-05-03 08:36 | PDOC ---
PROGRESS NOTES Subjective Subjective No acute events overnight. Hypotension resolving, patient off Son pressors now. No new cardiac symptoms today. Patient currently undergoing hemodialysis. No additional concerns at this time. Objective Objective Vital Signs Date Time Temp Pulse Resp B/P (MAP) Pulse Ox O2 Delivery O2 Flow Rate FiO2 05/03/17 08:17 Nasal Cannula 6.0 05/03/17 07:08 100 05/03/17 07:07 63 12 86/57 (67) 05/03/17 04:00 97.8 97.8 Intake and Output 05/03/17 07:00 Intake Total 1684 ml Balance 1684 ml Intake Oral 1440 ml IV Total 244 ml Physical Exam COMMENT Alert, Awake, Oriented In No Acute Distress Lungs CTAB Cardiac: S1-S2, 2/6 systolic murmur and 2/6 diastolic murmur. Slight muffling of heart sounds. No changes in cardiac exam No changes in edema Assessment Assessment Patient continues to have some hypotension, however his normal BP runs low. Off pressors currently. Will restart pressors if SBPs in 80s-90s.Continue cardiac telemetry. Continue Coumadin for chronic A Fib. Will obtain cardiac echo today to assess for possible effusions or other pathologies. Otherwise, will continue with medical treatment without any further invasive surgeries. Plan to continue with dialysis until after New Years. At that point will reassess situation, but discussed in length with patient about d/c HD after the New Years and proceeding with comfort measures only. Patient and family in agreement with plan. Comment Review of Relevant I have reviewed the following items maria teresa (where applicable) has been applied. Labs Laboratory Tests Test 05/01/17 11:59 05/01/17 17:00 05/01/17 21:39 05/02/17 05:00 Glucose (Fingerstick) 205 mg/dL (70-99) 194 mg/dL (70-99) 226 mg/dL (70-99) Prothrombin Time 28.9 SEC (11.7-14.0) Prothromb Time International Ratio 2.9 (0.8-1.1) Test 05/02/17 05:10 05/02/17 12:51 05/02/17 17:38 05/02/17 21:11 White Blood Count 8.9 x10^3/uL (4.0-11.0) Red Blood Count 2.64 x10^6/uL (4.30-5.70) Hemoglobin 7.7 g/dL (13.0-17.5) Hematocrit 23.4 % (39.0-53.0) Mean Corpuscular Volume 89 fL (79-100) Mean Corpuscular Hemoglobin 29 pg (25-35) Mean Corpuscular Hemoglobin Concent 33 g/dL (31-37) Red Cell Distribution Width 17.3 % (11.5-14.5) Platelet Count 288 x10^3/uL (140-400) Neutrophils (%) (Auto) 79 % (31-73) Lymphocytes (%) (Auto) 11 % (24-48) Monocytes (%) (Auto) 7 % (0-9) Eosinophils (%) (Auto) 3 % (0-3) Basophils (%) (Auto) 0 % (0-3) Neutrophils # (Auto) 7.0 x10^3uL (1.8-7.7) Lymphocytes # (Auto) 1.0 x10^3/uL (1.0-4.8) Monocytes # (Auto) 0.6 x10^3/uL (0.0-1.1) Eosinophils # (Auto) 0.3 x10^3/uL (0.0-0.7) Basophils # (Auto) 0.0 x10^3/uL (0.0-0.2) Sodium Level 135 mmol/L (136-145) Potassium Level 4.0 mmol/L (3.5-5.1) Chloride Level 96 mmol/L (98-107) Carbon Dioxide Level 31 mmol/L (21-32) Anion Gap 8 (6-14) Blood Urea Nitrogen 38 mg/dL (8-26) Creatinine 4.6 mg/dL (0.7-1.3) Estimated GFR (Cockcroft-Gault) 13.1 Glucose Level 234 mg/dL (70-99) Calcium Level 8.1 mg/dL (8.5-10.1) Glucose (Fingerstick) 109 mg/dL (70-99) 204 mg/dL (70-99) 171 mg/dL (70-99) Test 05/03/17 06:10 White Blood Count 6.7 x10^3/uL (4.0-11.0) Red Blood Count 2.52 x10^6/uL (4.30-5.70) Hemoglobin 7.3 g/dL (13.0-17.5) Hematocrit 22.5 % (39.0-53.0) Mean Corpuscular Volume 89 fL (79-100) Mean Corpuscular Hemoglobin 29 pg (25-35) Mean Corpuscular Hemoglobin Concent 33 g/dL (31-37) Red Cell Distribution Width 17.2 % (11.5-14.5) Platelet Count 275 x10^3/uL (140-400) Neutrophils (%) (Auto) 69 % (31-73) Lymphocytes (%) (Auto) 16 % (24-48) Monocytes (%) (Auto) 8 % (0-9) Eosinophils (%) (Auto) 6 % (0-3) Basophils (%) (Auto) 1 % (0-3) Neutrophils # (Auto) 4.6 x10^3uL (1.8-7.7) Lymphocytes # (Auto) 1.1 x10^3/uL (1.0-4.8) Monocytes # (Auto) 0.6 x10^3/uL (0.0-1.1) Eosinophils # (Auto) 0.4 x10^3/uL (0.0-0.7) Basophils # (Auto) 0.1 x10^3/uL (0.0-0.2) Prothrombin Time 27.7 SEC (11.7-14.0) Prothromb Time International Ratio 2.8 (0.8-1.1) Sodium Level 132 mmol/L (136-145) Potassium Level 4.4 mmol/L (3.5-5.1) Chloride Level 95 mmol/L (98-107) Carbon Dioxide Level 29 mmol/L (21-32) Anion Gap 8 (6-14) Blood Urea Nitrogen 52 mg/dL (8-26) Creatinine 6.0 mg/dL (0.7-1.3) Estimated GFR (Cockcroft-Gault) 9.7 Glucose Level 148 mg/dL (70-99) Calcium Level 8.2 mg/dL (8.5-10.1) Laboratory Tests Test 05/02/17 12:51 05/02/17 17:38 05/02/17 21:11 05/03/17 06:10 Glucose (Fingerstick) 109 mg/dL (70-99) 204 mg/dL (70-99) 171 mg/dL (70-99) White Blood Count 6.7 x10^3/uL (4.0-11.0) Red Blood Count 2.52 x10^6/uL (4.30-5.70) Hemoglobin 7.3 g/dL (13.0-17.5) Hematocrit 22.5 % (39.0-53.0) Mean Corpuscular Volume 89 fL (79-100) Mean Corpuscular Hemoglobin 29 pg (25-35) Mean Corpuscular Hemoglobin Concent 33 g/dL (31-37) Red Cell Distribution Width 17.2 % (11.5-14.5) Platelet Count 275 x10^3/uL (140-400) Neutrophils (%) (Auto) 69 % (31-73) Lymphocytes (%) (Auto) 16 % (24-48) Monocytes (%) (Auto) 8 % (0-9) Eosinophils (%) (Auto) 6 % (0-3) Basophils (%) (Auto) 1 % (0-3) Neutrophils # (Auto) 4.6 x10^3uL (1.8-7.7) Lymphocytes # (Auto) 1.1 x10^3/uL (1.0-4.8) Monocytes # (Auto) 0.6 x10^3/uL (0.0-1.1) Eosinophils # (Auto) 0.4 x10^3/uL (0.0-0.7) Basophils # (Auto) 0.1 x10^3/uL (0.0-0.2) Prothrombin Time 27.7 SEC (11.7-14.0) Prothromb Time International Ratio 2.8 (0.8-1.1) Sodium Level 132 mmol/L (136-145) Potassium Level 4.4 mmol/L (3.5-5.1) Chloride Level 95 mmol/L (98-107) Carbon Dioxide Level 29 mmol/L (21-32) Anion Gap 8 (6-14) Blood Urea Nitrogen 52 mg/dL (8-26) Creatinine 6.0 mg/dL (0.7-1.3) Estimated GFR (Cockcroft-Gault) 9.7 Glucose Level 148 mg/dL (70-99) Calcium Level 8.2 mg/dL (8.5-10.1) Medications Current Medications Acetaminophen/ Hydrocodone Bitart (Lortab 10/325) 1 tab PRN Q6HRS PRN PO PAIN Last administered on 05/03/17 06:03; Start 04/28/17 at 18:45 Atorvastatin Calcium (Lipitor) 40 mg DAILY PO Last administered on 05/02/17 09 :12; Start 04/29/17 at 09:00 Clonazepam (KlonoPIN) 0.5 mg PRN Q6HRS PRN PO ANXIETY / AGITATION; Start 04/28 at 21:15 Famotidine (Pepcid) 20 mg DAILY PO ; Start 04/29/17 at 09:00; Stop 04/29/17 at 14:04; Status DC Ferrous Sulfate (Feosol) 325 mg DAILY PO Last administered on 05/01/17 09:25; Start 04/29/17 at 09:00; Stop 05/01/17 at 12:55; Status DC Vitamin B Complex/ Vitamin C (Sapphire-Sara) 1 tab DAILY PO Last administered on 09:12; Start 04/29/17 at 09:00 Lisinopril (Prinivil) 10 mg DAILY PO Last administered on 05/01/17 09:25; Start 04/29/17 at 09:00 Oxycodone HCl (OxyCONTIN) 10 mg BID PO Last administered on 05/02/17 21:09; Start 04/29/17 at 09:00 Senna/Docusate Sodium (Senna Plus) 2 tab PRN DAILY PRN PO CONSTIPATION 1ST CHOICE; Start 04/28/17 at 21:15 Trazodone HCl (Desyrel) 50 mg PRN QHS PRN PO INSOMNIA Last administered on 04/30 20:59; Start 04/28/17 at 21:15 Calcium Carbonate/ Glycine (Tums) 500 mg TIDAC PO Last administered on 16:38; Start 04/29/17 at 07:30 Citalopram Hydrobromide (CeleXA) 20 mg DAILY PO Last administered on 05/02/17 09:12; Start 04/29/17 at 09:00 Insulin Detemir (Levemir) 22 units QHS SQ ; Start 04/29/17 at 21:00; Stop at 21:00; Status DC Insulin Aspart (NovoLOG) 2 units TIDAC SQ ; Start 04/29/17 at 07:30; Stop at 07:30; Status DC Pioglitazone HCl (Actos) 45 mg DAILY PO Last administered on 05/02/17 09:13; Start 04/29/17 at 09:00 Insulin Detemir (Levemir) 12 units QHS SQ Last administered on 05/02/17 21:12 ; Start 04/29/17 at 21:00 Insulin Aspart (NovoLOG) 0-5 UNITS TIDWMEALS SQ ; Start 04/29/17 at 08:00; Stop 04/29/17 at 14:05; Status DC Dextrose (Dextrose 50%-Water Syringe) 12.5 gm PRN Q15MIN PRN IV SEE COMMENTS; Start 04/28/17 at 22:00; Stop 04/29/17 at 12:17; Status DC Clonazepam (KlonoPIN) 0.5 mg TID PO Last administered on 05/02/17 21:09; Start 04/28/17 at 22:00 Diphenoxylate HCl/ Atropine (Lomotil) 1 tab PRN QID PRN PO DIARRHEA; Start at 22:00 Midodrine (Proamatine) 5 mg BIDBFRMEAL PO Last administered on 05/02/17 16:38 ; Start 04/29/17 at 07:30 Polyethylene Glycol (miraLAX PACKET) 17 gm PRN DAILY PRN PO CONSTIPATION; Start 04/28/17 at 22:00 Warfarin Sodium (Coumadin) 3 mg DAILY16 PO Last administered on 05/02/17 16:38 ; Start 04/29/17 at 16:00 Darbepoetin Noel (Aranesp) 60 mcg Th SQ Last administered on 04/29/17 22:11; Start 04/29/17 at 21:00 Ondansetron HCl (Zofran) 4 mg PRN Q4HRS PRN IV NAUSEA; Start 04/28/17 at 22:00 Warfarin Sodium (Coumadin Per Physician) 1 each PRN DAILY PRN MC SEE COMMENTS Last administered on 04/30/17 11:15; Start 04/28/17 at 22:15 Sodium Chloride 1,000 ml @ 1,000 mls/hr Q1H PRN IV hypotension; Start at 08:39; Stop 04/29/17 at 14:38; Status DC Albumin Human 200 ml @ 200 mls/hr 1X PRN PRN IV Hypotension; Start 04/29/17 at 08:45; Stop 04/29/17 at 14:44; Status DC Sodium Chloride 1,000 ml @ 400 mls/hr Q2H30M PRN IV PATENCY; Start 04/29/17 at 08:39; Stop 04/29/17 at 20:38; Status DC Info (PHARMACY MONITORING -- do not chart) 1 each PRN DAILY PRN MC SEE COMMENTS ; Start 04/29/17 at 08:45; Status UNV Info (PHARMACY MONITORING -- do not chart) 1 each PRN DAILY PRN MC SEE COMMENTS ; Start 04/29/17 at 08:45 Insulin Aspart (NovoLOG) 0-7 UNITS TIDWMEALS SQ Last administered on 05/02/17 17:40; Start 04/29/17 at 12:00 Dextrose (Dextrose 50%-Water Syringe) 12.5 gm PRN Q15MIN PRN IV SEE COMMENTS; Start 04/29/17 at 10:00 Darbepoetin Noel (Aranesp) 60 mcg WEEKLYHS SQ ; Start 04/29/17 at 21:00; Stop 04/29/17 at 21:00; Status DC Famotidine (Pepcid) 20 mg Q48H PO Last administered on 05/01/17 09:24; Start 05/01/17 at 09:00 Fentanyl Citrate (Fentanyl 2ml Vial) 12.5 mcg PRN Q3HRS PRN IM PAIN; Start at 14:15; Stop 04/29/17 at 14:34; Status DC Fentanyl Citrate (Fentanyl 2ml Vial) 12.5 mcg PRN Q3HRS PRN IV PAIN Last administered on 05/02/17 23:22; Start 04/29/17 at 14:45 Propofol 20 ml @ As Directed STK-MED ONCE IV ; Start 04/29/17 at 15:45; Stop 04/29/17 at 15:46; Status DC Lidocaine HCl (Lidocaine Pf 2% Vial) 5 ml STK-MED ONCE .ROUTE ; Start 04/29/17 at 15:45; Stop 04/29/17 at 15:46; Status DC Succinylcholine Chloride (Anectine) 200 mg STK-MED ONCE .ROUTE ; Start at 15:46; Stop 04/29/17 at 15:47; Status DC Rocuronium [place] (Zemuron) 50 mg STK-MED ONCE .ROUTE ; Start 04/29/17 at 15: 46; Stop 04/29/17 at 15:47; Status DC Fentanyl Citrate (Fentanyl 2ml Vial) 100 mcg STK-MED ONCE .ROUTE ; Start at 15:46; Stop 04/29/17 at 15:47; Status DC Cefazolin Sodium/ Dextrose 50 ml @ As Directed STK-MED ONCE IV ; Start at 16:46; Stop 04/29/17 at 16:47; Status DC Ephedrine Sulfate (Akovaz) 50 mg STK-MED ONCE .ROUTE ; Start 04/29/17 at 16:47 ; Stop 04/29/17 at 16:48; Status DC Rocuronium [place] (Zemuron) 50 mg STK-MED ONCE .ROUTE ; Start 04/29/17 at 17: 23; Stop 04/29/17 at 17:24; Status DC Fentanyl Citrate (Fentanyl 2ml Vial) 100 mcg STK-MED ONCE .ROUTE ; Start at 17:23; Stop 04/29/17 at 17:24; Status DC Ondansetron HCl (Zofran) 4 mg STK-MED ONCE .ROUTE ; Start 04/29/17 at 17:32; Stop 04/29/17 at 17:33; Status DC Neostigmine Methylsulfate (Bloxiverz) 10 mg STK-MED ONCE .ROUTE ; Start at 17:32; Stop 04/29/17 at 17:33; Status DC Glycopyrrolate (Robinul) 1 mg STK-MED ONCE .ROUTE ; Start 04/29/17 at 17:33; Stop 04/29/17 at 17:34; Status DC Albumin Human 500 ml @ As Directed STK-MED ONCE IV ; Start 04/29/17 at 17:50; Stop 04/29/17 at 17:51; Status DC Vasopressin (Vasostrict) 20 unit STK-MED ONCE .ROUTE ; Start 04/29/17 at 17:53 ; Stop 04/29/17 at 17:54; Status DC Sodium Chloride (Sodium Chloride) 50 ml STK-MED ONCE IJ ; Start 04/29/17 at 17: 54; Stop 04/29/17 at 17:55; Status DC Phenylephrine HCl 80 mg/Sodium Chloride 258 ml @ 0 mls/hr CONT PRN IV SEE I/O RECORD Last administered on 05/02/17t 21:09; Start 04/29/17 at 20:30 Fentanyl Citrate (Fentanyl 2ml Vial) 25 mcg PRN Q5MIN PRN IV Acute Pain; Start 04/29/17 at 20:30; Stop 04/30/17 at 20:29; Status DC Fentanyl Citrate (Fentanyl 2ml Vial) 50 mcg PRN Q5MIN PRN IV Acute Pain; Start 04/29/17 at 20:30; Stop 04/30/17 at 20:29; Status DC Morphine Sulfate 2 mg PRN Q10MIN PRN IV Mild Pain; Start 04/29/17 at 20:30; Stop 04/30/17 at 20:29; Status DC Hydromorphone HCl (Dilaudid) 0.2 mg PRN Q10MIN PRN IV Mild pain; Start at 20:30; Stop 04/30/17 at 20:29; Status DC Ondansetron HCl (Zofran) 4 mg PRN Q6HRS PRN IV Nausea, 1st Choice; Start 04/29 at 20:30; Stop 04/30/17 at 20:29; Status DC Sodium Chloride 1,000 ml @ 1,000 mls/hr Q1H PRN IV hypotension; Start 04/30/17 at 08:33; Stop 04/30/17 at 14:32; Status DC Diphenhydramine HCl (Benadryl) 25 mg 1X PRN PRN IV ITCHING; Start 04/30/17 at 08:45; Stop 05/01/17 at 08:44; Status DC Diphenhydramine HCl (Benadryl) 25 mg 1X PRN PRN IV ITCHING; Start 04/30/17 at 08:45; Stop 05/01/17 at 08:44; Status DC Sodium Chloride 1,000 ml @ 400 mls/hr Q2H30M PRN IV PATENCY; Start 04/30/17 at 08:33; Stop 04/30/17 at 20:32; Status DC Info (PHARMACY MONITORING -- do not chart) 1 each PRN DAILY PRN MC SEE COMMENTS ; Start 04/30/17 at 08:45; Status UNV Sodium Chloride 1,000 ml @ 1,000 mls/hr Q1H PRN IV hypotension; Start 05/03/17 at 08:15; Stop 05/03/17 at 14:14 Sodium Chloride 1,000 ml @ 400 mls/hr Q2H30M PRN IV PATENCY; Start 05/03/17 at 08:15; Stop 05/03/17 at 20:14 Info (PHARMACY MONITORING -- do not chart) 1 each PRN DAILY PRN MC SEE COMMENTS ; Start 05/03/17 at 08:15; Status UNV Info (PHARMACY MONITORING -- do not chart) 1 each PRN DAILY PRN MC SEE COMMENTS ; Start 05/03/17 at 08:15; Status UNV Active Scripts Active Hydrocodone-Apap 10-325 (Hydrocodone Bit/Acetaminophen) 1 Each Tablet 1 Tab PO PRN Q6HRS PRN 30 Days Senna-Time S Tablet (Sennosides/Docusate Sodium) 1 Each Tablet 2 Tab PO PRN DAILY PRN Reported Aranesp Syringe (Darbepoetin Noel In Polysorbat) 60 Mcg/0.3 Ml Disp.syrin 60 Mcg SQ WE@2100 Warfarin Sodium 3 Mg Tablet 1 Tab PO DAILY Midodrine Hcl 5 Mg Tablet 5 Mg PO BID at 10 and 18 Clonazepam 0.5 Mg Tablet 1 Tab PO TID [micro guard2% powd] TOP [moriah] Miralax (Polyethylene Glycol 3350) 17 Gm Powd.pack 1 Packet PO DAILY PRN Actos (Pioglitazone Hcl) 45 Mg Tablet 1 Tab PO DAILY Ondansetron HCl 4 mg/2 ml Syr (Ondansetron HCl/Pf) 4 Mg/2 Ml Syringe 4 Mg IV Q4HRS PRN Lomotil Tablet (Diphenoxylate Hcl/Atropine) 1 Each Tablet 1 Tab PO QID PRN Humalog (Insulin Lispro) 100 Unit/1 Ml Cartridge 0 SQ TIDAC sliding scale Lisinopril 10 Mg Tablet 10 Mg PO DAILY Oxycontin (Oxycodone HCl) 10 Mg Tab.er.12h 10 Mg PO BID Nephro-Sara Tablet (Folic Acid/Vitamin B Comp W-C) 0.8 Mg Tablet 0.8 Mg PO DAILY Ferrous Sulfate 325 Mg Tablet 325 Mg PO DAILY Famotidine 20 Mg Tablet 20 Mg PO DAILY Clonazepam 0.5 Mg Tablet 0.5 Mg PO Q6HRS PRN Escitalopram Oxalate 10 Mg Tablet 10 Mg PO DAILY Lantus Solostar (Insulin Glargine,Hum.rec.anlog) 100 Unit/1 Ml Insuln.pen 12 Units SQ QHS Trazodone Hcl 50 Mg Tablet 50 Mg PO PRN QHS PRN Actos (Pioglitazone Hcl) 45 Mg Tablet 1 Tab PO DAILY Tums (Calcium Carbonate) 300 Mg Tab.chew 300 Mg PO TIDAC Atorvastatin Calcium 20 Mg Tablet 40 Mg PO DAILY Vitals/I & O Vital Sign - Last 24 Hours 05/02/17 05/02/17 05/02/17 05/02/17 09:00 09:00 09:12 09:16 Pulse 66 66 66 Resp 18 9 B/P (MAP) 106/51 106/51 (69) 106/51 Pulse Ox 100 100 O2 Delivery Nasal Cannula Nasal Cannula O2 Flow Rate 6.0 6.0 05/02/17 05/02/17 05/02/17 05/02/17 10:00 11:00 12:00 12:00 Temp 98.4 98.4 Pulse 66 62 64 Resp 13 15 14 B/P (MAP) 100/52 (68) 108/55 (72) 110/60 (77) Pulse Ox 93 94 95 O2 Delivery Nasal Cannula Nasal Cannula Nasal Cannula Nasal Cannula O2 Flow Rate 6.0 6.0 6.0 6.0 05/02/17 05/02/17 05/02/17 05/02/17 12:15 13:00 13:53 14:00 Pulse 66 74 Resp 16 23 19 15 B/P (MAP) 124/50 (74) 78/44 (55) Pulse Ox 93 98 100 O2 Delivery Nasal Cannula Nasal Cannula Nasal Cannula Nasal Cannula O2 Flow Rate 3.0 6.0 6.0 6.0 05/02/17 05/02/17 05/02/17 05/02/17 15:00 16:00 16:00 16:38 Pulse 68 67 69 Resp 17 14 B/P (MAP) 89/49 (62) 103/53 (70) Pulse Ox 100 99 O2 Delivery Nasal Cannula Nasal Cannula Nasal Cannula O2 Flow Rate 6.0 6.0 6.0 05/02/17 05/02/17 05/02/17 05/02/17 16:39 17:00 18:00 19:00 Pulse 66 64 64 Resp 13 21 13 20 B/P (MAP) 108/53 (71) 106/53 (70) 91/38 (55) Pulse Ox 100 99 100 100 O2 Delivery Nasal Cannula Nasal Cannula Nasal Cannula Nasal Cannula O2 Flow Rate 6.0 6.0 6.0 6.0 05/02/17 05/02/17 05/02/17 05/02/17 19:38 20:00 20:00 20:12 Temp 97.8 97.8 Pulse 63 Resp 20 19 B/P (MAP) 113/60 (77) Pulse Ox 100 100 O2 Delivery Nasal Cannula Nasal Cannula Nasal Cannula O2 Flow Rate 5.0 6.0 6.0 6.0 05/02/17 05/02/17 05/02/17 05/02/17 21:00 21:09 22:00 23:00 Pulse 60 59 63 Resp 12 19 17 15 B/P (MAP) 105/55 (72) 101/54 (70) 103/56 (72) Pulse Ox 100 100 100 99 O2 Delivery Nasal Cannula Nasal Cannula Nasal Cannula Nasal Cannula O2 Flow Rate 6.0 6.0 6.0 6.0 05/02/17 05/03/17 05/03/17 05/03/17 23:22 00:00 00:00 00:21 Temp 98.0 98.0 Pulse 65 Resp 18 13 13 B/P (MAP) 96/53 (67) Pulse Ox 100 98 98 O2 Delivery Nasal Cannula BiPAP/CPAP Mask BiPAP/CPAP O2 Flow Rate 6.0 05/03/17 05/03/17 05/03/17 05/03/17 00:35 01:00 01:11 01:42 Pulse 61 Resp 25 14 14 18 B/P (MAP) 104/54 (71) Pulse Ox 99 100 100 O2 Delivery BiPAP/CPAP Nasal Cannula Nasal Cannula O2 Flow Rate 6.0 6.0 05/03/17 05/03/17 05/03/17 05/03/17 02:00 03:00 04:00 04:00 Temp 97.8 97.8 Pulse 59 59 64 Resp 13 11 12 B/P (MAP) 101/58 (72) 102/53 (69) 92/52 (65) Pulse Ox 100 100 100 O2 Delivery Nasal Cannula Nasal Cannula Nasal Cannula Nasal Cannula O2 Flow Rate 6.0 6.0 6.0 6.0 05/03/17 05/03/17 05/03/17 05/03/17 05:00 06:00 06:03 07:07 Pulse 60 63 63 Resp 17 12 25 12 B/P (MAP) 94/51 (65) 86/58 (67) 86/57 (67) Pulse Ox 100 100 100 100 O2 Delivery Nasal Cannula Nasal Cannula Nasal Cannula Nasal Cannula O2 Flow Rate 6.0 6.0 6.0 6.0 05/03/17 05/03/17 07:08 08:17 Pulse Ox 100 O2 Delivery Nasal Cannula Nasal Cannula O2 Flow Rate 6.0 6.0 Intake and Output 05/02/17 05/02/17 05/03/17 15:00 23:00 07:00 Intake Total 1357 ml 327 ml Balance 1357 ml 327 ml JARON RAMOS MD May 03, 2017 08:36
[2017-05-03] MEDS: LISINOPRIL 10 MG TABLET PO SCH (09:00)
--- NOTE | 2017-05-03 09:51 | PDOC ---
PROGRESS NOTES Subjective Subjective getting dialysis today, feeling good Objective Objective Vital Signs Date Time Temp Pulse Resp B/P (MAP) Pulse Ox O2 Delivery O2 Flow Rate FiO2 05/03/17 09:00 62 25 97/52 (67) 100 Nasal Cannula 6.0 05/03/17 04:00 97.8 97.8 Intake and Output 05/03/17 07:00 Intake Total 1684 ml Balance 1684 ml Intake Oral 1440 ml IV Total 244 ml Physical Exam Abdomen: Normal bowel sounds, Soft Heart: Regular rate, Normal S1, Normal S2, Other (regular rate and rhythm S1- S2 2/6 systolic murmur. 1 to 2/6 diastolic murmur.) Extremities: No clubbing, Other (right leg has been amputated and there is a dressing over the stump from an area that is infected. The left leg is in a dressing that covers the leg and foot below the knee. The left hand and wrist are completely dressed.) General: Alert, Oriented X3, Cooperative HEENT: PERRLA Lungs: Normal air movement MUSCULOSKELETAL: Other Neck: No JVD Neuro: Normal speech Psych/Mental Status: Mental status NL Skin: Other (lt 4.5 fingers eschar) Assessment Assessment Hypotension resolved ,off pressors today 1. Shifting of the distal femoral fragment. The patient had intramedullary nailing done earlier this month, is going to go for revision. 2. End-stage renal disease, on hemodialysis. 3. Insulin-dependent diabetes. 4. Right vrilu-igw-data amputation. 5. Congestive heart failure, chronic, systolic.30% EJF 6. Chronic atrial fibrillation, on Coumadin. PLAN: Dialysis today. ? select tomorrow ORIF L femur fx POD #5 - ortho following hypotension - resolved - anemia a/c - post PRC and ffp Hgb 7.4 anticoagulation - INR 3.0- last dose Warfarin 3mg 04/30 - pharmacy managing DM - BS 127-265 ESRD - hemodialysis sleep apnea - CPAP nightly at [facility] - cardiology following - asymptomatic Monitor for possible left lower extremity weakness.He wants to wait and see how he does after the pain medication. Diabetes not well controlled. Problems: Comment Review of Relevant I have reviewed the following items maria teresa (where applicable) has been applied. Labs Laboratory Tests Test 05/02/17 12:51 05/02/17 17:38 05/02/17 21:11 05/03/17 06:10 Glucose (Fingerstick) 109 mg/dL (70-99) 204 mg/dL (70-99) 171 mg/dL (70-99) White Blood Count 6.7 x10^3/uL (4.0-11.0) Red Blood Count 2.52 x10^6/uL (4.30-5.70) Hemoglobin 7.3 g/dL (13.0-17.5) Hematocrit 22.5 % (39.0-53.0) Mean Corpuscular Volume 89 fL (79-100) Mean Corpuscular Hemoglobin 29 pg (25-35) Mean Corpuscular Hemoglobin Concent 33 g/dL (31-37) Red Cell Distribution Width 17.2 % (11.5-14.5) Platelet Count 275 x10^3/uL (140-400) Neutrophils (%) (Auto) 69 % (31-73) Lymphocytes (%) (Auto) 16 % (24-48) Monocytes (%) (Auto) 8 % (0-9) Eosinophils (%) (Auto) 6 % (0-3) Basophils (%) (Auto) 1 % (0-3) Neutrophils # (Auto) 4.6 x10^3uL (1.8-7.7) Lymphocytes # (Auto) 1.1 x10^3/uL (1.0-4.8) Monocytes # (Auto) 0.6 x10^3/uL (0.0-1.1) Eosinophils # (Auto) 0.4 x10^3/uL (0.0-0.7) Basophils # (Auto) 0.1 x10^3/uL (0.0-0.2) Prothrombin Time 27.7 SEC (11.7-14.0) Prothromb Time International Ratio 2.8 (0.8-1.1) Sodium Level 132 mmol/L (136-145) Potassium Level 4.4 mmol/L (3.5-5.1) Chloride Level 95 mmol/L (98-107) Carbon Dioxide Level 29 mmol/L (21-32) Anion Gap 8 (6-14) Blood Urea Nitrogen 52 mg/dL (8-26) Creatinine 6.0 mg/dL (0.7-1.3) Estimated GFR (Cockcroft-Gault) 9.7 Glucose Level 148 mg/dL (70-99) Calcium Level 8.2 mg/dL (8.5-10.1) Medications Current Medications Info (PHARMACY MONITORING -- do not chart) 1 each PRN DAILY PRN MC SEE COMMENTS ; Start 05/03/17 at 08:15; Status UNV Info (PHARMACY MONITORING -- do not chart) 1 each PRN DAILY PRN MC SEE COMMENTS ; Start 05/03/17 at 08:15; Status UNV Sodium Chloride 1,000 ml @ 400 mls/hr Q2H30M PRN IV PATENCY; Start 05/03/17 at 08:15; Stop 05/03/17 at 20:14 Sodium Chloride 1,000 ml @ 1,000 mls/hr Q1H PRN IV hypotension; Start 05/03/17 at 08:15; Stop 05/03/17 at 14:14 Vitals/I & O Vital Sign - Last 24 Hours 05/02/17 05/02/17 05/02/17 05/02/17 10:00 11:00 12:00 12:00 Temp 98.4 98.4 Pulse 66 62 64 Resp 13 15 14 B/P (MAP) 100/52 (68) 108/55 (72) 110/60 (77) Pulse Ox 93 94 95 O2 Delivery Nasal Cannula Nasal Cannula Nasal Cannula Nasal Cannula O2 Flow Rate 6.0 6.0 6.0 6.0 05/02/17 05/02/17 05/02/17 05/02/17 12:15 13:00 13:53 14:00 Pulse 66 74 Resp 16 23 19 15 B/P (MAP) 124/50 (74) 78/44 (55) Pulse Ox 93 98 100 O2 Delivery Nasal Cannula Nasal Cannula Nasal Cannula Nasal Cannula O2 Flow Rate 3.0 6.0 6.0 6.0 05/02/17 05/02/17 05/02/17 05/02/17 15:00 16:00 16:00 16:38 Pulse 68 67 69 Resp 17 14 B/P (MAP) 89/49 (62) 103/53 (70) Pulse Ox 100 99 O2 Delivery Nasal Cannula Nasal Cannula Nasal Cannula O2 Flow Rate 6.0 6.0 6.0 05/02/17 05/02/17 05/02/17 05/02/17 16:39 17:00 18:00 19:00 Pulse 66 64 64 Resp 13 21 13 20 B/P (MAP) 108/53 (71) 106/53 (70) 91/38 (55) Pulse Ox 100 99 100 100 O2 Delivery Nasal Cannula Nasal Cannula Nasal Cannula Nasal Cannula O2 Flow Rate 6.0 6.0 6.0 6.0 05/02/17 05/02/17 05/02/17 05/02/17 19:38 20:00 20:00 20:12 Temp 97.8 97.8 Pulse 63 Resp 20 19 B/P (MAP) 113/60 (77) Pulse Ox 100 100 O2 Delivery Nasal Cannula Nasal Cannula Nasal Cannula O2 Flow Rate 5.0 6.0 6.0 6.0 05/02/17 05/02/17 05/02/17 05/02/17 21:00 21:09 22:00 23:00 Pulse 60 59 63 Resp 12 19 17 15 B/P (MAP) 105/55 (72) 101/54 (70) 103/56 (72) Pulse Ox 100 100 100 99 O2 Delivery Nasal Cannula Nasal Cannula Nasal Cannula Nasal Cannula O2 Flow Rate 6.0 6.0 6.0 6.0 05/02/17 05/03/17 05/03/17 05/03/17 23:22 00:00 00:00 00:21 Temp 98.0 98.0 Pulse 65 Resp 18 13 13 B/P (MAP) 96/53 (67) Pulse Ox 100 98 98 O2 Delivery Nasal Cannula BiPAP/CPAP Mask BiPAP/CPAP O2 Flow Rate 6.0 05/03/17 05/03/17 05/03/17 05/03/17 00:35 01:00 01:11 01:42 Pulse 61 Resp 25 14 14 18 B/P (MAP) 104/54 (71) Pulse Ox 99 100 100 O2 Delivery BiPAP/CPAP Nasal Cannula Nasal Cannula O2 Flow Rate 6.0 6.0 05/03/17 05/03/17 05/03/17 05/03/17 02:00 03:00 04:00 04:00 Temp 97.8 97.8 Pulse 59 59 64 Resp 13 11 12 B/P (MAP) 101/58 (72) 102/53 (69) 92/52 (65) Pulse Ox 100 100 100 O2 Delivery Nasal Cannula Nasal Cannula Nasal Cannula Nasal Cannula O2 Flow Rate 6.0 6.0 6.0 6.0 05/03/17 05/03/17 05/03/17 05/03/17 05:00 06:00 06:03 07:07 Pulse 60 63 63 Resp 17 12 25 12 B/P (MAP) 94/51 (65) 86/58 (67) 86/57 (67) Pulse Ox 100 100 100 100 O2 Delivery Nasal Cannula Nasal Cannula Nasal Cannula Nasal Cannula O2 Flow Rate 6.0 6.0 6.0 6.0 05/03/17 05/03/17 05/03/17 07:08 08:17 09:00 Pulse 62 Resp 25 B/P (MAP) 97/52 (67) Pulse Ox 100 100 O2 Delivery Nasal Cannula Nasal Cannula Nasal Cannula O2 Flow Rate 6.0 6.0 6.0 Intake and Output 05/02/17 05/02/17 05/03/17 15:00 23:00 07:00 Intake Total 1357 ml 327 ml Balance 1357 ml 327 ml RADHA MEYER MD May 03, 2017 09:51
--- NOTE | 2017-05-03 11:03 | PDOC ---
Dialysis Progress Note Dialysis Note Dialysis Note Seen on Hemodialysis, tolerating treatment Okay so far; remains marginal BP vazquez off Pressors Vitals on Hemodialysis: 89/62 66 afeb General Appearance: Awake: Alert Oriented x 3 Neck: No JVD or JVP Chest: CTA Breezy Heart: S1 S2 Abdomen - Soft NTND Extremities - No Edema x left Upper ext ESRD: Dialysis as below F 180 NR 4.5 Hrs 3 K 2.5 Ca 140 Na 35 HC03 Qb 350 + Qd 500+ Heparin 0 Units Uf 1 Kgs or to dry weight as tolerated May give 25-50 gms of 25% Albumin if needed to maintain Hemodynamic stability Treatment plan reviewed and discussed with learning administrator Vitals Vital Signs Vital Signs Date Time Temp Pulse Resp B/P (MAP) Pulse Ox O2 Delivery O2 Flow Rate FiO2 05/03/17 10:00 62 29 89/62 (71) 97 Nasal Cannula 6.0 05/03/17 04:00 97.8 97.8 Labs Last Labs Laboratory Tests Test 05/01/17 11:59 05/01/17 17:00 05/01/17 21:39 05/02/17 05:00 Glucose (Fingerstick) 205 mg/dL (70-99) 194 mg/dL (70-99) 226 mg/dL (70-99) Prothrombin Time 28.9 SEC (11.7-14.0) Prothromb Time International Ratio 2.9 (0.8-1.1) Test 05/02/17 05:10 05/02/17 12:51 05/02/17 17:38 05/02/17 21:11 White Blood Count 8.9 x10^3/uL (4.0-11.0) Red Blood Count 2.64 x10^6/uL (4.30-5.70) Hemoglobin 7.7 g/dL (13.0-17.5) Hematocrit 23.4 % (39.0-53.0) Mean Corpuscular Volume 89 fL (79-100) Mean Corpuscular Hemoglobin 29 pg (25-35) Mean Corpuscular Hemoglobin Concent 33 g/dL (31-37) Red Cell Distribution Width 17.3 % (11.5-14.5) Platelet Count 288 x10^3/uL (140-400) Neutrophils (%) (Auto) 79 % (31-73) Lymphocytes (%) (Auto) 11 % (24-48) Monocytes (%) (Auto) 7 % (0-9) Eosinophils (%) (Auto) 3 % (0-3) Basophils (%) (Auto) 0 % (0-3) Neutrophils # (Auto) 7.0 x10^3uL (1.8-7.7) Lymphocytes # (Auto) 1.0 x10^3/uL (1.0-4.8) Monocytes # (Auto) 0.6 x10^3/uL (0.0-1.1) Eosinophils # (Auto) 0.3 x10^3/uL (0.0-0.7) Basophils # (Auto) 0.0 x10^3/uL (0.0-0.2) Sodium Level 135 mmol/L (136-145) Potassium Level 4.0 mmol/L (3.5-5.1) Chloride Level 96 mmol/L (98-107) Carbon Dioxide Level 31 mmol/L (21-32) Anion Gap 8 (6-14) Blood Urea Nitrogen 38 mg/dL (8-26) Creatinine 4.6 mg/dL (0.7-1.3) Estimated GFR (Cockcroft-Gault) 13.1 Glucose Level 234 mg/dL (70-99) Calcium Level 8.1 mg/dL (8.5-10.1) Glucose (Fingerstick) 109 mg/dL (70-99) 204 mg/dL (70-99) 171 mg/dL (70-99) Test 05/03/17 06:10 White Blood Count 6.7 x10^3/uL (4.0-11.0) Red Blood Count 2.52 x10^6/uL (4.30-5.70) Hemoglobin 7.3 g/dL (13.0-17.5) Hematocrit 22.5 % (39.0-53.0) Mean Corpuscular Volume 89 fL (79-100) Mean Corpuscular Hemoglobin 29 pg (25-35) Mean Corpuscular Hemoglobin Concent 33 g/dL (31-37) Red Cell Distribution Width 17.2 % (11.5-14.5) Platelet Count 275 x10^3/uL (140-400) Neutrophils (%) (Auto) 69 % (31-73) Lymphocytes (%) (Auto) 16 % (24-48) Monocytes (%) (Auto) 8 % (0-9) Eosinophils (%) (Auto) 6 % (0-3) Basophils (%) (Auto) 1 % (0-3) Neutrophils # (Auto) 4.6 x10^3uL (1.8-7.7) Lymphocytes # (Auto) 1.1 x10^3/uL (1.0-4.8) Monocytes # (Auto) 0.6 x10^3/uL (0.0-1.1) Eosinophils # (Auto) 0.4 x10^3/uL (0.0-0.7) Basophils # (Auto) 0.1 x10^3/uL (0.0-0.2) Prothrombin Time 27.7 SEC (11.7-14.0) Prothromb Time International Ratio 2.8 (0.8-1.1) Sodium Level 132 mmol/L (136-145) Potassium Level 4.4 mmol/L (3.5-5.1) Chloride Level 95 mmol/L (98-107) Carbon Dioxide Level 29 mmol/L (21-32) Anion Gap 8 (6-14) Blood Urea Nitrogen 52 mg/dL (8-26) Creatinine 6.0 mg/dL (0.7-1.3) Estimated GFR (Cockcroft-Gault) 9.7 Glucose Level 148 mg/dL (70-99) Calcium Level 8.2 mg/dL (8.5-10.1) Laboratory Tests Test 05/02/17 12:51 05/02/17 17:38 05/02/17 21:11 05/03/17 06:10 Glucose (Fingerstick) 109 mg/dL (70-99) 204 mg/dL (70-99) 171 mg/dL (70-99) White Blood Count 6.7 x10^3/uL (4.0-11.0) Red Blood Count 2.52 x10^6/uL (4.30-5.70) Hemoglobin 7.3 g/dL (13.0-17.5) Hematocrit 22.5 % (39.0-53.0) Mean Corpuscular Volume 89 fL (79-100) Mean Corpuscular Hemoglobin 29 pg (25-35) Mean Corpuscular Hemoglobin Concent 33 g/dL (31-37) Red Cell Distribution Width 17.2 % (11.5-14.5) Platelet Count 275 x10^3/uL (140-400) Neutrophils (%) (Auto) 69 % (31-73) Lymphocytes (%) (Auto) 16 % (24-48) Monocytes (%) (Auto) 8 % (0-9) Eosinophils (%) (Auto) 6 % (0-3) Basophils (%) (Auto) 1 % (0-3) Neutrophils # (Auto) 4.6 x10^3uL (1.8-7.7) Lymphocytes # (Auto) 1.1 x10^3/uL (1.0-4.8) Monocytes # (Auto) 0.6 x10^3/uL (0.0-1.1) Eosinophils # (Auto) 0.4 x10^3/uL (0.0-0.7) Basophils # (Auto) 0.1 x10^3/uL (0.0-0.2) Prothrombin Time 27.7 SEC (11.7-14.0) Prothromb Time International Ratio 2.8 (0.8-1.1) Sodium Level 132 mmol/L (136-145) Potassium Level 4.4 mmol/L (3.5-5.1) Chloride Level 95 mmol/L (98-107) Carbon Dioxide Level 29 mmol/L (21-32) Anion Gap 8 (6-14) Blood Urea Nitrogen 52 mg/dL (8-26) Creatinine 6.0 mg/dL (0.7-1.3) Estimated GFR (Cockcroft-Gault) 9.7 Glucose Level 148 mg/dL (70-99) Calcium Level 8.2 mg/dL (8.5-10.1) YUMIKO SCHAFER MD May 03, 2017 11:03
[2017-05-03] MEDS: MIDODRINE 5 MG TABLET PO SCH ×2 (11:06→16:47)
[2017-05-03] MEDS: CALCIUM CARBONATE 500 MG TAB.CHEW PO SCH ×3 (11:30→16:48)
[2017-05-03] MEDS: oxyCODONE ER 10 MG TAB.ER.12H PO SCH ×2 (12:08→21:21)
[2017-05-03] MEDS: clonazePAM 0.5 MG TABLET PO SCH ×3 (14:00→21:20)
[2017-05-03] MEDS: PIOGLITAZONE 15 MG TABLET. PO SCH (14:23)
[2017-05-03] MEDS: FAMOTIDINE 20 MG TABLET. PO SCH (14:23)
[2017-05-03] MEDS: CITALOPRAM 20 MG TABLET. PO SCH (14:24)
[2017-05-03] MEDS: ATORVASTATIN CALCIUM 40 MG TABLET. PO SCH (14:24)
[2017-05-03] MEDS: FOLIC/VIT B COMP W-C (RENAL) TABLET. PO SCH (14:25)
--- NOTE | 2017-05-03 15:12 | PDOC ---
PROGRESS NOTES Subjective Subjective He is comfortable. Objective Objective Vital Signs Date Time Temp Pulse Resp B/P (MAP) Pulse Ox O2 Delivery O2 Flow Rate FiO2 05/03/17 14:07 25 Nasal Cannula 2.0 05/03/17 12:24 70 109/56 (73) 97 05/03/17 04:00 97.8 97.8 Intake and Output 05/03/17 07:00 Intake Total 1684 ml Balance 1684 ml Intake Oral 1440 ml IV Total 244 ml Physical Exam Physical Exam He is supine in bed and wound vac in place to left foot and some edema of left foot. Plan Plan of Care To LTAC or SNF when medically stable. Comment Review of Relevant I have reviewed the following items maria teresa (where applicable) has been applied. Labs Laboratory Tests Test 05/01/17 17:00 05/01/17 21:39 05/02/17 05:00 05/02/17 05:10 Glucose (Fingerstick) 194 mg/dL (70-99) 226 mg/dL (70-99) Prothrombin Time 28.9 SEC (11.7-14.0) Prothromb Time International Ratio 2.9 (0.8-1.1) White Blood Count 8.9 x10^3/uL (4.0-11.0) Red Blood Count 2.64 x10^6/uL (4.30-5.70) Hemoglobin 7.7 g/dL (13.0-17.5) Hematocrit 23.4 % (39.0-53.0) Mean Corpuscular Volume 89 fL (79-100) Mean Corpuscular Hemoglobin 29 pg (25-35) Mean Corpuscular Hemoglobin Concent 33 g/dL (31-37) Red Cell Distribution Width 17.3 % (11.5-14.5) Platelet Count 288 x10^3/uL (140-400) Neutrophils (%) (Auto) 79 % (31-73) Lymphocytes (%) (Auto) 11 % (24-48) Monocytes (%) (Auto) 7 % (0-9) Eosinophils (%) (Auto) 3 % (0-3) Basophils (%) (Auto) 0 % (0-3) Neutrophils # (Auto) 7.0 x10^3uL (1.8-7.7) Lymphocytes # (Auto) 1.0 x10^3/uL (1.0-4.8) Monocytes # (Auto) 0.6 x10^3/uL (0.0-1.1) Eosinophils # (Auto) 0.3 x10^3/uL (0.0-0.7) Basophils # (Auto) 0.0 x10^3/uL (0.0-0.2) Sodium Level 135 mmol/L (136-145) Potassium Level 4.0 mmol/L (3.5-5.1) Chloride Level 96 mmol/L (98-107) Carbon Dioxide Level 31 mmol/L (21-32) Anion Gap 8 (6-14) Blood Urea Nitrogen 38 mg/dL (8-26) Creatinine 4.6 mg/dL (0.7-1.3) Estimated GFR (Cockcroft-Gault) 13.1 Glucose Level 234 mg/dL (70-99) Calcium Level 8.1 mg/dL (8.5-10.1) Test 05/02/17 12:51 05/02/17 17:38 05/02/17 21:11 05/03/17 06:10 Glucose (Fingerstick) 109 mg/dL (70-99) 204 mg/dL (70-99) 171 mg/dL (70-99) White Blood Count 6.7 x10^3/uL (4.0-11.0) Red Blood Count 2.52 x10^6/uL (4.30-5.70) Hemoglobin 7.3 g/dL (13.0-17.5) Hematocrit 22.5 % (39.0-53.0) Mean Corpuscular Volume 89 fL (79-100) Mean Corpuscular Hemoglobin 29 pg (25-35) Mean Corpuscular Hemoglobin Concent 33 g/dL (31-37) Red Cell Distribution Width 17.2 % (11.5-14.5) Platelet Count 275 x10^3/uL (140-400) Neutrophils (%) (Auto) 69 % (31-73) Lymphocytes (%) (Auto) 16 % (24-48) Monocytes (%) (Auto) 8 % (0-9) Eosinophils (%) (Auto) 6 % (0-3) Basophils (%) (Auto) 1 % (0-3) Neutrophils # (Auto) 4.6 x10^3uL (1.8-7.7) Lymphocytes # (Auto) 1.1 x10^3/uL (1.0-4.8) Monocytes # (Auto) 0.6 x10^3/uL (0.0-1.1) Eosinophils # (Auto) 0.4 x10^3/uL (0.0-0.7) Basophils # (Auto) 0.1 x10^3/uL (0.0-0.2) Prothrombin Time 27.7 SEC (11.7-14.0) Prothromb Time International Ratio 2.8 (0.8-1.1) Sodium Level 132 mmol/L (136-145) Potassium Level 4.4 mmol/L (3.5-5.1) Chloride Level 95 mmol/L (98-107) Carbon Dioxide Level 29 mmol/L (21-32) Anion Gap 8 (6-14) Blood Urea Nitrogen 52 mg/dL (8-26) Creatinine 6.0 mg/dL (0.7-1.3) Estimated GFR (Cockcroft-Gault) 9.7 Glucose Level 148 mg/dL (70-99) Calcium Level 8.2 mg/dL (8.5-10.1) Test 05/03/17 10:59 05/03/17 14:27 Glucose (Fingerstick) 116 mg/dL (70-99) 100 mg/dL (70-99) Laboratory Tests Test 05/02/17 17:38 05/02/17 21:11 05/03/17 06:10 05/03/17 10:59 Glucose (Fingerstick) 204 mg/dL (70-99) 171 mg/dL (70-99) 116 mg/dL (70-99) White Blood Count 6.7 x10^3/uL (4.0-11.0) Red Blood Count 2.52 x10^6/uL (4.30-5.70) Hemoglobin 7.3 g/dL (13.0-17.5) Hematocrit 22.5 % (39.0-53.0) Mean Corpuscular Volume 89 fL (79-100) Mean Corpuscular Hemoglobin 29 pg (25-35) Mean Corpuscular Hemoglobin Concent 33 g/dL (31-37) Red Cell Distribution Width 17.2 % (11.5-14.5) Platelet Count 275 x10^3/uL (140-400) Neutrophils (%) (Auto) 69 % (31-73) Lymphocytes (%) (Auto) 16 % (24-48) Monocytes (%) (Auto) 8 % (0-9) Eosinophils (%) (Auto) 6 % (0-3) Basophils (%) (Auto) 1 % (0-3) Neutrophils # (Auto) 4.6 x10^3uL (1.8-7.7) Lymphocytes # (Auto) 1.1 x10^3/uL (1.0-4.8) Monocytes # (Auto) 0.6 x10^3/uL (0.0-1.1) Eosinophils # (Auto) 0.4 x10^3/uL (0.0-0.7) Basophils # (Auto) 0.1 x10^3/uL (0.0-0.2) Prothrombin Time 27.7 SEC (11.7-14.0) Prothromb Time International Ratio 2.8 (0.8-1.1) Sodium Level 132 mmol/L (136-145) Potassium Level 4.4 mmol/L (3.5-5.1) Chloride Level 95 mmol/L (98-107) Carbon Dioxide Level 29 mmol/L (21-32) Anion Gap 8 (6-14) Blood Urea Nitrogen 52 mg/dL (8-26) Creatinine 6.0 mg/dL (0.7-1.3) Estimated GFR (Cockcroft-Gault) 9.7 Glucose Level 148 mg/dL (70-99) Calcium Level 8.2 mg/dL (8.5-10.1) Test 05/03/17 14:27 Glucose (Fingerstick) 100 mg/dL (70-99) Medications Current Medications Acetaminophen/ Hydrocodone Bitart (Lortab 10/325) 1 tab PRN Q6HRS PRN PO PAIN Last administered on 05/03/17 14:07; Start 04/28/17 at 18:45 Atorvastatin Calcium (Lipitor) 40 mg DAILY PO Last administered on 05/03/17 14 :24; Start 04/29/17 at 09:00 Clonazepam (KlonoPIN) 0.5 mg PRN Q6HRS PRN PO ANXIETY / AGITATION; Start 04/28 at 21:15 Famotidine (Pepcid) 20 mg DAILY PO ; Start 04/29/17 at 09:00; Stop 04/29/17 at 14:04; Status DC Ferrous Sulfate (Feosol) 325 mg DAILY PO Last administered on 05/01/17 09:25; Start 04/29/17 at 09:00; Stop 05/01/17 at 12:55; Status DC Vitamin B Complex/ Vitamin C (Sapphire-Sara) 1 tab DAILY PO Last administered on 14:25; Start 04/29/17 at 09:00 Lisinopril (Prinivil) 10 mg DAILY PO Last administered on 05/01/17 09:25; Start 04/29/17 at 09:00 Oxycodone HCl (OxyCONTIN) 10 mg BID PO Last administered on 05/03/17 12:08; Start 04/29/17 at 09:00 Senna/Docusate Sodium (Senna Plus) 2 tab PRN DAILY PRN PO CONSTIPATION 1ST CHOICE; Start 04/28/17 at 21:15 Trazodone HCl (Desyrel) 50 mg PRN QHS PRN PO INSOMNIA Last administered on 04/30 20:59; Start 04/28/17 at 21:15 Calcium Carbonate/ Glycine (Tums) 500 mg TIDAC PO Last administered on 14:23; Start 04/29/17 at 07:30 Citalopram Hydrobromide (CeleXA) 20 mg DAILY PO Last administered on 05/03/17 14:24; Start 04/29/17 at 09:00 Insulin Detemir (Levemir) 22 units QHS SQ ; Start 04/29/17 at 21:00; Stop at 21:00; Status DC Insulin Aspart (NovoLOG) 2 units TIDAC SQ ; Start 04/29/17 at 07:30; Stop at 07:30; Status DC Pioglitazone HCl (Actos) 45 mg DAILY PO Last administered on 05/03/17 14:23; Start 04/29/17 at 09:00 Insulin Detemir (Levemir) 12 units QHS SQ Last administered on 05/02/17 21:12 ; Start 04/29/17 at 21:00 Insulin Aspart (NovoLOG) 0-5 UNITS TIDWMEALS SQ ; Start 04/29/17 at 08:00; Stop 04/29/17 at 14:05; Status DC Dextrose (Dextrose 50%-Water Syringe) 12.5 gm PRN Q15MIN PRN IV SEE COMMENTS; Start 04/28/17 at 22:00; Stop 04/29/17 at 12:17; Status DC Clonazepam (KlonoPIN) 0.5 mg TID PO Last administered on 05/03/17 14:23; Start 04/28/17 at 22:00 Diphenoxylate HCl/ Atropine (Lomotil) 1 tab PRN QID PRN PO DIARRHEA; Start at 22:00 Midodrine (Proamatine) 5 mg BIDBFRMEAL PO Last administered on 05/03/17 11:06 ; Start 04/29/17 at 07:30 Polyethylene Glycol (miraLAX PACKET) 17 gm PRN DAILY PRN PO CONSTIPATION; Start 04/28/17 at 22:00 Warfarin Sodium (Coumadin) 3 mg DAILY16 PO Last administered on 05/02/17 16:38 ; Start 04/29/17 at 16:00 Darbepoetin Noel (Aranesp) 60 mcg Th SQ Last administered on 04/29/17 22:11; Start 04/29/17 at 21:00 Ondansetron HCl (Zofran) 4 mg PRN Q4HRS PRN IV NAUSEA; Start 04/28/17 at 22:00 Warfarin Sodium (Coumadin Per Physician) 1 each PRN DAILY PRN MC SEE COMMENTS Last administered on 05/03/17 09:57; Start 04/28/17 at 22:15 Sodium Chloride 1,000 ml @ 1,000 mls/hr Q1H PRN IV hypotension; Start at 08:39; Stop 04/29/17 at 14:38; Status DC Albumin Human 200 ml @ 200 mls/hr 1X PRN PRN IV Hypotension; Start 04/29/17 at 08:45; Stop 04/29/17 at 14:44; Status DC Sodium Chloride 1,000 ml @ 400 mls/hr Q2H30M PRN IV PATENCY; Start 04/29/17 at 08:39; Stop 04/29/17 at 20:38; Status DC Info (PHARMACY MONITORING -- do not chart) 1 each PRN DAILY PRN MC SEE COMMENTS ; Start 04/29/17 at 08:45; Status UNV Info (PHARMACY MONITORING -- do not chart) 1 each PRN DAILY PRN MC SEE COMMENTS ; Start 04/29/17 at 08:45 Insulin Aspart (NovoLOG) 0-7 UNITS TIDWMEALS SQ Last administered on 05/02/17 17:40; Start 04/29/17 at 12:00 Dextrose (Dextrose 50%-Water Syringe) 12.5 gm PRN Q15MIN PRN IV SEE COMMENTS; Start 04/29/17 at 10:00 Darbepoetin Noel (Aranesp) 60 mcg WEEKLYHS SQ ; Start 04/29/17 at 21:00; Stop 04/29/17 at 21:00; Status DC Famotidine (Pepcid) 20 mg Q48H PO Last administered on 05/03/17 14:23; Start 05/01/17 at 09:00 Fentanyl Citrate (Fentanyl 2ml Vial) 12.5 mcg PRN Q3HRS PRN IM PAIN; Start at 14:15; Stop 04/29/17 at 14:34; Status DC Fentanyl Citrate (Fentanyl 2ml Vial) 12.5 mcg PRN Q3HRS PRN IV PAIN Last administered on 05/02/17 23:22; Start 04/29/17 at 14:45 Propofol 20 ml @ As Directed STK-MED ONCE IV ; Start 04/29/17 at 15:45; Stop 04/29/17 at 15:46; Status DC Lidocaine HCl (Lidocaine Pf 2% Vial) 5 ml STK-MED ONCE .ROUTE ; Start 04/29/17 at 15:45; Stop 04/29/17 at 15:46; Status DC Succinylcholine Chloride (Anectine) 200 mg STK-MED ONCE .ROUTE ; Start at 15:46; Stop 04/29/17 at 15:47; Status DC Rocuronium [place] (Zemuron) 50 mg STK-MED ONCE .ROUTE ; Start 04/29/17 at 15: 46; Stop 04/29/17 at 15:47; Status DC Fentanyl Citrate (Fentanyl 2ml Vial) 100 mcg STK-MED ONCE .ROUTE ; Start at 15:46; Stop 04/29/17 at 15:47; Status DC Cefazolin Sodium/ Dextrose 50 ml @ As Directed STK-MED ONCE IV ; Start at 16:46; Stop 04/29/17 at 16:47; Status DC Ephedrine Sulfate (Akovaz) 50 mg STK-MED ONCE .ROUTE ; Start 04/29/17 at 16:47 ; Stop 04/29/17 at 16:48; Status DC Rocuronium [place] (Zemuron) 50 mg STK-MED ONCE .ROUTE ; Start 04/29/17 at 17: 23; Stop 04/29/17 at 17:24; Status DC Fentanyl Citrate (Fentanyl 2ml Vial) 100 mcg STK-MED ONCE .ROUTE ; Start at 17:23; Stop 04/29/17 at 17:24; Status DC Ondansetron HCl (Zofran) 4 mg STK-MED ONCE .ROUTE ; Start 04/29/17 at 17:32; Stop 04/29/17 at 17:33; Status DC Neostigmine Methylsulfate (Bloxiverz) 10 mg STK-MED ONCE .ROUTE ; Start at 17:32; Stop 04/29/17 at 17:33; Status DC Glycopyrrolate (Robinul) 1 mg STK-MED ONCE .ROUTE ; Start 04/29/17 at 17:33; Stop 04/29/17 at 17:34; Status DC Albumin Human 500 ml @ As Directed STK-MED ONCE IV ; Start 04/29/17 at 17:50; Stop 04/29/17 at 17:51; Status DC Vasopressin (Vasostrict) 20 unit STK-MED ONCE .ROUTE ; Start 04/29/17 at 17:53 ; Stop 04/29/17 at 17:54; Status DC Sodium Chloride (Sodium Chloride) 50 ml STK-MED ONCE IJ ; Start 04/29/17 at 17: 54; Stop 04/29/17 at 17:55; Status DC Phenylephrine HCl 80 mg/Sodium Chloride 258 ml @ 0 mls/hr CONT PRN IV SEE I/O RECORD Last administered on 05/02/17t 21:09; Start 04/29/17 at 20:30 Fentanyl Citrate (Fentanyl 2ml Vial) 25 mcg PRN Q5MIN PRN IV Acute Pain; Start 04/29/17 at 20:30; Stop 04/30/17 at 20:29; Status DC Fentanyl Citrate (Fentanyl 2ml Vial) 50 mcg PRN Q5MIN PRN IV Acute Pain; Start 04/29/17 at 20:30; Stop 04/30/17 at 20:29; Status DC Morphine Sulfate 2 mg PRN Q10MIN PRN IV Mild Pain; Start 04/29/17 at 20:30; Stop 04/30/17 at 20:29; Status DC Hydromorphone HCl (Dilaudid) 0.2 mg PRN Q10MIN PRN IV Mild pain; Start at 20:30; Stop 04/30/17 at 20:29; Status DC Ondansetron HCl (Zofran) 4 mg PRN Q6HRS PRN IV Nausea, 1st Choice; Start 04/29 at 20:30; Stop 04/30/17 at 20:29; Status DC Sodium Chloride 1,000 ml @ 1,000 mls/hr Q1H PRN IV hypotension; Start 04/30/17 at 08:33; Stop 04/30/17 at 14:32; Status DC Diphenhydramine HCl (Benadryl) 25 mg 1X PRN PRN IV ITCHING; Start 04/30/17 at 08:45; Stop 05/01/17 at 08:44; Status DC Diphenhydramine HCl (Benadryl) 25 mg 1X PRN PRN IV ITCHING; Start 04/30/17 at 08:45; Stop 05/01/17 at 08:44; Status DC Sodium Chloride 1,000 ml @ 400 mls/hr Q2H30M PRN IV PATENCY; Start 04/30/17 at 08:33; Stop 04/30/17 at 20:32; Status DC Info (PHARMACY MONITORING -- do not chart) 1 each PRN DAILY PRN MC SEE COMMENTS ; Start 04/30/17 at 08:45; Status UNV Sodium Chloride 1,000 ml @ 1,000 mls/hr Q1H PRN IV hypotension; Start 05/03/17 at 08:15; Stop 05/03/17 at 14:14; Status DC Sodium Chloride 1,000 ml @ 400 mls/hr Q2H30M PRN IV PATENCY; Start 05/03/17 at 08:15; Stop 05/03/17 at 20:14 Info (PHARMACY MONITORING -- do not chart) 1 each PRN DAILY PRN MC SEE COMMENTS ; Start 05/03/17 at 08:15; Status UNV Info (PHARMACY MONITORING -- do not chart) 1 each PRN DAILY PRN MC SEE COMMENTS ; Start 05/03/17 at 08:15; Status UNV Active Scripts Active Hydrocodone-Apap 10-325 (Hydrocodone Bit/Acetaminophen) 1 Each Tablet 1 Tab PO PRN Q6HRS PRN 30 Days Senna-Time S Tablet (Sennosides/Docusate Sodium) 1 Each Tablet 2 Tab PO PRN DAILY PRN Reported Aranesp Syringe (Darbepoetin Noel In Polysorbat) 60 Mcg/0.3 Ml Disp.syrin 60 Mcg SQ WE@2100 Warfarin Sodium 3 Mg Tablet 1 Tab PO DAILY Midodrine Hcl 5 Mg Tablet 5 Mg PO BID at 10 and 18 Clonazepam 0.5 Mg Tablet 1 Tab PO TID [micro guard2% powd] TOP [moriah] Miralax (Polyethylene Glycol 3350) 17 Gm Powd.pack 1 Packet PO DAILY PRN Actos (Pioglitazone Hcl) 45 Mg Tablet 1 Tab PO DAILY Ondansetron HCl 4 mg/2 ml Syr (Ondansetron HCl/Pf) 4 Mg/2 Ml Syringe 4 Mg IV Q4HRS PRN Lomotil Tablet (Diphenoxylate Hcl/Atropine) 1 Each Tablet 1 Tab PO QID PRN Humalog (Insulin Lispro) 100 Unit/1 Ml Cartridge 0 SQ TIDAC sliding scale Lisinopril 10 Mg Tablet 10 Mg PO DAILY Oxycontin (Oxycodone HCl) 10 Mg Tab.er.12h 10 Mg PO BID Nephro-Sara Tablet (Folic Acid/Vitamin B Comp W-C) 0.8 Mg Tablet 0.8 Mg PO DAILY Ferrous Sulfate 325 Mg Tablet 325 Mg PO DAILY Famotidine 20 Mg Tablet 20 Mg PO DAILY Clonazepam 0.5 Mg Tablet 0.5 Mg PO Q6HRS PRN Escitalopram Oxalate 10 Mg Tablet 10 Mg PO DAILY Lantus Solostar (Insulin Glargine,Hum.rec.anlog) 100 Unit/1 Ml Insuln.pen 12 Units SQ QHS Trazodone Hcl 50 Mg Tablet 50 Mg PO PRN QHS PRN Actos (Pioglitazone Hcl) 45 Mg Tablet 1 Tab PO DAILY Tums (Calcium Carbonate) 300 Mg Tab.chew 300 Mg PO TIDAC Atorvastatin Calcium 20 Mg Tablet 40 Mg PO DAILY Vitals/I & O Vital Sign - Last 24 Hours 05/02/17 05/02/17 05/02/17 05/02/17 16:00 16:00 16:38 16:39 Pulse 67 69 Resp 14 13 B/P (MAP) 103/53 (70) Pulse Ox 99 100 O2 Delivery Nasal Cannula Nasal Cannula Nasal Cannula O2 Flow Rate 6.0 6.0 6.0 05/02/17 05/02/17 05/02/17 05/02/17 17:00 18:00 19:00 19:38 Pulse 66 64 64 Resp 21 13 20 20 B/P (MAP) 108/53 (71) 106/53 (70) 91/38 (55) Pulse Ox 99 100 100 100 O2 Delivery Nasal Cannula Nasal Cannula Nasal Cannula Nasal Cannula O2 Flow Rate 6.0 6.0 6.0 5.0 05/02/17 05/02/17 05/02/17 05/02/17 20:00 20:00 20:12 21:00 Temp 97.8 97.8 Pulse 63 60 Resp 19 12 B/P (MAP) 113/60 (77) 105/55 (72) Pulse Ox 100 100 O2 Delivery Nasal Cannula Nasal Cannula Nasal Cannula O2 Flow Rate 6.0 6.0 6.0 6.0 05/02/17 05/02/17 05/02/17 05/02/17 21:09 22:00 23:00 23:22 Pulse 59 63 Resp 19 17 15 18 B/P (MAP) 101/54 (70) 103/56 (72) Pulse Ox 100 100 99 100 O2 Delivery Nasal Cannula Nasal Cannula Nasal Cannula Nasal Cannula O2 Flow Rate 6.0 6.0 6.0 6.0 05/03/17 05/03/17 05/03/17 05/03/17 00:00 00:00 00:21 00:35 Temp 98.0 98.0 Pulse 65 Resp 13 13 25 B/P (MAP) 96/53 (67) Pulse Ox 98 98 99 O2 Delivery BiPAP/CPAP Mask BiPAP/CPAP BiPAP/CPAP O2 Flow Rate 05/03/17 05/03/17 05/03/17 05/03/17 01:00 01:11 01:42 02:00 Pulse 61 59 Resp 14 14 18 13 B/P (MAP) 104/54 (71) 101/58 (72) Pulse Ox 100 100 100 O2 Delivery Nasal Cannula Nasal Cannula Nasal Cannula O2 Flow Rate 6.0 6.0 6.0 05/03/17 05/03/17 05/03/17 05/03/17 03:00 04:00 04:00 05:00 Temp 97.8 97.8 Pulse 59 64 60 Resp 11 12 17 B/P (MAP) 102/53 (69) 92/52 (65) 94/51 (65) Pulse Ox 100 100 100 O2 Delivery Nasal Cannula Nasal Cannula Nasal Cannula Nasal Cannula O2 Flow Rate 6.0 6.0 6.0 6.0 05/03/17 05/03/17 05/03/17 05/03/17 06:00 06:03 07:07 07:08 Pulse 63 63 Resp 12 25 12 B/P (MAP) 86/58 (67) 86/57 (67) Pulse Ox 100 100 100 100 O2 Delivery Nasal Cannula Nasal Cannula Nasal Cannula Nasal Cannula O2 Flow Rate 6.0 6.0 6.0 6.0 05/03/17 05/03/17 05/03/17 05/03/17 08:17 09:00 09:00 10:00 Pulse 67 62 62 Resp 25 29 B/P (MAP) 89/62 97/52 (67) 89/62 (71) Pulse Ox 100 97 O2 Delivery Nasal Cannula Nasal Cannula Nasal Cannula O2 Flow Rate 6.0 6.0 6.0 05/03/17 05/03/17 05/03/17 05/03/17 11:01 11:06 11:34 12:08 Pulse 71 64 Resp 20 B/P (MAP) 92/52 (65) 92/52 Pulse Ox 99 99 O2 Delivery Nasal Cannula Nasal Cannula Nasal Cannula O2 Flow Rate 6.0 6.0 6.0 05/03/17 05/03/17 12:24 14:07 Pulse 70 Resp 20 25 B/P (MAP) 109/56 (73) Pulse Ox 97 O2 Delivery Nasal Cannula Nasal Cannula O2 Flow Rate 6.0 2.0 Intake and Output 05/02/17 05/02/17 05/03/17 15:00 23:00 07:00 Intake Total 1357 ml 327 ml Balance 1357 ml 327 ml MORRIS HARMAN MD May 03, 2017 15:12
[2017-05-03] MEDS: fentaNYL PF VIAL 100 MCG/2 ML VIAL IV PRN (16:28)
[2017-05-03] MEDS: WARFARIN 3 MG TABLET. PO SCH (16:47)
--- NOTE | 2017-05-03 17:22 | CARD ---
APPROVED REPORT EXAM: Two-dimensional and M-mode echocardiogram with Doppler and color Doppler. Other Information Quality : Good INDICATION CAD Congestive Heart Failure 2D DIMENSIONS Left Atrium(2D)4.6 (1.6-4.0cm)IVSd1.6 (0.7-1.1cm) Aortic Root(2D)2.8 (2.0-3.7cm)LVDd5.5 (3.9-5.9cm) LVOT Diameter2.1 (1.8-2.4cm)PWd1.4 (0.7-1.1cm) LVDs4.1 (2.5-4.0cm)FS (%) 24.5 % SV70.8 mlLVEF(%)40.0 (>50%) Aortic Valve AoV Peak Tino.278.4cm/sAoV VTI58.3cm AO Peak GR.31.0mmHgLVOT VTI 31.13cm AO Mean GR.16mmHgAVA (VTI)1.80cm2 Mitral Valve MV E Xnhfclnt71.1cm/sMV DECEL [id number] MV A Amiizunu28.5cm/sE/A Ratio1.1 TDI Lateral E' P. V9.14cm/sMedial E' P. V7.79cm/s E/Lateral E'9.1E/Medial E'10.7 Tricuspid Valve TR P. [id number]/sRAP [id number] TR Peak Gr.[id number] LEFT VENTRICLE The left ventricle is normal size. There is moderate concentric left ventricular hypertrophy. Left ve ntricle systolic function is bellow normal. The estimated Ejection Fraction is 40%. There is mild hyp okinesis in the basal inferoseptal wall. Tissue Doppler imaging reveals abnormal left ventricular johnnie stolic dysfunction. RIGHT VENTRICLE The right ventricle is mildly to moderately dilated. The right ventricular systolic function is martha l. ATRIA The left atrium is moderately dilated. The right atrium is mildly dilated. The interatrial septum is intact with no evidence for an atrial septal defect or patent foramen ovale as noted on 2-D or Dopple r imaging. AORTIC VALVE The aortic valve is mildly to moderately calcified. Doppler and Color Flow revealed mild aortic regur gitation. Calculated aortic valve area is 1.8 cm2 with maximum pressure gradient of 31 mmHg and mean pressure gradient of 16 mmHg. MITRAL VALVE The mitral valve is calcified but opens well. There is no evidence of mitral valve prolapse. There is no mitral valve stenosis. Doppler and Color-flow revealed mild mitral regurgitation. TRICUSPID VALVE The tricuspid valve is normal in structure. Doppler and Color Flow revealed mild tricuspid regurgitat ion. There is no pulmonary hypertension. The PA pressure was estimated at 16 mmHg. There is no tricus pid valve prolapse or vegetation. There is no tricuspid valve stenosis. PULMONIC VALVE The pulmonary valve is normal in structure and function. Doppler and Color Flow revealed no pulmonic valvular regurgitation. There is no pulmonic valvular stenosis. GREAT VESSELS The aortic root is normal in size. The ascending aorta is normal in size. The IVC is normal in size a nd collapses >50% with inspiration. PERICARDIAL EFFUSION There is moderate left and righ sided pleural effusion. There is a small pericardial effusion. Critical Notification Critical Value: No <Conclusion> Left ventricle systolic function is bellow normal. The estimated Ejection Fraction is 40%. Tissue Doppler imaging reveals abnormal left ventricular diastolic dysfunction. The right ventricle is mildly to moderately dilated. The left atrium is moderately dilated. The right atrium is mildly dilated. The aortic valve is mildly to moderately calcified. Doppler and Color Flow revealed mild aortic regurgitation. Calculated aortic valve area is 1.8 cm2 with maximum pressure gradient of 31 mmHg and mean pressure g radient of 16 mmHg. Doppler and Color-flow revealed mild mitral regurgitation. Doppler and Color Flow revealed mild tricuspid regurgitation. There is no pulmonary hypertension. The PA pressure was estimated at 16 mmHg. The pulmonary valve is normal in structure and function. There is moderate left and righ sided pleural effusion. There is a small pericardial effusion.
[2017-05-03] MEDS: INSULIN DETEMIR 300 UNITS/3 ML INSULN.PEN. SQ SCH (21:28)
[2017-05-04] VITALS (23 sets, daily range): BP systolic 81–138; BP diastolic 40–65
[2017-05-04] MEDS: HYDROcodone/APAP 10/325 1 TAB TABLET PO PRN (04:02)
[2017-05-04] MEDS ORDERED: ALTEPLASE 2 MG VIAL INT CAT ONE (06:00)
[2017-05-04 06:11] LABS: BASO # 0.1 x10^3/uL (0.0-0.2); BASO % 1 % (0-3); EOS % 4 % (0-3); HEMATOCRIT 21.9 % (39.0-53.0); LYMPH % 15 % (24-48); MEAN CORPUSCULAR HEMOGLOBIN 29 pg (25-35); MEAN CORPUSCULAR HGB CONC 32 g/dL (31-37); MEAN CORPUSCULAR VOLUME 89 fL (79-100); MONO % 10 % (0-9); NEUT % 71 % (31-73); RED CELL DISTRIBUTION WIDTH 17.3 % (11.5-14.5); WHITE BLOOD COUNT 6.4 x10^3/uL (4.0-11.0)
[2017-05-04 06:15] LABS: CALCIUM 8.2 mg/dL (8.5-10.1); CREATININE 3.8 mg/dL (0.7-1.3); GFR 16.4; POTASSIUM 3.9 mmol/L (3.5-5.1)
[2017-05-04 06:18] LABS: INR 2.7 (0.8-1.1); PLATELET COUNT 323 x10^3/uL (140-400); PROTHROMBIN TIME PATIENT 26.8 SEC (11.7-14.0); RED BLOOD COUNT 2.46 x10^6/uL (4.30-5.70)
[2017-05-04] MEDS: INSULIN ASPART 300 UNITS/3 ML INSULN.PEN SQ SCH ×3 (08:00→16:59)
[2017-05-04] MEDS: LISINOPRIL 10 MG TABLET PO SCH (08:30)
[2017-05-04] MEDS: clonazePAM 0.5 MG TABLET PO SCH ×3 (08:38→20:54)
[2017-05-04] MEDS: CALCIUM CARBONATE 500 MG TAB.CHEW PO SCH ×3 (08:38→16:53)
[2017-05-04] MEDS: MIDODRINE 5 MG TABLET PO SCH ×2 (08:39→16:53)
[2017-05-04] MEDS: oxyCODONE ER 10 MG TAB.ER.12H PO SCH ×2 (08:39→19:38)
[2017-05-04] MEDS: FOLIC/VIT B COMP W-C (RENAL) TABLET. PO SCH (08:39)
[2017-05-04] MEDS: PIOGLITAZONE 15 MG TABLET. PO SCH (08:40)
[2017-05-04] MEDS: ATORVASTATIN CALCIUM 40 MG TABLET. PO SCH (08:41)
[2017-05-04] MEDS: CITALOPRAM 20 MG TABLET. PO SCH (08:41)
--- NOTE | 2017-05-04 08:56 | PDOC ---
SUBJECTIVE ROS ESRD doign and feeling OK overall CVS: no Orthopnea, no CP RESP: no SOB, no SHAH GI: no Nausea, no Vomiting : no Dysuria, no Urgency OBJECTIVE Vital Signs Vital Signs Date Time Temp Pulse Resp B/P (MAP) Pulse Ox O2 Delivery O2 Flow Rate FiO2 05/04/17 08:39 68 109/56 05/04/17 08:39 14 100 Nasal Cannula 2.0 05/04/17 08:00 98.7 98.7 I & 0 Intake and Output 05/04/17 07:00 Intake Total 295 ml Output Total 0 ml Balance 295 ml Intake Oral 295 ml Output Urine Total 0 ml PHYSICAL EXAM Physical Exam GEN: Awake, Oriented x 3, In no distress EYES: Vision Unchanged, Conjunctiva Normal EN: No EN Drainage, Mucous Membranes dryish NECK: no JVD, no JVP, Supple, no Thyromegaly CVS: S1S2, + Murmur, No Gallop, No Rub,no Edema RESP: no Rales, no Rhonchi,no Acc. Muscle Use GI: BS + ve, NO Bruit, Non Tender, Non Distended : no CVA tenderness, no Suprapubic Tenderness DIAGNOSIS/ASSESSMENT Assessment & Plan ESRD: Current fluid and E-lyte status does not necessitate emergent need for dialysis. Will re-evaluate for dialysis in the am and continue on MWF schedule. ANEMIA; Aranesp as ordered, Transfuse with next HD as needed if hgb < 7 at [facility] HypoTN: now resolved and is off of Pressors. Based on ECHO he could use ^ed Fluid volume BONE & MINERAL: follow phos and alter binder regimen as needed Transfer to [facility] as d/w Dr Araujo Discussed Plan of Care with pt who agrees COMMENT/RELEVANT DATA Meds Current Medications Medications (Trade) Dose Ordered Sig/Nanette Start Time Stop Time Status Last Admin Dose Admin Acetaminophen/ Hydrocodone Bitart (Lortab 10/325) 1 tab PRN Q6HRS PRN 04/28/17 18:45 05/04/17 04:02 1 TAB Albumin Human 500 ml @ As Directed STK-MED ONCE 04/29/17 17:50 04/29/17 17:51 DC Alteplase, Recombinant (Cathflo) 2 mg 1X ONCE 05/04/17 06:00 05/04/17 06:01 DC 05/04/17 06:29 2 MG Atorvastatin Calcium (Lipitor) 40 mg DAILY 04/29/17 09:00 05/04/17 08:41 40 MG Calcium Carbonate/ Glycine (Tums) 500 mg TIDAC 04/29/17 07:30 05/04/17 08:38 500 MG Cefazolin Sodium/ Dextrose 50 ml @ As Directed STK-MED ONCE 04/29/17 16:46 04/29/17 16:47 DC Citalopram Hydrobromide (CeleXA) 20 mg DAILY 04/29/17 09:00 05/04/17 08:41 20 MG Clonazepam (KlonoPIN) 0.5 mg TID 04/28/17 22:00 05/04/17 08:38 0.5 MG Darbepoetin Noel (Aranesp) 60 mcg WEEKLYHS 04/29/17 21:00 04/29/17 21:00 DC Dextrose (Dextrose 50%-Water Syringe) 12.5 gm PRN Q15MIN PRN 04/29/17 10:00 Diphenhydramine HCl (Benadryl) 25 mg 1X PRN PRN 04/30/17 08:45 05/01/17 08:44 DC Diphenoxylate HCl/ Atropine (Lomotil) 1 tab PRN QID PRN 04/28/17 22:00 Ephedrine Sulfate (Akovaz) 50 mg STK-MED ONCE 04/29/17 16:47 04/29/17 16:48 DC Famotidine (Pepcid) 20 mg Q48H 05/01/17 09:00 05/03/17 14:23 20 MG Fentanyl Citrate (Fentanyl 2ml Vial) 50 mcg PRN Q5MIN PRN 04/29/17 20:30 04/30/17 20:29 DC Ferrous Sulfate (Feosol) 325 mg DAILY 04/29/17 09:00 05/01/17 12:55 DC 05/01/17 09:25 325 MG Glycopyrrolate (Robinul) 1 mg STK-MED ONCE 04/29/17 17:33 04/29/17 17:34 DC Hydromorphone HCl (Dilaudid) 0.2 mg PRN Q10MIN PRN 04/29/17 20:30 04/30/17 20:29 DC Info (PHARMACY MONITORING -- do not chart) 1 each PRN DAILY PRN 05/03/17 08:15 UNV Insulin Aspart (NovoLOG) 0-7 UNITS TIDWMEALS 04/29/17 12:00 05/02/17 17:40 4 UNITS Insulin Detemir (Levemir) 12 units QHS 04/29/17 21:00 05/03/17 21:28 12 UNITS Lidocaine HCl (Lidocaine Pf 2% Vial) 5 ml STK-MED ONCE 04/29/17 15:45 04/29/17 15:46 DC Lisinopril (Prinivil) 10 mg DAILY 04/29/17 09:00 05/01/17 09:25 10 MG Midodrine (Proamatine) 5 mg BIDBFRMEAL 04/29/17 07:30 05/04/17 08:39 5 MG Morphine Sulfate 2 mg PRN Q10MIN PRN 04/29/17 20:30 04/30/17 20:29 DC Neostigmine Methylsulfate (Bloxiverz) 10 mg STK-MED ONCE 04/29/17 17:32 04/29/17 17:33 DC Ondansetron HCl (Zofran) 4 mg PRN Q6HRS PRN 04/29/17 20:30 04/30/17 20:29 DC Oxycodone HCl (OxyCONTIN) 10 mg BID 04/29/17 09:00 05/04/17 08:39 10 MG Phenylephrine HCl 80 mg/Sodium Chloride 258 ml @ 0 mls/hr CONT PRN 04/29/17 20:30 05/02/17 21:09 10.64 MLS/HR Pioglitazone HCl (Actos) 45 mg DAILY 04/29/17 09:00 05/04/17 08:40 45 MG Polyethylene Glycol (miraLAX PACKET) 17 gm PRN DAILY PRN 04/28/17 22:00 Propofol 20 ml @ As Directed STK-MED ONCE 04/29/17 15:45 04/29/17 15:46 DC Rocuronium [place] (Zemuron) 50 mg STK-MED ONCE 04/29/17 17:23 04/29/17 17:24 DC Senna/Docusate Sodium (Senna Plus) 2 tab PRN DAILY PRN 04/28/17 21:15 Sodium Chloride 1,000 ml @ 400 mls/hr Q2H30M PRN 05/03/17 08:15 05/03/17 20:14 DC Sodium Chloride (Sodium Chloride) 50 ml STK-MED ONCE 04/29/17 17:54 04/29/17 17:55 DC Succinylcholine Chloride (Anectine) 200 mg STK-MED ONCE 04/29/17 15:46 04/29/17 15:47 DC Trazodone HCl (Desyrel) 50 mg PRN QHS PRN 04/28/17 21:15 04/30/17 20:59 50 MG Vasopressin (Vasostrict) 20 unit STK-MED ONCE 04/29/17 17:53 04/29/17 17:54 DC Vitamin B Complex/ Vitamin C (Sapphire-Sara) 1 tab DAILY 04/29/17 09:00 05/04/17 08:39 1 TAB Warfarin Sodium (Coumadin Per Physician) 1 each PRN DAILY PRN 04/28/17 22:15 05/03/17 09:57 1 EACH Warfarin Sodium (Coumadin) 3 mg DAILY16 04/29/17 16:00 05/03/17 16:47 3 MG Lab Laboratory Tests Test 05/03/17 10:59 05/03/17 14:27 05/03/17 21:24 05/04/17 05:45 Glucose (Fingerstick) 116 mg/dL (70-99) 100 mg/dL (70-99) 133 mg/dL (70-99) White Blood Count 6.4 x10^3/uL (4.0-11.0) Red Blood Count 2.46 x10^6/uL (4.30-5.70) Hemoglobin 7.0 g/dL (13.0-17.5) Hematocrit 21.9 % (39.0-53.0) Mean Corpuscular Volume 89 fL (79-100) Mean Corpuscular Hemoglobin 29 pg (25-35) Mean Corpuscular Hemoglobin Concent 32 g/dL (31-37) Red Cell Distribution Width 17.3 % (11.5-14.5) Platelet Count 323 x10^3/uL (140-400) Neutrophils (%) (Auto) 71 % (31-73) Lymphocytes (%) (Auto) 15 % (24-48) Monocytes (%) (Auto) 10 % (0-9) Eosinophils (%) (Auto) 4 % (0-3) Basophils (%) (Auto) 1 % (0-3) Neutrophils # (Auto) 4.6 x10^3uL (1.8-7.7) Lymphocytes # (Auto) 1.0 x10^3/uL (1.0-4.8) Monocytes # (Auto) 0.6 x10^3/uL (0.0-1.1) Eosinophils # (Auto) 0.2 x10^3/uL (0.0-0.7) Basophils # (Auto) 0.1 x10^3/uL (0.0-0.2) Prothrombin Time 26.8 SEC (11.7-14.0) Prothromb Time International Ratio 2.7 (0.8-1.1) Sodium Level 133 mmol/L (136-145) Potassium Level 3.9 mmol/L (3.5-5.1) Chloride Level 98 mmol/L (98-107) Carbon Dioxide Level 29 mmol/L (21-32) Anion Gap 6 (6-14) Blood Urea Nitrogen 28 mg/dL (8-26) Creatinine 3.8 mg/dL (0.7-1.3) Estimated GFR (Cockcroft-Gault) 16.4 Glucose Level 105 mg/dL (70-99) Calcium Level 8.2 mg/dL (8.5-10.1) Other Left ventricle systolic function is bellow normal. The estimated Ejection Fraction is 40%. Tissue Doppler imaging reveals abnormal left ventricular diastolic dysfunction. The right ventricle is mildly to moderately dilated. The left atrium is moderately dilated. The right atrium is mildly dilated. The aortic valve is mildly to moderately calcified. Doppler and Color Flow revealed mild aortic regurgitation. Calculated aortic valve area is 1.8 cm2 with maximum pressure gradient of 31 mmHg and mean pressure gradient of 16 mmHg. Doppler and Color-flow revealed mild mitral regurgitation. Doppler and Color Flow revealed mild tricuspid regurgitation. There is no pulmonary hypertension. The PA pressure was estimated at 16 mmHg. The pulmonary valve is normal in structure and function. There is moderate left and righ sided pleural effusion. There is a small pericardial effusion. YUMIKO SCHAFER MD May 04, 2017 08:56
--- NOTE | 2017-05-04 09:13 | PDOC ---
PROGRESS NOTES Subjective Subjective doing well no complaints Objective Objective Vital Signs Date Time Temp Pulse Resp B/P (MAP) Pulse Ox O2 Delivery O2 Flow Rate FiO2 05/04/17 08:39 68 109/56 05/04/17 08:39 14 100 Nasal Cannula 2.0 05/04/17 08:00 98.7 98.7 Intake and Output 05/04/17 07:00 Intake Total 295 ml Output Total 0 ml Balance 295 ml Intake Oral 295 ml Output Urine Total 0 ml Physical Exam Abdomen: Normal bowel sounds, Soft Heart: Regular rate, Normal S1, Normal S2, Other (regular rate and rhythm S1- S2 2/6 systolic murmur. 1 to 2/6 diastolic murmur.) Extremities: No clubbing, Other (right leg has been amputated and there is a dressing over the stump from an area that is infected. The left leg is in a dressing that covers the leg and foot below the knee. The left hand and wrist are completely dressed.) General: Alert, Oriented X3, Cooperative HEENT: PERRLA Lungs: Normal air movement MUSCULOSKELETAL: Other Neck: No JVD Neuro: Normal speech Psych/Mental Status: Mental status NL Skin: Other (lt 4.5 fingers eschar) COMMENT dressing left thigh Assessment Assessment 1. Shifting of the distal femoral fragment. The patient had intramedullary nailing done earlier this month, gone for revision 04/28/17. 2. End-stage renal disease, on hemodialysis. 3. Insulin-dependent diabetes. 4. Right [id number] amputation. 5. Congestive heart failure, chronic, systolic.30% EJF 6. Chronic atrial fibrillation, on Coumadin. PLAN: d/c to [facility] today Hb 7,0 stable ORIF L femur fx POD #6 - ortho following hypotension - resolved - anemia a/c - post PRC and ffp Hgb 7.4 anticoagulation - INR2.9- last dose Warfarin 3mg 04/30 - pharmacy managing DM - BS 150 ESRD - hemodialysis sleep apnea - CPAP nightly at [facility] - cardiology following - asymptomatic Monitor for possible left lower extremity weakness.He wants to wait and see how he does after the pain medication. Problems: Comment Review of Relevant I have reviewed the following items maria teresa (where applicable) has been applied. Labs Laboratory Tests Test 05/03/17 10:59 05/03/17 14:27 05/03/17 21:24 05/04/17 05:45 Glucose (Fingerstick) 116 mg/dL (70-99) 100 mg/dL (70-99) 133 mg/dL (70-99) White Blood Count 6.4 x10^3/uL (4.0-11.0) Red Blood Count 2.46 x10^6/uL (4.30-5.70) Hemoglobin 7.0 g/dL (13.0-17.5) Hematocrit 21.9 % (39.0-53.0) Mean Corpuscular Volume 89 fL (79-100) Mean Corpuscular Hemoglobin 29 pg (25-35) Mean Corpuscular Hemoglobin Concent 32 g/dL (31-37) Red Cell Distribution Width 17.3 % (11.5-14.5) Platelet Count 323 x10^3/uL (140-400) Neutrophils (%) (Auto) 71 % (31-73) Lymphocytes (%) (Auto) 15 % (24-48) Monocytes (%) (Auto) 10 % (0-9) Eosinophils (%) (Auto) 4 % (0-3) Basophils (%) (Auto) 1 % (0-3) Neutrophils # (Auto) 4.6 x10^3uL (1.8-7.7) Lymphocytes # (Auto) 1.0 x10^3/uL (1.0-4.8) Monocytes # (Auto) 0.6 x10^3/uL (0.0-1.1) Eosinophils # (Auto) 0.2 x10^3/uL (0.0-0.7) Basophils # (Auto) 0.1 x10^3/uL (0.0-0.2) Prothrombin Time 26.8 SEC (11.7-14.0) Prothromb Time International Ratio 2.7 (0.8-1.1) Sodium Level 133 mmol/L (136-145) Potassium Level 3.9 mmol/L (3.5-5.1) Chloride Level 98 mmol/L (98-107) Carbon Dioxide Level 29 mmol/L (21-32) Anion Gap 6 (6-14) Blood Urea Nitrogen 28 mg/dL (8-26) Creatinine 3.8 mg/dL (0.7-1.3) Estimated GFR (Cockcroft-Gault) 16.4 Glucose Level 105 mg/dL (70-99) Calcium Level 8.2 mg/dL (8.5-10.1) Test 05/04/17 08:38 Glucose (Fingerstick) 92 mg/dL (70-99) Medications Current Medications Alteplase, Recombinant (Cathflo) 2 mg 1X ONCE INT CAT Last administered on t 06:29; Start 05/04/17 at 06:00; Stop 05/04/17 at 06:01; Status DC Vitals/I & O Vital Sign - Last 24 Hours 05/03/17 05/03/17 05/03/17 05/03/17 10:00 11:01 11:06 11:34 Temp 98.6 98.6 Pulse 62 71 64 Resp 29 20 B/P (MAP) 89/62 (71) 92/52 (65) 92/52 Pulse Ox 97 99 O2 Delivery Nasal Cannula Nasal Cannula Nasal Cannula O2 Flow Rate 6.0 6.0 6.0 05/03/17 05/03/17 05/03/17 05/03/17 12:08 12:24 13:00 14:00 Pulse 70 72 78 Resp 20 22 22 B/P (MAP) 109/56 (73) 89/68 (75) 107/52 (70) Pulse Ox 99 97 98 98 O2 Delivery Nasal Cannula Nasal Cannula Nasal Cannula Nasal Cannula O2 Flow Rate 6.0 6.0 6.0 6.0 05/03/17 05/03/17 05/03/17 05/03/17 14:07 15:08 16:00 16:15 Temp 98.7 98.7 Pulse 79 Resp 25 22 B/P (MAP) 114/57 (76) Pulse Ox 97 99 O2 Delivery Nasal Cannula Nasal Cannula Nasal Cannula O2 Flow Rate 2.0 6.0 2.0 05/03/17 05/03/17 05/03/17 05/03/17 16:28 16:47 16:58 17:05 Pulse 78 80 Resp 20 B/P (MAP) 114/57 115/55 (75) Pulse Ox 97 97 97 O2 Delivery Nasal Cannula Nasal Cannula Nasal Cannula O2 Flow Rate 2.0 2.0 6.0 05/03/17 05/03/17 05/03/17 05/03/17 18:03 19:00 20:00 20:00 Temp 98.1 98.1 Pulse 79 70 72 Resp 20 14 18 B/P (MAP) 106/55 (72) 98/53 (68) 97/50 (66) Pulse Ox 98 98 95 O2 Delivery Nasal Cannula Nasal Cannula Nasal Cannula Nasal Cannula O2 Flow Rate 6.0 2.0 2.0 2.0 05/03/17 05/03/17 05/03/17 05/03/17 21:00 21:21 22:00 23:00 Pulse 72 74 72 Resp 16 17 22 18 B/P (MAP) 97/44 (61) 111/70 (84) 105/50 (68) Pulse Ox 96 96 97 97 O2 Delivery Nasal Cannula Nasal Cannula Nasal Cannula Nasal Cannula O2 Flow Rate 2.0 2.0 2.0 2.0 05/03/17 05/03/17 05/03/17 05/04/17 23:59 23:59 23:59 01:00 Temp 98.5 98.5 Pulse 68 66 Resp 16 16 B/P (MAP) 104/53 (70) 97/51 (66) Pulse Ox 98 91 O2 Delivery BiPAP/CPAP BiPAP/CPAP O2 Flow Rate 2.0 2.0 2.0 2.0 05/04/17 05/04/17 05/04/17 05/04/17 01:21 02:00 03:00 04:00 Temp 98.7 98.7 Pulse 70 70 77 Resp 16 15 13 18 B/P (MAP) 101/56 (71) 100/55 (70) 96/56 (69) Pulse Ox 92 91 93 96 O2 Delivery BiPAP/CPAP BiPAP/CPAP BiPAP/CPAP Nasal Cannula O2 Flow Rate 2.0 2.0 2.0 2.0 05/04/17 05/04/17 05/04/17 05/04/17 04:00 04:02 05:00 05:02 Pulse 71 Resp 15 17 15 B/P (MAP) 109/57 (74) Pulse Ox 94 97 O2 Delivery Nasal Cannula Nasal Cannula Nasal Cannula Nasal Cannula O2 Flow Rate 2.0 2.0 2.0 2.0 05/04/17 05/04/17 05/04/17 05/04/17 06:00 07:00 08:00 08:00 Temp 98.7 98.7 Pulse 70 69 68 Resp 15 15 14 B/P (MAP) 113/61 (78) 102/55 (71) 109/56 (73) Pulse Ox 99 100 97 O2 Delivery Nasal Cannula Nasal Cannula BiPAP/CPAP Bi-pap O2 Flow Rate 2.0 2.0 05/04/17 05/04/17 05/04/17 08:00 08:39 08:39 Pulse 68 68 Resp 14 B/P (MAP) 109/56 (73) 109/56 Pulse Ox 100 O2 Delivery Nasal Cannula O2 Flow Rate 2.0 Intake and Output 05/03/17 05/03/17 05/04/17 15:00 23:00 07:00 Intake Total 145 ml 150 ml Output Total 0 ml Balance 145 ml 150 ml RADHA MEYER MD May 04, 2017 09:13
--- NOTE | 2017-05-04 09:46 | PDOC ---
PROGRESS NOTES Subjective Subjective No new complaints. Objective Objective Vital Signs Date Time Temp Pulse Resp B/P (MAP) Pulse Ox O2 Delivery O2 Flow Rate FiO2 05/04/17 09:00 76 14 138/65 (89) 90 Nasal Cannula 2.0 05/04/17 08:00 98.7 98.7 Intake and Output 05/04/17 07:00 Intake Total 295 ml Output Total 0 ml Balance 295 ml Intake Oral 295 ml Output Urine Total 0 ml Physical Exam Physical Exam He is supine in bed and receiving hemodialysis and wound vac in place to left foot and left lower extremity edema persists. Plan Plan of Care To keep him comfortable and to SNF or LTAC unit for continued care when medically stable. Comment Review of Relevant I have reviewed the following items maria teresa (where applicable) has been applied. Labs Laboratory Tests Test 05/02/17 12:51 05/02/17 17:38 05/02/17 21:11 05/03/17 06:10 Glucose (Fingerstick) 109 mg/dL (70-99) 204 mg/dL (70-99) 171 mg/dL (70-99) White Blood Count 6.7 x10^3/uL (4.0-11.0) Red Blood Count 2.52 x10^6/uL (4.30-5.70) Hemoglobin 7.3 g/dL (13.0-17.5) Hematocrit 22.5 % (39.0-53.0) Mean Corpuscular Volume 89 fL (79-100) Mean Corpuscular Hemoglobin 29 pg (25-35) Mean Corpuscular Hemoglobin Concent 33 g/dL (31-37) Red Cell Distribution Width 17.2 % (11.5-14.5) Platelet Count 275 x10^3/uL (140-400) Neutrophils (%) (Auto) 69 % (31-73) Lymphocytes (%) (Auto) 16 % (24-48) Monocytes (%) (Auto) 8 % (0-9) Eosinophils (%) (Auto) 6 % (0-3) Basophils (%) (Auto) 1 % (0-3) Neutrophils # (Auto) 4.6 x10^3uL (1.8-7.7) Lymphocytes # (Auto) 1.1 x10^3/uL (1.0-4.8) Monocytes # (Auto) 0.6 x10^3/uL (0.0-1.1) Eosinophils # (Auto) 0.4 x10^3/uL (0.0-0.7) Basophils # (Auto) 0.1 x10^3/uL (0.0-0.2) Prothrombin Time 27.7 SEC (11.7-14.0) Prothromb Time International Ratio 2.8 (0.8-1.1) Sodium Level 132 mmol/L (136-145) Potassium Level 4.4 mmol/L (3.5-5.1) Chloride Level 95 mmol/L (98-107) Carbon Dioxide Level 29 mmol/L (21-32) Anion Gap 8 (6-14) Blood Urea Nitrogen 52 mg/dL (8-26) Creatinine 6.0 mg/dL (0.7-1.3) Estimated GFR (Cockcroft-Gault) 9.7 Glucose Level 148 mg/dL (70-99) Calcium Level 8.2 mg/dL (8.5-10.1) Test 05/03/17 10:59 05/03/17 14:27 05/03/17 21:24 05/04/17 05:45 Glucose (Fingerstick) 116 mg/dL (70-99) 100 mg/dL (70-99) 133 mg/dL (70-99) White Blood Count 6.4 x10^3/uL (4.0-11.0) Red Blood Count 2.46 x10^6/uL (4.30-5.70) Hemoglobin 7.0 g/dL (13.0-17.5) Hematocrit 21.9 % (39.0-53.0) Mean Corpuscular Volume 89 fL (79-100) Mean Corpuscular Hemoglobin 29 pg (25-35) Mean Corpuscular Hemoglobin Concent 32 g/dL (31-37) Red Cell Distribution Width 17.3 % (11.5-14.5) Platelet Count 323 x10^3/uL (140-400) Neutrophils (%) (Auto) 71 % (31-73) Lymphocytes (%) (Auto) 15 % (24-48) Monocytes (%) (Auto) 10 % (0-9) Eosinophils (%) (Auto) 4 % (0-3) Basophils (%) (Auto) 1 % (0-3) Neutrophils # (Auto) 4.6 x10^3uL (1.8-7.7) Lymphocytes # (Auto) 1.0 x10^3/uL (1.0-4.8) Monocytes # (Auto) 0.6 x10^3/uL (0.0-1.1) Eosinophils # (Auto) 0.2 x10^3/uL (0.0-0.7) Basophils # (Auto) 0.1 x10^3/uL (0.0-0.2) Prothrombin Time 26.8 SEC (11.7-14.0) Prothromb Time International Ratio 2.7 (0.8-1.1) Sodium Level 133 mmol/L (136-145) Potassium Level 3.9 mmol/L (3.5-5.1) Chloride Level 98 mmol/L (98-107) Carbon Dioxide Level 29 mmol/L (21-32) Anion Gap 6 (6-14) Blood Urea Nitrogen 28 mg/dL (8-26) Creatinine 3.8 mg/dL (0.7-1.3) Estimated GFR (Cockcroft-Gault) 16.4 Glucose Level 105 mg/dL (70-99) Calcium Level 8.2 mg/dL (8.5-10.1) Test 05/04/17 08:38 Glucose (Fingerstick) 92 mg/dL (70-99) Laboratory Tests Test 05/03/17 10:59 05/03/17 14:27 05/03/17 21:24 05/04/17 05:45 Glucose (Fingerstick) 116 mg/dL (70-99) 100 mg/dL (70-99) 133 mg/dL (70-99) White Blood Count 6.4 x10^3/uL (4.0-11.0) Red Blood Count 2.46 x10^6/uL (4.30-5.70) Hemoglobin 7.0 g/dL (13.0-17.5) Hematocrit 21.9 % (39.0-53.0) Mean Corpuscular Volume 89 fL (79-100) Mean Corpuscular Hemoglobin 29 pg (25-35) Mean Corpuscular Hemoglobin Concent 32 g/dL (31-37) Red Cell Distribution Width 17.3 % (11.5-14.5) Platelet Count 323 x10^3/uL (140-400) Neutrophils (%) (Auto) 71 % (31-73) Lymphocytes (%) (Auto) 15 % (24-48) Monocytes (%) (Auto) 10 % (0-9) Eosinophils (%) (Auto) 4 % (0-3) Basophils (%) (Auto) 1 % (0-3) Neutrophils # (Auto) 4.6 x10^3uL (1.8-7.7) Lymphocytes # (Auto) 1.0 x10^3/uL (1.0-4.8) Monocytes # (Auto) 0.6 x10^3/uL (0.0-1.1) Eosinophils # (Auto) 0.2 x10^3/uL (0.0-0.7) Basophils # (Auto) 0.1 x10^3/uL (0.0-0.2) Prothrombin Time 26.8 SEC (11.7-14.0) Prothromb Time International Ratio 2.7 (0.8-1.1) Sodium Level 133 mmol/L (136-145) Potassium Level 3.9 mmol/L (3.5-5.1) Chloride Level 98 mmol/L (98-107) Carbon Dioxide Level 29 mmol/L (21-32) Anion Gap 6 (6-14) Blood Urea Nitrogen 28 mg/dL (8-26) Creatinine 3.8 mg/dL (0.7-1.3) Estimated GFR (Cockcroft-Gault) 16.4 Glucose Level 105 mg/dL (70-99) Calcium Level 8.2 mg/dL (8.5-10.1) Test 05/04/17 08:38 Glucose (Fingerstick) 92 mg/dL (70-99) Medications Current Medications Acetaminophen/ Hydrocodone Bitart (Lortab 10) 1 tab PRN Q6HRS PRN PO PAIN Last administered on 05/04/17 04:02; Start 04/28/17 at 18:45 Atorvastatin Calcium (Lipitor) 40 mg DAILY PO Last administered on 05/04/17 08 :41; Start 04/29/17 at 09:00 Clonazepam (KlonoPIN) 0.5 mg PRN Q6HRS PRN PO ANXIETY / AGITATION; Start 04/28 at 21:15 Famotidine (Pepcid) 20 mg DAILY PO ; Start 04/29/17 at 09:00; Stop 04/29/17 at 14:04; Status DC Ferrous Sulfate (Feosol) 325 mg DAILY PO Last administered on 05/01/17 09:25; Start 04/29/17 at 09:00; Stop 05/01/17 at 12:55; Status DC Vitamin B Complex/ Vitamin C (Sapphire-Sara) 1 tab DAILY PO Last administered on 08:39; Start 04/29/17 at 09:00 Lisinopril (Prinivil) 10 mg DAILY PO Last administered on 05/01/17 09:25; Start 04/29/17 at 09:00 Oxycodone HCl (OxyCONTIN) 10 mg BID PO Last administered on 05/04/17 08:39; Start 04/29/17 at 09:00 Senna/Docusate Sodium (Senna Plus) 2 tab PRN DAILY PRN PO CONSTIPATION 1ST CHOICE; Start 04/28/17 at 21:15 Trazodone HCl (Desyrel) 50 mg PRN QHS PRN PO INSOMNIA Last administered on 04/30 20:59; Start 04/28/17 at 21:15 Calcium Carbonate/ Glycine (Tums) 500 mg TIDAC PO Last administered on 08:38; Start 04/29/17 at 07:30 Citalopram Hydrobromide (CeleXA) 20 mg DAILY PO Last administered on 05/04/17 08:41; Start 04/29/17 at 09:00 Insulin Detemir (Levemir) 22 units QHS SQ ; Start 04/29/17 at 21:00; Stop at 21:00; Status DC Insulin Aspart (NovoLOG) 2 units TIDAC SQ ; Start 04/29/17 at 07:30; Stop at 07:30; Status DC Pioglitazone HCl (Actos) 45 mg DAILY PO Last administered on 05/04/17 08:40; Start 04/29/17 at 09:00 Insulin Detemir (Levemir) 12 units QHS SQ Last administered on 05/03/17 21:28 ; Start 04/29/17 at 21:00 Insulin Aspart (NovoLOG) 0-5 UNITS TIDWMEALS SQ ; Start 04/29/17 at 08:00; Stop 04/29/17 at 14:05; Status DC Dextrose (Dextrose 50%-Water Syringe) 12.5 gm PRN Q15MIN PRN IV SEE COMMENTS; Start 04/28/17 at 22:00; Stop 04/29/17 at 12:17; Status DC Clonazepam (KlonoPIN) 0.5 mg TID PO Last administered on 05/04/17 08:38; Start 04/28/17 at 22:00 Diphenoxylate HCl/ Atropine (Lomotil) 1 tab PRN QID PRN PO DIARRHEA; Start at 22:00 Midodrine (Proamatine) 5 mg BIDBFRMEAL PO Last administered on 05/04/17 08:39 ; Start 04/29/17 at 07:30 Polyethylene Glycol (miraLAX PACKET) 17 gm PRN DAILY PRN PO CONSTIPATION; Start 04/28/17 at 22:00 Warfarin Sodium (Coumadin) 3 mg DAILY16 PO Last administered on 05/03/17 16:47 ; Start 04/29/17 at 16:00 Darbepoetin Noel (Aranesp) 60 mcg Th SQ Last administered on 04/29/17 22:11; Start 04/29/17 at 21:00 Ondansetron HCl (Zofran) 4 mg PRN Q4HRS PRN IV NAUSEA; Start 04/28/17 at 22:00 Warfarin Sodium (Coumadin Per Physician) 1 each PRN DAILY PRN MC SEE COMMENTS Last administered on 05/03/17 09:57; Start 04/28/17 at 22:15 Sodium Chloride 1,000 ml @ 1,000 mls/hr Q1H PRN IV hypotension; Start at 08:39; Stop 04/29/17 at 14:38; Status DC Albumin Human 200 ml @ 200 mls/hr 1X PRN PRN IV Hypotension; Start 04/29/17 at 08:45; Stop 04/29/17 at 14:44; Status DC Sodium Chloride 1,000 ml @ 400 mls/hr Q2H30M PRN IV PATENCY; Start 04/29/17 at 08:39; Stop 04/29/17 at 20:38; Status DC Info (PHARMACY MONITORING -- do not chart) 1 each PRN DAILY PRN MC SEE COMMENTS ; Start 04/29/17 at 08:45; Status UNV Info (PHARMACY MONITORING -- do not chart) 1 each PRN DAILY PRN MC SEE COMMENTS ; Start 04/29/17 at 08:45 Insulin Aspart (NovoLOG) 0-7 UNITS TIDWMEALS SQ Last administered on 05/02/17 17:40; Start 04/29/17 at 12:00 Dextrose (Dextrose 50%-Water Syringe) 12.5 gm PRN Q15MIN PRN IV SEE COMMENTS; Start 04/29/17 at 10:00 Darbepoetin Noel (Aranesp) 60 mcg WEEKLYHS SQ ; Start 04/29/17 at 21:00; Stop 04/29/17 at 21:00; Status DC Famotidine (Pepcid) 20 mg Q48H PO Last administered on 05/03/17 14:23; Start 05/01/17 at 09:00 Fentanyl Citrate (Fentanyl 2ml Vial) 12.5 mcg PRN Q3HRS PRN IM PAIN; Start at 14:15; Stop 04/29/17 at 14:34; Status DC Fentanyl Citrate (Fentanyl 2ml Vial) 12.5 mcg PRN Q3HRS PRN IV PAIN Last administered on 05/03/17 16:28; Start 04/29/17 at 14:45 Propofol 20 ml @ As Directed STK-MED ONCE IV ; Start 04/29/17 at 15:45; Stop 04/29/17 at 15:46; Status DC Lidocaine HCl (Lidocaine Pf 2% Vial) 5 ml STK-MED ONCE .ROUTE ; Start 04/29/17 at 15:45; Stop 04/29/17 at 15:46; Status DC Succinylcholine Chloride (Anectine) 200 mg STK-MED ONCE .ROUTE ; Start at 15:46; Stop 04/29/17 at 15:47; Status DC Rocuronium [place] (Zemuron) 50 mg STK-MED ONCE .ROUTE ; Start 04/29/17 at 15: 46; Stop 04/29/17 at 15:47; Status DC Fentanyl Citrate (Fentanyl 2ml Vial) 100 mcg STK-MED ONCE .ROUTE ; Start at 15:46; Stop 04/29/17 at 15:47; Status DC Cefazolin Sodium/ Dextrose 50 ml @ As Directed STK-MED ONCE IV ; Start at 16:46; Stop 04/29/17 at 16:47; Status DC Ephedrine Sulfate (Akovaz) 50 mg STK-MED ONCE .ROUTE ; Start 04/29/17 at 16:47 ; Stop 04/29/17 at 16:48; Status DC Rocuronium [place]is (Zemuron) 50 mg STK-MED ONCE .ROUTE ; Start 04/29/17 at 17: 23; Stop 04/29/17 at 17:24; Status DC Fentanyl Citrate (Fentanyl 2ml Vial) 100 mcg STK-MED ONCE .ROUTE ; Start at 17:23; Stop 04/29/17 at 17:24; Status DC Ondansetron HCl (Zofran) 4 mg STK-MED ONCE .ROUTE ; Start 04/29/17 at 17:32; Stop 04/29/17 at 17:33; Status DC Neostigmine Methylsulfate (Bloxiverz) 10 mg STK-MED ONCE .ROUTE ; Start at 17:32; Stop 04/29/17 at 17:33; Status DC Glycopyrrolate (Robinul) 1 mg STK-MED ONCE .ROUTE ; Start 04/29/17 at 17:33; Stop 04/29/17 at 17:34; Status DC Albumin Human 500 ml @ As Directed STK-MED ONCE IV ; Start 04/29/17 at 17:50; Stop 04/29/17 at 17:51; Status DC Vasopressin (Vasostrict) 20 unit STK-MED ONCE .ROUTE ; Start 04/29/17 at 17:53 ; Stop 04/29/17 at 17:54; Status DC Sodium Chloride (Sodium Chloride) 50 ml STK-MED ONCE IJ ; Start 04/29/17 at 17: 54; Stop 04/29/17 at 17:55; Status DC Phenylephrine HCl 80 mg/Sodium Chloride 258 ml @ 0 mls/hr CONT PRN IV SEE I/O RECORD Last administered on 05/02/17t 21:09; Start 04/29/17 at 20:30 Fentanyl Citrate (Fentanyl 2ml Vial) 25 mcg PRN Q5MIN PRN IV Acute Pain; Start 04/29/17 at 20:30; Stop 04/30/17 at 20:29; Status DC Fentanyl Citrate (Fentanyl 2ml Vial) 50 mcg PRN Q5MIN PRN IV Acute Pain; Start 04/29/17 at 20:30; Stop 04/30/17 at 20:29; Status DC Morphine Sulfate 2 mg PRN Q10MIN PRN IV Mild Pain; Start 04/29/17 at 20:30; Stop 04/30/17 at 20:29; Status DC Hydromorphone HCl (Dilaudid) 0.2 mg PRN Q10MIN PRN IV Mild pain; Start at 20:30; Stop 04/30/17 at 20:29; Status DC Ondansetron HCl (Zofran) 4 mg PRN Q6HRS PRN IV Nausea, 1st Choice; Start 04/29 at 20:30; Stop 04/30/17 at 20:29; Status DC Sodium Chloride 1,000 ml @ 1,000 mls/hr Q1H PRN IV hypotension; Start 04/30/17 at 08:33; Stop 04/30/17 at 14:32; Status DC Diphenhydramine HCl (Benadryl) 25 mg 1X PRN PRN IV ITCHING; Start 04/30/17 at 08:45; Stop 05/01/17 at 08:44; Status DC Diphenhydramine HCl (Benadryl) 25 mg 1X PRN PRN IV ITCHING; Start 04/30/17 at 08:45; Stop 05/01/17 at 08:44; Status DC Sodium Chloride 1,000 ml @ 400 mls/hr Q2H30M PRN IV PATENCY; Start 04/30/17 at 08:33; Stop 04/30/17 at 20:32; Status DC Info (PHARMACY MONITORING -- do not chart) 1 each PRN DAILY PRN MC SEE COMMENTS ; Start 04/30/17 at 08:45; Status UNV Sodium Chloride 1,000 ml @ 1,000 mls/hr Q1H PRN IV hypotension; Start 05/03/17 at 08:15; Stop 05/03/17 at 14:14; Status DC Sodium Chloride 1,000 ml @ 400 mls/hr Q2H30M PRN IV PATENCY; Start 05/03/17 at 08:15; Stop 05/03/17 at 20:14; Status DC Info (PHARMACY MONITORING -- do not chart) 1 each PRN DAILY PRN MC SEE COMMENTS ; Start 05/03/17 at 08:15; Status UNV Info (PHARMACY MONITORING -- do not chart) 1 each PRN DAILY PRN MC SEE COMMENTS ; Start 05/03/17 at 08:15; Status UNV Alteplase, Recombinant (Cathflo) 2 mg 1X ONCE INT CAT Last administered on t 06:29; Start 05/04/17 at 06:00; Stop 05/04/17 at 06:01; Status DC Active Scripts Active Hydrocodone-Apap 10-325 (Hydrocodone Bit/Acetaminophen) 1 Each Tablet 1 Tab PO PRN Q6HRS PRN 30 Days Senna-Time S Tablet (Sennosides/Docusate Sodium) 1 Each Tablet 2 Tab PO PRN DAILY PRN Reported Aranesp Syringe (Darbepoetin Noel In Polysorbat) 60 Mcg/0.3 Ml Disp.syrin 60 Mcg SQ WE@2100 Warfarin Sodium 3 Mg Tablet 1 Tab PO DAILY Midodrine Hcl 5 Mg Tablet 5 Mg PO BID at 10 and 18 Clonazepam 0.5 Mg Tablet 1 Tab PO TID [micro guard2% powd] TOP [moriah] Miralax (Polyethylene Glycol 3350) 17 Gm Powd.pack 1 Packet PO DAILY PRN Actos (Pioglitazone Hcl) 45 Mg Tablet 1 Tab PO DAILY Ondansetron HCl 4 mg/2 ml Syr (Ondansetron HCl/Pf) 4 Mg/2 Ml Syringe 4 Mg IV Q4HRS PRN Lomotil Tablet (Diphenoxylate Hcl/Atropine) 1 Each Tablet 1 Tab PO QID PRN Humalog (Insulin Lispro) 100 Unit/1 Ml Cartridge 0 SQ TIDAC sliding scale Lisinopril 10 Mg Tablet 10 Mg PO DAILY Oxycontin (Oxycodone HCl) 10 Mg Tab.er.12h 10 Mg PO BID Nephro-Sara Tablet (Folic Acid/Vitamin B Comp W-C) 0.8 Mg Tablet 0.8 Mg PO DAILY Ferrous Sulfate 325 Mg Tablet 325 Mg PO DAILY Famotidine 20 Mg Tablet 20 Mg PO DAILY Clonazepam 0.5 Mg Tablet 0.5 Mg PO Q6HRS PRN Escitalopram Oxalate 10 Mg Tablet 10 Mg PO DAILY Lantus Solostar (Insulin Glargine,Hum.rec.anlog) 100 Unit/1 Ml Insuln.pen 12 Units SQ QHS Trazodone Hcl 50 Mg Tablet 50 Mg PO PRN QHS PRN Actos (Pioglitazone Hcl) 45 Mg Tablet 1 Tab PO DAILY Tums (Calcium Carbonate) 300 Mg Tab.chew 300 Mg PO TIDAC Atorvastatin Calcium 20 Mg Tablet 40 Mg PO DAILY Vitals/I & O Vital Sign - Last 24 Hours 05/03/17 05/03/17 05/03/17 05/03/17 10:00 11:01 11:06 11:34 Temp 98.6 98.6 Pulse 62 71 64 Resp 29 20 B/P (MAP) 89/62 (71) 92/52 (65) 92/52 Pulse Ox 97 99 O2 Delivery Nasal Cannula Nasal Cannula Nasal Cannula O2 Flow Rate 6.0 6.0 6.0 05/03/17 05/03/17 05/03/17 05/03/17 12:08 12:24 13:00 14:00 Pulse 70 72 78 Resp 20 22 22 B/P (MAP) 109/56 (73) 89/68 (75) 107/52 (70) Pulse Ox 99 97 98 98 O2 Delivery Nasal Cannula Nasal Cannula Nasal Cannula Nasal Cannula O2 Flow Rate 6.0 6.0 6.0 6.0 05/03/17 05/03/17 05/03/17 05/03/17 14:07 15:08 16:00 16:15 Temp 98.7 98.7 Pulse 79 Resp 25 22 B/P (MAP) 114/57 (76) Pulse Ox 97 99 O2 Delivery Nasal Cannula Nasal Cannula Nasal Cannula O2 Flow Rate 2.0 6.0 2.0 05/03/17 05/03/17 05/03/17 05/03/17 16:28 16:47 16:58 17:05 Pulse 78 80 Resp 20 B/P (MAP) 114/57 115/55 (75) Pulse Ox 97 97 97 O2 Delivery Nasal Cannula Nasal Cannula Nasal Cannula O2 Flow Rate 2.0 2.0 6.0 05/03/17 05/03/17 05/03/17 05/03/17 18:03 19:00 20:00 20:00 Temp 98.1 98.1 Pulse 79 70 72 Resp 20 14 18 B/P (MAP) 106/55 (72) 98/53 (68) 97/50 (66) Pulse Ox 98 98 95 O2 Delivery Nasal Cannula Nasal Cannula Nasal Cannula Nasal Cannula O2 Flow Rate 6.0 2.0 2.0 2.0 05/03/17 05/03/17 05/03/17 05/03/17 21:00 21:21 22:00 23:00 Pulse 72 74 72 Resp 16 17 22 18 B/P (MAP) 97/44 (61) 111/70 (84) 105/50 (68) Pulse Ox 96 96 97 97 O2 Delivery Nasal Cannula Nasal Cannula Nasal Cannula Nasal Cannula O2 Flow Rate 2.0 2.0 2.0 2.0 05/03/17 05/03/17 05/03/17 05/04/17 23:59 23:59 23:59 01:00 Temp 98.5 98.5 Pulse 68 66 Resp 16 16 B/P (MAP) 104/53 (70) 97/51 (66) Pulse Ox 98 91 O2 Delivery BiPAP/CPAP BiPAP/CPAP O2 Flow Rate 2.0 2.0 2.0 2.0 05/04/17 05/04/17 05/04/17 05/04/17 01:21 02:00 03:00 04:00 Temp 98.7 98.7 Pulse 70 70 77 Resp 16 15 13 18 B/P (MAP) 101/56 (71) 100/55 (70) 96/56 (69) Pulse Ox 92 91 93 96 O2 Delivery BiPAP/CPAP BiPAP/CPAP BiPAP/CPAP Nasal Cannula O2 Flow Rate 2.0 2.0 2.0 2.0 05/04/17 05/04/17 05/04/17 05/04/17 04:00 04:02 05:00 05:02 Pulse 71 Resp 15 17 15 B/P (MAP) 109/57 (74) Pulse Ox 94 97 O2 Delivery Nasal Cannula Nasal Cannula Nasal Cannula Nasal Cannula O2 Flow Rate 2.0 2.0 2.0 2.0 05/04/17 05/04/17 05/04/17 05/04/17 06:00 07:00 08:00 08:00 Temp 98.7 98.7 Pulse 70 69 68 Resp 15 15 14 B/P (MAP) 113/61 (78) 102/55 (71) 109/56 (73) Pulse Ox 99 100 97 O2 Delivery Nasal Cannula Nasal Cannula BiPAP/CPAP Bi-pap O2 Flow Rate 2.0 2.0 05/04/17 05/04/17 05/04/17 05/04/17 08:00 08:39 08:39 09:00 Pulse 68 68 76 Resp 14 14 B/P (MAP) 109/56 (73) 109/56 138/65 (89) Pulse Ox 100 90 O2 Delivery Nasal Cannula Nasal Cannula O2 Flow Rate 2.0 2.0 Intake and Output 05/03/17 05/03/17 05/04/17 15:00 23:00 07:00 Intake Total 145 ml 150 ml Output Total 0 ml Balance 145 ml 150 ml MORRIS HARMAN MD May 04, 2017 09:46
--- NOTE | 2017-05-04 10:12 | PDOC ---
PROGRESS NOTES Subjective Subjective No acute events overnight. Patients vitals continue to be stable without need for pressors. Denies any chest pain or other cardiac symptoms today. Plan to be d/c from hospital today to specialty care facility. Will receive HD at facility. No additional concerns at this time. Objective Objective Vital Signs Date Time Temp Pulse Resp B/P (MAP) Pulse Ox O2 Delivery O2 Flow Rate FiO2 05/04/17 09:00 76 14 138/65 (89) 90 Nasal Cannula 2.0 05/04/17 08:00 98.7 98.7 Intake and Output 05/04/17 07:00 Intake Total 295 ml Output Total 0 ml Balance 295 ml Intake Oral 295 ml Output Urine Total 0 ml Physical Exam COMMENT Alert, Awake, Oriented In No Acute Distress, Currently undergoing hemodialysis Lungs CTAB Cardiac: No changes in cardiac exam. Still some muffling of heart sounds. S1-S2 , 2/6 systolic murmur and 2/6 diastolic murmur. No changes in edema Plan Plan of Care Patient currently compensated cardiac-vazquez. Vitals stable without need for pressors. Continue cardiac telemetry and Coumadin for chronic A Fib. Cardiac echo showing EF 40%, a small pericardial effusion, b/l pleural effusion , and L chronic systolic/diastolic dysfunction. Will make no additional changes to medication at this time as patient is stable and compensated. Otherwise, will continue with medical treatment without any further invasive surgeries. Plan to continue with dialysis until after New Years. At that point will reassess situation, but discussed in length with patient about d/c HD after the New Years and proceeding with comfort measures only. Patient and family in agreement with plan. Agree with plan to d/c patient to either SNF or LTAC today. Comment Review of Relevant I have reviewed the following items maria teresa (where applicable) has been applied. Labs Laboratory Tests Test 05/02/17 12:51 05/02/17 17:38 05/02/17 21:11 05/03/17 06:10 Glucose (Fingerstick) 109 mg/dL (70-99) 204 mg/dL (70-99) 171 mg/dL (70-99) White Blood Count 6.7 x10^3/uL (4.0-11.0) Red Blood Count 2.52 x10^6/uL (4.30-5.70) Hemoglobin 7.3 g/dL (13.0-17.5) Hematocrit 22.5 % (39.0-53.0) Mean Corpuscular Volume 89 fL (79-100) Mean Corpuscular Hemoglobin 29 pg (25-35) Mean Corpuscular Hemoglobin Concent 33 g/dL (31-37) Red Cell Distribution Width 17.2 % (11.5-14.5) Platelet Count 275 x10^3/uL (140-400) Neutrophils (%) (Auto) 69 % (31-73) Lymphocytes (%) (Auto) 16 % (24-48) Monocytes (%) (Auto) 8 % (0-9) Eosinophils (%) (Auto) 6 % (0-3) Basophils (%) (Auto) 1 % (0-3) Neutrophils # (Auto) 4.6 x10^3uL (1.8-7.7) Lymphocytes # (Auto) 1.1 x10^3/uL (1.0-4.8) Monocytes # (Auto) 0.6 x10^3/uL (0.0-1.1) Eosinophils # (Auto) 0.4 x10^3/uL (0.0-0.7) Basophils # (Auto) 0.1 x10^3/uL (0.0-0.2) Prothrombin Time 27.7 SEC (11.7-14.0) Prothromb Time International Ratio 2.8 (0.8-1.1) Sodium Level 132 mmol/L (136-145) Potassium Level 4.4 mmol/L (3.5-5.1) Chloride Level 95 mmol/L (98-107) Carbon Dioxide Level 29 mmol/L (21-32) Anion Gap 8 (6-14) Blood Urea Nitrogen 52 mg/dL (8-26) Creatinine 6.0 mg/dL (0.7-1.3) Estimated GFR (Cockcroft-Gault) 9.7 Glucose Level 148 mg/dL (70-99) Calcium Level 8.2 mg/dL (8.5-10.1) Test 05/03/17 10:59 05/03/17 14:27 05/03/17 21:24 05/04/17 05:45 Glucose (Fingerstick) 116 mg/dL (70-99) 100 mg/dL (70-99) 133 mg/dL (70-99) White Blood Count 6.4 x10^3/uL (4.0-11.0) Red Blood Count 2.46 x10^6/uL (4.30-5.70) Hemoglobin 7.0 g/dL (13.0-17.5) Hematocrit 21.9 % (39.0-53.0) Mean Corpuscular Volume 89 fL (79-100) Mean Corpuscular Hemoglobin 29 pg (25-35) Mean Corpuscular Hemoglobin Concent 32 g/dL (31-37) Red Cell Distribution Width 17.3 % (11.5-14.5) Platelet Count 323 x10^3/uL (140-400) Neutrophils (%) (Auto) 71 % (31-73) Lymphocytes (%) (Auto) 15 % (24-48) Monocytes (%) (Auto) 10 % (0-9) Eosinophils (%) (Auto) 4 % (0-3) Basophils (%) (Auto) 1 % (0-3) Neutrophils # (Auto) 4.6 x10^3uL (1.8-7.7) Lymphocytes # (Auto) 1.0 x10^3/uL (1.0-4.8) Monocytes # (Auto) 0.6 x10^3/uL (0.0-1.1) Eosinophils # (Auto) 0.2 x10^3/uL (0.0-0.7) Basophils # (Auto) 0.1 x10^3/uL (0.0-0.2) Prothrombin Time 26.8 SEC (11.7-14.0) Prothromb Time International Ratio 2.7 (0.8-1.1) Sodium Level 133 mmol/L (136-145) Potassium Level 3.9 mmol/L (3.5-5.1) Chloride Level 98 mmol/L (98-107) Carbon Dioxide Level 29 mmol/L (21-32) Anion Gap 6 (6-14) Blood Urea Nitrogen 28 mg/dL (8-26) Creatinine 3.8 mg/dL (0.7-1.3) Estimated GFR (Cockcroft-Gault) 16.4 Glucose Level 105 mg/dL (70-99) Calcium Level 8.2 mg/dL (8.5-10.1) Test 05/04/17 08:38 Glucose (Fingerstick) 92 mg/dL (70-99) Laboratory Tests Test 05/03/17 10:59 05/03/17 14:27 05/03/17 21:24 05/04/17 05:45 Glucose (Fingerstick) 116 mg/dL (70-99) 100 mg/dL (70-99) 133 mg/dL (70-99) White Blood Count 6.4 x10^3/uL (4.0-11.0) Red Blood Count 2.46 x10^6/uL (4.30-5.70) Hemoglobin 7.0 g/dL (13.0-17.5) Hematocrit 21.9 % (39.0-53.0) Mean Corpuscular Volume 89 fL (79-100) Mean Corpuscular Hemoglobin 29 pg (25-35) Mean Corpuscular Hemoglobin Concent 32 g/dL (31-37) Red Cell Distribution Width 17.3 % (11.5-14.5) Platelet Count 323 x10^3/uL (140-400) Neutrophils (%) (Auto) 71 % (31-73) Lymphocytes (%) (Auto) 15 % (24-48) Monocytes (%) (Auto) 10 % (0-9) Eosinophils (%) (Auto) 4 % (0-3) Basophils (%) (Auto) 1 % (0-3) Neutrophils # (Auto) 4.6 x10^3uL (1.8-7.7) Lymphocytes # (Auto) 1.0 x10^3/uL (1.0-4.8) Monocytes # (Auto) 0.6 x10^3/uL (0.0-1.1) Eosinophils # (Auto) 0.2 x10^3/uL (0.0-0.7) Basophils # (Auto) 0.1 x10^3/uL (0.0-0.2) Prothrombin Time 26.8 SEC (11.7-14.0) Prothromb Time International Ratio 2.7 (0.8-1.1) Sodium Level 133 mmol/L (136-145) Potassium Level 3.9 mmol/L (3.5-5.1) Chloride Level 98 mmol/L (98-107) Carbon Dioxide Level 29 mmol/L (21-32) Anion Gap 6 (6-14) Blood Urea Nitrogen 28 mg/dL (8-26) Creatinine 3.8 mg/dL (0.7-1.3) Estimated GFR (Cockcroft-Gault) 16.4 Glucose Level 105 mg/dL (70-99) Calcium Level 8.2 mg/dL (8.5-10.1) Test 05/04/17 08:38 Glucose (Fingerstick) 92 mg/dL (70-99) Medications Current Medications Acetaminophen/ Hydrocodone Bitart (Lortab 10/325) 1 tab PRN Q6HRS PRN PO PAIN Last administered on 05/04/17 04:02; Start 04/28/17 at 18:45 Atorvastatin Calcium (Lipitor) 40 mg DAILY PO Last administered on 05/04/17 08 :41; Start 04/29/17 at 09:00 Clonazepam (KlonoPIN) 0.5 mg PRN Q6HRS PRN PO ANXIETY / AGITATION; Start 04/28 at 21:15 Famotidine (Pepcid) 20 mg DAILY PO ; Start 04/29/17 at 09:00; Stop 04/29/17 at 14:04; Status DC Ferrous Sulfate (Feosol) 325 mg DAILY PO Last administered on 05/01/17 09:25; Start 04/29/17 at 09:00; Stop 05/01/17 at 12:55; Status DC Vitamin B Complex/ Vitamin C (Sapphire-Sara) 1 tab DAILY PO Last administered on 08:39; Start 04/29/17 at 09:00 Lisinopril (Prinivil) 10 mg DAILY PO Last administered on 05/01/17 09:25; Start 04/29/17 at 09:00 Oxycodone HCl (OxyCONTIN) 10 mg BID PO Last administered on 05/04/17 08:39; Start 04/29/17 at 09:00 Senna/Docusate Sodium (Senna Plus) 2 tab PRN DAILY PRN PO CONSTIPATION 1ST CHOICE; Start 04/28/17 at 21:15 Trazodone HCl (Desyrel) 50 mg PRN QHS PRN PO INSOMNIA Last administered on 04/30 20:59; Start 04/28/17 at 21:15 Calcium Carbonate/ Glycine (Tums) 500 mg TIDAC PO Last administered on 08:38; Start 04/29/17 at 07:30 Citalopram Hydrobromide (CeleXA) 20 mg DAILY PO Last administered on 05/04/17 08:41; Start 04/29/17 at 09:00 Insulin Detemir (Levemir) 22 units QHS SQ ; Start 04/29/17 at 21:00; Stop at 21:00; Status DC Insulin Aspart (NovoLOG) 2 units TIDAC SQ ; Start 04/29/17 at 07:30; Stop at 07:30; Status DC Pioglitazone HCl (Actos) 45 mg DAILY PO Last administered on 05/04/17 08:40; Start 04/29/17 at 09:00 Insulin Detemir (Levemir) 12 units QHS SQ Last administered on 05/03/17 21:28 ; Start 04/29/17 at 21:00 Insulin Aspart (NovoLOG) 0-5 UNITS TIDWMEALS SQ ; Start 04/29/17 at 08:00; Stop 04/29/17 at 14:05; Status DC Dextrose (Dextrose 50%-Water Syringe) 12.5 gm PRN Q15MIN PRN IV SEE COMMENTS; Start 04/28/17 at 22:00; Stop 04/29/17 at 12:17; Status DC Clonazepam (KlonoPIN) 0.5 mg TID PO Last administered on 05/04/17 08:38; Start 04/28/17 at 22:00 Diphenoxylate HCl/ Atropine (Lomotil) 1 tab PRN QID PRN PO DIARRHEA; Start at 22:00 Midodrine (Proamatine) 5 mg BIDBFRMEAL PO Last administered on 05/04/17 08:39 ; Start 04/29/17 at 07:30 Polyethylene Glycol (miraLAX PACKET) 17 gm PRN DAILY PRN PO CONSTIPATION; Start 04/28/17 at 22:00 Warfarin Sodium (Coumadin) 3 mg DAILY16 PO Last administered on 05/03/17 16:47 ; Start 04/29/17 at 16:00 Darbepoetin Noel (Aranesp) 60 mcg Th SQ Last administered on 04/29/17 22:11; Start 04/29/17 at 21:00 Ondansetron HCl (Zofran) 4 mg PRN Q4HRS PRN IV NAUSEA; Start 04/28/17 at 22:00 Warfarin Sodium (Coumadin Per Physician) 1 each PRN DAILY PRN MC SEE COMMENTS Last administered on 05/03/17 09:57; Start 04/28/17 at 22:15 Sodium Chloride 1,000 ml @ 1,000 mls/hr Q1H PRN IV hypotension; Start at 08:39; Stop 04/29/17 at 14:38; Status DC Albumin Human 200 ml @ 200 mls/hr 1X PRN PRN IV Hypotension; Start 04/29/17 at 08:45; Stop 04/29/17 at 14:44; Status DC Sodium Chloride 1,000 ml @ 400 mls/hr Q2H30M PRN IV PATENCY; Start 04/29/17 at 08:39; Stop 04/29/17 at 20:38; Status DC Info (PHARMACY MONITORING -- do not chart) 1 each PRN DAILY PRN MC SEE COMMENTS ; Start 04/29/17 at 08:45; Status UNV Info (PHARMACY MONITORING -- do not chart) 1 each PRN DAILY PRN MC SEE COMMENTS ; Start 04/29/17 at 08:45 Insulin Aspart (NovoLOG) 0-7 UNITS TIDWMEALS SQ Last administered on 05/02/17 17:40; Start 04/29/17 at 12:00 Dextrose (Dextrose 50%-Water Syringe) 12.5 gm PRN Q15MIN PRN IV SEE COMMENTS; Start 04/29/17 at 10:00 Darbepoetin Noel (Aranesp) 60 mcg WEEKLYHS SQ ; Start 04/29/17 at 21:00; Stop 04/29/17 at 21:00; Status DC Famotidine (Pepcid) 20 mg Q48H PO Last administered on 05/03/17 14:23; Start 05/01/17 at 09:00 Fentanyl Citrate (Fentanyl 2ml Vial) 12.5 mcg PRN Q3HRS PRN IM PAIN; Start at 14:15; Stop 04/29/17 at 14:34; Status DC Fentanyl Citrate (Fentanyl 2ml Vial) 12.5 mcg PRN Q3HRS PRN IV PAIN Last administered on 05/03/17t 16:28; Start 04/29/17 at 14:45 Propofol 20 ml @ As Directed STK-MED ONCE IV ; Start 04/29/17 at 15:45; Stop 04/29/17 at 15:46; Status DC Lidocaine HCl (Lidocaine Pf 2% Vial) 5 ml STK-MED ONCE .ROUTE ; Start 04/29/17 at 15:45; Stop 04/29/17 at 15:46; Status DC Succinylcholine Chloride (Anectine) 200 mg STK-MED ONCE .ROUTE ; Start at 15:46; Stop 04/29/17 at 15:47; Status DC Rocuronium Gilbert (Zemuron) 50 mg STK-MED ONCE .ROUTE ; Start 04/29/17 at 15: 46; Stop 04/29/17 at 15:47; Status DC Fentanyl Citrate (Fentanyl 2ml Vial) 100 mcg STK-MED ONCE .ROUTE ; Start at 15:46; Stop 04/29/17 at 15:47; Status DC Cefazolin Sodium/ Dextrose 50 ml @ As Directed STK-MED ONCE IV ; Start at 16:46; Stop 04/29/17 at 16:47; Status DC Ephedrine Sulfate (Akovaz) 50 mg STK-MED ONCE .ROUTE ; Start 04/29/17 at 16:47 ; Stop 04/29/17 at 16:48; Status DC Rocuronium Gilbert (Zemuron) 50 mg STK-MED ONCE .ROUTE ; Start 04/29/17 at 17: 23; Stop 04/29/17 at 17:24; Status DC Fentanyl Citrate (Fentanyl 2ml Vial) 100 mcg STK-MED ONCE .ROUTE ; Start at 17:23; Stop 04/29/17 at 17:24; Status DC Ondansetron HCl (Zofran) 4 mg STK-MED ONCE .ROUTE ; Start 04/29/17 at 17:32; Stop 04/29/17 at 17:33; Status DC Neostigmine Methylsulfate (Bloxiverz) 10 mg STK-MED ONCE .ROUTE ; Start at 17:32; Stop 04/29/17 at 17:33; Status DC Glycopyrrolate (Robinul) 1 mg STK-MED ONCE .ROUTE ; Start 04/29/17 at 17:33; Stop 04/29/17 at 17:34; Status DC Albumin Human 500 ml @ As Directed STK-MED ONCE IV ; Start 04/29/17 at 17:50; Stop 04/29/17 at 17:51; Status DC Vasopressin (Vasostrict) 20 unit STK-MED ONCE .ROUTE ; Start 04/29/17 at 17:53 ; Stop 04/29/17 at 17:54; Status DC Sodium Chloride (Sodium Chloride) 50 ml STK-MED ONCE IJ ; Start 04/29/17 at 17: 54; Stop 04/29/17 at 17:55; Status DC Phenylephrine HCl 80 mg/Sodium Chloride 258 ml @ 0 mls/hr CONT PRN IV SEE I/O RECORD Last administered on 05/02/17t 21:09; Start 04/29/17 at 20:30 Fentanyl Citrate (Fentanyl 2ml Vial) 25 mcg PRN Q5MIN PRN IV Acute Pain; Start 04/29/17 at 20:30; Stop 04/30/17 at 20:29; Status DC Fentanyl Citrate (Fentanyl 2ml Vial) 50 mcg PRN Q5MIN PRN IV Acute Pain; Start 04/29/17 at 20:30; Stop 04/30/17 at 20:29; Status DC Morphine Sulfate 2 mg PRN Q10MIN PRN IV Mild Pain; Start 04/29/17 at 20:30; Stop 04/30/17 at 20:29; Status DC Hydromorphone HCl (Dilaudid) 0.2 mg PRN Q10MIN PRN IV Mild pain; Start at 20:30; Stop 04/30/17 at 20:29; Status DC Ondansetron HCl (Zofran) 4 mg PRN Q6HRS PRN IV Nausea, 1st Choice; Start 04/29 at 20:30; Stop 04/30/17 at 20:29; Status DC Sodium Chloride 1,000 ml @ 1,000 mls/hr Q1H PRN IV hypotension; Start 04/30/17 at 08:33; Stop 04/30/17 at 14:32; Status DC Diphenhydramine HCl (Benadryl) 25 mg 1X PRN PRN IV ITCHING; Start 04/30/17 at 08:45; Stop 05/01/17 at 08:44; Status DC Diphenhydramine HCl (Benadryl) 25 mg 1X PRN PRN IV ITCHING; Start 04/30/17 at 08:45; Stop 05/01/17 at 08:44; Status DC Sodium Chloride 1,000 ml @ 400 mls/hr Q2H30M PRN IV PATENCY; Start 04/30/17 at 08:33; Stop 04/30/17 at 20:32; Status DC Info (PHARMACY MONITORING -- do not chart) 1 each PRN DAILY PRN MC SEE COMMENTS ; Start 04/30/17 at 08:45; Status UNV Sodium Chloride 1,000 ml @ 1,000 mls/hr Q1H PRN IV hypotension; Start 05/03/17 at 08:15; Stop 05/03/17 at 14:14; Status DC Sodium Chloride 1,000 ml @ 400 mls/hr Q2H30M PRN IV PATENCY; Start 05/03/17 at 08:15; Stop 05/03/17 at 20:14; Status DC Info (PHARMACY MONITORING -- do not chart) 1 each PRN DAILY PRN MC SEE COMMENTS ; Start 05/03/17 at 08:15; Status UNV Info (PHARMACY MONITORING -- do not chart) 1 each PRN DAILY PRN MC SEE COMMENTS ; Start 05/03/17 at 08:15; Status UNV Alteplase, Recombinant (Cathflo) 2 mg 1X ONCE INT CAT Last administered on t 06:29; Start 05/04/17 at 06:00; Stop 05/04/17 at 06:01; Status DC Active Scripts Active Hydrocodone-Apap 10-325 (Hydrocodone Bit/Acetaminophen) 1 Each Tablet 1 Tab PO PRN Q6HRS PRN 30 Days Senna-Time S Tablet (Sennosides/Docusate Sodium) 1 Each Tablet 2 Tab PO PRN DAILY PRN Reported Aranesp Syringe (Darbepoetin Noel In Polysorbat) 60 Mcg/0.3 Ml Disp.syrin 60 Mcg SQ WE@2100 Warfarin Sodium 3 Mg Tablet 1 Tab PO DAILY Midodrine Hcl 5 Mg Tablet 5 Mg PO BID at 10 and 18 Clonazepam 0.5 Mg Tablet 1 Tab PO TID [micro guard2% powd] TOP [moriah] Miralax (Polyethylene Glycol 3350) 17 Gm Powd.pack 1 Packet PO DAILY PRN Actos (Pioglitazone Hcl) 45 Mg Tablet 1 Tab PO DAILY Ondansetron HCl 4 mg/2 ml Syr (Ondansetron HCl/Pf) 4 Mg/2 Ml Syringe 4 Mg IV Q4HRS PRN Lomotil Tablet (Diphenoxylate Hcl/Atropine) 1 Each Tablet 1 Tab PO QID PRN Humalog (Insulin Lispro) 100 Unit/1 Ml Cartridge 0 SQ TIDAC sliding scale Lisinopril 10 Mg Tablet 10 Mg PO DAILY Oxycontin (Oxycodone HCl) 10 Mg Tab.er.12h 10 Mg PO BID Nephro-Sara Tablet (Folic Acid/Vitamin B Comp W-C) 0.8 Mg Tablet 0.8 Mg PO DAILY Ferrous Sulfate 325 Mg Tablet 325 Mg PO DAILY Famotidine 20 Mg Tablet 20 Mg PO DAILY Clonazepam 0.5 Mg Tablet 0.5 Mg PO Q6HRS PRN Escitalopram Oxalate 10 Mg Tablet 10 Mg PO DAILY Lantus Solostar (Insulin Glargine,Hum.rec.anlog) 100 Unit/1 Ml Insuln.pen 12 Units SQ QHS Trazodone Hcl 50 Mg Tablet 50 Mg PO PRN QHS PRN Actos (Pioglitazone Hcl) 45 Mg Tablet 1 Tab PO DAILY Tums (Calcium Carbonate) 300 Mg Tab.chew 300 Mg PO TIDAC Atorvastatin Calcium 20 Mg Tablet 40 Mg PO DAILY Vitals/I & O Vital Sign - Last 24 Hours 05/03/17 05/03/17 05/03/17 05/03/17 11:01 11:06 11:34 12:08 Temp 98.6 98.6 Pulse 71 64 Resp 20 B/P (MAP) 92/52 (65) 92/52 Pulse Ox 99 99 O2 Delivery Nasal Cannula Nasal Cannula Nasal Cannula O2 Flow Rate 6.0 6.0 6.0 05/03/17 05/03/17 05/03/17 05/03/17 12:24 13:00 14:00 14:07 Pulse 70 72 78 Resp 20 22 22 25 B/P (MAP) 109/56 (73) 89/68 (75) 107/52 (70) Pulse Ox 97 98 98 O2 Delivery Nasal Cannula Nasal Cannula Nasal Cannula Nasal Cannula O2 Flow Rate 6.0 6.0 6.0 2.0 05/03/17 05/03/17 05/03/17 05/03/17 15:08 16:00 16:15 16:28 Temp 98.7 98.7 Pulse 79 Resp 22 B/P (MAP) 114/57 (76) Pulse Ox 97 99 97 O2 Delivery Nasal Cannula Nasal Cannula Nasal Cannula O2 Flow Rate 6.0 2.0 2.0 05/03/17 05/03/17 05/03/17 05/03/17 16:47 16:58 17:05 18:03 Pulse 78 80 79 Resp 20 20 B/P (MAP) 114/57 115/55 (75) 106/55 (72) Pulse Ox 97 97 98 O2 Delivery Nasal Cannula Nasal Cannula Nasal Cannula O2 Flow Rate 2.0 6.0 6.0 05/03/17 05/03/17 05/03/17 05/03/17 19:00 20:00 20:00 21:00 Temp 98.1 98.1 Pulse 70 72 72 Resp 14 18 16 B/P (MAP) 98/53 (68) 97/50 (66) 97/44 (61) Pulse Ox 98 95 96 O2 Delivery Nasal Cannula Nasal Cannula Nasal Cannula Nasal Cannula O2 Flow Rate 2.0 2.0 2.0 2.0 05/03/17 05/03/17 05/03/17 05/03/17 21:21 22:00 23:00 23:59 Pulse 74 72 Resp 17 22 18 B/P (MAP) 111/70 (84) 105/50 (68) Pulse Ox 96 97 97 O2 Delivery Nasal Cannula Nasal Cannula Nasal Cannula O2 Flow Rate 2.0 2.0 2.0 2.0 05/03/17 05/03/17 05/04/17 05/04/17 23:59 23:59 01:00 01:21 Temp 98.5 98.5 Pulse 68 66 Resp 16 16 16 B/P (MAP) 104/53 (70) 97/51 (66) Pulse Ox 98 91 92 O2 Delivery BiPAP/CPAP BiPAP/CPAP BiPAP/CPAP O2 Flow Rate 2.0 2.0 2.0 2.0 05/04/17 05/04/17 05/04/17 05/04/17 02:00 03:00 04:00 04:00 Temp 98.7 98.7 Pulse 70 70 77 Resp 15 13 18 B/P (MAP) 101/56 (71) 100/55 (70) 96/56 (69) Pulse Ox 91 93 96 O2 Delivery BiPAP/CPAP BiPAP/CPAP Nasal Cannula Nasal Cannula O2 Flow Rate 2.0 2.0 2.0 2.0 05/04/17 05/04/17 05/04/17 05/04/17 04:02 05:00 05:02 06:00 Pulse 71 70 Resp 15 17 15 15 B/P (MAP) 109/57 (74) 113/61 (78) Pulse Ox 94 97 99 O2 Delivery Nasal Cannula Nasal Cannula Nasal Cannula Nasal Cannula O2 Flow Rate 2.0 2.0 2.0 2.0 05/04/17 05/04/17 05/04/17 05/04/17 07:00 08:00 08:00 08:00 Temp 98.7 98.7 Pulse 69 68 68 Resp 15 14 B/P (MAP) 102/55 (71) 109/56 (73) 109/56 (73) Pulse Ox 100 97 O2 Delivery Nasal Cannula BiPAP/CPAP Bi-pap O2 Flow Rate 2.0 05/04/17 05/04/17 05/04/17 08:39 08:39 09:00 Pulse 68 76 Resp 14 14 B/P (MAP) 109/56 138/65 (89) Pulse Ox 100 90 O2 Delivery Nasal Cannula Nasal Cannula O2 Flow Rate 2.0 2.0 Intake and Output 05/03/17 05/03/17 05/04/17 15:00 23:00 07:00 Intake Total 145 ml 150 ml Output Total 0 ml Balance 145 ml 150 ml JARON RAMOS MD May 04, 2017 10:12
[2017-05-04] MEDS: fentaNYL PF VIAL 100 MCG/2 ML VIAL IV PRN ×3 (12:50→22:49)
[2017-05-04] MEDS: WARFARIN 3 MG TABLET. PO SCH (16:54)
[2017-05-04] MEDS: INSULIN DETEMIR 300 UNITS/3 ML INSULN.PEN. SQ SCH (20:55)
[2017-05-05] VITALS (16 sets, daily range): BP systolic 84–121; BP diastolic 45–66
[2017-05-05] MEDS: HYDROcodone/APAP 10/325 1 TAB TABLET PO PRN ×2 (02:49→12:49)
[2017-05-05 06:14] LABS: BASO # 0.1 x10^3/uL (0.0-0.2); BASO % 1 % (0-3); EOS % 3 % (0-3); HEMATOCRIT 21.5 % (39.0-53.0); LYMPH # 1.2 x10^3/uL (1.0-4.8); LYMPH % 15 % (24-48); MEAN CORPUSCULAR HEMOGLOBIN 29 pg (25-35); MEAN CORPUSCULAR HGB CONC 32 g/dL (31-37); MEAN CORPUSCULAR VOLUME 90 fL (79-100); MONO % 8 % (0-9); NEUT % 74 % (31-73); PLATELET COUNT 346 x10^3/uL (140-400); RED BLOOD COUNT 2.39 x10^6/uL (4.30-5.70); RED CELL DISTRIBUTION WIDTH 17.8 % (11.5-14.5); WHITE BLOOD COUNT 8.4 x10^3/uL (4.0-11.0)
[2017-05-05 06:26] LABS: HEMOGLOBIN 6.9 g/dL (13.0-17.5)
[2017-05-05 06:28] LABS: INR 2.7 (0.8-1.1); PROTHROMBIN TIME PATIENT 26.9 SEC (11.7-14.0)
[2017-05-05 06:34] LABS: CREATININE 5.3 mg/dL (0.7-1.3); GFR 11.2; POTASSIUM 4.1 mmol/L (3.5-5.1)
[2017-05-05] MEDS: CALCIUM CARBONATE 500 MG TAB.CHEW PO SCH ×2 (07:30→12:49)
[2017-05-05] MEDS: fentaNYL PF VIAL 100 MCG/2 ML VIAL IV PRN (07:47)
[2017-05-05] MEDS: MIDODRINE 5 MG TABLET PO SCH (07:47)
[2017-05-05] MEDS: INSULIN ASPART 300 UNITS/3 ML INSULN.PEN SQ SCH ×2 (08:00→11:25)
[2017-05-05] MEDS: LISINOPRIL 10 MG TABLET PO SCH (08:31)
--- NOTE | 2017-05-05 09:24 | PDOC ---
PROGRESS NOTES Subjective Subjective Few episodes of bradycardia overnight, but stable now. Patient doing well and reports that he feels good today. Currently undergoing hemodialysis. BP stable, off pressors. Denies any chest pain/discomfort or other cardiac symptoms. Plan to be d/c to specialty facility this afternoon. Objective Objective Vital Signs Date Time Temp Pulse Resp B/P (MAP) Pulse Ox O2 Delivery O2 Flow Rate FiO2 05/05/17 09:02 97.3 59 14 102/52 97.3 05/05/17 08:31 98 Nasal Cannula 2.0 Intake and Output 05/05/17 07:00 Intake Total 600 ml Balance 600 ml Intake Oral 600 ml # Bowel Movements 2 Physical Exam COMMENT Alert, Awake, Oriented In No Acute Distress, Currently undergoing hemodialysis Lungs CTAB Cardiac: No changes in cardiac exam. S1-S2, 2/6 systolic murmur and 2/6 diastolic murmur. No changes in edema Plan Plan of Care Patient continues to be compensated cardiac-vazquez. Vitals stable without need for pressors. Continue cardiac telemetry and Coumadin for chronic A Fib. Cardiac echo showing EF 40%, a small pericardial effusion, b/l pleural effusion , and L chronic systolic/diastolic dysfunction. Will make no additional changes to medication at this time as patient is stable and compensated. Otherwise, will continue with medical treatment without any further invasive surgeries. Plan to continue with dialysis until after New Years. At that point will reassess situation, but discussed in length with patient about d/c HD after the New Years and proceeding with comfort measures only. Patient and family in agreement with plan. Agree with plan to d/c patient to either SNF or LTAC this afternoon Comment Review of Relevant I have reviewed the following items maria teresa (where applicable) has been applied. Labs Laboratory Tests Test 05/03/17 10:59 05/03/17 14:27 05/03/17 21:24 05/04/17 05:45 Glucose (Fingerstick) 116 mg/dL (70-99) 100 mg/dL (70-99) 133 mg/dL (70-99) White Blood Count 6.4 x10^3/uL (4.0-11.0) Red Blood Count 2.46 x10^6/uL (4.30-5.70) Hemoglobin 7.0 g/dL (13.0-17.5) Hematocrit 21.9 % (39.0-53.0) Mean Corpuscular Volume 89 fL (79-100) Mean Corpuscular Hemoglobin 29 pg (25-35) Mean Corpuscular Hemoglobin Concent 32 g/dL (31-37) Red Cell Distribution Width 17.3 % (11.5-14.5) Platelet Count 323 x10^3/uL (140-400) Neutrophils (%) (Auto) 71 % (31-73) Lymphocytes (%) (Auto) 15 % (24-48) Monocytes (%) (Auto) 10 % (0-9) Eosinophils (%) (Auto) 4 % (0-3) Basophils (%) (Auto) 1 % (0-3) Neutrophils # (Auto) 4.6 x10^3uL (1.8-7.7) Lymphocytes # (Auto) 1.0 x10^3/uL (1.0-4.8) Monocytes # (Auto) 0.6 x10^3/uL (0.0-1.1) Eosinophils # (Auto) 0.2 x10^3/uL (0.0-0.7) Basophils # (Auto) 0.1 x10^3/uL (0.0-0.2) Prothrombin Time 26.8 SEC (11.7-14.0) Prothromb Time International Ratio 2.7 (0.8-1.1) Sodium Level 133 mmol/L (136-145) Potassium Level 3.9 mmol/L (3.5-5.1) Chloride Level 98 mmol/L (98-107) Carbon Dioxide Level 29 mmol/L (21-32) Anion Gap 6 (6-14) Blood Urea Nitrogen 28 mg/dL (8-26) Creatinine 3.8 mg/dL (0.7-1.3) Estimated GFR (Cockcroft-Gault) 16.4 Glucose Level 105 mg/dL (70-99) Calcium Level 8.2 mg/dL (8.5-10.1) Test 05/04/17 08:38 05/04/17 12:22 05/04/17 16:56 05/04/17 20:53 Glucose (Fingerstick) 92 mg/dL (70-99) 160 mg/dL (70-99) 163 mg/dL (70-99) 175 mg/dL (70-99) Test 05/05/17 06:00 White Blood Count 8.4 x10^3/uL (4.0-11.0) Red Blood Count 2.39 x10^6/uL (4.30-5.70) Hemoglobin 6.9 g/dL (13.0-17.5) Hematocrit 21.5 % (39.0-53.0) Mean Corpuscular Volume 90 fL (79-100) Mean Corpuscular Hemoglobin 29 pg (25-35) Mean Corpuscular Hemoglobin Concent 32 g/dL (31-37) Red Cell Distribution Width 17.8 % (11.5-14.5) Platelet Count 346 x10^3/uL (140-400) Neutrophils (%) (Auto) 74 % (31-73) Lymphocytes (%) (Auto) 15 % (24-48) Monocytes (%) (Auto) 8 % (0-9) Eosinophils (%) (Auto) 3 % (0-3) Basophils (%) (Auto) 1 % (0-3) Neutrophils # (Auto) 6.3 x10^3uL (1.8-7.7) Lymphocytes # (Auto) 1.2 x10^3/uL (1.0-4.8) Monocytes # (Auto) 0.7 x10^3/uL (0.0-1.1) Eosinophils # (Auto) 0.2 x10^3/uL (0.0-0.7) Basophils # (Auto) 0.1 x10^3/uL (0.0-0.2) Prothrombin Time 26.9 SEC (11.7-14.0) Prothromb Time International Ratio 2.7 (0.8-1.1) Sodium Level 133 mmol/L (136-145) Potassium Level 4.1 mmol/L (3.5-5.1) Chloride Level 94 mmol/L (98-107) Carbon Dioxide Level 29 mmol/L (21-32) Anion Gap 10 (6-14) Blood Urea Nitrogen 39 mg/dL (8-26) Creatinine 5.3 mg/dL (0.7-1.3) Estimated GFR (Cockcroft-Gault) 11.2 Glucose Level 150 mg/dL (70-99) Calcium Level 8.0 mg/dL (8.5-10.1) Laboratory Tests Test 05/04/17 12:22 05/04/17 16:56 05/04/17 20:53 05/05/17 06:00 Glucose (Fingerstick) 160 mg/dL (70-99) 163 mg/dL (70-99) 175 mg/dL (70-99) White Blood Count 8.4 x10^3/uL (4.0-11.0) Red Blood Count 2.39 x10^6/uL (4.30-5.70) Hemoglobin 6.9 g/dL (13.0-17.5) Hematocrit 21.5 % (39.0-53.0) Mean Corpuscular Volume 90 fL (79-100) Mean Corpuscular Hemoglobin 29 pg (25-35) Mean Corpuscular Hemoglobin Concent 32 g/dL (31-37) Red Cell Distribution Width 17.8 % (11.5-14.5) Platelet Count 346 x10^3/uL (140-400) Neutrophils (%) (Auto) 74 % (31-73) Lymphocytes (%) (Auto) 15 % (24-48) Monocytes (%) (Auto) 8 % (0-9) Eosinophils (%) (Auto) 3 % (0-3) Basophils (%) (Auto) 1 % (0-3) Neutrophils # (Auto) 6.3 x10^3uL (1.8-7.7) Lymphocytes # (Auto) 1.2 x10^3/uL (1.0-4.8) Monocytes # (Auto) 0.7 x10^3/uL (0.0-1.1) Eosinophils # (Auto) 0.2 x10^3/uL (0.0-0.7) Basophils # (Auto) 0.1 x10^3/uL (0.0-0.2) Prothrombin Time 26.9 SEC (11.7-14.0) Prothromb Time International Ratio 2.7 (0.8-1.1) Sodium Level 133 mmol/L (136-145) Potassium Level 4.1 mmol/L (3.5-5.1) Chloride Level 94 mmol/L (98-107) Carbon Dioxide Level 29 mmol/L (21-32) Anion Gap 10 (6-14) Blood Urea Nitrogen 39 mg/dL (8-26) Creatinine 5.3 mg/dL (0.7-1.3) Estimated GFR (Cockcroft-Gault) 11.2 Glucose Level 150 mg/dL (70-99) Calcium Level 8.0 mg/dL (8.5-10.1) Medications Current Medications Acetaminophen/ Hydrocodone Bitart (Lortab 10/325) 1 tab PRN Q6HRS PRN PO PAIN Last administered on 05/05/17 02:49; Start 04/28/17 at 18:45 Atorvastatin Calcium (Lipitor) 40 mg DAILY PO Last administered on 05/04/17 08 :41; Start 04/29/17 at 09:00 Clonazepam (KlonoPIN) 0.5 mg PRN Q6HRS PRN PO ANXIETY / AGITATION; Start 04/28 at 21:15 Famotidine (Pepcid) 20 mg DAILY PO ; Start 04/29/17 at 09:00; Stop 04/29/17 at 14:04; Status DC Ferrous Sulfate (Feosol) 325 mg DAILY PO Last administered on 05/01/17 09:25; Start 04/29/17 at 09:00; Stop 05/01/17 at 12:55; Status DC Vitamin B Complex/ Vitamin C (Sapphire-Sara) 1 tab DAILY PO Last administered on 08:39; Start 04/29/17 at 09:00 Lisinopril (Prinivil) 10 mg DAILY PO Last administered on 05/01/17 09:25; Start 04/29/17 at 09:00 Oxycodone HCl (OxyCONTIN) 10 mg BID PO Last administered on 05/04/17 19:38; Start 04/29/17 at 09:00 Senna/Docusate Sodium (Senna Plus) 2 tab PRN DAILY PRN PO CONSTIPATION 1ST CHOICE; Start 04/28/17 at 21:15 Trazodone HCl (Desyrel) 50 mg PRN QHS PRN PO INSOMNIA Last administered on 04/30 20:59; Start 04/28/17 at 21:15 Calcium Carbonate/ Glycine (Tums) 500 mg TIDAC PO Last administered on 16:53; Start 04/29/17 at 07:30 Citalopram Hydrobromide (CeleXA) 20 mg DAILY PO Last administered on 05/04/17 08:41; Start 04/29/17 at 09:00 Insulin Detemir (Levemir) 22 units QHS SQ ; Start 04/29/17 at 21:00; Stop at 21:00; Status DC Insulin Aspart (NovoLOG) 2 units TIDAC SQ ; Start 04/29/17 at 07:30; Stop at 07:30; Status DC Pioglitazone HCl (Actos) 45 mg DAILY PO Last administered on 05/04/17 08:40; Start 04/29/17 at 09:00 Insulin Detemir (Levemir) 12 units QHS SQ Last administered on 05/04/17 20:55 ; Start 04/29/17 at 21:00 Insulin Aspart (NovoLOG) 0-5 UNITS TIDWMEALS SQ ; Start 04/29/17 at 08:00; Stop 04/29/17 at 14:05; Status DC Dextrose (Dextrose 50%-Water Syringe) 12.5 gm PRN Q15MIN PRN IV SEE COMMENTS; Start 04/28/17 at 22:00; Stop 04/29/17 at 12:17; Status DC Clonazepam (KlonoPIN) 0.5 mg TID PO Last administered on 05/04/17 20:54; Start 04/28/17 at 22:00 Diphenoxylate HCl/ Atropine (Lomotil) 1 tab PRN QID PRN PO DIARRHEA; Start at 22:00 Midodrine (Proamatine) 5 mg BIDBFRMEAL PO Last administered on 05/05/17 07:47 ; Start 04/29/17 at 07:30 Polyethylene Glycol (miraLAX PACKET) 17 gm PRN DAILY PRN PO CONSTIPATION; Start 04/28/17 at 22:00 Warfarin Sodium (Coumadin) 3 mg DAILY16 PO Last administered on 05/04/17 16:54 ; Start 04/29/17 at 16:00 Darbepoetin Noel (Aranesp) 60 mcg Th SQ Last administered on 04/29/17 22:11; Start 04/29/17 at 21:00 Ondansetron HCl (Zofran) 4 mg PRN Q4HRS PRN IV NAUSEA; Start 04/28/17 at 22:00 Warfarin Sodium (Coumadin Per Physician) 1 each PRN DAILY PRN MC SEE COMMENTS Last administered on 05/03/17 09:57; Start 04/28/17 at 22:15 Sodium Chloride 1,000 ml @ 1,000 mls/hr Q1H PRN IV hypotension; Start at 08:39; Stop 04/29/17 at 14:38; Status DC Albumin Human 200 ml @ 200 mls/hr 1X PRN PRN IV Hypotension; Start 04/29/17 at 08:45; Stop 04/29/17 at 14:44; Status DC Sodium Chloride 1,000 ml @ 400 mls/hr Q2H30M PRN IV PATENCY; Start 04/29/17 at 08:39; Stop 04/29/17 at 20:38; Status DC Info (PHARMACY MONITORING -- do not chart) 1 each PRN DAILY PRN MC SEE COMMENTS ; Start 04/29/17 at 08:45; Status UNV Info (PHARMACY MONITORING -- do not chart) 1 each PRN DAILY PRN MC SEE COMMENTS ; Start 04/29/17 at 08:45 Insulin Aspart (NovoLOG) 0-7 UNITS TIDWMEALS SQ Last administered on 05/04/17 16:59; Start 04/29/17 at 12:00 Dextrose (Dextrose 50%-Water Syringe) 12.5 gm PRN Q15MIN PRN IV SEE COMMENTS; Start 04/29/17 at 10:00 Darbepoetin Noel (Aranesp) 60 mcg WEEKLYHS SQ ; Start 04/29/17 at 21:00; Stop 04/29/17 at 21:00; Status DC Famotidine (Pepcid) 20 mg Q48H PO Last administered on 05/03/17 14:23; Start 05/01/17 at 09:00 Fentanyl Citrate (Fentanyl 2ml Vial) 12.5 mcg PRN Q3HRS PRN IM PAIN; Start at 14:15; Stop 04/29/17 at 14:34; Status DC Fentanyl Citrate (Fentanyl 2ml Vial) 12.5 mcg PRN Q3HRS PRN IV PAIN Last administered on 05/05/17 07:47; Start 04/29/17 at 14:45 Propofol 20 ml @ As Directed STK-MED ONCE IV ; Start 04/29/17 at 15:45; Stop 04/29/17 at 15:46; Status DC Lidocaine HCl (Lidocaine Pf 2% Vial) 5 ml STK-MED ONCE .ROUTE ; Start 04/29/17 at 15:45; Stop 04/29/17 at 15:46; Status DC Succinylcholine Chloride (Anectine) 200 mg STK-MED ONCE .ROUTE ; Start at 15:46; Stop 04/29/17 at 15:47; Status DC Rocuronium [place] (Zemuron) 50 mg STK-MED ONCE .ROUTE ; Start 04/29/17 at 15: 46; Stop 04/29/17 at 15:47; Status DC Fentanyl Citrate (Fentanyl 2ml Vial) 100 mcg STK-MED ONCE .ROUTE ; Start at 15:46; Stop 04/29/17 at 15:47; Status DC Cefazolin Sodium/ Dextrose 50 ml @ As Directed STK-MED ONCE IV ; Start at 16:46; Stop 04/29/17 at 16:47; Status DC Ephedrine Sulfate (Akovaz) 50 mg STK-MED ONCE .ROUTE ; Start 04/29/17 at 16:47 ; Stop 04/29/17 at 16:48; Status DC Rocuronium [place] (Zemuron) 50 mg STK-MED ONCE .ROUTE ; Start 04/29/17 at 17: 23; Stop 04/29/17 at 17:24; Status DC Fentanyl Citrate (Fentanyl 2ml Vial) 100 mcg STK-MED ONCE .ROUTE ; Start at 17:23; Stop 04/29/17 at 17:24; Status DC Ondansetron HCl (Zofran) 4 mg STK-MED ONCE .ROUTE ; Start 04/29/17 at 17:32; Stop 04/29/17 at 17:33; Status DC Neostigmine Methylsulfate (Bloxiverz) 10 mg STK-MED ONCE .ROUTE ; Start at 17:32; Stop 04/29/17 at 17:33; Status DC Glycopyrrolate (Robinul) 1 mg STK-MED ONCE .ROUTE ; Start 04/29/17 at 17:33; Stop 04/29/17 at 17:34; Status DC Albumin Human 500 ml @ As Directed STK-MED ONCE IV ; Start 04/29/17 at 17:50; Stop 04/29/17 at 17:51; Status DC Vasopressin (Vasostrict) 20 unit STK-MED ONCE .ROUTE ; Start 04/29/17 at 17:53 ; Stop 04/29/17 at 17:54; Status DC Sodium Chloride (Sodium Chloride) 50 ml STK-MED ONCE IJ ; Start 04/29/17 at 17: 54; Stop 04/29/17 at 17:55; Status DC Phenylephrine HCl 80 mg/Sodium Chloride 258 ml @ 0 mls/hr CONT PRN IV SEE I/O RECORD Last administered on 05/02/17t 21:09; Start 04/29/17 at 20:30 Fentanyl Citrate (Fentanyl 2ml Vial) 25 mcg PRN Q5MIN PRN IV Acute Pain; Start 04/29/17 at 20:30; Stop 04/30/17 at 20:29; Status DC Fentanyl Citrate (Fentanyl 2ml Vial) 50 mcg PRN Q5MIN PRN IV Acute Pain; Start 04/29/17 at 20:30; Stop 04/30/17 at 20:29; Status DC Morphine Sulfate 2 mg PRN Q10MIN PRN IV Mild Pain; Start 04/29/17 at 20:30; Stop 04/30/17 at 20:29; Status DC Hydromorphone HCl (Dilaudid) 0.2 mg PRN Q10MIN PRN IV Mild pain; Start at 20:30; Stop 04/30/17 at 20:29; Status DC Ondansetron HCl (Zofran) 4 mg PRN Q6HRS PRN IV Nausea, 1st Choice; Start 04/29 at 20:30; Stop 04/30/17 at 20:29; Status DC Sodium Chloride 1,000 ml @ 1,000 mls/hr Q1H PRN IV hypotension; Start 04/30/17 at 08:33; Stop 04/30/17 at 14:32; Status DC Diphenhydramine HCl (Benadryl) 25 mg 1X PRN PRN IV ITCHING; Start 04/30/17 at 08:45; Stop 05/01/17 at 08:44; Status DC Diphenhydramine HCl (Benadryl) 25 mg 1X PRN PRN IV ITCHING; Start 04/30/17 at 08:45; Stop 05/01/17 at 08:44; Status DC Sodium Chloride 1,000 ml @ 400 mls/hr Q2H30M PRN IV PATENCY; Start 04/30/17 at 08:33; Stop 04/30/17 at 20:32; Status DC Info (PHARMACY MONITORING -- do not chart) 1 each PRN DAILY PRN MC SEE COMMENTS ; Start 04/30/17 at 08:45; Status UNV Sodium Chloride 1,000 ml @ 1,000 mls/hr Q1H PRN IV hypotension; Start 05/03/17 at 08:15; Stop 05/03/17 at 14:14; Status DC Sodium Chloride 1,000 ml @ 400 mls/hr Q2H30M PRN IV PATENCY; Start 05/03/17 at 08:15; Stop 05/03/17 at 20:14; Status DC Info (PHARMACY MONITORING -- do not chart) 1 each PRN DAILY PRN MC SEE COMMENTS ; Start 05/03/17 at 08:15; Status UNV Info (PHARMACY MONITORING -- do not chart) 1 each PRN DAILY PRN MC SEE COMMENTS ; Start 05/03/17 at 08:15; Status UNV Alteplase, Recombinant (Cathflo) 2 mg 1X ONCE INT CAT Last administered on t 06:29; Start 05/04/17 at 06:00; Stop 05/04/17 at 06:01; Status DC Active Scripts Active Hydrocodone-Apap 10-325 (Hydrocodone Bit/Acetaminophen) 1 Each Tablet 1 Tab PO PRN Q6HRS PRN 30 Days Senna-Time S Tablet (Sennosides/Docusate Sodium) 1 Each Tablet 2 Tab PO PRN DAILY PRN Reported Aranesp Syringe (Darbepoetin Noel In Polysorbat) 60 Mcg/0.3 Ml Disp.syrin 60 Mcg SQ WE@2100 Warfarin Sodium 3 Mg Tablet 1 Tab PO DAILY Midodrine Hcl 5 Mg Tablet 5 Mg PO BID at 10 and 18 Clonazepam 0.5 Mg Tablet 1 Tab PO TID [micro guard2% powd] TOP [moriah] Miralax (Polyethylene Glycol 3350) 17 Gm Powd.pack 1 Packet PO DAILY PRN Actos (Pioglitazone Hcl) 45 Mg Tablet 1 Tab PO DAILY Ondansetron HCl 4 mg/2 ml Syr (Ondansetron HCl/Pf) 4 Mg/2 Ml Syringe 4 Mg IV Q4HRS PRN Lomotil Tablet (Diphenoxylate Hcl/Atropine) 1 Each Tablet 1 Tab PO QID PRN Humalog (Insulin Lispro) 100 Unit/1 Ml Cartridge 0 SQ TIDAC sliding scale Lisinopril 10 Mg Tablet 10 Mg PO DAILY Oxycontin (Oxycodone HCl) 10 Mg Tab.er.12h 10 Mg PO BID Nephro-Sara Tablet (Folic Acid/Vitamin B Comp W-C) 0.8 Mg Tablet 0.8 Mg PO DAILY Ferrous Sulfate 325 Mg Tablet 325 Mg PO DAILY Famotidine 20 Mg Tablet 20 Mg PO DAILY Clonazepam 0.5 Mg Tablet 0.5 Mg PO Q6HRS PRN Escitalopram Oxalate 10 Mg Tablet 10 Mg PO DAILY Lantus Solostar (Insulin Glargine,Hum.rec.anlog) 100 Unit/1 Ml Insuln.pen 12 Units SQ QHS Trazodone Hcl 50 Mg Tablet 50 Mg PO PRN QHS PRN Actos (Pioglitazone Hcl) 45 Mg Tablet 1 Tab PO DAILY Tums (Calcium Carbonate) 300 Mg Tab.chew 300 Mg PO TIDAC Atorvastatin Calcium 20 Mg Tablet 40 Mg PO DAILY Vitals/I & O Vital Sign - Last 24 Hours 05/04/17 05/04/17 05/04/17 05/04/17 10:00 11:00 12:00 12:00 Temp 99.4 99.4 Pulse 84 82 87 Resp 29 12 19 B/P (MAP) 113/52 (72) 91/54 (66) 102/56 (71) Pulse Ox 91 90 96 O2 Delivery Nasal Cannula Nasal Cannula Nasal Cannula Nasal Cannula O2 Flow Rate 2.0 2.0 2.0 2.0 05/04/17 05/04/17 05/04/17 05/04/17 12:42 12:50 13:00 13:24 Pulse 85 Resp 15 28 26 B/P (MAP) 105/55 (72) Pulse Ox 96 93 O2 Delivery Nasal Cannula Nasal Cannula O2 Flow Rate 2.0 2.0 2.0 05/04/17 05/04/17 05/04/17 05/04/17 14:00 15:00 16:00 16:00 Temp 99.0 99.0 Pulse 69 70 68 Resp 18 17 17 B/P (MAP) 89/50 (63) 102/54 (70) 104/53 (70) Pulse Ox 95 97 99 O2 Delivery Nasal Cannula Nasal Cannula Nasal Cannula Nasal Cannula O2 Flow Rate 2.0 2.0 2.0 2.0 05/04/17 05/04/17 05/04/17 05/04/17 16:53 17:00 17:52 18:00 Pulse 70 79 67 Resp 18 14 27 B/P (MAP) 102/54 103/56 (72) 108/57 (74) Pulse Ox 99 99 99 O2 Delivery Nasal Cannula Nasal Cannula Nasal Cannula O2 Flow Rate 2.0 2.0 2.0 05/04/17 05/04/17 05/04/17 05/04/17 19:00 19:38 20:00 20:00 Temp 98.3 98.3 Pulse 72 73 Resp 22 22 18 B/P (MAP) 105/57 (73) 81/40 (54) Pulse Ox 97 98 99 O2 Delivery Nasal Cannula Nasal Cannula Nasal Cannula Nasal Cannula O2 Flow Rate 2.0 2.0 2.0 2.0 05/04/17 05/04/17 05/04/17 05/04/17 21:00 21:00 22:00 22:49 Pulse 72 68 Resp 17 17 19 B/P (MAP) 90/50 (63) 94/53 (67) Pulse Ox 99 96 97 O2 Delivery Nasal Cannula Nasal Cannula BiPAP/CPAP O2 Flow Rate 2.0 2.0 2.0 05/04/17 05/04/17 05/05/17 05/05/17 23:00 23:38 00:00 01:00 Temp 98.6 98.6 Pulse 75 88 69 Resp 17 17 17 16 B/P (MAP) 91/53 (66) 90/53 (65) 96/54 (68) Pulse Ox 97 97 95 91 O2 Delivery Nasal Cannula BiPAP/CPAP BiPAP/CPAP BiPAP/CPAP O2 Flow Rate 2.0 05/05/17 05/05/17 05/05/17 05/05/17 02:00 02:49 03:00 03:49 Pulse 69 66 Resp 17 21 22 19 B/P (MAP) 91/52 (65) 86/46 (59) Pulse Ox 91 100 96 98 O2 Delivery BiPAP/CPAP Nasal Cannula BiPAP/CPAP Nasal Cannula O2 Flow Rate 2.0 2.0 05/05/17 05/05/17 05/05/17 05/05/17 04:00 05:00 06:00 07:00 Temp 97.3 97.3 97.3 97.3 Pulse 64 61 64 64 Resp 19 23 14 15 B/P (MAP) 84/48 (60) 92/49 (63) 86/50 (62) 87/45 (59) Pulse Ox 98 98 98 98 O2 Delivery BiPAP/CPAP BiPAP/CPAP BiPAP/CPAP BiPAP/CPAP 05/05/17 05/05/17 05/05/17 05/05/17 07:47 07:47 08:00 08:15 Pulse 68 66 Resp 17 B/P (MAP) 87/45 97/66 (76) Pulse Ox 98 98 O2 Delivery Nasal Cannula Nasal Cannula Nasal Cannula O2 Flow Rate 2.0 2.0 2.0 05/05/17 05/05/17 05/05/17 08:31 08:31 09:02 Temp 97.3 97.3 Pulse 58 59 Resp 14 B/P (MAP) 99/52 102/52 Pulse Ox 98 O2 Delivery Nasal Cannula O2 Flow Rate 2.0 Intake and Output 05/04/17 05/04/17 05/05/17 15:00 23:00 07:00 Intake Total 200 ml 100 ml 300 ml Balance 200 ml 100 ml 300 ml JARON RAMOS MD May 05, 2017 09:24
--- NOTE | 2017-05-05 09:44 | PDOC ---
PROGRESS NOTES Subjective Subjective No new complaints. Objective Objective Vital Signs Date Time Temp Pulse Resp B/P (MAP) Pulse Ox O2 Delivery O2 Flow Rate FiO2 05/05/17 09:02 97.3 59 14 102/52 97.3 05/05/17 08:31 98 Nasal Cannula 2.0 Intake and Output 05/05/17 07:00 Intake Total 600 ml Balance 600 ml Intake Oral 600 ml # Bowel Movements 2 Physical Exam Physical Exam He is alert,supine in bed and seems to be comfortable and less edema of left foot and wound vac in place. Plan Plan of Care To LTAC for continued care. Comment Review of Relevant I have reviewed the following items maria teresa (where applicable) has been applied. Labs Laboratory Tests Test 05/03/17 10:59 05/03/17 14:27 05/03/17 21:24 05/04/17 05:45 Glucose (Fingerstick) 116 mg/dL (70-99) 100 mg/dL (70-99) 133 mg/dL (70-99) White Blood Count 6.4 x10^3/uL (4.0-11.0) Red Blood Count 2.46 x10^6/uL (4.30-5.70) Hemoglobin 7.0 g/dL (13.0-17.5) Hematocrit 21.9 % (39.0-53.0) Mean Corpuscular Volume 89 fL (79-100) Mean Corpuscular Hemoglobin 29 pg (25-35) Mean Corpuscular Hemoglobin Concent 32 g/dL (31-37) Red Cell Distribution Width 17.3 % (11.5-14.5) Platelet Count 323 x10^3/uL (140-400) Neutrophils (%) (Auto) 71 % (31-73) Lymphocytes (%) (Auto) 15 % (24-48) Monocytes (%) (Auto) 10 % (0-9) Eosinophils (%) (Auto) 4 % (0-3) Basophils (%) (Auto) 1 % (0-3) Neutrophils # (Auto) 4.6 x10^3uL (1.8-7.7) Lymphocytes # (Auto) 1.0 x10^3/uL (1.0-4.8) Monocytes # (Auto) 0.6 x10^3/uL (0.0-1.1) Eosinophils # (Auto) 0.2 x10^3/uL (0.0-0.7) Basophils # (Auto) 0.1 x10^3/uL (0.0-0.2) Prothrombin Time 26.8 SEC (11.7-14.0) Prothromb Time International Ratio 2.7 (0.8-1.1) Sodium Level 133 mmol/L (136-145) Potassium Level 3.9 mmol/L (3.5-5.1) Chloride Level 98 mmol/L (98-107) Carbon Dioxide Level 29 mmol/L (21-32) Anion Gap 6 (6-14) Blood Urea Nitrogen 28 mg/dL (8-26) Creatinine 3.8 mg/dL (0.7-1.3) Estimated GFR (Cockcroft-Gault) 16.4 Glucose Level 105 mg/dL (70-99) Calcium Level 8.2 mg/dL (8.5-10.1) Test 05/04/17 08:38 05/04/17 12:22 05/04/17 16:56 05/04/17 20:53 Glucose (Fingerstick) 92 mg/dL (70-99) 160 mg/dL (70-99) 163 mg/dL (70-99) 175 mg/dL (70-99) Test 05/05/17 06:00 White Blood Count 8.4 x10^3/uL (4.0-11.0) Red Blood Count 2.39 x10^6/uL (4.30-5.70) Hemoglobin 6.9 g/dL (13.0-17.5) Hematocrit 21.5 % (39.0-53.0) Mean Corpuscular Volume 90 fL (79-100) Mean Corpuscular Hemoglobin 29 pg (25-35) Mean Corpuscular Hemoglobin Concent 32 g/dL (31-37) Red Cell Distribution Width 17.8 % (11.5-14.5) Platelet Count 346 x10^3/uL (140-400) Neutrophils (%) (Auto) 74 % (31-73) Lymphocytes (%) (Auto) 15 % (24-48) Monocytes (%) (Auto) 8 % (0-9) Eosinophils (%) (Auto) 3 % (0-3) Basophils (%) (Auto) 1 % (0-3) Neutrophils # (Auto) 6.3 x10^3uL (1.8-7.7) Lymphocytes # (Auto) 1.2 x10^3/uL (1.0-4.8) Monocytes # (Auto) 0.7 x10^3/uL (0.0-1.1) Eosinophils # (Auto) 0.2 x10^3/uL (0.0-0.7) Basophils # (Auto) 0.1 x10^3/uL (0.0-0.2) Prothrombin Time 26.9 SEC (11.7-14.0) Prothromb Time International Ratio 2.7 (0.8-1.1) Sodium Level 133 mmol/L (136-145) Potassium Level 4.1 mmol/L (3.5-5.1) Chloride Level 94 mmol/L (98-107) Carbon Dioxide Level 29 mmol/L (21-32) Anion Gap 10 (6-14) Blood Urea Nitrogen 39 mg/dL (8-26) Creatinine 5.3 mg/dL (0.7-1.3) Estimated GFR (Cockcroft-Gault) 11.2 Glucose Level 150 mg/dL (70-99) Calcium Level 8.0 mg/dL (8.5-10.1) Laboratory Tests Test 05/04/17 12:22 05/04/17 16:56 05/04/17 20:53 05/05/17 06:00 Glucose (Fingerstick) 160 mg/dL (70-99) 163 mg/dL (70-99) 175 mg/dL (70-99) White Blood Count 8.4 x10^3/uL (4.0-11.0) Red Blood Count 2.39 x10^6/uL (4.30-5.70) Hemoglobin 6.9 g/dL (13.0-17.5) Hematocrit 21.5 % (39.0-53.0) Mean Corpuscular Volume 90 fL (79-100) Mean Corpuscular Hemoglobin 29 pg (25-35) Mean Corpuscular Hemoglobin Concent 32 g/dL (31-37) Red Cell Distribution Width 17.8 % (11.5-14.5) Platelet Count 346 x10^3/uL (140-400) Neutrophils (%) (Auto) 74 % (31-73) Lymphocytes (%) (Auto) 15 % (24-48) Monocytes (%) (Auto) 8 % (0-9) Eosinophils (%) (Auto) 3 % (0-3) Basophils (%) (Auto) 1 % (0-3) Neutrophils # (Auto) 6.3 x10^3uL (1.8-7.7) Lymphocytes # (Auto) 1.2 x10^3/uL (1.0-4.8) Monocytes # (Auto) 0.7 x10^3/uL (0.0-1.1) Eosinophils # (Auto) 0.2 x10^3/uL (0.0-0.7) Basophils # (Auto) 0.1 x10^3/uL (0.0-0.2) Prothrombin Time 26.9 SEC (11.7-14.0) Prothromb Time International Ratio 2.7 (0.8-1.1) Sodium Level 133 mmol/L (136-145) Potassium Level 4.1 mmol/L (3.5-5.1) Chloride Level 94 mmol/L (98-107) Carbon Dioxide Level 29 mmol/L (21-32) Anion Gap 10 (6-14) Blood Urea Nitrogen 39 mg/dL (8-26) Creatinine 5.3 mg/dL (0.7-1.3) Estimated GFR (Cockcroft-Gault) 11.2 Glucose Level 150 mg/dL (70-99) Calcium Level 8.0 mg/dL (8.5-10.1) Medications Current Medications Acetaminophen/ Hydrocodone Bitart (Lortab 10/325) 1 tab PRN Q6HRS PRN PO PAIN Last administered on 05/05/17 02:49; Start 04/28/17 at 18:45 Atorvastatin Calcium (Lipitor) 40 mg DAILY PO Last administered on 05/04/17 08 :41; Start 04/29/17 at 09:00 Clonazepam (KlonoPIN) 0.5 mg PRN Q6HRS PRN PO ANXIETY / AGITATION; Start 04/28 at 21:15 Famotidine (Pepcid) 20 mg DAILY PO ; Start 04/29/17 at 09:00; Stop 04/29/17 at 14:04; Status DC Ferrous Sulfate (Feosol) 325 mg DAILY PO Last administered on 05/01/17 09:25; Start 04/29/17 at 09:00; Stop 05/01/17 at 12:55; Status DC Vitamin B Complex/ Vitamin C (Sapphire-Sara) 1 tab DAILY PO Last administered on 08:39; Start 04/29/17 at 09:00 Lisinopril (Prinivil) 10 mg DAILY PO Last administered on 05/01/17 09:25; Start 04/29/17 at 09:00 Oxycodone HCl (OxyCONTIN) 10 mg BID PO Last administered on 05/04/17 19:38; Start 04/29/17 at 09:00 Senna/Docusate Sodium (Senna Plus) 2 tab PRN DAILY PRN PO CONSTIPATION 1ST CHOICE; Start 04/28/17 at 21:15 Trazodone HCl (Desyrel) 50 mg PRN QHS PRN PO INSOMNIA Last administered on 04/30 20:59; Start 04/28/17 at 21:15 Calcium Carbonate/ Glycine (Tums) 500 mg TIDAC PO Last administered on 16:53; Start 04/29/17 at 07:30 Citalopram Hydrobromide (CeleXA) 20 mg DAILY PO Last administered on 05/04/17 08:41; Start 04/29/17 at 09:00 Insulin Detemir (Levemir) 22 units QHS SQ ; Start 04/29/17 at 21:00; Stop at 21:00; Status DC Insulin Aspart (NovoLOG) 2 units TIDAC SQ ; Start 04/29/17 at 07:30; Stop at 07:30; Status DC Pioglitazone HCl (Actos) 45 mg DAILY PO Last administered on 05/04/17 08:40; Start 04/29/17 at 09:00 Insulin Detemir (Levemir) 12 units QHS SQ Last administered on 05/04/17 20:55 ; Start 04/29/17 at 21:00 Insulin Aspart (NovoLOG) 0-5 UNITS TIDWMEALS SQ ; Start 04/29/17 at 08:00; Stop 04/29/17 at 14:05; Status DC Dextrose (Dextrose 50%-Water Syringe) 12.5 gm PRN Q15MIN PRN IV SEE COMMENTS; Start 04/28/17 at 22:00; Stop 04/29/17 at 12:17; Status DC Clonazepam (KlonoPIN) 0.5 mg TID PO Last administered on 05/04/17 20:54; Start 04/28/17 at 22:00 Diphenoxylate HCl/ Atropine (Lomotil) 1 tab PRN QID PRN PO DIARRHEA; Start at 22:00 Midodrine (Proamatine) 5 mg BIDBFRMEAL PO Last administered on 05/05/17 07:47 ; Start 04/29/17 at 07:30 Polyethylene Glycol (miraLAX PACKET) 17 gm PRN DAILY PRN PO CONSTIPATION; Start 04/28/17 at 22:00 Warfarin Sodium (Coumadin) 3 mg DAILY16 PO Last administered on 05/04/17 16:54 ; Start 04/29/17 at 16:00 Darbepoetin Noel (Aranesp) 60 mcg Th SQ Last administered on 04/29/17 22:11; Start 04/29/17 at 21:00 Ondansetron HCl (Zofran) 4 mg PRN Q4HRS PRN IV NAUSEA; Start 04/28/17 at 22:00 Warfarin Sodium (Coumadin Per Physician) 1 each PRN DAILY PRN MC SEE COMMENTS Last administered on 05/03/17 09:57; Start 04/28/17 at 22:15 Sodium Chloride 1,000 ml @ 1,000 mls/hr Q1H PRN IV hypotension; Start at 08:39; Stop 04/29/17 at 14:38; Status DC Albumin Human 200 ml @ 200 mls/hr 1X PRN PRN IV Hypotension; Start 04/29/17 at 08:45; Stop 04/29/17 at 14:44; Status DC Sodium Chloride 1,000 ml @ 400 mls/hr Q2H30M PRN IV PATENCY; Start 04/29/17 at 08:39; Stop 04/29/17 at 20:38; Status DC Info (PHARMACY MONITORING -- do not chart) 1 each PRN DAILY PRN MC SEE COMMENTS ; Start 04/29/17 at 08:45; Status UNV Info (PHARMACY MONITORING -- do not chart) 1 each PRN DAILY PRN MC SEE COMMENTS ; Start 04/29/17 at 08:45 Insulin Aspart (NovoLOG) 0-7 UNITS TIDWMEALS SQ Last administered on 05/04/17 16:59; Start 04/29/17 at 12:00 Dextrose (Dextrose 50%-Water Syringe) 12.5 gm PRN Q15MIN PRN IV SEE COMMENTS; Start 04/29/17 at 10:00 Darbepoetin Noel (Aranesp) 60 mcg WEEKLYHS SQ ; Start 04/29/17 at 21:00; Stop 04/29/17 at 21:00; Status DC Famotidine (Pepcid) 20 mg Q48H PO Last administered on 05/03/17 14:23; Start 05/01/17 at 09:00 Fentanyl Citrate (Fentanyl 2ml Vial) 12.5 mcg PRN Q3HRS PRN IM PAIN; Start at 14:15; Stop 04/29/17 at 14:34; Status DC Fentanyl Citrate (Fentanyl 2ml Vial) 12.5 mcg PRN Q3HRS PRN IV PAIN Last administered on 05/05/17 07:47; Start 04/29/17 at 14:45 Propofol 20 ml @ As Directed STK-MED ONCE IV ; Start 04/29/17 at 15:45; Stop 04/29/17 at 15:46; Status DC Lidocaine HCl (Lidocaine Pf 2% Vial) 5 ml STK-MED ONCE .ROUTE ; Start 04/29/17 at 15:45; Stop 04/29/17 at 15:46; Status DC Succinylcholine Chloride (Anectine) 200 mg STK-MED ONCE .ROUTE ; Start at 15:46; Stop 04/29/17 at 15:47; Status DC Rocuronium [place] (Zemuron) 50 mg STK-MED ONCE .ROUTE ; Start 04/29/17 at 15: 46; Stop 04/29/17 at 15:47; Status DC Fentanyl Citrate (Fentanyl 2ml Vial) 100 mcg STK-MED ONCE .ROUTE ; Start at 15:46; Stop 04/29/17 at 15:47; Status DC Cefazolin Sodium/ Dextrose 50 ml @ As Directed STK-MED ONCE IV ; Start at 16:46; Stop 04/29/17 at 16:47; Status DC Ephedrine Sulfate (Akovaz) 50 mg STK-MED ONCE .ROUTE ; Start 04/29/17 at 16:47 ; Stop 04/29/17 at 16:48; Status DC Rocuronium [place] (Zemuron) 50 mg STK-MED ONCE .ROUTE ; Start 04/29/17 at 17: 23; Stop 04/29/17 at 17:24; Status DC Fentanyl Citrate (Fentanyl 2ml Vial) 100 mcg STK-MED ONCE .ROUTE ; Start at 17:23; Stop 04/29/17 at 17:24; Status DC Ondansetron HCl (Zofran) 4 mg STK-MED ONCE .ROUTE ; Start 04/29/17 at 17:32; Stop 04/29/17 at 17:33; Status DC Neostigmine Methylsulfate (Bloxiverz) 10 mg STK-MED ONCE .ROUTE ; Start at 17:32; Stop 04/29/17 at 17:33; Status DC Glycopyrrolate (Robinul) 1 mg STK-MED ONCE .ROUTE ; Start 04/29/17 at 17:33; Stop 04/29/17 at 17:34; Status DC Albumin Human 500 ml @ As Directed STK-MED ONCE IV ; Start 04/29/17 at 17:50; Stop 04/29/17 at 17:51; Status DC Vasopressin (Vasostrict) 20 unit STK-MED ONCE .ROUTE ; Start 04/29/17 at 17:53 ; Stop 04/29/17 at 17:54; Status DC Sodium Chloride (Sodium Chloride) 50 ml STK-MED ONCE IJ ; Start 04/29/17 at 17: 54; Stop 04/29/17 at 17:55; Status DC Phenylephrine HCl 80 mg/Sodium Chloride 258 ml @ 0 mls/hr CONT PRN IV SEE I/O RECORD Last administered on 05/02/17t 21:09; Start 04/29/17 at 20:30 Fentanyl Citrate (Fentanyl 2ml Vial) 25 mcg PRN Q5MIN PRN IV Acute Pain; Start 04/29/17 at 20:30; Stop 04/30/17 at 20:29; Status DC Fentanyl Citrate (Fentanyl 2ml Vial) 50 mcg PRN Q5MIN PRN IV Acute Pain; Start 04/29/17 at 20:30; Stop 04/30/17 at 20:29; Status DC Morphine Sulfate 2 mg PRN Q10MIN PRN IV Mild Pain; Start 04/29/17 at 20:30; Stop 04/30/17 at 20:29; Status DC Hydromorphone HCl (Dilaudid) 0.2 mg PRN Q10MIN PRN IV Mild pain; Start at 20:30; Stop 04/30/17 at 20:29; Status DC Ondansetron HCl (Zofran) 4 mg PRN Q6HRS PRN IV Nausea, 1st Choice; Start 04/29 at 20:30; Stop 04/30/17 at 20:29; Status DC Sodium Chloride 1,000 ml @ 1,000 mls/hr Q1H PRN IV hypotension; Start 04/30/17 at 08:33; Stop 04/30/17 at 14:32; Status DC Diphenhydramine HCl (Benadryl) 25 mg 1X PRN PRN IV ITCHING; Start 04/30/17 at 08:45; Stop 05/01/17 at 08:44; Status DC Diphenhydramine HCl (Benadryl) 25 mg 1X PRN PRN IV ITCHING; Start 04/30/17 at 08:45; Stop 05/01/17 at 08:44; Status DC Sodium Chloride 1,000 ml @ 400 mls/hr Q2H30M PRN IV PATENCY; Start 04/30/17 at 08:33; Stop 04/30/17 at 20:32; Status DC Info (PHARMACY MONITORING -- do not chart) 1 each PRN DAILY PRN MC SEE COMMENTS ; Start 04/30/17 at 08:45; Status UNV Sodium Chloride 1,000 ml @ 1,000 mls/hr Q1H PRN IV hypotension; Start 05/03/17 at 08:15; Stop 05/03/17 at 14:14; Status DC Sodium Chloride 1,000 ml @ 400 mls/hr Q2H30M PRN IV PATENCY; Start 05/03/17 at 08:15; Stop 05/03/17 at 20:14; Status DC Info (PHARMACY MONITORING -- do not chart) 1 each PRN DAILY PRN MC SEE COMMENTS ; Start 05/03/17 at 08:15; Status UNV Info (PHARMACY MONITORING -- do not chart) 1 each PRN DAILY PRN MC SEE COMMENTS ; Start 05/03/17 at 08:15; Status UNV Alteplase, Recombinant (Cathflo) 2 mg 1X ONCE INT CAT Last administered on t 06:29; Start 05/04/17 at 06:00; Stop 05/04/17 at 06:01; Status DC Active Scripts Active Hydrocodone-Apap 10-325 (Hydrocodone Bit/Acetaminophen) 1 Each Tablet 1 Tab PO PRN Q6HRS PRN 30 Days Senna-Time S Tablet (Sennosides/Docusate Sodium) 1 Each Tablet 2 Tab PO PRN DAILY PRN Reported Aranesp Syringe (Darbepoetin Noel In Polysorbat) 60 Mcg/0.3 Ml Disp.syrin 60 Mcg SQ WE@2100 Warfarin Sodium 3 Mg Tablet 1 Tab PO DAILY Midodrine Hcl 5 Mg Tablet 5 Mg PO BID at 10 and 18 Clonazepam 0.5 Mg Tablet 1 Tab PO TID [micro guard2% powd] TOP [moriah] Miralax (Polyethylene Glycol 3350) 17 Gm Powd.pack 1 Packet PO DAILY PRN Actos (Pioglitazone Hcl) 45 Mg Tablet 1 Tab PO DAILY Ondansetron HCl 4 mg/2 ml Syr (Ondansetron HCl/Pf) 4 Mg/2 Ml Syringe 4 Mg IV Q4HRS PRN Lomotil Tablet (Diphenoxylate Hcl/Atropine) 1 Each Tablet 1 Tab PO QID PRN Humalog (Insulin Lispro) 100 Unit/1 Ml Cartridge 0 SQ TIDAC sliding scale Lisinopril 10 Mg Tablet 10 Mg PO DAILY Oxycontin (Oxycodone HCl) 10 Mg Tab.er.12h 10 Mg PO BID Nephro-Sara Tablet (Folic Acid/Vitamin B Comp W-C) 0.8 Mg Tablet 0.8 Mg PO DAILY Ferrous Sulfate 325 Mg Tablet 325 Mg PO DAILY Famotidine 20 Mg Tablet 20 Mg PO DAILY Clonazepam 0.5 Mg Tablet 0.5 Mg PO Q6HRS PRN Escitalopram Oxalate 10 Mg Tablet 10 Mg PO DAILY Lantus Solostar (Insulin Glargine,Hum.rec.anlog) 100 Unit/1 Ml Insuln.pen 12 Units SQ QHS Trazodone Hcl 50 Mg Tablet 50 Mg PO PRN QHS PRN Actos (Pioglitazone Hcl) 45 Mg Tablet 1 Tab PO DAILY Tums (Calcium Carbonate) 300 Mg Tab.chew 300 Mg PO TIDAC Atorvastatin Calcium 20 Mg Tablet 40 Mg PO DAILY Vitals/I & O Vital Sign - Last 24 Hours 05/04/17 05/04/17 05/04/17 05/04/17 10:00 11:00 12:00 12:00 Temp 99.4 99.4 Pulse 84 82 87 Resp 29 12 19 B/P (MAP) 113/52 (72) 91/54 (66) 102/56 (71) Pulse Ox 91 90 96 O2 Delivery Nasal Cannula Nasal Cannula Nasal Cannula Nasal Cannula O2 Flow Rate 2.0 2.0 2.0 2.0 05/04/17 05/04/17 05/04/17 05/04/17 12:42 12:50 13:00 13:24 Pulse 85 Resp 15 28 26 B/P (MAP) 105/55 (72) Pulse Ox 96 93 O2 Delivery Nasal Cannula Nasal Cannula O2 Flow Rate 2.0 2.0 2.0 05/04/17 05/04/17 05/04/17 05/04/17 14:00 15:00 16:00 16:00 Temp 99.0 99.0 Pulse 69 70 68 Resp 18 17 17 B/P (MAP) 89/50 (63) 102/54 (70) 104/53 (70) Pulse Ox 95 97 99 O2 Delivery Nasal Cannula Nasal Cannula Nasal Cannula Nasal Cannula O2 Flow Rate 2.0 2.0 2.0 2.0 05/04/17 05/04/17 05/04/17 05/04/17 16:53 17:00 17:52 18:00 Pulse 70 79 67 Resp 18 14 27 B/P (MAP) 102/54 103/56 (72) 108/57 (74) Pulse Ox 99 99 99 O2 Delivery Nasal Cannula Nasal Cannula Nasal Cannula O2 Flow Rate 2.0 2.0 2.0 05/04/17 05/04/17 05/04/17 05/04/17 19:00 19:38 20:00 20:00 Temp 98.3 98.3 Pulse 72 73 Resp 22 22 18 B/P (MAP) 105/57 (73) 81/40 (54) Pulse Ox 97 98 99 O2 Delivery Nasal Cannula Nasal Cannula Nasal Cannula Nasal Cannula O2 Flow Rate 2.0 2.0 2.0 2.0 05/04/17 05/04/17 05/04/17 05/04/17 21:00 21:00 22:00 22:49 Pulse 72 68 Resp 17 17 19 B/P (MAP) 90/50 (63) 94/53 (67) Pulse Ox 99 96 97 O2 Delivery Nasal Cannula Nasal Cannula BiPAP/CPAP O2 Flow Rate 2.0 2.0 2.0 05/04/17 05/04/17 05/05/17 05/05/17 23:00 23:38 00:00 01:00 Temp 98.6 98.6 Pulse 75 88 69 Resp 17 17 17 16 B/P (MAP) 91/53 (66) 90/53 (65) 96/54 (68) Pulse Ox 97 97 95 91 O2 Delivery Nasal Cannula BiPAP/CPAP BiPAP/CPAP BiPAP/CPAP O2 Flow Rate 2.0 05/05/17 05/05/17 05/05/17 05/05/17 02:00 02:49 03:00 03:49 Pulse 69 66 Resp 17 21 22 19 B/P (MAP) 91/52 (65) 86/46 (59) Pulse Ox 91 100 96 98 O2 Delivery BiPAP/CPAP Nasal Cannula BiPAP/CPAP Nasal Cannula O2 Flow Rate 2.0 2.0 05/05/17 05/05/17 05/05/17 05/05/17 04:00 05:00 06:00 07:00 Temp 97.3 97.3 97.3 97.3 Pulse 64 61 64 64 Resp 19 23 14 15 B/P (MAP) 84/48 (60) 92/49 (63) 86/50 (62) 87/45 (59) Pulse Ox 98 98 98 98 O2 Delivery BiPAP/CPAP BiPAP/CPAP BiPAP/CPAP BiPAP/CPAP 05/05/17 05/05/17 05/05/17 05/05/17 07:47 07:47 08:00 08:15 Pulse 68 66 Resp 17 B/P (MAP) 87/45 97/66 (76) Pulse Ox 98 98 O2 Delivery Nasal Cannula Nasal Cannula Nasal Cannula O2 Flow Rate 2.0 2.0 2.0 05/05/17 05/05/1705/05/17 08:31 08:31 09:02 Temp 97.3 97.3 Pulse 58 59 Resp 14 B/P (MAP) 99/52 102/52 Pulse Ox 98 O2 Delivery Nasal Cannula O2 Flow Rate 2.0 Intake and Output 05/04/17 05/04/17 05/05/17 15:00 23:00 07:00 Intake Total 200 ml 100 ml 300 ml Balance 200 ml 100 ml 300 ml MORRIS HARMAN MD May 05, 2017 09:44
[2017-05-05] MEDS ORDERED: IV NORMAL SALINE 1000ML BAG 1,000 ML IV PRN (09:49)
[2017-05-05] MEDS ORDERED: DIALYSIS PATIENT. MC PRN (10:00)
--- NOTE | 2017-05-05 10:13 | PDOC ---
PROGRESS NOTES Subjective Subjective getting dialysis today Objective Objective Vital Signs Date Time Temp Pulse Resp B/P (MAP) Pulse Ox O2 Delivery O2 Flow Rate FiO2 05/05/17 09:15 61 11 92/47 (62) 100 Nasal Cannula 2.0 05/05/17 09:02 97.3 97.3 Intake and Output 05/05/17 07:00 Intake Total 600 ml Balance 600 ml Intake Oral 600 ml # Bowel Movements 2 Physical Exam Abdomen: Normal bowel sounds, Soft Heart: Regular rate, Normal S1, Normal S2, Other (regular rate and rhythm S1- S2 2/6 systolic murmur. 1 to 2/6 diastolic murmur.) Extremities: No clubbing, Other (right leg has been amputated and there is a dressing over the stump from an area that is infected. The left leg is in a dressing that covers the leg and foot below the knee. The left hand and wrist are completely dressed.) General: Alert, Oriented X3, Cooperative HEENT: PERRLA Lungs: Normal air movement MUSCULOSKELETAL: Other Neck: No JVD Neuro: Normal speech Psych/Mental Status: Mental status NL Skin: Other (lt 4.5 fingers eschar) COMMENT dressing left thigh Assessment Assessment 1. Shifting of the distal femoral fragment. The patient had intramedullary nailing done earlier this month, gone for revision 04/28/17. 2. End-stage renal disease, on hemodialysis. 3. Insulin-dependent diabetes. 4. Right [id number] amputation. 5. Congestive heart failure, chronic, systolic.30% EJF 6. Chronic atrial fibrillation, on Coumadin. PLAN: d/c to select today Hb 6.9 ,getting 1 u prbc today . ORIF L femur fx POD #7 - ortho following hypotension - resolved - anemia a/c - post PRC and ffp Hgb 7.4 anticoagulation - INR2.9- last dose Warfarin 3mg 04/30 - pharmacy managing DM - BS 150 ESRD - hemodialysis mwf sleep apnea - CPAP nightly at CAD - cardiology following - asymptomatic Problems: Comment Review of Relevant I have reviewed the following items maria teresa (where applicable) has been applied. Labs Laboratory Tests Test 05/04/17 12:22 05/04/17 16:56 05/04/17 20:53 05/05/17 06:00 Glucose (Fingerstick) 160 mg/dL (70-99) 163 mg/dL (70-99) 175 mg/dL (70-99) White Blood Count 8.4 x10^3/uL (4.0-11.0) Red Blood Count 2.39 x10^6/uL (4.30-5.70) Hemoglobin 6.9 g/dL (13.0-17.5) Hematocrit 21.5 % (39.0-53.0) Mean Corpuscular Volume 90 fL (79-100) Mean Corpuscular Hemoglobin 29 pg (25-35) Mean Corpuscular Hemoglobin Concent 32 g/dL (31-37) Red Cell Distribution Width 17.8 % (11.5-14.5) Platelet Count 346 x10^3/uL (140-400) Neutrophils (%) (Auto) 74 % (31-73) Lymphocytes (%) (Auto) 15 % (24-48) Monocytes (%) (Auto) 8 % (0-9) Eosinophils (%) (Auto) 3 % (0-3) Basophils (%) (Auto) 1 % (0-3) Neutrophils # (Auto) 6.3 x10^3uL (1.8-7.7) Lymphocytes # (Auto) 1.2 x10^3/uL (1.0-4.8) Monocytes # (Auto) 0.7 x10^3/uL (0.0-1.1) Eosinophils # (Auto) 0.2 x10^3/uL (0.0-0.7) Basophils # (Auto) 0.1 x10^3/uL (0.0-0.2) Prothrombin Time 26.9 SEC (11.7-14.0) Prothromb Time International Ratio 2.7 (0.8-1.1) Sodium Level 133 mmol/L (136-145) Potassium Level 4.1 mmol/L (3.5-5.1) Chloride Level 94 mmol/L (98-107) Carbon Dioxide Level 29 mmol/L (21-32) Anion Gap 10 (6-14) Blood Urea Nitrogen 39 mg/dL (8-26) Creatinine 5.3 mg/dL (0.7-1.3) Estimated GFR (Cockcroft-Gault) 11.2 Glucose Level 150 mg/dL (70-99) Calcium Level 8.0 mg/dL (8.5-10.1) Medications Current Medications Info (PHARMACY MONITORING -- do not chart) 1 each PRN DAILY PRN MC SEE COMMENTS ; Start 05/05/17 at 10:00; Status UNV Sodium Chloride 1,000 ml @ 1,000 mls/hr Q1H PRN IV hypotension; Start 05/05/17 at 09:49; Stop 05/05/17 at 15:48 Vitals/I & O Vital Sign - Last 24 Hours 05/04/17 05/04/17 05/04/17 05/04/17 11:00 12:00 12:00 12:42 Temp 99.4 99.4 Pulse 82 87 Resp 12 19 B/P (MAP) 91/54 (66) 102/56 (71) Pulse Ox 90 96 O2 Delivery Nasal Cannula Nasal Cannula Nasal Cannula O2 Flow Rate 2.0 2.0 2.0 2.0 05/04/17 05/04/17 05/04/17 05/04/17 12:50 13:00 13:24 14:00 Pulse 85 69 Resp 15 28 26 18 B/P (MAP) 105/55 (72) 89/50 (63) Pulse Ox 96 93 95 O2 Delivery Nasal Cannula Nasal Cannula Nasal Cannula O2 Flow Rate 2.0 2.0 2.0 05/04/17 05/04/17 05/04/17 05/04/17 15:00 16:00 16:00 16:53 Temp 99.0 99.0 Pulse 70 68 70 Resp 17 17 B/P (MAP) 102/54 (70) 104/53 (70) 102/54 Pulse Ox 97 99 O2 Delivery Nasal Cannula Nasal Cannula Nasal Cannula O2 Flow Rate 2.0 2.0 2.0 05/04/17 05/04/17 05/04/17 05/04/17 17:00 17:52 18:00 19:00 Pulse 79 67 72 Resp 18 14 27 22 B/P (MAP) 103/56 (72) 108/57 (74) 105/57 (73) Pulse Ox 99 99 99 97 O2 Delivery Nasal Cannula Nasal Cannula Nasal Cannula Nasal Cannula O2 Flow Rate 2.0 2.0 2.0 2.0 05/04/17 05/04/17 05/04/17 05/04/17 19:38 20:00 20:00 21:00 Temp 98.3 98.3 Pulse 73 Resp 22 18 B/P (MAP) 81/40 (54) Pulse Ox 98 99 O2 Delivery Nasal Cannula Nasal Cannula Nasal Cannula O2 Flow Rate 2.0 2.0 2.0 2.0 05/04/17 05/04/17 05/04/17 05/04/17 21:00 22:00 22:49 23:00 Pulse 72 68 75 Resp 17 17 19 17 B/P (MAP) 90/50 (63) 94/53 (67) 91/53 (66) Pulse Ox 99 96 97 97 O2 Delivery Nasal Cannula Nasal Cannula BiPAP/CPAP Nasal Cannula O2 Flow Rate 2.0 2.0 2.0 05/04/17 05/05/17 05/05/17 05/05/17 23:38 00:00 01:00 02:00 Temp 98.6 98.6 Pulse 88 69 69 Resp 17 17 16 17 B/P (MAP) 90/53 (65) 96/54 (68) 91/52 (65) Pulse Ox 97 95 91 91 O2 Delivery BiPAP/CPAP BiPAP/CPAP BiPAP/CPAP BiPAP/CPAP 05/05/17 05/05/17 05/05/17 05/05/17 02:49 03:00 03:49 04:00 Temp 97.3 97.3 Pulse 66 64 Resp 21 22 19 19 B/P (MAP) 86/46 (59) 84/48 (60) Pulse Ox 100 96 98 98 O2 Delivery Nasal Cannula BiPAP/CPAP Nasal Cannula BiPAP/CPAP O2 Flow Rate 2.0 2.0 05/05/17 05/05/17 05/05/17 05/05/17 05:00 06:00 07:00 07:47 Temp 97.3 97.3 Pulse 61 64 64 68 Resp 23 14 15 B/P (MAP) 92/49 (63) 86/50 (62) 87/45 (59) 87/45 Pulse Ox 98 98 98 O2 Delivery BiPAP/CPAP BiPAP/CPAP BiPAP/CPAP 05/05/17 05/05/17 05/05/17 05/05/17 07:47 08:00 08:15 08:31 Pulse 66 58 Resp 17 B/P (MAP) 97/66 (76) 99/52 Pulse Ox 98 98 O2 Delivery Nasal Cannula Nasal Cannula Nasal Cannula O2 Flow Rate 2.0 2.0 2.0 05/05/17 05/05/17 05/05/17 08:31 09:02 09:15 Temp 97.3 97.3 Pulse 59 61 Resp 14 11 B/P (MAP) 102/52 92/47 (62) Pulse Ox 98 100 O2 Delivery Nasal Cannula Nasal Cannula O2 Flow Rate 2.0 2.0 Intake and Output 05/04/17 05/04/17 05/05/17 15:00 23:00 07:00 Intake Total 200 ml 100 ml 300 ml Balance 200 ml 100 ml 300 ml RADHA MEYER MD May 05, 2017 10:13
--- NOTE | 2017-05-05 10:25 | PDOC ---
Dialysis Progress Note Dialysis Note Dialysis Note Seen on Hemodialysis, tolerating treatment Okay so far; remains marginal BP vazquez off Pressors Vitals on Hemodialysis: 102/52 63 afeb General Appearance: Awake: Alert Oriented x 3 Neck: No JVD or JVP Chest: CTA Breezy Heart: S1 S2 Abdomen - Soft NTND Extremities - No Edema ESRD: Dialysis as below F 180 NR 4.5 Hrs 3 K 2.5 Ca 140 Na 35 HC03 Qb 350 + Qd 500+ Heparin 0 Units Uf 1-2 Kgs or to dry weight as tolerated Getting 1U pRBCs on HD today May give 25-50 gms of 25% Albumin if needed to maintain Hemodynamic stability Treatment plan reviewed and 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 with roll form operator Vitals Vital Signs Vital Signs Date Time Temp Pulse Resp B/P (MAP) Pulse Ox O2 Delivery O2 Flow Rate FiO2 05/05/17 09:15 61 11 92/47 (62) 100 Nasal Cannula 2.0 05/05/17 09:02 97.3 97.3 Labs Last Labs Laboratory Tests Test 05/03/17 10:59 05/03/17 14:27 05/03/17 21:24 05/04/17 05:45 Glucose (Fingerstick) 116 mg/dL (70-99) 100 mg/dL (70-99) 133 mg/dL (70-99) White Blood Count 6.4 x10^3/uL (4.0-11.0) Red Blood Count 2.46 x10^6/uL (4.30-5.70) Hemoglobin 7.0 g/dL (13.0-17.5) Hematocrit 21.9 % (39.0-53.0) Mean Corpuscular Volume 89 fL (79-100) Mean Corpuscular Hemoglobin 29 pg (25-35) Mean Corpuscular Hemoglobin Concent 32 g/dL (31-37) Red Cell Distribution Width 17.3 % (11.5-14.5) Platelet Count 323 x10^3/uL (140-400) Neutrophils (%) (Auto) 71 % (31-73) Lymphocytes (%) (Auto) 15 % (24-48) Monocytes (%) (Auto) 10 % (0-9) Eosinophils (%) (Auto) 4 % (0-3) Basophils (%) (Auto) 1 % (0-3) Neutrophils # (Auto) 4.6 x10^3uL (1.8-7.7) Lymphocytes # (Auto) 1.0 x10^3/uL (1.0-4.8) Monocytes # (Auto) 0.6 x10^3/uL (0.0-1.1) Eosinophils # (Auto) 0.2 x10^3/uL (0.0-0.7) Basophils # (Auto) 0.1 x10^3/uL (0.0-0.2) Prothrombin Time 26.8 SEC (11.7-14.0) Prothromb Time International Ratio 2.7 (0.8-1.1) Sodium Level 133 mmol/L (136-145) Potassium Level 3.9 mmol/L (3.5-5.1) Chloride Level 98 mmol/L (98-107) Carbon Dioxide Level 29 mmol/L (21-32) Anion Gap 6 (6-14) Blood Urea Nitrogen 28 mg/dL (8-26) Creatinine 3.8 mg/dL (0.7-1.3) Estimated GFR (Cockcroft-Gault) 16.4 Glucose Level 105 mg/dL (70-99) Calcium Level 8.2 mg/dL (8.5-10.1) Test 05/04/17 08:38 05/04/17 12:22 05/04/17 16:56 05/04/17 20:53 Glucose (Fingerstick) 92 mg/dL (70-99) 160 mg/dL (70-99) 163 mg/dL (70-99) 175 mg/dL (70-99) Test 05/05/17 06:00 White Blood Count 8.4 x10^3/uL (4.0-11.0) Red Blood Count 2.39 x10^6/uL (4.30-5.70) Hemoglobin 6.9 g/dL (13.0-17.5) Hematocrit 21.5 % (39.0-53.0) Mean Corpuscular Volume 90 fL (79-100) Mean Corpuscular Hemoglobin 29 pg (25-35) Mean Corpuscular Hemoglobin Concent 32 g/dL (31-37) Red Cell Distribution Width 17.8 % (11.5-14.5) Platelet Count 346 x10^3/uL (140-400) Neutrophils (%) (Auto) 74 % (31-73) Lymphocytes (%) (Auto) 15 % (24-48) Monocytes (%) (Auto) 8 % (0-9) Eosinophils (%) (Auto) 3 % (0-3) Basophils (%) (Auto) 1 % (0-3) Neutrophils # (Auto) 6.3 x10^3uL (1.8-7.7) Lymphocytes # (Auto) 1.2 x10^3/uL (1.0-4.8) Monocytes # (Auto) 0.7 x10^3/uL (0.0-1.1) Eosinophils # (Auto) 0.2 x10^3/uL (0.0-0.7) Basophils # (Auto) 0.1 x10^3/uL (0.0-0.2) Prothrombin Time 26.9 SEC (11.7-14.0) Prothromb Time International Ratio 2.7 (0.8-1.1) Sodium Level 133 mmol/L (136-145) Potassium Level 4.1 mmol/L (3.5-5.1) Chloride Level 94 mmol/L (98-107) Carbon Dioxide Level 29 mmol/L (21-32) Anion Gap 10 (6-14) Blood Urea Nitrogen 39 mg/dL (8-26) Creatinine 5.3 mg/dL (0.7-1.3) Estimated GFR (Cockcroft-Gault) 11.2 Glucose Level 150 mg/dL (70-99) Calcium Level 8.0 mg/dL (8.5-10.1) Laboratory Tests Test 05/04/17 12:22 05/04/17 16:56 05/04/17 20:53 05/05/17 06:00 Glucose (Fingerstick) 160 mg/dL (70-99) 163 mg/dL (70-99) 175 mg/dL (70-99) White Blood Count 8.4 x10^3/uL (4.0-11.0) Red Blood Count 2.39 x10^6/uL (4.30-5.70) Hemoglobin 6.9 g/dL (13.0-17.5) Hematocrit 21.5 % (39.0-53.0) Mean Corpuscular Volume 90 fL (79-100) Mean Corpuscular Hemoglobin 29 pg (25-35) Mean Corpuscular Hemoglobin Concent 32 g/dL (31-37) Red Cell Distribution Width 17.8 % (11.5-14.5) Platelet Count 346 x10^3/uL (140-400) Neutrophils (%) (Auto) 74 % (31-73) Lymphocytes (%) (Auto) 15 % (24-48) Monocytes (%) (Auto) 8 % (0-9) Eosinophils (%) (Auto) 3 % (0-3) Basophils (%) (Auto) 1 % (0-3) Neutrophils # (Auto) 6.3 x10^3uL (1.8-7.7) Lymphocytes # (Auto) 1.2 x10^3/uL (1.0-4.8) Monocytes # (Auto) 0.7 x10^3/uL (0.0-1.1) Eosinophils # (Auto) 0.2 x10^3/uL (0.0-0.7) Basophils # (Auto) 0.1 x10^3/uL (0.0-0.2) Prothrombin Time 26.9 SEC (11.7-14.0) Prothromb Time International Ratio 2.7 (0.8-1.1) Sodium Level 133 mmol/L (136-145) Potassium Level 4.1 mmol/L (3.5-5.1) Chloride Level 94 mmol/L (98-107) Carbon Dioxide Level 29 mmol/L (21-32) Anion Gap 10 (6-14) Blood Urea Nitrogen 39 mg/dL (8-26) Creatinine 5.3 mg/dL (0.7-1.3) Estimated GFR (Cockcroft-Gault) 11.2 Glucose Level 150 mg/dL (70-99) Calcium Level 8.0 mg/dL (8.5-10.1) YUMIKO SCHAFER MD May 05, 2017 10:25
[2017-05-05] MEDS: oxyCODONE ER 10 MG TAB.ER.12H PO SCH (11:25)
[2017-05-05] MEDS: ATORVASTATIN CALCIUM 40 MG TABLET. PO SCH (12:49)
[2017-05-05] MEDS: PIOGLITAZONE 15 MG TABLET. PO SCH (12:49)
[2017-05-05] MEDS: FAMOTIDINE 20 MG TABLET. PO SCH (12:49)
[2017-05-05] MEDS: clonazePAM 0.5 MG TABLET PO SCH ×2 (12:49→13:39)
[2017-05-05] MEDS: CITALOPRAM 20 MG TABLET. PO SCH (12:50)
[2017-05-05] MEDS: FOLIC/VIT B COMP W-C (RENAL) TABLET. PO SCH (12:50)
--- NOTE | 2017-05-07 15:40 | PDOC ---
Provider Note Provider Note Discharge summary dictated. #[id number] RADHA MEYER MD May 07, 2017 15:40
--- NOTE | 2017-05-07 17:36 | DS ---
DATE OF DISCHARGE: 05/05/2017 REASON FOR ADMISSION TO THE HOSPITAL: Distal femoral fracture. CONSULTATIONS: Dr. Prater and Dr. Damon, Cardiology. PROCEDURES DONE: Hemodialysis, echocardiogram, and blood transfusion. HOSPITAL COURSE: The patient is a 61-year-old male with a history of a distal femur fracture, had an intramedullary elieser placed. He was at [facility], had seen orthopedic. The patient has sustained a new distal femoral fracture distal to the elieser and the patient was admitted to the hospital and taken to surgery on 04/29/2017. The patient had ____ reduction and internal fixation of left distal femoral fracture with placement of plate and screws. The patient had blood loss during the surgery, had to be given FFP and packed RBCs 6 units. The patient was in the ICU, was hypotensive requiring Levophed. The patient was given dialysis and finally his blood pressure improved, was taken off pressors and he was transferred to [facility] [place]. The patient is continued on anticoagulation. INR was therapeutic. Hemoglobin around 8 and he is on dialysis 3 times a week. FINAL DIAGNOSES: 1. Distal femoral fracture. The patient had intramedullary nailing and plate and screws, requiring blood or blood products due to excessive bleeding. 2. Atrial fibrillation, on Coumadin. 3. End-stage renal disease, on dialysis. 4. Diabetes, insulin-dependent. 5. History of previous right [id number] amputation. DISPOSITION: Transferred to [facility]. RADHA MEYER MD DR: TODD/makenna JOB#: [id number] / [id number]
== END 2017-05-05 14:22 | DRG 480 ==
LOC: 4 NORTH 16:36 → 1 WEST ICU 04-29 19:13
PROVIDERS: ADMIT Internal Medicine; ATTEND Internal Medicine
PROC: 5A09557 Assistance with Respiratory Ventilation, Greater than 96 Consecutive Hours, Continuous Positive Airway Pressure (ICD-10-PCS; 2017-04-29)
PROC: 30233N1 Transfusion of Nonautologous Red Blood Cells into Peripheral Vein, Percutaneous Approach (ICD-10-PCS; 2017-04-29)
PROC: 30233K1 Transfusion of Nonautologous Frozen Plasma into Peripheral Vein, Percutaneous Approach (ICD-10-PCS; 2017-04-29)
PROC: 5A1D70Z Performance of Urinary Filtration, Intermittent, Less than 6 Hours Per Day (ICD-10-PCS; 2017-04-29)
PROC: 5A1D70Z Performance of Urinary Filtration, Intermittent, Less than 6 Hours Per Day (ICD-10-PCS; 2017-04-29)
PROC: 0QSC04Z Reposition Left Lower Femur with Internal Fixation Device, Open Approach (ICD-10-PCS; principal; 2017-04-29 16:00)
DX: S72.402A Unspecified fracture of lower end of left femur, initial encounter for closed fracture (principal); N18.6 End stage renal disease; I13.2 Hypertensive heart and chronic kidney disease with heart failure and with stage 5 chronic kidney disease, or end stage renal disease; E11.22 Type 2 diabetes mellitus with diabetic chronic kidney disease; E11.42 Type 2 diabetes mellitus with diabetic polyneuropathy; I95.9 Hypotension, unspecified; I27.20 Pulmonary hypertension, unspecified; E11.51 Type 2 diabetes mellitus with diabetic peripheral angiopathy without gangrene; M86.8X8 Other osteomyelitis, other site; I50.22 Chronic systolic (congestive) heart failure; W18.30XA Fall on same level, unspecified, initial encounter; D64.9 Anemia, unspecified; D72.829 Elevated white blood cell count, unspecified; E11.622 Type 2 diabetes mellitus with other skin ulcer; E78.5 Hyperlipidemia, unspecified; I25.10 Atherosclerotic heart disease of native coronary artery without angina pectoris; I48.2 Chronic atrial fibrillation; L98.499 Non-pressure chronic ulcer of skin of other sites with unspecified severity; Z79.4 Long term (current) use of insulin; Z79.01 Long term (current) use of anticoagulants; Z83.3 Family history of diabetes mellitus; Z86.711 Personal history of pulmonary embolism; Z89.429 Acquired absence of other toe(s), unspecified side; Z89.511 Acquired absence of right leg below knee; Z99.2 Dependence on renal dialysis; E21.3 Hyperparathyroidism, unspecified; E11.69 Type 2 diabetes mellitus with other specified complication; Y93.89 Activity, other specified; Y92.89 Other specified places as the place of occurrence of the external cause; Y99.8 Other external cause status
CPT/HCPCS: 36415; 76000; 80048; 80053; 82306; 82962; 85007; 85025; 85027; 85610; 85730; 86706; 86850; 86900; 86901; 86920; 86927; 87340; 87341; 87641; 93306; C1713; J0330; J0690; J0881; J1815; J2405; J2704; J2710; J2997; J3010; J3490; J7050; P9016; P9017; P9045; J2001; J7030